=== PATIENT | female | born 1940 | race Caucasian/White ===

== ENCOUNTER → 2017-11-02 11:05 | Outpatient (CLI) | payer MEDICARE, OTHER, SELFPAY ==
[2014-05-31 16:10] VITALS: BP 128/66; BP 135/78; BP 173/44
[2014-07-06 18:09] VITALS: BMI 25.8
[2014-07-06 20:41] VITALS: BP 158/94
== END ==
PROVIDERS: Family Provider Internal Medicine; PCP Internal Medicine; Visit Provider Urology
DX: R35.0 Frequency of micturition (principal)
CPT/HCPCS: 36415; 87077; 87086; 87088; 87186

== ENCOUNTER → 2018-04-19 16:55 | Outpatient (CLI) | payer MEDICARE, OTHER, SELFPAY ==
--- NOTE | 2018-04-19 | CYSPIN_PTH ---
PATIENT: MATTIE FOX LOC: [facility] U#:[id number] AGE/SX: 85/F ROOM: RE04/19/[address]: RABIA Guzman : 1940 BED: DIS: SPEC #: [id number] RECD: 04/19/18 15:30 STATUS: STEPH DANIEL #: [id number] YOLIS: 04/19/18 00:[address]: Ammy Brennan NP DEPT: CYTOLOGY RECD BY: Bruce Light ENTERED: 04/20/18 07:58 SP TYPE: CYSPIN FL OTHR DR: Dr. Matheus Fajardo MD Tissues: Urine Procedures: Pap Stain (control) Special Stain Group II Cytospin Fluid HEADER OPERATION: Not noted PRE-OP DIAGNOSIS: Hematuria TISSUE SUBMITTED: Urine for cytology DIAGNOSIS CYTOLOGY Urine for cytology (cytospin): Negative for malignant cells. Bloody specimen. SJ:estrada 04/21/18 COMMENT Please make reference to previous cytology specimen ([id number]), urine for cytology with diagnosis of a few atypical urothelial cells noted and acute inflammation. CYTOLOGY STUDY Slides are reviewed. CYTOLOGY GROSS Received is 30 ml of clear yellow fluid labeled with the patient's name and and designated per the requisition as urine. Submitted for cytology preparation. / 04/20/18 TC: CPT: 32194
[2018-04-19 16:57] LABS: Cytology, Body Fluid / CSF SEE PATHOLOGY REPORT
== END ==
PROVIDERS: Family Provider Internal Medicine; PCP Internal Medicine; Visit Provider Nurse Practitioner Adult Health
DX: R31.9 Hematuria, unspecified (principal)
CPT/HCPCS: 88108; 88313

== ENCOUNTER → 2019-01-31 17:13 | Outpatient (CLI) | payer MEDICARE, OTHER, SELFPAY ==
[2014-07-06 18:09] VITALS: BMI 25.8
--- NOTE | 2019-01-31 | FLU_PTH ---
PATIENT: MATTIE FOX LOC: [facility] U#:[id number] AGE/SX: 85/F ROOM: RE01/31/[address]: RABIA Guzman : 1940 BED: DIS: SPEC #: [id number] RECD: 01/31/19 15:00 STATUS: STEPH DANIEL #: [id number] YOLIS: 01/31/19 00:[address]: Ammy Brennan NP DEPT: CYTOLOGY RECD BY: Leroy Wallis ENTERED: 02/01/19 09:02 SP TYPE: Fluid OTHR DR: Dr. Matheus Fajardo MD Tissues: Urine Procedures: Special Stain Group II Cytospin Fluid HEADER OPERATION: Not noted PRE-OP DIAGNOSIS: Microscopic hematuria TISSUE SUBMITTED: Urine for cytology DIAGNOSIS CYTOLOGY Urine for cytology (cytospin): Negative for malignant cells. See cytology study and comment. SJ:estrada 02/02/19 COMMENT Please make reference to previous specimens ([id number]) urine for cytology with diagnosis of a few atypical urothelial cells noted and acute inflammation and ([id number]) urine for cytology with diagnosis of negative for malignant cells, bloody specimen. CYTOLOGY STUDY Slides are reviewed. The specimen is cellular and predominantly consists of squamous epithelial cells. CYTOLOGY GROSS Received is 7 ml of yellow cloudy fluid labeled with the patient's name and and designated per the requisition as urine. Submitted for cytology preparation. /CC:cc 02/01/19 TC:4 CPT: 54251
[2019-01-31 18:11] LABS: Cytology, Body Fluid / CSF SEE PATHOLOGY REPORT; Mucous, Urine 0 SEEN /hpf (<or=2+); Red Blood Cells-Urine 0 SEEN /hpf (0-5)
[2019-01-31 19:03] LABS: Color, Urine Yellow (Yellow); Glucose, Dipstick Normal (Normal); Ketone-Dipstick Negative (Negative); Leukocyte Esterase-Dipstick 25 /ul (Negative); Nitrite-Dipstick Negative (Negative); Occult Blood-Urine 50 /ul (Negative); Protein-Dipstick Negative (Negative); Urine Bilirubin Dipstick Negative (Negative); Urine Clarity Clear (Clear); Urine Urobilinogen Normal (Normal)
[2019-01-31 19:13] LABS: Bacteria RARE /hpf (None Seen); Calcium Oxalate Crystals Ur 1+ /hpf (<or=2+); Squamous Epithelial Cells - UA 0-5 SEEN /hpf (5-10); White Blood Cells 0-5 SEEN /hpf (0-5)
== END ==
PROVIDERS: Family Provider Internal Medicine; PCP Internal Medicine; Referring Provider Nurse Practitioner Adult Health; Visit Provider Nurse Practitioner Adult Health
DX: R31.29 Other microscopic hematuria (principal)
CPT/HCPCS: 81001; 88108; 88305; 88313

== ENCOUNTER → 2019-09-20 08:43 | Outpatient (CLI) | payer MEDICARE, OTHER, SELFPAY ==
[2019-09-08 11:15] VITALS: BMI 27.7
--- NOTE | 2019-09-20 08:44 | ECHOCS_ITS ---
Reason For Study: Murmur Procedure This was a 2D Doppler, Color Flow transthoracic echocardiogram. The study was technically difficult. Contrast injection was performed. Exam performed in department. Left Ventricle Normal LV size. Left ventricular systolic function is normal. The estimated ejection fraction is 65 %. Diastolic function is indeterminate. No regional wall motion abnormalities noted. Right Ventricle Normal RV size. Normal systolic function. Atria Normal left atrium. Normal right atrium. No doppler evidence for ASD. Mitral Valve There is no mitral annular calcification. Mild focal mitral valve calcification of the anterior leaflet. Mild mitral valve stenosis. Mild (1+) mitral valve insufficiency. Tricuspid Valve Normal tricuspid valve. Trivial tricuspid valve insufficiency. Right ventricular systolic pressure estimated to be 25 mmHg. Aortic Valve Trisinus/trileaflet aortic valve. Mild focal aortic valve thickening. Mild focal aortic valve calcification. Mild aortic stenosis. Pulmonic Valve The pulmonic valve is not well visualized. Great Vessels Normal sized aortic root. Pericardium/Pleural No pericardial effusion. Medication Diluted definity 4ml given slow IV push to enhance endocardial definition. MMode/2D Measurements & Calculations LVIDd: 3.6 cm IVSd: 1.0 cm LVOT diam: 2.0 cm LVIDs: 2.5 cm LVPWd: 1.0 cm RVDd: 3.6 cm FS: 31.0 % LVOT area: 3.2 cm2 Ao root diam: 2.9 cm LAV(MOD-bp): 40.6 ml LA A4 area: 15.4 cm2 LAV(MOD-bp) Indexed: 21.5 ml/m2 LAV(MOD-sp2): 43.6 ml LAV(MOD-sp4): 36.6 ml RA A4 area: 12.0 cm2 Time Measurements MV dec time: 0.26 sec Doppler Measurements & Calculations MV E max efra: 100.8 cm/sec Lat Peak E' Efra: 6.6 cm/sec Med Peak E' Efra: 6.4 cm/sec MV A max efra: 124.0 cm/sec E/E' lat: 15.3 E/E' med: 15.8 MV E/A: 0.81 MV V2 max: 137.7 cm/sec MV P1/2t max efra: 124.2 cm/sec Ao V2 max: 201.6 cm/sec MV max P.6 mmHg MV P1/2t: 95.6 msec Ao max P.3 mmHg MV V2 mean: 71.5 cm/sec MV dec slope: 380.6 cm/sec2 Ao V2 mean: 144.8 cm/sec MV mean P.5 mmHg Ao mean P.2 mmHg MV V2 VTI: 46.4 cm MVA(P1/2t): 2.3 cm2 Ao V2 VTI: 48.3 cm MVA(VTI): 1.6 cm2 MAURISIO(I,D): 1.5 cm2 MAURISIO(V,D): 1.5 cm2 LV V1 max: 93.4 cm/sec SV(LVOT): 73.8 ml TR max efra: 232.8 cm/sec LV V1 max P.5 mmHg TR max P.7 mmHg LV V1 mean P.6 mmHg LV V1 mean: 56.6 cm/sec LV V1 VTI: 23.4 cm Interpretation Summary The study was technically difficult. Contrast injection was performed. Left ventricular systolic function is normal. The estimated ejection fraction is 65 %. Mild focal mitral valve calcification of the anterior leaflet. Mild mitral valve stenosis. Mild (1+) mitral valve insufficiency. Trivial tricuspid valve insufficiency. Mild aortic stenosis. Right ventricular systolic pressure estimated to be 25 mmHg. Diastolic function is indeterminate. Ordering Physician: Ruiz Rivera Referring Physician: Ruiz Rivera Performed By: Lino Marquez, [facility]
--- NOTE | 2019-09-20 08:44 | AAVD_ITS ---
Reason For Study: AAA Aorta Measurements Aorta Doppler Measurements Proximal aorta measures1.70 x 1.72cm. in cross- Peak systolic flow velocities within the proximal sectional axis. aorta measure 80.3 cm/sec. Proximal aorta measures1.72cm. in longitudinal Peak systolic flow velocities within the mid aorta axis. measure 100.1 cm/sec. Mid aorta measures1.69 x 1.63cm. in cross- Peak systolic flow velocities within the distal sectional axis. aorta measure 284.9 cm/sec. Mid aorta measures1.81cm. in longitudinal axis. Distal aorta measures1.03 x 1.03cm. in cross- sectional axis. Distal aorta measures1.0cm. in longitudinal axis. Left Iliac Artery Left iliac artery measures 0.49 x 0.51 cm. in the cross-sectional axis. Left iliac artery measures 0.56 cm. in the longitudinal axis. Peak systolic velocity in the left iliac artery measures 99.7 cm/sec. Right Iliac Artery Right iliac artery measures 0.56 x 0.55 cm. in the cross-sectional axis. Right iliac artery measures 0.56 cm. in the longitudinal axis. Peak systolic velocity in the right iliac artery measures 126 cm/sec. Procedure Aorta IVC Iliac vasculature or bypass grafts 33120. Exam performed in department. Interpretation Summary Maximal aortic dimensions 1.7 x 1.7 cm proximal abdominal aorta Increased flow velocities noted in the distal abdominal aorta at 284.9 cm/s flow. This is consistent with arterial occlusive disease. Left common iliac measures 0.49 x 0.51 cm with normal velocity. Right common iliac measures 0.56 x 0.55 cm with minimally increased velocities. Ordering Physician: Sary Anderson Referring Physician: Matheus Fajardo M.D. Performed By: Rita Dinero RVT
== END ==
PROVIDERS: Family Provider Internal Medicine; PCP Internal Medicine; Referring Provider Internal Medicine Cardiovascular Disease; Visit Provider Internal Medicine Cardiovascular Disease
DX: I71.4 Abdominal aortic aneurysm, without rupture (principal); I35.8 Other nonrheumatic aortic valve disorders; I10 Essential (primary) hypertension; R60.0 Localized edema
CPT/HCPCS: 93306; 93978; Q9957; A4216; C8929

== ENCOUNTER 2019-10-19 22:43 | Emergency (ER) | payer MEDICARE, SELFPAY ==
[2019-09-08 11:15] VITALS: BMI 27.7
[2019-10-19 22:44] VITALS: BP 149/67; PULSE 64; RESP 18; TEMP 36.8; O2SAT 95; BMI 28.2
--- NOTE | 2019-10-19 23:05 | ED.VIS.GEN ---
History of Present Illness Chief Complaint: Allergic Reaction Narrative: Patient is an 79-year-old female who presents with itching of her hands and feet. She states she has been having sinus issues and sinus drainage. She was prescribed Augmentin by her primary care physician. She has taken this medication previously. At about 830 she took the first dose and about 1 hour later developed itching of her hands and feet. No rash. No difficulty breathing. She states that she figured she should probably just take some Benadryl but she did not have any at home so presented here to the emergency department. Past Medical History - Allergies and Home Meds Allergies/Adverse Reactions: Allergies hydrocodone Allergy (Verified 10/19/19 22:46) Rash Sulfa (Sulfonamide Antibiotics) Allergy (Verified 10/19/19 22:46) Unknown acetaminophen [From Vicodin] Adverse Reaction (Verified 10/19/19 22:46) Other hydrocodone bitartrate [From Vicodin] Adverse Reaction (Verified 10/19/19 22:46) Other lovastatin [From Mevacor] Adverse Reaction (Verified 10/19/19 22:46) Other rosuvastatin calcium [From Crestor] Adverse Reaction (Verified 10/19/19 22:46) Other simvastatin [From Zocor] Adverse Reaction (Verified 10/19/19 22:46) Other Primary Care Physician: Matheus Fajardo MD [Primary Care Provider] - Past Medical History: - - Hypertension, hyperlipidemia Smoking Status: Current every day smoker Review of Systems All systems negative except as indicated General: Denies: Fever ENT: Reports: - - Sinus pressure and drainage Cardiovascular: Denies: Chest pain Respiratory: Denies: Dyspnea Gastrointestinal: Denies: Nausea, Vomiting Skin: Denies: Rash Neurological: Denies: Headache Allergy: Denies: Uticaria Physical Exam Vital Signs/Narrative: Vital Signs Temp Pulse Resp BP Pulse Ox 10/19/19 22:44 98.2 F 64 18 149/67 H 95 Inital Vital Signs reviewed: Yes General: Well nourished Head: Normocephalic Eyes: EOMI ENT: Moist mucous membranes, - - Airway patent Neck: Supple Cardiovascular: Regular rate, Regular rhythm Respiratory: No distress, CTA bilaterally. Negative for: Wheezing Abdomen: Soft Skin: Normal color, No rash Neurological: Alert Psychological: Normal affect Diagnostic/Tx/Re-eval - Medical Decision Making Patient has no rash, no urticaria, no difficulty breathing. She has no evidence of anaphylaxis. She was given a dose of Benadryl. She was advised to stop the Augmentin and follow-up with her primary care physician and was discharged home. ED Disposition - Plan for ED Patient: Disposition: Home or Assisted Living Diagnosis: Adverse drug reaction Instructions: ALLERGIC REACTION, Drug Referrals: Matheus Fajardo MD [Primary Care Provider] -
[2019-10-19] MEDS: DiphenhydrAMINE 25 MG Capsule PO (23:27)
== END 2019-10-19 23:32 | disposition home or self-care (01) ==
LOC: ED 23:22
PROVIDERS: Emergency Provider Emergency Medicine; PCP Internal Medicine
DX: L29.9 Pruritus, unspecified (principal); T36.0X5A Adverse effect of penicillins, initial encounter; T36.1X5A Adverse effect of cephalosporins and other beta-lactam antibiotics, initial encounter; E78.5 Hyperlipidemia, unspecified; I10 Essential (primary) hypertension; F17.200 Nicotine dependence, unspecified, uncomplicated; Z79.899 Other long term (current) drug therapy
CPT/HCPCS: 99283

== ENCOUNTER → 2020-12-25 08:51 | Outpatient (CLI) | payer MEDICARE, SELFPAY ==
[2020-11-29 09:01] VITALS: BMI 26.4
--- NOTE | 2020-12-25 08:53 | ECHOD_ITS ---
Reason For Study: MURMUR Procedure This was a 2D Doppler, Color Flow transthoracic echocardiogram. The study was technically difficult. Exam performed in department. Left Ventricle Normal LV size. Left ventricular systolic function is normal. The estimated ejection fraction is 65 %. Diastolic function is indeterminate. No regional wall motion abnormalities noted. Right Ventricle Normal RV size. Normal systolic function. Atria Normal left atrium. Normal right atrium. No doppler evidence for ASD. Mitral Valve There is no mitral annular calcification. Moderate focal mitral valve calcification of the anterior leaflet. Mild (1+) mitral valve insufficiency. Tricuspid Valve Normal tricuspid valve. Trivial tricuspid valve insufficiency. Right ventricular systolic pressure estimated to be 23 mmHg. Aortic Valve The aortic valve is not well visualized, however, based upon the 2D echocardiographic images obtained there appears to be diffuse thickening, calcification, and partial restriction of the aortic valve leaflets. Mild aortic stenosis. Trivial aortic valve insufficiency. Pulmonic Valve The pulmonic valve is not well visualized. Great Vessels Normal sized aortic root. Pericardium/Pleural No pericardial effusion. Epicardial fat. MMode/2D Measurements & Calculations LVIDd: 4.2 cm IVSd: 0.85 cm LVOT diam: 2.0 cm LVIDs: 3.0 cm LVPWd: 1.0 cm LVOT area: 3.1 cm2 RVDd: 2.4 cm FS: 28.5 % Ao root diam: 2.9 cm LAV(MOD-bp): 38.7 ml LA A4 area: 15.3 cm2 LAV(MOD-bp) Indexed: 21.1 ml/m2 LAV(MOD-sp2): 38.7 ml LAV(MOD-sp4): 38.7 ml LA dimension(2D): 3.2 cm RA A4 area: 11.6 cm2 Time Measurements MV dec time: 0.24 sec Doppler Measurements & Calculations MV E max efra: 91.5 cm/sec Lat Peak E' Efra: 5.4 cm/sec Med Peak E' Efra: 5.9 cm/sec MV A max efra: 114.6 cm/sec E/E' lat: 17.1 E/E' med: 15.6 MV E/A: 0.80 Ao V2 max: 220.7 cm/sec LV V1 max: 118.7 cm/sec SV(LVOT): 94.5 ml Ao max P.5 mmHg LV V1 max P.6 mmHg Ao V2 mean: 163.7 cm/sec LV V1 mean P.2 mmHg Ao mean P.6 mmHg LV V1 mean: 85.5 cm/sec Ao V2 VTI: 56.8 cm LV V1 VTI: 30.3 cm MAURISIO(I,D): 1.7 cm2 MAURISIO(V,D): 1.7 cm2 PA V2 max: 89.2 cm/sec TR max efra: 223.1 cm/sec TR max P.1 mmHg ECHO/Echo Complete Interpretation Summary The study was technically difficult. Left ventricular systolic function is normal. The estimated ejection fraction is 65 %. Moderate focal mitral valve calcification of the anterior leaflet. Mild (1+) mitral valve insufficiency. Trivial tricuspid valve insufficiency. Mild aortic stenosis. Trivial aortic valve insufficiency. Epicardial fat. Right ventricular systolic pressure estimated to be 23 mmHg. Diastolic function is indeterminate. Ordering Physician: Ruiz Rivera Referring Physician: Matheus Fajardo Performed By: Claribel Neville, NANI, RVT
== END ==
PROVIDERS: PCP Internal Medicine; Referring Provider Internal Medicine Cardiovascular Disease; Visit Provider Internal Medicine Cardiovascular Disease
DX: I71.4 Abdominal aortic aneurysm, without rupture (principal); I25.10 Atherosclerotic heart disease of native coronary artery without angina pectoris; I35.8 Other nonrheumatic aortic valve disorders; E78.2 Mixed hyperlipidemia; I10 Essential (primary) hypertension; Z95.5 Presence of coronary angioplasty implant and graft
CPT/HCPCS: 93306

== ENCOUNTER 2021-01-26 04:22 | Emergency (ER) | payer MEDICARE, SELFPAY ==
[2020-11-29 09:01] VITALS: BMI 26.4
[2021-01-26 04:22] VITALS: BP 162/77; PULSE 84; RESP 22; TEMP 37.9; O2SAT 94; BMI 28.3
--- NOTE | 2021-01-26 04:29 | ED.RN ---
CALLED FOR EKG PER RN REQUEST, PULLED OLD EKGS FOR
[2021-01-26 04:36] VITALS: BP 150/86; PULSE 81; RESP 23; O2SAT 93
--- NOTE | 2021-01-26 04:40 | EKG12_ITS ---
Test Reason : WEAKNESS Blood Pressure : / mmHG Vent. Rate : 082 BPM Atrial Rate : 082 BPM P-R Int : 172 ms QRS Dur : 062 ms QT Int : 368 ms P-R-T Axes : 056 000 051 degrees QTc Int : 429 ms Normal sinus rhythm Low voltage QRS Borderline ECG Confirmed by ZAID MONTOYA, AMY ([id number]), editor publications POLO YUSUF ([id number]) on 01/29/2021 11:02:57 AM Referred By: BRINA Confirmed By:AMY MAR MD
[2021-01-26 04:52] LABS: Absolute Lymphocyte Count 1.87 X10^3/uL (0.83-4.51); Absolute Neutrophil Count 10.6 X10^3/uL (2.0-7.7); Basophil# 0.04 X10^3/uL; Basophil% 0.3 % (0-1); Eosinophil# 0.03 X10^3/uL; Eosinophils% 0.2 % (0-5); Hematocrit 47.9 % (37-47); Hemoglobin 15.7 g/dL (12.0-15.0); Lymphocyte # 1.87 X10^3/ul (0.83-4.51); Lymphocyte % 14.3 % (19-41); Mean Corp Hgb Conc 32.8 g/dL (32-36); Mean Corpuscular Hgb 29.4 pg (27.0-32.0); Mean Corpuscular Volume 89.7 fL (81-99); Mean Platelet Vol. 11.1 fl (6.2-12.0); Monocyte# 0.46 X10^3/uL; Monocyte% 3.5 % (0-10); NRBC Flagged by Analyzer 0 % (0-5); Neutrophil # 10.63 X10^3/uL (2.7-7.7); Neutrophil % 81.2 % (47-70); Platelet Count 177 K/mm3 (150-450); RBC Distribution Width SD 42.5 fl (35.1-43.9); Red Blood Count 5.34 M/mm3 (4.2-5.4); White Blood Count 13.1 K/mm3 (4.4-11.0)
--- NOTE | 2021-01-26 05:18 | EX.ED.DYSGE1 ---
HPI History of Present Illness Chief Complaint: Weakness Informant: patient and spouse/S.O. Narrative Narrative: Patient is an 81-year-old female who presents to the emergency department with her after she was acting unusual. She was started on amoxicillin lately for a dental infection. She started to get itchiness of her palms of her hands and soles of her feet. They called the pharmacy and they were recommended to take some Benadryl. Patient became very tired and was falling asleep. Her woke her up and she started to have a headache on the opposite side of the previous dental infection. She decided take another Benadryl at that time. Patient then became very shaky and was having generalized weakness. She is having a hard time get up. Patient remembers this whole entire event. She is feeling much better at time of arrival to the ED. The weakness has resolved. Her shakiness has improved. She is still having a mild headache. She denies any visual changes. She denies any chest pain or shortness of breath. No abdominal pain. No urinary symptoms. 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 Bilateral carotid artery disease DDD (degenerative disc disease) Diabetic peripheral neuropathy associated with type 2 diabetes mellitus Essential hypertension GERD (gastroesophageal reflux disease) Mixed hyperlipidemia Old myocardial infarction JL on CPAP Presence of stent in coronary artery (~12/18/03) PVD (peripheral vascular disease) Stenosis of infrarenal abdominal aorta due to atherosclerosis (~03/11/04) Tobacco abuse Type 2 diabetes mellitus Home Medications aspirin 81 mg PO DAILY@0800 07/06/14 [History Last Taken Unknown] atenolol 25 mg PO DAILY 07/06/14 [History Last Taken Unknown] nitroglycerin 0.4 mg SUBLINGUAL Q5M PRN 07/06/14 [History Last Taken Unknown] paroxetine HCl 10 mg PO DAILY 07/06/14 [History Last Taken Unknown] atorvastatin 80 mg tablet 80 mg PO QHS 09/02/19 [History Last Taken Unknown] triamcinolone acetonide 55 mcg nasal spray aerosol 2 spray INTRANASAL DAILY 09/02/19 [History Last Taken Unknown] cholecalciferol (vitamin D3) 50 mcg (2,000 unit) tablet 4,000 unit PO DAILY tab 09/08/19 [History Last Taken Unknown] oxybutynin chloride 10 mg PO DAILY 01/26/21 [History Last Taken Unknown] Allergy/AdvReac Type Severity Reaction Status Date / Time hydrocodone Allergy Rash Verified 01/26/21 04:40 Sulfa (Sulfonamide Allergy Unknown Verified 01/26/21 04:40 Antibiotics) amoxicillin [From Augmentin] AdvReac Mild itching Verified 01/26/21 04:40 clavulanic acid AdvReac Mild itching Verified 01/26/21 04:40 [From Augmentin] acetaminophen [From Vicodin] AdvReac Other Verified 01/26/21 04:40 hydrocodone bitartrate AdvReac Other Verified 01/26/21 04:40 [From Vicodin] lovastatin [From Mevacor] AdvReac Other Verified 01/26/21 04:40 rosuvastatin calcium AdvReac Other Verified 01/26/21 04:40 [From Crestor] simvastatin [From Zocor] AdvReac Other Verified 01/26/21 04:40 Family History Father Myocardial infarction Heart disease CVA (cerebral vascular accident) Diabetes Brother CAD (coronary artery disease) Surgical History Cataract extraction status of left eye History of cystoscopy History of left breast biopsy History of surgery on wrist Presence of coronary angioplasty implant and graft (~12/18/03) Social History (Updated 11/29/20 @ 10:[address] Ruiz Rivera MD) Smoking Status: Current every day smoker alcohol intake: never substance use type: does not use caffeine: Yes Type: carbonated beverages Number of servings: 3 and tea Number of servings: 3 ROS ROS ED Constitutional Constitutional ED: Denies chills or fever(s) Eyes Eyes: Denies change in vision ENT ENT ED: Denies epistaxis or rhinorrhea Cardiovascular Cardiovascular: Denies chest pain or palpitations Respiratory/Chest Respiratory/Chest: Denies cough, dyspnea or dyspnea on exertion Gastrointestinal Gastrointestinal: Denies abdominal pain, diarrhea, nausea or vomiting Genitourinary Genitourinary ED: Denies dysuria, hematuria or urinary frequency Musculoskeletal Musculoskeletal: Denies back pain or neck pain Integumentary Denies rash Neurologic Neurologic: Reports headache(s) and weakness; Denies dizziness EXAM Physical Exam Const Vital Signs: 01/26/21 04:22 01/26/21 04:36 01/26/21 04:52 Temperature 100.3 F H Temperature Source Oral Pulse Rate 84 81 Respiratory Rate 22 H 23 H Respiratory Pattern Normal Blood Pressure 162/77 H 150/86 H Blood Pressure Mean 105 107 Pulse Ox 94 93 Oxygen Delivery Method Room Air Room Air 01/26/21 06:09 Temperature 100.8 F H Temperature Source Oral Pulse Rate 82 Respiratory Rate 18 Respiratory Pattern Blood Pressure 141/66 H Blood Pressure Mean 91 Pulse Ox 95 Oxygen Delivery Method Room Air Positive well nourished and well developed General Appearance ED: well developed and NAD HEENT Reports normocephalic, head/scalp atraumatic and moist mucous membranes Eyes PERRL and EOMs intact bilaterally Neck supple General: Negative for tenderness Chest Wall inspection of chest normal Resp normal respiratory effort and clear to auscultation bilaterally Auscultation: Negative for rales, rhonchi or wheezes Cardio regular rate, regular rhythm and no murmurs GI normal to inspection, nondistended, normoactive bowel sounds and non-tender Palpation: soft; Negative for guarding or rebound tenderness present Back/Spine no CVA tenderness Extremity normal to inspection General Extremety ED: Negative for edema or tenderness General Extremity: Negative for edema Neuro CN's II-XII intact bilaterally and no sensory deficits noted Sensorium / Orientation: alert Motor Exam: strength 5/5 throughout Psych mental status grossly normal Skin no rashes or lesions noted MDM MDM MDM Narrative Medical decision making narrative: Patient presents to the emergency department for alteration of her mental status as well as generalized weakness. This was after the is keeping her awake and she was attempting to fall asleep. Throughout course of ED stay patient ended up developing a fever. She is getting closer back to her baseline per the but still is a little bit altered. Given the fact she has a fever will do Covid swab as well as chest x-ray. Blood cultures and lactic being drawn. Urine did not show any signs of infection. Patient otherwise does not have any complaints. Patient being signed out due to end of shift. If patient does not return back to baseline patient will most likely require hospitalization. Lab Data Labs: Laboratory Results - last 24 hr 01/26/21 01/26/21 01/26/21 04:36 04:36 06:05 WBC 13.1 H RBC 5.34 Hgb 15.7 H Hct 47.9 H MCV 89.7 MCH 29.4 MCHC 32.8 RDW Std Deviation 42.5 RDW Coeff of Joslyn 13.0 Plt Count 177 MPV 11.1 Immature Gran % (Auto) 0.500 Neut % (Auto) 81.2 H Lymph % (Auto) 14.3 L [place] % (Auto) 3.5 Eos % (Auto) 0.2 Baso % (Auto) 0.3 Absolute Neuts (auto) 10.6 H Absolute Lymphs (auto) 1.87 Nucleated RBC % 0 Sodium 133 L Potassium 4.0 Chloride 101 Carbon Dioxide 26.0 Anion Gap 6 BUN 15 Creatinine 0.99 Estim Creat Clear Calc 41.01 Est GFR (MDRD) Af Amer 69 Est GFR (MDRD) Non-Af 57 L BUN/Creatinine Ratio 15.2 Glucose 152 H Calcium 8.8 Total Bilirubin 0.70 AST 20 ALT 25 Alkaline Phosphatase 84 Troponin I < 0.015 Total Protein 6.8 Albumin 3.5 Globulin 3.3 Albumin/Globulin Ratio 1.1 Urine Color Yellow Urine Clarity Clear Urine pH 7.0 Ur Specific [place] 1.010 Urine Protein Negative Urine Glucose (UA) Normal Urine Ketones Negative Urine Occult Blood 250 H Urine Nitrite Negative Urine Bilirubin Negative Urine Urobilinogen Normal Ur Leukocyte Esterase Negative Urine RBC 25-50 SEEN Urine WBC 0 SEEN Ur Squamous Epith Cells 0 SEEN Urine Bacteria RARE Urine Mucus 0 SEEN Discharge Plan Triage Chief Complaint: Weakness ED Provider: Lazaro Guzman Dx/Rx/DC Orders Prescriptions: No Action atorvastatin 80 mg tablet 80 mg PO QHS RF: 0 triamcinolone acetonide [Nasacort] 55 mcg aerosol,spray 2 spray INTRANASAL DAILY RF: 0 cholecalciferol (vitamin D3) 2,000 unit tablet 4,000 unit PO DAILY RF: 0 atenolol 25 MG tablet 25 mg PO DAILY RF: 0 paroxetine HCl 20 MG tablet 10 mg PO DAILY RF: 0 nitroglycerin 0.4 MG tablet 0.4 mg sublingual Q5M PRN (Reason: Chest Pain) RF: 0 aspirin 81 MG tablet,chewable 81 mg PO DAILY@0800 RF: 0 oxybutynin chloride 10 mg Tablet Extended Release 24hr 10 mg PO DAILY RF: 0 Primary Care Provider: Matheus Fajardo
[2021-01-26 05:31] LABS: ALB/GLOB Ratio 1.1 RATIO (0.9-2.4); AST(SGOT) 20 U/L (15-37); Alanine Aminotransfer ALT/SGPT 25 U/L (13-56); Albumin, Serum 3.5 g/dL (3.2-5.0); Alkaline Phosphatase 84 U/L (45-117); Anion Gap 6 (5-15); BUN 15 mg/dL (7-18); BUN/Creat Ratio 15.2 RATIO (10-20); Calcium,Total 8.8 mg/dL (8.5-10.1); Chloride 101 mmol/L (98-107); Creatinine, Serum 0.99 mg/dL (0.55-1.02); EST Glomerular Filtration Rate 57 mL/min (>60); Est Glom Filt Rate - Afr Amer 69 mL/min (>60); Estimated Creatinine Clearance 41.01 ml/min; Globulin 3.3 g/dL (2.2-4.2); Glucose 152 mg/dL (74-106); Protein, Total 6.8 g/dL (6.4-8.2); Sodium Level 133 mmol/L (136-145)
[2021-01-26 06:09] VITALS: BP 141/66; PULSE 82; RESP 18; TEMP 38.2; O2SAT 95
[2021-01-26 06:10] LABS: Mucous, Urine 0 SEEN /hpf (<or=2+); Squamous Epithelial Cells - UA 0 SEEN /hpf (5-10); White Blood Cells 0 SEEN /hpf (0-5)
[2021-01-26 06:23] LABS: Color, Urine Yellow (Yellow); Glucose, Dipstick Normal (Normal); Ketone-Dipstick Negative (Negative); Leukocyte Esterase-Dipstick Negative /ul (Negative); Nitrite-Dipstick Negative (Negative); Occult Blood-Urine 250 /ul (Negative); Protein-Dipstick Negative (Negative); Urine Bilirubin Dipstick Negative (Negative); Urine Clarity Clear (Clear); Urine Urobilinogen Normal (Normal)
[2021-01-26 06:34] LABS: Bacteria RARE /hpf (None Seen); Red Blood Cells-Urine 25-50 SEEN /hpf (0-5)
--- NOTE | 2021-01-26 06:55 | RAD_ITS ---
EXAM: XR CHEST, 1 VIEW CLINICAL INDICATION: fever, weakness TECHNIQUE: Frontal view of the chest. This report was created using [employer] report generation technology. COMPARISON: None. FINDINGS: LUNGS AND PLEURAL SPACES: Chronic prominent markings unchanged. No new infiltrate is seen. No pneumothorax. No effusion. HEART: Unremarkable. Cardiac silhouette not enlarged. MEDIASTINUM: Central airways and mediastinal contour are unremarkable. BONES/JOINTS: Unchanged osseous structures. SOFT TISSUES: Unremarkable. RAD/Chest 1 View (Portable) IMPRESSION: No significant change. No active pulmonary disease. Electronically Signed: Aj Ham MD at 8:12 EDT Tel , Service support ,
[2021-01-26 07:17] VITALS: BP 123/52; PULSE 81; RESP 22; TEMP 38.1; O2SAT 94
[2021-01-26] MEDS: Acetaminophen 325 MG Tablet 650 MG PO (07:29)
--- NOTE | 2021-01-26 07:35 | ED.RN ---
pt [place] but still confused. pulling off bp cuff and at wires. staring out blankly when attempted to reorient pt. temp 100.5 and tylenol given. rigors obs with fine motor.
[2021-01-26 08:54] VITALS: BP 116/90; RESP 16; TEMP 36.4; O2SAT 90
[2021-01-26] MEDS: Clindamycin HCl 150 MG Capsule 300 MG PO (08:57)
[2021-01-26 09:04] LABS: Lactic Acid 2.1 mmol/L (0.4-1.9)
--- NOTE | 2021-01-26 09:09 | CT_ITS ---
STUDY: CT BRAIN WITHOUT CONTRAST REASON FOR EXAM: Female, 81 years old. Headache RADIATION DOSAGE (If Supplied By Facility): CTDIvol = ( 38.43 ) mGy, DLP = ( 727.10 ) mGycm TECHNIQUE: Transaxial CT imaging of the brain was performed without administration of intravenous contrast material. Individualized dose optimization techniques were used for this CT. COMPARISON: No relevant priors. FINDINGS: Normal soft tissue structures. Normal calvarium. There is mild cerebral atrophy with widening of the extra-axial spaces and ventricular dilatation. There are areas of decreased attenuation within the white matter tracts of the supratentorial brain, consistent with microvascular disease changes. Normal basal ganglia and thalami. Normal brainstem. Normal cerebellum. There is no intracranial hemorrhage. There are no findings of an acute ischemic infarction. Atherosclerotic calcifications of the cavernous internal carotid arteries. Mild mucosal thickening of the right ethmoid sinus. CT/Brain/Head without Contrast IMPRESSION: Chronic involutional changes of the brain. No acute intracranial process. Electronically Signed: Aj Ham MD at 9:52 EDT Tel , Service support ,
[2021-01-26 10:25] VITALS: BP 125/62; PULSE 65; RESP 19; TEMP 36.4; O2SAT 93
[2021-01-26 12:31] LABS: Reflex Lactate? Y
== END 2021-01-26 10:48 | disposition home or self-care (01) ==
PROVIDERS: Emergency Medicine; Emergency Provider Emergency Medicine; PCP Internal Medicine
DX: R53.1 Weakness (principal); R41.0 Disorientation, unspecified; I25.10 Atherosclerotic heart disease of native coronary artery without angina pectoris; E11.51 Type 2 diabetes mellitus with diabetic peripheral angiopathy without gangrene; I10 Essential (primary) hypertension; K21.9 Gastro-esophageal reflux disease without esophagitis; E78.2 Mixed hyperlipidemia; F17.200 Nicotine dependence, unspecified, uncomplicated; Z79.899 Other long term (current) drug therapy
CPT/HCPCS: 36415; 70450; 71045; 80053; 81001; 83605; 84484; 85025; 87040; 87426; 93005; 99285; A4216

== ENCOUNTER 2021-07-08 10:57 | Emergency (ER) | payer MEDICARE, SELFPAY ==
[2021-07-08 10:57] VITALS: BP 137/81; PULSE 75; RESP 16; TEMP 36.7; O2SAT 98; BMI 23.9
--- NOTE | 2021-07-08 11:33 | ED.VIS.FALL ---
HPI HPI - Fall History of Present Illness Chief Complaint: Fall Narrative Narrative: Patient sustained a mechanical fall due to her chronic back pain and sciatica, she injured both knees. She had no other injury. She did have some relief from her sciatica for about a day or so last week after an injection however her symptoms returned and she still has back pain and which radiates to the left leg. She has no fevers or chills, no chest pain or shortness of breath. She has no abdominal pain. She did not hit her head or sustain any other injuries. [facility] Medical History (Updated 07/08/21 @ 13:[address] Ruiz Valdivia MD) AAA (abdominal aortic aneurysm) Aortic valve sclerosis Atherosclerotic heart disease of [place] coronary artery without angina pectoris Bilateral carotid artery disease DDD (degenerative disc disease) Diabetic peripheral neuropathy associated with type 2 diabetes mellitus Essential hypertension GERD (gastroesophageal reflux disease) Mixed hyperlipidemia Old myocardial infarction JL on CPAP Presence of stent in coronary artery (~12/18/03) PVD (peripheral vascular disease) Stenosis of infrarenal abdominal aorta due to atherosclerosis (~03/11/04) Tobacco abuse Type 2 diabetes mellitus Home Medications aspirin 81 mg PO DAILY@0800 07/06/14 [History Last Taken Unknown] atenolol 25 mg PO DAILY 07/06/14 [History Last Taken Unknown] nitroglycerin 0.4 mg SUBLINGUAL Q5M PRN 07/06/14 [History Last Taken Unknown] paroxetine HCl 10 mg PO DAILY 07/06/14 [History Last Taken Unknown] atorvastatin 80 mg tablet 80 mg PO QHS 09/02/19 [History Last Taken Unknown] triamcinolone acetonide 55 mcg nasal spray aerosol 2 spray INTRANASAL DAILY 09/02/19 [History Last Taken Unknown] cholecalciferol (vitamin D3) 50 mcg (2,000 unit) tablet 4,000 unit PO DAILY tab 09/08/19 [History Last Taken Unknown] clindamycin HCl [Cleocin HCl] 300 mg PO Q6H 7 Days #28 cap 01/26/21 [Rx Last Taken Unknown] oxybutynin chloride 10 mg PO DAILY 01/26/21 [History Last Taken Unknown] oxycodone-acetaminophen [Percocet] 1 tab PO Q8H PRN 3 Days #10 tab 07/08/21 [Rx Last Taken Unknown] Allergy/AdvReac Type Severity Reaction Status Date / Time hydrocodone Allergy Rash Verified 07/08/21 11:02 Penicillins [PCN] Allergy Other Verified 07/08/21 11:02 Sulfa (Sulfonamide Allergy Unknown Verified 07/08/21 11:02 Antibiotics) amoxicillin [From Augmentin] AdvReac Mild itching Verified 07/08/21 11:02 clavulanic acid AdvReac Mild itching Verified 07/08/21 11:02 [From Augmentin] acetaminophen [From Vicodin] AdvReac Other Verified 07/08/21 11:02 hydrocodone bitartrate AdvReac Other Verified 07/08/21 11:02 [From Vicodin] lovastatin [From Mevacor] AdvReac Other Verified 07/08/21 11:02 rosuvastatin calcium AdvReac Other Verified 07/08/21 11:02 [From Crestor] simvastatin [From Zocor] AdvReac Other Verified 07/08/21 11:02 Family History Father Myocardial infarction Heart disease CVA (cerebral vascular accident) Diabetes Brother CAD (coronary artery disease) Surgical History Cataract extraction status of left eye History of cystoscopy History of left breast biopsy History of surgery on wrist Presence of coronary angioplasty implant and graft (~12/18/03) Social History (Updated 11/29/20 @ 10:[address] Ruiz Rivera MD) Smoking Status: Current every day smoker tobacco type: cigarettes alcohol intake: never substance use type: does not use caffeine: Yes Type: carbonated beverages Number of servings: 3 and tea Number of servings: 3 ROS ROS ED ROS Narrative Social: Noncontributory Medications: Reviewed Past medical history: Reviewed Review of systems General: Patient has no head injury or loss of consciousness HEENT: No facial injury Neck: No neck pain Cardiovascular: Patient denies any chest pain or palpitations Chest wall: No chest wall contusions Respiratory: There is no shortness of breath GI: There is no nausea vomiting diarrhea or abdominal pain, no abdominal wall contusions Skin: No lacerations or abrasions Neurological: Patient has no memory loss, confusion, or any focal weakness Psychiatric: No recent behavioral changes Back: Chronic back pain no new pain. Musculoskeletal: Bilateral knee pain, she is able to ambulate. All other systems are reviewed and normal EXAM Physical Exam Narrative Exam Narrative: Physical exam Vitals reviewed General: Does not appear in significant distress, no obvious injuries HEENT: No facial injury Head: No head injury Eyes: Extraocular movements intact Neck: No C-spine tenderness with full range of motion Heart: Regular rate normal pulses Chest wall: No chest wall pain Lungs clear lungs bilaterally with normal inspiration and expiration without tachypnea GI: Abdomen is soft and nontender there is no mass no guarding no abdominal wall contusion : Stable pelvis Musculoskeletal: She has bilateral knee pain but full range of motion without laxity or effusion. Normal extensor mechanism bilaterally. Back: No erythema or calor or any signs of infection in the lumbar region. Skin: Slight abrasion over the left lateral millard region no bony tenderness Neurological: Patient is alert and oriented with no focal deficits Const Vital Signs: 07/08/21 10:57 Temperature 98.0 F Temperature Source Temporal Pulse Rate 75 Respiratory Rate 16 Blood Pressure 137/81 H Blood Pressure Mean 99 Pulse Ox 98 Oxygen Delivery Method Room Air MDM MDM MDM Narrative Medical decision making narrative: Patient has normal x-rays. I will discharge her with analgesia. At this time she has no signs of infection and she appears well. Radiography Diagnostic Testing: Clinical Impression(s) from Imaging Studies Knee X-Ray 07/08/21 11:36 IMPRESSION: Mild arthrosis of the medial femorotibial compartment. No demonstrated fracture. Electronically Signed: Ezekiel Traylor MD at 12:47 EDT Tel , Service support , Knee X-Ray 07/08/21 11:55 IMPRESSION: No demonstrated fracture. Electronically Signed: Ezekiel Traylor MD at 12:48 EDT Tel , Service support , Lumbar Spine X-Ray 07/08/21 12:02 IMPRESSION: Osteopenia with moderate to marked lumbar spondylosis at L4-5 and L5-S1, unchanged from prior study. No acute abnormality or evidence of erosive changes or fusion. Electronically Signed: Aguila Alejo MD at 12:31 EDT , Service support , Discharge Plan Triage Chief Complaint: Fall ED Provider: Ruiz Valdivia Dx/Rx/DC Orders Clinical Impression: Fall, Contusion of knee Instructions: Bruises (Contusions) Prescriptions: New oxycodone-acetaminophen [Percocet] 5-325 mg tablet 1 tab PO Q8H PRN (Reason: pain) 3 Days Qty: 10 RF: 0 No Action atorvastatin 80 mg tablet 80 mg PO QHS RF: 0 triamcinolone acetonide [Nasacort] 55 mcg aerosol,spray 2 spray INTRANASAL DAILY RF: 0 cholecalciferol (vitamin D3) 2,000 unit tablet 4,000 unit PO DAILY RF: 0 atenolol 25 MG tablet 25 mg PO DAILY RF: 0 paroxetine HCl 20 MG tablet 10 mg PO DAILY RF: 0 nitroglycerin 0.4 MG tablet 0.4 mg sublingual Q5M PRN (Reason: Chest Pain) RF: 0 aspirin 81 MG tablet,chewable 81 mg PO DAILY@0800 RF: 0 oxybutynin chloride 10 mg Tablet Extended Release 24hr 10 mg PO DAILY RF: 0 clindamycin HCl [Cleocin HCl] 300 MG capsule 300 mg PO Q6H 7 Days Qty: 28 RF: 0 Primary Care Provider: Matheus Fajardo Referrals: Matheus Fajardo MD [Primary Care Provider] - 3-5 Days Disposition Disposition: Home, Self Care
--- NOTE | 2021-07-08 11:36 | RAD_ITS ---
STUDY: X-RAY - LEFT KNEE REASON FOR EXAM: Left knee pain, left knee injury today. TECHNIQUE: 4 view(s) of the knee. COMPARISON: None. FINDINGS: There is osteopenia Normal visualized distal femur. Normal visualized proximal tibia and fibula. Normal proximal tibiofibular articulation. There is mild joint space narrowing of the medial femorotibial compartment. Normal lateral femorotibial compartment. Normal patellofemoral articulation. There is vascular calcification. RAD/Knee 4 or More Views IMPRESSION: Mild arthrosis of the medial femorotibial compartment. No demonstrated fracture. Electronically Signed: Ezekiel Traylor MD at 12:47 EDT Tel , Service support ,
--- NOTE | 2021-07-08 11:55 | RAD_ITS ---
STUDY: X-RAY - RIGHT KNEE REASON FOR EXAM: Right knee pain, right knee injury today. TECHNIQUE: 4 view(s) of the knee. COMPARISON: None. FINDINGS: There is osteopenia. Normal visualized distal femur. Normal visualized proximal tibia and fibula. Normal proximal tibiofibular articulation. Normal medial femorotibial compartment. Normal lateral femorotibial compartment. Normal patellofemoral articulation. The soft tissue structures are unremarkable. RAD/Knee 4 or More Views IMPRESSION: No demonstrated fracture. Electronically Signed: Ezekiel Traylor MD at 12:48 EDT Tel , Service support ,
--- NOTE | 2021-07-08 12:02 | RAD_ITS ---
STUDY: X-RAY - LUMBAR SPINE REASON FOR EXAM: Female, 81 years old. Pain. TECHNIQUE: 3 view(s) of the lumbar spine were obtained. COMPARISON: 05/21/2021. FINDINGS: Osteopenia. Normal lumbar lordosis. There is no substantial scoliosis. There is a normal alignment of the vertebrae. Diffuse facet sclerosis. Intervertebral disc space narrowing at L2-3, L3-4 and to the greatest degree L4-5 and L5-S1, unchanged from prior study. Marked vascular calcification. RAD/Lumbar Spine 2 or 3 Views IMPRESSION: Osteopenia with moderate to marked lumbar spondylosis at L4-5 and L5-S1, unchanged from prior study. No acute abnormality or evidence of erosive changes or fusion. Electronically Signed: Aguila Alejo MD at 12:31 EDT , Service support ,
== END 2021-07-08 13:56 | disposition home or self-care (01) ==
PROVIDERS: Emergency Provider Emergency Medicine; PCP Internal Medicine
DX: S80.02XA Contusion of left knee, initial encounter (principal); S80.01XA Contusion of right knee, initial encounter; I25.10 Atherosclerotic heart disease of native coronary artery without angina pectoris; E11.51 Type 2 diabetes mellitus with diabetic peripheral angiopathy without gangrene; I10 Essential (primary) hypertension; K21.9 Gastro-esophageal reflux disease without esophagitis; E78.2 Mixed hyperlipidemia; F17.210 Nicotine dependence, cigarettes, uncomplicated; Z79.899 Other long term (current) drug therapy; W18.30XA Fall on same level, unspecified, initial encounter; Y93.89 Activity, other specified; Y92.89 Other specified places as the place of occurrence of the external cause; Y99.8 Other external cause status
CPT/HCPCS: 72100; 73564; 99282

== ENCOUNTER 2021-07-26 15:53 | Emergency (ER) | payer MEDICARE, SELFPAY ==
[2021-07-26 15:55] VITALS: BP 108/62; PULSE 65; RESP 16; TEMP 35.9; O2SAT 96; BMI 21.3
--- NOTE | 2021-07-26 16:46 | CT_ITS ---
STUDY: CT BRAIN WITHOUT CONTRAST REASON FOR EXAM: Female, 81 years old. head injury RADIATION DOSAGE (If Supplied By Facility): CTDIvol = ( 44.99 ) mGy, DLP = ( 812.98 ) mGycm TECHNIQUE: Transaxial CT imaging of the brain was performed without administration of intravenous contrast material. Individualized dose optimization techniques were used for this CT. COMPARISON: 01/26/2021 FINDINGS: Normal soft tissue structures. Normal calvarium. There is mild cerebral atrophy with widening of the extra-axial spaces and ventricular dilatation. There are areas of decreased attenuation within the white matter tracts of the supratentorial brain, consistent with microvascular disease changes. Normal basal ganglia and thalami. Normal brainstem. Normal cerebellum. There is no intracranial hemorrhage. There are no findings of an acute ischemic infarction. Normal visualized paranasal sinuses. CT/Brain/Head without Contrast IMPRESSION: Chronic involutional changes of the brain. Electronically Signed: Aleoj Pelaez MD at 17:31 EDT Tel , Service support ,
--- NOTE | 2021-07-26 18:16 | EDS_ITS ---
HPI History of Present Illness Chief Complaint: Head Injury Narrative Narrative: Patient is an 81-year-old female who a few hours prior to arrival went to get into bed when she lost her balance and fell striking the head on the drywall and the ground. She denies any loss of consciousness and states that she was not on the ground for very long because her son whom she lives with was able to help her up. She does report history of blood thinner use. She states since the trauma she has had fatigue with light sensitivity and mild nausea. With concern for underlying brain bleed or skull fracture from the trauma patient was brought in for evaluation [facility] Medical History AAA (abdominal aortic aneurysm) Aortic valve sclerosis Atherosclerotic heart disease of [place] coronary artery without angina pectoris Bilateral carotid artery disease DDD (degenerative disc disease) Diabetic peripheral neuropathy associated with type 2 diabetes mellitus Essential hypertension GERD (gastroesophageal reflux disease) Mixed hyperlipidemia Old myocardial infarction JL on CPAP Presence of stent in coronary artery (~12/18/03) PVD (peripheral vascular disease) Stenosis of infrarenal abdominal aorta due to atherosclerosis (~03/11/04) Tobacco abuse Type 2 diabetes mellitus Home Medications aspirin 81 mg PO DAILY@0800 07/06/14 [History Last Taken Unknown] atenolol 25 mg PO DAILY 07/06/14 [History Last Taken Unknown] nitroglycerin 0.4 mg SUBLINGUAL Q5M PRN 07/06/14 [History Last Taken Unknown] paroxetine HCl 10 mg PO DAILY 07/06/14 [History Last Taken Unknown] atorvastatin 80 mg tablet 80 mg PO QHS 09/02/19 [History Last Taken Unknown] triamcinolone acetonide 55 mcg nasal spray aerosol 2 spray INTRANASAL DAILY 09/02/19 [History Last Taken Unknown] cholecalciferol (vitamin D3) 50 mcg (2,000 unit) tablet 4,000 unit PO DAILY tab 09/08/19 [History Last Taken Unknown] clindamycin HCl [Cleocin HCl] 300 mg PO Q6H 7 Days #28 cap 01/26/21 [Rx Last Taken Unknown] oxybutynin chloride 10 mg PO DAILY 01/26/21 [History Last Taken Unknown] oxycodone-acetaminophen [Percocet] 1 tab PO Q8H PRN 3 Days #10 tab 07/08/21 [Rx Last Taken Unknown] Allergy/AdvReac Type Severity Reaction Status Date / Time hydrocodone Allergy Rash Verified 07/26/21 15:59 Penicillins [PCN] Allergy Other Verified 07/26/21 15:59 Sulfa (Sulfonamide Allergy Unknown Verified 07/26/21 15:59 Antibiotics) amoxicillin [From Augmentin] AdvReac Mild itching Verified 07/26/21 15:59 clavulanic acid AdvReac Mild itching Verified 07/26/21 15:59 [From Augmentin] acetaminophen [From Vicodin] AdvReac Other Verified 07/26/21 15:59 hydrocodone bitartrate AdvReac Other Verified 07/26/21 15:59 [From Vicodin] lovastatin [From Mevacor] AdvReac Other Verified 07/26/21 15:59 rosuvastatin calcium AdvReac Other Verified 07/26/21 15:59 [From Crestor] simvastatin [From Zocor] AdvReac Other Verified 07/26/21 15:59 Family History Father Myocardial infarction Heart disease CVA (cerebral vascular accident) Diabetes Brother CAD (coronary artery disease) Surgical History Cataract extraction status of left eye History of cystoscopy History of left breast biopsy History of surgery on wrist Presence of coronary angioplasty implant and graft (~12/18/03) Social History (Updated 11/29/20 @ 10:[address] Ruiz Rivera MD) Smoking Status: Current every day smoker tobacco type: cigarettes alcohol intake: never substance use type: does not use caffeine: Yes Type: carbonated beverages Number of servings: 3 and tea Number of servings: 3 ROS ROS ED Constitutional Constitutional ED: Denies chills or fever(s) Cardiovascular Cardiovascular: Denies chest pain Respiratory/Chest Respiratory/Chest: Denies cough or dyspnea Gastrointestinal Gastrointestinal: Reports nausea; Denies abdominal pain, diarrhea or vomiting Genitourinary Genitourinary ED: Denies dysuria Musculoskeletal Musculoskeletal: Denies back pain, myalgias or neck pain Integumentary Denies rash Neurologic Neurologic: Reports headache(s) Hematologic/Lymphatic Hematologic/Lymphatic: Reports easy bleeding and easy bruising EXAM Physical Exam Const Vital Signs: 07/26/21 15:55 07/26/21 16:37 07/26/21 18:22 Temperature 96.6 F L Temperature Source Temporal Pulse Rate 65 Respiratory Rate 16 18 Respiratory Effort Normal Respiratory Depth Normal Respiratory Pattern Normal Blood Pressure 108/62 Blood Pressure Mean 77 Pulse Ox 96 Oxygen Delivery Method Room Air Room Air Positive well nourished and well developed General Appearance ED: well developed HEENT HEENT Narrative: Patient has mild soft tissue swelling along the right occipital portion of her scalp consistent with a hematoma but no signs of depressed or basilar skull fracture Eyes PERRL and EOMs intact bilaterally Neck supple Neck Narrative: No bony deformity or step-off of the cervical spine no midline pain on palpation Chest Wall palpation of chest normal Resp normal respiratory effort and clear to auscultation bilaterally Cardio regular rate and regular rhythm GI normal to inspection, nondistended, normoactive bowel sounds, non-tender, non- distended and no masses Auscultation: normoactive bowel sounds Palpation: soft Back/Spine Back/Spine Narrative: No bony deformity or step-off of the thoracic or lumbar spine no midline pain on palpation Extremity normal to inspection Neuro oriented x3 and CN's II-XII intact bilaterally Sensorium / Orientation: alert Motor Exam: strength 5/5 throughout Psych mental status grossly normal Skin Skin Narrative: Soft tissue swelling/hematoma to the scalp as documented above MDM MDM MDM Narrative Medical decision making narrative: Patient presented to the ER after mechanical fall and therefore there is no need for cardiac or syncope work-up. With her head injury and blood thinner use however a CT was obtained to rule out underlying skull fracture or brain bleed. Imaging test was negative. Her history is consistent with concussion with nausea headache and fatigue following trauma. However this does not need to be admitted and it can be treated with symptomatic care while at home and therefore patient will be discharged Radiography Diagnostic Testing: Clinical Impression(s) from Imaging Studies Brain CT 07/26/21 16:46 IMPRESSION: Chronic involutional changes of the brain. Electronically Signed: Alejo Pelaez MD at 17:31 EDT Tel , Service support , Discharge Plan Triage Chief Complaint: Head Injury ED Provider: Maury Melton Dx/Rx/DC Orders Clinical Impression: Closed head injury, Concussion, Accidental fall Instructions: Concussion Dc, ED Head Injury (Adult) Prescriptions: No Action atorvastatin 80 mg tablet 80 mg PO QHS RF: 0 triamcinolone acetonide [Nasacort] 55 mcg aerosol,spray 2 spray INTRANASAL DAILY RF: 0 cholecalciferol (vitamin D3) 2,000 unit tablet 4,000 unit PO DAILY RF: 0 atenolol 25 MG tablet 25 mg PO DAILY RF: 0 paroxetine HCl 20 MG tablet 10 mg PO DAILY RF: 0 nitroglycerin 0.4 MG tablet 0.4 mg sublingual Q5M PRN (Reason: Chest Pain) RF: 0 aspirin 81 MG tablet,chewable 81 mg PO DAILY@0800 RF: 0 oxybutynin chloride 10 mg Tablet Extended Release 24hr 10 mg PO DAILY RF: 0 clindamycin HCl [Cleocin HCl] 300 MG capsule 300 mg PO Q6H 7 Days Qty: 28 RF: 0 oxycodone-acetaminophen [Percocet] 5-325 mg tablet 1 tab PO Q8H PRN (Reason: pain) 3 Days Qty: 10 RF: 0 Primary Care Provider: Matheus Fajardo Referrals: Matheus Fajardo MD [Primary Care Provider] - Disposition Disposition: Home, Self Care Discharge Date/Time: 07/26/21 18:22
[2021-07-26 18:22] VITALS: RESP 18
== END 2021-07-26 18:22 | disposition home or self-care (01) ==
PROVIDERS: Emergency Provider Emergency Medicine; PCP Internal Medicine
DX: S06.0X0A Concussion without loss of consciousness, initial encounter (principal); I25.10 Atherosclerotic heart disease of native coronary artery without angina pectoris; E11.51 Type 2 diabetes mellitus with diabetic peripheral angiopathy without gangrene; I10 Essential (primary) hypertension; K21.9 Gastro-esophageal reflux disease without esophagitis; E78.2 Mixed hyperlipidemia; Z95.5 Presence of coronary angioplasty implant and graft; Z79.899 Other long term (current) drug therapy; F17.210 Nicotine dependence, cigarettes, uncomplicated; W18.30XA Fall on same level, unspecified, initial encounter; Y93.89 Activity, other specified; Y92.003 Bedroom of unspecified non-institutional (private) residence as the place of occurrence of the external cause; Y99.8 Other external cause status
CPT/HCPCS: 70450; 99282

== ENCOUNTER 2021-07-30 15:30 | Outpatient (RCR) | payer MEDICARE, SELFPAY ==
--- NOTE | 2021-07-22 14:03 | HP.PTEVAL_ITS ---
Patient's Visit Information MATTIE FOX is a 81 year old F referred to Physical Therapy by RABIA Bull with a diagnosis of LBP and debilitation. Date of Evaluation: 07/22/21 Physical Therapist: Stephen Craig, PT, ATC - Visit Plan Frequency: 2x /Week Duration: 1 Week Plan: Issue and instruct Pt on SKTC/DKTC stretches, core strengthening ex's, L LE strengthening, and balance and proprio - Subjective Pt reports she is here today for 2 major concerns. Pt reports she has had a couple major falls recently secondary to her L leg collapsing for no specific reason. Pt reports it feels like her L LE spasms for a second and then just gives out on her. Pt reports this has happened several times. Pt also notes she also has LBP now which is a direct result of her falls. Pt reports she is here today in order to get some exercises that will help with these concerns for her to complete at home. Pt denies tingling or numbness in her legs, but reports she has achiness in B quad regions. Pt reports sleep difficulty at this time without the use of a hot pack to help her relax. Pt reports she had recent xrays which revealed OA throughout the spine. Pt reports she is unable to perform activities that require her to stand for a long period of time, such as cooking and other chores. Pt notes her is around and able to help with these duties. Pt reports sitting, standing, and walking activities all increase her pain. 5-6/10 pain currently, increases to 8/10 at worst. - Pain LBP Pain Intensity (Out of 10): 6 Pain Intensity Range: 8 - Objective Neuro: B LE sensation is WNL to light touch. B patellar reflex= 2/3. MMT: B hip flexion, L knee knee ext and flex are all 4-/5. All other B LE MMT 5/5 throughout. L/S ROM: Flexion is WNL. Extension is severely limited. Repeated movements: SKTC and DKTC 15 sec x 3. Balance: Pt is unable to stand up I without the use of her walker secondary to her LOB. Pt is also unable to ambulate without the use of her walker - Balance/Special Test Scores Oswestry Low Back Score: 30 - Goals Goal 1:: I with HEP after 2 visits Goal Time Frame: 2 Weeks - Rehabilitation Potential Physical Therapy Diagnosis: Pt has LBP, usteady gait, and LE weakness secondary to debilitation Rehabilitation Potential: Good - Anticipated Interventions Patient/Client Instruction: Educate patient on: Condition, Plan of Care For the Purpose of:: To improve self management Therapeutic Exercise to Include: Strength training, Balance training, Flexibilty training, Dynamic Lumbar Stabilization For the Purpose of:: To decrease pain, To improve muscle performance and motor function Thank you for the opportunity to evaluate your patient. For Medicare and Medicare HMO plans, please review the plan of care and approve it. It will need to be FAXED BACK to us at [phone] for Medicare purposes. For Medicare only, by signing this I certify the plan of care. Please let me know if there are questions or concerns regarding this plan of care. Physician Signature: Date:
--- NOTE | 2021-10-14 10:00 | HP.PT.NRP ---
MATTIE FOX was seen in my office for initial evaluation on 07/22/21. The following Plan of Care was established for this patient: Initial Frequency: 2x /Week Initial Duration: 1 Week Patient/Client Instruction: Educate patient on: Condition, Plan of Care For the Purpose of:: To improve self management Therapeutic Exercise to Include: Strength training, Balance training, Flexibilty training, Dynamic Lumbar Stabilization For the Purpose of:: To decrease pain, To improve muscle performance and motor function This patient was last seen in our office . Pertinent comments regarding their Physical therapy will appear below: Pt was treated for 2 PT visits for LBP and debilitation through the date of 07/30/21. Pt has not returned today and is therefore discontinued at this time. At this point I will be discontinuing this patient from physical therapy. I would be happy to see this patient again in the future if found appropriate by the physician. Thank you! Stephen Craig, PT, ATC Balance/Gait/Functional tests - Balance/Special Test Scores Oswestry Low Back Score: 30
== END 2021-07-30 19:00 | disposition home or self-care (01) ==
LOC: PT 15:30
PROVIDERS: PCP Internal Medicine; Referring Provider Nurse Practitioner Family; Visit Provider Nurse Practitioner Family
DX: M53.3 Sacrococcygeal disorders, not elsewhere classified (principal); M46.96 Unspecified inflammatory spondylopathy, lumbar region; M51.37 Other intervertebral disc degeneration, lumbosacral region; M47.817 Spondylosis without myelopathy or radiculopathy, lumbosacral region; M54.17 Radiculopathy, lumbosacral region
CPT/HCPCS: 97110; 97161

== ENCOUNTER → 2021-09-18 06:13 | Outpatient (CLI) | payer MEDICARE, SELFPAY ==
--- NOTE | 2021-09-18 15:09 | NEURO ---
NCS and/or EMG Patient Report Ordering Doctor: Qian Leyva DATE OF SERVICE: 09/18/21 Yulissa presents for electrodiagnostic testing of the left lower limb she reports aching left leg pain with intermittent weakness. She feels more stable with the use of an assistive device Electrodiagnostic findings: Left peroneal motor nerve demonstrates normal distal latency with reduced amplitude and normal conduction velocity. Left tibial motor latency was within normal limits with reduced amplitude and borderline reduced conduction velocity. Normal tibial and peroneal F-wave. Normal left sural and superficial peroneal latencies. H reflex is prolonged bilaterally. On needle EMG, all muscles tested in the left lower limb showed no evidence of denervation with normal motor unit action potentials Electrodiagnostic impression: This is an abnormal study in the left lower limb 1. 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 This may account for left leg pain and weakness. 2. No electrodiagnostic evidence for lumbosacral radiculopathy.
== END ==
LOC: PSN 06:14
PROVIDERS: PCP Internal Medicine; Referring Provider Physician Assistant Surgical; Visit Provider Physician Assistant Surgical
DX: R20.2 Paresthesia of skin (principal); M54.16 Radiculopathy, lumbar region; S76.102D Unspecified injury of left quadriceps muscle, fascia and tendon, subsequent encounter
CPT/HCPCS: 95886; 95909

== ENCOUNTER → 2022-04-22 | Outpatient (CLI) | payer MEDICARE, SELFPAY ==
--- NOTE | 2022-04-22 09:19 | ECHOD_ITS ---
Reason For Study: ASHD, AV STENOSIS Procedure This was a 2D Doppler, Color Flow transthoracic echocardiogram. The study was technically difficult. Exam performed in department. Left Ventricle Normal LV size. Mid cavitary false tendon noted. Left ventricular systolic function is normal. The estimated ejection fraction is 65 %. Diastolic function is indeterminate. No regional wall motion abnormalities noted. Right Ventricle Normal RV size. Normal systolic function. Atria Normal left atrium. Normal right atrium. No doppler evidence for ASD. Mitral Valve There is no mitral annular calcification. Moderate focal mitral valve calcification of the anterior leaflet. Mild (1+) mitral valve insufficiency. Tricuspid Valve Normal tricuspid valve. Mild tricuspid valve insufficiency. Right ventricular systolic pressure estimated to be 24 mmHg. Aortic Valve The aortic valve is not well visualized in the short axis view, however, based upon the images obtained there appears to be thickening, calcification and partial restriction. Mild to moderate aortic stenosis. Pulmonic Valve The pulmonic valve is not well visualized. Great Vessels Normal sized aortic root. Pericardium/Pleural No pericardial effusion. MMode/2D Measurements & Calculations LVIDd: 4.2 cm IVSd: 0.89 cm LVOT diam: 2.0 cm LVIDs: 3.0 cm LVPWd: 0.96 cm LVOT area: 3.1 cm2 RVDd: 3.3 cm FS: 28.6 % Ao root diam: 2.7 cm LAV(MOD-bp): 38.4 ml LA A4 area: 13.9 cm2 LAV(MOD-bp) Indexed: 21.7 ml/m2 LAV(MOD-sp2): 38.2 ml LAV(MOD-sp4): 32.8 ml LA dimension(2D): 3.5 cm RA A4 area: 12.5 cm2 Time Measurements MV dec time: 0.28 sec Doppler Measurements & Calculations MV E max efra: 96.6 cm/sec Lat Peak E' Efra: 7.3 cm/sec Med Peak E' Efra: 6.9 cm/sec MV A max efra: 105.7 cm/sec E/E' lat: 13.2 E/E' med: 14.1 MV E/A: 0.91 MV dec slope: 348.2 cm/sec2 Ao V2 max: 224.9 cm/sec LV V1 max: 97.1 cm/sec Ao max P.2 mmHg LV V1 max P.8 mmHg Ao V2 mean: 158.6 cm/sec LV V1 mean P.0 mmHg Ao mean P.6 mmHg LV V1 mean: 65.9 cm/sec Ao V2 VTI: 57.7 cm LV V1 VTI: 25.6 cm MAURISIO(I,D): 1.4 cm2 MAURISIO(V,D): 1.3 cm2 SV(LVOT): 78.6 ml PA V2 max: 79.6 cm/sec TR max efra: 229.0 cm/sec TR max P.0 mmHg ECHO/Echo Complete Interpretation Summary The study was technically difficult. Left ventricular systolic function is normal. The estimated ejection fraction is 65 %. Moderate focal mitral valve calcification of the anterior leaflet. Mild (1+) mitral valve insufficiency. Mild tricuspid valve insufficiency. The aortic valve is not well visualized in the short axis view, however, based upon the images obtained there appears to be thickening, calcification and partial restriction. Mild to moderate aortic stenosis. Right ventricular systolic pressure estimated to be 24 mmHg. Diastolic function is indeterminate. Ordering Physician: Ruiz Rivera Referring Physician: Matheus Fajardo Performed By: Claribel Neville RDCS, RVT
== END | disposition home or self-care (01) ==
PROVIDERS: PCP Internal Medicine; Referring Provider Internal Medicine Cardiovascular Disease; Visit Provider Internal Medicine Cardiovascular Disease
DX: I25.10 Atherosclerotic heart disease of native coronary artery without angina pectoris (principal); I35.0 Nonrheumatic aortic (valve) stenosis
CPT/HCPCS: 93306

== ENCOUNTER 2024-11-10 13:05 | Observation (INO) | payer MEDICARE, SELFPAY ==
[2024-11-10] VITALS (11 sets, daily range): BP systolic 124–182; BP diastolic 64–85; PULSE 65–85; RESP 14–25; TEMP 36.8–38.2; O2SAT 89–98; BMI 25.0; BMI 23.5
--- NOTE | 2024-11-10 13:12 | RAD_ITS ---
PROCEDURE: CHEST 1 VIEW REASON FOR EXAM: Neurological deficit, acute. Stroke suspected. TECHNIQUE: Single frontal image including the chest and abdomen. COMPARISON: None provided. RAD/Chest 1 View IMPRESSION: Generalized osteopenia is present. No acute osseous changes seen. Lungs appear clear of acute disease. No pleural effusion or pneumothorax is noted. The cardiomediastinal silhouette is within the normal range for age. No evidence of acute cardiopulmonary disease. Reading Location: [id number]
--- NOTE | 2024-11-10 13:12 | CT_ITS ---
EXAM: CT scan of the head without intravenous contrast administration. CLINICAL HISTORY: Neuro deficit. Acute stroke suspected. COMPARISON: Comparison is made with prior study dated July 26, 2021. TECHNIQUE: Multiple axial tomographic images were obtained without intravenous contrast administration. Coronal and sagittal reconstruction was obtained as well. FINDINGS: Moderate degree of cerebral atrophy. There is evidence of decreased attenuation in the deep white matter in the periventricular distribution in keeping with chronic small-vessel disease. Mild calcification of the basal ganglia bilaterally suggestive of chronic changes. Calcification of the cavernous portions of the internal carotid arteries bilaterally. Mild degree of cerebellar atrophy. Partial opacification of the right ethmoid sinus. CT/STROKE Brain/Head without Cont IMPRESSION: Chronic changes. No acute abnormality is seen. The results were communicated with Dr. Fitzpatrick the referring physician. Reading Location: [place] [id number]
--- NOTE | 2024-11-10 13:12 | EKG12_ITS ---
Test Reason : Blood Pressure : */* mmHG Vent. Rate : 76 BPM Atrial Rate : 76 BPM P-R Int : 190 ms QRS Dur : 68 ms QT Int : 374 ms P-R-T Axes : 56 -9 57 degrees QTcB Int : 420 ms Normal sinus rhythm Low voltage QRS Inferior infarct , age undetermined Abnormal ECG Confirmed by LORENA MONTOYA, SANDRA ([id number]), editor greeting card POLO YUSUF ([id number]) on 11/14/2024 8:05:23 AM Referred By: BABITA Confirmed By: SANDRA CARRILLO MD
--- NOTE | 2024-11-10 13:13 | CT_ITS ---
PROCEDURE: STROKE CTA HEAD AND NECK W/CON REASON FOR EXAM: Possible acute stroke. TECHNIQUE: CTA imaging of the head and neck from the aortic arch to the skull vertex with intravenous contrast. 3D reconstructions. CONTRAST: 94 cc of Isovue 370. COMPARISON: Comparison is made with prior CT scan of the head done earlier in the day. FINDINGS: Heterogeneous appearance of the right lobe of the thyroid suggestive of possible goiter is change. Aortic Arch: Normal size and branching pattern. Mild atherosclerotic plaque. Brachiocephalic and Subclavians: Tight stenosis due to calcific plaque at the origin of the left subclavian artery. RIGHT Carotid: Right CCA: Unremarkable. Right ICA: Unremarkable. Maximum stenosis (NASCET): % Right ECA: Unremarkable. LEFT Carotid: Left CCA: Unremarkable. Left ICA: Near occlusion at the origin of the left internal carotid artery due to calcific plaque formation. Maximum stenosis (NASCET): % Left ECA: Unremarkable. Vertebrals: Codominant. Arise from the subclavians. Both vertebrals form the basilar. RIGHT Vertebral: Unremarkable. LEFT Vertebral: Tiny left vertebral artery. No intracranial aneurysms or large vascular malformations are identified. Anterior cerebral arteries: Unremarkable. Middle cerebral arteries: Unremarkable. Basilar artery: Unremarkable. Posterior cerebral arteries: Unremarkable. Other major branches of the posterior circulation: Unremarkable. Major venous structures: Unremarkable. Other findings: No lymphadenopathy. Lung apices are clear. Bones are unremarkable. CT/STROKE CTA Head AND Neck W/Con IMPRESSION: RIGHT CAROTID: Unremarkable. LEFT CAROTID: Tight stenosis at the origin of left internal carotid artery. VERTEBRALS: Tiny left vertebral artery. INTRACRANIAL: No large vessel obstruction is seen. One or more dose reduction techniques were used (e.g., Automated exposure contr ol, adjustment of the mA and/or kV according to patient size, use of iterative reconstruction technique). Reading Location: [place] [id number]
--- NOTE | 2024-11-10 13:16 | ED.VIS.STROK ---
HPI History of Present Illness Chief Complaint: Neuro S/Sx Detail of Chief Complaint: Concern for stroke Informant: patient and EMS Narrative Narrative: Patient presents to the emergency department via EMS with concern for possible stroke. Patient's called the squad for slurred speech and right-sided facial droop. Last known well was about midnight last night however she did wake up around 2 AM to use the restroom but the did not talk to her or see her at that time. This morning she did not wake up like normal and slept in when she did finally wake up she did not seem like herself. Patient denies recent illness of fever or cough. She denies headache. She denies chest pain or shortness of breath. [facility] Medical History (Updated 11/10/24 @ 14:[address] Arleen Lord DO) Alzheimer's dementia Abdominal aortic aneurysm without rupture Tobacco abuse Aortic valve sclerosis Old myocardial infarction JL on CPAP PVD (peripheral vascular disease) Presence of stent in coronary artery (~12/18/03) Stenosis of infrarenal abdominal aorta due to atherosclerosis (~03/11/04) Diabetic peripheral neuropathy associated with type 2 diabetes mellitus Type 2 diabetes mellitus DDD (degenerative disc disease) Bilateral carotid artery disease GERD (gastroesophageal reflux disease) Essential hypertension Mixed hyperlipidemia Atherosclerotic heart disease of [place] coronary artery without angina pectoris Home Medications ?Medication ?Instructions ?Recorded ?Last Taken ?Type aspirin 81 mg chewable tablet 81 mg PO DAILY@0800 07/06/14 Unknown History atenolol 25 mg tablet 25 mg PO DAILY 07/06/14 Unknown History atorvastatin 80 mg tablet 80 mg PO QHS 09/02/19 Unknown History gabapentin 300 mg capsule 300 mg PO TID 09/18/22 Unknown History paroxetine HCl 10 mg tablet 10 mg PO DAILY 09/18/22 Unknown History cholecalciferol (vitamin D3) 25 25 mcg PO BID 11/10/24 11/09/24 History mcg (1,000 unit) capsule donepezil 10 mg tablet 10 mg PO DAILY 11/10/24 Unknown History mirabegron 50 mg tablet,extended 50 mg PO DAILY 11/10/24 Unknown History release 24 hr triamcinolone acetonide 55 mcg 2 spray intranasal DAILY PRN 11/10/24 Unknown History nasal spray aerosol (24 Hour Nasal congestion Allergy) Allergy/AdvReac Type Severity Reaction Status Date / Time hydrocodone Allergy Rash Verified 11/10/24 13:08 Penicillins (PCN) Allergy Other Verified 11/10/24 13:08 Sulfa (Sulfonamide Allergy Unknown Verified 11/10/24 13:08 Antibiotics) amoxicillin (From Augmentin) AdvReac Mild itching Verified 11/10/24 13:08 clavulanic acid (From AdvReac Mild itching Verified 11/10/24 13:08 Augmentin) acetaminophen (From Vicodin) AdvReac Other Verified 11/10/24 13:08 hydrocodone bitartrate (From AdvReac Other Verified 11/10/24 13:08 Vicodin) lovastatin (From Mevacor) AdvReac Other Verified 11/10/24 13:08 rosuvastatin calcium (From AdvReac Other Verified 11/10/24 13:08 Crestor) simvastatin (From Zocor) AdvReac Other Verified 11/10/24 13:08 Family History (Reviewed 06/05/23 @ 15:16 by Autumn Medina CLINICAL TRAINING COORDINATOR, CLINICAL TRAINING COORDINATOR-C) Father Myocardial infarction Heart disease CVA (cerebral vascular accident) Diabetes Brother CAD (coronary artery disease) Surgical History History of left breast biopsy Cataract extraction status of left eye History of surgery on wrist History of cystoscopy Presence of coronary angioplasty implant and graft (~12/18/03) Social History (Reviewed 06/05/23 @ 15:16 by Autumn Medina CLINICAL TRAINING COORDINATOR, CLINICAL TRAINING COORDINATOR-C) Smoking Status: Current every day smoker tobacco type: cigarettes alcohol intake: never substance use type: does not use caffeine: Yes Type: carbonated beverages Number of servings: 3 and tea Number of servings: 3 ROS ROS ED Review of Systems ROS Unobtainable: other Constitutional Constitutional ED: Reports lethargy; Denies chills, fever(s), sweats or weight loss Eyes Eyes: Denies blurry vision, change in vision or diplopia ENT ENT ED: Denies rhinorrhea or sore throat Cardiovascular Cardiovascular: Denies chest pain, orthopnea or racing heartbeat Respiratory/Chest Respiratory/Chest: Denies cough, dyspnea, dyspnea on exertion, orthopnea or sputum Gastrointestinal Gastrointestinal: Denies abdominal pain, diarrhea, nausea or vomiting Genitourinary Genitourinary ED: Denies dysuria, hematuria or urinary frequency Musculoskeletal Musculoskeletal: Denies arthralgias, back pain, myalgias or neck pain Integumentary Denies abscess, Abrasions or rash Neurologic Neurologic: Reports other Details: Slurred speech and right facial droop ; Denies headache(s) or weakness Psychiatric Psychiatric: Denies anxiety, depression or suicidal thoughts Endocrine Endocrinology: Denies polydipsia, polyphagia or polyuria Hematologic/Lymphatic Hematologic/Lymphatic: Denies easy bleeding, easy bruising or lymphadenopathy Allergic/Immunologic Allergic/Immunologic ED: Denies mouth swelling, tongue swelling or urticaria EXAM Physical Exam Const Vital Signs: 11/10/24 13:08 11/10/24 13:16 11/10/24 13:30 Temperature 98.9 F Temperature Source Temporal Pulse Rate 80 80 Respiratory Rate 18 24 H Blood Pressure 182/85 H Blood Pressure Mean 117 Pulse Ox 98 98 89 Oxygen Delivery Method Room Air Room Air Room Air Oxygen Flow Rate (L/min) 11/10/24 13:46 Temperature Temperature Source Pulse Rate 85 Respiratory Rate 22 H Blood Pressure 153/67 H Blood Pressure Mean 95 Pulse Ox 96 Oxygen Delivery Method Nasal Cannula Oxygen Flow Rate (L/min) 2 Positive well nourished and well developed General Appearance ED: well developed and NAD HEENT Reports TM's clear and moist mucous membranes normocephalic and atraumatic; Negative for trauma or tenderness Tympanic Membrane ED: Yes TM's clear Eyes PERRL and EOMs intact bilaterally General Eye ED: Negative for pale conjunctiva or scleral icterus Neck no lymphadenopathy, supple and no JVD General: Negative for tenderness Chest Wall inspection of chest normal and palpation of chest normal Chest: Negative for tenderness Resp normal respiratory effort and clear to auscultation bilaterally Effort and Inspection: Negative for respiratory distress or pain with movement Auscultation: Negative for rhonchi, wheezes or diminished lung sounds Cardio regular rate, regular rhythm, S1 normal heart sound, S2 normal heart sound and no murmurs Peripheral Pulses: pulses 2+ throughout GI normal to inspection, nondistended, normoactive bowel sounds, soft to palpation, non-tender, non-distended and no masses Back/Spine no CVA tenderness and no thoracic nor lumbar tenderness Extremity normal to inspection General Extremety ED: Negative for edema General Extremity: Negative for edema Neuro CN's II-XII intact bilaterally, no sensory deficits noted and gait normal Neuro Narrative: Patient alert to person and place and year but not month. No facial droop noted. There is no focal weakness noted. No obvious ataxia. Sensations normal. Speech slightly thick and slurred but appropriate and unclear what her baseline is. Initial NIH stroke scale is a 1 due to some mild thick speech. Sensorium / Orientation: awake, alert, oriented to person, oriented to place and oriented to time Motor Exam: strength 5/5 throughout and strength abnormal Psych mental status grossly normal Skin no rashes or lesions noted and no wounds MDM MDM MDM Narrative Medical decision making narrative: Patient presents with concern for possible stroke. Last well-known time was around midnight last night. In the differential concern is for stroke. Metabolic abnormality also in the differential or infectious etiology. Patient not a thrombolytic candidate given timing of symptoms. Patient was seen by stroke neurologist who is in agreement. Initial CT scan of the brain without contrast obtained showed atrophy otherwise nothing acute. CTA of the head and neck obtained showed severe stenosis of the left internal carotid artery. CBC with differential count 6.5 with hemoglobin 15.2 and platelet count of 145. Chemistries unremarkable. Troponin less than 3. Urinalysis unremarkable. Chest x-ray 1 view interpreted by myself as no evidence of infiltrate or pneumothorax or acute disease process. EKG obtained arrival shows sinus rhythm with rate of 76 bpm with no acute ST segment changes. Lab Data Attestation: I reviewed the patient's lab results. Labs: Laboratory Results - last 24 hr 11/10/24 11/10/24 13:15 14:00 WBC 6.5 RBC 5.26 Hgb 15.2 H Hct 45.6 MCV 86.7 MCH 28.9 MCHC 33.3 RDW Std Deviation 46.1 H RDW Coeff of Joslyn 14.5 Plt Count 145 L MPV 11.1 Immature Gran % (Auto) 0.300 Neut % (Auto) 84.1 H Lymph % (Auto) 8.7 L Dukes % (Auto) 6.0 Eos % (Auto) 0.6 Baso % (Auto) 0.3 Absolute Neuts (auto) 5.4 Absolute Lymphs (auto) 0.56 L Nucleated RBC % 0 PT Cancelled INR Cancelled APTT Cancelled Sodium 139 Potassium 4.3 Chloride 106 Carbon Dioxide 26.0 Anion Gap 7 BUN 17 Creatinine 0.98 Estim Creat Clear Calc 39.29 Est GFR (MDRD) Af Amer 70 Est GFR (MDRD) Non-Af 58 L BUN/Creatinine Ratio 17.4 Glucose 109 H Calcium 9.2 Troponin I High Sens < 3 L Urine Color Yellow Urine Clarity Clear Urine pH 8.0 Ur Specific [place] 1.010 Urine Protein Negative Urine Glucose (UA) Normal Urine Ketones Negative Urine Occult Blood 50 H Urine Nitrite Negative Urine Bilirubin Negative Urine Urobilinogen Normal Ur Leukocyte Esterase Negative Radiography Diagnostic Testing: Clinical Impression(s) from Imaging Studies Brain CT 11/10/24 13:12 IMPRESSION: Chronic changes. No acute abnormality is seen. The results were communicated with Dr. Fitzpatrick the referring physician. Reading Location: [facility] Head/Neck CTA 11/10/24 13:13 IMPRESSION: RIGHT CAROTID: Unremarkable. LEFT CAROTID: Tight stenosis at the origin of left internal carotid artery. VERTEBRALS: Tiny left vertebral artery. INTRACRANIAL: No large vessel obstruction is seen. One or more dose reduction techniques were used (e.g., Automated exposure control, adjustment of the mA and/or kV according to patient size, use of iterative reconstruction technique). Reading Location: [facility] 1 view chest x-ray obtained interpreted by myself as no evidence of infiltrate or pneumothorax or acute disease process. Radiology in agreement. EKG Initial EKG: Attestation: I personally reviewed and interpreted this EKG as follows: Comments: Sinus rhythm with rate of 76 bpm with old inferior infarct Discharge Plan Dx/Rx/DC Orders Clinical Impression: Weakness, Brain TIA, Carotid artery stenosis Disposition Disposition: Acute Care Hospital [facility]
[2024-11-10 13:27] LABS: Absolute Lymphocyte Count 0.56 X10^3/uL (0.83-4.51); Absolute Neutrophil Count 5.4 X10^3/uL (2.0-7.7); Basophil# 0.02 X10^3/uL; Basophil% 0.3 % (0-1); Eosinophil# 0.04 X10^3/uL; Eosinophils% 0.6 % (0-5); Hematocrit 45.6 % (37-47); Hemoglobin 15.2 g/dL (12.0-15.0); Lymphocyte # 0.56 X10^3/ul (0.83-4.51); Lymphocyte % 8.7 % (19-41); Mean Corp Hgb Conc 33.3 g/dL (32-36); Mean Corpuscular Hgb 28.9 pg (27.0-32.0); Mean Corpuscular Volume 86.7 fL (81-99); Mean Platelet Vol. 11.1 fl (6.2-12.0); Monocyte# 0.39 X10^3/uL; NRBC Flagged by Analyzer 0 % (0-5); Neutrophil # 5.43 X10^3/uL (2.7-7.7); Neutrophil % 84.1 % (47-70); POSITIVE DIFFERENTIAL YES; Platelet Count 145 K/mm3 (150-450); RBC Distribution Width CV 14.5 % (11.6-14.6); RBC Distribution Width SD 46.1 fl (35.1-43.9); Red Blood Count 5.26 M/mm3 (4.2-5.4); White Blood Count 6.5 K/mm3 (4.4-11.0)
[2024-11-10 13:57] LABS: Anion Gap 7 (5-15); BUN 17 mg/dL (7-18); BUN/Creat Ratio 17.4 RATIO (10-20); Calcium,Total 9.2 mg/dL (8.5-10.1); Chloride 106 mmol/L (98-107); Creatinine, Serum 0.98 mg/dL (0.55-1.02); EST Glomerular Filtration Rate 58 mL/min (>60); Est Glom Filt Rate - Afr Amer 70 mL/min (>60); Estimated Creatinine Clearance 39.29 ml/min; Glucose 109 mg/dL (74-106); Potassium 4.3 mmol/L (3.5-5.1); Sodium Level 139 mmol/L (136-145); Troponin-I HS < 3 pg/mL (3.0-54.0)
--- NOTE | 2024-11-10 14:11 | ED.RN ---
PER DR. CHANG WITH [facility]- WE CAN ADMITED FOR TIA WORKUP OR DC HOME IF WORKUP IS NEGATIVE. FAMILY AGREES TO ADMISSION FOR FURTHER EVALUATION. DR. JC NOTIFIED. PER DR. JC WE CAN CHANGE NIHSS TO Q4H
[2024-11-10 14:14] LABS: Bacteria 0 SEEN /hpf (None Seen); Mucous, Urine 0 SEEN /hpf (<or=2+); White Blood Cells 0 SEEN /hpf (0-5)
[2024-11-10 14:18] LABS: Color, Urine Yellow (Yellow); Glucose, Dipstick Normal (Normal); Ketone-Dipstick Negative (Negative); Leukocyte Esterase-Dipstick Negative /ul (Negative); Nitrite-Dipstick Negative (Negative); Occult Blood-Urine 50 /ul (Negative); Protein-Dipstick Negative (Negative); Urine Bilirubin Dipstick Negative (Negative); Urine Clarity Clear (Clear); Urine Urobilinogen Normal (Normal)
--- NOTE | 2024-11-10 14:27 | PCM.HP.STD ---
HPI - General General Date of Admission: 11/10/24 Date of Service: 11/10/24 Chief Complaint: L sided weakness/L facial droop HPI Narrative MATTIE FOX, is a 84 F who presented to the emergency department at [facility] on 11/10/2024 with a chief complaint of left-sided facial droop and slurred speech with left-sided weakness. Last known normal was midnight last night. She got up this morning and was noted to have some dysarthria/slurred speech and some left facial droop. Her son came over and he noted some left-sided weakness. NIH at time of presentation was 1 and an age at the time my evaluation was 0. She has never had symptoms like this previously. She does have a history of hypertension hyperlipidemia and does take medication for memory loss. Family reports that she typically is oriented times self and place but time tends to be difficult for her. They do state that currently her memory is worse than her baseline. Her does report that they have both been ill with some upper respiratory type symptoms. His started a few days ago and her seem to start in the last 48 hours. She has had some cough and some nasal drainage but no fever or chills. Vital signs on presentation showed temperature of 98.9, heart rate 80, respiratory 18, initial blood pressure was 182/85 with a repeat of 153/67, oxygen saturation was 90% on room air. Oxygen saturation dropped to 89% on room air so she was placed on 2 L nasal cannula with improvement to 96% on 2 L. CBC was overtly unremarkable. She does have a erythrocytosis which appears to be chronic and stable. She has mild thrombocytopenia with a platelet count of 145,000. Differential does show a left shift. Coags were negative. Chemistry panel was unremarkable. Troponin was less than 3. Her UA is not consistent with infection. Chest x-ray was unremarkable. CT of the brain showed chronic changes with no acute abnormalities. CTA of the head and neck showed unremarkable right carotid artery and near occlusion at the origin of the left internal carotid artery due to calcific plaque formation. Vertebral arteries are tiny but antegrade with no LVO noted. COVID/flu/RSV was initially reported out as negative however since has popped positive for influenza A. Stroke team was called on arrival and the stroke neurologist evaluated the patient agreed with admission for stroke rule out. [facility] Medical History (Updated 11/10/24 @ 20:[address] Lennie Jameson, DO) Alzheimer's dementia Abdominal aortic aneurysm without rupture Tobacco abuse Aortic valve sclerosis Old myocardial infarction JL on CPAP PVD (peripheral vascular disease) Presence of stent in coronary artery (~12/18/03) Stenosis of infrarenal abdominal aorta due to atherosclerosis (~03/11/04) Diabetic peripheral neuropathy associated with type 2 diabetes mellitus Type 2 diabetes mellitus DDD (degenerative disc disease) Bilateral carotid artery disease GERD (gastroesophageal reflux disease) Essential hypertension Mixed hyperlipidemia Atherosclerotic heart disease of [place] coronary artery without angina pectoris Home Medications ?Medication ?Instructions ?Recorded ?Last Taken ?Type aspirin 81 mg chewable tablet 81 mg PO DAILY@0800 preventative 07/06/14 11/09/24 History atenolol 25 mg tablet 25 mg PO DAILY heart 07/06/14 11/09/24 History atorvastatin 80 mg tablet 80 mg PO QHS cholesterol 09/02/19 11/09/24 History gabapentin 300 mg capsule 300 mg PO TID neuropathy 09/18/22 11/09/24 History cholecalciferol (vitamin D3) 25 25 mcg PO BID vitamin 11/10/24 11/09/24 History mcg (1,000 unit) capsule donepezil 10 mg tablet 5 mg PO DAILY memory 11/10/24 11/09/24 History mirabegron 50 mg tablet,extended 50 mg PO DAILY 11/10/24 11/09/24 History release 24 hr paroxetine HCl 10 mg tablet 10 mg PO DAILY mood 11/10/24 Unknown History triamcinolone acetonide 55 mcg 2 spray intranasal DAILY PRN 11/10/24 Unknown History nasal spray aerosol (24 Hour Nasal congestion Allergy) Allergy/AdvReac Type Severity Reaction Status Date / Time hydrocodone Allergy Rash Verified 11/10/24 13:08 Penicillins (PCN) Allergy Other Verified 11/10/24 13:08 Sulfa (Sulfonamide Allergy Unknown Verified 11/10/24 13:08 Antibiotics) amoxicillin (From Augmentin) AdvReac Mild itching Verified 11/10/24 13:08 clavulanic acid (From AdvReac Mild itching Verified 11/10/24 13:08 Augmentin) acetaminophen (From Vicodin) AdvReac Other Verified 11/10/24 13:08 hydrocodone bitartrate (From AdvReac Other Verified 11/10/24 13:08 Vicodin) lovastatin (From Mevacor) AdvReac Other Verified 11/10/24 13:08 rosuvastatin calcium (From AdvReac Other Verified 11/10/24 13:08 Crestor) simvastatin (From Zocor) AdvReac Other Verified 11/10/24 13:08 Family History (Reviewed 06/05/23 @ 15:16 by Autumn Medina VICE PRESIDENT EDUCATION, VICE PRESIDENT EDUCATION-C) Father Myocardial infarction Heart disease CVA (cerebral vascular accident) Diabetes Brother CAD (coronary artery disease) Surgical History History of left breast biopsy Cataract extraction status of left eye History of surgery on wrist History of cystoscopy Presence of coronary angioplasty implant and graft (~12/18/03) Social History (Updated 11/10/24 @ 15:41 by Karissa Lopez) Smoking Status: Current every day smoker tobacco type: cigarettes alcohol intake: never substance use type: does not use caffeine: Yes Type: carbonated beverages Number of servings: 3 and tea Number of servings: 3 ROS Review of Systems ROS Unobtainable: other Details: Unable to obtain due to dementia Vital Signs Vital Signs Vital Signs: 11/10/24 13:08 11/10/24 13:16 11/10/24 13:30 Temperature 98.9 F Temperature Source Temporal Pulse Rate 80 80 Respiratory Rate 18 24 H Blood Pressure 182/85 H Blood Pressure Mean 117 Pulse Ox 98 98 89 Oxygen Delivery Method Room Air Room Air Room Air Oxygen Flow Rate (L/min) 11/10/24 13:46 Temperature Temperature Source Pulse Rate 85 Respiratory Rate 22 H Blood Pressure 153/67 H Blood Pressure Mean 95 Pulse Ox 96 Oxygen Delivery Method Nasal Cannula Oxygen Flow Rate (L/min) 2 Weight Weight: 70.4 kg Body Mass Index (BMI) 25.0 Physical Exam Const alert, no apparent distress, average body habitus and well nourished; Negative for healthy appearing Constitutional Narrative: Elderly, white female, sitting up in bed, appears comfortable, nontoxic HEENT normocephalic and head/scalp atraumatic HEENT Narrative: Mucous membranes are slightly dry, Mallampati 2, no thrush Eyes EOMs intact bilaterally and conjunctivae normal Eyes Narrative: No scleral icterus Neck supple Neck Narrative: Trachea midline, no thyroid enlargement Resp normal respiratory effort, no retractions, no use of accessory muscles and clear to auscultation bilaterally Auscultation: Negative for rales, rhonchi or wheezes Cardio regular rate, regular rhythm, S1 normal heart sound, S2 normal heart sound, no murmurs, no rub, no gallops and no clicks GI normal to inspection, nondistended, normoactive bowel sounds, soft to palpation and non-tender Extremity no clubbing, cyanosis or edema Extremity Narrative: Pedal and radial pulses are 2+ Neuro oriented x3, CN's II-XII intact bilaterally, moves all extremities and no focal motor deficits Neuro Narrative: Patient moves all 4 extremities symmetrically, does have somewhat difficulty following commands and maintaining but does initiate all commands Speech: speech normal Psych affect normal Psych Narrative: Pleasantly confused Results Lab / Micro Data 11/10/24 13:15 11/10/24 13:15 Labs: Laboratory Results - last 24 hr 11/10/24 13:15: WBC 6.5, RBC 5.26, Hgb 15.2 H, Hct 45.6, MCV 86.7, MCH 28.9, MCHC 33.3, RDW Std Deviation 46.1 H, RDW Coeff of Joslyn 14.5, Plt Count 145 L, MPV 11.1, Immature Gran % (Auto) 0.300, Neut % (Auto) 84.1 H, Lymph % (Auto) 8.7 L, [place] % (Auto) 6.0, Eos % (Auto) 0.6, Baso % (Auto) 0.3, Absolute Neuts (auto) 5.4, Absolute Lymphs (auto) 0.56 L, Nucleated RBC % 0, PT Cancelled, INR Cancelled, APTT Cancelled, Sodium 139, Potassium 4.3, Chloride 106, Carbon Dioxide 26.0, Anion Gap 7, BUN 17, Creatinine 0.98, Estim Creat Clear Calc 39.29, Est GFR (MDRD) Af Amer 70, Est GFR (MDRD) Non-Af 58 L, BUN/Creatinine Ratio 17.4, Glucose 109 H, Calcium 9.2, Troponin I High Sens < 3 L 11/10/24 14:00: Urine Color Yellow, Urine Clarity Clear, Urine pH 8.0, Ur Specific [place] 1.010, Urine Protein Negative, Urine Glucose (UA) Normal, Urine Ketones Negative, Urine Occult Blood 50 H, Urine Nitrite Negative, Urine Bilirubin Negative, Urine Urobilinogen Normal, Ur Leukocyte Esterase Negative Imaging Radiology Impression Brain CT 11/10/24 13:12 IMPRESSION: Chronic changes. No acute abnormality is seen. The results were communicated with Dr. Fitzpatrick the referring physician. Reading Location: [place] [address] Chest X-Ray 11/10/24 13:12 IMPRESSION: Generalized osteopenia is present. No acute osseous changes seen. Lungs appear clear of acute disease. No pleural effusion or pneumothorax is noted. The cardiomediastinal silhouette is within the normal range for age. No evidence of acute cardiopulmonary disease. Reading Location: [address] Head/Neck CTA 11/10/24 13:13 IMPRESSION: RIGHT CAROTID: Unremarkable. LEFT CAROTID: Tight stenosis at the origin of left internal carotid artery. VERTEBRALS: Tiny left vertebral artery. INTRACRANIAL: No large vessel obstruction is seen. One or more dose reduction techniques were used (e.g., Automated exposure control, adjustment of the mA and/or kV according to patient size, use of iterative reconstruction technique). Reading Location: [place] [address] Assessment & Plan Assessment/Plan (1) Carotid artery stenosis: (2) Hypoxia: (3) Facial droop: (4) Dysarthria: (5) Influenza A H1N1 infection: (6) Weakness: PLAN: Plan Left facial droop/left-sided weakness/slurred speech -Initial NIH was 1 and now NIH is of 0 since -Admit with stroke protocol -Check lipids n -check hemoglobin A1c -Continue home aspirin -Plavix loaded 300 mg and will continue 75 mg daily -Continue high-dose intensity statin which she is already on -Check echocardiogram -MRI of the brain -Neurology consultation Acute hypoxia secondary to influenza A -Symptoms present for about 48 hours -Start Tamiflu 75 mg p.o. twice daily -Aerosol scheduled and as needed -Incentive spirometry and Pep therapy -Encourage out of bed and mobility to avoid bacterial pneumonia Toxic/metabolic encephalopathy -Suspect secondary to the above -At baseline patient is alert and oriented to self and place but not time -CT of the brain with no acute findings -Currently oriented to self only Severe left-sided carotid artery stenosis -If stroke will need vascular surgery consulted while hospitalized -If not may be able to pursue as an outpatient next-continue high intensity of statin recs-continue aspirin -Plavix initiated as noted above Chronic erythrocytosis -Likely related to tobacco abuse No further workup at this time CAD/essential hypertension/hyperlipidemia -Cardiac stent placed in 2003 -Continue statin -Hold home antihypertensives for now and allow for permissive hypertension secondary to the above History of DM-2 -Patient is diet controlled at this time -Hemoglobin A1c is pending Neuropathy -Continue home gabapentin Peripheral vascular disease -continue aspirin and statin -add Plavix as noted above Tobacco abuse -patient is still smoking -nicotine patch 21 mcg -Recommend cessation DVT prophylaxis -Subcu Lovenox CODE STATUS -Full code is verified with family prior to admission Charges/Coding Visit Charges Inpatient E&M: 64914 Init Hosp L2
[2024-11-10 14:32] LABS: Red Blood Cells-Urine 0-5 SEEN /hpf (0-5)
[2024-11-10 14:33] LABS: Squamous Epithelial Cells - UA 0-5 SEEN /hpf (5-10)
--- NOTE | 2024-11-10 14:36 | ECHOCS_ITS ---
Reason For Study Reason For Study: TIA/CVA Procedure This was a 2D Doppler, Color Flow transthoracic echocardiogram. The study was technically difficult. Contrast injection was performed. Exam performed portable in patient room. Left Ventricle Normal LV size. Left ventricular systolic function is hyperdynamic. The estimated ejection fraction is >75 %. No evidence for diastolic dysfunction. No regional wall motion abnormalities noted. Right Ventricle Normal RV size. Normal systolic function. Atria The left and right atria are normal. No doppler evidence for ASD. Mitral Valve There is no mitral valve stenosis. No mitral valve insufficiency. Tricuspid Valve There is no tricuspid stenosis. No tricuspid valve insufficiency. Aortic Valve Trisinus/trileaflet aortic valve. Mild diffuse aortic valve thickening. Mild aortic stenosis. No aortic valve insufficiency. Pulmonic Valve There is no pulmonic valvular stenosis. No pulmonic valve insufficiency. Great Vessels Normal aortic root. Pericardium/Pleural No pericardial effusion. Medication Diluted definity 2.5ml given slow IV push to enhance endocardial definition. MMode/2D Measurements & Calculations LVIDd: 4.0 cm IVSd: 1.1 cm LVOT diam: 2.0 cm LVIDs: 1.8 cm LVPWd: 1.1 cm RVDd: 3.3 cm FS: 55.1 % LVOT area: 3.0 cm2 Ao root diam: 3.5 cm LAV(MOD-bp): 22.6 ml LVAd ap4: 26.0 cm2 LAV(MOD-bp) Indexed: 12.6 ml/m2 LVLd ap4: 8.0 cm LAV(MOD-sp2): 27.9 ml EDV(MOD-sp4): 67.8 ml LAV(MOD-sp4): 18.2 ml EDV(sp4-el): 71.9 ml LVAs ap4: 8.4 cm2 LVLs ap4: 5.3 cm ESV(MOD-sp4): 10.7 ml ESV(sp4-el): 11.3 ml EF(MOD-sp4): 84.2 % EF(sp4-el): 84.3 % SV(MOD-sp4): 57.1 ml SV(sp4-el): 60.6 ml LA A4 area: 10.3 cm2 SI(MOD-sp4): 31.8 ml/m2 LA dimension(2D): 3.9 cm RA A4 area: 9.7 cm2 Time Measurements MV dec time: 0.39 sec Doppler Measurements & Calculations MV E max efra: 80.8 cm/sec Lat Peak E' Efra: 8.3 cm/sec Med Peak E' Efra: 7.4 cm/sec MV A max efra: 121.8 cm/sec E/E' lat: 9.8 E/E' med: 10.9 MV E/A: 0.66 MV V2 max: 118.9 cm/sec MV P1/2t max efra: 93.2 cm/sec Ao V2 max: 303.4 cm/sec MV max P.7 mmHg MV P1/2t: 127.1 msec Ao max P.8 mmHg MV V2 mean: 61.2 cm/sec MV dec slope: 214.8 cm/sec2 Ao V2 mean: 197.4 cm/sec MV mean P.8 mmHg MVA(P1/2t): 1.7 cm2 Ao mean P.2 mmHg MV V2 VTI: 38.1 cm Ao V2 VTI: 56.1 cm MVA(VTI): 2.1 cm2 AV (velocity ratio): 0.48 MAURISIO(I,D): 1.4 cm2 MAURISIO(V,D): 1.2 cm2 LV V1 max: 119.0 cm/sec SV(LVOT): 80.0 ml LV V1 max P.7 mmHg LV V1 mean P.2 mmHg LV V1 mean: 83.2 cm/sec LV V1 VTI: 26.7 cm ECHO/Echo Complete W/ Contrast Interpretation Summary Left ventricular systolic function is hyperdynamic. The estimated ejection fraction is >75 %. No evidence for diastolic dysfunction. Mild aortic stenosis. Ordering Physician: Lennie Jameson Performed By: Lino Marquez RCS
--- NOTE | 2024-11-10 14:36 | MRI_ITS ---
PROCEDURE: MRI BRAIN WITHOUT CONTRAST REASON FOR EXAM: Dementia. Stroke evaluation. TECHNIQUE: Multiplanar, multisequence MRI of the brain without intravenous gadolinium-based contrast. COMPARISON: CT brain and CTA brain/neck from 11/10/2024. FINDINGS: There is prominence of the ventricles and sulci indicative of atrophy. There are numerous foci of hyperintense T2/FLAIR signal in the periventricular and deep white matter likely relating to chronic small vessel ischemic disease. Along the extra-axial space, there is a dural-based lesion involving the left frontal region laterally measuring approximately 15.6 x 8.4 x 16.0 mm in the AP, transverse, and CC dimensions respectively likely relating to a meningioma. No midline shift or mass effect is present. No diffusion restriction is identified on diffusion-weighted imaging to suggest acute/subacute ischemic changes. No acute intracranial hemorrhage or acute territorial infarction is seen. Corpus callosum, optic chiasm, suprasellar cistern, and cerebellar tonsils are within normal range. Major vascular flow voids are present. Bilateral orbits are intact. Nasal septum is deviated to the left. There is mild mucosal thickening of the right ethmoid sinus. MRI/Brain without Contrast IMPRESSION: 1. No acute intracranial process. 2. Extra-axial dural-based lesion involving the left frontal region laterally m easuring 16 mm likely relates to a meningioma. However, recommend further evaluation with MRI of the brain with IV contrast. 3. Chronic small vessel ischemic disease. 4. Atrophy. Reading Location: [facility]
[2024-11-10 14:57] LABS: Prothrombin Time (Protime)PT. 13.7 SECONDS (11.7-14.9)
--- NOTE | 2024-11-10 15:00 | NURSING ---
DR JC NOTIFIED OF PT FLU A+.
[2024-11-10 15:02] LABS: Partial Thromboplast Time 32.7 Seconds (24.1-36.2)
[2024-11-10 15:22] LABS: Hemoglobin A1c 6.2 % (3.8-5.6)
--- NOTE | 2024-11-10 16:31 | CHAPLAIN ---
Type of Pastoral Visit ___ Initial Visit ___ Follow-up Visit ___ On-call Visit ___ General Patient Visit ___ Spiritual Assessment ___ Family Conference ___ Bereavement _x__ Rapid Response ___ Code Blue ___ Other (describe below) Pastoral Care Referral From ___ Patient ___ Family ___ Nurse ___ Physician ___ Long Chain Beamer ___ Popcorn Attendant _x__ Other (describe below) Sacrament/Intervention ___ Active listening ___ Anointing ___ Yazdanism ___ Bereavement ___ Communion ___ Danni exploration ___ ___ Life review _x__ Prayer ___ Reconciliation ___ Sacrament of Sick _x__ Supportive presence ___ Wedding ___ Other (describe below) Pastoral Comments responded to stroke alert in ED; found spouse and son in the room as patient was in CT; offered support; immediately the son asked for prayer and spouse affirmed; spouse gives some background health information; offer of presence and beverages; SW also was present for support
[2024-11-10] MEDS: Clopidogrel Bisulfate 300 MG Tablet PO (16:50)
[2024-11-10] MEDS: guaiFENesin 10 ML UDC (200MG/10ML) 20 ML PO (16:54)
[2024-11-10] MEDS: Acetaminophen 325 MG Tablet 650 MG PO (16:54)
--- NOTE | 2024-11-10 16:57 | CM.ED ---
Social Work Reason for visit: Stroke alert SW responded to stroke alert, patient was out of the room at the time. and son were present. Son was visiting from out of state, stated he was glad he was close. Emotional support provided. No further needs identified at this time. Dacia Zamorano, AUTOMOBILE CARPETS MOLDER, TIMEKEEPER
[2024-11-10] MEDS: Gabapentin 300 MG Capsule PO ×2 (17:04→23:05)
[2024-11-10] MEDS: Oseltamivir Phosphate 75 MG Capsule PO (20:48)
[2024-11-10] MEDS: Atorvastatin Calcium 80 MG Tablet PO (23:04)
[2024-11-10] MEDS: Cholecalciferol (VIT D3) 25 MCG TABLET (1,000 UNITS) PO (23:04)
[2024-11-10] MEDS: 0.9% Saline Lock 10 ML Syringe IV (23:05)
[2024-11-11 03:20] VITALS: BP 143/75; PULSE 72; RESP 18; TEMP 38.1; O2SAT 96
[2024-11-11] MEDS: guaiFENesin 10 ML UDC (200MG/10ML) 20 ML PO (03:58)
[2024-11-11] MEDS: Acetaminophen 325 MG Tablet 650 MG PO (03:59)
[2024-11-11] MEDS: 0.9% Saline Lock 10 ML Syringe IV (03:59)
[2024-11-11] MEDS: Gabapentin 300 MG Capsule PO ×2 (05:54→13:32)
[2024-11-11 06:46] LABS: Absolute Lymphocyte Count 1.18 X10^3/uL (0.83-4.51); Absolute Neutrophil Count 4.7 X10^3/uL (2.0-7.7); Basophil# 0.02 X10^3/uL; Basophil% 0.3 % (0-1); Eosinophil# 0.04 X10^3/uL; Eosinophils% 0.6 % (0-5); Hematocrit 44.7 % (37-47); Hemoglobin 14.9 g/dL (12.0-15.0); Lymphocyte # 1.18 X10^3/ul (0.83-4.51); Mean Corp Hgb Conc 33.3 g/dL (32-36); Mean Corpuscular Hgb 28.7 pg (27.0-32.0); Mean Platelet Vol. 11.2 fl (6.2-12.0); Monocyte# 0.61 X10^3/uL; Monocyte% 9.3 % (0-10); NRBC Flagged by Analyzer 0 % (0-5); Neutrophil # 4.68 X10^3/uL (2.7-7.7); Neutrophil % 71.3 % (47-70); Platelet Count 122 K/mm3 (150-450); RBC Distribution Width CV 14.6 % (11.6-14.6); RBC Distribution Width SD 45.9 fl (35.1-43.9); White Blood Count 6.6 K/mm3 (4.4-11.0)
[2024-11-11 07:04] LABS: ALB/GLOB Ratio 0.9 RATIO (0.9-2.4); AST(SGOT) 21 U/L (15-37); Alanine Aminotransfer ALT/SGPT 22 U/L (13-56); Albumin, Serum 3.1 g/dL (3.2-5.0); Alkaline Phosphatase 70 U/L (45-117); Anion Gap 9 (5-15); BUN 16 mg/dL (7-18); BUN/Creat Ratio 18.2 RATIO (10-20); Chloride 102 mmol/L (98-107); Cholesterol 109 mg/dL (200); Creatinine, Serum 0.88 mg/dL (0.55-1.02); EST Glomerular Filtration Rate 65 mL/min (>60); Est Glom Filt Rate - Afr Amer 78 mL/min (>60); Estimated Creatinine Clearance 45.45 ml/min; Globulin 3.4 g/dL (2.2-4.2); Glucose 89 mg/dL (74-106); High Density Lipoprotein 45 mg/dL; Magnesium 2.2 mg/dL (1.6-2.6); Phosphorus 3.4 mg/dL (2.5-4.9); Potassium 3.6 mmol/L (3.5-5.1); Protein, Total 6.5 g/dL (6.4-8.2); Sodium Level 135 mmol/L (136-145); Triglycerides 105 mg/dL; Very Low Density Lipoprotein 21 mg/dL (5-40)
[2024-11-11 07:16] VITALS: PULSE 78; RESP 16; O2SAT 97
[2024-11-11] MEDS: Ipratropium/Albuterol Sulfate 3 ML AMPUL.NEB INHALATION ×2 (07:16→12:57)
[2024-11-11 07:51] VITALS: BP 125/60; PULSE 65; RESP 14; TEMP 36.8; O2SAT 95
[2024-11-11] MEDS: Aspirin 81 MG TAB.CHEW PO (09:34)
[2024-11-11] MEDS: Clopidogrel Bisulfate 75 MG Tablet PO (09:35)
[2024-11-11] MEDS: Vibegron 75 MG TABLET PO (09:35)
[2024-11-11] MEDS: PARoxetine 10 MG Tablet PO (09:35)
[2024-11-11] MEDS: Oseltamivir Phosphate 30 MG Capsule PO (09:35)
[2024-11-11] MEDS: Cholecalciferol (VIT D3) 25 MCG TABLET (1,000 UNITS) PO (09:35)
[2024-11-11] MEDS: Donepezil HCl 5 MG Tablet PO (10:27)
[2024-11-11] MEDS: Enoxaparin 40 MG/0.4 ML Syringe SC (10:27)
[2024-11-11 11:14] VITALS: BP 99/82; PULSE 71; RESP 14; TEMP 37.1; O2SAT 91
[2024-11-11 12:57] VITALS: PULSE 79; RESP 20
--- NOTE | 2024-11-11 12:59 | NEURO.CONS ---
Assessment and Plan: Neuro Assessment/Plan MATTIE FOX is a 84 F with a past medical history of smoking, being evaluated by Teleneurology for left sided weakness, facial droop and slurred speech lasted for roughly half an hour. No residual symptoms . MRI brain showed left frontal meningioma which is incidental and non contributory to the current symptoms. CT angio showed left ICA tight occlusion. Recommend US carotid for better quantification of level of narrowing and follow up with vascular surgery in 6 weeks. Appear to be asymptomatic as symptoms were noted to be over left side of body as per report. Continue aspirin ,Lipitor. LDL goal less than 70 , HbA1c goal less than 6.5 , BP goal less than 130/80. Smoking cessation encouraged.Echo reviewed. F/P with stroke clinic 6 weeks Diagnosis: TIA I personally attended this patient and spent a total time of 60 minutes evaluating this patient including clinical assessment, review of chart, medical history imaging, and determining appropriate treatment and workup. HPI Consult Data Date of Consult: 11/11/24 HPI Narrative HPI Narrative: As per HPI: MATTIE FOX, is a 84 F who presented to the emergency department at [facility] on 11/10/2024 with a chief complaint of left-sided facial droop and slurred speech with left-sided weakness. Last known normal was midnight last night. She got up this morning and was noted to have some dysarthria/slurred speech and some left facial droop. Her son came over and he noted some left-sided weakness. NIH at time of presentation was 1 and an age at the time my evaluation was 0. She has never had symptoms like this previously. She does have a history of hypertension hyperlipidemia and does take medication for memory loss. Family reports that she typically is oriented times self and place but time tends to be difficult for her. They do state that currently her memory is worse than her baseline. Her does report that they have both been ill with some upper respiratory type symptoms. His started a few days ago and her seem to start in the last 48 hours. She has had some cough and some nasal drainage but no fever or chills. Vital signs on presentation showed temperature of 98.9, heart rate 80, respiratory 18, initial blood pressure was 182/85 with a repeat of 153/67, oxygen saturation was 90% on room air. Oxygen saturation dropped to 89% on room air so she was placed on 2 L nasal cannula with improvement to 96% on 2 L. CBC was overtly unremarkable. She does have a erythrocytosis which appears to be chronic and stable. She has mild thrombocytopenia with a platelet count of 145,000. Differential does show a left shift. Coags were negative. Chemistry panel was unremarkable. Troponin was less than 3. Her UA is not consistent with infection. Chest x-ray was unremarkable. CT of the brain showed chronic changes with no acute abnormalities. CTA of the head and neck showed unremarkable right carotid artery and near occlusion at the origin of the left internal carotid artery due to calcific plaque formation. Vertebral arteries are tiny but antegrade with no LVO noted. COVID/flu/RSV was initially reported out as negative however since has popped positive for influenza A. Stroke team was called on arrival and the stroke neurologist evaluated the patient agreed with admission for stroke rule out. On my evaluation , patient was alert and oriented and provided most of the history. No residual symptoms. Found to be positive for influenza A. [facility] Medical History (Updated 11/10/24 @ 20:[address] Lennie Jameson, DO) Alzheimer's dementia Abdominal aortic aneurysm without rupture Tobacco abuse Aortic valve sclerosis Old myocardial infarction JL on CPAP PVD (peripheral vascular disease) Presence of stent in coronary artery (~12/18/03) Stenosis of infrarenal abdominal aorta due to atherosclerosis (~03/11/04) Diabetic peripheral neuropathy associated with type 2 diabetes mellitus Type 2 diabetes mellitus DDD (degenerative disc disease) Bilateral carotid artery disease GERD (gastroesophageal reflux disease) Essential hypertension Mixed hyperlipidemia Atherosclerotic heart disease of craig coronary artery without angina pectoris Home Medications ?Medication ?Instructions ?Recorded ?Last Taken ?Type aspirin 81 mg chewable tablet 81 mg PO DAILY@0800 preventative 07/06/14 11/09/24 History atenolol 25 mg tablet 25 mg PO DAILY heart 07/06/14 11/09/24 History atorvastatin 80 mg tablet 80 mg PO QHS cholesterol 09/02/19 11/09/24 History gabapentin 300 mg capsule 300 mg PO TID neuropathy 09/18/22 11/09/24 History cholecalciferol (vitamin D3) 25 25 mcg PO BID vitamin 11/10/24 11/09/24 History mcg (1,000 unit) capsule donepezil 10 mg tablet 5 mg PO DAILY memory 11/10/24 11/09/24 History mirabegron 50 mg tablet,extended 50 mg PO DAILY 11/10/24 11/09/24 History release 24 hr paroxetine HCl 10 mg tablet 10 mg PO DAILY mood 11/10/24 Unknown History triamcinolone acetonide 55 mcg 2 spray intranasal DAILY PRN 11/10/24 Unknown History nasal spray aerosol (24 Hour Nasal congestion Allergy) Allergy/AdvReac Type Severity Reaction Status Date / Time hydrocodone Allergy Rash Verified 11/10/24 13:08 Penicillins (PCN) Allergy Other Verified 11/10/24 13:08 Sulfa (Sulfonamide Allergy Unknown Verified 11/10/24 13:08 Antibiotics) amoxicillin (From Augmentin) AdvReac Mild itching Verified 11/10/24 13:08 clavulanic acid (From AdvReac Mild itching Verified 11/10/24 13:08 Augmentin) acetaminophen (From Vicodin) AdvReac Other Verified 11/10/24 13:08 hydrocodone bitartrate (From AdvReac Other Verified 11/10/24 13:08 Vicodin) lovastatin (From Mevacor) AdvReac Other Verified 11/10/24 13:08 rosuvastatin calcium (From AdvReac Other Verified 11/10/24 13:08 Crestor) simvastatin (From Zocor) AdvReac Other Verified 11/10/24 13:08 Family History Father Myocardial infarction Heart disease CVA (cerebral vascular accident) Diabetes Brother CAD (coronary artery disease) Surgical History History of left breast biopsy Cataract extraction status of left eye History of surgery on wrist History of cystoscopy Presence of coronary angioplasty implant and graft (~12/18/03) Social History (Updated 11/10/24 @ 15:41 by Karissa Lopez) Smoking Status: Current every day smoker tobacco type: cigarettes alcohol intake: never substance use type: does not use caffeine: Yes Type: carbonated beverages Number of servings: 3 and tea Number of servings: 3 Vital Signs Vital Signs Vital Signs: 11/10/24 13:08 11/10/24 13:16 11/10/24 13:30 Temperature 98.9 F Temperature Source Temporal Pulse Rate 80 80 Respiratory Rate 18 24 H Respiratory Effort Respiratory Depth Respiratory Pattern Blood Pressure 182/85 H Blood Pressure Mean 117 Blood Pressure Source Blood Pressure Position Blood Pressure Location Pulse Ox 98 98 89 Oxygen Delivery Method Room Air Room Air Room Air Oxygen Flow Rate (L/min) 11/10/24 13:46 11/10/24 14:35 11/10/24 15:37 Temperature 98.4 F 100.7 F H Temperature Source Oral Pulse Rate 85 75 71 Respiratory Rate 22 H 25 H 16 Respiratory Effort Respiratory Depth Respiratory Pattern Blood Pressure 153/67 H 149/73 H 151/69 H Blood Pressure Mean 95 98 96 Blood Pressure Source Monitor Blood Pressure Position Semi-Fowlers Blood Pressure Location Left Arm Pulse Ox 96 97 96 Oxygen Delivery Method Nasal Cannula Nasal Cannula Oxygen Flow Rate (L/min) 2 2 11/10/24 15:45 11/10/24 15:50 11/10/24 19:02 Temperature 98.4 F Temperature Source Temporal Pulse Rate 71 Respiratory Rate 14 Respiratory Effort Normal Non-Labored Respiratory Depth Normal Respiratory Pattern Normal Blood Pressure 144/68 H Blood Pressure Mean 93 Blood Pressure Source Monitor Blood Pressure Position Semi-Fowlers Blood Pressure Location Left Arm Pulse Ox 96 96 Oxygen Delivery Method Nasal Cannula Nasal Cannula Nasal Cannula Oxygen Flow Rate (L/min) 2 2 2 11/10/24 20:22 11/10/24 20:40 11/10/24 20:40 Temperature 99.0 F 99.0 F Temperature Source Oral Oral Pulse Rate 70 70 Respiratory Rate 16 16 Respiratory Effort Respiratory Depth Respiratory Pattern Blood Pressure 124/64 H 124/64 H Blood Pressure Mean 84 84 Blood Pressure Source Monitor Blood Pressure Position Semi-Fowlers Blood Pressure Location Right Arm Pulse Ox 95 94 94 Oxygen Delivery Method Nasal Cannula Nasal Cannula Nasal Cannula Oxygen Flow Rate (L/min) 2 2 2 11/10/24 21:11 11/10/24 23:15 11/10/24 23:15 Temperature 98.2 F 98.2 F Temperature Source Oral Oral Pulse Rate 65 65 Respiratory Rate 16 16 Respiratory Effort Normal Non-Labored Respiratory Depth Normal Respiratory Pattern Normal Blood Pressure 139/67 H 139/67 H Blood Pressure Mean 91 91 Blood Pressure Source Monitor Blood Pressure Position Semi-Fowlers Blood Pressure Location Right Arm Pulse Ox 95 95 Oxygen Delivery Method Nasal Cannula Nasal Cannula Nasal Cannula Oxygen Flow Rate (L/min) 2 2 2 11/11/24 03:20 11/11/24 03:20 11/11/24 04:23 Temperature 100.5 F H 100.5 F H Temperature Source Oral Oral Pulse Rate 72 72 Respiratory Rate 18 18 Respiratory Effort Normal Non-Labored Respiratory Depth Normal Respiratory Pattern Normal Blood Pressure 143/75 H 143/75 H Blood Pressure Mean 97 97 Blood Pressure Source Monitor Blood Pressure Position Semi-Fowlers Blood Pressure Location Left Arm Pulse Ox 96 96 Oxygen Delivery Method Nasal Cannula Nasal Cannula Nasal Cannula Oxygen Flow Rate (L/min) 2 2 2 11/11/24 07:16 11/11/24 07:16 11/11/24 07:51 Temperature 98.2 F Temperature Source Oral Pulse Rate 78 65 Respiratory Rate 16 14 Respiratory Effort Respiratory Depth Respiratory Pattern Normal Blood Pressure 125/60 H Blood Pressure Mean 81 Blood Pressure Source Blood Pressure Position Blood Pressure Location Pulse Ox 97 95 Oxygen Delivery Method Nasal Cannula Room Air Oxygen Flow Rate (L/min) 2 11/11/24 07:54 11/11/24 11:14 Temperature 98.8 F Temperature Source Oral Pulse Rate 71 Respiratory Rate 14 Respiratory Effort Normal Non-Labored Respiratory Depth Normal Respiratory Pattern Normal Blood Pressure 99/82 H Blood Pressure Mean 87 Blood Pressure Source Monitor Blood Pressure Position Semi-Fowlers Blood Pressure Location Right Arm Pulse Ox 91 Oxygen Delivery Method Room Air Room Air Oxygen Flow Rate (L/min) Weight Weight: 68.2 kg Body Mass Index (BMI) 23.5 EEG Results Procedure Details EEG Procedure Details: MATTIE FOX is a 84 year old F with a past medical history of , who presents for evaluation of Electroencephalogram on DATE at TIME NIHSS NIHSS Nursing Documentation NIHSS Nursing Documentation: NIHSS: Ischemic Stroke/TIA Start: 11/10/24 15:20 Text: For PCU Patients: NIH and Neuro Check every 4 Status: Active hours, PRN and with change in RN caregiver. Freq: [id number] Protocol: Activity Type Activity Date Activity User E-sign Co-sign Detail Recorded Client Recorded Date Recorded By Document 11/11/24 11:20 DS [id number] 11/11/24 11:20 DS 11/11/24 11:20 NIH Stroke Scale [NIHSS] A score of 0 is normal or asymptomatic . Total possible score is 42. Inpatient: RN or Physician to activate a stroke alert for onset of new stroke symptoms or with NIHSS increase >/= 3 points. Following change in neurological status, NIHSS will be performed per physician order or more frequently PRN. -1a. Level of Consciousness Alert; keenly responsive -1b. LOC Questions Answers BOTH questions correctly. -1c. LOC Commands Performs both tasks correctly . -2. Best Gaze Normal -3. Visual No visual loss -4. Facial Palsy Normal symmetrical movements -5a. Left Arm No drift; arm holds 90 (or 45 ) degrees for full 10 seconds -5b. Right Arm No drift; arm holds 90 (or 45 ) degrees for full 10 seconds -6a. Left Leg No drift; leg holds 30-degree position for full 5 seconds -6b. Right Leg No drift; leg holds 30-degree position for full 5 seconds -7. Limb Ataxia Absent -8. Sensory Normal; no sensory loss -9. Best Language No aphasia; normal -10. Dysarthria Mild-to- moderate dysarthria; -11. Extinction and Inattention No abnormality -Total 1 Query Text:A score of 0 is normal or asymptomatic. Total possible score is 42 . ED: Notify Physician for NIHSS increase by > / = 3 points. Inpatient: RN or Physician to activate a stroke alert for NIHSS increase of > / = 3 points. Coma Scale [Assess] -Eye Opening Spontaneous -Motor Obeys Commands -Verbal Oriented [Total] -Coma Scale Total 15 Physical Exam Neuro Neuro Narrative: -? General: Laying comfortably in bed; in no acute distress. -? HENT: Normal oropharynx and mucosa. Normal external appearance of ears and nose. Exophthalmos. -? Neck: Supple, no pain or tenderness -? CV:? No peripheral edema. -? Pulmonary:? Normal respiratory effort. -? Ext: No cyanosis, edema, or deformity -? Skin: No rash. Normal palpation of skin.? -? Musculoskeletal: full range of motion; no joint tenderness. Normal digits and nails by inspection. No clubbing. -? NEURO: -? Mental Status: The patient was alert and oriented to time, place, and person. Normal recent/remote memory, concentration, and general fund of knowledge. -? Language: speech is fluent Naming, repetition, fluency, and comprehension intact. -? Cranial Nerves: EOMI, visual petersen full, no facial asymmetry, facial sensation intact, hearing intact, tongue midline, no evidence of atrophy or fibrillations. As performed by the nurse. Sternocleidomastoid and trapezius were equally strong. Soft palate raises equally, no uvular deviations -? Motor: normal bulk, tone, and strength throughout. No pronator drift or satelliting. Upper and lower extremities equal bilaterally. : -? Tone: is normal and bulk is normal -? Sensation- Intact to light touch bilaterally -? Coordination: No dysmetria on [id number] -? Gait- deferred Lab / Micro Data 11/11/24 05:10 11/11/24 05:10 Labs: Laboratory Results - last 24 hr 11/10/24 13:13: Hemoglobin A1c 6.2 H 11/10/24 13:15: WBC 6.5, RBC 5.26, Hgb 15.2 H, Hct 45.6, MCV 86.7, MCH 28.9, MCHC 33.3, RDW Std Deviation 46.1 H, RDW Coeff of Joslyn 14.5, Plt Count 145 L, MPV 11.1, Immature Gran % (Auto) 0.300, Neut % (Auto) 84.1 H, Lymph % (Auto) 8.7 L, [place] % (Auto) 6.0, Eos % (Auto) 0.6, Baso % (Auto) 0.3, Absolute Neuts (auto) 5.4, Absolute Lymphs (auto) 0.56 L, Nucleated RBC % 0, PT Cancelled, INR Cancelled, APTT Cancelled, Sodium 139, Potassium 4.3, Chloride 106, Carbon Dioxide 26.0, Anion Gap 7, BUN 17, Creatinine 0.98, Estim Creat Clear Calc 39.29, Est GFR (MDRD) Af Amer 70, Est GFR (MDRD) Non-Af 58 L, BUN/Creatinine Ratio 17.4, Glucose 109 H, Calcium 9.2, Troponin I High Sens < 3 L 11/10/24 14:00: PT 13.7, INR 1.0, APTT 32.7, Urine Color Yellow, Urine Clarity Clear, Urine pH 8.0, Ur Specific [place] 1.010, Urine Protein Negative, Urine Glucose (UA) Normal, Urine Ketones Negative, Urine Occult Blood 50 H, Urine Nitrite Negative, Urine Bilirubin Negative, Urine Urobilinogen Normal, Ur Leukocyte Esterase Negative, Urine RBC 0-5 SEEN, Urine WBC 0 SEEN, Ur Squamous Epith Cells 0-5 SEEN, Urine Bacteria 0 SEEN, Urine Mucus 0 SEEN 11/11/24 05:10: WBC 6.6, RBC 5.20, Hgb 14.9, Hct 44.7, MCV 86.0, MCH 28.7, MCHC 33.3, RDW Std Deviation 45.9 H, RDW Coeff of Joslyn 14.6, Plt Count 122 L, MPV 11.2, Immature Gran % (Auto) 0.500, Neut % (Auto) 71.3 H, Lymph % (Auto) 18.0 L, [place] % (Auto) 9.3, Eos % (Auto) 0.6, Baso % (Auto) 0.3, Absolute Neuts (auto) 4.7, Absolute Lymphs (auto) 1.18, Nucleated RBC % 0, Sodium 135 L, Potassium 3.6, Chloride 102, Carbon Dioxide 24.0, Anion Gap 9, BUN 16, Creatinine 0.88, Estim Creat Clear Calc 45.45, Est GFR (MDRD) Af Amer 78, Est GFR (MDRD) Non-Af 65, BUN/Creatinine Ratio 18.2, Glucose 89, Calcium 9.0, Phosphorus 3.4, Magnesium 2.2, Total Bilirubin 0.80, AST 21, ALT 22, Alkaline Phosphatase 70, Total Protein 6.5, Albumin 3.1 L, Globulin 3.4, Albumin/Globulin Ratio 0.9, Triglycerides 105, Cholesterol 109, LDL Cholesterol 43, VLDL Cholesterol 21, HDL Cholesterol 45 Micro: Microbiology 11/10/24 15:50 Mucosa - Nasopharyngeal Respiratory Panel (PCR) - Final 11/10/24 14:00 Mucosa - Nose SARS-CoV-2, Influenza & RSV (PCR) - Final Influenzae A Imaging Radiology Impression Brain CT 11/10/24 13:12 IMPRESSION: Chronic changes. No acute abnormality is seen. The results were communicated with Dr. Fitzpatrick the referring physician. Reading Location: [facility] Chest X-Ray 11/10/24 13:12 IMPRESSION: Generalized osteopenia is present. No acute osseous changes seen. Lungs appear clear of acute disease. No pleural effusion or pneumothorax is noted. The cardiomediastinal silhouette is within the normal range for age. No evidence of acute cardiopulmonary disease. Reading Location: [id number] Head/Neck CTA 11/10/24 13:13 IMPRESSION: RIGHT CAROTID: Unremarkable. LEFT CAROTID: Tight stenosis at the origin of left internal carotid artery. VERTEBRALS: Tiny left vertebral artery. INTRACRANIAL: No large vessel obstruction is seen. One or more dose reduction techniques were used (e.g., Automated exposure control, adjustment of the mA and/or kV according to patient size, use of iterative reconstruction technique). Reading Location: [place] [id number] Brain MRI 11/10/24 14:36 IMPRESSION: 1. No acute intracranial process. 2. Extra-axial dural-based lesion involving the left frontal region laterally measuring 16 mm likely relates to a meningioma. However, recommend further evaluation with MRI of the brain with IV contrast. 3. Chronic small vessel ischemic disease. 4. Atrophy. [facility] Echocardiogram 11/10/24 14:36 Interpretation Summary Left ventricular systolic function is hyperdynamic. The estimated ejection fraction is >75 %. No evidence for diastolic dysfunction. Mild aortic stenosis. Ordering Physician: Lennie Jameson Performed By: Lino Marquez RCS Active Medications Active Medications Active Medications: Current Medications Generic Name Dose Route Start Last Admin Trade Name Freq PRN Reason Stop Dose Admin Acetaminophen 650 mg 11/10/24 15:20 11/11/24 03:59 Acetaminophen 325 Mg Tablet PO 650 mg Q4H PRN PRN Administration Pain 1-10 Or Fever>99.6 Albuterol Sulfate 2.5 mg 11/10/24 19:46 Albuterol 2.5 Mg/3 Ml Vial.Neb. INHALATION Q2H PRN PRN SOB &/OR WHEEZING Albuterol/Ipratropium 3 ml 11/10/24 20:00 11/11/24 12:57 Ipratropium/Albuterol Sulfate 3 Ml Ampul.Neb INHALATION 3 ml Q6HWA.RT VERN Administration Aspirin 81 mg 11/11/24 08:00 11/11/24 09:34 Aspirin 81 Mg Tab.Chew PO 81 mg DAILY@0800 VERN Administration Atorvastatin Calcium 80 mg 11/10/24 22:00 11/10/24 23:04 Atorvastatin Calcium 80 Mg Tablet PO 80 mg QHS VERN Administration Cholecalciferol 25 mcg 11/10/24 22:00 11/11/24 09:35 Cholecalciferol (Vit D3) 25 Mcg Tablet (1,000 Units) PO 25 mcg BID VERN Administration Clopidogrel Bisulfate 75 mg 11/11/24 10:00 11/11/24 09:35 Clopidogrel Bisulfate 75 Mg Tablet PO 75 mg DAILY VERN Administration Donepezil HCl 5 mg 11/11/24 10:00 11/11/24 10:27 Donepezil Hcl 5 Mg Tablet PO 5 mg DAILY VERN Administration Enoxaparin Sodium 40 mg 11/11/24 10:00 11/11/24 10:27 Enoxaparin 40 Mg/0.4 Ml Syringe SC 40 mg DAILY VERN Administration Fluticasone Propionate 2 spray 11/10/24 15:33 Fluticasone 0.05% 1 [place] Nasal.Sry NASAL DAILY PRN congestion Gabapentin 300 mg 11/10/24 17:00 11/11/24 05:54 Gabapentin 300 Mg Capsule PO 300 mg TID VERN Administration Guaifenesin 20 ml 11/10/24 15:20 11/11/24 03:58 Guaifenesin 10 Ml Udc (200mg/10ml) PO 20 ml Q4H PRN PRN Administration COUGH Hydralazine HCl 5 mg 11/10/24 15:20 Hydralazine 20 Mg/Ml Vial IV 11/11/24 15:20 Q30M PRN maintain BP parameters with HR <60 Sodium Chloride 100 mls @ 15 mls/hr 11/10/24 15:22 IV .Q6H40M PRN Saline Flush Sodium Chloride 100 mls @ 15 mls/hr 11/10/24 15:22 IV .Q6H40M PRN Additional IVPB Infusion Labetalol HCl 10 - 20 mg 11/10/24 15:20 Labetalol 20mg/4ml Syringe IV 11/11/24 15:20 Q10M PRN PRN maintain BP parameters with HR >/=60 Melatonin 3 mg 11/10/24 15:20 Melatonin 3 Mg Tablet PO QHS PRN PRN INSOMNIA Ondansetron HCl 4 mg 11/10/24 15:20 Ondansetron 4 Mg/2 Ml Vial IV Q8H PRN PRN NAUSEA/VOMITING Oseltamivir Phosphate 30 mg 11/11/24 10:00 11/11/24 09:35 Oseltamivir Phosphate 30 Mg Capsule PO 11/15/24 22:01 30 mg BID VERN Administration Paroxetine HCl 10 mg 11/11/24 10:00 11/11/24 09:35 Paroxetine 10 Mg Tablet PO 10 mg DAILY VERN Administration Senna/Docusate Sodium 2 tablet 11/10/24 15:20 Senna/Docusate Sodium 1 Tablet PO BID PRN PRN Constipation Sodium Chloride 10 - 40 ml 11/10/24 15:22 11/11/24 03:59 0.9% Saline Lock 10 Ml Syringe IV 10 ml UD PRN Administration SALINE FLUSH
--- NOTE | 2024-11-11 13:16 | MRI_ITS ---
PROCEDURE: BRAIN WITH CONTRAST REASON FOR EXAM: Evaluate for left temporal meningioma TECHNIQUE: Brain MRI with intravenous contrast. COMPARISON: 11/10/2024 FINDINGS: This is a limited exam including postcontrast imaging only. Brain: There is a homogeneously enhancing mass in the periphery of the anterior left temporal lobe measuring 9.7 x 13.2 x 14.5 mm. The ventricles, sulci and cisterns are mildly prominent. Major Intracranial Vessels: Unremarkable MRI/Brain WITH Contrast IMPRESSION: Left anterior temporal lobe meningioma. Reading [facility]
--- NOTE | 2024-11-11 13:58 | CDU_ITS ---
Reason For Study Reason For Study: HX TIA / Carotid Stenosis Rt. Velocities/BP Lt. Velocities/BP Prox CCA 65.2/7.4 cm/sec. Prox CCA 53.7/9.5 cm/sec. Mid CCA 74.8/12.2 cm/sec. Mid CCA 66.7/8.1 cm/sec. Dist CCA 63.7/12.2 cm/sec. Dist CCA 60.1/12.8 cm/sec. Prox ICA 79.7/14.6 cm/sec. Prox ICA 112.5/15.7 cm/sec. Mid ICA 73.6/15.8 cm/sec. Mid ICA 73.2/12.7 cm/sec. Dist ICA 67.1/12.5 cm/sec. Dist ICA 77.6/12.7 cm/sec. Rt. ICA/CCA = 1.1. Lt. ICA/CCA = 1.7. Prox ECA 146.2/14.5 cm/sec. Prox ECA 144.0/14.5 cm/sec. Rt. Vert. 33.9/7.5 cm/sec. Lt. Vert. 23.9/3.3 cm/sec. Right Extracranial There is heterogeneous, irregular atherosclerotic plaque noted in the right common carotid artery. There is heterogeneous, irregular atherosclerotic plaque noted in the right internal carotid artery. There is intimal thickening but no significant atherosclerotic plaque noted in the right external carotid artery. Antegrade flow is noted in the right vertebral artery. There is heterogeneous, irregular atherosclerotic plaque noted in the right bulb. Left Extracranial There is heterogeneous, irregular atherosclerotic plaque noted in the left common carotid artery. There is heterogeneous, irregular atherosclerotic plaque noted in the left internal carotid artery. There is heterogeneous, irregular atherosclerotic plaque noted in the left external carotid artery. Antegrade flow is noted in the left vertebral artery. Abnormal waveform morphology noted. There is heterogeneous, irregular atherosclerotic plaque noted in the left bulb. Procedure Carotid Duplex 22535. This is a Carotid Duplex examination using B-mode, color flow and specral Doppler. The exam was diagnostic. Exam performed portable in patient room. VL/Carotid Duplex Ultrasound Interpretation Summary Mild (<50%) stenosis right extracranial internal carotid. Mild (<50%) stenosis left extracranial internal carotid. Heterogeneous, irregular atherosclerotic plaque is noted in the carotid bulbs b ilaterally, which does not appear hemodynamically significant. Flow within the vertebral arteries is antegrade bi laterally. 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 Clinical correlation is advised. Ordering Physician: Trino Purcell Referring Physician: Matheus Fajardo M.D. Performed By: Chet Fabian RVT
--- NOTE | 2024-11-11 14:48 | CASEMGMT ---
SW did not complete a PHQ9 as patient did not have a Stroke. Alyssa NUÑEZ
--- NOTE | 2024-11-11 15:02 | CASEMGMT ---
Patient has order for discharge. RN CM in to discuss needs at discharge, husbadn and son at bedside. Patient and son deny needs or help at discharge. Patient and son had no further questions or concerns.
--- NOTE | 2024-11-11 15:12 | PCM.DC ---
Discharge Instructions Diet Discharge Diet: Low fat / Low cholesterol DC O2, CPAP, BIPAP needs Home O2 Discharge instructions: No Dressing / Incision Discharge Activity: Return to Normal Activity Dressing / Incision Call your doctor if you observe: Fever of 101 or Higher, Shortness of breath, Dizziness, Fainting spells, Swelling in the ankles, Chest pain and Increased palpitations (irregular heartbeat) Follow Up Care Test Results: Test results from this visit will be discussed in further detail at your follow-up appointment, if applicable. Discharge Plan Admission Admit Date/Time: 11/10/24 14:29 Attending Provider: Trino Purcell Primary Care Provider: Matheus Fajardo Consulting Providers: Alvin Bell; Tanika Morgan; Brandie Walsh; Laura Hernandez; Tiff Cueva; Konstantin Tong; Mandy Flores; Clement Grissom; Dave Russell; Roger Walden; Yulissa Thomas; Nikhil Mallory; Ivonne Huddleston; Kristen Friedman; Cayla Trujillo; Trae Anaya; Carlos Parham; Víctor Dao; Saranya Jameson; Lui Justice; Lennie Jameson Discharge Orders/Prescriptions Prescriptions: New oseltamivir 30 mg Capsule 30 mg PO BID 4 Days Qty: 8 0RF Continued atorvastatin 80 mg tablet 80 mg PO QHS gabapentin 300 mg capsule 300 mg PO TID atenolol 25 MG tablet 25 mg PO DAILY aspirin 81 MG tablet,chewable 81 mg PO DAILY@0800 donepezil 10 mg tablet 5 mg PO DAILY Patient Comments: STATES BEING SPLIT TO EQUAL 5MG BECAUSE OF SIDE EFFECTS mirabegron 50 mg tablet extended release 24 hr 50 mg PO DAILY cholecalciferol (vitamin D3) 25 mcg (1,000 unit) capsule 25 mcg PO BID triamcinolone acetonide [24 Hour Nasal Allergy] 55 mcg aerosol,spray 2 spray intranasal DAILY PRN (Reason: congestion) Rx Instructions: administer into each nostril paroxetine HCl 10 mg tablet 10 mg PO DAILY Referrals / Follow Up: Matheus Fajardo MD [Primary Care Provider] - Within 1 Week Brandon Holloway MD [Non-Staff -Ordering Privileges] - Within 3 Months Disposition Disposition (needs filled in before D/C Order can be placed): Home, Self Care
--- NOTE | 2024-11-11 16:12 | DS.PCM_ITS ---
Providers Date of Admission: 11/10/24 Primary Care Physician: Dr. Matheus Fajardo MD Consultations 11/10/24 15:20 Consult: Tele-Neurology Routine Consulting Provider: [facility] Reason for Consult: Acute Ischemic Stroke/TIA EMERGENT Consult: No MD Notified: Yes Date Notified: 11/10/24 Time Notified: 15:25 Method of Notification: Answering Service Nursing Unit Staff Notify [facility] of Tele-Neurology Consult: Yes Reason For Visit: L FACIAL DROOP/ SLURRED SPEECH Diagnosis Discharge Diagnosis (1) Carotid artery stenosis: Status: Acute Code(s): I65.29 - Occlusion and stenosis of unspecified carotid artery (2) Hypoxia: Status: Acute Code(s): R09.02 - Hypoxemia (3) Facial droop: Status: Acute Code(s): R29.810 - Facial weakness (4) Dysarthria: Status: Acute Code(s): R47.1 - Dysarthria and anarthria (5) Influenza A H1N1 infection: Status: Acute Code(s): J10.1 - Influenza due to other identified influenza virus with other respiratory manifestations (6) Weakness: Status: Acute Code(s): R53.1 - Weakness Medications at Discharge Home Medications aspirin 81 mg chewable tablet 81 mg PO DAILY@0800 preventative 07/06/14 atenolol 25 mg tablet 25 mg PO DAILY heart 07/06/14 atorvastatin 80 mg tablet 80 mg PO QHS cholesterol 09/02/19 gabapentin 300 mg capsule 300 mg PO TID neuropathy 09/18/22 cholecalciferol (vitamin D3) 25 mcg (1,000 unit) capsule 25 mcg PO BID vitamin 11/10/24 donepezil 10 mg tablet 5 mg PO DAILY memory 11/10/24 mirabegron 50 mg tablet,extended release 24 hr 50 mg PO DAILY bladder 11/10/24 paroxetine HCl 10 mg tablet 10 mg PO DAILY mood 11/10/24 triamcinolone acetonide 55 mcg nasal spray aerosol (24 Hour Nasal Allergy) 2 spray intranasal DAILY PRN congestion 11/10/24 oseltamivir 30 mg capsule 30 mg PO BID 4 days #8 caps 11/11/24 Hospital Course Operations None Procedures 2-D Echocardiogram Summary of Care Provided Minutes Spent on Discharge: 37 Hospital Course: Per HPI: MATTIE FOX, is a 84 F who presented to the emergency department at [facility] on 11/10/2024 with a chief complaint of left-sided facial droop and slurred speech with left-sided weakness. Last known normal was midnight last night. She got up this morning and was noted to have some dysarthria/slurred speech and some left facial droop. Her son came over and he noted some left-sided weakness. NIH at time of presentation was 1 and an age at the time my evaluation was 0. She has never had symptoms like this previously. She does have a history of hypertension hyperlipidemia and does take medication for memory loss. Family reports that she typically is oriented times self and place but time tends to be difficult for her. They do state that currently her memory is worse than her baseline. Her does report that they have both been ill with some upper respiratory type symptoms. His started a few days ago and her seem to start in the last 48 hours. She has had some cough and some nasal drainage but no fever or chills. Vital signs on presentation showed temperature of 98.9, heart rate 80, respiratory 18, initial blood pressure was 182/85 with a repeat of 153/67, oxygen saturation was 90% on room air. Oxygen saturation dropped to 89% on room air so she was placed on 2 L nasal cannula with improvement to 96% on 2 L. CBC was overtly unremarkable. She does have a erythrocytosis which appears to be chronic and stable. She has mild thrombocytopenia with a platelet count of 145,000. Differential does show a left shift. Coags were negative. Chemistry panel was unremarkable. Troponin was less than 3. Her UA is not consistent with infection. Chest x-ray was unremarkable. CT of the brain showed chronic changes with no acute abnormalities. CTA of the head and neck showed unremarkable right carotid artery and near occlusion at the origin of the left internal carotid artery due to calcific plaque formation. Vertebral arteries are tiny but antegrade with no LVO noted. COVID/flu/RSV was initially reported out as negative however since has popped positive for influenza A. Stroke team was called on arrival and the stroke neurologist evaluated the patient agreed with admission for stroke rule out. Hospital Course: 1. Possible TIA?84-year-old female presented to the hospital for left facial droop and left-sided weakness with slurred speech that resolved prior to admission. She is already on aspirin and takes Lipitor 80 mg nightly. MRI of the brain was negative for stroke and CTA of the head and neck demonstrated a stenosis in the left carotid which will be evaluated by carotid ultrasound. MRI did demonstrate a left temporal meningioma which was also redemonstrated an MRI with contrast. Symptoms have completely resolved and no acute intervention at this time for either of these issues. She can follow-up with vascular surgery as an outpatient for this carotid stenosis and for evaluation of the carotid duplex. I discussed with her and her the possibility for discharge today and expressed understanding of the risks and benefits of going home and would like to go home today instead of waiting for results. She wanted to follow-up with neurology as well as her PCP as an outpatient. Echocardiogram was unremarkable. 2. Acute hypoxia secondary to influenza metabolic encephalopathy?this has resolved, she is started on Tamiflu 30 mg p.o. twice daily which she will continue for another 4 days. Her had been battling an upper respiratory infection since Thursday and she developed similar symptoms within the last 48 hours. states that she is back at baseline. 3. Coronary artery disease, essential hypertension, hyperlipidemia, chronic erythrocytosis, type 2 diabetes, neuropathy, peripheral vascular disease, tobacco abuse are all chronic medical conditions which complicate her care. Her home medications were continued where appropriate. Cessation of tobacco products was discussed. Physical Exam Narrative General: Alert, Oriented x3, Cooperative, No apparent distress HEENT: Atraumatic, PERRLA, EOMI, Normocephalic, hard of hearing Oral: Moist Mucosa Neck: Supple, No JVD Lungs: Diminished, Normal air movement, No rhonchi, No wheeze, No rales Cardiovascular: Regular rate, Regular Rhythm, Normal S1, Normal S2, No murmurs Abdomen: Soft, Non Tender, Non-Distended, No Hepato-splenomegaly Extremities: No edema, Capillary Refill Less than 3 Seconds Skin: No rashes, No breakdown Musculoskeletal: No Tenderness to Palpation of Joints or Extremities Neurological: No focal neurological deficits, Motor Exam 5/5 strength throughout, Sensory exam intact to light touch and pain Psych/Mental Status: Normal Affect, Appropriate Weight / BMI Weight Weight: 150 lb 5.684 oz Body Mass Index (BMI) 23.5 ABG / Lab / Microbiology Data 11/11/24 05:10 11/11/24 05:10 Laboratory: Laboratory Results - last 24 hr 11/11/24 05:10: WBC 6.6, RBC 5.20, Hgb 14.9, Hct 44.7, MCV 86.0, MCH 28.7, MCHC 33.3, RDW Std Deviation 45.9 H, RDW Coeff of Joslyn 14.6, Plt Count 122 L, MPV 11.2, Immature Gran % (Auto) 0.500, Neut % (Auto) 71.3 H, Lymph % (Auto) 18.0 L, [place] % (Auto) 9.3, Eos % (Auto) 0.6, Baso % (Auto) 0.3, Absolute Neuts (auto) 4.7, Absolute Lymphs (auto) 1.18, Nucleated RBC % 0, Sodium 135 L, Potassium 3.6, Chloride 102, Carbon Dioxide 24.0, Anion Gap 9, BUN 16, Creatinine 0.88, Estim Creat Clear Calc 45.45, Est GFR (MDRD) Af Amer 78, Est GFR (MDRD) Non-Af 65, BUN/Creatinine Ratio 18.2, Glucose 89, Calcium 9.0, Phosphorus 3.4, Magnesium 2.2, Total Bilirubin 0.80, AST 21, ALT 22, Alkaline Phosphatase 70, Total Protein 6.5, Albumin 3.1 L, Globulin 3.4, Albumin/Globulin Ratio 0.9, Triglycerides 105, Cholesterol 109, LDL Cholesterol 43, VLDL Cholesterol 21, HDL Cholesterol 45 Microbiology: Microbiology 11/10/24 15:50 Mucosa - Nasopharyngeal Respiratory Panel (PCR) - Final 11/10/24 14:00 Mucosa - Nose SARS-CoV-2, Influenza & RSV (PCR) - Final Influenzae A Radiography Diagnostic Testing: Radiology Impression Brain MRI 11/10/24 14:36 IMPRESSION: 1. No acute intracranial process. 2. Extra-axial dural-based lesion involving the left frontal region laterally measuring 16 mm likely relates to a meningioma. However, recommend further evaluation with MRI of the brain with IV contrast. 3. Chronic small vessel ischemic disease. 4. Atrophy. Reading Location: [facility] Echocardiogram 11/10/24 14:36 Interpretation Summary Left ventricular systolic function is hyperdynamic. The estimated ejection fraction is >75 %. No evidence for diastolic dysfunction. Mild aortic stenosis. Ordering Physician: Lennie Jameson Performed By: Lino Marquez RCS D/C Instructions Discharge Diet: Low fat / Low cholesterol Call your doctor if you observe: Fever of 101 or Higher, Shortness of breath, Dizziness, Fainting spells, Swelling in the ankles, Chest pain and Increased palpitations (irregular heartbeat) DC O2, CPAP, BIPAP Needs Home O2 Discharge instructions: No Meaningful Use Info Meaningful Use Meaningful Use Diagnoses (Choose all that apply): None applicable Ischemic Stroke Statin Dosing Therapy Reference: STATIN DOSE THERAPY REFERENCE: * Patients > 75 years receive moderate or high dose statin therapy. * Patients 75 years or YOUNGER should receive HIGH intensity statin dose unless contraindicated. You will be required to document reason for non-treatment if statin daily dose does not meet guidelines. HIGH DOSE STATIN THERAPY DAILY Atorvastatin > than or = to 40 mg Rosuvastatin > than or = to 20 mg Amlodipine + Atorvastatin > than or = to 2.5/40 mg Ezetimibe + Simvastatin 10/80 mg Simvastatin 80mg Discharge Plan Admission Admit Date/Time: 11/10/24 14:29 Attending Provider: Trino Purcell Primary Care Provider: Matheus Fajardo Consulting Providers: Alvin Bell; Tanika Morgan; Brandie Walsh; Laura Hernandez; Tiff Cueva; Konstantin Tong; Mandy Flores; Clement Grissom; Dave Russell; Roger Walden; Mattie Thomas; Nikhil Mallory; Ivonne Huddleston; Kristen Friedman; Cayla Trujillo; Trae Anaya; Carlos Parham; Víctor Dao; Saranya Jameson; Lui Justice; Lennie Jameson Discharge Orders/Prescriptions Prescriptions: New oseltamivir 30 mg Capsule 30 mg PO BID 4 Days Qty: 8 0RF Continued atorvastatin 80 mg tablet 80 mg PO QHS gabapentin 300 mg capsule 300 mg PO TID atenolol 25 MG tablet 25 mg PO DAILY aspirin 81 MG tablet,chewable 81 mg PO DAILY@0800 donepezil 10 mg tablet 5 mg PO DAILY Patient Comments: STATES BEING SPLIT TO EQUAL 5MG BECAUSE OF SIDE EFFECTS mirabegron 50 mg tablet extended release 24 hr 50 mg PO DAILY cholecalciferol (vitamin D3) 25 mcg (1,000 unit) capsule 25 mcg PO BID triamcinolone acetonide [24 Hour Nasal Allergy] 55 mcg aerosol,spray 2 spray intranasal DAILY PRN (Reason: congestion) Rx Instructions: administer into each nostril paroxetine HCl 10 mg tablet 10 mg PO DAILY Referrals / Follow Up: Miguel Ángel Dumont MD [Med Staff - Active Staff] - Within 1 Month Brandon Holloway MD [Non-Staff -Ordering Privileges] - Within 3 Months Matheus Fajardo MD [Primary Care Provider] - Within 1 Week Disposition Disposition (needs filled in before D/C Order can be placed): Home, Self Care Charges/Coding Visit Charges Inpatient E&M: 93045 Disch Hosp >30min
[2024-11-11 16:25] VITALS: BP 107/70; PULSE 71; RESP 17; TEMP 37.2; O2SAT 91
[2024-11-11 16:38] VITALS: BMI 23.5
== END 2024-11-11 14:16 | disposition home or self-care (01) ==
LOC: ED 14:27 → PCU 14:40
PROVIDERS: Admitting Provider Internal Medicine; Emergency Provider Emergency Medicine; PCP Internal Medicine; Visit Provider Family Medicine
DX: J10.1 Influenza due to other identified influenza virus with other respiratory manifestations (principal); G30.9 Alzheimer's disease, unspecified; F02.80 Dementia in other diseases classified elsewhere, unspecified severity, without behavioral disturbance, psychotic disturbance, mood disturbance, and anxiety; D32.9 Benign neoplasm of meninges, unspecified; E11.51 Type 2 diabetes mellitus with diabetic peripheral angiopathy without gangrene; E11.42 Type 2 diabetes mellitus with diabetic polyneuropathy; E78.2 Mixed hyperlipidemia; I65.23 Occlusion and stenosis of bilateral carotid arteries; Z79.82 Long term (current) use of aspirin; I25.10 Atherosclerotic heart disease of native coronary artery without angina pectoris; R53.1 Weakness; I10 Essential (primary) hypertension; R09.02 Hypoxemia; R47.81 Slurred speech; D69.6 Thrombocytopenia, unspecified; R47.1 Dysarthria and anarthria; R29.810 Facial weakness; Z79.899 Other long term (current) drug therapy; F17.210 Nicotine dependence, cigarettes, uncomplicated; G92.8 Other toxic encephalopathy
CPT/HCPCS: 36415; 70450; 70496; 70498; 70551; 70552; 71045; 80048; 80053; 80061; 81001; 83036; 83735; 84100; 84484; 85025; 85610; 85730; 87631; 87633; 93005; 93306; 93880; 94640; 94762; 96372; 97162; 97166; 97802; 99221; 99252; 99285; A9575; Q9957; Q9967; A4216; C8929; G0378; G0463

== ENCOUNTER 2024-11-20 00:53 | Emergency (ER) | payer MEDICARE, SELFPAY ==
[2024-11-20 00:57] VITALS: BP 130/68; PULSE 70; RESP 18; TEMP 37.4; O2SAT 86; O2SAT 93; BMI 25.3
--- NOTE | 2024-11-20 02:08 | EKG12_ITS ---
Test Reason : DYSRHYTHMIA Blood Pressure : */* mmHG Vent. Rate : 62 BPM Atrial Rate : 62 BPM P-R Int : 178 ms QRS Dur : 68 ms QT Int : 410 ms P-R-T Axes : 18 -1 58 degrees QTcB Int : 416 ms Normal sinus rhythm Normal ECG Confirmed by Michael Mccoy ([id number]), medical editor TAZ MCNALLY ([id number]) on 11/21/2024 10:30:07 AM Referred By: Confirmed By: Michael Mccoy
--- NOTE | 2024-11-20 02:08 | CT_ITS ---
PROCEDURE: CTA HEAD AND NECK W/ CONTRAST REASON FOR EXAM: Weakness TECHNIQUE: CTA imaging of the head and neck from the aortic arch to the skull vertex with intravenous contrast. 3D reconstructions. COMPARISON: None. # of known CTs in the past 12 months: 0 # of known Cardiac Nuclear Medicine Studies in the past 12 months: 0 FINDINGS: Aortic Arch: Normal size and branching pattern. Mild atherosclerotic plaque. Brachiocephalic and Subclavians: Unremarkable RIGHT Carotid: Right CCA: Mild calcified and soft plaque. Right ICA: Mild calcified and soft plaque. Maximum stenosis (NASCET): 46 % Right ECA: Unremarkable. LEFT Carotid: Left CCA: Mild calcified and soft plaque. Left ICA: Mild calcified and soft plaque. Maximum stenosis (NASCET): 29 % Left ECA: Unremarkable. Vertebrals: Codominant. Arise from the subclavians. Both vertebrals form the basilar. RIGHT Vertebral: Unremarkable. LEFT Vertebral: Unremarkable. Ventricles, cisterns and sulci are mildly prominent. Nonspecific periventricular white matter changes are noted. No intracranial aneurysms or large vascular malformations are identified. Anterior cerebral arteries: Patent Middle cerebral arteries: Patent Basilar artery: Patent Posterior cerebral arteries: Patent Other major branches of the posterior circulation: Patent Major venous structures: Patent Other findings: No lymphadenopathy. Lung apices are clear. Bones are unremarkable. CT/CTA Head AND Neck W/ Contrast IMPRESSION: 1. Mild atherosclerotic disease with no hemodynamically significant stenosis i n the arteries of the head and neck. 46% stenosis of the proximal right internal carotid artery by NASCET criteria 29% stenosis of the proximal left internal carotid artery by NASCET criteria 2. Age-appropriate volume loss and remote small vessel ischemic changes One or more dose reduction techniques were used (e.g., Automated exposure contr ol, adjustment of the mA and/or kV according to patient size, use of iterative reconstruction technique). Reading Location: [facility]
[2024-11-20] MEDS: 0.9% Normal Saline (500mL Bag) 500 ML 999 ML IV (02:24)
[2024-11-20 02:27] LABS: Absolute Lymphocyte Count 1.67 X10^3/uL (0.83-4.51); Absolute Neutrophil Count 10.8 X10^3/uL (2.0-7.7); Basophil# 0.05 X10^3/uL; Basophil% 0.4 % (0-1); Eosinophil# 0.02 X10^3/uL; Eosinophils% 0.1 % (0-5); Hematocrit 43.1 % (37-47); Hemoglobin 14.2 g/dL (12.0-15.0); Lymphocyte # 1.67 X10^3/ul (0.83-4.51); Mean Corp Hgb Conc 32.9 g/dL (32-36); Mean Corpuscular Hgb 28.3 pg (27.0-32.0); Mean Corpuscular Volume 85.9 fL (81-99); Mean Platelet Vol. 9.8 fl (6.2-12.0); Monocyte# 1.25 X10^3/uL; NRBC Flagged by Analyzer 0 % (0-5); Neutrophil # 10.83 X10^3/uL (2.7-7.7); Neutrophil % 77.9 % (47-70); Platelet Count 216 K/mm3 (150-450); RBC Distribution Width CV 14.3 % (11.6-14.6); Red Blood Count 5.02 M/mm3 (4.2-5.4); White Blood Count 13.9 K/mm3 (4.4-11.0)
[2024-11-20 02:36] LABS: International Normalized Ratio 1.1; Partial Thromboplast Time 34.9 Seconds (24.1-36.2); Prothrombin Time (Protime)PT. 14.1 SECONDS (11.7-14.9)
[2024-11-20 02:41] LABS: Anion Gap 7 (5-15); BUN 11 mg/dL (7-18); BUN/Creat Ratio 12.8 RATIO (10-20); Calcium,Total 9.1 mg/dL (8.5-10.1); Chloride 102 mmol/L (98-107); Creatinine, Serum 0.86 mg/dL (0.55-1.02); EST Glomerular Filtration Rate 67 mL/min (>60); Est Glom Filt Rate - Afr Amer 81 mL/min (>60); Estimated Creatinine Clearance 46.51 ml/min; Glucose 126 mg/dL (74-106); Potassium 3.7 mmol/L (3.5-5.1); Sodium Level 136 mmol/L (136-145)
--- NOTE | 2024-11-20 02:50 | RAD_ITS ---
PROCEDURE: CHEST 1 VIEW (PORTABLE) REASON FOR EXAM: Weakness TECHNIQUE: Frontal view of the chest. COMPARISON: 11/10/2024. FINDINGS: The heart size is normal. There are atherosclerotic calcifications of the thoracic aorta. There are chronic-appearing changes of both lungs. Degenerative changes are identified within the thoracic spine. RAD/Chest 1 View (Portable) IMPRESSION: Chronic interstitial changes with left basilar opacity which may represent atel ectasis, airspace disease, and/or pleural effusion Reading Location: [facility]
[2024-11-20 03:00] VITALS: BP 124/60; PULSE 64; RESP 20; O2SAT 93
[2024-11-20 04:14] LABS: Mucous, Urine 0 SEEN /hpf (<or=2+); White Blood Cells 0 SEEN /hpf (0-5)
[2024-11-20 04:25] LABS: Color, Urine Straw (Yellow); Glucose, Dipstick Normal (Normal); Ketone-Dipstick Negative (Negative); Leukocyte Esterase-Dipstick Negative /ul (Negative); Nitrite-Dipstick Negative (Negative); Occult Blood-Urine 25 /ul (Negative); Protein-Dipstick Negative (Negative); Specific Gravity, Urine 1.005 (1.002-1.030); Urine Bilirubin Dipstick Negative (Negative); Urine Clarity Clear (Clear); Urine Urobilinogen Normal (Normal)
[2024-11-20 05:06] LABS: Bacteria RARE /hpf (None Seen); Red Blood Cells-Urine 0-5 SEEN /hpf (0-5); Squamous Epithelial Cells - UA 0-5 SEEN /hpf (5-10)
[2024-11-20 05:22] VITALS: BP 139/61; PULSE 63; RESP 12; O2SAT 92; O2SAT 95
--- NOTE | 2024-11-20 05:46 | EX.ED.DYSGE1 ---
HPI History of Present Illness Chief Complaint: Weakness Informant: patient, spouse/S.O. and family Narrative Narrative: Patient is a 84-year-old female with past medical history of tobacco abuse type 2 diabetes hypertension hyperlipidemia and previous TIA. The TIA occurred just recently and she was admitted and had a carotid duplex as well as MRI. Family states that the symptoms associate with the TA were weakness and the inability to stand. They state that this evening the patient could not get up and the symptoms lasted for a few hours and therefore as they are very similar nature to her recent TIA she was brought back in for evaluation [facility] Medical History (Updated 11/25/24 @ 07:[address] Maury Melton, DO) Alzheimer's dementia Abdominal aortic aneurysm without rupture Tobacco abuse Aortic valve sclerosis Old myocardial infarction JL on CPAP PVD (peripheral vascular disease) Presence of stent in coronary artery (~12/18/03) Stenosis of infrarenal abdominal aorta due to atherosclerosis (~03/11/04) Diabetic peripheral neuropathy associated with type 2 diabetes mellitus Type 2 diabetes mellitus DDD (degenerative disc disease) Bilateral carotid artery disease GERD (gastroesophageal reflux disease) Essential hypertension Mixed hyperlipidemia Atherosclerotic heart disease of [place] coronary artery without angina pectoris Home Medications ?Medication ?Instructions ?Recorded ?Last Taken ?Type aspirin 81 mg chewable tablet 81 mg PO DAILY@0800 preventative 07/06/14 11/09/24 History atenolol 25 mg tablet 25 mg PO DAILY heart 07/06/14 11/09/24 History atorvastatin 80 mg tablet 80 mg PO QHS cholesterol 09/02/19 11/09/24 History gabapentin 300 mg capsule 300 mg PO TID neuropathy 09/18/22 11/09/24 History cholecalciferol (vitamin D3) 25 25 mcg PO BID vitamin 11/10/24 11/09/24 History mcg (1,000 unit) capsule donepezil 10 mg tablet 5 mg PO DAILY memory 11/10/24 11/09/24 History mirabegron 50 mg tablet,extended 50 mg PO DAILY bladder 11/10/24 11/09/24 History release 24 hr paroxetine HCl 10 mg tablet 10 mg PO DAILY mood 11/10/24 Unknown History triamcinolone acetonide 55 mcg 2 spray intranasal DAILY PRN 11/10/24 Unknown History nasal spray aerosol (24 Hour Nasal congestion Allergy) oseltamivir 30 mg capsule 30 mg PO BID 4 days #8 caps 11/11/24 Unknown Rx doxycycline hyclate 100 mg capsule 100 mg PO BID 10 days #20 caps 11/20/24 Unknown Rx Allergy/AdvReac Type Severity Reaction Status Date / Time hydrocodone Allergy Rash Verified 11/20/24 00:57 Penicillins (PCN) Allergy Other Verified 11/20/24 00:57 Sulfa (Sulfonamide Allergy Unknown Verified 11/20/24 00:57 Antibiotics) amoxicillin (From Augmentin) AdvReac Mild itching Verified 11/20/24 00:57 clavulanic acid (From AdvReac Mild itching Verified 11/20/24 00:57 Augmentin) acetaminophen (From Vicodin) AdvReac Other Verified 11/20/24 00:57 hydrocodone bitartrate (From AdvReac Other Verified 11/20/24 00:57 Vicodin) lovastatin (From Mevacor) AdvReac Other Verified 11/20/24 00:57 rosuvastatin calcium (From AdvReac Other Verified 11/20/24 00:57 Crestor) simvastatin (From Zocor) AdvReac Other Verified 11/20/24 00:57 Family History Father Myocardial infarction Heart disease CVA (cerebral vascular accident) Diabetes Brother CAD (coronary artery disease) Surgical History History of left breast biopsy Cataract extraction status of left eye History of surgery on wrist History of cystoscopy Presence of coronary angioplasty implant and graft (~12/18/03) Social History (Updated 11/10/24 @ 15:41 by Karissa Lopez) Smoking Status: Current every day smoker tobacco type: cigarettes alcohol intake: never substance use type: does not use caffeine: Yes Type: carbonated beverages Number of servings: 3 and tea Number of servings: 3 ROS ROS ED ROS Narrative Please note review of systems may be unreliable secondary to patient's history of dementia Constitutional Constitutional ED: Denies chills or fever(s) Eyes Eyes: Denies blurry vision or change in vision ENT ENT ED: Denies rhinorrhea or sore throat Cardiovascular Cardiovascular: Denies chest pain, palpitations or racing heartbeat Respiratory/Chest Respiratory/Chest: Denies cough or dyspnea Gastrointestinal Gastrointestinal: Denies abdominal pain, diarrhea, nausea or vomiting Genitourinary Genitourinary ED: Denies dysuria Musculoskeletal Musculoskeletal: Denies myalgias Integumentary Denies rash Neurologic Neurologic: Reports weakness; Denies headache(s) Hematologic/Lymphatic Hematologic/Lymphatic: Denies easy bleeding or easy bruising EXAM Physical Exam Const Vital Signs: 11/20/24 00:57 11/20/24 00:57 11/20/24 01:40 Temperature 99.3 F H Temperature Source Oral Pulse Rate 70 Respiratory Rate 18 Respiratory Effort Short of Breath Respiratory Pattern Normal Blood Pressure 130/68 H Blood Pressure Mean 88 Pulse Ox 86 93 Oxygen Delivery Method Room Air Nasal Cannula Oxygen Flow Rate (L/min) 2 11/20/24 03:00 11/20/24 05:22 Temperature Temperature Source Pulse Rate 64 63 Respiratory Rate 20 H 12 Respiratory Effort Respiratory Pattern Blood Pressure 124/60 H 139/61 H Blood Pressure Mean 81 87 Pulse Ox 93 92 Oxygen Delivery Method Nasal Cannula Room Air Oxygen Flow Rate (L/min) 2 Positive well nourished and well developed General Appearance ED: well developed; Negative for pallor HEENT HEENT Narrative: No tongue or lip swelling no oral lesions no airway edema or compromise No secondary findings in the posterior pharynx to suggest infection No tongue or cheek biting noted to suggest seizure activity Eyes PERRL and EOMs intact bilaterally General Eye ED: Negative for scleral icterus Neck supple and no JVD Neck Narrative: No nuchal rigidity or meningeal signs noted Chest Wall palpation of chest normal Resp normal respiratory effort Resp Narrative: Breath sounds are diminished throughout with diffuse expiratory wheeze and rhonchi in the bilateral bases consistent with history of tobacco use/smoking but no signs of respiratory distress Cardio regular rate and regular rhythm Rate: other Other Details: Heart is regular rate and rhythm with a grade 4 out of 6 systolic murmur Radial and carotid pulses are equal and symmetric Bilateral carotid bruits are noted GI normal to inspection, nondistended, normoactive bowel sounds, non-tender, non-distended and no masses GI Narrative: No voluntary guarding or rigidity or pulsatile mass Auscultation: normoactive bowel sounds Palpation: soft Extremity normal to inspection Extremity Narrative: No obvious bony deformity or joint effusion Neuro CN's II-XII intact bilaterally and no sensory deficits noted Neuro Narrative: Patient is at her baseline mental status There is no obvious weakness noted at this time No pronator drift no dysmetria no truncal ataxia NIH stroke scale score of 1 secondary to baseline disorientation from dementia Psych mental status grossly normal Skin no rashes or lesions noted and no wounds General Skin Exam: Negative for jaundice or pallor MDM MDM MDM Narrative Medical decision making narrative: Patient presented to the ER with stable vitals and on exam had spontaneous improvement of the reported weakness. She had a TIA recently and has known carotid artery disease. History and exam is most consistent with a repeat TIA based on her reported symptoms per family and now spontaneous resolution. In order to ensure that tonight's episode was not related to a infectious process such as pneumonia or UTI or due to acute kidney injury or a clinically significant electrolyte abnormality such as hypokalemia basic blood work was obtained as well as chest x-ray and repeat CTA of the head and neck. Blood work showed mild elevation to the white count but otherwise no signs of acute blood loss anemia ROBER or clinically significant [place] abnormality. Urine sample revealed no sign of infection and chest x-ray revealed no obvious pneumonia. CTA revealed no new or focal finding. On reevaluation the patient was able to stand and walk with her walker as she does at her baseline per family. Therefore at this time as she has been recently been admitted for TIA and is already in the process of having this worked up as an outpatient and her symptoms have completely resolved at this time and she is back to her baseline strength and mental status without secondary findings such as acute infection or ROBER I do not feel the need for readmission and therefore she will be discharged home. Family and patient are comfortable with this plan of care now that patient is back to baseline mental status and strength. History & Record Review Discussion w/independent historian: Patient and Family Lab Data Attestation: I reviewed the patient's lab results. Labs: Laboratory Results - last 24 hr 11/20/24 11/20/24 02:20 03:45 WBC 13.9 H RBC 5.02 Hgb 14.2 Hct 43.1 MCV 85.9 MCH 28.3 MCHC 32.9 RDW Std Deviation 45.0 H RDW Coeff of Joslyn 14.3 Plt Count 216 MPV 9.8 Immature Gran % (Auto) 0.600 Neut % (Auto) 77.9 H Lymph % (Auto) 12.0 L [place] % (Auto) 9.0 Eos % (Auto) 0.1 Baso % (Auto) 0.4 Absolute Neuts (auto) 10.8 H Absolute Lymphs (auto) 1.67 Nucleated RBC % 0 PT 14.1 INR 1.1 APTT 34.9 Sodium 136 Potassium 3.7 Chloride 102 Carbon Dioxide 26.0 Anion Gap 7 BUN 11 Creatinine 0.86 Estim Creat Clear Calc 46.51 Est GFR (MDRD) Af Amer 81 Est GFR (MDRD) Non-Af 67 BUN/Creatinine Ratio 12.8 Glucose 126 H Calcium 9.1 Magnesium 2.0 Urine Color Straw Urine Clarity Clear Urine pH 7.0 Ur Specific [place] 1.005 Urine Protein Negative Urine Glucose (UA) Normal Urine Ketones Negative Urine Occult Blood 25 H Urine Nitrite Negative Urine Bilirubin Negative Urine Urobilinogen Normal Ur Leukocyte Esterase Negative Urine RBC 0-5 SEEN Urine WBC 0 SEEN Ur Squamous Epith Cells 0-5 SEEN Urine Bacteria RARE Urine Mucus 0 SEEN Radiography Diagnostic Testing: Clinical Impression(s) from Imaging Studies Head/Neck CTA 11/20/24 02:08 IMPRESSION: 1. Mild atherosclerotic disease with no hemodynamically significant stenosis in the arteries of the head and neck. 46% stenosis of the proximal right internal carotid artery by NASCET criteria 29% stenosis of the proximal left internal carotid artery by NASCET criteria 2. Age-appropriate volume loss and remote small vessel ischemic changes One or more dose reduction techniques were used (e.g., Automated exposure control, adjustment of the mA and/or kV according to patient size, use of iterative reconstruction technique). Reading Location: [facility] Chest X-Ray 11/20/24 02:50 IMPRESSION: Chronic interstitial changes with left basilar opacity which may represent atelectasis, airspace disease, and/or pleural effusion Reading Location: [facility] Discharge Plan Triage Chief Complaint: Weakness ED Provider: Maury Melton Dx/Rx/DC Orders Clinical Impression: Brain TIA, Tobacco abuse, Essential hypertension, Type 2 diabetes mellitus Instructions: ED TIA: Transient Ischemic Attack Prescriptions: New doxycycline hyclate 100 mg capsule 100 mg PO BID 10 Days Qty: 20 0RF No Action atorvastatin 80 mg tablet 80 mg PO QHS gabapentin 300 mg capsule 300 mg PO TID atenolol 25 MG tablet 25 mg PO DAILY aspirin 81 MG tablet,chewable 81 mg PO DAILY@0800 donepezil 10 mg tablet 5 mg PO DAILY Patient Comments: STATES BEING SPLIT TO EQUAL 5MG BECAUSE OF SIDE EFFECTS mirabegron 50 mg tablet extended release 24 hr 50 mg PO DAILY cholecalciferol (vitamin D3) 25 mcg (1,000 unit) capsule 25 mcg PO BID triamcinolone acetonide [24 Hour Nasal Allergy] 55 mcg aerosol,spray 2 spray intranasal DAILY PRN (Reason: congestion) Rx Instructions: administer into each nostril paroxetine HCl 10 mg tablet 10 mg PO DAILY oseltamivir 30 mg Capsule 30 mg PO BID 4 Days Qty: 8 0RF Primary Care Provider: Matheus Fajardo Referrals: Matheus Fajardo MD [Primary Care Provider] - Activity Restrictions/Additional Instructions: Take the doxycycline as directed based on your x-ray showing a questionable pneumonia. Follow-up with neurology as directed because of your TIA and continue to take the aspirin and Plavix. Return to the ER should you have any further concerns Print Language: Japanese Disposition Disposition: Home, Self Care Discharge Date/Time: 11/20/24 06:08
[2024-11-20 05:50] VITALS: BP 133/77; PULSE 64; RESP 18; TEMP 36.8; O2SAT 95
[2024-11-20] MEDS: Doxycycline 100 MG CAPSULE PO (05:55)
== END 2024-11-20 06:08 | disposition home or self-care (01) ==
PROVIDERS: Emergency Provider Emergency Medicine; PCP Internal Medicine; Visit Provider Emergency Medicine
DX: Z86.73 Personal history of transient ischemic attack (TIA), and cerebral infarction without residual deficits (principal); G30.9 Alzheimer's disease, unspecified; F02.80 Dementia in other diseases classified elsewhere, unspecified severity, without behavioral disturbance, psychotic disturbance, mood disturbance, and anxiety; E11.42 Type 2 diabetes mellitus with diabetic polyneuropathy; E78.2 Mixed hyperlipidemia; I10 Essential (primary) hypertension; I25.10 Atherosclerotic heart disease of native coronary artery without angina pectoris; I65.23 Occlusion and stenosis of bilateral carotid arteries; K21.9 Gastro-esophageal reflux disease without esophagitis; Z95.5 Presence of coronary angioplasty implant and graft; F17.210 Nicotine dependence, cigarettes, uncomplicated
CPT/HCPCS: 70496; 70498; 71045; 80048; 81001; 83735; 85025; 85610; 85730; 93005; 96360; 96361; 99285; Q9967; A4216

== ENCOUNTER 2025-09-03 14:07 | Inpatient (IN) | payer MEDICARE, SELFPAY ==
[2025-09-03] VITALS (9 sets, daily range): BP systolic 110–178; BP diastolic 70–88; PULSE 70–88; RESP 14–27; TEMP 36.4–36.8; O2SAT 93–98; BMI 25.0; BMI 23.8
--- NOTE | 2025-09-03 14:08 | EKG12_ITS ---
Test Reason : STROKE Blood Pressure : */* mmHG Vent. Rate : 85 BPM Atrial Rate : 85 BPM P-R Int : 184 ms QRS Dur : 64 ms QT Int : 352 ms P-R-T Axes : 57 -9 54 degrees QTcB Int : 418 ms Normal sinus rhythm Low voltage QRS Inferior infarct , age undetermined Abnormal ECG Confirmed by Alejandro Matos ([id number]), videotape editor TAZ MCNALLY ([id number]) on 09/05/2025 8:27:38 AM Referred By: Confirmed By: Alejandor Matos
--- NOTE | 2025-09-03 14:08 | CT_ITS ---
PROCEDURE: STROKE BRAIN/HEAD WITHOUT CONT 09/03/2025 REASON FOR EXAM: NEURO DEFICIT, ACUTE, STROKE SUSPECTED - RLE TECHNIQUE: Procedure Code: CTBR.ST Modality: CT Procedure: STROKE BRAIN/HEAD WITHOUT CONT Coronal and Sagittal reconstruction series were provided. One or more dose reduction techniques were used (e.g., Automated exposure control, adjustment of the mA and/or kV according to patient size, use of iterative reconstruction technique. RADIATION DOSE SUMMARY: CTDlvol: 44.99 mGy DLP: 796.11 mGycm COMPARISON: 11/20/2024 FINDINGS: BRAIN: No acute intraparenchymal hemorrhage. No mass lesion. No CT evidence for acute territorial infarct. No midline shift or extra-axial collection. Diffuse cerebral volume loss with corresponding ventricular prominence. Patchy periventricular white matter low attenuation, likely microvascular ischemic changes. Physiologic basal ganglia calcifications. VENTRICLES: No hydrocephalus. ORBITS: Intraocular lens implant on the left. The orbits are otherwise unremarkable. SINUSES AND MASTOIDS: Opacified right posterior ethmoid air cells, unchanged. The mastoid air cells are clear. SOFT TISSUES: No acute abnormality seen. BONES: No acute osseous abnormality seen. OTHER: Carotid siphon calcification bilaterally. CT/STROKE Brain/Head without Cont IMPRESSION: 1. No acute intracranial abnormality. 2. Age-related senescent changes. Reading Location: [id number]
--- NOTE | 2025-09-03 14:09 | CT_ITS ---
PROCEDURE: STROKE CTA HEAD AND NECK W/CON 09/03/2025 REASON FOR EXAM: NEURO DEFICIT, ACUTE, STROKE SUSPECTED - RLE TECHNIQUE: Procedure Code: CTCTA.ST.HN Modality: CT Procedure: STROKE CTA HEAD AND NECK W/CON Axial CTA images of the head and neck performed with intravenous contrast. MIP reconstructed images were created and reviewed. Note: Per PQRS, the description of internal carotid artery percent stenosis, including 0 percent or normal exam, is based on [place] Symptomatic Carotid Endarterectomy Trial (NASCET) criteria. CONTRAST: Isovue 370 VOLUME: 100 mL One or more dose reduction techniques were used (e.g., Automated exposure control, adjustment of the mA and/or kV according to patient size, use of iterative reconstruction technique). RADIATION DOSE SUMMARY: CTDlvol: 20.76, 17.60 mGy DLP: 665 mGycm COMPARISON: 11/20/2024 FINDINGS: CTA HEAD: INTERNAL CAROTID ARTERIES (ICA) No significant stenosis. No occlusion. No aneurysm. Minimal carotid siphon calcification bilaterally. ANTERIOR CEREBRAL ARTERIES (YOLIS) No significant stenosis. No occlusion. No aneurysm. MIDDLE CEREBRAL ARTERIES (MCA) No significant stenosis. No occlusion. No aneurysm. POSTERIOR CEREBRAL ARTERIES (MEAL PACKER) No significant stenosis. No occlusion. No aneurysm. BASILAR ARTERY No significant stenosis. No occlusion. No aneurysm. VERTEBRAL ARTERIES No significant stenosis. No dissection or occlusion. VENOUS STRUCTURES Patent. BONES No acute osseous abnormality. OTHER Stable, homogeneously enhancing 1.4 cm extra-axial dural-based mass in the left lateral frontal region. CTA NECK: COMMON CAROTID ARTERIES (CCA) No significant stenosis. No dissection or occlusion. Innominate bovine arch configuration is present. Mixed plaque in the right innominate artery. INTERNAL CAROTID ARTERIES No dissection or occlusion. Proximal internal carotid arteries demonstrate calcified plaque with moderate stenosis (approximately 50% right, 60% left). No significant interval change compared to the prior study. VERTEBRAL ARTERIES No dissection or occlusion. Right vertebral artery is dominant. Left vertebral artery is diffusely hypoplastic. Distal left vertebral artery shows new, significant stenosis (~ 55-60%) at its entry into the foramen magnum for a length of 1.0 cm, with mixed plaque. The vessel distal to this region is normal in caliber. SOFT TISSUES Multiple small (up to 0.6 cm) hypodense thyroid nodules, unchanged. No lymphadenopathy. BONES No acute osseous abnormality. CT/STROKE CTA Head AND Neck W/Con IMPRESSION: 1. No arterial occlusion, dissection or aneurysm in the head or neck. 2. Moderate stable bilateral proximal ICA stenosis due to calcified plaque (Ri ght 50%, Left 60%). 3. New significant distal left vertebral artery stenosis (55-60%) in a hypopla stic vessel with preserved flow distally. 4. 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 Reading Location: [id number]
--- OUTSIDE RECORDS SUMMARY | 2025-09-03 14:12 | XMS RPT_ITS | CCD ---
Author Organization [facility] Care Team Providers Care Editing Intern Name Role Phone ANDRZEJ PRATER Unavailable Unavailable MATHEUS FAJARDO Unavailable Unavailable ANDRZEJ PRATER Unavailable Unavailable Matheus Fajardo Unavailable Unavailable ANDRZEJ PRATER Unavailable Unavailable ANDRZEJ PRATER Unavailable Unavailable Matheus Fajardo MD Primary Care Provider Dr. Matheus Fajardo Primary Care Provider Dr. Matheus Fajardo Referring Provider Dr. Ruiz Rivera Attending Provider Matheus Fajardo MD Primary Care Provider Matheus Fajardo MD Primary Care Provider Matheus Fajardo MD Primary Care Provider Melodie CARRILLO.OUTSIDE SALES ACCOUNT REPRESENTATIVE, Cookie M Unavailable HYACINTH SON Attending Unavailable MATHEUS FAJARDO Referring Unavailable MATHEUS FAJARDO Primary Care Unavailable TRAM SANTANA Referring Unavailable MATHEUS FAJARDO Primary Care Unavailable Dr. Matheus Fajardo MD Primary Care Provider Dr. Matheus Fajardo MD Referring Provider Laura Nuñez Attending Provider Maria Luisa GROSS-CSusan Attending Provider THEA CORDOBA Referring Unavailable MATHEUS FAJARDO Primary Care Unavailable MARIBELL HILL Attending Unavailable MATHEUS FAJARDO Primary Care Unavailable ELVIRA GUNTER Referring Unavailab le FAJARDO, MATHEUS Carreno Primary Care Unavailable FAJARDO, MATHEUS Carreno Attending Unavailable FAJARDO, MATHEUS Carreno Primary Care Unavailable FAJARDO, CHENG Referring Unavailable FAJARDO, MATHEUS Carreno Primary Care Unavailable ESTHER, TRAM Attending Unavailable ESTHER, TRAM Referring Unavailable FAJARDO, MATHEUS Carreno Primary Care Unavailable FAJARDO, MATHEUS Carreno Attending Unavailable FAJARDO, MATHEUS Carreno Primary Care Unavailable FAJARDO, MATHEUS Carreno Primary Care Unavailable MOOMAW, LORAINE Attending Unavailable MOOMAW, LORAINE Referring Unavailable FAJARDO, MATHEUS Carreno Primary Care Unavailable ANDRIA BOSTON Attending Unavailable FAJARDO, MATHEUS Carreno Primary Care Unavailable FAJARDO, MATHEUS Carreno Attending Unavailable FAJARDO, MATHEUS Carreno Primary Care Unavailable FAJARDO, CHENG Referring Unavailable FAJARDO, MATHEUS Carreno Primary Care Unavailable ESTHER, TRAM Attending Unavailable FAJARDO, MATHEUS Carreno Primary Care Unavailable FAJARDO, CHENG Primary Care Unavailable THEA CORDOBA Attending Unavailable Susan Glass Attending Unavailable Susan Glass Referring Unavailable Fajardo, Matheus Primary Care Unavailable Lennie Jameson Admitting Unavailable Alvin Bell Consulting Unavailable Fajardo, Matheus Primary Care Unavailable Trino Purcell Attending Unavailable Tanika Morgan Consulting Unavailable Brandie Walsh Consulting Unavailable Laura Hernandez Consulting Unavailable Tiff Cueva Consulting Unavailable Konstantin Tong Consulting Unavailable Mandy Flores Consulting Unavailable Clement Grissom Consulting Unavailable Dave Russell Consulting Unavailable Roger Walden Consulting Unavailable Mattie Thomas Consulting Unavailable Nikhil Mallory Consulting Unavailable Ivonne Huddleston Consulting Unavailable Kristen Friedman Consulting Unavailable Cayla Trujillo Consulting UnavailTrae Causey Consulting Unavailable Carlos Parham Consulting Unavailable Víctor Dao Consulting Unavailable Saranya Jameson Consulting Unavailable Lui Justice Consulting Unavailable Lennie Jameson Consulting Unavailable Arcelia Mcmahan Attending Unavailabl e Fajardo, Matheus Primary Care Unavailable Donavon Martin Attending Unavailable Susan Glass Referring Unavailable Fajardo, Matheus Primary Care Unavailable Lennie Jameson Admitting Unavailable Alvin Bell Consulting Unavailable Fajardo, Matheus Primary Care Unavailable Trino Purcell Attending Unavailable AdeTanika nava Consulting Unavailable Hinduja, Brandie Consulting Unavailable David, Laura Consulting Unavailable Hammad, Tiff Consulting Unavailable Ran, Konstantin Consulting Unavailable SandraMandy guerra Consulting Unavailable BitClement mcmillan Consulting Unavailable Dave Russell Consulting Unavailable Roger Walden Consulting Unavailable Mattie Thomas Consulting Unavailable Nikhil Mallory Consulting Unavailable Ivonne Huddleston Consulting Unavailable Kristen Friedman Consulting Unavailable Cayla Trujillo Consulting UnavailTrae Causey Consulting Unavailable Parham, Ramveronica Consulting Unavailable FelibertoVíctor pelletier Consulting Unavailable Saranya Jameson Consulting Unavailable Lui Justice Consulting Unavailable Lennie Jameson Consulting Unavailable Trino Purcell Consulting Unavailable Lennie Jameson Attending Unavailable Susan Glass Attending Unavailable Matheus Fajardo Primary Care Unavailable Matheus Fajardo Referring Unavailable Matheus Fajardo Primary Care Unavailable Matheus Fajardo Referring Unavailable Laura Mancuso Attending Unavailable Matheus Fajardo Primary Care Unavailable Maury Melton Attending Unavailable Allergies Allergy Classification Reported Allergen(s) Allergy Type Date of Onset Reaction(s) Facility (20 sources) acetaminophen / HYDROcodone; Translations: [HYDROCODONE-ACET AMINOPHEN] Drug Allergy 5 Other: See Comments [facility] Repository (20 sources) acetaminophen / oxyCODONE; Translations: [OXYCODONE-ACETAM INOPHEN] Drug Allergy 5 Other: See Comments [facility] (20 sources) rosuvastatin; Translations: [ROSUVASTATIN] Drug Allergy 1 Other: See Comments [facility] (20 sources) simvastatin; Translations: [SIMVASTATIN] Drug Allergy 6 Other: See Comments [facility] (20 sources) Sulfonamides (Antibiotic); Translations: [SULFA (SULFONAMIDE ANTIBIOTICS)] Propensity to adverse reactions to drug (disorder) 4 Unknown [facility] (20 sources) BEE STING; Translations: [BEE STING] Propensity to adverse reactions (disorder) 2 Hives, Swelling, Shortness of Breath [facility] (20 sources) Amoxicillin; Translations: [AMOXICILLIN] Drug Allergy 1 Mental Status Change [facility] Comment on above: ER visit September 0; (2 sources) Acetaminophen Drug Allergy 2 Other [facility] (20 sources) Clavulanate; Translations: [CLAVULANIC ACID] Drug Allergy 1 Itching [facility] Comment on above: ER visit September 0; (2 sources) HYDROcodone Drug Allergy 2 Rash [facility] (3 sources) HYDROcodone; Translations: [hydrocodone bitartrate] Drug Allergy 2 Other [facility] (2 sources) Lovastatin Drug Allergy 2 Other [facility] (3 sources) Penicillins; Translations: [Penicillins] Allergy to substance 2 [facility] (3 sources) rosuvastatin; Translations: [rosuvastatin calcium] Drug Allergy 2 [facility] (1 source) Acetaminophen Drug Allergy 5 [facility] (1 source) Amoxicillin Drug Allergy 5 [facility] (1 source) Clavulanate Drug Allergy 5 [facility] (1 source) HYDROcodone Drug Allergy 5 [facility] (1 source) Lovastatin Drug Allergy 5 [facility] Repository Medications Current Medications Medication Drug Class(es) Dates Sig (Normalized) Sig (Original) aspirin 81 mg chewable tablet (20 sources) Platelet Aggregation Inhibitor, Nonsteroidal Anti-inflammatory Drug Start: 07-06-2014 take 1 tablet by mouth once daily Aspirin 81 MG tablet,chewable Active 81 mg PO DAILY@0800 July 06, 2014 12:00am Start: 06-04-2006 ASPIRIN 81 MG TAB once daily 0 06/04/2006 Active Comment on above: once daily atenolol 25 mg oral tablet (20 sources) beta-Adrenergic Christiano Start: 11-14-2024 End: 04-18-2025 take 1 tablet by mouth every other day atenolol (TENORMIN) 25 mg tablet Indications: Atherosclerosis [place] coronary artery of [place] heart without angina pectoris Take 1 tablet by mouth every other day. 45 tablet 3 04/18/2025 Active Start: 07-06-2014 End: 03-21-2025 take 1 tablet by mouth once daily atenolol (TENORMIN) 25 mg tablet Indications: Atherosclerosis [place] coronary artery of [place] heart without angina pectoris Take 1 tablet by mouth once daily. 90 tablet 3 12/30/2023 11/14/2024 Discontinued Comment on above: Take 1 tablet by jacquelin th once daily. atorvastatin 80 mg oral tablet (20 sources) HMG-CoA Reductase Inhibitor Start: End: take 1 tablet by mouth once daily at bedtime atorvastatin (LIPITOR) 80 mg tablet Indications: Mixed hyperlipidemia Take 1 tablet by mouth daily at bedtime. 90 tablet 3 07/20/2024 Active Start: 07-06-2014 End: 09-02-2019 take 1 tablet by mouth at bedtime Atorvastatin 40 MG tablet Discontinued 40 mg PO AT BEDTIME July 06, 2014 12:00am September 02, 2019 12:45pm Comment on above: Take 1 tablet by jacquelin th daily at bedtime. cholecalciferol 0.025 mg oral capsule (20 sources) Vitamin D Start: 03-21-20 take 1 capsule by mouth once daily Cholecalciferol (Vitamin D3) 25 mcg (1,000 unit) capsule Active 25 ug PO daily March 21, 2025 1:38pm Start: 11-10-2024 End: 03-21-2025 take 1 capsule by mouth twice daily Cholecalciferol (Vitamin D3) 25 mcg (1,000 unit) capsule Discontinued 25 ug PO TWICE A DAY November 10, 2024 1:00am March 21, 2025 1:39pm Start: 09-08-2019 End: 11-10-2024 take 2 tablets by mouth once daily Cholecalciferol (Vitamin D3) 2,000 unit tablet Discontinued 4000 U PO DAILY September 08, 2019 12:16pm November 10, 2024 3:26pm Start: 09-08-2019 take 4000 [IU] by mo uth once daily Cholecalciferol (Vitamin D3) Active 4000 UNIT PO DAILY September 08, 2019 12:16pm Start: 09-02-2019 End: 09-08-2019 take 1 tablet by mouth once daily Cholecalciferol (Vitamin D3) 2,000 unit tablet Discontinued 2000 U PO DAILY September 02, 2019 1:00am September 08, 2019 12:16pm Start: 11-02-2015 take 2 capsules by m outh once daily Cholecalciferol, Vitamin D3, 2,000 unit cap Indications: Vitamin D deficiency Take 2 capsules by mouth once daily. 0 11/02/2015 Active Comment on above: Take 2 capsules by m outh once daily. CPAP (20 sources) Start: 05-04-2017 CPAP CPAP mask and other supplies as needed. Mask per pt preference, tubing, filters, heated humidity, lifetime supplies. Dx: JL on CPAP. G47.33. 1 Device 05/04/2017 Active Start: 05-04-2017 CPAP CPAP mask and other supplies as needed. Mask per pt preference, tubing, filters, heated humidity, lifetime supplies. Dx: JL on CPAP. G47.33. 1 Device 0 05/04/2017 Active Comment on above: CPAP mask and other supplies as needed. Mask per pt preference, tubing, filters, heated humidity, lifetime supplies. Dx: JL on CPAP. G47.33. donepezil hydrochloride 5 mg oral tablet (20 sources) Start: End: take 1 tablet by mouth once daily donepezil (ARICEPT) 5 mg tablet Indications: 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 behavioral disturbance, psychotic disturbance, mood disturbance, or anxiety, unspecified dementia type (HCC) Take 1 tablet by mouth once daily. 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 0 06/26/2022 09/06/2022 Discontinued (Changing Therapy/Dosage Form) Start: 02-10-2022 End: 08-24-2022 take 2 capsules by mouth three times daily gabapentin (NEURONTIN) 100 mg capsule Indications: Left leg pain , Recurrent falls , Left leg weakness Take 2 capsules by mouth three times daily for 90 days. 180 capsule 2 05/26/2022 06/26/2022 Discontinued Start: 12-13-2021 End: 03-13-2022 take 1 capsule by mouth three times daily gabapentin (NEURONTIN) 100 mg capsule Indications: Left leg pain , Recurrent falls , Left leg weakness Take 1 capsule by mouth three times daily for 90 days. 90 capsule 2 12/13/2021 03/13/2022 Active Start: 07-06-2014 End: 09-02-2019 take 1 capsule by mouth three times daily at mealtime Gabapentin 100 MG capsule Discontinued 100 mg PO 3 TIMES DAILY WITH MEALS July 06, 2014 12:00am September 02, 2019 12:48pm Comment on above: Take 1 capsule by mo uth three times daily for 90 days. Take 2 capsules by m outh three times daily for 90 days. Take 3 capsules by m outh three times daily for 90 days. Take 1 capsule by mo uth three times a day for 90 days. 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 180 tablet 3 02/27/2025 02/27/2026 Active 24 hr mirabegron 50 mg extended release oral tablet (20 sources) beta3-Adrenergic Agonist Start: 5 take 1 tablet by mouth once daily mirabegron (MYRBETRIQ) 50 mg Tb24 Indications: Urgency incontinence Take 1 tablet by mouth once daily. 30 tablet 5 05/02/2025 Active Start: 05-05-2024 End: 10-31-2024 take 1 tablet by mouth once daily mirabegron (MYRBETRIQ) 50 mg Tb24 Indications: Urgency incontinence Take 1 tablet by mouth once daily. 30 tablet 5 10/31/2024 Active mupirocin 0.02 mg/mg topical ointment (2 sources) RNA Synthetase Inhibitor Antibacterial Start: 02-03-2023 End: 02-08-2023 mupirocin (BACTROBAN) 2 % ointment Apply to affected area three times daily for 5 days. 30 g 0 02/03/2023 02/08/2023 Active Comment on above: Apply to affected ar ea three times daily for 5 days. nitroglycerin 0.4 mg sublingual tablet (20 sources) Nitrate Vasodilator Start: 07-06-2014 End: 11-10-2024 nitroglycerin sublingual (NITROQUICK) 0.4 mg SL tablet Indications: Atherosclerosis of [place] coronary artery of [place] heart without angina pectoris Dissolve 1 tablet under the tongue as needed. FOR CHEST PAIN. IF NO RELIEF CALL 911 25 tablet 02/03/2023 Active Start: 07-06-2014 Nitroglycerin Active 0.4 MG SL Q5M July 06, 2014 12:00am Comment on above: Dissolve 1 tablet un mich the tongue as needed. FOR CHEST PAIN. IF NO RELIEF CALL 911 oseltamivir 6 mg/ml oral suspension (4 sources) Neuraminidase Inhibitor Start: 5 take 5 mL by mouth twice daily oseltamivir (TAMIFLU) 6 mg/mL susr oral liquid TAKE 5ML BY MOUTH TWICE DAILY FOR 4 DAYS. DISCARD THE REMAINDER 11/11/2024 Active Start: 11-11-2024 End: 12-02-2024 take 1 capsule by mouth twice daily Oseltamivir 30 mg Capsule Discontinued 30 mg PO TWICE A DAY 8 November 11, 2024 1:00am December 02, 2024 4:49pm PARoxetine hydrochloride 10 mg oral tablet (20 sources) Serotonin Reuptake Inhibitor Start: 09-18-2022 End: 06-05-2023 take 10 mg by mouth once daily Paroxetine Hcl 20 mg tablet Discontinued 10 mg PO DAILY September 18, 2022 12:07pm June 05, 2023 3:17pm Start: 04-02-2022 End: 11-10-2024 take 1 tablet by mouth once daily PARoxetine (PAXIL) 10 mg tablet Indications: Anxiety state Take 1 tablet by mouth once daily. 90 tablet 3 09/20/2024 Active Start: 12-16-2021 End: 01-09-2022 take 1 tablet by mouth once daily PARoxetine (PAXIL) 10 mg tablet Indications: Anxiety state Take 1 tablet by mouth once daily. 8 tablet 0 01/10/2022 Active Start: 07-06-2014 End: 09-18-2022 take 10 mg by mouth once daily Paroxetine Hcl 20 MG ta blet Discontinued 10 mg PO DAILY July 06, 2014 12:00am September 18, 2022 12:08pm Start: 07-06-2014 take 10 mg by mouth once daily Paroxetine Hcl Active 10 MG PO DAILY July 06, 2014 12:00am Comment on above: Take 1 tablet by jacquelin th once daily. triamcinolone acetonide 0.055 mg/actuat metered dose nasal spray (20 sources) Corticosteroid Start: 11-10-19 take 55 ug nasal route once daily as needed Triamcinolone Acetonide (24 Hour Nasal Allergy) 55 mcg aerosol,spray Active 2 NMA INTRANASAL DAILY as needed for congestion November 10, 2024 1:00am administer into each nostril Start: 06-05-2023 End: 11-10-2024 Triamcinolone Acetonide (Iftikhar acort) 55 mcg aerosol,spray Discontinued 2 NMA INTRANASAL DAILY as needed June 05, 2023 3:17pm November 10, 2024 2:21pm Start: 09-02-2019 End: 06-05-2023 Triamcinolone Acetonide (Iftikhar acort) 55 mcg aerosol,spray Discontinued 2 NMA INTRANASAL DAILY September 02, 2019 1:00am June 05, 2023 3:17pm Start: 09-02-2019 Triamcinolone Acetonide (Nasacort) 55 mcg aerosol,spray Active 2 SPRAY INTRANASAL DAILY September 02, 2019 1:00am take 2 spray(s) by i nhalation once daily triamcinolone acetonide (NASACORT AQ) 55 mcg nasal inhaler Indications: Chronic rhinitis Use 2 Sprays in the nose once daily. Active Comment on above: Use 2 Sprays in the nose once daily. Completed/Discontinued Medications Medication Drug Class(es) Dates Sig (Normalized) Sig (Original) acetaminophen 325 mg / oxyCODONE hydrochloride 5 mg oral tablet (4 sources) Opioid Agonist Start: 07-08-2021 End: 03-27-2022 Oxycodone-Acetamino phen (Percocet) 5-325 mg tablet Discontinued 1 {tbl} PO Q8H as needed for pain 10 July 08, 2021 March 27, 2022 10:31am Start: 07-06-2014 End: 09-02-2019 Oxycodone-Acetaminophen 1 TA BLET tablet Discontinued 1 {tbl} PO EVERY 6 HOURS NEEDED as needed for Pain July 06, 2014 12:00am September 02, 2019 12:48pm Start: 07-06-2014 End: 09-02-2019 take 1 tablet by mouth every six hours as needed Oxycodone-Acetaminophen Discontinued 1 TABLET PO EVERY 6 HOURS NEEDED July 06, 2014 12:00am September 02, 2019 12:48pm [id number] 200 actuat albuterol 0.09 mg/actuat metered dose inhaler (7 sources) beta2-Adrenergic Agonist Start: 01-21-2025 End: 04-04-2025 take 2 puff(s) by inhalation every four hours as needed for wheezing albuterol HFA (PROVENTIL HFA, VENTOLIN HFA) 90 mcg/actuation inhaler Inhale 2 puffs as instructed every 4 hours as needed for wheezing/shortness of breath. 1 each 1 01/21/2025 04/04/2025 Discontinued (Other) benzonatate 100 mg oral capsule (9 sources) Non-narcotic Antitussive Start: 01-18-2025 End: 04-04-2025 take 1 capsule by mouth three times daily as needed for cough benzonatate (TESSALON PERLE) 100 mg capsule Indications: Acute cough Take 1 capsule by mouth three times a day as needed for cough for up to 12 doses. 12 capsule 01/18/2025 04/04/2025 Discontinued (Other) clindamycin 300 mg oral capsule (2 sources) Lincosamide Antibacterial Start: 01-26-2021 End: 03-27-2022 take 1 capsule by mouth every six hours Clindamycin Hcl (Cleocin Hcl) 300 MG capsule Discontinued 300 mg PO EVERY 6 HOURS 24 04January 26, 2021 12:00am March 27, 2022 10:30am doxycycline hyclate 100 mg oral capsule (1 source) Tetracycline-class Drug Start: 11-20-2024 End: 12-02-2024 take 1 capsule by mouth twice daily Doxycycline Hyclate 100 mg capsule Discontinued 100 mg PO TWICE A DAY 17 07November 20, 2024 1:00am December 02, 2024 4:48pm estradiol 0.1 mg/ml vaginal cream (11 sources) Estrogen Start: 09-02-2019 End: 11-29-2020 Estradiol (Estrace) 0.01 % (0.1 mg/gram) cream Discontinued 1 g VAGINAL .3XW September 02, 2019 1:00am November 29, 2020 10:02am Start: 10-14-2017 End: 03-25-2022 estradiol (ESTRACE) 0.01 % ( 0.1 mg/gram) vaginal cream Use 1 Applicator vaginally 3 times a WEEK. Per Dr. Waters 0 10/14/2017 03/25/2022 Discontinued Comment on above: Use 1 Applicator vag inally 3 times a WEEK. Per Dr. Waters fexofenadine hydrochloride 180 mg oral tablet (2 sources) Histamine-1 Receptor Antagonist Start: End: Fexofenadine 180 MG tablet Discontinued 180 mg PO July 06, 2014 12:00am September 02, 2019 12:48pm 60 actuat fluticasone propionate 0.05 mg/actuat dry powder inhaler (2 sources) Corticosteroid Start: End: take 50 ug by inhalation twice daily Fluticasone Propionate 50 MCG blister with device Discontinued 50 ug INHALATION TWICE A DAY July 06, 2014 12:00am September 02, 2019 12:48pm ipratropium bromide 0.042 mg/actuat metered dose nasal spray (2 sources) Anticholinergic Start: 014 End: 019 Ipratropium [place] 1 SPRAY spray,non-aerosol Discontinued 1 NMA NASAL July 06, 2014 12:00am September 02, 2019 12:48pm Start: 07-06-2014 End: 09-02-2019 Ipratropium [place] Disconti nued 1 SPRAY NASAL July 06, 2014 12:00am September 02, 2019 12:48pm Multivitamin With Folic Acid (1 source) Start: 07-06-2014 End: 09-02-2019 take 1 tablet by mouth once daily Multivitamin With Folic Acid Discontinued 1 TABLET PO DAILY July 06, 2014 12:00am September 02, 2019 12:48pm Multivitamin With Folic Acid 1 TABLET tablet (1 source) Start: 07-06-2014 End: 09-02-2019 take 1 tablet by mouth once daily Multivitamin With Folic Acid 1 TABLET tablet Discontinued 1 {tbl} PO DAILY July 06, 2014 12:00am September 02, 2019 12:48pm nabumetone 750 mg oral tablet (2 sources) Nonsteroidal Anti-inflammatory Drug Start: 07-06-2014 End: 09-02-2019 take 1 tablet by mouth twice daily Nabumetone 750 MG tablet Discontinued 750 mg PO TWICE A DAY July 06, 2014 12:00am September 02, 2019 12:48pm omeprazole 40 mg delayed release oral capsule (17 sources) Proton Pump Inhibitor Start: 10-15-2023 End: 08-22-2024 take 1 capsule by mouth once daily omeprazole (PRILOSEC) 40 mg capsule Indications: Gastroesophageal reflux disease without esophagitis Take 1 capsule by mouth once daily. 90 capsule 3 10/15/2023 08/22/2024 Discontinued Start: 08-03-2023 take 1 capsule by mo [facility] once daily omeprazole (PRILOSEC) 40 mg capsule Take 1 capsule by mouth once daily. 90 capsule 0 08/03/2023 Active Start: 07-06-2014 End: 03-09-2020 take 1 capsule by mouth once daily Omeprazole 20 MG capsule Discontinued 20 mg PO DAILY July 06, 2014 12:00am March 09, 2020 9:29am Comment on above: Take 1 capsule by mo uth once daily. 24 hr oxybutynin chloride 10 mg extended release oral tablet (20 sources) Cholinergic Muscarinic Antagonist Start: 3 End: take 2 tablets by mouth once daily oxybutynin ER (DITROPAN XL) 10 mg 24 hr tablet Indications: Mixed incontinence Take 2 tablets by mouth once daily. 180 tablet 3 07/07/2023 05/05/2024 Discontinued (Clinical Decision) Start: 01-26-2021 End: 11-10-2024 take 1 tablet by mouth once daily oxybutynin ER (DITROPAN XL) 10 mg 24 hr tablet Indications: Urgency incontinence , Mixed incontinence Take 1 tablet by mouth once daily. 90 tablet 3 02/11/2023 Active Comment on above: Take 1 tablet by jacquelin once daily. Take 2 tablets by mo uth once daily. Problems Active Problems Problem Classification Problem Date Documented Date Episodic/Chronic Anxiety disorders (20 sources) Anxiety state; Translations: [Generalized anxiety disorder] Onset: 07-07-2005 11-02-2015 Chronic Aortic; peripheral; and visceral artery aneurysms (5 sources) Abdominal aortic aneurysm; Translations: [Abdominal aortic aneurysm, without rupture] 02-21-2022 Chronic Coronary atherosclerosis and other heart disease (20 sources) Atherosclerotic heart disease of [place] coronary artery without angina pectoris; Translations: [Coronary atherosclerosis] Onset: 07-07-2005 Resolved: 05-04-2017 11-03-2015 Chronic Delirium, dementia, and amnestic and other cognitive disorders (20 sources) Dementia; Translations: [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 behavioral disturbance, psychotic disturbance, mood disturbance, or anxiety, unspecified dementia type (HCC)] Onset: 10-15-2023 04-27-2024 Chronic Diabetes mellitus with complications (20 sources) 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; 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] Onset: 05-04-2017 Chronic Diabetes mellitus without complication (2 sources) Type 2 diabetes mellitus; Translations: [Type 2 diabetes mellitus without complications] 09-02-2019 Chronic Disorders of lipid metabolism (20 sources) Mixed hyperlipidemia; Translations: [Mixed hyperlipidemia] Onset: 07-07-2005 11-02-2015 Chronic Disorders of teeth and jaw (2 sources) Dental abscess; Translations: [Periapical abscess without sinus] 01-27-2021 Episodic E Codes: Adverse effects of medical drugs (2 sources) Adverse reaction to drug; Translations: [Adverse effect of unspecified drugs, medicaments and biological substances, initial encounter] 10-20-2019 Episodic E Codes: Fall (7 sources) Accidental fall ; Translations: [Unspecified fall, initial encounter] Onset: 03-14-2025 03-14-2025 Episodic Epilepsy; convulsions (1 source) Epilepsy, unspecified, not intractable, without status epilepticus; Translations: [Epilepsy, unspecified, not intractable, without status epilepticus] Onset: 06-01-2025 Chronic Epilepsy; convulsions (4 sources) Neurological finding; Translations: [Unspecified convulsions] Onset: 02-27-2025 02-27-2025 Episodic Esophageal disorders (20 sources) Gastroesophageal reflux disease; Translations: [Gastro-esophageal reflux disease without esophagitis] Onset: 07-07-2005 08-06-2010 Chronic Essential hypertension (20 sources) Essential (primary) hypertension; Translations: [Essential hypertension] Onset: 06-10-2016 06-10-2016 Chronic Fever of unknown origin (2 sources) Pyrexia of unknown origin; Translations: [Fever, unspecified] 01-27-2021 Episodic Genitourinary symptoms and ill-defined conditions (20 sources) Urge incontinence of urine; Translations: [Urge incontinence] Onset: 05-10-2018 05-10-2018 Chronic Heart valve disorders (20 sources) Aortic valve sclerosis; Translations: [Other nonrheumatic aortic valve disorders] Onset: 04-02-2012 04-02-2012 Chronic Immunizations and screening for infectious disease (2 sources) Needs influenza immunization; Translations: [Encounter for immunization] Episodic Intracranial injury (2 sources) Concussion injury of body structure; Translations: [Concussion with loss of consciousness of unspecified duration, initial encounter] 08-03-2021 Episodic Lymphadenitis (2 sources) Anterior cervical lymphadenopathy; Translations: [Localized enlarged lymph nodes] Episodic Malaise and fatigue (3 sources) Asthenia; Translations: [Weakness] Onset: 11-11-2024 11-10-2024 Episodic Neoplasms of unspecified nature or uncertain behavior (1 source) Neoplasm of meninges 11-14-2024 Episodic Nutritional deficiencies (20 sources) Vitamin D deficiency; Translations: [Vitamin D deficiency, unspecified] Onset: 05-02-2015 11-02-2015 Chronic Occlusion or stenosis of precerebral arteries (20 sources) Bilateral stenosis of carotid arteries; Translations: [Occlusion and stenosis of bilateral carotid arteries] Onset: 04-02-2012 06-24-2022 Chronic Open wounds of extremities (1 source) Open wound of right hand; Translations: [Laceration without foreign body of right hand, initial encounter] 03-14-2025 Episodic Osteoporosis (20 sources) Postmenopausal osteoporosis; Translations: [Age-related osteoporosis without current pathological fracture] Onset: 09-14-2012 09-14-2012 Chronic Other and unspecified benign neoplasm (14 sources) Neoplasm of meninges; Translations: [Benign neoplasm of meninges, unspecified] Onset: 11-14-2024 11-14-2024 Chronic Other and unspecified benign neoplasm (1 source) Benign neoplasm of cerebral meninges; Translations: [Benign neoplasm of cerebral meninges] Onset: 06-01-2025 Chronic Other circulatory disease (1 source) Disorder of arteries and arterioles, unspecified; Translations: [Unspecified disorders of arteries and arterioles] Chronic Other connective tissue disease (4 sources) Pain in left lower limb; Translations: [Pain in left leg] Episodic Other connective tissue disease (3 sources) Recurrent falls ; Translations: [Repeated falls] Episodic Other connective tissue disease (4 sources) Weakness of left leg; Translations: [Other symptoms and signs involving the musculoskeletal system] Episodic Other connective tissue disease (1 source) Weakness of face muscles; Translations: [Facial weakness] 11-19-2024 Episodic Other ear and sense organ disorders (1 source) Cellulitis of head; Translations: [Cellulitis of left external ear] Episodic Other injuries and conditions due to external causes (2 sources) Closed injury of head; Translations: [Unspecified injury of head, initial encounter] 08-03-2021 Episodic Other injuries and conditions due to external causes (1 source) At risk for falls ; Translations: [History of falling] Episodic Other lower respiratory disease (1 source) Cough; Translations: [Acute cough] 01-18-2025 Episodic Other lower respiratory disease (1 source) Hypoxia; Translations: [Hypoxemia] 11-10-2024 Episodic Other nervous system disorders (3 sources) Polyneuropathy; Translations: [Other specified polyneuropathies] 04-27-2024 Chronic Other nervous system disorders (1 source) Other specified polyneuropathies; Translations: [Other polyneuropathy] Onset: 02-27-2025 Chronic Other nervous system disorders (3 sources) Sensory ataxia ; Translations: [Other lack of coordination] 04-27-2024 Episodic Other nervous system disorders (1 source) Dysarthria; Translations: [Dysarthria and anarthria] 11-10-2024 Episodic Other nervous system disorders (1 source) Other lack of coordination; Translations: [Sensory ataxia] Onset: 02-27-2025 Episodic Other upper respiratory disease (20 sources) Chronic rhinitis; Translations: [Chronic rhinitis] Onset: 07-07-2005 08-06-2010 Chronic Parkinson`s disease (2 sources) Parkinson`s disease; Translations: [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 (HCC)] Onset: 08-22-2024 Peripheral and visceral atherosclerosis (20 sources) Stenosis of abdominal aorta; Translations: [Atherosclerosis of aorta] Onset: 02-27-2004 Chronic Comment on above: Stent of the infrare nal aorta using a [id number] smart stent (70% luminal narrowing reduced to less than 20% 03/11/04 Residual codes; unclassified (20 sources) Obstructive sleep apnea syndrome; Translations: [Obstructive sleep apnea (adult) (pediatric)] Onset: 10-16-2011 Resolved: 05-22-2015 09-23-2021 Chronic Residual codes; unclassified (1 source) Obstructive sleep apnea (adult) (pediatric); Translations: [JL on CPAP] Onset: 09-23-2021 Chronic Residual codes; unclassified (2 sources) Tobacco user; Translations: [Tobacco use] 09-02-2019 Episodic Residual codes; unclassified (1 source) Not for resuscitation; Translations: [Do not resuscitate] 05-18-2024 Episodic Residual codes; unclassified (1 source) Tobacco use; Translations: [Tobacco use] Onset: 06-01-2025 Episodic Spondylosis; intervertebral disc disorders; other back problems (20 sources) Degeneration of lumbar intervertebral disc; Translations: [Other intervertebral disc degeneration, lumbar region] Onset: 04-19-2014 11-03-2016 Chronic Substance-related disorders (20 sources) Tobacco user; Translations: [Nicotine dependence, unspecified, uncomplicated] Onset: 06-08-2006 08-06-2010 Chronic Superficial injury; contusion (11 sources) Contusion of knee; Translations: [Contusion of unspecified knee, initial encounter] Onset: 03-14-2025 03-14-2025 Episodic Transient cerebral ischemia (17 sources) Transient cerebral ischemia; Translations: [Transient cerebral ischemic attack, unspecified] Onset: 11-14-2024 11-14-2024 Chronic Unclassified (20 sources) Parkinson's disease; Translations: [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 (HCC)] Onset: 08-22-2024 04-27-2024 Chronic Unclassified (2 sources) Parkinsonism; Translations: [Parkinsonism, unspecified Parkinsonism type (HCC)] 08-24-2024 Chronic Unclassified (1 source) Unknown / UNK(Unknown) Onset: 06-10-2016 Unclassified (3 sources) 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 behavioral disturbance, psychotic disturbance, mood disturbance, or anxiety, unspecified dementia type (HCC); Translations: [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 behavioral disturbance, psychotic disturbance, mood disturbance, or anxiety, unspecified dementia type (HCC)] Onset: 08-22-2024 Unclassified (1 source) Abdominal aortic aneurysm (AAA) without rupture, unspecified part; Translations: [Abdominal aortic aneurysm (AAA) without rupture, unspecified part] Onset: 04-04-2025 Unclassified (1 source) Subacute cough; Translations: [Subacute cough] Onset: 01-21-2025 Unclassified (1 source) Acute cough; Translations: [Acute cough] Onset: 01-18-2025 Past or Other Problems Problem Classification Problem Date Documented Da te Episodic/Chronic Abdominal hernia (20 sources) Diaphragmatic hernia; Translations: [Diaphragmatic hernia without obstruction or gangrene] Onset: 09-30-2007 Resolved: 01-29-2009 01-29-2009 Episodic Acute bronchitis (1 source) Acute bronchitis, unspecified; Translations: [Acute bronchitis, unspecified organism] Onset: 01-21-2025 Episodic Calculus of urinary tract (20 sources) Ureteric stone; Translations: [Calculus of ureter] Onset: 11-12-2010 Resolved: 02-12-2011 09-23-2021 Episodic Cardiac and circulatory congenital anomalies (20 sources) Atresia and stenosis of aorta; Translations: [Other atresia of aorta] Onset: 07-07-2005 Resolved: 11-03-2015 11-03-2015 Chronic Coronary atherosclerosis and other heart disease (5 sources) Stented coronary artery; Translations: [Presence of coronary angioplasty implant and graft] Onset: 11-27-2003 Episodic Comment on above: PTCA 1988, PCI/RAFAEL t o prox-mid RCA 12/18/03 Diabetes mellitus without complication (20 sources) Prediabetes; Translations: [Prediabetes] Onset: 05-18-2024 Resolved: 05-18-2024 05-18-2024 Episodic E Codes: Fall (2 sources) Fall 03-14-2025 Esophageal disorders (20 sources) Esophagitis; Translations: [Esophagitis, unspecified] Onset: 09-30-2007 Resolved: 11-03-2015 11-03-2015 Episodic Gastritis and duodenitis (20 sources) Acute gastritis; Translations: [Acute gastritis without bleeding] Onset: 09-30-2007 Resolved: 01-29-2009 01-29-2009 Episodic Genitourinary symptoms and ill-defined conditions (20 sources) Blood in urine; Translations: [Hematuria] Onset: 02-17-2008 Resolved: 06-11-2020 02-12-2011 Episodic Influenza (3 sources) Influenza; Translations: [Influenza due to unidentified influenza virus with other respiratory manifestations] Onset: 11-11-2024 11-14-2024 Episodic Menopausal disorders (20 sources) Atrophic vaginitis; Translations: [Postmenopausal atrophic vaginitis] Onset: 04-20-2006 Resolved: 11-03-2015 11-03-2015 Chronic Nutritional deficiencies (20 sources) Vitamin B-complex deficiency ; Translations: [Deficiency of other specified B group vitamins] Onset: 03-29-2008 Resolved: 02-12-2011 02-12-2011 Episodic Other and unspecified benign neoplasm (20 sources) Benign neoplasm of colon; Translations: [Benign neoplasm of colon, unspecified] Onset: 08-05-2005 Resolved: 08-22-2024 08-06-2010 Episodic Other and unspecified benign neoplasm (20 sources) History of polyp of colon; Translations: [Personal history of colonic polyps] Onset: 06-07-2012 Resolved: 11-03-2016 11-03-2016 Episodic Other circulatory disease (20 sources) Disorder of carotid artery; Translations: [Disorder of arteries and arterioles, unspecified] Onset: 04-02-2012 Resolved: 11-14-2024 04-02-2012 Chronic Other connective tissue disease (20 sources) Cramp in lower limb; Translations: [Sleep related leg cramps] Onset: 05-19-2019 Resolved: 02-18-2024 05-19-2019 Chronic Other connective tissue disease (1 source) Facial weakness; Translations: [Facial weakness] Onset: 11-11-2024 Episodic Other diseases of veins and lymphatics (20 sources) Venous insufficiency of leg; Translations: [Venous insufficiency (chronic) (peripheral)] Onset: 11-03-2015 Resolved: 02-18-2024 11-03-2015 Episodic Other gastrointestinal disorders (1 source) Diarrhea, unspecified; Translations: [Diarrhea, unspecified type] Onset: 01-21-2025 Episodic Other hematologic conditions (20 sources) Erythrocytosis; Translations: [Secondary polycythemia] Onset: 10-30-2017 01-07-2021 Episodic Other hematologic conditions (1 source) Secondary polycythemia; Translations: [Polycythemia] Onset: 01-07-2021 Episodic Other hereditary and degenerative nervous system conditions (20 sources) Essential tremor; Translations: [Essential tremor] Onset: 06-11-2020 Resolved: 08-22-2024 06-11-2020 Chronic Other lower respiratory disease (1 source) Wheezing; Translations: [Wheezing] Onset: 01-21-2025 Episodic Other lower respiratory disease (1 source) Hypoxemia; Translations: [Hypoxemia] Onset: 11-11-2024 Episodic Other nervous system disorders (20 sources) Abnormal gait; Translations: [Unspecified abnormalities of gait and mobility] Onset: 06-11-2020 06-11-2020 Episodic Other nervous system disorders (14 sources) Impaired cognition; Translations: [Other symptoms and signs involving cognitive functions and awareness] Onset: 10-15-2023 10-15-2023 Episodic Other nervous system disorders (1 source) Unspecified abnormalities of gait and mobility; Translations: [Gait abnormality] Onset: 06-11-2020 Episodic Other nervous system disorders (1 source) Slurred speech; Translations: [Slurred speech] Onset: 11-24-2024 Episodic Other nervous system disorders (1 source) Dysarthria and anarthria; Translations: [Dysarthria and anarthria] Onset: 11-11-2024 Episodic Other non-traumatic joint disorders (20 sources) Pain in lower limb; Translations: [Pain in unspecified knee] Onset: 05-28-2009 Resolved: 11-03-2015 11-03-2015 Episodic Other skin disorders (20 sources) Primary focal hyperhidrosis; Translations: [Primary focal hyperhidrosis, unspecified] Onset: 05-19-2019 Resolved: 02-18-2024 05-19-2019 Episodic Other skin disorders (20 sources) Sebaceous cyst of skin; Translations: [Sebaceous cyst] Onset: 01-18-2007 Resolved: 01-29-2009 01-29-2009 Episodic Unclassified (2 sources) Contusion of right hand 03-14-2025 Urinary tract infections (20 sources) Urethritis; Translations: [Other urethritis] Onset: 03-22-2008 Resolved: 05-09-2013 02-12-2011 Episodic Results Test Name Value Interpretation Reference Range Facility [facility] 05-23-2025 [facility] Telephone ([facility]) MATTIE HERRON ([id number]) 1940 F Date Time Provider Department 05/23/25 MATHEUS FAJARDO INT[facility] During your visit today, we recorded the following information about you: Liza Delarosa 05/23/2025 3:58 PM Signed Patient's calling to request medication. gabapentin (NEURONTIN) 300 mg capsule () Patient last seen: 02-23-25 Future visit scheduled: yes PHARMACY: Vivian Lanier LPN 05/23/2025 4:11 PM Signed Patient has been identified by name and date of : Yes Patient phones for refill(s): Requested Prescriptions Pending Prescriptions Disp Refills gabapentin (NEURONTIN) 300 mg capsule 90 capsule 5 Sig: Take 1 capsule by mouth three times a day for 180 days. Date of last office visit in primary care: 02/23/2025 Date of next office visit in primary care: 08/22/2025 Please advise. Thank you. Vivian Samuels LPN. Matheus Fajardo MD 05/23/2025 7:04 PM Signed The following approved medication requests have been transmitted electronically. Requested Prescriptions Signed Prescriptions Disp Refills gabapentin (NEURONTIN) 300 mg capsule 90 capsule 5 Sig: Take 1 capsule by mouth three times a day for 180 days. Authorizing Provider: MATHEUS FAJARDO MD Allergies As of Date: 05/23/2025 Noted Allergy Reaction AMOXICILLIN 02/27/2021 1 - Mental Status Change BEE STING 06/21/2012 4 - Hives 7 - Swelling 12 - Shortness of Breath PERCOCET (OXYCODONE-ACETAMINOPHEN) 015 14 - Other: See Comments Comments: Patient passed out ROSUVASTATIN 09/15/2011 14 - Other: See Comments Comments: Leg cramps. 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 - mirabegron (MYRBETRIQ) 50 mg Tb24 Take 1 tablet by mouth once daily. - atenolol (TENORMIN) 25 mg tablet Take 1 tablet by mouth every other day. - levETIRAcetam (KEPPRA) 500 mg tablet Take 1 tablet by mouth two times a day. - donepezil (ARICEPT) 5 mg tablet Take 1 tablet by mouth once daily. - PARoxetine (PAXIL) 10 mg tablet Take 1 tablet by mouth once daily. - atorvastatin (LIPITOR) 80 mg tablet Take 1 tablet by mouth daily at bedtime. - nitroglycerin sublingual (NITROQUICK) 0.4 mg SL tablet Dissolve 1 tablet under the tongue as needed. FOR CHEST PAIN. IF NO RELIEF CALL 911 - triamcinolone acetonide (NASACORT AQ) 55 mcg nasal inhaler Use 2 Sprays in the nose once daily. - CPAP CPAP mask and other supplies as needed. Mask per pt preference, tubing, filters, heated humidity, lifetime supplies. Dx: JL on CPAP. G47.33. - Cholecalciferol, Vitamin D3, 2,000 unit cap Take 2 capsules by mouth once daily. - ASPIRIN 81 MG TAB once daily Problem List As Of Date 05/23/2025 Noted Resolved Coronary atherosclerosis [I25.10] 07/07/2005 Mixed hyperlipidemia [E78.2] 07/07/2005 AORTIC ATRESIA/STENOSIS [Q25.29, Q25.1] 07/07/2005 11/03/2015 ESOPHAGEAL REFLUX [K21.9] 07/07/2005 Anxiety state [F41.1] 07/07/2005 CHRONIC RHINITIS [J31.0] 07/07/2005 Benign neoplasm of colon [D12.6] 08/05/2005 08/22/2024 Postmenopausal atrophic vaginitis [N95.2] 04/20/2006 11/03/2015 TOBACCO USE DISORDER [F17.200] 06/08/2006 SEBACEOUS CYST [L72.3] 01/18/2007 01/29/2009 Esophagitis, unspecified [K20.90] 09/30/2007 11/03/2015 DIAPHRAGMATIC HERNIA [K44.9] 09/30/2007 01/29/2009 ACUTE GASTRITIS W/O HEMORRHAGE [K29.00] 09/30/2007 01/29/2009 Hematuria [599.7] 02/17/2008 02/12/2011 Urethritis, unspecified [N34.2] 03/22/2008 02/12/2011 Trigonitis [N30.30] 03/22/2008 05/09/2013 Other B-complex deficiencies [E53.8] 03/29/2008 02/12/2011 Pain in joint, lower leg [M25.569] 05/28/2009 11/03/2015 Ureterolithiasis [N20.1] 11/12/2010 02/12/2011 JL (obstructive sleep apnea) [G47.33] 10/16/2011 05/22/2015 Aortic valve sclerosis [I35.8] 04/02/2012 Bilateral carotid artery stenosis [I65.23] 04/02/2012 Personal history of colonic polyps [Z86.0100] 06/07/2012 11/03/2016 Osteoporosis, 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 Normal [facility] CNOVon 04-04-2025 CNOV Office Visit ([facility]ARD[facility] ) MATTIE HERRON ([id number]) 1940 F Date Time Provider Department 04/04/25 2:40 PM MARIBELL HILL During your visit today, we recorded the following information about you: Pulse Blood pressure Weight 61/minute 112/70 71.9 kg Maribell Hill MD 04/04/2025 5:42 PM Signed [facility] OUTPATIENT VISIT DATE 04/04/2025 OUTPATIENT VISIT TYPE ESTABLISHED PRIMARY CARE PHYSICIAN: Matheus Fajardo [address] [place] [address] Patient is being seen at the request of self for follow up HISTORY OF PRESENT ILLNESS: Ms. Herron is a 85 year old female, hx of CAD s/p remote balloon angioplasty 1988 followed by PCI to RCA 2003, mid to mod per 2021 TTE, Hypertension, HLD, JL on CPAP, AAA s/p stent 2004, WILILE with 20-39% BRAYAN and 60-79% LICA stenosis per carotid artery duplex 2018, hx of tobacco use, PVD presents for f/u. She is accompanied by her . Previously seen by Dr. Gunter 05/18/2024. She denies chest pain, SOB, palpitations, orthopnea, PND, leg swelling, lightheadedness, syncope. Her states that she smokes 1/2 PPD. Recently she was reported to have TIAs in 10/2024. She is wearing a 2 week monitor. Her states that she was told she had 60% blockage in her neck artery. TTE 03/2022: EF 65%, 1+MR, mild TR, mild to mod AAA US 08/2019: Max Ao dimensions 1.7 x 1.7 cm proximal abdominal aorta. Increased flow velocities noted in the distal abdominal aorta consistent with arterial occlusive disease. Mild increased velocities right common iliac artery. 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 [place], RCA stent November 2003. Coronary atherosclerosis of unspecified type of vessel, [place] or graft 07/07/2005 [place], PTCA 1988. [place], RCA stent November 2003. DDD (degenerative disc disease), lumbar 04/19/2014 Dr. 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 Galen Waters. 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 (HCC) 08/22/2024 Polycythemia 10/30/2017 Postmenopausal atrophic vaginitis Tremor, essential 06/11/2020 Type II or unspecified type diabetes mellitus without mention of complication, not stated as uncontrolled 10/01/2006 Ureterolithiasis 11/12/2010 Venous insufficiency of both lower extremities 11/03/2015 PAST SURGICAL HISTORY Procedure Laterality Date BX BREAST PERC VACUUM/ROTN 09/05/08 RIGHT BREAST COLONOSCOPY FLX DX W/COLLJ SPEC WHEN PFRMD 08/05/05 Colonoscopy COLONOSCOPY FLX DX W/COLLJ SPEC WHEN PFRMD 10/06/2006 Colonoscopy COLONOSCOPY FLX DX W/COLLJ SPEC WHEN PFRMD 06/07/2012 Colonoscopy COLONOSCOPY FLX DX W/COLLJ SPEC WHEN PFRMD 06/30/2013 Colonoscopy COLSC FLX W/RMVL OF TUMOR POLYP LESION SNARE TQ 05/22/2017 multiple [id number] follow-up CORONARY ENDARTERCOMY OPEN ANY METHOD 1989 Angioplasty CORRECT BUNION,SIMPLE 09/08/2008 hammertoe CYSTOSCOPY 10/26/2017 EGD TRANSORAL BIOPSY SINGLE/MULTIPLE 09/30/07 EXC BREAST LES PREOP PLMT RAD MARKER OPEN 1 LES 09/05/08 INSERT INTRACORONARY STENT 11/2003 RIGHT CORONARY STENT INSERT INTRACORONARY STENT 02/2004 STENT INFRARENAL ABDOMINAL AORTA PAST SURGICAL HISTORY OF 08/30/2012 Right thumb, wrist surgery PAST SURGICAL HISTORY OF Left 02/15/2018 Left cataract removed STEREOTACTIC CORE BIOPSY 09/05/08 Social History Tobacco Use Smoking status: Every Day Current packs/day: 0.66 Average packs/day: 0.7 packs/day for 58.9 years (38.8 ttl pk-yrs) Types: Cigarettes Start date: 06/30/1966 Smokeless tobacco: Never Vaping Use Vaping status: Never Used Substance Use Topics Alcohol use: No Drug use: No FAMILY HISTORY Problem Relation Age of Onset (more content not included)... Normal [facility]04[facility]20[facility] MATTIE HERRON ([id number]) 1940 F Date Time Provider Department 04/04/25 MARIBELL HILL During your visit today, we recorded the following information about you: Maribell Hill MD 04/04/2025 5:32 PM Signed Please inform Ms. Herron that there was no outside echocardiogram seen from this year.Order has been placed for her to have it scheduled in May 2025. Please inform her to contact scheduling to arrange this Aguila Schreiber RN 04/05/2025 9:34 AM Signed Called pt, spoke to spouse informed him ECHO order has been placed and can be scheduled for May JENAE 04/05/25 Dr. Hill 2. Mitral regurgitation and aortic stenosis - ICD9: 396.2, ICD10: I08.0 TTE 03/2022: EF 65%, 1+MR, mild TR, mild to mod - Discussed repeating echo if no outside echo is seen. Allergies As of Date: 04/04/2025 Noted Allergy Reaction AMOXICILLIN 02/27/2021 1 - Mental Status Change BEE STING 06/21/2012 4 - Hives 7 - Swelling 12 - Shortness of Breath PERCOCET (OXYCODONE-ACETAMINOPHEN) 015 14 - Other: See Comments Comments: Patient passed out ROSUVASTATIN 09/15/2011 14 - Other: See Comments Comments: Leg cramps. SULFA (SULFONAMIDE ANTIBIOTICS) 01/04/2004 VICODIN (HYDROCODONE-ACETAMINOPHE*2014 14 - Other: See Comments Comments: Patient passed out from medication ZOCOR (SIMVASTATIN) 04/09/2006 14 - Other: See Comments CLAVULANIC ACID 01/26/2021 9 - Itching Date Reviewed: 04/04/2025 Reviewed by: Yolie Howard MA - Fully Assessed Primary Visit Diagnosis:Aortic valve stenosis, etiology of cardiac valve disease unspecified [I35.0] Order(s):ECHO [219027] Order #: [id number]: 1 FUTURE Prescriptions as of 04/05/2025 - levETIRAcetam (KEPPRA) 500 mg tablet Take 1 tablet by mouth two times a day. - donepezil (ARICEPT) 5 mg tablet Take 1 tablet by mouth once daily. - atenolol (TENORMIN) 25 mg tablet Take 1 tablet by mouth every other day. - gabapentin (NEURONTIN) 300 mg capsule Take 1 capsule by mouth three times a day for 180 days. - mirabegron (MYRBETRIQ) 50 mg Tb24 Take 1 tablet by mouth once daily. - PARoxetine (PAXIL) 10 mg tablet Take 1 tablet by mouth once daily. - atorvastatin (LIPITOR) 80 mg tablet Take 1 tablet by mouth daily at bedtime. - nitroglycerin sublingual (NITROQUICK) 0.4 mg SL tablet Dissolve 1 tablet under the tongue as needed. FOR CHEST PAIN. IF NO RELIEF CALL 911 - triamcinolone acetonide (NASACORT AQ) 55 mcg nasal inhaler Use 2 Sprays in the nose once daily. - CPAP CPAP mask and other supplies as needed. Mask per pt preference, tubing, filters, heated humidity, lifetime supplies. Dx: JL on CPAP. G47.33. - Cholecalciferol, Vitamin D3, 2,000 unit cap Take 2 capsules by mouth once daily. - ASPIRIN 81 MG TAB once daily Problem List As Of Date 04/04/2025 Noted Resolved Coronary atherosclerosis [I25.10] 07/07/2005 Mixed hyperlipidemia [E78.2] 07/07/2005 AORTIC ATRESIA/STENOSIS [Q25.29, Q25.1] 07/07/2005 11/03/2015 ESOPHAGEAL REFLUX [K21.9] 07/07/2005 Anxiety state [F41.1] 07/07/2005 CHRONIC RHINITIS [J31.0] 07/07/2005 Benign neoplasm of colon [D12.6] 08/05/2005 08/22/2024 Postmenopausal atrophic vaginitis [N95.2] 04/20/2006 11/03/2015 TOBACCO USE DISORDER [F17.200] 06/08/2006 SEBACEOUS CYST [L72.3] 01/18/2007 01/29/2009 Esophagitis, unspecified [K20.90] 09/30/2007 11/03/2015 DIAPHRAGMATIC HERNIA [K44.9] 09/30/2007 01/29/2009 ACUTE GASTRITIS W/O HEMORRHAGE [K29.00] 09/30/2007 01/29/2009 Hematuria [599.7] 02/17/2008 02/12/2011 Urethritis, unspecified [N34.2] 03/22/2008 02/12/2011 Trigonitis [N30.30] 03/22/2008 05/09/2013 Other B-complex deficiencies [E53.8] 03/29/2008 02/12/2011 Pain in joint, lower leg [M25.569] 05/28/2009 11/03/2015 Ureterolithiasis [N20.1] 11/12/2010 02/12/2011 JL (obstructive sleep apnea) [G47.33] 10/16/2011 05/22/2015 Aortic valve sclerosis [I35.8] 04/02/2012 Bilateral carotid artery stenosis [I65.23] 04/02/2012 Personal history of colonic polyps [Z86.0100] 06/07/2012 11/03/2016 Osteoporosis, 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] 09/14/2012 DDD (degenerative disc disease), lumbar [M51.36*04/19/2014 Vitamin D deficiency [E55.9] 05/02/2015 JL on CPAP [G47.33] 05/22/2015 Venous insufficiency of both lower extremities *11/03/2015 02/18/2024 Arteriosclerotic heart disease (ASHD) [I25.10] 06/10/2016 05/04/2017 Primary hypertension [I10] 06/10/2016 Diabetic peripheral neuropathy associated with *05/04/2017 Polycythemia [D75.1] 10/30/2017 Other microscopic hematuria [R31.29] 11/04/2017 06/11/2020 Urgency incontinence [N39.41] 05/10/2018 Excessive sweating, local [L74.519] 05/19/2019 02/18/2024 Nocturnal leg cramps [G47.62] 05/19/2019 02/18/2024 Tremor, essential [G25.0] 06/11/2020 08/22/2024 Gait abnormality [R26.9] 06/11/2020 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 behavioral disturbanc*10/15/2023 (more content not included)... Normal [facility] Neurology Visit Reporton Neurology Visit Report [facility] [address] [place] [address], [address] [place] [address] OFFICE VISIT Date of Service: 03/21/25 MR#: [id number] Acct: [id number] Name: MATTIE HERRON Rep #: [id number] : 1940 Provider: RABIA ojeda Age/Sex: 85/F Location: [facility] [place] Status: Signed HPI HPI Chief Complaint: Establish care Details: History of present illness: Mrs. Herron is an 85-year-old female who presents to neurology today 03/21/2025 to establish care following hospitalization 11/10/2024 for suspected TIA. She is accompanied by her who provi rafael majority of her medical history. Pertinent past medical history includes smoking, JL on CPAP, diabetes mellitus type 2, and hyperlipidemia. She also has a history of hypertension, [place]VD, [place], and cardiac stent (2003). Neurological history includes dementia, likely Alzheimer's, on donepezil. She also has diabetic neuropathy on gabapentin. There is no prior history of migraines, seizures, strokes, or other neurological disorders. Hospital course: On 11/10/2024, patient presented to [facility] emergency department with transient left-sided weakness, left facial droop, and dysarthria. Symptoms resolved in approximately 30 minutes with no residual deficits. CTA head/neck (11/10/2024) demonstrated a near occlusion of her left ICA due to calcific plaque formation. Her right carotid artery was unremarkable. A carotid ultrasound (11/11/2024) was also completed reporting mild <50% stenosis of both the left and the right extracranial internal carotid arteries. MRI brain without contrast (11/10/2024) repeated with contrast (11/11/2024) showed an incidental finding of a left frontal meningioma measuring 9.7 mm x 13.2 mm x 14.5 mm, noncontributory to her presenting symptoms. Additional findings of chronic periventricular small vessel ischemic disease and global cerebral atrophy. EKG (11/10/2024) with normal sinus rhythm. Echocardiogram (11/11/2024) demonstrated a hyperdynamic left ventricle with an EF >75%. There was mild aortic stenosis. Infectious workup was positive for influenza A. Other labs included LDL 43 and hemoglobin A1c 6.2%. A TSH/T4 checked in July 2024 were normal. Patient was discharged on 11/11/2024 but again presented to the emergency department on 11/25/2024 with transient weakness and was suspected to have a repeat TIA. CTA head/neck was repeated and did not demonstrate any hemodynamically significant stenosis. Given her known carotid artery disease and spontaneous resolution of symptoms, patient was discharged home to continue outpatient workup. Interim history: The patient has been evaluated by vascular surgery. CTA head/neck reviewed by them reports 60-65% stenosis by NASCET bilaterally. Carotid duplex did not correlate well likely due to calcification. A repeat CTA head/neck is ordered for a 1 year follow-up. Medications include aspirin 81 mg daily and atorvastatin 80 mg daily (previously prescribed). It is unclear if she completed a course of DAPT; however, I believe aspirin monotherapy is appropriate at this time. reports that patient had a third transient episode of generalized weakness and confusion occurring in November 2024. Symptoms resolved within 30 minutes. This was less severe than the 1st and 2nd episode. describes a blank stare with minimal responsiveness occurring during these episodes. Additional TIA workup will need to include a cardiac event monitor to screen for paroxysmal atrial fibrillation. Minimizing fluctuations in blood pressure and maintaining hydration in the setting of her carotid artery disease is also of essence. Patient had a hyperdynamic LV on recent TTE which could have been secondary to a hypovolemic state at the time of exam. Blood pressure fluctuations leading to cerebral hypoperfusion may result in the transient symptoms she experienced. She is to follow-up with her home health travel pt. Concern is also raised for potential seizure activity given the 's description. Patient actually reports seeing a neurologist approximately 1 month ago before establishing locally at this office. She was initiated Keppra 500 mg twice daily and completed an EEG. Results of the EEG will need to be obtained for review. On exam today, patient has no appreciated focal neurological deficits. There is presence of bilateral lower extremity sensory impairment due to her known diabetic neuropathy. She has a reported progressive cognitive decline, consistent with Alzheimer's dementia, that is evident on today's exam as well. ---- ROS: General: No fatigue. No recent weight loss/gain. No recent illness. No fevers. No recent falls. Neuro: No headaches. Chronic numbness/tingling to lower extremities. Progressive memory difficulties, reported wors (more content not included)... [facility] Visit ([facility] ) MATTIE HERRON ([id number]) 1940 F Date Time Provider Department 03/14/25 2:30 PM THEA CORDOBA [facility] During your visit today, we recorded the following information about you: Pulse Respiration Blood pressure Weight 76/minute 18/minute 122/70 69.8 kg Thea Cordoba APRN.OUTSIDE SALES ACCOUNT REPRESENTATIVE 03/14/2025 3:58 PM Addendum [facility] Subjective Mattie Grisel Herron is a 85 year old female. Patient presents with: Hand Injury: right hand, bilateral knee pain after fall x 1 hour Hand Injury Pertinent negatives include no fatigue, fever, headaches, joint swelling, neck pain or numbness. Patient is a 85-year-old female who comes in with her who fell getting up from the toilet. She had abrasions to her right hand with a believed to be on a towel montaño in addition to hitting the top of her knees. She still able to walk with her walker denies any numbness or tingling in her hand. She does have 2 skin tears on the dorsal aspect of her hand. Denies any head pain head injury or cervical tenderness today. No changes in vision, no nausea vomiting or headache. Review of Systems Constitutional: Negative for fatigue and fever. Musculoskeletal: Negative for back pain, gait problem, joint swelling, neck pain and neck stiffness. Skin: Positive for wound. Neurological: Negative for seizures, light-headedness, numbness and headaches. Objective BP 122/70 Pulse 76 Resp 18 Wt 69.8 kg (153 lb 14.1 oz) SpO2 93% BMI 25.61 kg/m? 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 [place], RCA stent November 2003. Coronary atherosclerosis of unspecified type of vessel, [place] or graft 07/07/2005 [place], PTCA 1988. [place], RCA stent November 2003. DDD (degenerative disc disease), lumbar 04/19/2014 Dr. 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 Galen Waters. 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 (HCC) 08/22/2024 Polycythemia 10/30/2017 Postmenopausal atrophic vaginitis Tremor, essential 06/11/2020 Type II or unspecified type diabetes mellitus without mention of complication, not stated as uncontrolled 10/01/2006 Ureterolithiasis 11/12/2010 Venous insufficiency of both lower extremities 11/03/2015 PAST SURGICAL HISTORY Procedure Laterality Date BX BREAST PERC VACUUM/ROTN 09/05/08 RIGHT BREAST COLONOSCOPY FLX DX W/COLLJ SPEC WHEN PFRMD 08/05/05 Colonoscopy COLONOSCOPY FLX DX W/COLLJ SPEC WHEN PFRMD 10/06/2006 Colonoscopy COLONOSCOPY FLX DX W/COLLJ SPEC WHEN PFRMD 06/07/2012 Colonoscopy COLONOSCOPY FLX DX W/COLLJ SPEC WHEN PFRMD 06/30/2013 Colonoscopy COLSC FLX W/RMVL OF TUMOR POLYP LESION SNARE TQ 05/22/2017 multiple [id number] follow-up CORONARY ENDARTERCOMY OPEN ANY METHOD 1989 Angioplasty CORRECT BUNION,SIMPLE 09/08/2008 hammertoe CYSTOSCOPY 10/26/2017 EGD TRANSORAL BIOPSY SINGLE/MULTIPLE 09/30/07 EXC BREAST LES PREOP PLMT RAD MARKER OPEN 1 LES 09/05/08 INSERT INTRACORONARY STENT 11/2003 RIGHT CORONARY STENT INSERT INTRACORONARY STENT 02/2004 STENT INFRARENAL ABDOMINAL AORTA PAST SURGICAL HISTORY OF 08/30/2012 Right thumb, wrist surgery PAST SURGICAL HISTORY OF Left 02/15/2018 Left cataract removed STEREOTACTIC CORE BIOPSY 09/05/08 ALLERGIES Amoxicillin, Bee Sting, Percocet [Oxycodone-Acetaminophen], Rosuvastatin, Sulfa (Sulfonamide Antibiotics), Vicodin [Hydrocodone-Acetaminophen], Zocor [Simvastatin], and Clavulanic Acid MEDICATIONS levETIRAcetam (KEPPRA) 500 mg tablet Take 1 tablet by mouth two times a day. donepezil (ARICEPT) 5 mg tablet Take 1 tablet by mouth once daily. albuterol HFA (PROVENTIL HFA, VENTOLIN HFA) 90 mcg/actuation inhaler Inhale 2 puffs as instructed every 4 hours as needed for wheezing/shortness of breath. benzonatate (T (more content not included)... Normal [facility] No Panel Informationon 03-14 Radiology Study observation (narrative) [facility] XR HAND 3V PA/LAT/OBL RTon 0 03-14-2025 XR HAND 3V PA/LAT/OBL RT * * *Final Report* * * DATE OF EXAM: Mar 14 2025 3:19PM WOX [id number] - XR HAND 3V PA/LAT/OBL RT / PROCEDURE REASON: multiple diagnoses * * * * Physician Interpretation * * * * EXAMINATION: XR HAND 3V PA/LAT/OBL RT TECHNOLOGIST PROVIDED HISTORY: Contusion to back of right hand after fall today CLINICAL INFORMATION: 85 years old Female with Fall, initial encounter Contusion of right hand, initial encounter TECHNIQUE: XR HAND 3V PA/LAT/OBL RT Laterality: RIGHT Number of different views (projections): 3 COMPARISON: None RESULT: No acute fracture. Status post trapeziectomy/1st CMC dissection arthroplasty. Mild scattered degenerative changes at the interphalangeal joints. Joint spaces are otherwise maintained. IMPRESSION: No acute osseous abnormality. Web Administrator: FRANCESCA Transcribe Date/Time: Mar 14 2025 3:24P Dictated by : PAMELA HENSLEY DO This examination was interpreted and the report reviewed and electronically signed by: PAMELA HENSLEY DO on Mar 14 2025 3:26PM EST [id number] Normal [facility] XR Hand - right PA and Later al and Obliqueon 03-14-2025 IMPRESSION: No acute osseous abnormality. Web Administrator: [email or web address] Transcribe Date/Time: Mar 14 2025 3:24P Dictated by : PAMELA HENSLEY DO This examination was interpreted and the report reviewed and electronically signed by: PAMELA HENSLEY DO on Mar 14 2025 3:26PM EST DIVISION OF RADIOLOGY * * *Final Report* * * DATE OF EXAM: Mar 14 2025 3:19PM WOX [id number] - XR HAND 3V PA/LAT/OBL RT / PROCEDURE REASON: multiple diagnoses * * * * Physician Interpretation * * * * EXAMINATION: XR HAND 3V PA/LAT/OBL RT TECHNOLOGIST PROVIDED HISTORY: Contusion to back of right hand after fall today CLINICAL INFORMATION: 85 years old Female with Fall, initial encounter Contusion of right hand, initial encounter TECHNIQUE: XR HAND 3V PA/LAT/OBL RT Laterality: RIGHT Number of different views (projections): 3 COMPARISON: None RESULT: No acute fracture. Status post trapeziectomy/1st CMC dissection arthroplasty. Mild scattered degenerative changes at the interphalangeal joints. Joint spaces are otherwise maintained. DIVISION OF RADIOLOGY [facility] * * *Final Report* * * DATE OF EXAM: Mar 14 2025 3:19PM WOX [id number] - XR HAND 3V PA/LAT/OBL RT / PROCEDURE REASON: multiple diagnoses * * * * Physician Interpretation * * * * EXAMINATION: XR HAND 3V PA/LAT/OBL RT TECHNOLOGIST PROVIDED HISTORY: Contusion to back of right hand after fall today CLINICAL INFORMATION: 85 years old Female with Fall, initial encounter Contusion of right hand, initial encounter TECHNIQUE: XR HAND 3V PA/LAT/OBL RT Laterality: RIGHT Number of different views (projections): 3 COMPARISON: None RESULT: No acute fracture. Status post trapeziectomy/1st CMC dissection arthroplasty. Mild scattered degenerative changes at the interphalangeal joints. Joint spaces are otherwise maintained. IMPRESSION IMPRESSION: No acute osseous abnormality. Web Administrator: [facility] Transcribe Date/Time: Mar 14 2025 3:24P Dictated by : PAMELA HENSLEY DO This examination was interpreted and the report reviewed and electronically signed by: PAMELA HENSLEY DO on Mar 14 2025 3:26PM [facility] XR KNEE 4V AP/PA/LAT/MERCH B ILon 03-14-2025 XR KNEE 4V AP/PA/LAT/MERCH NAVNEET * * *Final Report* * * DATE OF EXAM: Mar 14 2025 3:19PM WOX [id number] - XR KNEE 4V AP/PA/LAT/MERCH NAVNEET / PROCEDURE REASON: Contusion of knee, unspecified laterality, initial encounter * * * * Physician Interpretation * * * * TITLE: XR KNEE 4V AP/PA/LAT/MERCH NAVNEET CLINICAL INDICATION: Continued TECHNIQUE: 4 view radiographic study of the bilateral knee COMPARISON: Radiograph dated 05/28/2009 FINDINGS: Left knee: No suprapatellar joint effusion. Osseous demineralization. No acute fracture or dislocation identified. Mild medial and moderate patellofemoral compartmental joint space narrowing. Atherosclerotic calcification of the vasculature. Right knee: No suprapatellar joint effusion. Osseous demineralization. Mild medial and moderate patellofemoral compartmental joint space narrowing. IMPRESSION: No radiographic evidence of acute osseous injury. Web Administrator: [facility] Transcribe Date/Time: Mar 14 2025 3:18P Dictated by : BRANDI HERNANDEZ MD This examination was interpreted and the report reviewed and electronically signed by: BRANDI HERNANDEZ MD on Mar 14 2025 3:24PM EST [id number] Normal [facility] XR Knee - bilateral 4 Viewso n 03-14-2025 IMPRESSION: No radiographic evidence of acute osseous injury. Web Administrator: [email or web address] Transcribe Date/Time: Mar 14 2025 3:18P Dictated by : BRANDI HERNANDEZ MD This examination was interpreted and the report reviewed and electronically signed by: BRANDI HERNANDEZ MD on Mar 14 2025 3:24PM [facility] DIVISION OF RADIOLOGY * * *Final Report* * * DATE OF EXAM: Mar 14 2025 3:19PM WOX [id number] - XR KNEE 4V AP/PA/LAT/MERCH NAVNEET / PROCEDURE REASON: Contusion of knee, unspecified laterality, initial encounter * * * * Physician Interpretation * * * * TITLE: XR KNEE 4V AP/PA/LAT/MERCH NAVNEET CLINICAL INDICATION: Continued TECHNIQUE: 4 view radiographic study of the bilateral knee COMPARISON: Radiograph dated 05/28/2009 FINDINGS: Left knee: No suprapatellar joint effusion. Osseous demineralization. No acute fracture or dislocation identified. Mild medial and moderate patellofemoral compartmental joint space narrowing. Atherosclerotic calcification of the vasculature. Right knee: No suprapatellar joint effusion. Osseous demineralization. Mild medial and moderate patellofemoral compartmental joint space narrowing. DIVISION OF RADIOLOGY Provider, [facility] - 03/14/2025 * * *Final Report* * * DATE OF EXAM: Mar 14 2025 3:19PM WOX [id number] - XR KNEE 4V AP/PA/LAT/MERCH NAVNEET / PROCEDURE REASON: Contusion of knee, unspecified laterality, initial encounter * * * * Physician Interpretation * * * * TITLE: XR KNEE 4V AP/PA/LAT/MERCH NAVNEET CLINICAL INDICATION: Continued TECHNIQUE: 4 view radiographic study of the bilateral knee COMPARISON: Radiograph dated 05/28/2009 FINDINGS: Left knee: No suprapatellar joint effusion. Osseous demineralization. No acute fracture or dislocation identified. Mild medial and moderate patellofemoral compartmental joint space narrowing. Atherosclerotic calcification of the vasculature. Right knee: No suprapatellar joint effusion. Osseous demineralization. Mild medial and moderate patellofemoral compartmental joint space narrowing. IMPRESSION IMPRESSION: No radiographic evidence of acute osseous injury. Web Administrator: [facility] Transcribe Date/Time: Mar 14 2025 3:18P Dictated by : BRANDI HERNANDEZ MD This examination was interpreted and the report reviewed and electronically signed by: BRANDI HERNANDEZ MD on Mar 14 2025 3:24PM EST [facility] XR Knee - bilateral 4 ViewsO rdered By: [facility] Provider on 03-14-2025 [facility] CNOVon 02-27-2025 CNOV Office Visit ([facility] ) GOPALMATTIE Grisel ([id number]) 1940 F Date Time Provider Department 02/27/25 10:30 AM TRAM SANTANA [facility] During your visit today, we recorded the following information about you: Pulse Blood pressure Weight 51/minute 123/56 70.7 kg Tram Santana MD 02/27/2025 2:51 PM Signed FOLLOW UP NOTE Subjective Mattie Recinos Gopal is a 85 year old female who presents for follow up. 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 Her examination demonstrates severe hearing loss, disorientation, impaired recall, R>L mild parkinsonism, LE numbness, and sensory ataxic gait. 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 Probably Alzheimer's based on pattern but also has severe hearing loss and she is on oxybutynin which could be contributing. Offered MRI Brain, deferred. Start donepezil 5 mg daily. Encouraged activity. Ask urology about alternative bladder medications. For Pism, would just recommend observation for now. Mild symptoms not impacting function. Gait is from sensory ataxia not Parkinson's, which levodopa doesn't help. 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 Continue use of walker. 07/2024 increase donepezil to 10, PT for balance. HPI Current Issues Has had a couple episodes diagnosed as TIAs since the last visit - Becomes unresponsive, loss of feeling / motion in the right arm - Eyes open, no shaking, left face seemed to sag a bit - Lasts minutes, by the time getting to the hospital she is improved Two episodes in October diagnosed as TIA at [facility] Donepezil increase led to diarrhea so back down to 5 mg Weight is stable Has had 2 falls [place] then one recently in the bedroom getting out of bed. Current Outpatient Medications Medication Sig Dispense Refill albuterol HFA (PROVENTIL HFA, VENTOLIN HFA) 90 mcg/actuation inhaler Inhale 2 puffs as instructed every 4 hours as needed for wheezing/shortness of breath. 1 each 1 benzonatate (TESSALON PERLE) 100 mg capsule Take 1 capsule by mouth three times a day as needed for cough for up to 12 doses. 12 capsule 0 atenolol (TENORMIN) 25 mg tablet Take 1 tablet by mouth every other day. gabapentin (NEURONTIN) 300 mg capsule Take 1 capsule by mouth three times a day for 180 days. 90 capsule 5 mirabegron (MYRBETRIQ) 50 mg Tb24 Take 1 tablet by mouth once daily. 30 tablet 5 PARoxetine (PAXIL) 10 mg tablet Take 1 tablet by mouth once daily. 90 tablet 3 donepezil (ARICEPT) 10 mg tablet Take 1 tablet by mouth once daily. 90 tablet 3 atorvastatin (LIPITOR) 80 mg tablet Take 1 tablet by mouth daily at bedtime. 90 tablet 3 nitroglycerin sublingual (NITROQUICK) 0.4 mg SL tablet Dissolve 1 tablet under the tongue as needed. FOR CHEST PAIN. IF NO RELIEF CALL 911 25 tablet 0 triamcinolone acetonide (NASACORT AQ) 55 mcg nasal inhaler Use 2 Sprays in the nose once daily. CPAP CPAP mask and other supplies as needed. Mask per pt preference, tubing, filters, heated humidity, lifetime supplies. Dx: JL on CPAP. G47.33. 1 Device 0 Cholecalciferol, Vitamin D3, 2,000 unit cap Take 2 capsules by mouth once daily. 0 ASPIRIN 81 MG TAB once daily 0 No current facility-administered medications for this visit. Objective OBJECTIVE 02/27/25 1019 BP: 123/56 BP Site: Left Arm BP Position: Sitting BP Cuff Size: Regular Adult Pulse: (!) 51 SpO2: 97% Weight: 70.7 kg (155 lb 13.8 oz) General: General Appearance: Well appearing, alert, in no acute distress, well-hydrated, well nourished. Head: Normocephalic Neck: Supple Neurologic Exam: She is alert. Reg 11/28 [facility], February ? 2024, Mon, age 85, attention intact, recall impaired. Affect is appropriate. Cranial Nerves: Extraocular movements show full and smooth pursuits. No nystagmus. Visual petersen are full to confrontation. Facial activation is symmetric. Hearing is only mildly impaired today. There is no hypomimia. There is no hypophonia. There is no dysarthria. Tongue is midline. Palate elevates symmetrically. Shoulder shrug is normal. Motor: Muscle bulk is normal. Muscle power is full. Mild R>L bradykinesia. Mild bilateral rest tremor, subtle postural re-emergent tremor. Subtle RUE rigidity. Sensory: Vibration absent ankles present knees Coordination: Finger to nose is smooth without ataxia. Gait/station: Wid (more content not included)... Normal [facility] CBC panel Auto (Bld)on 02-23 Erythrocyte distribution width (RBC) [Ratio] 16.2 % High 11.5 - 15.0 % [facility] Hematocrit (Bld) [Volume fraction] 47.1 % High 36.0 - 46.0 % [facility] Hemoglobin (Bld) [Mass/Vol] 14.8 g/dL 11.5 - 15.5 g/dL [facility] Interpretation and review of laboratory results Abnormal [facility] MCH (RBC) [Entitic mass] 28.2 pg 26.0 - 34.0 pg [facility] MCHC (RBC) [Mass/Vol] 31.4 g/dL 30.5 - 36.0 g/dL [facility] MCV (RBC) [Entitic vol] 89.7 fL 80.0 - 100.0 fL [facility] Nucleated RBC (Bld) [#/Vol] NINF [facility] Platelet mean volume (Bld) [Entitic vol] 11.7 fL 9.0 - 12.7 fL [facility] Platelets (Bld) [#/Vol] 147 10*3/uL Low [facility] RBC (Bld) [#/Vol] 5.25 10*6/uL High 3.90 - 5.20 m/uL [facility] WBC (Bld) [#/Vol] 7.85 10*3/uL [facility] Erythrocyte distribution width (RBC) [Ratio] 16.2 % High 11.5-15.0 [facility] Comment on above: Order Comment: Speci men Type: BLOOD SPECIMENOrdering Facility: [facility] Address: [address] [place] [address] Performed By: #### 5 8410-2 ####[facility] [id number] [place] [address] [place] Hematocrit (Bld) [Volume fraction] 47.1 % High 36.0-46.0 [facility] Comment on above: Order Comment: Speci men Type: BLOOD SPECIMENOrdering Facility: [facility] Address: [address] [place] [address] Performed By: #### 5 8410-2 ####[facility] [id number] [address] [place] Hemoglobin (Bld) [Mass/Vol] 14.8 g/dL Normal 11.5-15.5 [facility] Comment on above: Order Comment: Speci men Type: BLOOD SPECIMENOrdering Facility: [facility] Address: [address] [place] [address] Performed By: #### 5 8410-2 ####[facility] [id number] [place] [address] [place] MCH (RBC) [Entitic mass] 28.2 pg Normal 26.0-34.0 [facility] Comment on above: Order Comment: Speci men Type: BLOOD SPECIMENOrdering Facility: [facility] Address: [address] [place] [address] Performed By: #### 5 8410-2 ####[facility] [id number] [place] [address] [place] MCHC (RBC) [Mass/Vol] 31.4 g/dL Normal 30.5-36.0 [facility] Comment on above: Order Comment: Speci men Type: BLOOD SPECIMENOrdering Facility: [facility] Address: [address] [place] [address] Performed By: #### 5 8410-2 ####[facility] [id number] [place] [address] [place] MCV (RBC) [Entitic vol] 89.7 fL Normal 80.0-100.0 [facility] Comment on above: Order Comment: Speci men Type: BLOOD SPECIMENOrdering Facility: [facility] Address: [address] [place] [address] Performed By: #### 5 8410-2 ####[facility] [id number] [place] [address] [place] Nucleated RBC (Bld) [#/Vol] 10*3/uL Normal <0.01 [facility] Comment on above: Order Comment: Speci men Type: BLOOD SPECIMENOrdering Facility: [facility] Address: [address] [place] [address] Performed By: #### 5 8410-2 ####[facility] [id number] [place] [address] [place] Platelet mean volume (Bld) [Entitic vol] 11.7 fL Normal 9.0-12.7 [facility] Comment on above: Order Comment: Speci men Type: BLOOD SPECIMENOrdering Facility: [facility] Address: [address] [place] [address] Performed By: #### 5 8410-2 ####[facility] [id number] [place] [address] [place] Platelets (Bld) [#/Vol] 147 10*3/uL Low 150-400 [facility] Comment on above: Order Comment: Speci men Type: BLOOD SPECIMENOrdering Facility: [facility] Address: [address] [place] [address] Performed By: #### 5 8410-2 ####[facility] [id number] [place] [address] [place] RBC (Bld) [#/Vol] 5.25 10*6/uL High 3.90-5.20 [facility] Comment on above: Order Comment: Speci men Type: BLOOD SPECIMENOrdering Facility: [facility] Address: [address] [place] [address] Performed By: #### 5 8410-2 ####[facility] [id number] [place] [address] [place] WBC (Bld) [#/Vol] 7.85 10*3/uL Normal 3.70-11.00 [facility] Comment on above: Order Comment: Speci men Type: BLOOD SPECIMENOrdering Facility: [facility] Address: [address] [place] [address] Performed By: #### 5 8410-2 ####[facility] [id number] [address] [place] CNOVon 02-23-2025 CNOV Office Visit (INTMWS ) MATTIE HERRON ([id number]) 1940 F Date Time Provider Department 02/23/25 9:20 AM MATHEUS FAJARDO INTMWS During your visit today, we recorded the following information about you: Pulse Respiration Blood pressure Weight 60/minute 18/minute 100/58 69.6 kg Height 1.651 m Matheus Fajardo MD 02/23/2025 9:55 AM Signed Mattie Herron is a 85 year old female here for a Medicare wellness visit. Medicare Health Risk Assessment General Health Fair Exercise: Minutes/Day 0 min Exercise: Days/Week 0 days Alcohol: Daily Use Never Alcohol: Drinks/Day Patient does not drink Alcohol: 6 or more drinks Never Feel off balance Yes Concerns: Teeth/Dentures No Concerns: Sexual function No Troubled by feelings None of the above Frequency: Eating healthy diet Not at all ADLs requiring help Grocery shopping; Cooking; Housework; Driving; Taking medications; Handling finances; Managing urine leakage Safety precautions in home/vehicle Yes Smoke, vape, chews tobacco Yes, but I'm not ready to quit Difficulty hearing Yes, I wear a hearing aid Difficulty seeing No Current Providers Specialists: I have reviewed specialist-related care of the patient in the medical record. Current care team: Patient Care Team: Matheus Fajardo MD as PCP - General Cookie Sewell, CONTACT WORKER LITHOGRAPHY.OUTSIDE SALES ACCOUNT REPRESENTATIVE as Telegraphic Typewriter Operator (Internal Medicine) Tram Santana MD (Neurology) Maribell Hill MD (Cardiology) Outside specialists seen: Laura Mancuso PAC ([facility]) Ammy Linares OD ([facility]) Medical/Family history review Reviewed and updated problem list, medical/surgical/family/social history, medications, and allergies. Opioid use review Opioid Medications (last 90 days) No data to display Anxiety/Depression screening Recommendation: no further intervention at this time Cognitive screening Cognitive screening reviewed and Patient has known cognitive impairment. Functional Observation Was the patient's Timed Up AND Go test unsteady or >= 12 seconds? Yes Advance Care Planning Patient did not wish or was not able to name a surrogate decision maker or provide an advance care plan Measurements BP 100/58 Pulse 60 Resp 18 Ht 165.1 cm (5' 5) Wt 69.6 kg (153 lb 7 oz) BMI 25.53 kg/m? Vision Screening: Follows with optometry/ophthalmology Right: 20/50 Left: 20/ 30 Both: 20/50 Assessment/Plan Medicare annual wellness visit, subsequent (Z00.00) - Counseled on healthy diet and regular exercise - Fall avoidance information provided - Personalized prevention plan provided - Smoking cessation encouraged; discussed risks to health and quitting strategies. Patient is not ready to quit Matheus Fajardo MD 02/23/2025 9:37 AM Signed Screening schedule The following prevention plan is recommended: DTaP,Tdap,Td Vaccine(1 - Tdap) due on 06/09/2006 Advance Directive Discussion due on 09/28/2024 Dilated Retinal Exam due on 12/28/2024 HbA1C due on 02/19/2025 LDL Cholesterol due on 02/17/2025 WHAT YOU CAN DO TO PREVENT FALLS Many falls can be prevented. By making some changes, you can lower your chances of falling. Four things YOU can do to prevent falls for you* and your caregiver 1. Begin a regular exercise program Exercise is one of the most important ways to lower your chances of falling. It makes you stronger and helps you feel better. Exercises that improve balance and coordination (like Naeem Chi) are the most helpful. Lack of exercise leads to weakness and increases your chances of falling. Ask your doctor or health care provider about the best type of exercise program for you. 2. Have your health care provider review your medicines Have your doctor or pharmacist review all the medicines you take, even wnhb-lte-yqevkah medicines. As you get older, the way medicines work in your body can change. Some medicines, or combinations of medicines, can make you sleepy or dizzy and can cause you to fall. 3. Have your vision checked Have your eyes checked by an eye doctor at least once a year. You may be wearing the wrong glasses or have a condition like glaucoma or cataracts that limits your vision. Poor vision can increase your chances of falling. 4. Make your home safer About half of all falls happen at home. To make your home safer: Remove things you can trip over (like papers, books, clothes, and shoes) from stairs and places where you walk. Remove small throw rugs or use double-sided tape to keep the rugs from slipping. Keep items you use often in cabinets you can reach easily without using a step stool. Have grab bars put in next to your toilet and in the tub or shower. Use non-slip mats in the bathtub and on shower floors. Improve the lighting in your home. As you get older, you need brighter lights t (more content not included)... Normal [facility] Comprehensive metabolic 2000 panelon 02-23-2025 Albumin [Mass/Vol] 3.5 g/dL Low 3.9-4.9 [facility] Comment on above: Order Comment: Speci men Type: BLOOD SPECIMENOrdering Facility: [facility] Address: [facility] [place] [address] Performed By: #### 2 4323-8, LIPNF ####[facility] [id number] [place] [address] [place] ALP [Catalytic activity/Vol] 84 U/L Normal 34-123 [facility] Comment on above: Order Comment: Speci men Type: BLOOD SPECIMENOrdering Facility: [facility] Address: [address] [place] [address] Performed By: #### 2 4323-8, LIPNF ####[facility] [id number] [place] [id number] [place] ALT [Catalytic activity/Vol] 13 U/L Normal 7-38 [facility] Comment on above: Order Comment: Speci men Type: BLOOD SPECIMENOrdering Facility: [facility] Address: [address] [place] [address] Performed By: #### 2 4323-8, LIPNF ####[facility] [id number] [address] [address] [place] Anion gap [Moles/Vol] 12 mmol/L Normal 8-15 [facility] Comment on above: Order Comment: Speci men Type: BLOOD SPECIMENOrdering Facility: [facility] Address: [address] [place] [address] Performed By: #### 2 4323-8, LIPNF ####[facility] [id number] [address] [address] [place] AST [Catalytic activity/Vol] 17 U/L Normal 13-35 [facility] Comment on above: Order Comment: Speci men Type: BLOOD SPECIMENOrdering Facility: [facility] Address: [address] [place] [address] Performed By: #### 2 4323-8, LIPNF ####[facility] [id number] [place] [address] [place] Bilirubin [Mass/Vol] 0.5 mg/dL Normal 0.2-1.3 [facility] Comment on above: Order Comment: Speci men Type: BLOOD SPECIMENOrdering Facility: [facility] Address: [address] [place] [address] Performed By: #### 2 4323-8, LIPNF ####[facility] [id number] [place] [address] [place] Calcium [Mass/Vol] 9.7 mg/dL Normal 8.5-10.2 [facility] Comment on above: Order Comment: Speci men Type: BLOOD SPECIMENOrdering Facility: [facility] Address: [address] [place] [address] Performed By: #### 2 4323-8, LIPNF ####[facility] [id number] [place] [address] [place] Chloride [Moles/Vol] 106 mmol/L Normal 98-107 [facility] Comment on above: Order Comment: Speci men Type: BLOOD SPECIMENOrdering Facility: [facility] Address: [address] [place], [place] [id number] Performed By: #### 2 4323-8, LIPNF ####[facility] [id number] [place] [id number] [place] CO2 [Moles/Vol] 25 mmol/L Normal 22-30 [facility] Comment on above: Order Comment: Speci men Type: BLOOD SPECIMENOrdering Facility: [facility] Address: [address] [place] [address] Performed By: #### 2 4323-8, LIPNF ####[facility] [id number] [place] [id number] [place] Creatinine [Mass/Vol] 1.00 mg/dL High 0.58-0.96 [facility] Comment on above: Order Comment: Speci men Type: BLOOD SPECIMENOrdering Facility: [facility] Address: [address] [place] [address] Performed By: #### 2 4323-8, LIPNF ####[facility] [id number] [place] [address] [place] Creatinine and Glomerular filtration rate.predicted panel (S/P/Bld) 55 mL/min/1.73m??? Low >=60 [facility] Comment on above: Order Comment: Sidrai men Type: BLOOD SPECIMENOrdering Facility: [facility] Address: [address] [place] [address] Result Comment: Bryanna mated Glomerular Filtration Rate (eGFR) is calculated using the 2020 CKD-EPI creatinine equation. This equation utilizes serum creatinine, sex, and age as parameters. The creatinine assay has traceable calibration to isotope dilution-mass spectrometry. Refer to KDIGO guidelines for clinical interpretation. In patients with unstable renal function, e.g. those with acute kidney injury, the eGFR may not accurately reflect actual GFR. Performed By: #### 2 4323-8, LIPNF ####[facility] [id number] [place] [id number] [place] Glucose [Mass/Vol] 123 mg/dL High 74-99 [facility] Comment on above: Order Comment: Speci men Type: BLOOD SPECIMENOrdering Facility: [facility] Address: [address] [place] [address] Result Comment: The [place] Diabetes Association (ADA) provides guidance for cutoff values for fasting glucose and random glucose. The ADA defines fasting as no caloric intake for at least 8 hours. Fasting plasma glucose results between 100 to 125 mg/dL indicate increased risk for diabetes (prediabetes). Fasting plasma glucose results greater than or equal to 126 mg/dL meet the criteria for diagnosis of diabetes. In the absence of unequivocal hyperglycemia, results should be confirmed by repeat testing. In a patient with classic symptoms of hyperglycemia or hyperglycemic crisis, random plasma glucose results greater than or equal to 200 mg/dL meet the criteria for diagnosis of diabetes. Reference: Standards of Medical Care in Diabetes 2016, [place] Diabetes Association. Diabetes Care. 2016.39(Suppl 1). Performed By: #### 2 4323-8, LIPNF ####[facility] [id number] [address] [address] [place] Potassium [Moles/Vol] 4.1 mmol/L Normal 3.7-5.1 [facility] Comment on above: Order Comment: Speci men Type: BLOOD SPECIMENOrdering Facility: [facility] Address: [address] [place] [address] Performed By: #### 2 4323-8, LIPNF ####[facility] [id number] [address] [place] [address] [place] Protein [Mass/Vol] 6.3 g/dL Normal 6.3-8.0 [facility] Comment on above: Order Comment: Speci men Type: BLOOD SPECIMENOrdering Facility: [facility] Address: [address] [place] [address] Performed By: #### 2 4323-8, LIPNF ####[facility] [id number] [address] [address] [place] Sodium [Moles/Vol] 143 mmol/L Normal 136-144 [facility] Comment on above: Order Comment: Speci men Type: BLOOD SPECIMENOrdering Facility: [facility] Address: [address] [place] [address] Performed By: #### 2 4323-8, LIPNF ####[facility] [id number] [address] [place] [address] [place] Urea nitrogen [Mass/Vol] 16 mg/dL Normal 7-21 [facility] Comment on above: Order Comment: Stella johnson Type: BLOOD SPECIMENOrdering Facility: [facility] Address: [address] [place] [address] Performed By: #### 2 4323-8, LIPNF ####[facility] [id number] [address] [place] HbA1c (Bld)on 02-23-2025 Average glucose Estimated from glycated hemoglobin (Bld) [Mass/Vol] 126 mg/dL Normal [facility] Comment on above: Order Comment: Stella johnson Type: BLOOD SPECIMENOrdering Facility: [facility] Address: [address] [place] [address] Result Comment: eAG: (Estimated average glucose) is a calculated value from HgbA1c and is senior human resources representative of the average blood glucose level in the last 2-3 month period. Performed By: #### 5 5454-3 ####[facility] [id number] [address] STATES OF [facility] HbA1c (Bld) [Mass fraction] 6.0 % High 4.3-5.6 [facility] Comment on above: Order Comment: Stella johnson Type: BLOOD SPECIMENOrdering Facility: [facility] Address: [address] [place] [address] Result Comment: [place] Diabetes Association guidelines indicate that patients with HgbA1c in the range 5.7-6.4% are at increased risk for development of diabetes, and intervention by lifestyle modification may be beneficial. HgbA1c greater or equal to 6.5% is considered diagnostic of diabetes. Performed By: #### 5 5454-3 ####[facility] [id number] [place] [address] [facility] OF [place] LIPID PANEL, NONFASTINGon Cholesterol [Mass/Vol] 144 mg/dL Normal <200 [facility] Comment on above: Order Comment: Stella alex Type: BLOOD SPECIMENOrdering Facility: [facility] Address: [address] [place] [address] Result Comment: <200 mg/dL, Desirable 200-239 mg/dL, Borderline high >239 mg/dL, High Performed By: #### 2 4323-8, LIPNF ####[facility] [id number] [facility] [id number] [place] [address] [place] HDL CHOLESTEROL, NF 48 mg/dL Normal >39 [facility] Comment on above: Order Comment: Speci men Type: BLOOD SPECIMENOrdering Facility: [facility] Address: [address] [place] [address] Result Comment: 40-5 9 mg/dL, Acceptable >59 mg/dL, High: Negative risk factor for coronary heart disease <40 mg/dL, Low: Positive risk factor for coronary heart disease Performed By: #### 2 4323-8, LIPNF ####[facility] [id number] [address] [place] LDL CHOLESTEROL CALCULATED, NF 69 mg/dL Normal <100 [facility] Comment on above: Order Comment: Speci men Type: BLOOD SPECIMENOrdering Facility: [facility] Address: [address] [place] [address] Result Comment: <100 mg/dL, Optimal 100-129 mg/dL, Near optimal/above optimal 130-159 mg/dL, Borderline high 160-189 mg/dL, High >189 mg/dL, Very high Secondary prevention optimal LDL Cholesterol levels are recommended to be <70 mg/dL LDL cholesterol is calculated using the Bustillo-NIH equation. Performed By: #### 2 4323-8, LIPNF ####[facility] [id number] [address] [place] LDL/HDL RATIO, NF 1.44 mg/dL Normal <2.54 [facility] Comment on above: Order Comment: Speci men Type: BLOOD SPECIMENOrdering Facility: [facility] Address: [address] [place] [address] Result Comment: Refparamjit mohan: 1. National Cholesterol Education Program ATP III Guideline At-A-Glance Quick Desk Reference: National Heart, Lung, and Blood Turner. National Institutes of Health. 2001: NIH Publication No. 01-3305. 2. An International Atherosclerosis Society position paper: global recommendations for the management of dyslipidemia: executive summary, Atherosclerosis. 2014: 232(2):410-413. Performed By: #### 2 4323-8, LIPNF ####[facility] [id number] [address] [place] NON HDL CHOL, NF 96 mg/dL Normal <130 [facility] Comment on above: Order Comment: Speci men Type: BLOOD SPECIMENOrdering Facility: [facility] Address: [address] [place] [address] Result Comment: <130 mg/dL, Optimal 130-159 mg/dL, Near optimal/above optimal 160-189 mg/dL, Borderline high 190-219 mg/dL, High >219 mg/dL, Very high Secondary prevention optimal non HDL Cholesterol levels are recommended to be <100 mg/dL Performed By: #### 2 4323-8, LIPNF ####[facility] [id number] [address] OF [facility] T CHOL/HDL RATIO NF 3.00 mg/dL Normal <5.10 [facility] Comment on above: Order Comment: Speci men Type: BLOOD SPECIMENOrdering Facility: [facility] Address: [address] [place] [address] Performed By: #### 2 4323-8, LIPNF ####[facility] [id number] [place] [id number] [place] TRIGLYCERIDES, NF 156 mg/dL High <150 [facility] Comment on above: Order Comment: Speci men Type: BLOOD SPECIMENOrdering Facility: [facility] Address: [address] [place] [address] Result Comment: <150 mg/dL, Normal 150-199 mg/dL, Borderline high 200-499 mg/dL, High >499 mg/dL, Very high Performed By: #### 2 4323-8, LIPNF ####[facility] [id number] [place] [address] [place] VLDL CHOLESTEROL, NF 23 mg/dL Normal <30 [facility] Comment on above: Order Comment: Speci men Type: BLOOD SPECIMENOrdering Facility: [facility] Address: [address] [place] [address] Performed By: #### 2 4323-8, LIPNF ####[facility] [id number] [address] [place] CNOVon 01-21-2025 CNOV Office Visit (INTMWS ) MATTIE HERRON ([id number]) 1940 F Date Time Provider Department 01/21/25 11:00 AM ANDRIA BOSTON INTMWS During your visit today, we recorded the following information about you: Temperature Pulse Respiration Blood pressure 99.9 degrees 69/minute 20/minute 90/57 Weight 69.2 kg Andria Boston MD 01/21/2025 11:39 AM Signed This note was created using Starteedriter. Subjective Mattie Grisel Herron is a 85 year old female. Patient presents with: Cough: X1 month with lack of energy AND fatigue Kami is a 85-year-old female presenting with a persistent cough and intermittent diarrhea. She is accompanied by a family member who is providing history on her behalf. Kami has been experiencing a persistent cough for approximately 1 month, characterized by episodes of deep coughing lasting about 5 minutes, during which she expectorates green sputum. The cough has reportedly worsened over the past 2 weeks. She was evaluated at an urgent care clinic recently, where she was prescribed a cough suppressant, which has not provided relief. Prior to this, she completed a 10-day course of doxycycline in early November, which seemed to improve her symptoms temporarily. However, the cough never fully resolved and has been persistent since then. She reports mild sinus pressure and post-nasal drip, as well as occasional wheezing and chest tightness during coughing episodes. Deep breaths also trigger coughing. She denies fevers, chills, or other signs of acute infection. She has a history of allergies, including itchy eyes, rhinorrhea, and sneezing, and was exposed to high pollen levels during a recent trip to [place]. Additionally, Kami reports intermittent diarrhea occurring approximately every 3 days, with sudden onset and no clear triggers. She denies constipation. Her fluid intake primarily consists of caffeinated beverages, and she drinks minimal water. She has a history of prescribed inhalers, which have not been used. She is currently taking Aricept. 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 [place], RCA stent November 2003. Coronary atherosclerosis of unspecified type of vessel, [place] or graft 07/07/2005 [place], PTCA 1988. [place], RCA stent November 2003. DDD (degenerative disc disease), lumbar 04/19/2014 Dr. 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 Galen Waters. 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 (HCC) 08/22/2024 Polycythemia 10/30/2017 Postmenopausal atrophic vaginitis Tremor, essential 06/11/2020 Type II or unspecified type diabetes mellitus without mention of complication, not stated as uncontrolled 10/01/2006 Ureterolithiasis 11/12/2010 Venous insufficiency of both lower extremities 11/03/2015 Current Outpatient Medications Medication Sig benzonatate (TESSALON PERLE) 100 mg capsule Take 1 capsule by mouth three times a day as needed for cough for up to 12 doses. atenolol (TENORMIN) 25 mg tablet Take 1 tablet by mouth every other day. gabapentin (NEURONTIN) 300 mg capsule Take 1 capsule by mouth three times a day for 180 days. mirabegron (MYRBETRIQ) 50 mg Tb24 Take 1 tablet by mouth once daily. PARoxetine (PAXIL) 10 mg tablet Take 1 tablet by mouth once daily. donepezil (ARICEPT) 10 mg tablet Take 1 tablet by mouth once daily. atorvastatin (LIPITOR) 80 mg tablet Take 1 tablet by mouth daily at bedtime. nitroglycerin sublingual (NITROQUICK) 0.4 mg SL tablet Dissolve 1 tablet under the tongue as needed. FOR CHEST PAIN. IF NO RELIEF CALL 911 triamcinolone acetonide (NASACORT AQ) 55 mcg nasal inhaler Use 2 Sprays in the nose once daily. CPAP CPAP mask and other supplies as needed. Mask per pt preference, tubing, filters, heated humidity, lif (more content not included)... Normal [facility] CNCOon 01-19-2025 CNCO Letter Text Normal [facility] CNOVon 01-18-2025 CNOV Office Visit (UCWSTR ) MATTIE HERRON ([id number]) 1940 F Date Time Provider Department 01/18/25 10:30 AM LORAINE SWIFT WSTR During your visit today, we recorded the following information about you: Temperature Pulse Respiration Blood pressure 99.3 degrees 70/minute 18/minute 120/68 Weight 69.4 kg Loraine Swift APRN.CNP 01/18/2025 11:39 AM Signed This note was created using Lucky Pai. Subjective Mattie Herron is a 85 year old female. HPI About a month ago patient was seen in urgent care in [place] where she was diagnosed with bronchitis and given prescription for doxycycline and Mucinex. states that symptoms seem to improve however over the last week her cough has returned. He otherwise denies any fever. He does state that she is tugging at her throat a little bit but otherwise she has not mentioned throat pain. Patient does have a history of dementia and is not a great historian. Review of Systems As above Objective BP 120/68 Pulse 70 Temp 37.4 ?C (99.3 ?F) Resp 18 Wt 69.4 kg (153 lb) SpO2 97% BMI 23.96 kg/m? Physical Exam Vitals and nursing note reviewed. Constitutional: General: She is not in acute distress. Appearance: Normal appearance. She is not ill-appearing. HENT: Head: Normocephalic. Mouth/Throat: Mouth: Mucous membranes are moist. Eyes: Conjunctiva/sclera: Conjunctivae normal. Cardiovascular: Rate and Rhythm: Normal rate and regular rhythm. Pulmonary: Effort: Pulmonary effort is normal. Breath sounds: Normal breath sounds. Musculoskeletal: General: Normal range of motion. Cervical back: Normal range of motion. Skin: General: Skin is warm and dry. Neurological: General: No focal deficit present. Mental Status: She is alert. Psychiatric: Mood and Affect: Mood normal. Behavior: Behavior normal. Assessment and Plan ASSESSMENT/PLAN: 1. Acute cough - ICD9: 786.2, ICD10: R05.1 Chest x-ray today showed no acute abnormalities. I did review with patient and family that symptoms are most likely postviral in origin. I did recommend close follow-up with PCP and patient was given a prescription for Tessalon Perles for cough. -Flu and COVID testing was performed however as symptoms have been ongoing for at least a week there is no specific treatment indicated. - BENZONATATE 100 MG CAPSULE - XR CHEST 2V FRONTAL/LAT - COVID AND INFLUENZA A/B AND RSV PCR, ROUTINE Loraine Swift APRN.OUTSIDE SALES ACCOUNT REPRESENTATIVE Allergies As of Date: 01/18/2025 Noted Allergy Reaction AMOXICILLIN 02/27/2021 1 - Mental Status Change BEE STING 06/21/2012 4 - Hives 7 - Swelling 12 - Shortness of Breath PERCOCET (OXYCODONE-ACETAMINOPHEN) 015 14 - Other: See Comments Comments: Patient passed out ROSUVASTATIN 09/15/2011 14 - Other: See Comments Comments: Leg cramps. SULFA (SULFONAMIDE ANTIBIOTICS) 01/04/2004 VICODIN (HYDROCODONE-ACETAMINOPHE*2014 14 - Other: See Comments Comments: Patient passed out from medication ZOCOR (SIMVASTATIN) 04/09/2006 14 - Other: See Comments CLAVULANIC ACID 01/26/2021 9 - Itching Date Reviewed: 01/18/2025 Reviewed by: Loraine Swift APRN.OUTSIDE SALES ACCOUNT REPRESENTATIVE - Fully Assessed Reason for Visit: Chest Congestion [236] Cmt: cough x 1 month Primary Visit Diagnosis:Acute cough [R05.1] Order(s):benzonatate (TESSALON PERLE) 100 mg capsuleTake 1 capsule by mouth three times a day as needed for cough for up to 12 doses.Disp: 12 capsuleRfl: 0 XR CHEST 2V FRONTAL/LAT [[id number]] Order #: [id number] FUTURE COVID AND INFLUENZA A/B AND RSV PCR, ROUTINE [SQCVFLRS] Order #: [id number]. #:[id number] Prescriptions as of 01/18/2025 - benzonatate (TESSALON PERLE) 100 mg capsule Take 1 capsule by mouth three times a day as needed for cough for up to 12 doses. - oseltamivir (TAMIFLU) 6 mg/mL susr oral liquid TAKE 5ML BY MOUTH TWICE DAILY FOR 4 DAYS. DISCARD THE REMAINDER - atenolol (TENORMIN) 25 mg tablet Take 1 tablet by mouth every other day. - gabapentin (NEURONTIN) 300 mg capsule Take 1 capsule by mouth three times a day for 180 days. - mirabegron (MYRBETRIQ) 50 mg Tb24 Take 1 tablet by mouth once daily. - PARoxetine (PAXIL) 10 mg tablet Take 1 tablet by mouth once daily. - donepezil (ARICEPT) 10 mg tablet Take 1 tablet by mouth once daily. - atorvastatin (LIPITOR) 80 mg tablet Take 1 tablet by mouth daily at bedtime. - nitroglycerin sublingual (NITROQUICK) 0.4 mg SL tablet Dissolve 1 tablet under the tongue as needed. FOR CHEST PAIN. IF NO RELIEF CALL 911 - triamcinolone acetonide (NASACORT AQ) 55 mcg nasal inhaler Use 2 Sprays in the nose once daily. - CPAP CPAP mask and other supplies as needed. Mask per pt preference, tubing, filters, heated humidity, lifetime supplies. Dx: JL on CPAP. G47.33. - Cholecalciferol, Vitamin D3, 2,000 unit cap Take 2 capsules by mouth once daily. - ASPIRIN 81 MG TAB (more content not included)... [facility]ATT[facility] HERORN ([id number]) 1940 F Date Time Provider Department 01/18/25 LORAINE SWIFT [facility] During your visit today, we recorded the following information about you: Loraine Swift, CONTACT WORKER LITHOGRAPHY.[facility] 01/18/2025 1:58 PM Addendum I did attempt to contact patient to inform them that the chest x-ray was negative showing no signs of bacterial pneumonia. I do suspect that symptoms are more consistent with a postviral cough and I recommend that she use the cough medicine as prescribed and follow-up with her family doctor. [id number] was able to make contact with and explained results. Family comfortable with plan. Allergies As of Date: 01/18/2025 Noted Allergy Reaction AMOXICILLIN 02/27/2021 1 - Mental Status Change BEE STING 06/21/2012 4 - Hives 7 - Swelling 12 - Shortness of Breath PERCOCET (OXYCODONE-ACETAMINOPHEN) 015 14 - Other: See Comments Comments: Patient passed out ROSUVASTATIN 09/15/2011 14 - Other: See Comments Comments: Leg cramps. SULFA (SULFONAMIDE ANTIBIOTICS) 01/04/2004 VICODIN (HYDROCODONE-ACETAMINOPHE*2014 14 - Other: See Comments Comments: Patient passed out from medication ZOCOR (SIMVASTATIN) 04/09/2006 14 - Other: See Comments CLAVULANIC ACID 01/26/2021 9 - Itching Date Reviewed: 01/18/2025 Reviewed by: Loraine Swift, GERARDO.OUTSIDE SALES ACCOUNT REPRESENTATIVE - Fully Assessed Reason for Visit: Results [95] Prescriptions as of 01/18/2025 - benzonatate (TESSALON PERLE) 100 mg capsule Take 1 capsule by mouth three times a day as needed for cough for up to 12 doses. - oseltamivir (TAMIFLU) 6 mg/mL susr oral liquid TAKE 5ML BY MOUTH TWICE DAILY FOR 4 DAYS. DISCARD THE REMAINDER - atenolol (TENORMIN) 25 mg tablet Take 1 tablet by mouth every other day. - gabapentin (NEURONTIN) 300 mg capsule Take 1 capsule by mouth three times a day for 180 days. - mirabegron (MYRBETRIQ) 50 mg Tb24 Take 1 tablet by mouth once daily. - PARoxetine (PAXIL) 10 mg tablet Take 1 tablet by mouth once daily. - donepezil (ARICEPT) 10 mg tablet Take 1 tablet by mouth once daily. - atorvastatin (LIPITOR) 80 mg tablet Take 1 tablet by mouth daily at bedtime. - nitroglycerin sublingual (NITROQUICK) 0.4 mg SL tablet Dissolve 1 tablet under the tongue as needed. FOR CHEST PAIN. IF NO RELIEF CALL 911 - triamcinolone acetonide (NASACORT AQ) 55 mcg nasal inhaler Use 2 Sprays in the nose once daily. - CPAP CPAP mask and other supplies as needed. Mask per pt preference, tubing, filters, heated humidity, lifetime supplies. Dx: JL on CPAP. G47.33. - Cholecalciferol, Vitamin D3, 2,000 unit cap Take 2 capsules by mouth once daily. - ASPIRIN 81 MG TAB once daily Problem List As Of Date 01/18/2025 Noted Resolved Coronary atherosclerosis [I25.10] 07/07/2005 Mixed hyperlipidemia [E78.2] 07/07/2005 AORTIC ATRESIA/STENOSIS [Q25.29, Q25.1] 07/07/2005 11/03/2015 ESOPHAGEAL REFLUX [K21.9] 07/07/2005 Anxiety state [F41.1] 07/07/2005 CHRONIC RHINITIS [J31.0] 07/07/2005 Benign neoplasm of colon [D12.6] 08/05/2005 08/22/2024 Postmenopausal atrophic vaginitis [N95.2] 04/20/2006 11/03/2015 TOBACCO USE DISORDER [F17.200] 06/08/2006 SEBACEOUS CYST [L72.3] 01/18/2007 01/29/2009 Esophagitis, unspecified [K20.90] 09/30/2007 11/03/2015 DIAPHRAGMATIC HERNIA [K44.9] 09/30/2007 01/29/2009 ACUTE GASTRITIS W/O HEMORRHAGE [K29.00] 09/30/2007 01/29/2009 Hematuria [599.7] 02/17/2008 02/12/2011 Urethritis, unspecified [N34.2] 03/22/2008 02/12/2011 Trigonitis [N30.30] 03/22/2008 05/09/2013 Other B-complex deficiencies [E53.8] 03/29/2008 02/12/2011 Pain in joint, lower leg [M25.569] 05/28/2009 11/03/2015 Ureterolithiasis [N20.1] 11/12/2010 02/12/2011 JL (obstructive sleep apnea) [G47.33] 10/16/2011 05/22/2015 Aortic valve sclerosis [I35.8] 04/02/2012 Bilateral carotid artery stenosis [I65.23] 04/02/2012 Personal history of colonic polyps [Z86.0100] 06/07/2012 11/03/2016 Osteoporosis, 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] 09/14/2012 DDD (degenerative disc disease), lumbar [M51.36*04/19/2014 Vitamin D deficiency [E55.9] 05/02/2015 JL on CPAP [G47.33] 05/22/2015 Venous insufficiency of both lower extremities *11/03/2015 02/18/2024 Arteriosclerotic heart disease (ASHD) [I25.10] 06/10/2016 05/04/2017 Primary hypertension [I10] 06/10/2016 Diabetic peripheral neuropathy associated with *05/04/2017 Polycythemia [D75.1] 10/30/2017 Other microscopic hematuria [R31.29] 11/04/2017 06/11/2020 Urgency incontinence [N39.41] 05/10/2018 Excessive sweating, local [L74.519] 05/19/2019 02/18/2024 Nocturnal leg cramps [G47.62] 05/19/2019 02/18/2024 Tremor, essential [G25.0] 06/11/2020 08/22/2024 Gait abnormality [R26.9] 06/11/2020 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 behavioral disturbanc*10/15/2023 CAD S/P percutaneous coronary angioplasty [I25.*05/18/2024 PAD (peripheral artery disease) (HCC) [I73.9] 05/18/2024 Prediabetes [R73.03] (more content not included)... Normal [facility] COVID & INFLUENZA A/B & RSV PCR, ROUTINEon 01-18-2025 FLUAV RNA MARIN+probe Ql (Unsp spec) Not detected Not Detected [facility] FLUBV RNA MARIN+probe Ql (Unsp spec) Not detected Not Detected [facility] Interpretation and review of laboratory results Normal [facility] RSV A RNA MARIN+probe Ql (Unsp spec) Not detected Not Detected [facility] SARS-CoV-2 (COVID-19) RNA MARIN+probe Ql (Unsp spec) Not detected See comment [facility] Reference Range (the expected result in uninfected individuals): Not detected [facility] XR CHEST 2V FRONTAL/LATon XR CHEST 2V FRONTAL/LAT * * *Final Report* * * DATE OF EXAM: Jan 18 2025 11:08AM WOX [id number] - XR CHEST 2V FRONTAL/LAT / PROCEDURE REASON: Acute cough * * * * Physician Interpretation * * * * EXAMINATION: CHEST RADIOGRAPH (2 VIEW FRONTAL and LATERAL) CLINICAL HISTORY: Acute cough MQ: XC2_6 EXAM DATE/TIME: 01/18/2025 11:08 AM COMPARISON: Chest x-ray dated 08/29/2015 RESULT: Lines, tubes, and devices: None. Lungs and pleura: Mild biapical pleural thickening. No consolidation. No lung mass. No pleural effusion. No pneumothorax. Cardiomediastinal silhouette: Normal cardiomediastinal silhouette. Bones and soft tissues: Osseous demineralization. IMPRESSION: No acute radiographic abnormality. Web Administrator: [facility] Transcribe Date/Time: Jan 18 2025 11:16A Dictated by : BRANDI HERNANDEZ MD This examination was interpreted and the report reviewed and electronically signed by: BRANDI HERNANDEZ MD on Jan 18 2025 11:16AM EST [id number] Normal [facility] XR Chest PA and Lateralon IMPRESSION: No acute radiographic abnormality. Web Administrator: [facility] Transcribe Date/Time: Jan 18 2025 11:16A Dictated by : BRANDI HERNANDEZ MD This examination was interpreted and the report reviewed and electronically signed by: BRANDI HERNANDEZ MD on Jan 18 2025 11:16AM EST DIVISION OF RADIOLOGY * * *Final Report* * * DATE OF EXAM: Jan 18 2025 11:08AM WOX [id number] - XR CHEST 2V FRONTAL/LAT / PROCEDURE REASON: Acute cough * * * * Physician Interpretation * * * * EXAMINATION: CHEST RADIOGRAPH (2 VIEW FRONTAL & LATERAL) CLINICAL HISTORY: Acute cough MQ: XC2_6 EXAM DATE/TIME: 01/18/2025 11:08 AM COMPARISON: Chest x-ray dated 08/29/2015 RESULT: Lines, tubes, and devices: None. Lungs and pleura: Mild biapical pleural thickening. No consolidation. No lung mass. No pleural effusion. No pneumothorax. Cardiomediastinal silhouette: Normal cardiomediastinal silhouette. Bones and soft tissues: Osseous demineralization. DIVISION OF RADIOLOGY Provider, [facility] - 01/18/2025 * * *Final Report* * * DATE OF EXAM: Jan 18 2025 11:08AM WOX [id number] - XR CHEST 2V FRONTAL/LAT / PROCEDURE REASON: Acute cough * * * * Physician Interpretation * * * * EXAMINATION: CHEST RADIOGRAPH (2 VIEW FRONTAL & LATERAL) CLINICAL HISTORY: Acute cough MQ: XC2_6 EXAM DATE/TIME: 01/18/2025 11:08 AM COMPARISON: Chest x-ray dated 08/29/2015 RESULT: Lines, tubes, and devices: None. Lungs and pleura: Mild biapical pleural thickening. No consolidation. No lung mass. No pleural effusion. No pneumothorax. Cardiomediastinal silhouette: Normal cardiomediastinal silhouette. Bones and soft tissues: Osseous demineralization. IMPRESSION IMPRESSION: No acute radiographic abnormality. Web Administrator: [facility] Transcribe Date/Time: Jan 18 2025 11:16A Dictated by : BRANDI HERNANDEZ MD This examination was interpreted and the report reviewed and electronically signed by: BRANDI HERNANDEZ MD on Jan 18 2025 11:16AM EST [facility] Radiology Study observation (narrative) [facility] XR Chest PA and LateralOrder ed By: [facility] Provider on 01-18-2025 [facility] MR/BMS.[place] 12-02-2024 MR/BMS.BVS [facility] Vascular Surgery [address] [place] [address] OFFICE VISIT Date of Service: 12/02/24 MR#: [id number] Acct: [id number] Name: MATTIE HERRON Rep #: [id number] : 1940 Provider: BOB Lee Age/Sex: 84/F Location: [facility] [place] Status: Signed Intake Vital Signs 11/11/24 13:00 11/20/24 00:57 12/02/24 15:47 Height 5 ft 7 in 5 ft 7 in Weight: 153 lb BP 121/66 H Blood Pressure Location Lt brachial Position Sitting Respiration 16 Pulse 61 Pulse Source Monitor Temp 98 F Temp Source Temporal Pulse Oximetry (%) 95 Oxygen Delivery Method room air Intake Visit Reasons: B/L Carotid artery disease Is patient in pain?: No Allergies hydrocodone Allergy (Verified 12/02/24 15:48) Rash Penicillins (PCN) Allergy (Verified 12/02/24 15:48) Other Sulfa (Sulfonamide Antibiotics) Allergy (Verified 12/02/24 15:48) Unknown amoxicillin (From Augmentin) Adverse Reaction (Mild, Verified 12/02/24 15:48) itching clavulanic acid (From Augmentin) Adverse Reaction (Mild, Verified 12/02/24 15:48) itching acetaminophen (From Vicodin) Adverse Reaction (Verified 12/02/24 15:48) Other hydrocodone bitartrate (From Vicodin) Adverse Reaction (Verified 12/02/24 15:48) Other lovastatin (From Mevacor) Adverse Reaction (Verified 12/02/24 15:48) Other rosuvastatin calcium (From Crestor) Adverse Reaction (Verified 12/02/24 15:48) Other simvastatin (From Zocor) Adverse Reaction (Verified 12/02/24 15:48) Other Medications ???Medication ???Instructions ???Recorded ???Confirmed ???Type aspirin 81 mg chewable tablet 81 mg PO DAILY@0800 preventative 1 12/02/24 History atenolol 25 mg tablet 25 mg PO DAILY heart 07/06/1404/21 History atorvastatin 80 mg tablet 80 mg PO QHS cholesterol 09/02/19 12/02/24 History gabapentin 300 mg capsule 300 mg PO TID neuropathy 09/18/22 12/02/24 History cholecalciferol (vitamin D3) 25 25 mcg PO BID vitamin 11/10/2404/21 History mcg (1,000 unit) capsule donepezil 10 mg tablet 5 mg PO DAILY memory 11/10/2404/21 History mirabegron 50 mg tablet,extended 50 mg PO DAILY bladder 11/10/24 History release 24 hr paroxetine HCl 10 mg tablet 10 mg PO DAILY mood 11/10/2412/02 History triamcinolone acetonide 55 mcg 2 spray intranasal DAILY PRN 11/1012/02/24 History nasal spray aerosol (24 Hour Nasal congestion Allergy) Is last menstrual period known: No Post menopausal: Yes Patient : No Have you fallen in the past year?: No PFSH Medical History Alzheimer's dementia Abdominal aortic aneurysm without rupture Tobacco abuse Aortic valve sclerosis Old myocardial infarction JL on CPAP PVD (peripheral vascular disease) Presence of stent in coronary artery ( 12/18/03) Stenosis of infrarenal abdominal aorta due to atherosclerosis ( 03/11/04) Diabetic peripheral neuropathy associated with type 2 diabetes mellitus Type 2 diabetes mellitus DDD (degenerative disc disease) Bilateral carotid artery disease GERD (gastroesophageal reflux disease) Essential hypertension Mixed hyperlipidemia Atherosclerotic heart disease of [place] coronary artery without angina pectoris Surgical History History of left breast biopsy Cataract extraction status of left eye History of surgery on wrist History of cystoscopy Presence of coronary angioplasty implant and graft ( 12/18/03) Family History Father Myocardial infarction Heart disease CVA (cerebral vascular accident) Diabetes Brother CAD (coronary artery disease) Social History Smoking Status: Current every day smoker tobacco type: cigarettes alcohol intake: never substance use type: does not use caffeine: Yes Type: carbonated beverages Number of servings: 3 and tea Number of servings: 3 HPI HPI HPI: MATTIE HERRON, is a 84 F who presents to the office today for evaluation of carotid artery stenosis. She does have moderate dementia and is accompanied to her appointment today by her who also supplements history. She presented to the ER initially 11/10/24; in ER note, report of difficulty speaking and R facial droop prior to presentation (mild difficulty speaking on presentation but no facial droop or lateralized weakness in the ER); in hospitalist admission note report of L facial droop and difficulty speaking prior to presentation (all symptoms resolved on their exam). She also had some respiratory symptoms and her had the same at that time. In the office today, her recalls generalized w (more content not included)... Normal [facility] 12 Lead EKGon 11-20-2024 12 Lead EKG [facility] Cardiovascular Services [address] [place] [address] 12 Lead EKG 11/20/24 0212 MR#: [id number] Acct: [id number] Name: MATTIE HERRON Rep #: [id number] : 1940 84 From: Michael Mccoy MD Attending Dr: Status: DEP ER Ordering Dr: Maury Melton DO Date: 11/20/24 Location: ED Sex: F C Admitted: Test Reason : DYSRHYTHMIA Blood Pressure : */* mmHG Vent. Rate : 62 BPM Atrial Rate : 62 BPM P-R Int : 178 ms QRS Dur : 68 ms QT Int : 410 ms P-R-T Axes : 18 -1 58 degrees QTcB Int : 416 ms Normal sinus rhythm Normal ECG Confirmed by Michael Mccoy ([id number]), editorial manager TAZ MCNALLY ([id number]) on 11/21/2024 10:30:07 AM Referred By: Confirmed By: Michael Mccoy 11/21/24 1030 Date ___ Michael Mccoy MD CC: Dr. Matheus Fajardo MD; Maury Melton DO Signed Normal [facility] Basic Metabolic Profile (BMP )on 11-20-2024 BUN/CRE 12.8 RATIO Normal 10-20 [facility] Comment on above: Performed By: #### L 300.4310, L100.0100, L500.2500, L300.3900, L501.5200 #### [facility] [address] [place], [address] CA,Total 9.1 mg/dL Normal 8.5-10.1 [facility] Comment on above: Performed By: #### L 300.4310, L100.0100, L500.2500, L300.3900, L501.5200 #### [facility] [address] [place], [address] Chloride [Moles/Vol] 102 mmol/L Normal 98-107 [facility] Comment on above: Performed By: #### L 300.4310, L100.0100, L500.2500, L300.3900, L501.5200 #### [facility] [facility] [address] [place], [address] CO2 [Moles/Vol] 26.0 mmol/L Normal 21.0-32.0 [facility] Comment on above: Performed By: #### L 300.4310, L100.0100, L500.2500, L300.3900, L501.5200 #### [facility] [address] [place], [address] Creatinine [Mass/Vol] 0.86 mg/dL Normal 0.55-1.02 [facility] Comment on above: Result Comment: The validity of the calculated GFR GFRAA in patients over 70 years has not been determined. Clinical correlation is essential. Performed By: #### L 300.4310, L100.0100, L500.2500, L300.3900, L501.5200 #### [facility] [address] [place], [address] ECRCL 46.51 ml/min Normal [facility] Comment on above: Performed By: #### L 300.4310, L100.0100, L500.2500, L300.3900, L501.5200 #### [facility] [address] [place], [address] EST GFR - AA 81 mL/min Normal >60 [facility] Comment on above: Result Comment: Afri can Martiniquais GFR Calc Performed By: #### L 300.4310, L100.0100, L500.2500, L300.3900, L501.5200 #### [facility] [address] [place], [address] GAP 7 Normal 5-15 [facility] Comment on above: Performed By: #### L 300.4310, L100.0100, L500.2500, L300.3900, L501.5200 #### [facility] [address] [place], [address] GFR/1.73 sq M.predicted among non-blacks MDRD (S/P/Bld) [Vol rate/Area] 67 mL/min/{1.73_m2} Normal >60 [facility] Comment on above: Result Comment: Non- GFR Calc Performed By: #### L 300.4310, L100.0100, L500.2500, L300.3900, L501.5200 #### [facility] [address] [place], [address] Glucose [Mass/Vol] 126 mg/dL High 74-106 [facility] Comment on above: Result Comment: Fast ing Glucose result greater than or equal to 126 mg/dL suggests DIABETES MELLITUS per A.D.A. criteria. Performed By: #### L 300.4310, L100.0100, L500.2500, L300.3900, L501.5200 #### [facility] [address] [place], [address] Potassium [Moles/Vol] 3.7 mmol/L Normal 3.5-5.1 [facility] Comment on above: Performed By: #### L 300.4310, L100.0100, L500.2500, L300.3900, L501.5200 #### [facility] [address] [place], [address] Sodium [Moles/Vol] 136 mmol/L Normal 136-145 [facility] Comment on above: Performed By: #### L 300.4310, L100.0100, L500.2500, L300.3900, L501.5200 #### [facility] [address] [place], [address] Urea nitrogen [Mass/Vol] 11 mg/dL Normal 7-18 [facility] Comment on above: Performed By: #### L 300.4310, L100.0100, L500.2500, L300.3900, L501.5200 #### [facility] [address] [place], [address] CBC W/Diff, Automatedon 02-2 Absolute Lymph 1.67 X10 3/uL Normal 0.83-4.51 [facility] Comment on above: Performed By: #### L 300.4310, L100.0100, L500.2500, L300.3900, L501.5200 #### [facility] [address] [place], [address] Absolute Neut 10.8 X10 3/uL High 2.0-7.7 [facility] Comment on above: Performed By: #### L 300.4310, L100.0100, L500.2500, L300.3900, L501.5200 #### [facility] [address] [place], [address] Basophils/100 WBC (Bld) 0.4 % Normal 0-1 [facility] Comment on above: Performed By: #### L 300.4310, L100.0100, L500.2500, L300.3900, L501.5200 #### [facility] [address] [place], [address] Eosinophils/100 WBC (Bld) 0.1 % Normal 0-5 [facility] Comment on above: Performed By: #### L 300.4310, L100.0100, L500.2500, L300.3900, L501.5200 #### [facility] [address] [place], [address] Erythrocyte distribution width (RBC) [Ratio] 14.3 % Normal 11.6-14.6 [facility] Comment on above: Performed By: #### L 300.4310, L100.0100, L500.2500, L300.3900, L501.5200 #### [facility] [address] [place], [address] Hematocrit (Bld) [Volume fraction] 43.1 % Normal 37-47 [facility] Comment on above: Performed By: #### L 300.4310, L100.0100, L500.2500, L300.3900, L501.5200 #### [facility] [address] [place], [address] Hemoglobin (Bld) [Mass/Vol] 14.2 g/dL Normal 12.0-15.0 [facility] Comment on above: Performed By: #### L 300.4310, L100.0100, L500.2500, L300.3900, L501.5200 #### [facility] [address] [place], [address] IG% 0.600 Normal 0.0-0.9 [facility] Comment on above: Result Comment: IG% - Immature Granulocytes (promyelocytes, myelocytes and metamyelocytes) > 1% indicates that a LEFT SHIFT is Present. Performed By: #### L 300.4310, L100.0100, L500.2500, L300.3900, L501.5200 #### [facility] [address] [facility] [place], [address] Lymphocytes/100 WBC (Bld) 12.0 % Low 19-41 [facility] Comment on above: Performed By: #### L 300.4310, L100.0100, L500.2500, L300.3900, L501.5200 #### [facility] [address] [place], [address] MCH (RBC) [Entitic mass] 28.3 pg Normal 27.0-32.0 [facility] Comment on above: Performed By: #### L 300.4310, L100.0100, L500.2500, L300.3900, L501.5200 #### [facility] [address] [facility] [place], [address] MCHC (RBC) [Mass/Vol] 32.9 g/dL Normal 32-36 [facility] Comment on above: Performed By: #### L 300.4310, L100.0100, L500.2500, L300.3900, L501.5200 #### [facility] [address] [place], [address] MCV (RBC) [Entitic vol] 85.9 fL Normal 81-99 [facility] Comment on above: Performed By: #### L 300.4310, L100.0100, L500.2500, L300.3900, L501.5200 #### [facility] [address] [place], [address] Monocytes/100 WBC (Bld) 9.0 % Normal 0-10 [facility] Comment on above: Performed By: #### L 300.4310, L100.0100, L500.2500, L300.3900, L501.5200 #### [facility] [address] [place], [address] Neutrophils/100 WBC (Bld) 77.9 % High 47-70 [facility] Comment on above: Performed By: #### L 300.4310, L100.0100, L500.2500, L300.3900, L501.5200 #### [facility] [address] [place], [address] Nucleated RBC (Bld) [#/Vol] 0 10*3/uL Normal 0-5 [facility] Comment on above: Performed By: #### L 300.4310, L100.0100, L500.2500, L300.3900, L501.5200 #### [facility] [address] [place], [address] Platelet mean volume (Bld) [Entitic vol] 9.8 fL Normal 6.2-12.0 [facility] Comment on above: Performed By: #### L 300.4310, L100.0100, L500.2500, L300.3900, L501.5200 #### [facility] [address] [place], [address] Platelets (Bld) [#/Vol] 216 10*3/uL Normal 150-450 [facility] Comment on above: Performed By: #### L 300.4310, L100.0100, L500.2500, L300.3900, L501.5200 #### [facility] [address] [place], [address] RBC (Bld) [#/Vol] 5.02 10*6/uL Normal 4.2-5.4 [facility] Comment on above: Performed By: #### L 300.4310, L100.0100, L500.2500, L300.3900, L501.5200 #### [facility] [address] [place], [address] RDW SD 45.0 fl High 35.1-43.9 [facility] Comment on above: Performed By: #### L 300.4310, L100.0100, L500.2500, L300.3900, L501.5200 #### [facility] [address] [place], [address] WBC (Bld) [#/Vol] 13.9 10*3/uL High 4.4-11.0 [facility] Comment on above: Performed By: #### L 300.4310, L100.0100, L500.2500, L300.3900, L501.5200 #### [facility] [address] [place], [address] CTA Head AND Neck W/ Contras ton 11-20-2024 CTA Head AND Neck W/ Contrast [facility] [address] [place] [address] CTA Head AND Neck W/ Contrast MR#: [id number] Acct: [id number] Name: MATTIE HERRON Rep #: [id number] : 1940 F 84 From: Ruiz Montana MD PCP: Dr. Matheus Fajardo MD Status: [facility] Study: CTA Head AND Neck W/ Contrast Date of Exam: Exam# [id number] Ordering Dr: Maury Melton DO PROCEDURE: CTA HEAD AND NECK W/ CONTRAST REASON FOR EXAM: Weakness TECHNIQUE: CTA imaging of the head and neck from the aortic arch to the skull vertex with intravenous contrast. 3D reconstructions. COMPARISON: None. # of known CTs in the past 12 months: 0 # of known Cardiac Nuclear Medicine Studies in the past 12 months: 0 FINDINGS: Aortic Arch: Normal size and branching pattern. Mild atherosclerotic plaque. Brachiocephalic and Subclavians: Unremarkable RIGHT Carotid: Right CCA: Mild calcified and soft plaque. Right ICA: Mild calcified and soft plaque. Maximum stenosis (NASCET): 46 % Right ECA: Unremarkable. LEFT Carotid: Left CCA: Mild calcified and soft plaque. Left ICA: Mild calcified and soft plaque. Maximum stenosis (NASCET): 29 % Left ECA: Unremarkable. Vertebrals: Codominant. Arise from the subclavians. Both vertebrals form the basilar. RIGHT Vertebral: Unremarkable. LEFT Vertebral: Unremarkable. Ventricles, cisterns and sulci are mildly prominent. Nonspecific periventricular white matter changes are noted. No intracranial aneurysms or large vascular malformations are identified. Anterior cerebral arteries: Patent Middle cerebral arteries: Patent Basilar artery: Patent Posterior cerebral arteries: Patent Other major branches of the posterior circulation: Patent Major venous structures: Patent Other findings: No lymphadenopathy. Lung apices are clear. Bones are unremarkable. CT/CTA Head AND Neck W/ Contrast IMPRESSION: 1. Mild atherosclerotic disease with no hemodynamically significant stenosis in the arteries of the head and neck. 46% stenosis of the proximal right internal carotid artery by NASCET criteria 29% stenosis of the proximal left internal carotid artery by NASCET criteria 2. Age-appropriate volume loss and remote small vessel ischemic changes One or more dose reduction techniques were used (e.g., Automated exposure control, adjustment of the mA and/or kV according to patient size, use of iterative reconstruction technique). Reading Location: [facility] CC: Dr. Matheus Fajardo MD; Maury Melton DO Web Administrator: Signed Normal [facility] Chest 1 View (Portable)on Chest 1 View (Portable) [facility] Services [address] [place], [place] [address] Chest 1 View (Portable) MR#: [id number] Acct: [id number] Name: OKSANAROLANFATOUMATTIE Grisel Rep #: [id number] : 1940 F 84 From: Ruiz Montana MD PCP: Dr. Matheus Fajardo MD Status: [facility] ER Study: Chest 1 View (Portable) Date of Exam: 11/20/24 Exam# [id number] Ordering Dr: Maury Melton DO PROCEDURE: CHEST 1 VIEW (PORTABLE) REASON FOR EXAM: Weakness TECHNIQUE: Frontal view of the chest. COMPARISON: 11/10/2024. FINDINGS: The heart size is normal. There are atherosclerotic calcifications of the thoracic aorta. There are chronic-appearing changes of both lungs. Degenerative changes are identified within the thoracic spine. RAD/Chest 1 View (Portable) IMPRESSION: Chronic interstitial changes with left basilar opacity which may represent atelectasis, airspace disease, and/or pleural effusion [facility] CC: Dr. Matheus Fajardo MD; Maury Melton DO Web Administrator: Signed Normal [facility] Emergency Department Summary on 11-20-2024 Emergency Department Summary [facility] Medical Records Department [address] [place] [address] Emergency Department Summary 11/20/24 MR#: [id number] Acct: [id number] Name: MATTIE HERRON Rep #: [id number] : 1940 84 From: Maury Melton DO PCP: Dr. Matheus Fajardo MD Status:[facility] ER Location: ED HPI History of Present Illness Chief Complaint: Weakness Informant: patient, spouse/S.O. and family Narrative Narrative: Patient is a 84-year-old female with past medical history of tobacco abuse type 2 diabetes hypertension hyperlipidemia and previous TIA. The TIA occurred just recently and she was admitted and had a carotid duplex as well as MRI. Family states that the symptoms associate with the TA were weakness and the inability to stand. They state that this evening the patient could not get up and the symptoms lasted for a few hours and therefore as they are very similar nature to her recent TIA she was brought back in for evaluation [facility] Medical History (Updated 11/25/24 @ 07:[address] Maury Melton DO) Alzheimer's dementia Abdominal aortic aneurysm without rupture Tobacco abuse Aortic valve sclerosis Old myocardial infarction JL on CPAP PVD (peripheral vascular disease) Presence of stent in coronary artery ( 12/18/03) Stenosis of infrarenal abdominal aorta due to atherosclerosis ( 03/11/04) Diabetic peripheral neuropathy associated with type 2 diabetes mellitus Type 2 diabetes mellitus DDD (degenerative disc disease) Bilateral carotid artery disease GERD (gastroesophageal reflux disease) Essential hypertension Mixed hyperlipidemia Atherosclerotic heart disease of [place] coronary artery without angina pectoris Home Medications ???Medication ???Instructions ???Recorded ???Last Taken ???Type aspirin 81 mg chewable tablet 81 mg PO DAILY@0800 preventative 1 11/09/24 History atenolol 25 mg tablet 25 mg PO DAILY heart 07/06/1410/29 History atorvastatin 80 mg tablet 80 mg PO QHS cholesterol 09/02/19 11/09/24 History gabapentin 300 mg capsule 300 mg PO TID neuropathy 09/18/22 11/09/24 History cholecalciferol (vitamin D3) 25 25 mcg PO BID vitamin 11/10/2409/21 History mcg (1,000 unit) capsule donepezil 10 mg tablet 5 mg PO DAILY memory 11/10/2410/29 History mirabegron 50 mg tablet,extended 50 mg PO DAILY bladder 11/10/24 History release 24 hr paroxetine HCl 10 mg tablet 10 mg PO DAILY mood 11/10/24 Unkno wn History triamcinolone acetonide 55 mcg 2 spray intranasal DAILY PRN 11/10 Unknown History nasal spray aerosol (24 Hour Nasal congestion Allergy) oseltamivir 30 mg capsule 30 mg PO BID 4 days #8 caps Unknown Rx doxycycline hyclate 100 mg capsule 100 mg PO BID 10 days #20 caps 0 11/20/24 Unknown Rx Allergy/AdvReac Type Severity Reaction Status Date / Time hydrocodone Allergy Rash Verified 11/20/24 00:57 Penicillins (PCN) Allergy Other Verified 11/20/24 00:57 Sulfa (Sulfonamide Allergy Unknown Verified 11/20/24 00:57 Antibiotics) amoxicillin (From Augmentin) AdvReac Mild itching Verified 11/20/24 00:57 clavulanic acid (From AdvReac Mild itching Verified 11/20/24 00:57 Augmentin) acetaminophen (From Vicodin) AdvReac Other Verified 11/20/24 00:57 hydrocodone bitartrate (From AdvReac Other Verified 11/20/24 00:57 Vicodin) lovastatin (From Mevacor) AdvReac Other Verified 11/20/24 00:57 rosuvastatin calcium (From AdvReac Other Verified 11/20/24 00:57 Crestor) simvastatin (From Zocor) AdvReac Other Verified 11/20/24 00:57 Family History (Reviewed 06/05/23 @ 15:16 by Autumn Medina SOFTWARE DEVELOPMENT ADVISOR, SOFTWARE DEVELOPMENT ADVISOR-C) Father Myocardial infarction Heart disease CVA (cerebral vascular accident) Diabetes Brother CAD (coronary artery disease) Surgical History History of left breast biopsy Cataract extraction status of left eye History of surgery on wrist History of cystoscopy Presence of coronary angioplasty implant and graft ( 12/18/03) Social History (Updated 11/10/24 @ 15:41 by Karissa Lopez) Smoking Status: Current every day smoker tobacco type: cigarettes alcohol intake: never substance use type: does not use caffeine: Yes Type: carbonated beverages Number of servings: 3 and tea Number of servings: 3 ROS ROS ED ROS Narrative Please note review of systems may be unreliable secondary to patient's history of dementia Constitutional Constitutional ED: Denies chills or fever(s) Eyes Eyes: Denies blurry vision or change in vision ENT ENT ED: Denies rhinorrhea or sore throat Cardiovascular Cardiovascular: Denies chest pain, palpitations or racing heartbeat Respiratory/Chest Respiratory/Chest: Denies cough or dyspnea Gastrointestinal Gastrointestinal: Denies abdominal pain, diarrh (more content not included)... Normal [facility] Magnesiumon 11-20-2024 Magnesium [Mass/Vol] 2.0 mg/dL Normal 1.6-2.6 [facility] Comment on above: Performed By: #### L 300.4310, L100.0100, L500.2500, L300.3900, L501.5200 #### [facility] [address] [place], [address] Partial Thromboplast Timeon 11-20-2024 aPTT Coag (Bld) [Time] 34.9 s Normal 24.1-36.2 [facility] Comment on above: Performed By: #### L 300.4310, L100.0100, L500.2500, L300.3900, L501.5200 #### [facility] [address] [place], [address] Prothrombin Time w/INRon INR Coag (PPP) [Relative time] 1.1 {INR} Normal [facility] Comment on above: Performed By: #### L 300.4310, L100.0100, L500.2500, L300.3900, L501.5200 #### [facility] [address] [place], [address] PT Coag (PPP) [Time] 14.1 s Normal 11.7-14.9 [facility] Comment on above: Performed By: #### L 300.4310, L100.0100, L500.2500, L300.3900, L501.5200 #### [facility] [address] [place], [address] Urinalysis, Completeon 11-20 BACTERIA RARE Normal None Seen [facility] Comment on above: Order Comment: JOAN CTOR TO SPECIFY Performed By: #### L 400.0001 #### [facility] [address] [place], [address] EPI,SQUAMOUS 0-5 SEEN Normal 5-10 [facility] Comment on above: Order Comment: JOAN CTOR TO SPECIFY Performed By: #### L 400.0001 #### [facility] [address] [place], [address] RBC 0-5 SEEN Normal 0-5 [facility] Comment on above: Order Comment: JOAN CTOR TO SPECIFY Performed By: #### L 400.0001 #### [facility] [address] [place], [address] BILIRUBIN URINE Negative Normal Negative [facility] Comment on above: Order Comment: JOAN CTOR TO SPECIFY Performed By: #### L 400.0001 #### [facility] [address] [place], [address] Clarity (U) Clear Normal Clear [facility] Comment on above: Order Comment: JOAN CTOR TO SPECIFY Performed By: #### L 400.0001 #### [facility] [address] [place], [address] Color (U) Straw Normal Yellow [facility] Comment on above: Order Comment: JOAN CTOR TO SPECIFY Performed By: #### L 400.0001 #### [facility] [address] [place], [address] GLUCOSE, UR Normal Normal Normal [facility] Comment on above: Order Comment: JOAN CTOR TO SPECIFY Performed By: #### L 400.0001 #### [facility] [address] [place], [address] KETONE UR Negative Normal Negative [facility] Comment on above: Order Comment: JOAN CTOR TO SPECIFY Performed By: #### L 400.0001 #### [facility] [address] [place], [address] LEUK ESTERASE Negative Normal Negative [facility] Comment on above: Order Comment: JOAN CTOR TO SPECIFY Performed By: #### L 400.0001 #### [facility] [address] [place], [address] Nitrite Ql (U) Negative Normal Negative [facility] Comment on above: Order Comment: JOAN CTOR TO SPECIFY Performed By: #### L 400.0001 #### [facility] [address] [place], [address] OCCULT BLOOD-UR 25 /ul Abnormal Negative [facility] Comment on above: Order Comment: JOAN CTOR TO SPECIFY Performed By: #### L 400.0001 #### [facility] [address] [place], [address] pH UR 7.0 Normal 5.0 - 8.0 [facility] Comment on above: Order Comment: JOAN CTOR TO SPECIFY Performed By: #### L 400.0001 #### [facility] [address] [place], [address] PROT DIPSTX Negative Normal Negative [facility] Comment on above: Order Comment: JOAN CTOR TO SPECIFY Performed By: #### L 400.0001 #### [facility] [address] [place], [address] SP.GR. DIPSTX 1.005 Normal 1.002-1.03 0 [facility] Comment on above: Order Comment: JOAN CTOR TO SPECIFY Performed By: #### L 400.0001 #### [facility] [address] [place], [address] UROBILI Normal Normal Normal [facility] Comment on above: Order Comment: JOAN CTOR TO SPECIFY Performed By: #### L 400.0001 #### [facility] [address] [place], [address] Mucus Ql (Urine sed) 0 SEEN Normal [facility] Comment on above: Order Comment: JOAN CTOR TO SPECIFY Performed By: #### L 400.0001 #### [facility] [address] [place], [address] WBC 0 SEEN Normal 0-5 [facility] Comment on above: Order Comment: JOAN CTOR TO SPECIFY Performed By: #### L 400.0001 #### [facility] [address] [place], [address] CNOVon 11-14-2024 CNOV Office Visit (INTMWS ) MATTIE HERRON ([id number]) 1940 F Date Time Provider Department 11/14/24 2:20 PM MATHEUS FAJARDO INTMWS During your visit today, we recorded the following information about you: Temperature Pulse Respiration Blood pressure 97.9 degrees 64/minute 20/minute 86/46 Weight 69.2 kg Matheus Fajardo MD 11/14/2024 3:40 PM Signed This note was created using Starteed[employer]. Subjective Transitional Care Management Progress Note The patients TCM visit was performed within the 7 days of discharge. Patient's Date of discharge: 11/11/24 Date of initial coordinator contact after discharge: NA Discharge diagnosis: TIA, meningioma, carotid stenosis, metabolic encephalopathy, influenza. Medication review completed Yes Provider Documentation: In follow-up of hospitalization, Mattie Herron is a 84 year old female with the chief complaint of transition of care. I have reviewed the patient?s last hospital course including diagnostic testing performed during this hospitalization, their discharge medications, and my assessment and plan with the patient and spouse present at today?s visit. Mattie was admitted 11/10/24 with acute mental status change, decreased responsiveness. Other findings were dysarthria, left facial droop, influenza. Symptoms resolved and she was back to baseline. Stroke workup and tele-neurology consult was done. Carotid stenosis, meningioma, but no cerebral vascular accident was found. She was discharged to outpatient follow up, neurology follow up and vascular surgery consult. Spouse wants to transfer neurology care to local neurologist, including dementia care as well. It was increasingly difficult to take Mattie out of the house. Review of Systems Constitutional: Negative for appetite change, fatigue and fever. HENT: Negative for congestion and sore throat. Respiratory: Negative for cough and shortness of breath. Cardiovascular: Negative for chest pain, palpitations and leg swelling. Gastrointestinal: Negative for diarrhea, nausea and vomiting. Neurological: Negative for dizziness, facial asymmetry, weakness, numbness and headaches. ACTIVE PROBLEM LIST Coronary Atherosclerosis Mixed Hyperlipidemia Esophageal Reflux Anxiety State Chronic Rhinitis Tobacco Use Disorder Aortic Valve Sclerosis Bilateral Carotid Artery Stenosis Osteoporosis, Post-Menopausal Ddd (Degenerative Disc Disease), Lumbar Vitamin D Deficiency Jl On Cpap Primary Hypertension Diabetic Peripheral Neuropathy Associated With Type 2 Diabetes Mellitus (Hcc) Polycythemia Urgency Incontinence Gait Abnormality Moderate Dementia Without Behavioral Disturbance, Psychotic Disturbance, Mood Disturbance, Or Anxiety (Hcc) Cad S/P Percutaneous Coronary Angioplasty Pad (Peripheral Artery Disease) (Hcc) Nonrheumatic Aortic Valve Stenosis S/P Right Coronary Artery (Rca) Stent Placement Parkinson's Disease Without Dyskinesia Or Fluctuating Manifestations (Hcc) Meningioma (Hcc) Tia (Transient Ischemic Attack) Social History Tobacco Use Smoking status: Every Day Current packs/day: 0.66 Average packs/day: 0.7 packs/day for 57.5 years (38.6 ttl pk-yrs) Types: Cigarettes Start date: 06/30/1966 Smokeless tobacco: Never Vaping Use Vaping status: Never Used Substance Use Topics Alcohol use: No Drug use: No Current Outpatient Medications Medication Sig oseltamivir (TAMIFLU) 6 mg/mL susr oral liquid TAKE 5ML BY MOUTH TWICE DAILY FOR 4 DAYS. DISCARD THE REMAINDER gabapentin (NEURONTIN) 300 mg capsule Take 1 capsule by mouth three times a day for 180 days. mirabegron (MYRBETRIQ) 50 mg Tb24 Take 1 tablet by mouth once daily. PARoxetine (PAXIL) 10 mg tablet Take 1 tablet by mouth once daily. donepezil (ARICEPT) 10 mg tablet Take 1 tablet by mouth once daily. atorvastatin (LIPITOR) 80 mg tablet Take 1 tablet by mouth daily at bedtime. nitroglycerin sublingual (NITROQUICK) 0.4 mg SL tablet Dissolve 1 tablet under the tongue as needed. FOR CHEST PAIN. IF NO RELIEF CALL 911 triamcinolone acetonide (NASACORT AQ) 55 mcg nasal inhaler Use 2 Sprays in the nose once daily. CPAP CPAP mask and other supplies as needed. Mask per pt preference, tubing, filters, heated humidity, lifetime supplies. Dx: JL on CPAP. G47.33. Cholecalciferol, Vitamin D3, 2,000 unit cap Take 2 capsules by mouth once daily. ASPIRIN 81 MG TAB once daily atenolol (TENORMIN) 25 mg tablet Take 1 tablet by mouth every other day. No current facility-administered medications for this visit. Objective BP (!) 86/46 (BP Site: Left Arm, BP Position: Sitting, BP Cuff Size: Large Adult) Pulse 64 Temp 36.6 ?C (97.9 ?F) (Temporal) Resp 20 Wt 69.2 kg (152 lb 8.9 oz) BMI 23.89 kg/m? Physical Exam Constitutional: General: She is not in acute distress. Appearance: She is not ill (more content not included)... Normal [facility] Brain WITH Contraston 2024 Brain WITH Contrast [facility] Imaging Services [address] [place] [address] Brain WITH Contrast MR#: [id number] Acct: [id number] Name: MATTIE HERRON Rep #: [id number] : 1940 F 84 From: Ruiz Montana MD PCP: Dr. Matheus Fajardo MD Status: ADM STORMY Study: Brain WITH Contrast Date of Exam: 11/11/24 Exam# [id number] Ordering Dr: Trino Purcell MD PROCEDURE: BRAIN WITH CONTRAST REASON FOR EXAM: Evaluate for left temporal meningioma TECHNIQUE: Brain MRI with intravenous contrast. COMPARISON: 11/10/2024 FINDINGS: This is a limited exam including postcontrast imaging only. Brain: There is a homogeneously enhancing mass in the periphery of the anterior left temporal lobe measuring 9.7 x 13.2 x 14.5 mm. The ventricles, sulci and cisterns are mildly prominent. Major Intracranial Vessels: Unremarkable MRI/Brain WITH Contrast IMPRESSION: Left anterior temporal lobe meningioma. Reading Location: [facility] CC: Dr. Trino Purcell MD; Dr. Matheus Fajardo MD Web Administrator: Signed Normal [facility] CBC W/Diff, Automatedon 10-29 Absolute Lymph 1.18 X10 3/uL Normal 0.83-4.51 [facility] Comment on above: Performed By: #### L 501.5200, L501.2300, L500.4100, L100.0100, L500.4050 ####[facility] [address] [place], [address] Absolute Neut 4.7 X10 3/uL Normal 2.0-7.7 [facility] Comment on above: Performed By: #### L 501.5200, L501.2300, L500.4100, L100.0100, L500.4050 ####[facility] [address] [place], [address] Basophils/100 WBC (Bld) 0.3 % Normal 0-1 [facility] Comment on above: Performed By: #### L 501.5200, L501.2300, L500.4100, L100.0100, L500.4050 ####[facility] [address] [place], [address] Eosinophils/100 WBC (Bld) 0.6 % Normal 0-5 [facility] Comment on above: Performed By: #### L 501.5200, L501.2300, L500.4100, L100.0100, L500.4050 ####[facility] [address] [place], [address] Erythrocyte distribution width (RBC) [Ratio] 14.6 % Normal 11.6-14.6 [facility] Comment on above: Performed By: #### L 501.5200, L501.2300, L500.4100, L100.0100, L500.4050 ####[facility] [address] [place], [address] Hematocrit (Bld) [Volume fraction] 44.7 % Normal 37-47 [facility] Comment on above: Performed By: #### L 501.5200, L501.2300, L500.4100, L100.0100, L500.4050 ####[facility] [address] [place], [address] Hemoglobin (Bld) [Mass/Vol] 14.9 g/dL Normal 12.0-15.0 [facility] Comment on above: Performed By: #### L 501.5200, L501.2300, L500.4100, L100.0100, L500.4050 ####[facility] [address] [place], [address] IG% 0.500 Normal 0.0-0.9 [facility] Comment on above: Result Comment: IG% - Immature Granulocytes (promyelocytes, myelocytes and metamyelocytes) > 1% indicates that a LEFT SHIFT is Present. Performed By: #### L 501.5200, L501.2300, L500.4100, L100.0100, L500.4050 ####[facility] [address] [place], [address] Lymphocytes/100 WBC (Bld) 18.0 % Low 19-41 [facility] Comment on above: Performed By: #### L 501.5200, L501.2300, L500.4100, L100.0100, L500.4050 ####[facility] [address] [place], [address] MCH (RBC) [Entitic mass] 28.7 pg Normal 27.0-32.0 [facility] Comment on above: Performed By: #### L 501.5200, L501.2300, L500.4100, L100.0100, L500.4050 ####[facility] [address] [place], [address] MCHC (RBC) [Mass/Vol] 33.3 g/dL Normal 32-36 [facility] Comment on above: Performed By: #### L 501.5200, L501.2300, L500.4100, L100.0100, L500.4050 ####[facility] [address] [place], [address] MCV (RBC) [Entitic vol] 86.0 fL Normal 81-99 [facility] Comment on above: Performed By: #### L 501.5200, L501.2300, L500.4100, L100.0100, L500.4050 ####[facility] [address] [place], [address] Monocytes/100 WBC (Bld) 9.3 % Normal 0-10 [facility] Comment on above: Performed By: #### L 501.5200, L501.2300, L500.4100, L100.0100, L500.4050 ####[facility] [address] [place], [address] Neutrophils/100 WBC (Bld) 71.3 % High 47-70 [facility] Comment on above: Performed By: #### L 501.5200, L501.2300, L500.4100, L100.0100, L500.4050 ####[facility] [address] [place], [address] Nucleated RBC (Bld) [#/Vol] 0 10*3/uL Normal 0-5 [facility] Comment on above: Performed By: #### L 501.5200, L501.2300, L500.4100, L100.0100, L500.4050 ####[facility] [address] [place], [address] Platelet mean volume (Bld) [Entitic vol] 11.2 fL Normal 6.2-12.0 [facility] Comment on above: Performed By: #### L 501.5200, L501.2300, L500.4100, L100.0100, L500.4050 ####[facility] [address] [place], [address] Platelets (Bld) [#/Vol] 122 10*3/uL Low 150-450 [facility] Comment on above: Performed By: #### L 501.5200, L501.2300, L500.4100, L100.0100, L500.4050 ####[facility] [address] [place], [address] RBC (Bld) [#/Vol] 5.20 10*6/uL Normal 4.2-5.4 [facility] Comment on above: Performed By: #### L 501.5200, L501.2300, L500.4100, L100.0100, L500.4050 ####[facility] [address] [place], [address] RDW SD 45.9 fl High 35.1-43.9 [facility] Comment on above: Performed By: #### L 501.5200, L501.2300, L500.4100, L100.0100, L500.4050 ####[facility] [address] [place], [address] WBC (Bld) [#/Vol] 6.6 10*3/uL Normal 4.4-11.0 [facility] Comment on above: Performed By: #### L 501.5200, L501.2300, L500.4100, L100.0100, L500.4050 ####[facility] [address] [place], [address] Carotid Duplex Ultrasoundon 11-11-2024 Carotid Duplex Ultrasound [facility] Cardiovascular Services [address] [place] [address] Carotid Duplex Ultrasound 11/11/24 1434 MR#: [id number] Acct: [id number] Name: MATTIE HERRON Rep #: [id number] : 1940 84 From: Jose Martin Frank MD Attending Dr: Dr. Trino Purcell MD Status : DIS STORMY Ordering Dr: Trino Purcell MD Date: 11/11/24 Location: [facility] Sex: F C Admitted: 11/10/24 Reason For Study Reason For Study: HX TIA / Carotid Stenosis Rt. Velocities/BP Lt. Velocities/BP Prox CCA 65.2/7.4 cm/sec. Prox CCA 53.7/9.5 cm/sec. Mid CCA 74.8/12.2 cm/sec. Mid CCA 66.7/8.1 cm/sec. Dist CCA 63.7/12.2 cm/sec. Dist CCA 60.1/12.8 cm/sec. Prox ICA 79.7/14.6 cm/sec. Prox ICA 112.5/15.7 cm/sec. Mid ICA 73.6/15.8 cm/sec. Mid ICA 73.2/12.7 cm/sec. Dist ICA 67.1/12.5 cm/sec. Dist ICA 77.6/12.7 cm/sec. Rt. ICA/CCA = 1.1. Lt. ICA/CCA = 1.7. Prox ECA 146.2/14.5 cm/sec. Prox ECA 144.0/14.5 cm/sec. Rt. Vert. 33.9/7.5 cm/sec. Lt. Vert. 23.9/3.3 cm/sec. Right Extracranial There is heterogeneous, irregular atherosclerotic plaque noted in the right common carotid artery. There is heterogeneous, irregular atherosclerotic plaque noted in the right internal carotid artery. There is intimal thickening but no significant atherosclerotic plaque noted in the right external carotid artery. Antegrade flow is noted in the right vertebral artery. There is heterogeneous, irregular atherosclerotic plaque noted in the right bulb. Left Extracranial There is heterogeneous, irregular atherosclerotic plaque noted in the left common carotid artery. There is heterogeneous, irregular atherosclerotic plaque noted in the left internal carotid artery. There is heterogeneous, irregular atherosclerotic plaque noted in the left external carotid artery. Antegrade flow is noted in the left vertebral artery. Abnormal waveform morphology noted. There is heterogeneous, irregular atherosclerotic plaque noted in the left bulb. Procedure Carotid Duplex 93521. This is a Carotid Duplex examination using B-mode, color flow and specral Doppler. The exam was diagnostic. Exam performed portable in patient room. VL/Carotid Duplex Ultrasound Interpretation Summary Mild (<50%) stenosis right extracranial internal carotid. Mild (<50%) stenosis left extracranial internal carotid. Heterogeneous, irregular atherosclerotic plaque is noted in the carotid bulbs bilaterally, which does not appear hemodynamically significant. Flow within the vertebral arteries is antegrade bilaterally. 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 Clinical correlation is advised. Ordering Physician: Trino Purcell Referring Physician: Matheus Fajardo M.D. Performed By: Chet Fabian Terri 11/11/242351 Date ___ Jose Martin Frank MD CC: Dr. Trino Purcell MD; Dr. Matheus Fajardo MD Date Dictated: 11/11/241433 Date Transcribed: 11/11/242351 Web Administrator: Signed Normal [facility] Comprehensive Metabolic Prof ilon 11-11-2024 Albumin [Mass/Vol] 3.1 g/dL Low 3.2-5.0 [facility] Comment on above: Order Comment: Comme nts: NPO at NE prior to lipid panel Performed By: #### L 501.5200, L501.2300, L500.4100, L100.0100, L500.4050 ####[facility] [address] [place], [address] Albumin/Globulin [Mass ratio] 0.9 {ratio} Normal 0.9-2.4 [facility] Comment on above: Order Comment: Comme nts: NPO at NE prior to lipid panel Performed By: #### L 501.5200, L501.2300, L500.4100, L100.0100, L500.4050 ####[facility] [address] [place], [address] ALK P 70 U/L Normal 45-117 [facility] Comment on above: Order Comment: Comme nts: NPO at [place] prior to lipid panel Performed By: #### L 501.5200, L501.2300, L500.4100, L100.0100, L500.4050 ####[facility] [address] [place], [address] ALT [Catalytic activity/Vol] 22 U/L Normal 13-56 [facility] Comment on above: Order Comment: Comme nts: NPO at MN prior to lipid panel Performed By: #### L 501.5200, L501.2300, L500.4100, L100.0100, L500.4050 ####[facility] [address] [place], [address] AST [Catalytic activity/Vol] 21 U/L Normal 15-37 [facility] Comment on above: Order Comment: Comme nts: NPO at MN prior to lipid panel Performed By: #### L 501.5200, L501.2300, L500.4100, L100.0100, L500.4050 ####[facility] [address] [place], [address] Bilirubin [Mass/Vol] 0.80 mg/dL Normal 0.20-1.00 [facility] Comment on above: Order Comment: Comme nts: NPO at MN prior to lipid panel Result Comment: For patients on eltrombopag therapy, use of Dimension Hersey TBIL is not recommended. Performed By: #### L 501.5200, L501.2300, L500.4100, L100.0100, L500.4050 ####[facility] [address] [place], [address] BUN/CRE 18.2 RATIO Normal 10-20 [facility] Comment on above: Order Comment: Comme nts: NPO at MN prior to lipid panel Performed By: #### L 501.5200, L501.2300, L500.4100, L100.0100, L500.4050 ####[facility] [address] [place], [address] CA,Total 9.0 mg/dL Normal 8.5-10.1 [facility] Comment on above: Order Comment: Comme nts: NPO at MN prior to lipid panel Performed By: #### L 501.5200, L501.2300, L500.4100, L100.0100, L500.4050 ####[facility] [address] [place], [address] Chloride [Moles/Vol] 102 mmol/L Normal 98-107 [facility] Comment on above: Order Comment: Comme nts: NPO at MN prior to lipid panel Performed By: #### L 501.5200, L501.2300, L500.4100, L100.0100, L500.4050 ####[facility] [address] [place], [address] CO2 [Moles/Vol] 24.0 mmol/L Normal 21.0-32.0 [facility] Comment on above: Order Comment: Comme nts: NPO at MN prior to lipid panel Performed By: #### L 501.5200, L501.2300, L500.4100, L100.0100, L500.4050 ####[facility] [address] [place], [address] Creatinine [Mass/Vol] 0.88 mg/dL Normal 0.55-1.02 [facility] Comment on above: Order Comment: Comme nts: NPO at MN prior to lipid panel Result Comment: The validity of the calculated GFR GFRAA in patients over 70 years has not been determined. Clinical correlation is essential. Performed By: #### L 501.5200, L501.2300, L500.4100, L100.0100, L500.4050 ####[facility] [address] [place], [address] ECRCL 45.45 ml/min Normal [facility] Comment on above: Order Comment: Comme nts: NPO at MN prior to lipid panel Performed By: #### L 501.5200, L501.2300, L500.4100, L100.0100, L500.4050 ####[facility] [address] [place], [address] EST GFR - AA 78 mL/min Normal >60 [facility] Comment on above: Order Comment: Comme nts: NPO at MN prior to lipid panel Result Comment: Afri can Martiniquais GFR Calc Performed By: #### L 501.5200, L501.2300, L500.4100, L100.0100, L500.4050 ####[facility] [address] [place], [address] GAP 9 Normal 5-15 [facility] Comment on above: Order Comment: Comme nts: NPO at MN prior to lipid panel Performed By: #### L 501.5200, L501.2300, L500.4100, L100.0100, L500.4050 ####[facility] [address] [place], [address] GFR/1.73 sq M.predicted among non-blacks MDRD (S/P/Bld) [Vol rate/Area] 65 mL/min/{1.73_m2} Normal >60 [facility] Comment on above: Order Comment: Comme nts: NPO at MN prior to lipid panel Result Comment: Non- GFR Calc Performed By: #### L 501.5200, L501.2300, L500.4100, L100.0100, L500.4050 ####[facility] [address] [place], [address] Globulin (S) [Mass/Vol] 3.4 g/dL Normal 2.2-4.2 [facility] Comment on above: Order Comment: Comme nts: NPO at MN prior to lipid panel Performed By: #### L 501.5200, L501.2300, L500.4100, L100.0100, L500.4050 ####[facility] [address] [place], [address] Glucose [Mass/Vol] 89 mg/dL Normal 74-106 [facility] Comment on above: Order Comment: Comme nts: NPO at MN prior to lipid panel Performed By: #### L 501.5200, L501.2300, L500.4100, L100.0100, L500.4050 ####[facility] [address] [place], [address] Potassium [Moles/Vol] 3.6 mmol/L Normal 3.5-5.1 [facility] Comment on above: Order Comment: Comme nts: NPO at MN prior to lipid panel Performed By: #### L 501.5200, L501.2300, L500.4100, L100.0100, L500.4050 ####[facility] [address] [place], [address] Sodium [Moles/Vol] 135 mmol/L Low 136-145 [facility] Comment on above: Order Comment: Comme nts: NPO at MN prior to lipid panel Performed By: #### L 501.5200, L501.2300, L500.4100, L100.0100, L500.4050 ####[facility] [address] [place], [address] T PROT 6.5 g/dL Normal 6.4-8.2 [facility] Comment on above: Order Comment: Comme nts: NPO at MN prior to lipid panel Performed By: #### L 501.5200, L501.2300, L500.4100, L100.0100, L500.4050 ####[facility] [address] [place], [address] Urea nitrogen [Mass/Vol] 16 mg/dL Normal 7-18 [facility] Comment on above: Order Comment: Comme nts: NPO at MN prior to lipid panel Performed By: #### L 501.5200, L501.2300, L500.4100, L100.0100, L500.4050 ####[facility] [address] [place], [address] Discharge Instructionon 10-29 Discharge Instruction [facility] Medical Records Department [address] [place] [address] Instructions for Home/Discharge Instructions 11/11/24 1512 MR#: [id number] Acct: [id number] Name: MATTIE HERRON Rep #: [id number] : 1940 84 From: Trino Purcell MD PCP: Dr. Matheus Fajardo MD Status:ADM STORMY Discharge Instructions Diet Discharge Diet: Low fat / Low cholesterol DC O2, CPAP, BIPAP needs Home O2 Discharge instructions: No Dressing / Incision Discharge Activity: Return to Normal Activity Dressing / Incision Call your doctor if you observe: Fever of 101 or Higher, Shortness of breath, Dizziness, Fainting spells, Swelling in the ankles, Chest pain and Increased palpitations (irregular heartbeat) Follow Up Care Test Results: Test results from this visit will be discussed in further detail at your follow-up appointment, if applicable. Discharge Plan Admission Admit Date/Time: 11/10/24 14:29 Attending Provider: Trino Purcell Primary Care Provider: Matheus Fajardo Consulting Providers: Alvin Bell; Tanika Morgan; Brandie Walsh; Laura Hernandez; Tiff Cueva; Konstantin Tong; Mandy Flores; Clement Grissom; Dave Russell; Roger Walden; Mattie Thomas; Nikhil Mallory; Ivonne Huddleston; Kristen Friedman; Cayla Trujillo; Trae Anaya; Carlos Parham; Víctor Dao; Saranya Jameson; Lui Justice; Lennie Jameson Discharge Orders/Prescriptions Prescriptions: New oseltamivir 30 mg Capsule 30 mg PO BID 4 Days Qty: 8 0RF Continued atorvastatin 80 mg tablet 80 mg PO QHS gabapentin 300 mg capsule 300 mg PO TID atenolol 25 MG tablet 25 mg PO DAILY aspirin 81 MG tablet,chewable 81 mg PO DAILY@0800 donepezil 10 mg tablet 5 mg PO DAILY Patient Comments: STATES BEING SPLIT TO EQUAL 5MG BECAUSE OF SIDE EFFECTS mirabegron 50 mg tablet extended release 24 hr 50 mg PO DAILY cholecalciferol (vitamin D3) 25 mcg (1,000 unit) capsule 25 mcg PO BID triamcinolone acetonide [24 Hour Nasal Allergy] 55 mcg aerosol,spray 2 spray intranasal DAILY PRN (Reason: congestion) Rx Instructions: administer into each nostril paroxetine HCl 10 mg tablet 10 mg PO DAILY Referrals / Follow Up: Matheus Fajardo MD [Primary Care Provider] - Within 1 Week Brandon Holloway MD [Non-Staff -Ordering Privileges] - Within 3 Months Disposition Disposition (needs filled in before D/C Order can be placed): Home, Self Care 11/11/24 1512 Trino Purcell MD CC: Laura Hernandez; Ivonne Huddleston; Trae Anaya; Tiff Cueva MD; Brandie Walsh MD; Alvin Bell MD; Dr. Tanika Morgan MD; Dr. Konstantin Tong MD; Dr. Mandy Flores MD; Dr. Dave Russell MD; Dr. Clement Grissom MD; Dr. Roger Walden MD; Dr. Lennie Jameson DO; Dr. Nikhil Mallory DO; Dr. Cayla Trujillo MD; Dr. Kristen Friedman MD; Dr. Carlos Parham MD; Dr. Víctor Dao MD; Dr. Matheus Fajardo MD; Dr. Saranya Jameson MD; Mattie Thomas DO; Lui Justice MD Signed Normal [facility] Lipid Profileon 11-11-2024 Cholesterol [Mass/Vol] 109 mg/dL Normal 200 [facility] Comment on above: Order Comment: Comme nts: NPO at NE prior to lipid panel Result Comment: <200 mg/dL Desirable 200-240 mg/dL Borderline >240 mg/dL High Risk Performed By: #### L 501.5200, L501.2300, L500.4100, L100.0100, L500.4050 ####[facility] [address] [place], [address] Cholesterol in HDL [Mass/Vol] 45 mg/dL Normal [facility] Comment on above: Order Comment: Comme nts: NPO at MN prior to lipid panel Result Comment: The drugs N-Acetylcysteine and Metamizole may falsely depress this assay. Reference Range HDL <40 mg/dL Low HDL Cholesterol HDL >or= 60 mg/dL High HDL Cholesterol Performed By: #### L 501.5200, L501.2300, L500.4100, L100.0100, L500.4050 ####[facility] [address] [place], [address] Cholesterol in LDL [Mass/Vol] 43 mg/dL Normal 0-130 [facility] Comment on above: Order Comment: Comme nts: NPO at MN prior to lipid panel Performed By: #### L 501.5200, L501.2300, L500.4100, L100.0100, L500.4050 ####[facility] [address] [place], [address] Cholesterol in VLDL [Mass/Vol] 21 mg/dL Normal 5-40 [facility] Comment on above: Order Comment: Comme nts: NPO at MN prior to lipid panel Performed By: #### L 501.5200, L501.2300, L500.4100, L100.0100, L500.4050 ####[facility] [address] [place], [address] Triglyceride [Mass/Vol] 105 mg/dL Normal [facility] Comment on above: Order Comment: Comme nts: NPO at MN prior to lipid panel Result Comment: The drugs N-Acetylcysteine and Metamizole may falsely depress this assay. Serum Triglycerides Reference Interval Normal <150 mg/dL Borderline high 150 - 199 mg/dL High 200 - 499 mg/dL Very High > or = 500 mg/dL Performed By: #### L 501.5200, L501.2300, L500.4100, L100.0100, L500.4050 ####[facility] [address] [place], [address] MR/CON.PCM.NEon 11-11-2024 MR/CON.PCM.NE [facility] Medical Records Department [address] [place] [address] Consultation - Neurology 11/11/24 1259 MR#: [id number] Acct: [id number] Name: MATTIE HERRON Rep #: [id number] : 1940 84 From: Ivonne Huddleston MD PCP: Dr. Matheus Fajardo MD Status:ADM STORMY Location: [place] [address] Assessment and Plan: Neuro Assessment/Plan MATTIE HERRON is a 84 F with a past medical history of smoking, being evaluated by Teleneurology for left sided weakness, facial droop and slurred speech lasted for roughly half an hour. No residual symptoms . MRI brain showed left frontal meningioma which is incidental and non contributory to the current symptoms. CT angio showed left ICA tight occlusion. Recommend US carotid for better quantification of level of narrowing and follow up with vascular surgery in 6 weeks. Appear to be asymptomatic as symptoms were noted to be over left side of body as per report. Continue aspirin ,Lipitor. LDL goal less than 70 , HbA1c goal less than 6.5 , BP goal less than 130/80. Smoking cessation encouraged.Echo reviewed. F/P with stroke clinic 6 weeks Diagnosis: TIA I personally attended this patient and spent a total time of 60 minutes evaluating this patient including clinical assessment, review of chart, medical history imaging, and determining appropriate treatment and workup. HPI Consult Data Date of Consult: 11/11/24 HPI Narrative HPI Narrative: As per HPI: MATTIE HERRON, is a 84 F who presented to the emergency department at [facility] on 11/10/2024 with a chief complaint of left-sided facial droop and slurred speech with left-sided weakness. Last known normal was midnight last night. She got up this morning and was noted to have some dysarthria/slurred speech and some left facial droop. Her son came over and he noted some left-sided weakness. NIH at time of presentation was 1 and an age at the time my evaluation was 0. She has never had symptoms like this previously. She does have a history of hypertension hyperlipidemia and does take medication for memory loss. Family reports that she typically is oriented times self and place but time tends to be difficult for her. They do state that currently her memory is worse than her baseline. Her does report that they have both been ill with some upper respiratory type symptoms. His started a few days ago and her seem to start in the last 48 hours. She has had some cough and some nasal drainage but no fever or chills. Vital signs on presentation showed temperature of 98.9, heart rate 80, respiratory 18, initial blood pressure was 182/85 with a repeat of 153/67, oxygen saturation was 90% on room air. Oxygen saturation dropped to 89% on room air so she was placed on 2 L nasal cannula with improvement to 96% on 2 L. CBC was overtly unremarkable. She does have a erythrocytosis which appears to be chronic and stable. She has mild thrombocytopenia with a platelet count of 145,000. Differential does show a left shift. Coags were negative. Chemistry panel was unremarkable. Troponin was less than 3. Her UA is not consistent with infection. Chest x-ray was unremarkable. CT of the brain showed chronic changes with no acute abnormalities. CTA of the head and neck showed unremarkable right carotid artery and near occlusion at the origin of the left internal carotid artery due to calcific plaque formation. Vertebral arteries are tiny but antegrade with no LVO noted. COVID/flu/RSV was initially reported out as negative however since has popped positive for influenza A. Stroke team was called on arrival and the stroke neurologist evaluated the patient agreed with admission for stroke rule out. On my evaluation , patient was alert and oriented and provided most of the history. No residual symptoms. Found to be positive for influenza A. [facility] Medical History (Updated 11/10/24 @ 20:[address] Lennie Jameson DO) Alzheimer's dementia Abdominal aortic aneurysm without rupture Tobacco abuse Aortic valve sclerosis Old myocardial infarction JL on CPAP PVD (peripheral vascular disease) Presence of stent in coronary artery ( 12/18/03) Stenosis of infrarenal abdominal aorta due to atherosclerosis ( 03/11/04) Diabetic peripheral neuropathy associated with type 2 diabetes mellitus Type 2 diabetes mellitus DDD (degenerative disc disease) Bilateral carotid artery disease GERD (gastroesophageal reflux disease) Essential hypertension Mixed hyperlipidemia Atherosclerotic heart disease of [place] coronary artery without angina pectoris Home Medications ???Medication ???Instructions ???Recorded ???Last Taken ???Type aspirin 81 mg chewable tablet 81 mg PO DAILY@0800 preventative 1 11/09/24 History atenolol 25 mg tablet 25 mg PO DAILY heart 07/06/1410/29 History atorvastatin 80 (more content not included)... Normal [facility] Magnesiumon 11-11-2024 Magnesium [Mass/Vol] 2.2 mg/dL Normal 1.6-2.6 [facility] Comment on above: Order Comment: Comme nts: NPO at NE prior to lipid panel Performed By: #### L 501.5200, L501.2300, L500.4100, L100.0100, L500.4050 ####[facility] [address] [place], [address] Phosphoruson 11-11-2024 Phosphate [Mass/Vol] 3.4 mg/dL Normal 2.5-4.9 [facility] Comment on above: Order Comment: Comme nts: NPO at NE prior to lipid panel Performed By: #### L 501.5200, L501.2300, L500.4100, L100.0100, L500.4050 ####[facility] [address] [place], [address] 12 Lead EKGon 11-10-2024 12 Lead EKG [facility] Cardiovascular Services [address] [place] [address] 12 Lead EKG 11/10/24 1356 MR#: [id number] Acct: [id number] Name: MATTIE HERRON Rep #: [id number] : 1940 84 From: Arcelia Mcmahan MD Attending Dr: Dr. Trino Purcell MD Status : DIS STORMY Ordering Dr: Arleen Lord DO Date: 11/10/24 Location: [facility] Sex: F C Admitted: 11/10/24 Test Reason : Blood Pressure : */* mmHG Vent. Rate : 76 BPM Atrial Rate : 76 BPM P-R Int : 190 ms QRS Dur : 68 ms QT Int : 374 ms P-R-T Axes : 56 -9 57 degrees QTcB Int : 420 ms Normal sinus rhythm Low voltage QRS Inferior infarct , age undetermined Abnormal ECG Confirmed by LORENA MONTOYA, JASMINE ([id number]), editorial manager MALU YUSUF ([id number]) on 11/14/2024 8:05:23 AM Referred By: BABITA Confirmed By: JASMINE MCMAHAN MD 11/14/24 08 Date ___ Arcelia Mcmahan MD CC: Dr. Trino Purcell MD; Dr. Arleen Lord DO; Dr. Matheus Fajardo MD Signed Normal [facility] Basic Metabolic Profile (BMP )on 11-10-2024 BUN/CRE 17.4 RATIO Normal 10-20 [facility] Comment on above: Order Comment: 'TROP ' Serial specimen #1, #2 or #3: 1 Performed By: #### L 501.4020, L500.2500, L300.3900, L100.0100 ####[facility] [address] [place], [address] CA,Total 9.2 mg/dL Normal 8.5-10.1 [facility] Comment on above: Order Comment: 'TROP ' Serial specimen #1, #2 or #3: 1 Performed By: #### L 501.4020, L500.2500, L300.3900, L100.0100 ####[facility] [address] [place], [address] Chloride [Moles/Vol] 106 mmol/L Normal 98-107 [facility] Comment on above: Order Comment: 'TROP ' Serial specimen #1, #2 or #3: 1 Performed By: #### L 501.4020, L500.2500, L300.3900, L100.0100 ####[facility] [address] [place], [address] CO2 [Moles/Vol] 26.0 mmol/L Normal 21.0-32.0 [facility] Comment on above: Order Comment: 'TROP ' Serial specimen #1, #2 or #3: 1 Performed By: #### L 501.4020, L500.2500, L300.3900, L100.0100 ####[facility] [address] [place], [address] Creatinine [Mass/Vol] 0.98 mg/dL Normal 0.55-1.02 [facility] Comment on above: Order Comment: 'TROP ' Serial specimen #1, #2 or #3: 1 Result Comment: The validity of the calculated GFR GFRAA in patients over 70 years has not been determined. Clinical correlation is essential. Performed By: #### L 501.4020, L500.2500, L300.3900, L100.0100 ####[facility] [address] [place], [address] ECRCL 39.29 ml/min Normal [facility] Comment on above: Order Comment: 'TROP ' Serial specimen #1, #2 or #3: 1 Performed By: #### L 501.4020, L500.2500, L300.3900, L100.0100 ####[facility] [address] [place], [address] EST GFR - AA 70 mL/min Normal >60 [facility] Comment on above: Order Comment: 'TROP ' Serial specimen #1, #2 or #3: 1 Result Comment: Afri can Martiniquais GFR Calc Performed By: #### L 501.4020, L500.2500, L300.3900, L100.0100 ####[facility] [address] [place], [address] GAP 7 Normal 5-15 [facility] Comment on above: Order Comment: 'TROP ' Serial specimen #1, #2 or #3: 1 Performed By: #### L 501.4020, L500.2500, L300.3900, L100.0100 ####[facility] [address] [place], [address] GFR/1.73 sq M.predicted among non-blacks MDRD (S/P/Bld) [Vol rate/Area] 58 mL/min/{1.73_m2} Low >60 [facility] Comment on above: Order Comment: 'TROP ' Serial specimen #1, #2 or #3: 1 Result Comment: Non- GFR Calc Performed By: #### L 501.4020, L500.2500, L300.3900, L100.0100 ####[facility] [address] [place], [address] Glucose [Mass/Vol] 109 mg/dL High 74-106 [facility] Comment on above: Order Comment: 'TROP ' Serial specimen #1, #2 or #3: 1 Result Comment: Fast ing Glucose result from 100 to 125 mg/dL suggests IMPAIRED HOMEOSTASIS per A.D.A. criteria. Performed By: #### L 501.4020, L500.2500, L300.3900, L100.0100 ####[facility] [address] [place], [address] Potassium [Moles/Vol] 4.3 mmol/L Normal 3.5-5.1 [facility] Comment on above: Order Comment: 'TROP ' Serial specimen #1, #2 or #3: 1 Performed By: #### L 501.4020, L500.2500, L300.3900, L100.0100 ####[facility] [address] [place], [address] Sodium [Moles/Vol] 139 mmol/L Normal 136-145 [facility] Comment on above: Order Comment: 'TROP ' Serial specimen #1, #2 or #3: 1 Performed By: #### L 501.4020, L500.2500, L300.3900, L100.0100 ####[facility] [address] [place], [address] Urea nitrogen [Mass/Vol] 17 mg/dL Normal 7-18 [facility] Comment on above: Order Comment: 'TROP ' Serial specimen #1, #2 or #3: 1 Performed By: #### L 501.4020, L500.2500, L300.3900, L100.0100 ####[facility] [address] [place], [address] Brain without Contraston Brain without Contrast [facility] Imaging Services [address] [address] Brain without Contrast MR#: [id number] Acct: [id number] Name: MATTIE HERRON Rep #: [id number] : 1940 F 84 From: Wilmer Yu DO PCP: Dr. Matheus Fajardo MD Status: ADM STORMY Study: Brain without Contrast Date of Exam: 11/10/24 Exam# [id number] Ordering Dr: Lennie Jameson DO PROCEDURE: MRI BRAIN WITHOUT CONTRAST REASON FOR EXAM: Dementia. Stroke evaluation. TECHNIQUE: Multiplanar, multisequence MRI of the brain without intravenous gadolinium-based contrast. COMPARISON: CT brain and CTA brain/neck from 11/10/2024. FINDINGS: There is prominence of the ventricles and sulci indicative of atrophy. There are numerous foci of hyperintense T2/FLAIR signal in the periventricular and deep white matter likely relating to chronic small vessel ischemic disease. Along the extra-axial space, there is a dural-based lesion involving the left frontal region laterally measuring approximately 15.6 x 8.4 x 16.0 mm in the AP, transverse, and CC dimensions respectively likely relating to a meningioma. No midline shift or mass effect is present. No diffusion restriction is identified on diffusion-weighted imaging to suggest acute/subacute ischemic changes. No acute intracranial hemorrhage or acute territorial infarction is seen. Corpus callosum, optic chiasm, suprasellar cistern, and cerebellar tonsils are within normal range. Major vascular flow voids are present. Bilateral orbits are intact. Nasal septum is deviated to the left. There is mild mucosal thickening of the right ethmoid sinus. MRI/Brain without Contrast IMPRESSION: 1. No acute intracranial process. 2. Extra-axial dural-based lesion involving the left frontal region laterally measuring 16 mm likely relates to a meningioma. However, recommend further evaluation with MRI of the brain with IV contrast. 3. Chronic small vessel ischemic disease. 4. Atrophy. Reading Location: [facility] CC: Dr. Lennie Jameson DO; Dr. Matheus Fajardo MD Web Administrator: Signed Normal [facility] CBC W/Diff, Automatedon 10-29 Absolute Lymph 0.56 X10 3/uL Low 0.83-4.51 [facility] Comment on above: Performed By: #### L 501.4020, L500.2500, L300.3900, L100.0100 ####[facility] [address] [place], [address] Absolute Neut 5.4 X10 3/uL Normal 2.0-7.7 [facility] Comment on above: Performed By: #### L 501.4020, L500.2500, L300.3900, L100.0100 ####[facility] [address] [place], [address] Basophils/100 WBC (Bld) 0.3 % Normal 0-1 [facility] Comment on above: Performed By: #### L 501.4020, L500.2500, L300.3900, L100.0100 ####[facility] [address] [place], [address] Eosinophils/100 WBC (Bld) 0.6 % Normal 0-5 [facility] Comment on above: Performed By: #### L 501.4020, L500.2500, L300.3900, L100.0100 ####[facility] [address] [place], [address] Erythrocyte distribution width (RBC) [Ratio] 14.5 % Normal 11.6-14.6 [facility] Comment on above: Performed By: #### L 501.4020, L500.2500, L300.3900, L100.0100 ####[facility] [address] [place], [address] Hematocrit (Bld) [Volume fraction] 45.6 % Normal 37-47 [facility] Comment on above: Performed By: #### L 501.4020, L500.2500, L300.3900, L100.0100 ####[facility] [address] [place], [address] Hemoglobin (Bld) [Mass/Vol] 15.2 g/dL High 12.0-15.0 [facility] Comment on above: Performed By: #### L 501.4020, L500.2500, L300.3900, L100.0100 ####[facility] [address] [place], [address] IG% 0.300 Normal 0.0-0.9 [facility] Comment on above: Result Comment: IG% - Immature Granulocytes (promyelocytes, myelocytes and metamyelocytes) > 1% indicates that a LEFT SHIFT is Present. Performed By: #### L 501.4020, L500.2500, L300.3900, L100.0100 ####[facility] [address] [place], [address] Lymphocytes/100 WBC (Bld) 8.7 % Low 19-41 [facility] Comment on above: Performed By: #### L 501.4020, L500.2500, L300.3900, L100.0100 ####[facility] [address] [place], [address] MCH (RBC) [Entitic mass] 28.9 pg Normal 27.0-32.0 [facility] Comment on above: Performed By: #### L 501.4020, L500.2500, L300.3900, L100.0100 ####[facility] [address] [place], [address] MCHC (RBC) [Mass/Vol] 33.3 g/dL Normal 32-36 [facility] Comment on above: Performed By: #### L 501.4020, L500.2500, L300.3900, L100.0100 ####[facility] [address] [place], [address] MCV (RBC) [Entitic vol] 86.7 fL Normal 81-99 [facility] Comment on above: Performed By: #### L 501.4020, L500.2500, L300.3900, L100.0100 ####[facility] [address] [place], [address] Monocytes/100 WBC (Bld) 6.0 % Normal 0-10 [facility] Comment on above: Performed By: #### L 501.4020, L500.2500, L300.3900, L100.0100 ####[facility] [address] [place], [address] Neutrophils/100 WBC (Bld) 84.1 % High 47-70 [facility] Comment on above: Performed By: #### L 501.4020, L500.2500, L300.3900, L100.0100 ####[facility] [address] [place], [address] Nucleated RBC (Bld) [#/Vol] 0 10*3/uL Normal 0-5 [facility] Comment on above: Performed By: #### L 501.4020, L500.2500, L300.3900, L100.0100 ####[facility] [address] [place], [address] Platelet mean volume (Bld) [Entitic vol] 11.1 fL Normal 6.2-12.0 [facility] Comment on above: Performed By: #### L 501.4020, L500.2500, L300.3900, L100.0100 ####[facility] [address] [place], [address] Platelets (Bld) [#/Vol] 145 10*3/uL Low 150-450 [facility] Comment on above: Performed By: #### L 501.4020, L500.2500, L300.3900, L100.0100 ####[facility] [address] [place], [address] RBC (Bld) [#/Vol] 5.26 10*6/uL Normal 4.2-5.4 [facility] Comment on above: Performed By: #### L 501.4020, L500.2500, L300.3900, L100.0100 ####[facility] [address] [place], [address] RDW SD 46.1 fl High 35.1-43.9 [facility] Comment on above: Performed By: #### L 501.4020, L500.2500, L300.3900, L100.0100 ####[facility] [address] [place], [address] WBC (Bld) [#/Vol] 6.5 10*3/uL Normal 4.4-11.0 [facility] Comment on above: Performed By: #### L 501.4020, L500.2500, L300.3900, L100.0100 ####[facility] [address] [place], [address] Chest 1 Viewon 11-10-2024 Chest 1 View [facility] Imaging Services [address] [place] [address] Chest 1 View MR#: [id number] Acct: [id number] Name: MATTIE HERRON Rep #: [id number] : 1940 F 84 From: Alejandro Solano PCP: Dr. Matheus Fajardo MD Status: REG ER Study: Chest 1 View Date of Exam: 11/10/24 Exam# [id number] Ordering Dr: Arleen Lord DO PROCEDURE: CHEST 1 VIEW REASON FOR EXAM: Neurological deficit, acute. Stroke suspected. TECHNIQUE: Single frontal image including the chest and abdomen. COMPARISON: None provided. RAD/Chest 1 View IMPRESSION: Generalized osteopenia is present. No acute osseous changes seen. Lungs appear clear of acute disease. No pleural effusion or pneumothorax is noted. The cardiomediastinal silhouette is within the normal range for age. No evidence of acute cardiopulmonary disease. Reading Location: [address] CC: Dr. Arleen Lord DO; Dr. Matheus Fajardo MD Web Administrator: Signed Normal [facility] Echo Complete W/ Contraston 11-10-2024 Echo Complete W/ Contrast [facility] Cardiovascular Services [address] [place] [address] Echo Complete W/ Contrast 11/11/24 0843 MR#: [id number] Acct: [id number] Name: MATTIE HERRON Rep #: [id number] : 1940 84 From: Arcelia Mcmahan MD Attending Dr: Dr. Trino Purcell MD Status : ADM STORMY Ordering Dr: Lennie Jameson DO Date: 11/10/24 Location: U Sex: F C Admitted: 11/10/24 Reason For Study Reason For Study: TIA/CVA Procedure This was a 2D Doppler, Color Flow transthoracic echocardiogram. The study was technically difficult. Contrast injection was performed. Exam performed portable in patient room. Left Ventricle Normal LV size. Left ventricular systolic function is hyperdynamic. The estimated ejection fraction is >75 %. No evidence for diastolic dysfunction. No regional wall motion abnormalities noted. Right Ventricle Normal RV size. Normal systolic function. Atria The left and right atria are normal. No doppler evidence for ASD. Mitral Valve There is no mitral valve stenosis. No mitral valve insufficiency. Tricuspid Valve There is no tricuspid stenosis. No tricuspid valve insufficiency. Aortic Valve Trisinus/trileaflet aortic valve. Mild diffuse aortic valve thickening. Mild aortic stenosis. No aortic valve insufficiency. Pulmonic Valve There is no pulmonic valvular stenosis. No pulmonic valve insufficiency. Great Vessels Normal aortic root. Pericardium/Pleural No pericardial effusion. Medication Diluted definity 2.5ml given slow IV push to enhance endocardial definition. MMode/2D Measurements Calculations LVIDd: 4.0 cm IVSd: 1.1 cm LVOT diam: 2.0 cm LVIDs: 1.8 cm LVPWd: 1.1 cm RVDd: 3.3 cm FS: 55.1 % LVOT area: 3.0 cm2 _ Ao root diam: 3.5 cm LAV(MOD-bp): 22.6 ml LVAd ap4: 26.0 cm2 LAV(MOD-bp) Indexed: 12.6 ml/m2 LVLd ap4: 8.0 cm LAV(MOD-sp2): 27.9 ml EDV(MOD-sp4): 67.8 ml LAV(MOD-sp4): 18.2 ml EDV(sp4-el): 71.9 ml LVAs ap4: 8.4 cm2 LVLs ap4: 5.3 cm ESV(MOD-sp4): 10.7 ml ESV(sp4-el): 11.3 ml EF(MOD-sp4): 84.2 % EF(sp4-el): 84.3 % _ SV(MOD-sp4): 57.1 ml SV(sp4-el): 60.6 ml LA A4 area: 10.3 cm2 SI(MOD-sp4): 31.8 ml/m2 _ LA dimension(2D): 3.9 cm RA A4 area: 9.7 cm2 Time Measurements MV dec time: 0.39 sec Doppler Measurements Calculations MV E max yovanny: 80.8 cm/sec Lat Peak E' Yvoanny: 8.3 cm/sec Med Peak E' Yovanny: 7.4 cm/sec MV A max yovanny: 121.8 cm/sec E/E' lat: 9.8 E/E' med: 10.9 MV E/A: 0.66 _ MV V2 max: 118.9 cm/sec MV P1/2t max yovanny: 93.2 cm/sec Ao V2 max: 303.4 cm/sec MV max P.7 mmHg MV P1/2t: 127.1 msec Ao max P.8 mmHg MV V2 mean: 61.2 cm/sec MV dec slope: 214.8 cm/sec2 Ao V2 mean: 197.4 cm/sec MV mean P.8 mmHg MVA(P1/2t): 1.7 cm2 Ao mean P.2 mmHg MV V2 VTI: 38.1 cm Ao V2 VTI: 56.1 cm MVA(VTI): 2.1 cm2 AV (velocity ratio): 0.48 MAURISIO(I,D): 1.4 cm2 MAURISIO(V,D): 1.2 cm2 _ LV V1 max: 119.0 cm/sec SV(LVOT): 80.0 ml LV V1 max P.7 mmHg LV V1 mean P.2 mmHg LV V1 mean: 83.2 cm/sec LV V1 VTI: 26.7 cm ECHO/Echo Complete W/ Contrast Interpretation Summary Left ventricular systolic function is hyperdynamic. The estimated ejection fraction is >75 %. No evidence for diastolic dysfunction. Mild aortic stenosis. Ordering Physician: Lennie Jameson Performed By: Lino Marquez RCS 11/11/24 1125 Date ___ Arcelia Mcmahan MD CC: Dr. Lennie Jameson DO; Dr. Trino Purcell MD; Dr. Matheus Fajardo MD Date Dictated: 11/11/24 0843 Date Transcribed: 11/11/24 1125 Web Administrator: Signed Normal [facility] Emergency Department Summary on 11-10-2024 Emergency Department Summary [facility] Medical Records Department [address] [place] [address] Emergency Department Summary 11/10/24 MR#: [id number] Acct: [id number] Name: MATTIE HERRON Rep #: [id number] : 1940 84 From: Arleen Lord DO PCP: Dr. Matheus Fajardo MD Status:ADM STORMY Location: [place] [address] HPI History of Present Illness Chief Complaint: Neuro S/Sx Detail of Chief Complaint: Concern for stroke Informant: patient and EMS Narrative Narrative: Patient presents to the emergency department via EMS with concern for possible stroke. Patient's called the squad for slurred speech and right-sided facial droop. Last known well was about midnight last night however she did wake up around 2 AM to use the restroom but the did not talk to her or see her at that time. This morning she did not wake up like normal and slept in when she did finally wake up she did not seem like herself. Patient denies recent illness of fever or cough. She denies headache. She denies chest pain or shortness of breath. [facility] Medical History (Updated 11/10/24 @ 14:[address] Arleen Lord DO) Alzheimer's dementia Abdominal aortic aneurysm without rupture Tobacco abuse Aortic valve sclerosis Old myocardial infarction JL on CPAP PVD (peripheral vascular disease) Presence of stent in coronary artery ( 12/18/03) Stenosis of infrarenal abdominal aorta due to atherosclerosis ( 03/11/04) Diabetic peripheral neuropathy associated with type 2 diabetes mellitus Type 2 diabetes mellitus DDD (degenerative disc disease) Bilateral carotid artery disease GERD (gastroesophageal reflux disease) Essential hypertension Mixed hyperlipidemia Atherosclerotic heart disease of [place] coronary artery without angina pectoris Home Medications ???Medication ???Instructions ???Recorded ???Last Taken ???Type aspirin 81 mg chewable tablet 81 mg PO DAILY@0800 07/06/14 Unkno wn History atenolol 25 mg tablet 25 mg PO DAILY 07/06/14 Unknown Hi story atorvastatin 80 mg tablet 80 mg PO QHS 09/02/19 Unknown Hist ory gabapentin 300 mg capsule 300 mg PO TID 09/18/22 Unknown His tory paroxetine HCl 10 mg tablet 10 mg PO DAILY 09/18/22 Unknown Hi story cholecalciferol (vitamin D3) 25 25 mcg PO BID 11/10/24 11/09/24 Hi story mcg (1,000 unit) capsule donepezil 10 mg tablet 10 mg PO DAILY 11/10/24 Unknown Hi story mirabegron 50 mg tablet,extended 50 mg PO DAILY 11/10/24 Unknown Hi story release 24 hr triamcinolone acetonide 55 mcg 2 spray intranasal DAILY PRN 11/10 Unknown History nasal spray aerosol (24 Hour Nasal congestion Allergy) Allergy/AdvReac Type Severity Reaction Status Date / Time hydrocodone Allergy Rash Verified 11/10/24 13:08 Penicillins (PCN) Allergy Other Verified 11/10/24 13:08 Sulfa (Sulfonamide Allergy Unknown Verified 11/10/24 13:08 Antibiotics) amoxicillin (From Augmentin) AdvReac Mild itching Verified 11/10/24 13:08 clavulanic acid (From AdvReac Mild itching Verified 11/10/24 13:08 Augmentin) acetaminophen (From Vicodin) AdvReac Other Verified 11/10/24 13:08 hydrocodone bitartrate (From AdvReac Other Verified 11/10/24 13:08 Vicodin) lovastatin (From Mevacor) AdvReac Other Verified 11/10/24 13:08 rosuvastatin calcium (From AdvReac Other Verified 11/10/24 13:08 Crestor) simvastatin (From Zocor) AdvReac Other Verified 11/10/24 13:08 Family History (Reviewed 06/05/23 @ 15:16 by Autumn Medina SOFTWARE DEVELOPMENT ADVISOR, SOFTWARE DEVELOPMENT ADVISOR-C) Father Myocardial infarction Heart disease CVA (cerebral vascular accident) Diabetes Brother CAD (coronary artery disease) Surgical History History of left breast biopsy Cataract extraction status of left eye History of surgery on wrist History of cystoscopy Presence of coronary angioplasty implant and graft ( 12/18/03) Social History (Reviewed 06/05/23 @ 15:16 by Autumn Medina SOFTWARE DEVELOPMENT ADVISOR, SOFTWARE DEVELOPMENT ADVISOR-C) Smoking Status: Current every day smoker tobacco type: cigarettes alcohol intake: never substance use type: does not use caffeine: Yes Type: carbonated beverages Number of servings: 3 and tea Number of servings: 3 ROS ROS ED Review of Systems ROS Unobtainable: other Constitutional Constitutional ED: Reports lethargy; Denies chills, fever(s), sweats or weight loss Eyes Eyes: Denies blurry vision, change in vision or diplopia ENT ENT ED: Denies rhinorrhea or sore throat Cardiovascular Cardiovascular: Denies chest pain, orthopnea or racing heartbeat Respiratory/Chest Respiratory/Chest: Denies cough, dyspnea, dyspnea on exertion, orthopnea or sputum Gastrointestinal Gastrointestinal: Denies abdominal pain, diarrhea, nausea or vomiting Genitourinary Genitourinary ED: Denies dysuria, hematuria or urinary frequency Musculoskeletal (more content not included)... Normal [facility] H AND P Exam - Hospital[place] 11-10-2024 H&P Exam - Hospitalist [facility] Medical Records Department [address] [place] [address] H P Exam - Hospitalist 11/10/24 1427 MR#: [id number] Acct: [id number] Name: MATTIE HERRON Rep #: [id number] : 1940 84 From: Lennie Jameson DO PCP: Dr. Matheus Fajardo MD Status:ADM STORMY Location: [place] [address] HPI - General General Date of Admission: 11/10/24 Date of Service: 11/10/24 Chief Complaint: L sided weakness/L facial droop HPI Narrative MATTIE HERRON, is a 84 F who presented to the emergency department at [facility] on 11/10/2024 with a chief complaint of left-sided facial droop and slurred speech with left-sided weakness. Last known normal was midnight last night. She got up this morning and was noted to have some dysarthria/slurred speech and some left facial droop. Her son came over and he noted some left-sided weakness. NIH at time of presentation was 1 and an age at the time my evaluation was 0. She has never had symptoms like this previously. She does have a history of hypertension hyperlipidemia and does take medication for memory loss. Family reports that she typically is oriented times self and place but time tends to be difficult for her. They do state that currently her memory is worse than her baseline. Her does report that they have both been ill with some upper respiratory type symptoms. His started a few days ago and her seem to start in the last 48 hours. She has had some cough and some nasal drainage but no fever or chills. Vital signs on presentation showed temperature of 98.9, heart rate 80, respiratory 18, initial blood pressure was 182/85 with a repeat of 153/67, oxygen saturation was 90% on room air. Oxygen saturation dropped to 89% on room air so she was placed on 2 L nasal cannula with improvement to 96% on 2 L. CBC was overtly unremarkable. She does have a erythrocytosis which appears to be chronic and stable. She has mild thrombocytopenia with a platelet count of 145,000. Differential does show a left shift. Coags were negative. Chemistry panel was unremarkable. Troponin was less than 3. Her UA is not consistent with infection. Chest x-ray was unremarkable. CT of the brain showed chronic changes with no acute abnormalities. CTA of the head and neck showed unremarkable right carotid artery and near occlusion at the origin of the left internal carotid artery due to calcific plaque formation. Vertebral arteries are tiny but antegrade with no LVO noted. COVID/flu/RSV was initially reported out as negative however since has popped positive for influenza A. Stroke team was called on arrival and the stroke neurologist evaluated the patient agreed with admission for stroke rule out. [facility] Medical History (Updated 11/10/24 @ 20:[address] Lennie Jameson, DO) Alzheimer's dementia Abdominal aortic aneurysm without rupture Tobacco abuse Aortic valve sclerosis Old myocardial infarction JL on CPAP PVD (peripheral vascular disease) Presence of stent in coronary artery ( 12/18/03) Stenosis of infrarenal abdominal aorta due to atherosclerosis ( 03/11/04) Diabetic peripheral neuropathy associated with type 2 diabetes mellitus Type 2 diabetes mellitus DDD (degenerative disc disease) Bilateral carotid artery disease GERD (gastroesophageal reflux disease) Essential hypertension Mixed hyperlipidemia Atherosclerotic heart disease of [place] coronary artery without angina pectoris Home Medications ???Medication ???Instructions ???Recorded ???Last Taken ???Type aspirin 81 mg chewable tablet 81 mg PO DAILY@0800 preventative 1 11/09/24 History atenolol 25 mg tablet 25 mg PO DAILY heart 10/09/14 02/1 2/25 History atorvastatin 80 mg tablet 80 mg PO QHS cholesterol 09/02/19 11/09/24 History gabapentin 300 mg capsule 300 mg PO TID neuropathy 09/18/22 11/09/24 History cholecalciferol (vitamin D3) 25 25 mcg PO BID vitamin 11/10/2409/21 History mcg (1,000 unit) capsule donepezil 10 mg tablet 5 mg PO DAILY memory 11/10/2410/29 History mirabegron 50 mg tablet,extended 50 mg PO DAILY 11/10/24 11/09/24 H istory release 24 hr paroxetine HCl 10 mg tablet 10 mg PO DAILY mood 11/10/24 Unkno wn History triamcinolone acetonide 55 mcg 2 spray intranasal DAILY PRN 11/10 Unknown History nasal spray aerosol (24 Hour Nasal congestion Allergy) Allergy/AdvReac Type Severity Reaction Status Date / Time hydrocodone Allergy Rash Verified 11/10/24 13:08 Penicillins (PCN) Allergy Other Verified 11/10/24 13:08 Sulfa (Sulfonamide Allergy Unknown Verified 11/10/24 13:08 Antibiotics) amoxicillin (From Augmentin) AdvReac Mild itching Verified 11/10/24 13:08 clavulanic acid (From AdvReac Mild itching Verified 11/10/24 13:08 Augmentin) acetaminophen (From Vicodin) AdvReac Other Verified 11/10/24 13:08 (more content not included)... Normal [facility] Hemoglobin A1con 11-10-2024 HbA1c (Bld) [Mass fraction] 6.2 % High 3.8-5.6 [facility] Comment on above: Result Comment: Norm al < 5.7 % Prediabetic 5.7 - 6.4 % Diabetic >or= 6.5 % Please note range changes. Performed By: #### L 786.4549 ####[facility] [address] [place], [address] L501.4020on 11-10-2024 TROPONIN-I HS < 3 Low 3.0-54.0 [facility] Comment on above: Order Comment: 'TROP ' Serial specimen #1, #2 or #3: 1 Result Comment: Radha martinez Note: New Test Units and Gender Specific Reference Ranges. For more information see Policy Stat Procedure [place] High Sensitivity Troponin (TNIH) and attachments. Performed By: #### L 501.4020, L500.2500, L300.3900, L100.0100 ####[facility] [address] [place], [address] M100.678on 11-10-2024 SARS-CoV-2 (COVID-19) Ab IA Ql Normal Reference Range = Negative FLUABV+SARS-CoV-2+RSV Pnl Resp MARIN+probe GeneXpert Instrument, PCR method FLUABV+SARS-CoV-2+RSV Pnl Resp MARIN+probe RESULTS CALLED TO CHIARA FUNES 11/10/24 145Elsy Cruz. REPORT READ BACK BY . SARS-CoV-2 (COVID 19) Negative INFLUENZA A A Positive A INFLUENZA B Negative RSV PCR Negative INFLUENZAE A Normal [facility] Comment on above: Performed By: #### M 100.678 ####[facility] [address] [place], [address] Partial Thromboplast Timeon 11-10-2024 aPTT Coag (Bld) [Time] 32.7 s Normal 24.1-36.2 [facility] Comment on above: Order Comment: REDRA W. PREVIOUS SPECIMEN REJECTED DUE TOHEMOLYSIS. 11/10/24 1351 Jolynn Matute. Performed By: #### L 300.3900, L300.4310 ####[facility] [address] [place], [address] Prothrombin Time w/INRon INR Coag (PPP) [Relative time] 1.0 {INR} Normal [facility] Comment on above: Order Comment: REDRA W. PREVIOUS SPECIMEN REJECTED DUE TOHEMOLYSIS. 11/10/24 1351 Jolynn Matute. Performed By: #### L 300.3900, L300.4310 ####[facility] [address] [place], [address] PT Coag (PPP) [Time] 13.7 s Normal 11.7-14.9 [facility] Comment on above: Order Comment: LILY Canchola. PREVIOUS SPECIMEN REJECTED DUE TOHEMOLYSIS. 11/10/24 135 Jolynn Matute. Performed By: #### L 300.3900, L300.4310 ####[facility] [address] [place], [address] INR Normal [facility] Comment on above: Result Comment: This specimen has been REJECTED due to Laboratory criteria: Hemolyzed. YR has been notified of need of recollection. 11/10/24 135 Jolynn Matute Performed By: #### L 501.4020, L500.2500, L300.3900, L100.0100 ####[facility] [address] [place], [address] PROTIME Normal 11.7-14.9 [facility] Comment on above: Result Comment: This specimen has been REJECTED due to Laboratory criteria: Hemolyzed. RY has been notified of need of recollection. 11/10/24 1351 Jolynn Matute Performed By: #### L 501.4020, L500.2500, L300.3900, L100.0100 ####[facility] [address] [place], [address] RESPIRATORY PANEL MOLECULARo n 11-10-2024 RP PANEL ADENOVIRUS Not Detected INFLUENZA A Not Detected INFLUENZA A (SUBTYPE H1) Not Detected INFLUENZA A (SUBTYPE H3) Not Detected INFLUENZA B Not Detected HUMAN METAPHNEUMO Not Detected PARAINFLUENZA 1 Not Detected PARAINFLUENZA 2 Not Detected PARAINFLUENZA 3 Not Detected PARAINFLUENZA 4 Not Detected RHINOVIRUS Not Detected RSV A Not Detected RSV B Not Detected Normal [facility] Comment on above: Performed By: #### M 100.638 #### [facility] [address] [place], [address] STROKE Brain/Head without Co nton 11-10-2024 STROKE Brain/Head without Cont [facility] [address] [place], [place] [address] STROKE Brain/Head without Cont MR#: [id number] Acct: [id number] Name: MATTIE HERRON Rep #: [id number] : 1940 F 84 From: Roberto ocampo MD PCP: Dr. Matheus Fajardo MD Status: REG ER Study: STROKE Brain/Head without Cont Date of Exam: 0 11/10/24 Exam# [id number] Ordering Dr: Arleen Lord DO EXAM: CT scan of the head without intravenous contrast administration. CLINICAL HISTORY: Neuro deficit. Acute stroke suspected. COMPARISON: Comparison is made with prior study dated July 26, 2021. TECHNIQUE: Multiple axial tomographic images were obtained without intravenous contrast administration. Coronal and sagittal reconstruction was obtained as well. FINDINGS: Moderate degree of cerebral atrophy. There is evidence of decreased attenuation in the deep white matter in the periventricular distribution in keeping with chronic small-vessel disease. Mild calcification of the basal ganglia bilaterally suggestive of chronic changes. Calcification of the cavernous portions of the internal carotid arteries bilaterally. Mild degree of cerebellar atrophy. Partial opacification of the right ethmoid sinus. CT/STROKE Brain/Head without Cont IMPRESSION: Chronic changes. No acute abnormality is seen. The results were communicated with Dr. Fitzpatrick the referring physician. Reading Location: [place] [address] CC: Dr. Arleen Lord DO; Dr. Matheus Fajardo MD Web Administrator: Signed Normal [facility] STROKE CTA Head AND Neck W/C onon 11-10-2024 STROKE CTA Head AND Neck W/Con [facility] [address] [place] [address] STROKE CTA Head AND Neck W/Con MR#: [id number] Acct: [id number] Name: MATTIE HERRON Rep #: [id number] : 1940 F 84 From: Roberto ocampo MD PCP: Dr. Matheus Fajardo MD Status: REG ER Study: STROKE CTA Head AND Neck W/Con Date of Exam: 0 11/10/24 Exam# [id number] Ordering Dr: Arleen Lord DO PROCEDURE: STROKE CTA HEAD AND NECK W/CON REASON FOR EXAM: Possible acute stroke. TECHNIQUE: CTA imaging of the head and neck from the aortic arch to the skull vertex with intravenous contrast. 3D reconstructions. CONTRAST: 94 cc of Isovue 370. COMPARISON: Comparison is made with prior CT scan of the head done earlier in the day. FINDINGS: Heterogeneous appearance of the right lobe of the thyroid suggestive of possible goiter is change. Aortic Arch: Normal size and branching pattern. Mild atherosclerotic plaque. Brachiocephalic and Subclavians: Tight stenosis due to calcific plaque at the origin of the left subclavian artery. RIGHT Carotid: Right CCA: Unremarkable. Right ICA: Unremarkable. Maximum stenosis (NASCET): % Right ECA: Unremarkable. LEFT Carotid: Left CCA: Unremarkable. Left ICA: Near occlusion at the origin of the left internal carotid artery due to calcific plaque formation. Maximum stenosis (NASCET): % Left ECA: Unremarkable. Vertebrals: Codominant. Arise from the subclavians. Both vertebrals form the basilar. RIGHT Vertebral: Unremarkable. LEFT Vertebral: Tiny left vertebral artery. No intracranial aneurysms or large vascular malformations are identified. Anterior cerebral arteries: Unremarkable. Middle cerebral arteries: Unremarkable. Basilar artery: Unremarkable. Posterior cerebral arteries: Unremarkable. Other major branches of the posterior circulation: Unremarkable. Major venous structures: Unremarkable. Other findings: No lymphadenopathy. Lung apices are clear. Bones are unremarkable. CT/STROKE CTA Head AND Neck W/Con IMPRESSION: RIGHT CAROTID: Unremarkable. LEFT CAROTID: Tight stenosis at the origin of left internal carotid artery. VERTEBRALS: Tiny left vertebral artery. INTRACRANIAL: No large vessel obstruction is seen. One or more dose reduction techniques were used (e.g., Automated exposure control, adjustment of the mA and/or kV according to patient size, use of iterative reconstruction technique). Reading Location: [facility] CC: Dr. Arleen Lord DO; Dr. Matheus Fajardo MD Web Administrator: Signed Normal [facility] Urinalysis, Completeon 11-10 EPI,SQUAMOUS 0-5 SEEN Normal 5-10 [facility] Comment on above: Order Comment: COLLE CTOR TO SPECIFY Performed By: #### L 400.0001 ####[facility] [address] [place], [address] RBC 0-5 SEEN Normal 0-5 [facility] Comment on above: Order Comment: COLLE CTOR TO SPECIFY Performed By: #### L 400.0001 ####[facility] [address] [place], [address] BACTERIA 0 SEEN Normal None Seen [facility] Comment on above: Order Comment: JOAN CTOR TO SPECIFY Performed By: #### L 400.0001 ####[facility] [address] [place], [address] Mucus Ql (Urine sed) 0 SEEN Normal [facility] Comment on above: Order Comment: JOAN CTOR TO SPECIFY Performed By: #### L 400.0001 ####[facility] [address] [place], [address] WBC 0 SEEN Normal 0-5 [facility] Comment on above: Order Comment: JOAN CTOR TO SPECIFY Performed By: #### L 400.0001 ####[facility] [address] [place], [address] [id number] 09-15-2024 [id number] HNO ID: [id number] Author: HYACINTH SON PT, DPT Service: ? Author Type: Physical Therapist Type: [id number] Filed: 09/15/2024 11:12 Note Text: [facility] Physical Therapy Plan of Care Certification Patient Name: Mattie Herron : 1940 [facility] #: [id number] Date: 09/13/2024 To: Matheus Fajardo MD From Therapist: Hyacinth Son PT, DPT RE: Patient Certification/ Recertification Your review, approval and electronic signature are required in order to comply with Payor: [employer] MEDICARE / Plan: [place] HMO / Product Type: HMO / regulations. 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 The patient presents with impairments in balance, gait, and strength. PROMIS? (Patient-Reported Outcomes Measurement Information System) scores were reviewed and identified as a rehabilitation concern. Prognosis for therapy is Fair due to: chronic nature of impairments, memory deficits, Prognosis may be improved by good support system/ coping skills, current objective clinical presentation. Pt has not fallen since using Rolator. The patient will benefit from skilled therapy services to meet the goals established for this plan of care as noted below. Classification Diagnosis Grouping: (parkinsonism) Goals for Episode of Care: established 09/13/24 Patient reported outcome of pain Interference will decrease T -score by a minimum of 5 points. Dickinson in home exercise program. Patient will demonstrate increase in B hip abduction strength to 5/5 during manual muscle testing in order to improve function for balance. Patient will Improve Timed Up and Go to 15 seconds to demonstrate decreased risk of falling with rollator. (At eval was 27.13 with Rolator) Patient will improve 5 time sit to stand to demonstrate improvement in functional lower extremity strength. (At eval was 32.9 with hands) Patient Goals: to get balance better Time Frame for Goals and Treatment : 10/15/24 Planned Interventions, Frequency, and Duration: Current Frequency: 1x/week Duration: 4 weeks Total Number of Visits Planned: 4 Planned Treatment Interventions: Therapeutic exercise (83956), Neuromuscular re-education (22641), Gait Training (38848), Self-nursing home management (05314), Patient/Family/Caregiver Education PLAN FOR NEXT VISIT: review HEP, add more balance testing, hip strengthening Patient demonstrates good understanding of plan of care and treatment. The above goals and plan of care were discussed and agreed upon by patient/family. For further details regarding this patient refer to the Physical Therapy electronically documented visit dated 09/13/2024. Provider Attestation I have reviewed the treatment plan for Mattie Herron, [facility]# [id number] for the period of -- , established on 09/13/2024. Signature certifies the need for therapy services. [facility] CNTHERAPYon 09-13-2024 CNTHERAPY OT/PT/Speech Visit ( PTMDRG) GOPALMATTIE Grisel ([id number]) 1940 F Date Time Provider Department 09/13/24 3:00 PM HYACINTH SON PTMDRG Date Time Provider Department Center 09/13/2024 3:00 PM [id number] SON PTMDRG [facility] Reason for Visit: PT Eval [747] Patient Education [91] PT Discharge [752] Visit Diagnoses: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 behavioral disturbance, psychotic disturbance, mood disturbance, or anxiety, unspecified dementia type (HCC) [F03.B0] 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 (HCC) [G20.A1] Gait abnormality [R26.9] Allergies As of Date: 09/13/2024 Noted Allergy Reaction AMOXICILLIN 02/27/2021 1 - Mental Status Change BEE STING 06/21/2012 4 - Hives 7 - Swelling 12 - Shortness of Breath PERCOCET (OXYCODONE-ACETAMINOPHEN) 015 14 - Other: See Comments Comments: Patient passed out ROSUVASTATIN 09/15/2011 14 - Other: See Comments Comments: Leg cramps. SULFA (SULFONAMIDE ANTIBIOTICS) 01/04/2004 VICODIN (HYDROCODONE-ACETAMINOPHE*2014 14 - Other: See Comments Comments: Patient passed out from medication ZOCOR (SIMVASTATIN) 04/09/2006 14 - Other: See Comments CLAVULANIC ACID 01/26/2021 9 - Itching Date Reviewed: 08/24/2024 Reviewed by: Lizzy Byrd MA - Fully Assessed Prescriptions as of 11/28/2024 - oseltamivir (TAMIFLU) 6 mg/mL susr oral liquid TAKE 5ML BY MOUTH TWICE DAILY FOR 4 DAYS. DISCARD THE REMAINDER - atenolol (TENORMIN) 25 mg tablet Take 1 tablet by mouth every other day. - gabapentin (NEURONTIN) 300 mg capsule Take 1 capsule by mouth three times a day for 180 days. - mirabegron (MYRBETRIQ) 50 mg Tb24 Take 1 tablet by mouth once daily. - PARoxetine (PAXIL) 10 mg tablet Take 1 tablet by mouth once daily. - donepezil (ARICEPT) 10 mg tablet Take 1 tablet by mouth once daily. - atorvastatin (LIPITOR) 80 mg tablet Take 1 tablet by mouth daily at bedtime. - nitroglycerin sublingual (NITROQUICK) 0.4 mg SL tablet Dissolve 1 tablet under the tongue as needed. FOR CHEST PAIN. IF NO RELIEF CALL 911 - triamcinolone acetonide (NASACORT AQ) 55 mcg nasal inhaler Use 2 Sprays in the nose once daily. - CPAP CPAP mask and other supplies as needed. Mask per pt preference, tubing, filters, heated humidity, lifetime supplies. Dx: JL on CPAP. G47.33. - Cholecalciferol, Vitamin D3, 2,000 unit cap Take 2 capsules by mouth once daily. - ASPIRIN 81 MG TAB once daily Engineering Project Designer: Therapy (PT/OT/Speech/Resp) ID: [id number] 09/13/2024 3:49 PM Author: HYACINTH SON Signed by HYACINTH SON PT, DPT on 09/13/2024 at 3:49 PM Document text: Program_ID:[id number] Access Code: [email or web address] URL: [email or web address] Date: 09-13-2024 Prepared By: Hyacinth Son Program Notes Exercises - Sidelying Hip Abduction - 1 x daily - 7 x weekly - 1-2 sets - 10 reps - supine bridge with tummy tuck - 1 x daily - 7 x weekly - 1-2 sets - 10 reps - Sit to Stand with Armchair - 1 x daily - 7 x weekly - 1 sets - 10 reps - Tandem Walking with Counter Support - 1 x daily - 7 x weekly - 1 sets - 5 reps ---- Normal [facility] THERAPY NTon 09-13-2024 THERAPY NT HNO ID: [id number] Author: HYACINTH SON, PT, DPT Service: Physical Therapy Author Type: Physical Therapist Type: Therapy (PT/OT/Speech/Resp) Filed: 09/13/2024 15:49 Note Text: Program_ID:[id number] Access Code: [email or web address] URL: [email or web address] Date: 09-13-2024 Prepared By: Hyacinth Son Program Notes Exercises - Sidelying Hip Abduction - 1 x daily - 7 x weekly - 1-2 sets - 10 reps - supine bridge with tummy tuck - 1 x daily - 7 x weekly - 1-2 sets - 10 reps - Sit to Stand with Armchair - 1 x daily - 7 x weekly - 1 sets - 10 reps - Tandem Walking with Counter Support - 1 x daily - 7 x weekly - 1 sets - 5 reps [facility] ([facility] ) MATTIE HERRON ([id number]) 1940 F Date Time Provider Department 08/24/24 10:30 AM TRAM SANTANA [facility] During your visit today, we recorded the following information about you: Pulse Blood pressure Weight 64/minute 146/72 71.2 kg Tram Santana MD 08/24/2024 10:56 AM Signed FOLLOW UP NOTE Subjective Mattie Herron is a 84 year old female who presents for follow up. 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 Her examination demonstrates severe hearing loss, disorientation, impaired recall, R>L mild parkinsonism, LE numbness, and sensory ataxic gait. 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 Probably Alzheimer's based on pattern but also has severe hearing loss and she is on oxybutynin which could be contributing. Offered MRI Brain, deferred. Start donepezil 5 mg daily. Encouraged activity. Ask urology about alternative bladder medications. For Pism, would just recommend observation for now. Mild symptoms not impacting function. Gait is from sensory ataxia not Parkinson's, which levodopa doesn't help. 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 Continue use of walker. HPI Current Issues - Doing better since the last visit - She hasn't noticed much difference but thinks things are better. More alert, more interested in doing things, able to concentrate enough to read a book sometimes, paying attention when TV is on - Got B12 replaced - No side effects to donepezil - No improvement in balance, scheduled for physical therapy - Down 11 pounds, appetite isn't as good, doing things to try to increase her intake - Oxybutynin to myrbetriq Current Outpatient Medications Medication Sig Dispense Refill gabapentin (NEURONTIN) 300 mg capsule Take 1 capsule by mouth three times a day for 90 days. 90 capsule 2 mirabegron (MYRBETRIQ) 50 mg Tb24 Take 1 tablet by mouth once daily. 30 tablet 2 atorvastatin (LIPITOR) 80 mg tablet Take 1 tablet by mouth daily at bedtime. 90 tablet 3 donepezil (ARICEPT) 5 mg tablet Take 1 tablet by mouth once daily. 90 tablet 1 atenolol (TENORMIN) 25 mg tablet Take 1 tablet by mouth once daily. 90 tablet 3 PARoxetine (PAXIL) 10 mg tablet Take 1 tablet by mouth once daily. 90 tablet 3 nitroglycerin sublingual (NITROQUICK) 0.4 mg SL tablet Dissolve 1 tablet under the tongue as needed. FOR CHEST PAIN. IF NO RELIEF CALL 911 25 tablet 0 triamcinolone acetonide (NASACORT AQ) 55 mcg nasal inhaler Use 2 Sprays in the nose once daily. CPAP CPAP mask and other supplies as needed. Mask per pt preference, tubing, filters, heated humidity, lifetime supplies. Dx: JL on CPAP. G47.33. 1 Device 0 Cholecalciferol, Vitamin D3, 2,000 unit cap Take 2 capsules by mouth once daily. 0 ASPIRIN 81 MG TAB once daily 0 No current facility-administered medications for this visit. Objective OBJECTIVE 08/24/24 1025 BP: 146/72 Pulse: 64 SpO2: 96% Weight: 71.2 kg (156 lb 15.5 oz) General: General Appearance: Well appearing, alert, in no acute distress, well-hydrated, well nourished. Head: Normocephalic Neck: Supple Heart: RRR Neurologic Exam: She is alert. Reg 3/ [facility], , Tue x, age 84, WORLD -> DR KITTY 0/3 -> 03 -> 23. Affect is appropriate. Cranial Nerves: Extraocular movements show full and smooth pursuits. No nystagmus. Visual petersen are full to confrontation. Facial activation is symmetric. Hearing is only mildly impaired today. There is no hypomimia. There is no hypophonia. There is no dysarthria. Tongue is midline. Palate elevates symmetrically. Shoulder shrug is normal. Motor: Muscle bulk is normal. Muscle power is full. Mild R> bradykinesia. Mild bilateral rest tremor, subtle postural re-emergent tremor. No rigidity today Sensory: Vibration absent ankles present knees Reflex: Biceps and brachioradialis is 2+ bilaterally. Patellar reflex 1+ bilaterally. Achilles 0 bilaterally. Coordination: Finger to nose is smooth without ataxia. Gait/station: Wider base, uses walker for support, decreased stride length, minimally stooped, romberg positive even with eyes open. DATA REVIEW Actual films/image/tracing reviewed and summarized as follows: n/a Old records reviewed and summarized as follows: 07/2024 labs B12 800, MMA pending, A1c 6, TSH 3.5, FT4 1.2 04/2024 labs Folate 7.8, B12 (more content not included)... Normal [facility] ALBUMIN/CREATININE RATIO, UR INEon 08-22-2024 Albumin DL <= 20 mg/L (U) [Mass/Vol] mg/dL Normal [facility] Comment on above: Order Comment: Speci men Type: URINE SPECIMENOrdering Facility: [facility] Address: [address] [place] [address] Performed By: #### U ACR ####[facility] [id number] [place] [address] [place] Albumin/Creatinine (U) [Mass ratio] <11 Normal <30 [facility] Comment on above: Order Comment: Speci men Type: URINE SPECIMENOrdering Facility: [facility] Address: [address] [place] [address] Result Comment: Adul t Male and Female Nephrotic Criteria: <30 mg/g is considered normal to mildly increased 30-300 mg/g is considered moderately increased >300 mg/g is considered severely increased KDIGO. (2013). KDIGO 2012 Clinical Practice Guideline for the Evaluation and Management of Chronic Kidney Disease. Official Journal of the International Society of Nephrology, 3(1), 1-150. Performed By: #### U ACR ####[facility] [id number] [place] [address] [place] Creatinine (U) [Mass/Vol] 112.7 mg/dL Normal 20.0-300.0 [facility] Comment on above: Order Comment: Speci men Type: URINE SPECIMENOrdering Facility: [facility] Address: [address] [place] [address] Performed By: #### U ACR ####[facility] [id number] [place] [id number] [place] Basic metabolic 2000 panelon 11-25-2024 Anion gap [Moles/Vol] 10 mmol/L Normal 8-15 [facility] Comment on above: Order Comment: Speci men Type: BLOOD SPECIMENOrdering Facility: [facility] Address: [address] [place] [address] Performed By: #### 2 4321-2, 9, 6-3, 302-7 ####[facility] [id number] [facility] [place] [address] [place] Calcium [Mass/Vol] 9.8 mg/dL Normal 8.5-10.2 [facility] Comment on above: Order Comment: Speci men Type: BLOOD SPECIMENOrdering Facility: [facility] Address: [address] [place] [address] Performed By: #### 2 4321-2, 2132-05, 3015-3, 3023-7 ####[facility] [id number] [place] [address] [place] Chloride [Moles/Vol] 104 mmol/L Normal 98-107 [facility] Comment on above: Order Comment: Speci men Type: BLOOD SPECIMENOrdering Facility: [facility] Address: [address] [place] [address] Performed By: #### 2 4321-2, 9, 3015-3, 3023-7 ####[facility] [id number] [place] [id number] [place] CO2 [Moles/Vol] 29 mmol/L Normal 22-30 [facility] Comment on above: Order Comment: Speci men Type: BLOOD SPECIMENOrdering Facility: [facility] Address: [address] [place] [address] Performed By: #### 2 4321-2, 9, 3015-3, 302-7 ####[facility] [id number] [facility] [place] [id number] [place] Creatinine [Mass/Vol] 1.01 mg/dL High 0.58-0.96 [facility] Comment on above: Order Comment: Stella johnson Type: BLOOD SPECIMENOrdering Facility: [facility] Address: [address] [place] [id number] Performed By: #### 2 4321-2, 2131-9, 6-3, 3024-7 ####[facility] [id number] [place] [address] [place] Creatinine and Glomerular filtration rate.predicted panel (S/P/Bld) 55 mL/min/1.73m??? Low >=60 [facility] Comment on above: Order Comment: Stella johnson Type: BLOOD SPECIMENOrdering Facility: [facility] Address: [address] [place] [address] Result Comment: Bryanna mated Glomerular Filtration Rate (eGFR) is calculated using the 2020 CKD-EPI creatinine equation. This equation utilizes serum creatinine, sex, and age as parameters. The creatinine assay has traceable calibration to isotope dilution-mass spectrometry. Refer to KDIGO guidelines for clinical interpretation. In patients with unstable renal function, e.g. those with acute kidney injury, the eGFR may not accurately reflect actual GFR. Performed By: #### 2 4321-2, 9, 6-3, 7 ####[facility] [id number] [address] [address] [place] Glucose [Mass/Vol] 112 mg/dL High 74-99 [facility] Comment on above: Order Comment: Stella johnson Type: BLOOD SPECIMENOrdering Facility: [facility] Address: [address] [place] [address] Result Comment: The [place] Diabetes Association (ADA) provides guidance for cutoff values for fasting glucose and random glucose. The ADA defines fasting as no caloric intake for at least 8 hours. Fasting plasma glucose results between 100 to 125 mg/dL indicate increased risk for diabetes (prediabetes). Fasting plasma glucose results greater than or equal to 126 mg/dL meet the criteria for diagnosis of diabetes. In the absence of unequivocal hyperglycemia, results should be confirmed by repeat testing. In a patient with classic symptoms of hyperglycemia or hyperglycemic crisis, random plasma glucose results greater than or equal to 200 mg/dL meet the criteria for diagnosis of diabetes. Reference: Standards of Medical Care in Diabetes 2016, [place] Diabetes Association. Diabetes Care. 2016.39(Suppl 1). Performed By: #### 2 4321-2, 9, 6-3, 7 ####[facility] [id number] [address] [address] [place] Potassium [Moles/Vol] 4.3 mmol/L Normal 3.7-5.1 [facility] Comment on above: Order Comment: Speci men Type: BLOOD SPECIMENOrdering Facility: [facility] Address: [address] [place] [address] Performed By: #### 2 432-2, 2132-05, 3015-3, 7 ####[facility] [id number] [place] [id number] [place] Sodium [Moles/Vol] 143 mmol/L Normal 136-144 [facility] Comment on above: Order Comment: Speci men Type: BLOOD SPECIMENOrdering Facility: [facility] Address: [address] [place] [address] Performed By: #### 2 432-2, 2132-05, 3015-3, 7 ####[facility] [id number] [place] [id number] [place] Urea nitrogen [Mass/Vol] 14 mg/dL Normal 7-21 [facility] Comment on above: Order Comment: Speci men Type: BLOOD SPECIMENOrdering Facility: [facility] Address: [address] [place] [address] Performed By: #### 2 4320-2, 2132-05, 3015-3, 7 ####[facility] [id number] [address] [address] [place] CBC panel Auto (Bld)on 08-22 Erythrocyte distribution width (RBC) [Ratio] 14.6 % Normal 11.5-15.0 [facility] Comment on above: Order Comment: Speci men Type: BLOOD SPECIMENOrdering Facility: [facility] Address: [address] [place] [address] Performed By: #### 5 8410-2 ####[facility] [id number] [place] [address] [place] Hematocrit (Bld) [Volume fraction] 49.5 % High 36.0-46.0 [facility] Comment on above: Order Comment: Speci men Type: BLOOD SPECIMENOrdering Facility: [facility] Address: [address] [place] [address] Performed By: #### 5 8410-2 ####[facility] [id number] [place] [address] [place] Hemoglobin (Bld) [Mass/Vol] 15.8 g/dL High 11.5-15.5 [facility] Comment on above: Order Comment: Speci men Type: BLOOD SPECIMENOrdering Facility: [facility] Address: [address] [place] [address] Performed By: #### 5 8410-2 ####[facility] [id number] [place] [address] [place] MCH (RBC) [Entitic mass] 28.6 pg Normal 26.0-34.0 [facility] Comment on above: Order Comment: Speci men Type: BLOOD SPECIMENOrdering Facility: [facility] Address: [address] [place] [address] Performed By: #### 5 8410-2 ####[facility] [id number] [place] [address] [place] MCHC (RBC) [Mass/Vol] 31.9 g/dL Normal 30.5-36.0 [facility] Comment on above: Order Comment: Speci men Type: BLOOD SPECIMENOrdering Facility: [facility] Address: [address] [place] [address] Performed By: #### 5 8410-2 ####[facility] [id number] [place] [address] [place] MCV (RBC) [Entitic vol] 89.5 fL Normal 80.0-100.0 [facility] Comment on above: Order Comment: Speci men Type: BLOOD SPECIMENOrdering Facility: [facility] Address: [address] [place] [address] Performed By: #### 5 8410-2 ####[facility] [id number] [place] [address] [place] Nucleated RBC (Bld) [#/Vol] 10*3/uL Normal <0.01 [facility] Comment on above: Order Comment: Speci men Type: BLOOD SPECIMENOrdering Facility: [facility] Address: [address] [place] [address] Performed By: #### 5 8410-2 ####[facility] [id number] [place] [address] [place] Platelet mean volume (Bld) [Entitic vol] 12.6 fL Normal 9.0-12.7 [facility] Comment on above: Order Comment: Speci men Type: BLOOD SPECIMENOrdering Facility: [facility] Address: [address] [place] [address] Performed By: #### 5 8410-2 ####[facility] [id number] [place] [address] [place] Platelets (Bld) [#/Vol] 146 10*3/uL Low 150-400 [facility] Comment on above: Order Comment: Speci men Type: BLOOD SPECIMENOrdering Facility: [facility] Address: [address] [place] [address] Performed By: #### 5 8410-2 ####[facility] [id number] [place] [address] [place] RBC (Bld) [#/Vol] 5.53 10*6/uL High 3.90-5.20 [facility] Comment on above: Order Comment: Speci men Type: BLOOD SPECIMENOrdering Facility: [facility] Address: [address] [place] [address] Performed By: #### 5 8410-2 ####[facility] [id number] [place] [address] [place] WBC (Bld) [#/Vol] 7.47 10*3/uL Normal 3.70-11.00 [facility] Comment on above: Order Comment: Speci men Type: BLOOD SPECIMENOrdering Facility: [facility] Address: [address] [place] [address] Performed By: #### 5 8410-2 ####[facility] [id number] [place] [address] [facility] [place] CNOVon 08-22-2024 CNOV Office Visit (INTMWS ) MATTIE HERRON ([id number]) 1940 F Date Time Provider Department 08/22/24 3:00 PM MATHEUS FAJARDO INTMWS During your visit today, we recorded the following information about you: Temperature Pulse Blood pressure Weight 97.8 degrees 67/minute 123/71 71.2 kg Matheus Fajardo MD 08/22/2024 4:11 PM Signed This note was created using NoteWriter. Subjective Patient presents with: F/U 6 months Mattie Herron is a 84 year old female. She complained of difficulty with balance and increased dependence on her rollator walker. She denied falling but was concerned since her sister had similar issues and had a significant fall. She did see surgery for follow up colonoscopy, and she declined further routine screening. She also saw neurology (Dr. Santana) and was started on Aricept for dementia. Parkinson's was being monitored at this time. She had some minor lab abnormalities with her dementia work up. Review of Systems Constitutional: Negative for appetite change, fatigue, fever and unexpected weight change. Respiratory: Negative for cough, chest tightness, shortness of breath and wheezing. Cardiovascular: Negative for chest pain, palpitations and leg swelling. Gastrointestinal: Negative for abdominal pain, constipation and diarrhea. Musculoskeletal: Positive for gait problem. Neurological: Positive for tremors and weakness. Negative for dizziness and light-headedness. ACTIVE PROBLEM LIST Coronary Atherosclerosis Mixed Hyperlipidemia Esophageal Reflux Anxiety State Chronic Rhinitis Tobacco Use Disorder Aortic Valve Sclerosis Bilateral Carotid Artery Stenosis Osteoporosis, Post-Menopausal Ddd (Degenerative Disc Disease), Lumbar Vitamin D Deficiency Jl On Cpap Primary Hypertension Diabetic Peripheral Neuropathy Associated With Type 2 Diabetes Mellitus (Hcc) Polycythemia Urgency Incontinence Gait Abnormality Moderate Dementia Without Behavioral Disturbance, Psychotic Disturbance, Mood Disturbance, Or Anxiety ([facility]) Cad S/P Percutaneous Coronary Angioplasty Pad (Peripheral Artery Disease) (Formerly [facility]) Nonrheumatic Aortic Valve Stenosis S/P Right Coronary Artery (Rca) Stent Placement Parkinson's Disease Without Dyskinesia Or Fluctuating Manifestations (Formerly [facility]) Social History Tobacco Use Smoking status: Every Day Current packs/day: 0.66 Average packs/day: 0.7 packs/day for 58.2 years (38.4 ttl pk-yrs) Types: Cigarettes Start date: 06/30/1966 Smokeless tobacco: Never Vaping Use Vaping status: Never Used Substance Use Topics Alcohol use: No Drug use: No Current Outpatient Medications Medication Sig gabapentin (NEURONTIN) 300 mg capsule Take 1 capsule by mouth three times a day for 90 days. mirabegron (MYRBETRIQ) 50 mg Tb24 Take 1 tablet by mouth once daily. atorvastatin (LIPITOR) 80 mg tablet Take 1 tablet by mouth daily at bedtime. donepezil (ARICEPT) 5 mg tablet Take 1 tablet by mouth once daily. atenolol (TENORMIN) 25 mg tablet Take 1 tablet by mouth once daily. PARoxetine (PAXIL) 10 mg tablet Take 1 tablet by mouth once daily. nitroglycerin sublingual (NITROQUICK) 0.4 mg SL tablet Dissolve 1 tablet under the tongue as needed. FOR CHEST PAIN. IF NO RELIEF CALL 911 triamcinolone acetonide (NASACORT AQ) 55 mcg nasal inhaler Use 2 Sprays in the nose once daily. CPAP CPAP mask and other supplies as needed. Mask per pt preference, tubing, filters, heated humidity, lifetime supplies. Dx: JL on CPAP. G47.33. Cholecalciferol, Vitamin D3, 2,000 unit cap Take 2 capsules by mouth once daily. ASPIRIN 81 MG TAB once daily omeprazole (PRILOSEC) 40 mg capsule Take 1 capsule by mouth once daily. No current facility-administered medications for this visit. Objective BP 123/71 (BP Site: Right Arm, BP Position: Sitting, BP Cuff Size: Large Adult) Pulse 67 Temp 36.6 ?C (97.8 ?F) (Temporal) Wt 71.2 kg (156 lb 15.5 oz) BMI 24.58 kg/m? Physical Exam Constitutional: General: She is not in acute distress. Appearance: She is not ill-appearing. HENT: Head: Atraumatic. Eyes: Conjunctiva/sclera: Conjunctivae normal. Cardiovascular: Rate and Rhythm: Normal rate and regular rhythm. Pulses: Decreased pulses. Heart sounds: S1 normal and S2 normal. Murmur heard. Systolic murmur is present with a grade of 1/6. Pulmonary: Effort: No respiratory distress. Breath sounds: Rhonchi present. No wheezing or rales. Abdominal: Palpations: Abdomen is soft. Tenderness: There is no abdominal tenderness. Musculoskeletal: Right lower leg: No edema. Left lower leg: No edema. Neurological: General: No focal deficit present. Mental Status: She is alert. Mental status is at baseline. Motor: Tremor present. Gait: Gait abnormal. Comments: Rollator. 1 assist with transfer. Feet:Shoes and socks removed, No ulcers; hammer (more content not included)... Normal [facility] HbA1c (Bld)on 08-22-2024 Average glucose Estimated from glycated hemoglobin (Bld) [Mass/Vol] 126 mg/dL Normal [facility] Comment on above: Order Comment: Speci men Type: BLOOD SPECIMENOrdering Facility: [facility] Address: [address] [place] [address] Result Comment: eAG: (Estimated average glucose) is a calculated value from HgbA1c and is senior human resources representative of the average blood glucose level in the last 2-3 month period. Performed By: #### 5 5454-3 ####[facility] [id number] [place] [address] [place] HbA1c (Bld) [Mass fraction] 6.0 % High 4.3-5.6 [facility] Comment on above: Order Comment: Speci men Type: BLOOD SPECIMENOrdering Facility: [facility] Address: [address] [place] [address] Result Comment: [place] Diabetes Association guidelines indicate that patients with HgbA1c in the range 5.7-6.4% are at increased risk for development of diabetes, and intervention by lifestyle modification may be beneficial. HgbA1c greater or equal to 6.5% is considered diagnostic of diabetes. Performed By: #### 5 5454-3 ####[facility] [id number] [place] [address] [place] Methylmalonate SerPl-sCncon 08-22-2024 Methylmalonate [Moles/Vol] 0.21 umol/L Normal <=0.40 [facility] Comment on above: Order Comment: Sidrai alex Type: BLOOD SPECIMENOrdering Facility: [facility] Address: [address] [place] [address] Result Comment: This test was developed, and its performance characteristics determined by the [facility] Department of Pathology and Laboratory Medicine. It has not been cleared or approved by the FDA. The [facility] Department of Pathology and Laboratory Medicine is regulated under CLIA as qualified to perform high-complexity testing. This test is used for clinical purposes. It should not be regarded as investigational or for research. Performed By: #### 1 3964-2 ####[facility] [id number] [place] [address] [place] T4 Free SerPl-mCncon 024 Free T4 [Mass/Vol] 1.2 ng/dL Normal 0.9-1.7 [facility] Comment on above: Order Comment: Speci men Type: BLOOD SPECIMENOrdering Facility: [facility] Address: [address] [place] [address] Performed By: #### 2 4321-2, 2-9, 3016-3, 3024-7 ####[facility] [id number] [place] [address] [place] TSH SerPl-aCncon 08-22-2024 TSH Qn 3.500 m[IU]/L Normal 0.270-4.20 0 [facility] Comment on above: Order Comment: Speci men Type: BLOOD SPECIMENOrdering Facility: [facility] Address: [address] [place] [address] Performed By: #### 2 4321-2, 2131-9, 6-3, 3024-7 ####[facility] [id number] [place] [address] [place] Vit B12 SerPl-mCncon 024 Cobalamin (Vitamin B12) [Mass/Vol] 800 pg/mL Normal 232-1245 [facility] Comment on above: Order Comment: Speci men Type: BLOOD SPECIMENOrdering Facility: [facility] Address: [address] [place] [address] Performed By: #### 2 4321-2, 2131-9, 6-3, 302-7 ####[facility] [id number] [place] [id number] [place] ECHOon 06-02-2024 Echocardiography Echocardiography Rep ort: Transthoracic Echo [facility] Date of service: 06/02/2024 11:36:22 AM [employer] Ordering physician: ELVIRA GUNTER Indication: CAD Technologist: Yolie Sparks [facility] Interpreting physician: Elvira Gunter DO PATIENT: Name: MRS. MATTIE HERRON : 1940 Age: 84 years Gender: F History of hypertension, dyslipidemia and coronary artery disease. Previous cardiovascular interventions: PCI Primary rhythm: sinus. Height: 170.20 cm BSA: 1.86 m Weight: 73.50 kg BMI: 25.4 kg/m Heart rate 62 bpm Technically difficult exam due to body habitus. Color Doppler was utilized to interrogate the cardiac valves assessed and spectral Doppler was utilized to determine the flow velocities and pressure gradients reported in this exam. Myocardial strain analysis was performed in this exam to aid in the assessment of cardiac function. MEASUREMENTS: Value Indexed Normal Max aortic dimension 3.2 cm Ao < 3.8 Left atrial volume 36 ml (biplane A-L) 19 ml/m Duncan <= 34 LV ID (diastole) 3.7 cm (2D) 2.00 cm/m LV ID (systole) 2.3 cm (2D) 1.26 cm/m IVS, leaflet tips 0.9 cm (2D) Posterior wall thickness 1.1 cm (2D) Left ventricular mass 115 g (2D) 62 g/m Global peak long strain -18.8 % LV stroke volume 29 ml (2D biplane) LVOT stroke volume 69 ml 37 ml/m LV end diastolic volume 48 ml (2D biplane) 25.9 ml/m 29<=EDVi<62 LV end systolic volume 19 ml (2D biplane) 10.3 ml/m Ejection Fraction 60 % (2D biplane) EF > 54 FINDINGS: LEFT VENTRICLE The left ventricle is small. Left ventricular systolic function is normal. Global LV myocardial strain is normal. Grade I left ventricular diastolic dysfunction. Mitral annular lateral E/e': 9.5. Mitral annular septal E/e': 9.5. Wall Motion: All scored segments are normal. RIGHT VENTRICLE The right ventricle is normal in size. Right ventricular systolic function is normal. RV systolic tissue Doppler velocity is 12.0 cm/s. Estimated right atrial pressure is 3 mmHg (although IVC not seen). LEFT ATRIUM The left atrial cavity is normal in size. RIGHT ATRIUM The right atrial cavity is normal in size. Inferior Vena Cava: The inferior vena cava appears normal measuring 1.5 cm. MITRAL VALVE The mitral valve leaflets are structurally normal. There is no mitral valve regurgitation. The pressure half time is 94 msec. The peak mitral E/A ratio is 0.68. The average mitral E/e' ratio is 9.5. The mitral flow deceleration time is 326 msec. TRICUSPID VALVE The tricuspid valve leaflets are structurally normal. There is no tricuspid valve regurgitation. AORTIC VALVE There is moderate aortic valve stenosis caused by calcified valve. There is trace aortic valve regurgitation. There is moderate thickening. There is moderate calcification. The peak gradient is 39 mmHg (peak velocity = 311.7 cm/s). The mean gradient is 21 mmHg. The LVOT mean velocity is 85.4 cm/s. The LVOT diameter is 1.9 cm. The aortic VTI is 57.1 cm. The mean velocity in the aortic valve is 214.2 cm/s. The dimensionless valve index is 0.42. AV area is 1.20 cm (0.65 cm /m ) by continuity, VTI. The LVOT stroke volume index is 37 ml/m . PULMONIC VALVE The pulmonic valve cusps are structurally normal. There is no pulmonic valve regurgitation. AORTA The visualized aorta is normal in size. Measurements - Mid ascending aorta 3.2 cm. PERICARDIUM There is no pericardial effusion. There is an epicardial fat pad. CONCLUSIONS: - Technically difficult exam due to body habitus. - Exam indication: CAD - The left ventricle is small. Left ventricular systolic function is normal. EF = 60 5% (2D biplane) Grade I left ventricular diastolic dysfunction. - The right ventricle is normal in size. Right ventricular systolic function is normal. - There is moderate aortic valve stenosis caused by calcified valve. AV area is 1.20 cm (0.65 cm /m ) by continuity, VTI. The peak gradient is 39 mmHg, the mean gradient is 21 mmHg and the dimensionless valve index is 0.42. - Exam was compared with the prior CC echocardiographic exam performed on 04/24/2015, AV gradients have increased. * * * Final * * * [employer] : [id number] [id number] Normal [facility] metabolic 2000 panelon 02-18-2024 Albumin [Mass/Vol] 4.1 g/dL 3.9 - 4.9 g/dL [facility] ALP [Catalytic activity/Vol] 76 U/L 34 - 123 U/L [facility] ALT [Catalytic activity/Vol] 16 U/L 7 - 38 U/L [facility] Anion gap [Moles/Vol] 11 mmol/L 9 - 18 mmol/L [facility] AST [Catalytic activity/Vol] 20 U/L 13 - 35 U/L [facility] Bilirubin [Mass/Vol] 0.5 mg/dL 0.2 - 1.3 mg/dL [facility] Calcium [Mass/Vol] 9.6 mg/dL 8.5 - 10. 2 mg/dL [facility] Chloride [Moles/Vol] 106 mmol/L High 97 - 105 mmol/L [facility] CO2 [Moles/Vol] 26 mmol/L 22 - 30 mmol/L [facility] Creatinine [Mass/Vol] 1.03 mg/dL High 0.58 - 0.96 mg/dL [facility] GFR/1.73 sq M.predicted among non-blacks MDRD (S/P/Bld) [Vol rate/Area] 53 mL/min/{1.73_m2} Low - PINF [facility] Comment on above: Estimated Glomerular Filtration Rate (eGFR) is calculated using the 2020 CKD-EPI creatinine equation. This equation utilizes serum creatinine, sex, and age as parameters. The creatinine assay has traceable calibration to isotope dilution-mass spectrometry. Refer to KDIGO guidelines for clinical interpretation. In patients with unstable renal function, e.g. those with acute kidney injury, the eGFR may not accurately reflect actual GFR. Glucose [Mass/Vol] 121 mg/dL High 74 - 99 mg/dL [facility] Comment on above: The [place] Diabete s Association (ADA) provides guidance for cutoff values for fasting glucose and random glucose. The ADA defines fasting as no caloric intake for at least 8 hours. Fasting plasma glucose results between 100 to 125 mg/dL indicate increased risk for diabetes (prediabetes). Fasting plasma glucose results greater than or equal to 126 mg/dL meet the criteria for diagnosis of diabetes. In the absence of unequivocal hyperglycemia, results should be confirmed by repeat testing. In a patient with classic symptoms of hyperglycemia or hyperglycemic crisis, random plasma glucose results greater than or equal to 200 mg/dL meet the criteria for diagnosis of diabetes. Reference: Standards of Medical Care in Diabetes 2016, [place] Diabetes Association. Diabetes Care. 2016.39(Suppl 1). Potassium [Moles/Vol] 4.4 mmol/L 3.7 - 5.1 mmol/L [facility] Protein [Mass/Vol] 6.6 g/dL 6.3 - 8.0 g/dL [facility] Sodium [Moles/Vol] 143 mmol/L 136 - 144 mmol/L [facility] Urea nitrogen [Mass/Vol] 12 mg/dL 7 - 21 mg/dL [facility] HbA1c (Bld)Ordered By: Dalia Dumont on 02-18-2024 Average glucose Estimated from glycated hemoglobin (Bld) [Mass/Vol] 134 mg/dL [facility] Comment on above: eAG: (Estimated aver age glucose) is a calculated value from HgbA1c and is senior human resources representative of the average blood glucose level in the last 2-3 month period. HbA1c (Bld) [Mass fraction] 6.3 % High 4.3 - 5.6 % [facility] Comment on above: [place] Diabetes As sociation guidelines indicate that patients with HgbA1c in the range 5.7-6.4% are at increased risk for development of diabetes, and intervention by lifestyle modification may be beneficial. HgbA1c greater or equal to 6.5% is considered diagnostic of diabetes. Interpretation and review of laboratory results Abnormal [facility] Lipid 1996 panelon 4 Cholesterol [Mass/Vol] 157 mg/dL NINF - 200 mg/dL [facility] Comment on above: <200 mg/dL, Desirabl e 200-239 mg/dL, Borderline high >239 mg/dL, High Cholesterol in HDL [Mass/Vol] 43 mg/dL 39 - PINF mg/dL [facility] Comment on above: 40-59 mg/dL, Accepta ble >59 mg/dL, High: Negative risk factor for coronary heart disease <40 mg/dL, Low: Positive risk factor for coronary heart disease Cholesterol in LDL [Mass/Vol] 79 mg/dL NINF - 100 mg/dL [facility] Comment on above: <100 mg/dL, Optimal 100-129 mg/dL, Near optimal/above optimal 130-159 mg/dL, Borderline high 160-189 mg/dL, High >189 mg/dL, Very high Secondary prevention optimal LDL Cholesterol levels are recommended to be < 70 mg/dL Cholesterol in LDL/Cholesterol in HDL [Mass ratio] 1.84 {ratio} NINF - 2.54 [facility] Comment on above: Reference: 1. National Cholesterol Education Program ATP III Guideline At-A-Glance Quick Desk Reference: National Heart, Lung, and Blood Turner. National Institutes of Health. 2001: NIH Publication No. 01-3305. 2. An International Atherosclerosis Society position paper: global recommendations for the management of dyslipidemia: executive summary, Atherosclerosis. 2014: 232(2):410-413. Cholesterol in VLDL [Mass/Vol] 35 mg/dL High NINF - 30 mg/dL [facility] Cholesterol non HDL [Mass/Vol] 114 mg/dL NINF - 130 mg/dL [facility] Comment on above: <130 mg/dL, Optimal 130-159 mg/dL, Near optimal/above optimal 160-189 mg/dL, Borderline high 190-219 mg/dL, High >219 mg/dL, Very high Secondary prevention optimal non HDL Cholesterol levels are recommended to be <100 mg/dL Cholesterol.total/ Cholesterol in HDL [Mass ratio] 3.65 {ratio} NINF - 5.10 [facility] Fasting Time 14 hrs [facility] Triglyceride [Mass/Vol] 173 mg/dL High NINF - 150 mg/dL [facility] Comment on above: <150 mg/dL, Normal 150-199 mg/dL, Borderline high 200-499 mg/dL, High >499 mg/dL, Very high No Panel Informationon 02-17 Interpretation and review of laboratory results Abnormal [facility] EMG(NEURO/NI)on 12-27-2021 [employer] Results can be seen in attached scanned documents. If you are a patient reviewing this test result, call the doctor who ordered the test with any questions. [facility] CNOVon 09-15-2017 CNOV Office Visit (AGCARDWST) MATTIE SHAW ([id number]) [address] [facility] Time Provider Rhihckwowh66/19/17 9:30 AM ANDRZEJ PRATER AGCARDWST During your visit today, we recorded the following information about you: Pulse Blood pressure Weight Height 63/minute 140/84 78.3 kg 1.676 Jaswant Prater MD 09/15/2017 5:34 PM SignedPERTINENT CARDIAC HISTORYASHD - IMI, POBA 1988, PCI RCA 2004Carotid diseaseEdema - venous insufficiencyPVDAAA - stent 2004OSA - CPAPDMHTNHLTobaccoismADHERENCE TO GUIDELINESACE-I or ARB for HF with prior LVEFANDlt;40 (NQF 0081) - declinedASA or Plavix for ASHD (NQF 0067) - metBeta christiano for ASHD with prior [place] or prior LVEFANDlt;40 (NQF 0070) - metBeta christiano for HF with prior LVEFANDlt;40 (NQF 0083) - N/AACE-I or ARB for ASHD with DM or prior LVEFANDlt;40 (NQF 0066) - declinedStatin therapy for ASHD or FHL or DM - metBMI documented and plan if ANDgt;25 (NQF 0421) - lifestyle recommendation formTobacco use screening and referral (NQF 0028) - lifestyle recommendation formRecommendation for whole food, plant based diet - lifestyle recommendation formCLINICAL IMPRESSION/PLAN:Mattie Herron is doing well. Her coronary disease is clinically stable.She is currently not on an SHAHEEN inhibitor. She has declined this in the past.This should be considered in the future, although she has no proteinuria onmost recent check.I strongly advised her to discontinue cigarettes and follow-up with vascularsurgery.I will see her in 6 months or as needed.Written and verbal health teaching given to patient, patient verbalizesunderstanding and agrees with treatment plan.This note was generated using [employer] voice recognition system, and there may besome incorrect words, spellings, and punctuation that were not noted inchecking the note before saving.DIAGNOSIS FOR VISIT:ASHDHypertensionHISTORY OF PRESENT ILLNESSMattie Herrno returns for follow-up of her coronary disease,hypertension and hyperlipidemia.She reports stable exercise tolerance. She has not yet discontinued smoking.She's had no orthopnea. Edema is unchanged. She's had no syncope, palpitations,TIAs, amaurosis or claudication.ALLERGIES:ALLERGIES Allergen Reactions- Bee Sting Hives, Swelling, Shortness of Breath- Percocet [Oxycodone* Other: See Comments Patient passed out- Rosuvastatin Other: See Comments Leg cramps.- Sulfa (Sulfonamide *- Vicodin [Hydrocodon* Other: See Comments Patient passed out from medication- Zocor [Simvastatin] Other: See CommentsCURRENT OUTPATIENT MEDICATIONS:CPAP CPAP mask and other supplies as needed. Mask per pt preference, tubing,filters, heated humidity, lifetime supplies. Dx: JL on CPAP. G47.33.atenolol (TENORMIN) 25 mg tablet Take 1 tablet by mouth once daily.atorvastatin (LIPITOR) 80 mg tablet Take 1 tablet by mouth daily at bedtime.omeprazole (PRILOSEC) 20 mg capsule Take 1 capsule by mouth daily beforebreakfast. 1/2 hr before meal.ipratropium bromide (ATROVENT) 0.06 % nasal spray Use 2 Sprays in the nosethree times daily.PARoxetine (PAXIL) 10 mg tablet Take 1 tablet by mouth once daily.nitroglycerin sublingual (NITROQUICK) 0.4 mg SL tablet Dissolve 1 tablet underthe tongue as needed. FOR CHEST PAIN. IF NO RELIEF CALL 911Cholecalciferol, Vitamin D3, 2,000 unit cap Take 2 capsules by mouth oncedaily.blood sugar diagnostic (CONTOUR TEST STRIPS) test strip Test daily as directed.DX: 250.00Lancets (FREESTYLE LANCETS) lancets check blood sugars daily. DX:250.00blood sugar diagnostic(FREESTYLE TEST STRIPS) Test daily as directed 250.00,ASPIRIN 81 MG TAB once dailyPHYSICAL EXAMINATION:VITAL SIGNS: BP 140/84 Pulse 63 Ht 5' 6ANDquot; (1.68m) Wt 172 lb 9.6 oz(78.3kg) BMI 27.87 kg/(m2).Chest: Clear to percussion and auscultation. Trachea is midline. Air entry isequal. Cardiac: Regular rhythm. S1 and S2 are normal. PMI is nondisplaced.There is a soft systolic ejection murmur. Carotids are brisk soft bilateralbruits. JVP is less than 10 cm. Abdomen: Soft and nontender. There are nopulsatile masses or bruits. No liver enlargement. Bowel sounds are active.Extremities: Trace edema. Pulses are intact and symmetrical.EKG showed sinus rhythm. There is no significant change from 05/29/16.Recent labs were reviewed. Renal function is normal. LDL was 85.Electronically Signed:CHERISE Huntleyecembmarcella 2016 9:52 [facility]: Cameron Jaramillo MD 09/15/2017 9:52 AM SignedLIFESTYLE CHANGEA healthy lifestyle is the most important component of your overall treatmentplan. Please give serious thought to the following areas and commit to makinglong term changes.EAT A WHOLE FOOD, PLANT BASED DIETThe nutrition your body gets is more important than the medicine you take.What matters most is the overall way you eat. We encourage you to minimize theuse of animal products (which include dairy and all meats except fatty fish)and use whole, unprocessed plant foods to provide your protein, vitamins andother nutrients. We have a lot of information to share with you on this topic. We also hold Shared Medical Appointments, where you can come visit with in the company of other patients and spend over an hour talking aboutthe challenges of changing the way you eat. This is not a ANDquot;dietANDquot;.It is a way of life that you will keep with you.EXERCISE REGULARLYIt is not important to spend hours in the gym, lifting weights and perspiringheavily. A total of 2-3 hours per week of aerobic (causing you to bemoderately short of breath) exercise is sufficient to improve your health.Talk to us before you begin a new exercise program, if you have heart diseaseor experience shortness of breath or chest pain.REDUCE STRESSChronic emotional and physical stress leads to disease. Ways of reducingstress include meditation, visualization, prayer, yoga and other forms ofrelaxation therapy. Consistency is the johnson. Find a technique that works foryou and do it every day.CULTIVATE RELATIONSHIPSLoneliness and isolation have a major negative impact on health. Seek outothers who can love, care for and nurture you. Avoid hurtful relationships.MAINTAIN IDEAL BODY WEIGHTThe best way to do this is to do all the things above. Our bodies naturallyfind the right weight if we keep moving and feed ourselves the right food. Ifyour BMI is greater than 25, we strongly recommend a referral to a weightmanagement program. Please speak to us or your family physician aboutavailable programs.AVOID NICOTINE IN ALL FORMSThis includes all tobacco products, whether chewed, smoked, vaped, or rubbed onthe skin. Smoking cessation programs, which can make use of tobaccosubstitutes, medications to suppress cravings and behavior management, areavailable. Please contact your family physician about programs in your area.Referring Provider: MATHEUS FAJARDO [[id number]]Allergies As of Date: 09/15/2017 Noted Allergy ReactionBEE STING 06/21/2012 4 - Hives 7 - Swelling 12 - Shortness of BreathPERCOCET (OXYCODONE-ACETAMINOPHEN) 015 14 - Other: See Comments Comments: Patient passed outROSUVASTATIN 09/15/2011 14 - Other: See Comments Comments: Leg cramps.SULFA (SULFONAMIDE ANTIBIOTICS) 01/04/2004VICODIN (HYDROCODONE-ACETAMINOPHE*2014 14 - Other: See Comments Comments: Patient passed out from medicationZOCOR (SIMVASTATIN) 04/09/2006 14 - Other: See CommentsDate Reviewed: 09/15/2017Reviewed by: Andrea Livingston) MARIN Posada - Fully AssessedReason for Visit: Follow Up [171] Cmt: 6 monthPrimary Visit Diagnosis:ASHD (arteriosclerotic heart disease) [I25.10] Other Visit Diagnosis:Essential hypertension [I10]Order(s):ECG B/O W INTERP (MED OFFICE) [ECG06] Order #: [id number] as of 09/15/2017 Sig: CPAP CPAP mask and other supplies * ATENOLOL 25 MG TABLET Take 1 tablet by mouth once d* ATORVASTATIN 80 MG TABLET Take 1 tablet by mouth daily * OMEPRAZOLE 20 MG CAPSULE,SAMUEL* Take 1 capsule by mouth daily* IPRATROPIUM BROMIDE 42 MCG (0* Use 2 Sprays in the nose thre* PAROXETINE 10 MG TABLET Take 1 tablet by mouth once d* NITROGLYCERIN 0.4 MG SUBLINGU* Dissolve 1 tablet under the t* CHOLECALCIFEROL (VITAMIN D3) * Take 2 capsules by mouth once* BLOOD SUGAR DIAGNOSTIC STRIPS Test daily as directed. DX: 2* LANCETS check blood sugars daily. DX* * FREESTYLE TEST STRIPS Test daily as directed 250.00* * ASPIRIN 81 MG TABLET once dailyProblem List As Of Date 09/15/2017 Noted Resolved Coronary atherosclerosis [I25.10] INVALID FOR* More... Mixed hyperlipidemia [E78.2] INVALID FOR* AORTIC ATRESIA/STENOSIS [Q25.29, Q25.1] INVALID FOR*11/03/2015 More... ESOPHAGEAL REFLUX [K21.9] INVALID FOR* Anxiety state [F41.1] INVALID FOR* CHRONIC RHINITIS [J31.0] INVALID FOR* BENIGN NEOPLASM LG BOWEL [D12.6] INVALID FOR* Postmenopausal atrophic vaginitis [N95.2] INVALID FOR*11/03/2015 TOBACCO USE DISORDER [F17.200] INVALID FOR* Diabetes mellitus type 2, controlled, without c*INVALID FOR* SEBACEOUS CYST [L72.3] INVALID FOR*01/29/2009 Esophagitis, unspecified [K20.9] INVALID FOR*11/03/2015 DIAPHRAGMATIC HERNIA [K44.9] INVALID FOR*01/29/2009 ACUTE GASTRITIS W/O HEMORRHAGE [K29.00] INVALID FOR*01/29/2009 Hematuria [599.7] INVALID FOR*02/12/2011 Urethritis, unspecified [N34.2] INVALID FOR*02/12/2011 Trigonitis [N30.30] INVALID FOR*05/09/2013 Other B-complex deficiencies [E53.8] INVALID FOR*02/12/2011 Pain in joint, lower leg [M25.569] INVALID FOR*11/03/2015 Ureterolithiasis [N20.1] INVALID FOR*02/12/2011 More... JL (obstructive sleep apnea) [G47.33] INVALID FOR*05/22/2015 More... 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 Vitamin D deficiency [E55.9] INVALID FOR* JL on CPAP [G47.33, Z99.89] INVALID FOR* More... Venous insufficiency of both lower extremities *INVALID FOR* Arteriosclerotic heart disease (ASHD) [I25.10] INVALID FOR*05/04/2017 Essential hypertension [I10] INVALID FOR* Diabetic peripheral neuropathy associated with *INVALID FOR* Other instructions from your clinician: LIFESTYLE CHANGE A healthy lifestyle is the most important component of your overall treatment plan. Please give serious thought to the following areas and commit to making fpc changes. EAT A WHOLE FOOD, PLANT BASED DIET The nutrition your body gets is more important than the medicine you take. What matters most is the overall way you eat. We encourage you to minimize the use of animal products (which include dairy and all meats except fatty fish) and use whole, unprocessed plant foods to provide your protein, vitamins and other nutrients. We have a lot of information to share with you on this topic. We also hold Shared Medical Appointments, where you can come visit with Dr. Prater in the company of other patients and spend over an hour talking about the challenges of changing the way you eat. This is not a diet. It is a way of life that you will keep with you. EXERCISE REGULARLY It is not important to spend hours in the gym, lifting weights and perspiring heavily. A total of 2-3 hours per week of aerobic (causing you to be moderately short of breath) exercise is sufficient to improve your health. Talk to us before you begin a new exercise program, if you have heart disease or experience shortness of breath or chest pain. REDUCE STRESS Chronic emotional and physical stress leads to disease. Ways of reducing stress include meditation, visualization, prayer, yoga and other forms of relaxation therapy. Consistency is the johnson. Find a technique that works for you and do it every day. CULTIVATE RELATIONSHIPS Loneliness and isolation have a major negative impact on health. Seek out others who can love, care for and nurture you. Avoid hurtful relationships. MAINTAIN IDEAL BODY WEIGHT The best way to do this is to do all the things above. Our bodies naturally find the right weight if we keep moving and feed ourselves the right food. If your BMI is greater than 25, we strongly recommend a referral to a weight management program. Please speak to us or your family physician about available programs. AVOID NICOTINE IN ALL FORMS This includes all tobacco products, whether chewed, smoked, vaped, or rubbed on the skin. Smoking cessation programs, which can make use of tobacco substitutes, medications to suppress cravings and behavior management, are available. Please contact your family physician about programs in your area.Classic SmartForms filed during this visit:Extended VitalsEncounter Number: [id number] Status:Closed by ANDRZEJ PRATER MD on 09/15/17 [facility] PROGRESSon 09-15-2017 PROGRESS HNO ID: [id number] thor: Andrzej Chaudhary: (none)Author Type: PhysicianType: Progress NotesFiled: 09/15/2017 5:34 PMNote Text:PERTINENT CARDIAC HISTORYASHD - IMI, POBA 1988, PCI RCA 2003Carotid diseaseEdema - venous insufficiencyPVDAAA - stent 2004OSA - CPAPDMHTNHLTobaccoismADHERENCE TO GUIDELINESACE-I or ARB for HF with prior LVEF<40 (NQF 0081) - declinedASA or Plavix for ASHD (NQF 0067) - metBeta christiano for ASHD with prior [place] or prior LVEF<40 (NQF 0070) - metBeta christiano for HF with prior LVEF<40 (NQF 0083) - N/AACE-I or ARB for ASHD with DM or prior LVEF<40 (NQF 0066) - declinedStatin therapy for ASHD or FHL or DM - metBMI documented and plan if >25 (NQF 0421) - lifestyle recommendation formTobacco use screening and referral (NQF 0028) - lifestyle recommendationformRecommendation for whole food, plant based diet - lifestyle recommendationformCLINICAL IMPRESSION/PLAN:Mattie Herron is doing well. Her coronary disease is clinicallystable.She is currently not on an SHAHEEN inhibitor. She has declined this in thepast. This should be considered in the future, although she has noproteinuria on most recent check.I strongly advised her to discontinue cigarettes and follow-up withvascular surgery.I will see her in 6 months or as needed.Written and verbal health teaching given to patient, patient verbalizesunderstanding and agrees with treatment plan.This note was generated using Saranas voice recognition system, and theremay be some incorrect words, spellings, and punctuation that were notnoted in checking the note before saving.DIAGNOSIS FOR VISIT:ASHDHypertensionHISTORY OF PRESENT ILLNESSMattie Herron returns for follow-up of her coronary disease,hypertension and hyperlipidemia.She reports stable exercise tolerance. She has not yet discontinuedsmoking. She's had no orthopnea. Edema is unchanged. She's had no syncope,palpitations, TIAs, amaurosis or claudication.ALLERGIES:ALLERGIES Allergen Reactions- Bee Sting Hives, Swelling, Shortness of Breath- Percocet [Oxycodone* Other: See Comments Patient passed out- Rosuvastatin Other: See Comments Leg cramps.- Sulfa (Sulfonamide *- Vicodin [Hydrocodon* Other: See Comments Patient passed out from medication- Zocor [Simvastatin] Other: See CommentsCURRENT OUTPATIENT MEDICATIONS:CPAP CPAP mask and other supplies as needed. Mask per pt preference,tubing, filters, heated humidity, lifetime supplies. Dx: LJ on CPAP.G47.33.atenolol (TENORMIN) 25 mg tablet Take 1 tablet by mouth once daily.atorvastatin (LIPITOR) 80 mg tablet Take 1 tablet by mouth daily atbedtime.omeprazole (PRILOSEC) 20 mg capsule Take 1 capsule by mouth daily beforebreakfast. 1/2 hr before meal.ipratropium bromide (ATROVENT) 0.06 % nasal spray Use 2 Sprays in the nosethree times daily.PARoxetine (PAXIL) 10 mg tablet Take 1 tablet by mouth once daily.nitroglycerin sublingual (NITROQUICK) 0.4 mg SL tablet Dissolve 1 tabletunder the tongue as needed. FOR CHEST PAIN. IF NO RELIEF CALL 911Cholecalciferol, Vitamin D3, 2,000 unit cap Take 2 capsules by mouth oncedaily.blood sugar diagnostic (CONTOUR TEST STRIPS) test strip Test daily asdirected. DX: 250.00Lancets (FREESTYLE LANCETS) lancets check blood sugars daily. DX:250.00blood sugar diagnostic(FREESTYLE TEST STRIPS) Test daily as xgaxfjmj425.00,ASPIRIN 81 MG TAB once dailyPHYSICAL EXAMINATION:VITAL SIGNS: BP 140/84 Pulse 63 Ht 5' 6 (1.68m) Wt 172 lb 9.6 oz(78.3kg) BMI 27.87 kg/(m2).Chest: Clear to percussion and auscultation. Trachea is midline. Airentry is equal. Cardiac: Regular rhythm. S1 and S2 are normal. PMI isnondisplaced. There is a soft systolic ejection murmur. Carotids arebrisk soft bilateral bruits. JVP is less than 10 cm. Abdomen: Soft andnontender. There are no pulsatile masses or bruits. No liverenlargement. Bowel sounds are active. Extremities: Trace edema. Pulsesare intact and symmetrical.EKG showed sinus rhythm. There is no significant change from 05/29/16.Recent labs were reviewed. Renal function is normal. LDL was 85.Electronically Signed:Andrzej Prater MDDecember 2016 9:52 [facility]: Matheus Fajardo MD [facility] Vital Signs Date Time Vital Sign Value Performing Clinician Facility 04-04-2025 14:22-0400 Body mass index (BMI) [Ratio] 26.38 kg/m2 Maribell Hill MD Work Phone: [facility] 04-04-2025 14:22-0400 Body weight 71.9 kg Maribell Hill MD Work Phone: [facility] 04-04-2025 14:22-0400 Diastolic blood pressure 70 mm[Hg] Maribell Hill MD Work Phone: [facility] 04-04-2025 14:22-0400 Heart rate 61 /min Maribell Hill MD Work Phone: [facility] 04-04-2025 14:22-0400 SaO2% (BldA) [Mass fraction] 96 % Maribell Hill MD Work Phone: [facility] 04-04-2025 14:22-0400 Systolic blood pressure 112 mm[Hg] Maribell Hill MD Work Phone: [facility] 03-21-2025 13:31-0400 Body height 170.[address] Matheus Fajardo MD Work Phone: [facility] 03-21-2025 13:31-0400 Body mass index (BMI) [Ratio] 23.8 kg/m2 Dr. Matheus Fajardo MD Work Phone: [facility] 03-21-2025 13:31-0400 Body temperature 98 [degF] Dr. Matheus Fajardo MD Work Phone: 7(459)[phone] [place] [address] 03-21-2025 13:31-0400 Body weight 68.[address] Matheus Fajardo MD Work Phone: 1(540)580-895562 [place] [address] 03-21-2025 13:31-0400 Diastolic blood pressure 68 mm[Hg] Dr. Matheus Fajardo MD Work Phone: 8(565)993-781662 [place] [address] 03-21-2025 13:31-0400 Heart rate 77 /min Dr. Matheus Fajardo MD Work Phone: 1(830)046-021562 [place] [address] 03-21-2025 13:31-0400 Respiratory rate 16 /min Dr. Matheus Fajardo MD Work Phone: 5(170)004-054962 [place] [address] 03-21-2025 13:31-0400 SaO2% (BldA) [Mass fraction] 94 % Dr. Matheus Fajadro MD Work Phone: 1(699)035-827662 [place] [address] 03-21-2025 13:31-0400 Systolic blood pressure 114 mm[Hg] Dr. Matheus Fajardo MD Work Phone: 3(338)282-514662 [place] [address] 03-14-2025 14:23-0400 Body mass index (BMI) [Ratio] 25.61 kg/m2 Thea Swank CONTACT WORKER LITHOGRAPHY.OUTSIDE SALES ACCOUNT REPRESENTATIVE Work Phone: [facility] 03-14-2025 14:23-0400 Body weight 69.8 kg Thea Swank CONTACT WORKER LITHOGRAPHY.OUTSIDE SALES ACCOUNT REPRESENTATIVE Work Phone: [facility] 03-14-2025 14:23-0400 Diastolic blood pressure 70 mm[Hg] Thea Swank CONTACT WORKER LITHOGRAPHY.OUTSIDE SALES ACCOUNT REPRESENTATIVE Work Phone: [facility] 03-14-2025 14:23-0400 Heart rate 76 /min Thea Swank CONTACT WORKER LITHOGRAPHY.OUTSIDE SALES ACCOUNT REPRESENTATIVE Work Phone: [facility] 03-14-2025 14:23-0400 Respiratory rate 18 /min Thea Swank CONTACT WORKER LITHOGRAPHY.OUTSIDE SALES ACCOUNT REPRESENTATIVE Work Phone: [facility] 03-14-2025 14:23-0400 SaO2% (BldA) [Mass fraction] 93 % Thea Swank CONTACT WORKER LITHOGRAPHY.OUTSIDE SALES ACCOUNT REPRESENTATIVE Work Phone: [facility] 03-14-2025 14:23-0400 Systolic blood pressure 122 mm[Hg] Thea Swank CONTACT WORKER LITHOGRAPHY.OUTSIDE SALES ACCOUNT REPRESENTATIVE Work Phone: [facility] 02-27-2025 10:19-0400 Body mass index (BMI) [Ratio] 25.94 kg/m2 Tram Santana MD Work Phone: [facility] 02-27-2025 10:19-0400 Body weight 70.7 kg Tram Santana MD Work Phone: [facility] 02-27-2025 10:19-0400 Diastolic blood pressure 56 mm[Hg] Tram Santana MD Work Phone: [facility] 02-27-2025 10:19-0400 Heart rate 51 /min Tram Santana MD Work Phone: [facility] 02-27-2025 10:19-0400 SaO2% (BldA) [Mass fraction] 97 % Tram Santana MD Work Phone: [facility] 02-27-2025 10:19-0400 Systolic blood pressure 123 mm[Hg] Tram Santana MD Work Phone: [facility] 02-23-2025 09:00-0400 Body height 165.1 cm Matheus Fajardo MD Work Phone: [facility] 02-23-2025 09:00-0400 Body mass index (BMI) [Ratio] 25.53 kg/m2 Matheus Fajardo MD Work Phone: [facility] 02-23-2025 09:00-0400 Body weight 69.6 kg Matheus Fajardo MD Work Phone: [facility] 02-23-2025 09:00-0400 Diastolic blood pressure 58 mm[Hg] Matheus Fajardo MD Work Phone: [facility] 02-23-2025 09:00-0400 Heart rate 60 /min Matheus Fajardo MD Work Phone: [facility] 02-23-2025 09:00-0400 Respiratory rate 18 /min Matheus Fajardo MD Work Phone: [facility] 02-23-2025 09:00-0400 Systolic blood pressure 100 mm[Hg] Matheus Fajardo MD Work Phone: [facility] 01-18-2025 10:28-0400 Body mass index (BMI) [Ratio] 23.96 kg/m2 Loraine Moomaw CONTACT WORKER LITHOGRAPHY.OUTSIDE SALES ACCOUNT REPRESENTATIVE Work Phone: [facility] 01-18-2025 10:28-0400 Body temperature 99.3 [degF] Loraine Moomaw CONTACT WORKER LITHOGRAPHY.OUTSIDE SALES ACCOUNT REPRESENTATIVE Work Phone: [facility] 01-18-2025 10:28-0400 Body weight 69.4 kg Loraine Moomaw CONTACT WORKER LITHOGRAPHY.OUTSIDE SALES ACCOUNT REPRESENTATIVE Work Phone: [facility] 01-18-2025 10:28-0400 Diastolic blood pressure 68 mm[Hg] Loraine Moomaw CONTACT WORKER LITHOGRAPHY.OUTSIDE SALES ACCOUNT REPRESENTATIVE Work Phone: [facility] 01-18-2025 10:28-0400 Heart rate 70 /min Loraine Moomaw CONTACT WORKER LITHOGRAPHY.OUTSIDE SALES ACCOUNT REPRESENTATIVE Work Phone: [facility] 01-18-2025 10:28-0400 Respiratory rate 18 /min Loraine Moomaw CONTACT WORKER LITHOGRAPHY.OUTSIDE SALES ACCOUNT REPRESENTATIVE Work Phone: [facility] 01-18-2025 10:28-0400 SaO2% (BldA) [Mass fraction] 97 % Loraine Moomaw CONTACT WORKER LITHOGRAPHY.OUTSIDE SALES ACCOUNT REPRESENTATIVE Work Phone: [facility] 01-18-2025 10:28-0400 Systolic blood pressure 120 mm[Hg] Loraine Moomaw CONTACT WORKER LITHOGRAPHY.OUTSIDE SALES ACCOUNT REPRESENTATIVE Work Phone: [facility] 12-02-2024 15:47-0500 Body temperature 98 [degF] Dr. Matheus Fajardo MD Work Phone: [facility] 12-02-2024 15:47-0500 Body weight 69.[address] Matheus Fajardo MD Work Phone: [facility] 12-02-2024 15:47-0500 Diastolic blood pressure 66 mm[Hg] Dr. Matheus Fajardo MD Work Phone: [facility] 12-02-2024 15:47-0500 Heart rate 61 /min Dr. Matheus Fajardo MD Work Phone: [facility] 12-02-2024 15:47-0500 Respiratory rate 16 /min Dr. Matheus Fajardo MD Work Phone: [facility] 12-02-2024 15:47-0500 SaO2% (BldA) [Mass fraction] 95 % Dr. Matheus Fajardo MD Work Phone: [facility] 12-02-2024 15:47-0500 Systolic blood pressure 121 mm[Hg] Dr. Matheus Fajardo MD Work Phone: [facility] 11-14-2024 14:15-0500 Body mass index (BMI) [Ratio] 23.89 kg/m2 Matheus Fajardo MD Work Phone: [facility] 11-14-2024 14:15-0500 Body temperature 97.9 [degF] Matheus Fajardo MD Work Phone: [facility] 11-14-2024 14:15-0500 Body weight 69.2 kg Matheus Fajardo MD Work Phone: [facility] 11-14-2024 14:15-0500 Diastolic blood pressure 46 mm[Hg] Matheus Fajardo MD Work Phone: [facility] 11-14-2024 14:15-0500 Heart rate 64 /min Matheus Fajardo MD Work Phone: [facility] 11-14-2024 14:15-0500 Respiratory rate 20 /min Matheus Fajardo MD Work Phone: [facility] 11-14-2024 14:15-0500 Systolic blood pressure 86 mm[Hg] Matheus Fajardo MD Work Phone: [facility] 08-24-2024 10:25-0500 Body mass index (BMI) [Ratio] 24.58 kg/m2 Tram Santana MD Work Phone: [facility] 08-24-2024 10:25-0500 Body weight 71.2 kg Tram Santana MD Work Phone: [facility] 08-24-2024 10:25-0500 Diastolic blood pressure 72 mm[Hg] Tram Santana MD Work Phone: [facility] 08-24-2024 10:25-0500 Heart rate 64 /min Tram Santana MD Work Phone: [facility] 08-24-2024 10:25-0500 SaO2% (BldA) [Mass fraction] 96 % Tram Santana MD Work Phone: [facility] 08-24-2024 10:25-0500 Systolic blood pressure 146 mm[Hg] Tram Santana MD Work Phone: [facility] 08-22-2024 15:08-0500 Diastolic blood pressure 71 mm[Hg] Matheus Fajardo MD Work Phone: [facility] 08-22-2024 15:08-0500 Heart rate 67 /min Matheus Fajardo MD Work Phone: [facility] 08-22-2024 15:08-0500 Systolic blood pressure 123 mm[Hg] Matheus Fajardo MD Work Phone: [facility] 08-22-2024 14:58-0500 Body mass index (BMI) [Ratio] 24.58 kg/m2 Matheus Fajardo MD Work Phone: [facility] 08-22-2024 14:58-0500 Body temperature 97.81 [degF] Matheus Fajardo MD Work Phone: [facility] 08-22-2024 14:58-0500 Body weight 71.2 kg Matheus Fajardo MD Work Phone: [facility] 05-18-2024 14:52-0400 Body height 170.2 cm Elvira Gunter DO Work Phone: [facility] 05-18-2024 14:52-0400 Body mass index (BMI) [Ratio] 25.38 kg/m2 Elvira Gunter DO Work Phone: [facility] 05-18-2024 14:52-0400 Body weight 73.5 kg Elvira Gunter DO Work Phone: [facility] 05-18-2024 14:52-0400 Diastolic blood pressure 58 mm[Hg] Elvira Gunter DO Work Phone: [facility] 05-18-2024 14:52-0400 Heart rate 62 /min Elvira Gunter DO Work Phone: [facility] 05-18-2024 14:52-0400 SaO2% (BldA) [Mass fraction] 95 % Elvira Gunter DO Work Phone: [facility] 05-18-2024 14:52-0400 Systolic blood pressure 112 mm[Hg] Elvira Gunter DO Work Phone: [facility] 04-27-2024 13:55-0400 Body height 167.6 cm Tram Santana MD Work Phone: [facility] 04-27-2024 13:55-0400 Body mass index (BMI) [Ratio] 27.15 kg/m2 Tram Santana MD Work Phone: [facility] 04-27-2024 13:55-0400 Body weight 76.3 kg Tram Santana MD Work Phone: [facility] 04-27-2024 13:55-0400 Diastolic blood pressure 69 mm[Hg] Tram Santana MD Work Phone: [facility] 04-27-2024 13:55-0400 Heart rate 63 /min Tram Santana MD Work Phone: [facility] 04-27-2024 13:55-0400 SaO2% (BldA) [Mass fraction] 96 % Tram Santana MD Work Phone: [facility] 04-27-2024 13:55-0400 Systolic blood pressure 117 mm[Hg] Tram Santana MD Work Phone: [facility] 03-09-2024 13:05-0400 Body height 167.6 cm Marisa Pito CONTACT WORKER LITHOGRAPHY.OUTSIDE SALES ACCOUNT REPRESENTATIVE Work Phone: [facility] 03-09-2024 13:05-0400 Body mass index (BMI) [Ratio] 26.76 kg/m2 Marisa Pito CONTACT WORKER LITHOGRAPHY.OUTSIDE SALES ACCOUNT REPRESENTATIVE Work Phone: [facility] 03-09-2024 13:05-0400 Body temperature 97.59 [degF] Marisa Pito CONTACT WORKER LITHOGRAPHY.OUTSIDE SALES ACCOUNT REPRESENTATIVE Work Phone: [facility] 03-09-2024 13:05-0400 Body weight 75.21 kg Marisa Pito CONTACT WORKER LITHOGRAPHY.OUTSIDE SALES ACCOUNT REPRESENTATIVE Work Phone: [facility] 03-09-2024 13:05-0400 Diastolic blood pressure 76 mm[Hg] Marisa Pito CONTACT WORKER LITHOGRAPHY.OUTSIDE SALES ACCOUNT REPRESENTATIVE Work Phone: [facility] 03-09-2024 13:05-0400 Heart rate 72 /min Marisa Pito CONTACT WORKER LITHOGRAPHY.OUTSIDE SALES ACCOUNT REPRESENTATIVE Work Phone: [facility] 03-09-2024 13:05-0400 SaO2% (BldA) [Mass fraction] 95 % Marisa Pito CONTACT WORKER LITHOGRAPHY.OUTSIDE SALES ACCOUNT REPRESENTATIVE Work Phone: [facility] 03-09-2024 13:05-0400 Systolic blood pressure 122 mm[Hg] Marisa Pito CONTACT WORKER LITHOGRAPHY.OUTSIDE SALES ACCOUNT REPRESENTATIVE Work Phone: [facility] 02-18-2024 09:41-0400 Body height 167.6 cm Matheus Fajardo MD Work Phone: [facility] 02-18-2024 09:41-0400 Body mass index (BMI) [Ratio] 26.31 kg/m2 Matheus Fajardo MD Work Phone: [facility] 02-18-2024 09:41-0400 Body temperature 98.1 [degF] Matheus Fajardo MD Work Phone: [facility] 02-18-2024 09:41-0400 Body weight 73.94 kg Matheus Fajardo MD Work Phone: [facility] 02-18-2024 09:41-0400 Diastolic blood pressure 72 mm[Hg] Matheus Fajardo MD Work Phone: [facility] 02-18-2024 09:41-0400 Heart rate 60 /min Matheus Fajardo MD Work Phone: [facility] 02-18-2024 09:41-0400 Respiratory rate 20 /min Matheus Fajardo MD Work Phone: [facility] 02-18-2024 09:41-0400 Systolic blood pressure 120 mm[Hg] Matheus Fajardo MD Work Phone: [facility] 02-03-2023 10:02-0400 Body temperature 97.81 [degF] Oswaldo Woods APRN.OUTSIDE SALES ACCOUNT REPRESENTATIVE Work Phone: [facility] 02-03-2023 10:02-0400 Body weight 79.29 kg Oswaldo Woods CONTACT WORKER LITHOGRAPHY.OUTSIDE SALES ACCOUNT REPRESENTATIVE Work Phone: [facility] 02-03-2023 10:02-0400 Diastolic blood pressure 60 mm[Hg] Oswaldo Woods CONTACT WORKER LITHOGRAPHY.OUTSIDE SALES ACCOUNT REPRESENTATIVE Work Phone: [facility] 02-03-2023 10:02-0400 Heart rate 80 /min Oswaldo Woods CONTACT WORKER LITHOGRAPHY.OUTSIDE SALES ACCOUNT REPRESENTATIVE Work Phone: [facility] 02-03-2023 10:02-0400 Respiratory rate 18 /min Oswaldo Woods CONTACT WORKER LITHOGRAPHY.OUTSIDE SALES ACCOUNT REPRESENTATIVE Work Phone: [facility] 02-03-2023 10:02-0400 SaO2% (BldA) [Mass fraction] 95 % Oswaldo Woods CONTACT WORKER LITHOGRAPHY.OUTSIDE SALES ACCOUNT REPRESENTATIVE Work Phone: [facility] 02-03-2023 10:02-0400 Systolic blood pressure 122 mm[Hg] Oswaldo Woods APRN.OUTSIDE SALES ACCOUNT REPRESENTATIVE Work Phone: [facility] 09-05-2022 15:25-0500 Body height 165.1 cm Matheus Fajardo MD Work Phone: [facility] 09-05-2022 15:25-0500 Body temperature 96.91 [degF] Matheus Fajardo MD Work Phone: [facility] 09-05-2022 15:25-0500 Body weight 75.75 kg Matheus Fajardo MD Work Phone: [facility] 09-05-2022 15:25-0500 Diastolic blood pressure 56 mm[Hg] Matheus Fajardo MD Work Phone: [facility] 09-05-2022 15:25-0500 Heart rate 75 /min Mathesu Fajardo MD Work Phone: [facility] 09-05-2022 15:25-0500 Respiratory rate 14 /min Matheus Fajardo MD Work Phone: [facility] 09-05-2022 15:25-0500 SaO2% (BldA) [Mass fraction] 93 % Matheus Fajardo MD Work Phone: [facility] 09-05-2022 15:25-0500 Systolic blood pressure 116 mm[Hg] Matheus Fajardo MD Work Phone: [facility] 06-26-2022 15:31-0400 Body temperature 97.7 [degF] Matheus Fajardo MD Work Phone: [facility] 06-26-2022 15:31-0400 Body weight 75.66 kg Matheus Fajardo MD Work Phone: [facility] 06-26-2022 15:31-0400 Diastolic blood pressure 66 mm[Hg] Matheus Fajardo MD Work Phone: [facility] 06-26-2022 15:31-0400 Heart rate 60 /min Matheus Fajardo MD Work Phone: [facility] 06-26-2022 15:31-0400 Respiratory rate 16 /min Matheus Fajardo MD Work Phone: [facility] 06-26-2022 15:31-0400 Systolic blood pressure 112 mm[Hg] Matheus Fajardo MD Work Phone: [facility] 03-27-2022 10:29-0400 Body height 167.[address] Matheus Fajardo Work Phone: [facility] Work Phone: 03-27-2022 10:29-0400 Body mass index (BMI) [Ratio] 25.7 kg/m2 Dr. Matheus Fajardo Work Phone: [facility] Work Phone: 03-27-2022 10:29-0400 Body weight 72.[address] Matheus Fajardo Work Phone: [facility] Work Phone: 03-27-2022 10:29-0400 Diastolic blood pressure 74 mm[Hg] Dr. Matheus Fajardo Work Phone: [facility] Work Phone: 03-27-2022 10:29-0400 Heart rate 60 /min Dr. Matheus Fajardo Work Phone: [facility] Work Phone: 03-27-2022 10:29-0400 Respiratory rate 18 /min Dr. Matheus Fajardo Work Phone: [facility] Work Phone: 03-27-2022 10:29-0400 Systolic blood pressure 132 mm[Hg] Dr. Matheus Fajardo Work Phone: [facility] Work Phone: 03-24-2022 13:33-0400 Body temperature 97.5 [degF] Matheus Fajardo MD Work Phone: [facility] 03-24-2022 13:33-0400 Body weight 71.67 kg Matheus Fajardo MD Work Phone: [facility] 03-24-2022 13:33-0400 Diastolic blood pressure 62 mm[Hg] Matheus Fajardo MD Work Phone: [facility] 03-24-2022 13:33-0400 Heart rate 56 /min Matheus Fajardo MD Work Phone: [facility] 03-24-2022 13:33-0400 Respiratory rate 16 /min Matheus Fajardo MD Work Phone: [facility] 03-24-2022 13:33-0400 Systolic blood pressure 110 mm[Hg] Matheus Fajardo MD Work Phone: [facility] Encounters Encounter Date Encounter Type Care Provider Facility Start: 05-23-2025 End: 05-23-2025 Telephone encounter Matheus Fajardo MD Work Phone: [facility] Comment on above: requesting medicatio n that is Start: 04-18-2025 End: 04-18-2025 Refill Matheus Fajardo MD Work Phone: [facility] [place] Comment on above: Refill Request Start: 04-04-2025 End: 04-04-2025 Patient encounter procedure Maribell Hill MD Work Phone: Cardiology Comment on above: Coronary artery dise ase due to lipid rich plaque (Primary Dx); PVD (peripheral vascular disease); Mitral regurgitation and aortic stenosis; Bilateral carotid artery stenosis; Abdominal aortic aneurysm (AAA) without rupture, unspecified part; Smoker Start: 04-04-2025 End: 04-04-2025 ambulatory MARIBELL SERGIO Facility:[facility] Start: 04-04-2025 End: 04-05-2025 Telephone encounter Maribell Hill MD Work Phone: Cardiology Start: 03-26-2025 ambulatory [facility] Facility: [facility] Start: 03-21-2025 End: 03-21-2025 Patient encounter procedure Susan Glass SOFTWARE DEVELOPMENT ADVISOR-C -[facility] Work Phone: Start: 03-21-2025 End: 03-21-[address] Matheus Fajardo MD Work Phone: [facility] Work Phone: Start: 03-14-2025 End: 03-14-2025 Subsequent hospital visit by physician [facility] Work Phone: Radiology Comment on above: Contusion of knee, u nspecified laterality, initial encounter [S80.00XA] Start: 03-14-2025 End: 03-14-2025 Patient encounter procedure Theaimelda Cordoba APRN.OUTSIDE SALES ACCOUNT REPRESENTATIVE Work Phone: [facility] Comment on above: Fall, initial encoun ter (Primary Dx); Contusion of knee, unspecified laterality, initial encounter; Contusion of right hand, initial encounter; Contusion of dorsum of right hand; Skin tear of right hand without complication, initial encounter Start: 03-14-2025 End: 03-14-2025 ambulatory MATHEUS FAJARDO Facility:[facility] Start: 03-04-2025 End: 03-07-2025 ambulatory Tram Santana MD Work Phone: Neurology Comment on above: Seizure meds Start: 03-02-2025 End: 03-02-2025 Follow-up encounter Matheus Fajardo MD Work Phone: [facility] Start: 03-02-2025 End: 03-02-2025 ambulatory TRAM SANTANA Facility:[id number] Start: 02-27-2025 End: 02-27-2025 Patient encounter procedure Tram Santana MD Work Phone: Neurology Comment on above: Moderate dementia wi thout behavioral disturbance, psychotic disturbance, mood disturbance, or anxiety, unspecified dementia type (HCC) (Primary Dx); Sensory ataxia; Other polyneuropathy; Seizure-like activity (HCC); Parkinsonism, unspecified Parkinsonism type (HCC) Start: 02-27-2025 End: 02-27-2025 ambulatory TRAM SANTANA Facility:[facility] Start: 02-23-2025 End: 02-23-2025 ambulatory MATHEUS FAJARDO Facility:[facility] Start: 02-23-2025 End: 02-23-2025 Patient encounter procedure Matheus Fajardo MD Work Phone: [facility] Comment on above: Medicare annual well ness visit, subsequent (Primary Dx); Polycythemia; Mixed hyperlipidemia; Nonrheumatic aortic valve stenosis; 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 (HCC); JL on CPAP; Osteoporosis, post-menopausal; 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); Urgency incontinence Start: 01-21-2025 End: 01-21-2025 ambulatory ANDRIA BOSTON Facility:[facility] Start: 01-18-2025 End: 01-18-2025 Telephone encounter Loraine Swift APRN.CNP Work Phone: [facility] Comment on above: Results Start: 01-18-2025 End: 01-18-2025 Office outpatient visit 25 minutes Loraine Swift APRN.CNP Work Phone: [facility] Comment on above: Acute cough (Primary Dx) Start: 01-18-2025 End: 01-18-2025 ambulatory MATHEUS FAJARDO Facility:[facility] Start: 12-02-2024 End: 12-02-2024 Patient encounter procedure Laura ROJAS -[facility] Work Phone: Start: 12-02-2024 End: 12-02-2024 ambulatory Matheus Fajardo Facility:[facility] Start: 11-20-2024 End: 11-20-2024 Emergency department patient visit Matheus Fajardo Facility:[facility] Start: 11-14-2024 End: 11-14-2024 ambulatory MATHEUS FAJARDO Facility:[facility] Start: 11-14-2024 End: 11-14-2024 Patient encounter procedure Matheus Fajardo MD Work Phone: [facility] Comment on above: TIA (transient ische galo attack) (Primary Dx); Atherosclerosis of [place] coronary artery of [place] heart without angina pectoris; Meningioma (HCC); 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 behavioral disturbance, psychotic disturbance, mood disturbance, or anxiety, unspecified dementia type (HCC); Bilateral carotid artery stenosis; Influenza Start: 11-11-2024 ambulatory Arcelia Ambrocio cility:[facility] Start: 11-10-2024 End: 11-11-2024 ambulatory Lennie Jamesno Facility:[facility] Start: 10-31-2024 End: 10-31-2024 Refill Matheus Fajardo MD Work Phone: [facility] [place] Comment on above: Refill Request Start: 10-04-2024 End: 10-04-2024 E-mail encounter from caregiver Elvria Burnham Radha DO Work Phone: Cardiology Start: 10-04-2024 End: 10-04-2024 Patient encounter procedure Elvira Tej Gunter DO Work Phone: Cardiology Comment on above: Appointment Start: 09-19-2024 End: 09-20-2024 Refill Matheus Fajardo MD Work Phone: [facility] [place] Comment on above: Refill Request Start: 09-13-2024 End: 09-13-2024 Patient encounter procedure Hyacinth Son PT, [facility] Comment on above: Moderate dementia wi thout behavioral disturbance, psychotic disturbance, mood disturbance, or anxiety, unspecified dementia type (HCC); 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 (HCC); Gait abnormality Start: 09-13-2024 End: 09-13-2024 ambulatory Hyacinth Son PT [facility] Start: 08-24-2024 End: 08-24-2024 ambulatory TRAM SANTANA Facility:[facility] Start: 08-24-2024 End: 08-24-2024 Patient encounter procedure Tram Santana MD Work Phone: Neurology Comment on above: Moderate dementia wi thout behavioral disturbance, psychotic disturbance, mood disturbance, or anxiety, unspecified dementia type (HCC) (Primary Dx); Parkinsonism, unspecified Parkinsonism type (HCC); Sensory ataxia; Other polyneuropathy; B12 deficiency Start: 08-22-2024 End: 08-22-2024 ambulatory MATHEUS FAJARDO Facility:[facility] Start: 08-22-2024 End: 08-22-2024 Office outpatient visit 25 minutes Matheus Fajardo MD Work Phone: [facility] [place] Comment on above: 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) (Primary Dx); Nonrheumatic aortic valve stenosis; Atherosclerosis of [place] coronary artery of [place] heart without angina pectoris; 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 behavioral disturbance, psychotic disturbance, mood disturbance, or anxiety, unspecified dementia type (HCC); 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 (HCC); Gait abnormality; Polycythemia Start: 08-02-2024 End: 08-03-2024 Refill Matheus Fajardo MD Work Phone: [facility] Comment on above: Refill Request Start: 07-20-2024 End: 07-20-2024 Refill Matheus Fajardo MD Work Phone: [facility] [place] Comment on above: Refill Request Start: 06-02-2024 End: 06-02-2024 ambulatory ELVIRA TEJ GUNTER Facility:[facility] Start: 05-18-2024 End: 05-18-2024 Patient encounter procedure Elvira Gunter DO Work Phone: Cardiology Comment on above: CAD S/P percutaneous coronary angioplasty (Primary Dx); Primary hypertension; Mixed hyperlipidemia; JL on CPAP; PAD (peripheral artery disease) (HCC); Nonrheumatic aortic valve stenosis; S/P right coronary artery (RCA) stent placement; DNR (do not resuscitate) Start: 05-10-2024 Telephone encounter Matheus block MD Work Phone: Internal Medicine [place] Comment on above: Results Start: 05-05-2024 End: 05-05-2024 Subsequent hospital visit by physician [facility] Work Phone: Radiology Comment on above: Osteoporosis, 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] Start: 05-02-2024 Telephone encounter Tram duncan MD Work Phone: Neurology Start: 04-30-2024 ambulatory Cokoie morgan CONTACT WORKER LITHOGRAPHY.OUTSIDE SALES ACCOUNT REPRESENTATIVE Work Phone: Internal Medicine [place] Comment on above: Replace Oxybutynin 1 0 mg. Start: 04-27-2024 End: 04-27-2024 Patient encounter procedure Tram Santana MD Work Phone: Neurology Comment on above: Moderate dementia wi thout behavioral disturbance, psychotic disturbance, mood disturbance, or anxiety, unspecified dementia type (HCC) (Primary Dx); 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 (HCC); Sensory ataxia; Other polyneuropathy Start: 04-11-2024 Refill Matheus parry MD Work Phone: Internal [facility] [place] Comment on above: Refill Request Start: 03-09-2024 End: 03-09-2024 Patient encounter procedure Marisahitesh Sheldon CONTACT WORKER LITHOGRAPHY.OUTSIDE SALES ACCOUNT REPRESENTATIVE Work Phone: General Surgery Comment on above: Benign neoplasm of c olon, unspecified part of colon Start: 02-18-2024 Telephone encounter Matheus block MD Work Phone: Internal Medicine [place] Start: 02-18-2024 End: 02-18-2024 Patient encounter procedure Matheus Fajardo MD Work Phone: Internal Medicine [place] Comment on above: Medicare annual well ness visit, subsequent (Primary Dx); Mixed hyperlipidemia; Vitamin D deficiency; Polycythemia; 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); Osteoporosis, post-menopausal; Tremor, essential; Cognitive decline; Atherosclerosis of [place] coronary artery of [place] heart without angina pectoris; Benign neoplasm of colon, unspecified part of colon Start: 12-30-2023 Refill Matheus parry MD Work Phone: Internal Medicine [place] Comment on above: Refill Request Start: 08-05-2023 Get Medical Advice Cookie guerra APRN.OUTSIDE SALES ACCOUNT REPRESENTATIVE Work Phone: Internal Medicine [place] Comment on above: Prilosec refill Start: 06-22-2023 Refill Matheus parry MD Work Phone: Internal Medicine [place] Comment on above: Refill Request Start: 03-30-2023 Refill Matheus parry MD Work Phone: Internal Medicine [place] Comment on above: Refill Request Start: 03-24-2023 Refill Matheus parry MD Work Phone: Internal Medicine [place] Comment on above: Refill Request Start: 03-02-2023 Refill Matheus parry MD Work Phone: Internal Medicine [place] Comment on above: Refill Request Start: 02-03-2023 Refill Matheus parry MD Work Phone: [facility] Start: 02-03-2023 End: 02-03-2023 Office outpatient visit 15 minutes Oswaldo Woods APRN.CNP Work Phone: [facility] Comment on above: Cellulitis of left e ar (Primary Dx) Start: 01-05-2023 Refill Matheus parry MD Work Phone: Internal Medicine [place] Comment on above: Refill Request Start: 12-01-2022 Refill Matheus parry MD Work Phone: Internal Medicine [place] Comment on above: Refill Request Start: 09-30-2022 Refill Matheus parry MD Work Phone: [facility] Comment on above: Refill Request; Refi ll Request Start: 09-08-2022 Telephone encounter Matheus block MD Work Phone: Internal Medicine [place] Comment on above: Orders Start: 09-06-2022 Refill Matheus parry MD Work Phone: [facility] [place] Comment on above: Refill Request Start: 09-05-2022 End: 09-05-2022 Patient encounter procedure Matheus Fajardo MD Work Phone: Internal Medicine [place] Comment on above: Urgency incontinence (Primary Dx); Anterior cervical lymphadenopathy; Mixed incontinence; Polycythemia; 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) Start: 08-25-2022 Telephone encounter Mathesu block MD Work Phone: Internal Medicine [place] Comment on above: Patient Update Start: 06-26-2022 End: 06-26-2022 Patient encounter procedure Matheus Fajardo MD Work Phone: Internal Medicine [place] Comment on above: Anterior cervical ly mphadenopathy (Primary Dx); Mixed hyperlipidemia; Need for influenza vaccination; Gait abnormality; 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 Emily Fajardo Work Phone: [facility] Start: 04-22-2022 End: 04-22-[address] Matheus Fajardo Work Phone: [facility] Start: 03-27-2022 End: 03-27-[address] Matheus Fajardo Work Phone: [facility] Start: 03-24-2022 End: 03-24-2022 Patient encounter procedure Matheus Fajardo MD Work Phone: Internal [facility] Comment on above: Left leg pain (Prima ry Dx); Left leg weakness; Gait abnormality Start: 02-10-2022 Refill Matheus parry MD Work Phone: Internal Medicine [place] Comment on above: Refill Request Start: 01-25-2022 ambulatory Kimberly aaron CONTACT WORKER LITHOGRAPHY.OUTSIDE SALES ACCOUNT REPRESENTATIVE Work Phone: Neurology Comment on above: Gabapentin Dosing - Kami Herron Start: 01-09-2022 Refill Matheus parry MD Work Phone: Family [facility] Comment on above: Refill Request Start: 01-07-2022 End: 01-07-2022 ambulatory Kimberly Rothman CONTACT WORKER LITHOGRAPHY.OUTSIDE SALES ACCOUNT REPRESENTATIVE Work Phone: Neurology Comment on above: Left leg pain (Prima ry Dx); Recurrent falls; Left leg weakness; 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) Start: 01-07-2022 End: 01-07-2022 Telemedicine consultation with patient Kimberly Rothman CONTACT WORKER LITHOGRAPHY.OUTSIDE SALES ACCOUNT REPRESENTATIVE Work Phone: [place] Start: 01-02-2022 Telephone encounter Manohar Millard MD Work Phone: Neurology Comment on above: EMG results Start: 12-27-2021 Telephone encounter Manohar Millard MD Work Phone: Neurology Comment on above: Appointment Start: 12-27-2021 End: 12-27-2021 ambulatory Emg 850) Neurology Comment on above: EMG Start: 12-27-2021 End: 12-27-2021 Patient encounter procedure Emg 2 Neur Chidi (Max Weight: 850) CHIDI Start: 12-18-2021 Telephone encounter Manohar Millard MD Work Phone: Neurology Comment on above: Clarifying date Start: 03-16-2018 Ambulatory ANDRZEJ PRATER Facility :[facility] Start: 09-15-2017 End: 09-15-2017 Ambulatory ANDRZEJ Paramjit JOSI [facility] Procedures Date Procedure Procedure Detail Performing Clinician Start: 03-14-2025 Radex hand minimum 3 views Thea Cordoba CONTACT WORKER LITHOGRAPHY.OUTSIDE SALES ACCOUNT REPRESENTATIVE Work Phone: Start: 01-18-2025 COVID & INFLUENZA A/ B & RSV PCR, ROUTINE Loraine Moomaw CONTACT WORKER LITHOGRAPHY.OUTSIDE SALES ACCOUNT REPRESENTATIVE Work Phone: Start: 05-18-2024 Ecg routine ecg w/le ast 12 lds i&r only [facility] Provider Start: 05-18-2024 History of placement of stent for coronary artery disease S/P right coronary artery (RCA) stent placement Elvira Gunter DO Work Phone: Start: 02-18-2024 Adult depression screening assessment Tram Santana MD Work Phone: Start: 06-26-2022 [employer] COVI D-19 BIVALENT BOOSTER VACCINE, AGE 12+ YR Matheus Fajardo MD Work Phone: Start: 06-26-2022 INFLUENZA SEASONAL QUADRIVALENT HIGH DOSE AGE 65+ Matheus Fajardo MD Work Phone: Start: 12-27-2021 Nerve conduction jamal dies 5-6 studies Manohar Millard MD Work Phone: Plan of Treatment Date Care Activity Detail Author Start: 05-05-2026 Screening for osteoporosis Bone Density Screening [facility] Start: 02-23-2026 Covid-19 Vaccine ( season) Covid-19 Vaccine () [facility] Comment on above: Postponed from 01/25 (Declined at this time) Start: 02-23-2026 Hepatitis B surface antibody level LDL Cholesterol [facility] Start: 08-29-2025 End: 08-29-2025 Patient encounter procedure 08/29/2025 8:30 AM EST Office Visit Neurology [address] [place] [address] Dali Regalado PA-C [address] [place], [place] [id number] 6 month follow up Neurology Comment on above: 6 month follow up Start: 08-26-2025 Hemoglobin A1c measurement HbA1C [facility] Start: 08-22-2025 Diabetic foot examination Diabetic F oot Exam [facility] Start: 08-22-2025 Hepatitis B screening Urine Al bumin:Creatinine Ratio [facility] Start: 08-22-2025 End: 08-22-2025 Patient encounter procedure 08/22/2025 11:40 AM EST Office Visit Internal Medicine [place] [address] [place], [place] [id number] Matheus Fajardo MD [address] [place], [place] [id number] 6 month follow up Internal [facility] [place] Comment on above: 6 month follow up Start: 06-20-2025 End: 04-04-2026 Echocardiography ECHO Cardiology Routine Aortic valve stenosis, etiology of cardiac valve disease unspecified Expected: 06/20/2025, Expires: 04/04/2026 [facility] Work Phone: Comment on above: Expected: 06/20/2025 , Expires: 04/04/2026 Start: 05-29-2025 Influenza vaccination Influenza Vacc ine (#1) [facility] Start: 04-04-2025 End: 04-04-2025 Patient encounter procedure 04/04/2025 2:40 PM EDT Office Visit Cardiology [address] [address] Maribell Hill MD [address] [place] [id number] follow up Cardiology Comment on above: follow up Start: 03-02-2025 End: 03-02-2025 Patient encounter procedure 03/02/2025 11:00 AM EDT Office Visit Neurology [address] [address] 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 behavioral disturbance, psychotic disturbance, mood disturbance, or anxiety, unspecified dementia type (HCC) [F03.B0] Neurology Comment on above: Moderate dementia wi thout behavioral disturbance, psychotic disturbance, mood disturbance, or anxiety, unspecified dementia type (HCC) [F03.B0] Start: 02-27-2025 End: 02-27-2025 Patient encounter procedure Neurology Comment on above: 6m follow up Start: 02-23-2025 End: 05-25-2025 Comprehensive metabolic 2000 panel - Serum or Plasma [facility] Work Phone: Comment on above: Expected: 02/23/2025 , Expires: 05/25/2025 Start: 02-23-2025 End: 05-25-2025 Hemoglobin A1c in Blood [facility] Comment on above: Expected: 02/23/2025 , Expires: 05/25/2025 Start: 02-23-2025 End: 05-25-2025 LIPID PANEL, NONFASTING [facility] Comment on above: Expected: 02/23/2025 , Expires: 05/25/2025 Start: 02-23-2025 End: 02-23-2025 Patient encounter procedure 02/23/2025 9:20 AM EDT Office Visit Internal Medicine [place] [address] [place] [address] Matheus Fajardo MD [address] [place] [address] annual/ 6 month follow up Internal Medicine [place] Comment on above: annual/ 6 month foll ow up Start: 02-19-2025 Hemoglobin A1c measurement HbA1C [facility] Start: 02-17-2025 Depression Screening Depression Scre ening [facility] Start: 02-17-2025 Hepatitis B surface antibody level LDL Cholesterol [facility] Start: 01-25-2025 Covid-19 Vaccine () Covid-19 Vaccine () [facility] Start: 12-28-2024 Glaucoma screening Dilated Retinal E xam [facility] Start: 12-16-2024 End: 12-16-2024 Patient encounter procedure 12/16/2024 2:00 PM EDT Office Visit Cardiology [address] [address] Elvira Gunter DO [address] [place] [address] 7 month follow up Cardiology Comment on above: 7 month follow up Start: 09-28-2024 Advance Directive Discussion Advance Directive Discussion [facility] Start: 09-13-2024 End: 09-13-2024 Patient encounter procedure 09/13/2024 3:00 PM EST OT/PT/Speech Visit [facility] [address] [place] [address] Hyacinth Son, PT, DPT [address] [place] [address] 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 behavioral disturbance, psychotic disturbance, mood disturbance, or anxiety, unspecified dementia type (HCC) [F03.B0]; 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 (HCC) [G20.A1]; Gait abnormality [R26.9] [facility] Comment on above: Moderate dementia wi thout behavioral disturbance, psychotic disturbance, mood disturbance, or anxiety, unspecified dementia type (HCC) [F03.B0]; 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 (HCC) [G20.A1]; Gait abnormality [R26.9] Start: 08-24-2024 End: 08-24-2024 Patient encounter procedure 08/24/2024 10:30 AM EST Office Visit Neurology [address] [place] [phone] Tram Santana MD [address] [place] [address] Four month follow up Neurology Comment on above: Four month follow up Start: 08-22-2024 End: 08-22-2024 Patient encounter procedure Internal Medicine [place] Comment on above: 6 month follow up 6 month follow up/de clined colonoscopy recall Start: 08-22-2024 End: 11-21-2024 Basic metabolic 2000 panel - Serum or Plasma [facility] Comment on above: Expected: 08/22/2024 , Expires: 11/21/2024 Start: 08-22-2024 End: 11-21-2024 CBC panel - Blood by Automated count [facility] Work Phone: Comment on above: Expected: 08/22/2024 , Expires: 11/21/2024 Start: 08-22-2024 End: 11-21-2024 Cobalamin (Vitamin B12) [Mass/volume] in Serum or Plasma [facility] Comment on above: Expected: 08/22/2024 , Expires: 11/21/2024 Start: 08-22-2024 End: 11-21-2024 Hemoglobin A1c in Blood [facility] Comment on above: Expected: 08/22/2024 , Expires: 11/21/2024 Start: 08-22-2024 End: 11-21-2024 Methylmalonate [Moles/volume] in Serum or Plasma [facility] Comment on above: Expected: 08/22/2024 , Expires: 11/21/2024 Start: 08-22-2024 End: 11-21-2024 Microalbumin/Creatinine [Mass Ratio] in Urine [facility] Comment on above: Expected: 08/22/2024 , Expires: 11/21/2024 Start: 08-22-2024 End: 11-21-2024 Thyrotropin [Units/volume] in Serum or Plasma [facility] Comment on above: Expected: 08/22/2024 , Expires: 11/21/2024 Start: 08-22-2024 End: 11-21-2024 Thyroxine (T4) free [Mass/volume] in Serum or Plasma [facility] Comment on above: Expected: 08/22/2024 , Expires: 11/21/2024 Start: 08-20-2024 Hemoglobin A1c measurement HbA1C [facility] Start: 07-07-2024 Covid-19 Vaccine () Covid-19 Vaccine () [facility] Comment on above: Postponed from 05/29 (Declined at this time) Start: 07-07-2024 Hepatitis B Vaccine (1 of 3 - Risk 3-dose series) Hepatitis B Vaccine (1 of 3 - Risk 3-dose series) [facility] Comment on above: Postponed from 01/12 (Declined at this time) Start: 07-03-2024 Hepatitis B screening Urine Al bumin:Creatinine Ratio [facility] Start: 07-03-2024 Hepatitis B surface antibody level LDL Cholesterol [facility] Start: 06-23-2024 3 comp foot exam completed Diabetic Foot Exam [facility] Start: 06-23-2024 Diabetic foot examination Diabetic F oot Exam [facility] Start: 05-29-2024 Covid-19 Vaccine ( season) Covid-19 Vaccine () [facility] Start: 05-29-2024 Influenza vaccination Influenza Vacc ine (#1) [facility] Start: 05-18-2024 End: 05-18-2024 Patient encounter procedure Cardiology Comment on above: Atherosclerosis of n ative coronary artery of [place] heart without angina pectoris [I25.10] Start: 05-05-2024 End: 05-05-2024 Patient encounter procedure 05/05/2024 1:40 PM EDT Appointment Radiology [address] [place] [address] Dx: Osteoporosis, 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] Radiology Comment on above: Dx: Osteoporosis, po st-menopausal [M81.0] Start: 04-27-2024 End: 07-27-2024 Cobalamin (Vitamin B12) [Mass/volume] in Serum or Plasma VITAMIN B12 Lab Routine 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 behavioral disturbance, psychotic disturbance, mood disturbance, or anxiety, unspecified dementia type (HCC) Other polyneuropathy Expected: 04/27/2024, Expires: 07/27/2024 [facility] Comment on above: Expected: 04/27/2024 , Expires: 07/27/2024 Start: 04-27-2024 End: 07-27-2024 COPPER BLOOD COPPER BLOOD Lab Routine Other polyneuropathy Expected: 04/27/2024, Expires: 07/27/2024 [facility] Comment on above: Expected: 04/27/2024 , Expires: 07/27/2024 Start: 04-27-2024 End: 07-27-2024 Erythrocyte sedimentation rate SEDIMENTATION RATE, WESTERGREN Lab Routine Other polyneuropathy Expected: 04/27/2024, Expires: 07/27/2024 [facility] Comment on above: Expected: 04/27/2024 , Expires: 07/27/2024 Start: 04-27-2024 End: 07-27-2024 Folate [Mass/volume] in Serum or Plasma FOLATE, SERUM Lab Routine 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 behavioral disturbance, psychotic disturbance, mood disturbance, or anxiety, unspecified dementia type (HCC) Other polyneuropathy Expected: 04/27/2024, Expires: 07/27/2024 [facility] Work Phone: Comment on above: Expected: 04/27/2024 , Expires: 07/27/2024 Start: 04-27-2024 End: 04-27-2024 Patient encounter procedure 04/27/2024 2:00 PM EDT Office Visit Neurology [address] [place] [address] Tram Santana MD [address] [place], [place] [address] Tremor, essential [G25.0] Neurology Comment on above: Tremor, essential [G 25.0] Start: 04-27-2024 End: 07-27-2024 PROT ELECT SERUM WITH ROBERTO AND INTERP PROT ELECT SERUM WITH ROBERTO AND INTERP Lab Routine Other polyneuropathy Expected: 04/27/2024, Expires: 07/27/2024 [facility] Comment on above: Expected: 04/27/2024 , Expires: 07/27/2024 Start: 04-27-2024 End: 07-27-2024 Thyrotropin [Units/volume] in Serum or Plasma THYROID STIMULATING HORMONE Lab Routine 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 behavioral disturbance, psychotic disturbance, mood disturbance, or anxiety, unspecified dementia type (HCC) Other polyneuropathy Expected: 04/27/2024, Expires: 07/27/2024 [facility] Comment on above: Expected: 04/27/2024 , Expires: 07/27/2024 Start: 04-08-2024 Hemoglobin A1c measurement HbA1C [facility] Start: 03-17-2024 End: 03-17-2024 Patient encounter procedure 03/17/2024 3:25 PM EDT Appointment Radiology [address] [place] [phone] Dx: Osteoporosis, 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] Radiology Comment on above: Dx: Osteoporosis, po st-menopausal [M81.0] Start: 03-09-2024 End: 03-09-2024 Patient encounter procedure 03/09/2024 1:00 PM EDT Office Visit General Surgery [address] [facility] [place] [address] Marisa Sheldon APRN.OUTSIDE SALES ACCOUNT REPRESENTATIVE [address] [facility] [place] [address] colonoscopy consult General Surgery Comment on above: colonoscopy consult Start: 03-03-2024 End: 03-03-2024 Patient encounter procedure 03/03/2024 1:00 PM EDT Office Visit Cardiology [address] [address] Michael Rodriguez DO [address] [place] [address] Atherosclerosis of [place] coronary artery of [place] heart without angina pectoris [I25.10] Cardiology Comment on above: Atherosclerosis of n ative coronary artery of [place] heart without angina pectoris [I25.10] Start: 02-18-2024 End: 05-19-2024 25-hydroxyvitamin D3 [Mass/volume] in Serum or Plasma [facility] Comment on above: Expected: 02/18/2024 , Expires: 05/19/2024 Start: 02-18-2024 End: 05-19-2024 CBC W Auto Differential panel - Blood [facility] Work Phone: Comment on above: Expected: 02/18/2024 , Expires: 05/19/2024 Start: 02-12-2024 Urine microalbumin profile [facility] Comment on above: Postponed from 06/09 (Declined at this time) Start: 01-02-2024 Hemoglobin A1c/Hemoglobin.total in Blood HbA1C [facility] Start: 12-25-2023 Glaucoma screening Dilated Retinal E xam [facility] Start: 12-25-2023 Hepatitis C antibody , confirmatory test DILATED RETINAL EXAM [facility] Start: 09-28-2023 Advance Directive Discussion Advance Directive Discussion [facility] Start: 09-28-2023 Behavioral Health Screening Behavioral Health Screening [facility] Start: 08-14-2023 Hemoglobin A1c/Hemoglobin.total in Blood HBA1C [facility] Start: 07-23-2023 End: 09-22-2023 25-hydroxyvitamin D3 [Mass/volume] in Serum or Plasma VITAMIN D 25 HYDROXY Lab Routine Vitamin D deficiency Expected: 07/23/2023, Expires: 09/22/2023 [facility] Work Phone: Comment on above: Expected: 07/23/2023 , Expires: 09/22/2023 Start: 07-23-2023 End: 09-22-2023 ALBUMIN/CREAT RATIO RND UR ALBUMIN/CREAT RATIO RND UR Lab Routine 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) Expected: 07/23/2023, Expires: 09/22/2023 [facility] Work Phone: Comment on above: Expected: 07/23/2023 , Expires: 09/22/2023 Start: 07-23-2023 End: 09-22-2023 CBC panel - Blood by Automated count CBC Lab Routine 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) Expected: 07/23/2023, Expires: 09/22/2023 [facility] Work Phone: Comment on above: Expected: 07/23/2023 , Expires: 09/22/2023 Start: 07-23-2023 End: 09-22-2023 Comprehensive metabolic 2000 panel - Serum or Plasma COMP METABOLIC PANEL Lab Routine 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) Expected: 07/23/2023, Expires: 09/22/2023 [facility] Work Phone: Comment on above: Expected: 07/23/2023 , Expires: 09/22/2023 Start: 07-23-2023 End: 09-22-2023 Hemoglobin A1c in Blood HGB A1C Lab Routine 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) Expected: 07/23/2023, Expires: 09/22/2023 [facility] Work Phone: Comment on above: Expected: 07/23/2023 , Expires: 09/22/2023 Start: 07-23-2023 End: 09-22-2023 Lipid 1996 panel - Serum or Plasma LIPID PANEL BASIC Lab Routine Mixed hyperlipidemia Expected: 07/23/2023, Expires: 09/22/2023 [facility] Work Phone: Comment on above: Expected: 07/23/2023 , Expires: 09/22/2023 Start: 06-26-2023 3 comp foot exam completed DIABETIC FOOT EXAM [facility] Start: 06-26-2023 Hepatitis B screening URINE AL BUMIN:CREATININE RATIO [facility] Start: 06-23-2023 Hepatitis B surface antibody level LDL CHOLESTEROL [facility] Start: 05-29-2023 [facility] Start: 12-21-2022 Hemoglobin A1c/Hemoglobin.total in Blood HBA1C [facility] Start: 12-04-2022 End: 02-03-2023 Basic metabolic 2000 panel - Serum or Plasma BASIC METABOLIC PNL Lab Routine 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) Expected: 12/04/2022, Expires: 02/03/2023 [facility] Work Phone: Comment on above: Expected: 12/04/2022 , Expires: 02/03/2023 Start: 12-04-2022 End: 02-03-2023 CBC panel - Blood by Automated count CBC Lab Routine Polycythemia Expected: 12/04/2022, Expires: 02/03/2023 [facility] Work Phone: Comment on above: Expected: 12/04/2022 , Expires: 02/03/2023 Start: 12-04-2022 End: 02-03-2023 Hemoglobin A1c in Blood HGB A1C Lab Routine 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) Expected: 12/04/2022, Expires: 02/03/2023 [facility] Work Phone: Comment on above: Expected: 12/04/2022 , Expires: 02/03/2023 Start: 10-26-2022 Covid-19 Vaccine (5 - Pfizer series) Covid-19 Vaccine (5 - Pfizer series) [facility] Start: 09-28-2022 ADVANCE DIRECTIVE DISCUSSION ADVANCE DIRECTIVE DISCUSSION [facility] Start: 09-28-2022 DEPRESSION ASSESSMENT DEPRESSION ASS ESSMENT [facility] Start: 07-02-2022 Hepatitis B screening URINE AL BUMIN:CREATININE RATIO [facility] Start: 06-26-2022 End: 08-26-2022 ALBUMIN/CREAT RATIO RND UR [facility] Work Phone: Comment on above: Expected: 06/26/2022 , Expires: 08/26/2022 Start: 05-29-2022 Influenza vaccination INFLUENZA (#1) [facility] Start: 01-07-2022 3 comp foot exam completed DIABETIC FOOT EXAM [facility] Start: 12-31-2021 Hemoglobin A1c/Hemoglobin.total in Blood HBA1C [facility] Start: 12-31-2021 Hepatitis B surface antibody level LDL CHOLESTEROL [facility] Start: 11-28-2021 COVID-19 VACCINE (4 - Booster for Pfizer series) COVID-19 VACCINE (4 - Booster for Pfizer series) [facility] Start: 09-28-2021 ADVANCE DIRECTIVE DISCUSSION ADVANCE DIRECTIVE DISCUSSION [facility] Start: 09-28-2021 DEPRESSION ASSESSMENT DEPRESSION ASS ESSMENT [facility] Start: 08-02-2020 Hepatitis C antibody , confirmatory test DILATED RETINAL EXAM [facility] Start: 09-19-2016 Screening for osteoporosis Bone Density Screening [facility] Start: 06-09-2006 Urine microalbumin profile [facility] Start: 1999 Hepatitis B Vaccine (1 of 3 - Risk 3-dose series) Hepatitis B Vaccine (1 of 3 - Risk 3-dose series) [facility] Start: 1999 RSV Vaccine (1 - 1-d ose 60+ series) RSV Vaccine (1 - 1-dose 60+ series) [facility] CTA Head vessels and Neck vessels W contrast IV [facility] End: 03-19-2025 DXA Skeletal system.axial Views for bone density DXA-AXIAL SKELETON Radiology Routine Osteoporosis, post-menopausal 1 Occurrences starting 02/18/2024 until 03/19/2025 [facility] Comment on above: 1 Occurrences starti ng 02/18/2024 until 03/19/2025 DXA Skeletal system. axial Views for bone density DXA-AXIAL SKELETON Radiology Routine Osteoporosis, post-menopausal 05/05/2024 2:01 PM EDT [facility] Work Phone: ECG COMPLETE ECG COMPLETE ECG 05/18/2024 3:05 PM EDT [facility] End: 05-18-2025 Echocardiography ECHO Cardiology Routine CAD S/P percutaneous coronary angioplasty Primary hypertension Mixed hyperlipidemia JL on CPAP PAD (peripheral artery disease) (HCC) Nonrheumatic aortic valve stenosis S/P right coronary artery (RCA) stent placement 1 Occurrences starting 05/18/2024 until 05/18/2025 [facility] Work Phone: Comment on above: 1 Occurrences starti ng 05/18/2024 until 05/18/2025 End: 02-27-2026 EPIL EEG ROUTINE EPIL EEG ROUTINE NEUROLOGY Routine 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 behavioral disturbance, psychotic disturbance, mood disturbance, or anxiety, unspecified dementia type (HCC) Seizure-like activity (HCC) 1 Occurrences starting 02/27/2025 until 02/27/2026 [facility] Work Phone: Comment on above: 1 Occurrences starti ng 02/27/2025 until 02/27/2026 End: 03-24-2023 PVR LEG NAVNEET VAS LAB PVR LEG [facility] Vascular Lab Routine Left leg pain Left leg weakness Gait abnormality 1 Occurrences starting 03/24/2022 until 03/24/2023 [facility] Work Phone: Comment on above: 1 Occurrences starti ng 03/24/2022 until 03/24/2023 End: 07-26-2023 Us soft tissue head & neck real time imge docm US THYROID/PARATHYROID Radiology Routine Anterior cervical lymphadenopathy 1 Occurrences starting 06/26/2022 until 07/26/2023 [facility] Work Phone: Comment on above: 1 Occurrences starti ng 06/26/2022 until 07/26/2023 [facility] Immunizations Immunization Date Immunization Notes Care Provider Fa [facility] 07-28-2024 COVID-19 vaccine, ag e 12+ yr (MODERNA) Matheus Fajardo MD Work Phone: [facility] 07-28-2024 influenza, high dose seasonal, preservative-free Matheus Fajardo MD Work Phone: [facility] 07-28-2024 influenza virus vacc ine, unspecified formulation Maribell Hill MD Work Phone: [facility] 02-16-2024 respiratory syncytia l virus (RSV), unspecified formulation Matheus Fajardo MD Work Phone: [facility] 07-07-2023 influenza (HD-IIV4) vaccine, age 65+ yr, high dose, quadrivalent, PF (FLUZONE HIGH-DOSE) 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 Work Phone: [facility] Work Phone: 07-07-2023 influenza virus vacc ine, unspecified formulation Matheus Fajardo MD Work Phone: [facility] 06-26-2022 COVID-19 booster vaccine, age 12+ yr, bivalent ([employer]) Matheus Fajardo MD Work Phone: [facility] Work Phone: 06-26-2022 influenza, high-dose , quadrivalent vaccine (FLUZONE HIGH DOSE QUADRIVALENT) Matheus Fajrado MD Work Phone: [facility] Work Phone: 06-26-2022 influenza virus vacc ine, unspecified formulation Matheus Fajardo MD Work Phone: [facility] 06-27-2021 influenza, high dose seasonal, preservative-free Emg 850) [facility] 11-22-2020 COVID-19 vaccine, ag e 12+ yr (PFIZER-BIONTECH - PURPLE TOP) Emg 850) [facility] Work Phone: 11-01-2020 COVID-19 vaccine, ag e 12+ yr (PFIZER-BIONTECH - PURPLE TOP) Emg 850) [facility] Work Phone: 06-11-2020 influenza, high-dose , quadrivalent vaccine (FLUZONE HIGH DOSE QUADRIVALENT) Emg 850) [facility] Work Phone: 07-01-2019 influenza, high dose seasonal, preservative-free Emg 850) [facility] Work Phone: 06-27-2019 zoster vaccine recombinant Emg 850) [facility] Work Phone: 04-14-2019 zoster vaccine recombinant Emg 850) [facility] Work Phone: 07-02-2018 influenza, high dose seasonal, preservative-free Emg 850) [facility] Work Phone: 06-13-2016 influenza, high dose seasonal, preservative-free Emg 850) [facility] Work Phone: 07-02-2015 influenza, high dose seasonal, preservative-free Emg 850) [facility] 10-31-2014 pneumococcal conjuga te vaccine, 13 valent Emg 850) [facility] 09-06-2013 zoster vaccine, live Emg 850) [facility] 07-08-2013 influenza virus vacc ine, unspecified formulation Emg 850) [facility] 07-17-2012 influenza virus vacc ine, unspecified formulation Emg 850) [facility] 07-23-2011 influenza virus vacc ine, unspecified formulation Emg 850) [facility] Work Phone: 07-23-2010 influenza virus vacc ine, unspecified formulation Emg 850) [facility] 07-11-2009 influenza virus vacc ine, unspecified formulation Emg 850) [facility] Work Phone: 07-14-2008 influenza virus vacc ine, unspecified formulation Emg 850) [facility] Work Phone: 07-28-2007 influenza virus vacc ine, unspecified formulation Emg 850) [facility] Work Phone: 08-10-2006 influenza virus vacc ine, unspecified formulation Emg 850) [facility] Work Phone: 06-08-2006 tetanus and diphther ia toxoids, adsorbed, preservative free, for adult use (2 Lf of tetanus toxoid and 2 Lf of diphtheria toxoid) Emg 850) [facility] Work Phone: 08-06-2005 influenza virus vacc ine, unspecified formulation Emg 850) [facility] Work Phone: 04-25-2005 pneumococcal polysaccharide vaccine, 23 valent Emg 850) [facility] Work Phone: 07-20-2004 influenza virus vacc ine, unspecified formulation Emg 850) [facility] Payers Date Payer Category Payer Self-pay [id number] 2024 Medicare (Managed Care) O EDE DVANTAGE O [id number] 2024 Unknown [id number] 2022 Unknown [id number] 2021 Medicare HUMANA MEDICARE HUMANA MEDICARE PPO [id number] 2021-Present [phone] [address] [address] [place] [address] PPO [id number] 2019 Medicare [id number] 2003 Medicare SELF PAY INSURANCE [id number] Medicare [id number] Medicare SELF PAY INSURANCE [id number] Unknown [id number] Unknown [id number] Unknown [id number] Unknown [id number] Unknown [id number] Unknown [id number] Unknown [id number] Unknown [id number] Social History Date Type Detail Facility Start: [birth year]30-1967 End: 05-18-2024 Tobacco smoking status OHIS Smokes tobacco daily [facility] Work Phone: Start: [birth year]30-1967 History of tobacco use Cigarette Smoker [facility] Start: 12-13-2021 End: 02-27-2025 Alcohol intake Current non-drinker of alcohol (finding) [facility] Start: 06-11-2020 End: 09-04-2022 History SDOH Alcohol Frequency 1 [facility] Start: 06-11-2020 History SDOH Alcohol Std Drinks 99 [facility] Start: 10-17-2019 End: 09-04-2022 History SDOH Social Connections Phone 5 [facility] Start: 06-05-2020 History SDOH Social Connections Get Together 4 [facility] Start: 10-17-2019 End: 09-04-2022 History SDOH Social Connections Worship 3 [facility] Start: 10-17-2019 End: 09-04-2022 History SDOH Social Connections Membership 2 [facility] Start: 10-16-2019 Education 21 [facility] Start: 1940 Sex Assigned At Female [facility] Start: 12-10-2021 End: 06-26-2022 Exposure to SARS-CoV-2 (event) Not sure [facility] Start: 03-24-2022 End: 09-04-2022 History SDOH Physical Activity DPW 0 [facility] Start: 03-24-2022 History SDOH Transport Non-Med 98 [facility] Start: 03-27-2022 Tobacco smoking status NHIS Unknown if ever smoked [facility] Work Phone: Start: 01-26-2021 Cigarettes [facility] Start: 05-19-2019 End: 02-11-2023 Cigarettes smoked current (pack per day) - Reported 0.5 [facility] Start: 05-19-2019 End: 05-18-2024 Tobacco use and exposure Smokeless tobacco non-user [facility] Work Phone: Start: 09-03-2022 End: 02-11-2023 Social connection and isolation panel [facility] Do you belong to any clubs or organizations such as buddhist groups, unions, fraternal or athletic groups, or school groups? No [facility] Are you now , , , , never or living with a partner? [facility] How often to you hav e a drink containing alcohol? Never [facility] Start: 08-29-2012 How many standard drinks containing alcohol do you have on a typical day? Patient does not drink [facility] Do you feel stress - tense, restless, nervous, or anxious, or unable to sleep at night because your mind is troubled all the time - these days [OSQ] Not at all [facility] (I/We) worried wheth er (my/our) food would run out before (I/we) got money to buy more. Never true [facility] Start: 05-13-2019 Gender identity Identifies as female gender (finding) [facility] Start: 05-13-2019 Sexual orientation Heterosexual (finding) [facility] Medical Equipment Procedure Code Equipment Code Equipment Origin al Text Equipment Identifier Dates Start: 01-17-2008 End: 03-24-2022 Comment on above: Test daily as direct ed 250.00, check blood sugars d aily. DX:250.00 Functional Status Date Assessment Result Facility 05-19-2019 Are you deaf, or do you have serious difficulty hearing Yes 05/19/2019 9:34 AM Matheus Bruno MD Yes [facility] 05-19-2019 Are you blind, or do you have serious difficulty seeing, even when wearing glasses No 05/19/2019 9:34 AM Matheus Bruno MD No [facility] 05-19-2019 Do you have serious difficulty walking or climbing stairs No 05/19/2019 9:34 AM Matheus Bruno MD No [facility] 05-19-2019 Do you have difficul ty dressing or bathing No 05/19/2019 9:34 AM Matheus Bruno MD No [facility] 05-19-2019 Because of a physica l, mental, or emotional condition, do you have difficulty doing errands alone such as visiting a physician's office or shopping No 05/19/2019 9:34 AM Matheus Bruno MD No [facility] Mental Status Date Assessment Result Facility 05-19-2019 Because of a physica l, mental, or emotional condition, do you have serious difficulty concentrating, remembering, or making decisions No 05/19/2019 9:34 AM Matheus Bruno MD No [facility] Clinical Notes 11-04-2017 to 05-23-2025 Telephone Encounter - Matheus Fajardo MD - 05/23/2025 7:03 PM EDTTelephone Encounter - Matheus Fajardo MD - 05/23/2025 7:03 PM EDTTelephone Encounter - ChrissyLiza cruz - 05/23/2025 3:53 PM EDT Note Date & Type Note Facility 05-23-2025 Telephone encounter Note The following approved medication requests have been transmitted electronically. Requested Prescriptions Signed Prescriptions Disp Refills gabapentin (NEURONTIN) 300 mg capsule 90 capsule 5 Sig: Take 1 capsule by mouth three times a day for 180 days. Authorizing Provider: MATHEUS FAJARDO MD [facility] 05-23-2025 Miscellaneous Notes The following approved medication requests have been transmitted electronically. Requested Prescriptions Signed Prescriptions Disp Refills gabapentin (NEURONTIN) 300 mg capsule 90 capsule 5 Sig: Take 1 capsule by mouth three times a day for 180 days. Authorizing Provider: MATHEUS FAJARDO MD Patient has been identified by name and date of : Yes Patient phones for refill(s): Requested Prescriptions Pending Prescriptions Disp Refills gabapentin (NEURONTIN) 300 mg capsule 90 capsule 5 Sig: Take 1 capsule by mouth three times a day for 180 days. Date of last office visit in primary care: 02/23/2025 Date of next office visit in primary care: 08/22/2025 Please advise. Thank you. Vivian Samuels LPN. Patient's calling to request medication. gabapentin (NEURONTIN) 300 mg capsule () Patient last seen: 02-23-25 Future visit scheduled: yes PHARMACY: [facility]. documented in this encounter [facility] 05-23-2025 Telephone encounter Note Patient has been identified by name and date of : Yes Patient phones for refill(s): Requested Prescriptions Pending Prescriptions Disp Refills gabapentin (NEURONTIN) 300 mg capsule 90 capsule 5 Sig: Take 1 capsule by mouth three times a day for 180 days. Date of last office visit in primary care: 02/23/2025 Date of next office visit in primary care: 08/22/2025 Please advise. Thank you. Vivian Samuels LPN. [facility] 05-23-2025 Telephone encounter Note Patient's calling to request medication. gabapentin (NEURONTIN) 300 mg capsule () Patient last seen: 02-23-25 Future visit scheduled: yes PHARMACY: [facility]. [facility] 04-18-2025 Telephone encounter Note The patient has been identified by name and date of : Yes Caregiver verified no other encounters exist for this prescription request: Yes Caregiver confirmed with patient/requestor that no other refills are due, in the near future, with this provider at this time: Yes The last office visit in the department: 02/23/2025 Does the patient have a future office visit with this provider/department: Yes 08/22/2025 Requested Prescriptions Pending Prescriptions Disp Refills atenolol (TENORMIN) 25 mg tablet 45 tablet 3 Sig: Take 1 tablet by mouth every other day. Elizabeth Saeed RN April 18, 2025 2:44 PM [facility] 04-18-2025 Miscellaneous Notes The patient has been identified by name and date of : Yes Caregiver verified no other encounters exist for this prescription request: Yes Caregiver confirmed with patient/requestor that no other refills are due, in the near future, with this provider at this time: Yes The last office visit in the department: 02/23/2025 Does the patient have a future office visit with this provider/department: Yes 08/22/2025 Requested Prescriptions Pending Prescriptions Disp Refills atenolol (TENORMIN) 25 mg tablet 45 tablet 3 Sig: Take 1 tablet by mouth every other day. Elizabeth Saeed RN April 18, 2025 2:44 PM documented in this encounter [facility] 04-05-2025 Telephone encounter Note Called pt, spoke to spouse informed him ECHO order has been placed and can be scheduled for May [facility] 04/05/25 Dr. Hill 2. Mitral regurgitation and aortic stenosis - ICD9: 396.2, ICD10: I08.0 TTE 03/2022: EF 65%, 1+MR, mild TR, mild to mod - Discussed repeating echo if no outside echo is seen. [facility] 04-05-2025 Miscellaneous Notes Called pt, spoke to spouse informed him ECHO order has been placed and can be scheduled for May [facility] 04/05/25 Dr. Hill 2. Mitral regurgitation and aortic stenosis - ICD9: 396.2, ICD10: I08.0 TTE 03/2022: EF 65%, 1+MR, mild TR, mild to mod - Discussed repeating echo if no outside echo is seen. Please inform Ms. Herron that there was no outside echocardiogram seen from this year.Order has been placed for her to have it scheduled in May 2025. Please inform her to contact scheduling to arrange this documented in this encounter [facility] 04-04-2025 Telephone encounter Note Please inform Ms. Herron that there was no outside echocardiogram seen from this year.Order has been placed for her to have it scheduled in May 2025. Please inform her to contact scheduling to arrange this [facility] 04-04-2025 History of Presen t illness Narrative Images from the original note were not included. [facility] OUTPATIENT VISIT DATE 04/04/2025 OUTPATIENT VISIT TYPE ESTABLISHED PRIMARY CARE PHYSICIAN: Matheus Fajardo [address] [place] [address] Patient is being seen at the request of self for follow up HISTORY OF PRESENT ILLNESS: Ms. Herron is a 85 year old female, hx of CAD s/p remote balloon angioplasty 1988 followed by PCI to RCA 2003, mid to mod per 2021 TTE, Hypertension, HLD, JL on CPAP, AAA s/p stent 2003, WILLIE with 20-39% BRAYAN and 60-79% LICA stenosis per carotid artery duplex 2017, hx of tobacco use, PVD presents for f/u. She is accompanied by her . Previously seen by Dr. Gunter 05/18/2024. She denies chest pain, SOB, palpitations, orthopnea, PND, leg swelling, lightheadedness, syncope. Her states that she smokes 1/2 PPD. Recently she was reported to have TIAs in 10/2024. She is wearing a 2 week monitor. Her states that she was told she had 60% blockage in her neck artery. TTE 03/2022: EF 65%, 1+MR, mild TR, mild to mod AAA US 08/2019: Max Ao dimensions 1.7 x 1.7 cm proximal abdominal aorta. Increased flow velocities noted in the distal abdominal aorta consistent with arterial occlusive disease. Mild increased velocities right common iliac artery. 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 [place], RCA stent November 2003. Coronary atherosclerosis of unspecified type of vessel, [place] or graft 07/07/2005 [place], PTCA 1988. [place], RCA stent November 2003. DDD (degenerative disc disease), lumbar 04/19/2014 Dr. Galen Sanchez, pain management Diaphragmatic hernia without mention of obstruction or gangrene Diverticulosis of colon (without mention of hemorrhage) Esophageal reflux Esophagitis, unspecified Essential hypertension 06/10/2016 Excessive sweating, local 05/19/2019 Hemangioma of liver 03/12/2007 Mixed hyperlipidemia 07/07/2005 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 behavioral disturbance, psychotic disturbance, mood disturbance, or anxiety (HCC) 10/15/2023 Nocturnal leg cramps 05/19/2019 JL (obstructive sleep apnea) 10/16/2011 DME [facility] for CPAP Osteoporosis, post-menopausal 09/14/2012 Other microscopic hematuria 11/04/2017 Dr. Galen Waters. 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) 08/22/2024 Polycythemia 10/30/2017 Postmenopausal atrophic vaginitis Tremor, essential 06/11/2020 Type II or unspecified type diabetes mellitus without mention of complication, not stated as uncontrolled 10/01/2006 Ureterolithiasis 11/12/2010 Venous insufficiency of both lower extremities 11/03/2015 PAST SURGICAL HISTORY Procedure Laterality Date BX BREAST PERC VACUUM/ROTN 09/05/08 RIGHT BREAST COLONOSCOPY FLX DX W/COLLJ SPEC WHEN PFRMD 08/05/05 Colonoscopy COLONOSCOPY FLX DX W/COLLJ SPEC WHEN PFRMD 10/06/2006 Colonoscopy COLONOSCOPY FLX DX W/COLLJ SPEC WHEN PFRMD 06/07/2012 Colonoscopy COLONOSCOPY FLX DX W/COLLJ SPEC WHEN PFRMD 06/30/2013 Colonoscopy COLSC FLX W/RMVL OF TUMOR POLYP LESION SNARE TQ 05/22/2017 multiple [id number] follow-up CORONARY ENDARTERCOMY OPEN ANY METHOD 1988 Angioplasty CORRECT BUNION,SIMPLE 09/08/2008 hammertoe CYSTOSCOPY 10/26/2017 EGD TRANSORAL BIOPSY SINGLE/MULTIPLE 09/30/07 EXC BREAST LES PREOP PLMT RAD MARKER OPEN 1 LES 09/05/08 INSERT INTRACORONARY STENT 11/2003 RIGHT CORONARY STENT INSERT INTRACORONARY STENT 02/2004 STENT INFRARENAL ABDOMINAL AORTA PAST SURGICAL HISTORY OF 08/30/2012 Right thumb, wrist surgery PAST SURGICAL HISTORY OF Left 02/15/2018 Left cataract removed STEREOTACTIC CORE BIOPSY 09/05/08 Social History Tobacco Use Smoking status: Every Day Current packs/day: 0.66 Average packs/day: 0.7 packs/day for 58.9 years (38.8 ttl pk-yrs) Types: Cigarettes Start date: 06/30/1966 Smokeless tobacco: Never Vaping Use Vaping status: Never Used Substance Use Topics Alcohol use: No Drug use: No FAMILY HISTORY Problem Relation Age of Onset Colon Cancer Mother other (INTESTINAL TUMOR) Mother UPPER INTESTINAL TUMOR Heart Father [place] Diabetes Father Stroke Father MULTIPLE STROKES Cancer Father skin Heart Brother ANGIOPLASTY Colon Cancer Brother Alzheimer's Disease Brother Aneurysm Brother ALLERGIES Allergen Reactions Amoxicillin Mental Status Change Bee Sting Hives, Swelling, Shortness of Breath Percocet [Oxycodone* Other: See Comments Patient passed out Rosuvastatin Other: See Comments Leg cramps. Sulfa (Sulfonamide * Vicodin [Hydrocodon* Other: See Comments Patient passed out from medication Zocor [Simvastatin] Other: See Comments Clavulanic Acid Itching CURRENT MEDICATIONS: levETIRAcetam (KEPPRA) 500 mg tablet Take 1 tablet by mouth two times a day. donepezil (ARICEPT) 5 mg tablet Take 1 tablet by mouth once daily. atenolol (TENORMIN) 25 mg tablet Take 1 tablet by mouth every other day. gabapentin (NEURONTIN) 300 mg capsule Take 1 capsule by mouth three times a day for 180 days. mirabegron (MYRBETRIQ) 50 mg Tb24 Take 1 tablet by mouth once daily. PARoxetine (PAXIL) 10 mg tablet Take 1 tablet by mouth once daily. atorvastatin (LIPITOR) 80 mg tablet Take 1 tablet by mouth daily at bedtime. nitroglycerin sublingual (NITROQUICK) 0.4 mg SL tablet Dissolve 1 tablet under the tongue as needed. FOR CHEST PAIN. IF NO RELIEF CALL 911 triamcinolone acetonide (NASACORT AQ) 55 mcg nasal inhaler Use 2 Sprays in the nose once daily. CPAP CPAP mask and other supplies as needed. Mask per pt preference, tubing, filters, heated humidity, lifetime supplies. Dx: JL on CPAP. G47.33. Cholecalciferol, Vitamin D3, 2,000 unit cap Take 2 capsules by mouth once daily. ASPIRIN 81 MG TAB once daily PHYSICAL EXAMINATION: BP 112/70 Pulse 61 Wt 71.9 kg (158 lb 8.2 oz) SpO2 96% BMI 26.38 kg/m General: Appears comfortable in no apparent cardiopulmonary distress Neck: No JVD, no bruits CVS: S1, S2, No m/r/g Chest: CTAB Abd: Soft, nontender, no masses, BS present Ext: No pedal edema, pedal pulses 2+ bilaterally Neuro: No focal neurological deficits CARDIOVASCULAR MEDICINE TESTING: Last ECHO Result Conclusion ECHO Collected: 06/02/2024 11:36 AM (Final result) Impression: CONCLUSIONS: - Technically difficult exam due to body habitus. - Exam indication: CAD - The left ventricle is small. Left ventricular systolic function is normal. EF = 60 5% (2D biplane) Grade I left ventricular diastolic dysfunction. - The right ventricle is normal in size. Right ventricular systolic function is normal. - There is moderate aortic valve stenosis caused by calcified valve. AV area is 1.20 cm (0.65 cm /m ) by continuity, VTI. The peak gradient is 39 mmHg, the mean gradient is 21 mmHg and the dimensionless valve index is 0.42. - Exam was compared with the prior echocardiographic exam performed on 04/24/2015, AV gradients have increased. * * * Final * * * Last EKG Result Conclusion ECG COMPLETE Collected: 05/18/2024 3:05 PM (Final result) Impression: NORMAL SINUS RHYTHM LOW VOLTAGE QRS, CONSIDER PULMONARY DISEASE, PERICARDIAL EFFUSION, OR NORMAL VARIANT BORDERLINE ECG Confirmed by MD GUNTER GREGORY () on 05/25/2024 8:02:25 AM ASSESSMENT/PLAN: 1. Coronary artery disease due to lipid rich plaque - ICD9: 414.00, 414.3, ICD10: I25.10, I25.83 (primary diagnosis) Stable - Continue medical therapy - Counseled on importance of smoking cessation. - Low cholesterol diet- avoid red meats and processed foods, focus on lean portions of white meat- chicken and turkey breast, fish, healthy nuts, fruits, vegetables. - Discussed importance of physical activity. Her states that she does not engage in exercise. 2. Mitral regurgitation and aortic stenosis - ICD9: 396.2, ICD10: I08.0 TTE 03/2022: EF 65%, 1+MR, mild TR, mild to mod - Discussed repeating echo if no outside echo is seen. 3. Bilateral carotid artery stenosis - ICD9: 433.10, 433.30, ICD10: I65.23 Patient seen by vascular surgery at [facility] on 12/05/2024. Per their clinic note, CTA was reviewed and showed 60 to 65% stenosis bilaterally by NASCET. Discussed management options including intervention versus continued monitoring with patient and , they elected for continued monitoring and medical management, recommended repeat CTA head/neck in 1 year. -Continue to follow with vascular surgery 4. Abdominal aortic aneurysm (AAA) without rupture, unspecified part - ICD9: 441.4, ICD10: I71.40 Stable - Continue to follow with vascular surgery Maribell Hill MD, [facility] Limited records seen after her visit: Head/neck CTA 11/10/2024: Tight stenosis origin of LICA with tiny left vertebral artery. Mild atherosclerotic disease with no hemodynamically significant stenosis in arteries of head and neck. 46% stenosis proximal R ICA, 29% proximal LICA stenosis age-appropriate volume loss and remote small vessel ischemic changes documented in this encounter [facility] 04-04-2025 Note HNO ID: [id number] Author: MARIBELL HILL MD Service: ? Author Type: Physician Type: Progress Notes Filed: 04/04/2025 17:42 Note Text: [facility] SE[facility] OF REGIONAL CARDIOLOGY OUTPATIENT VISIT DATE 04/04/2025 OUTPATIENT VISIT TYPE ESTABLISHED PRIMARY CARE PHYSICIAN: Matheus Fajardo [address] [place] [address] Patient is being seen at the request of self for follow up HISTORY OF PRESENT ILLNESS: Ms. Herron is a 85 year old female, hx of CAD s/p remote balloon angioplasty 1988 followed by PCI to RCA 2003, mid to mod per 2021 TTE, Hypertension, HLD, JL on CPAP, AAA s/p stent 2003, WILLIE with 20-39% BRAYAN and 60-79% LICA stenosis per carotid artery duplex 2017, hx of tobacco use, PVD presents for f/u. She is accompanied by her . Previously seen by Dr. Gunter 05/18/2024. She denies chest pain, SOB, palpitations, orthopnea, PND, leg swelling, lightheadedness, syncope. Her states that she smokes 1/2 PPD. Recently she was reported to have TIAs in 10/2024. She is wearing a 2 week monitor. Her states that she was told she had 60% blockage in her neck artery. TTE 03/2022: EF 65%, 1+MR, mild TR, mild to mod AAA US 08/2019: Max Ao dimensions 1.7 x 1.7 cm proximal abdominal aorta. Increased flow velocities noted in the distal abdominal aorta consistent with arterial occlusive disease. Mild increased velocities right common iliac artery. 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 [place], RCA stent November 2003. Coronary atherosclerosis of unspecified type of vessel, [place] or graft 07/07/2005 [place]. [place], RCA stent November 2003. DDD (degenerative disc disease), lumbar 04/19/2014 Dr. Galen Sanchez, pain management Diaphragmatic hernia without mention of obstruction or gangrene Diverticulosis of colon (without mention of hemorrhage) Esophageal reflux Esophagitis, unspecified Essential hypertension 06/10/2016 Excessive sweating, local 05/19/2019 Hemangioma of liver 03/12/2007 Mixed hyperlipidemia 07/07/2005 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 behavioral disturbance, psychotic disturbance, mood disturbance, or anxiety (HCC) 10/15/2023 Nocturnal leg cramps 05/19/2019 JL (obstructive sleep apnea) 10/16/2011 DME Niall for CPAP Osteoporosis, post-menopausal 09/14/2012 Other microscopic hematuria 11/04/2017 Dr. Galen Waters. 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 (HCC) 08/22/2024 Polycythemia 10/30/2017 Postmenopausal atrophic vaginitis Tremor, essential 06/11/2020 Type II or unspecified type diabetes mellitus without mention of complication, not stated as uncontrolled 10/01/2006 Ureterolithiasis 11/12/2010 Venous insufficiency of both lower extremities 11/03/2015 PAST SURGICAL HISTORY Procedure Laterality Date BX BREAST PERC VACUUM/ROTN 09/05/08 RIGHT BREAST COLONOSCOPY FLX DX W/COLLJ SPEC WHEN PFRMD 08/05/05 Colonoscopy COLONOSCOPY FLX DX W/COLLJ SPEC WHEN PFRMD 10/06/2006 Colonoscopy COLONOSCOPY FLX DX W/COLLJ SPEC WHEN PFRMD 06/07/2012 Colonoscopy COLONOSCOPY FLX DX W/COLLJ SPEC WHEN PFRMD 06/30/2013 Colonoscopy COLSC FLX W/RMVL OF TUMOR POLYP LESION SNARE TQ 05/22/2017 multiple [id number] follow-up CORONARY ENDARTERCOMY OPEN ANY METHOD 1989 Angioplasty CORRECT BUNION,SIMPLE 09/08/2008 hammertoe CYSTOSCOPY 10/26/2017 EGD TRANSORAL BIOPSY SINGLE/MULTIPLE 09/30/07 EXC BREAST LES PREOP PLMT RAD MARKER OPEN 1 LES 09/05/08 INSERT INTRACORONARY STENT 11/2003 RIGHT CORONARY STENT INSERT INTRACORONARY STENT 02/2004 STENT INFRARENAL ABDOMINAL AORTA PAST SURGICAL HISTORY OF 08/30/2012 Right thumb, wrist surgery PAST SURGICAL HISTORY OF Left 02/15/2018 Left cataract removed STEREOTACTIC CORE BIOPSY 09/05/08 Social History Tobacco Use Smoking status: Every Day Current packs/day: 0.66 Average packs/day: 0.7 packs/day for 58.9 years (38.8 ttl pk-yrs) Types: Cigarettes Start date: 06/30/1966 Smokeless tobacco: Never Vaping Use Vaping status: Never Used Substance Use Topics Alcohol use: No Drug use: No FAMILY HISTORY Problem Relation Age of Onset Colon Cancer Mother other (INTESTINAL TUMOR) Mother UPPER INTESTINAL TUMOR Heart Father [place] Diabetes Father Stroke Father MULTIPLE STROKES Cancer Father skin Heart Brother ANGIOPLASTY Colon Cancer Brother Alzheimer's Disease Brot (more content not included)... [facility] 03-14-2025 Note HNO ID: [id number] Author: THEA CORDOBA APRN.OUTSIDE SALES ACCOUNT REPRESENTATIVE Service: ? Author Type: Nurse Practitioner Type: Progress Notes Filed: 03/14/2025 15:58 Note Text: [facility] Subjective Mattie Herron is a 85 year old female. Patient presents with: Hand Injury: right hand, bilateral knee pain after fall x 1 hour Hand Injury Pertinent negatives include no fatigue, fever, headaches, joint swelling, neck pain or numbness. Patient is a 85-year-old female who comes in with her who fell getting up from the toilet. She had abrasions to her right hand with a believed to be on a towel montaño in addition to hitting the top of her knees. She still able to walk with her walker denies any numbness or tingling in her hand. She does have 2 skin tears on the dorsal aspect of her hand. Denies any head pain head injury or cervical tenderness today. No changes in vision, no nausea vomiting or headache. Review of Systems Constitutional: Negative for fatigue and fever. Musculoskeletal: Negative for back pain, gait problem, joint swelling, neck pain and neck stiffness. Skin: Positive for wound. Neurological: Negative for seizures, light-headedness, numbness and headaches. Objective BP 122/70 Pulse 76 Resp 18 Wt 69.8 kg (153 lb 14.1 oz) SpO2 93% BMI 25.61 kg/m? 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CA stent November 2003. Coronary atherosclerosis of unspecified type of vessel, [place] or graft 07/07/2005 [place] 2003. DDD (degenerative disc disease), lumbar 04/19/2014 Dr. Galen Sanchez, pain management Diaphragmatic hernia without mention of obstruction or gangrene Diverticulosis of colon (without mention of hemorrhage) Esophageal reflux Esophagitis, unspecified Essential hypertension 06/10/2016 Excessive sweating, local 05/19/2019 Hemangioma of liver 03/12/2007 Mixed hyperlipidemia 07/07/2005 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 behavioral disturbance, psychotic disturbance, mood disturbance, or anxiety (HCC) 10/15/2023 Nocturnal leg cramps 05/19/2019 JL (obstructive sleep apnea) 10/16/2011 DME Niall for CPAP Osteoporosis, post-menopausal 09/14/2012 Other microscopic hematuria 11/04/2017 Dr. Galen Waters. 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 (HCC) 08/22/2024 Polycythemia 10/30/2017 Postmenopausal atrophic vaginitis Tremor, essential 06/11/2020 Type II or unspecified type diabetes mellitus without mention of complication, not stated as uncontrolled 10/01/2006 Ureterolithiasis 11/12/2010 Venous insufficiency of both lower extremities 11/03/2015 PAST SURGICAL HISTORY Procedure Laterality Date BX BREAST PERC VACUUM/ROTN 09/05/08 RIGHT BREAST COLONOSCOPY FLX DX W/COLLJ SPEC WHEN PFRMD 08/05/05 Colonoscopy COLONOSCOPY FLX DX W/COLLJ SPEC WHEN PFRMD 10/06/2006 Colonoscopy COLONOSCOPY FLX DX W/COLLJ SPEC WHEN PFRMD 06/07/2012 Colonoscopy COLONOSCOPY FLX DX W/COLLJ SPEC WHEN PFRMD 06/30/2013 Colonoscopy COLSC FLX W/RMVL OF TUMOR POLYP LESION SNARE TQ 05/22/2017 multiple [id number]-nobf follow-up CORONARY ENDARTERCOMY OPEN ANY METHOD 1989 Angioplasty CORRECT BUNION,SIMPLE 09/08/2008 hammertoe CYSTOSCOPY 10/26/2017 EGD TRANSORAL BIOPSY SINGLE/MULTIPLE 09/30/07 EXC BREAST LES PREOP PLMT RAD MARKER OPEN 1 LES 09/05/08 INSERT INTRACORONARY STENT 11/2003 RIGHT CORONARY STENT INSERT INTRACORONARY STENT 02/2004 STENT INFRARENAL ABDOMINAL AORTA PAST SURGICAL HISTORY OF 08/30/2012 Right thumb, wrist surgery PAST SURGICAL HISTORY OF Left 02/15/2018 Left cataract removed STEREOTACTIC CORE BIOPSY 09/05/08 ALLERGIES Amoxicillin, Bee Sting, Percocet [Oxycodone-Acetaminophen], Rosuvastatin, Sulfa (Sulfonamide Antibiotics), Vicodin [Hydrocodone-Acetaminophen], Zocor [Simvastatin], and Clavulanic Acid MEDICATIONS levETIRAcetam (KEPPRA) 500 mg tablet Take 1 tablet by mouth two times a day. donepezil (ARICEPT) 5 mg tablet Take 1 tablet by mouth once daily. albuterol HFA (PROVENTIL HFA, VENTOLIN HFA) 90 mcg/actuation inhaler Inhale 2 puffs as instructed every 4 hours as needed for wheezing/shortness of breath. benzonatate (TESSALON PERLE) 100 mg capsule Take 1 capsule by mouth three times a day as needed for cough for up to 12 doses. atenolol (TENORMIN) 25 mg tablet Take 1 tablet by mouth every other day. gabapentin (NEURONTIN) 300 mg capsule Take 1 capsule by mouth three times a (more content not included)... [facility] 03-14-2025 History of Presen t illness Narrative Images from the original note were not included. [facility] Subjective Mattie Herron is a 85 year old female. Patient presents with: Hand Injury: right hand, bilateral knee pain after fall x 1 hour Hand Injury Pertinent negatives include no fatigue, fever, headaches, joint swelling, neck pain or numbness. Patient is a 85-year-old female who comes in with her who fell getting up from the toilet. She had abrasions to her right hand with a believed to be on a towel montaño in addition to hitting the top of her knees. She still able to walk with her walker denies any numbness or tingling in her hand. She does have 2 skin tears on the dorsal aspect of her hand. Denies any head pain head injury or cervical tenderness today. No changes in vision, no nausea vomiting or headache. Review of Systems Constitutional: Negative for fatigue and fever. Musculoskeletal: Negative for back pain, gait problem, joint swelling, neck pain and neck stiffness. Skin: Positive for wound. Neurological: Negative for seizures, light-headedness, numbness and headaches. 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CA [place] November 2003. Coronary atherosclerosis of unspecified type of vessel, [place] or graft 07/07/2005 [place]. [place]CA stent November 2003. DDD (degenerative disc disease), lumbar 04/19/2014 Dr. Galen Sanchez, pain management Diaphragmatic hernia without mention of obstruction or gangrene Diverticulosis of colon (without mention of hemorrhage) Esophageal reflux Esophagitis, unspecified Essential hypertension 06/10/2016 Excessive sweating, local 05/19/2019 Hemangioma of liver 03/12/2007 Mixed hyperlipidemia 07/07/2005 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 behavioral disturbance, psychotic disturbance, mood disturbance, or anxiety ([facility]) 10/15/2023 Nocturnal leg cramps 05/19/2019 JL (obstructive sleep apnea) 10/16/2011 DME Niall for CPAP Osteoporosis, post-menopausal 09/14/2012 Other microscopic hematuria 11/04/2017 Dr. Galen Waters. 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) 08/22/2024 Polycythemia 10/30/2017 Postmenopausal atrophic vaginitis Tremor, essential 06/11/2020 Type II or unspecified type diabetes mellitus without mention of complication, not stated as uncontrolled 10/01/2006 Ureterolithiasis 11/12/2010 Venous insufficiency of both lower extremities 11/03/2015 PAST SURGICAL HISTORY Procedure Laterality Date BX BREAST PERC VACUUM/ROTN 09/05/08 RIGHT BREAST COLONOSCOPY FLX DX W/COLLJ SPEC WHEN PFRMD 08/05/05 Colonoscopy COLONOSCOPY FLX DX W/COLLJ SPEC WHEN PFRMD 10/06/2006 Colonoscopy COLONOSCOPY FLX DX W/COLLJ SPEC WHEN PFRMD 06/07/2012 Colonoscopy COLONOSCOPY FLX DX W/COLLJ SPEC WHEN PFRMD 06/30/2013 Colonoscopy COLSC FLX W/RMVL OF TUMOR POLYP LESION SNARE TQ 05/22/2017 multiple [id number]-tzrfg-hlxw follow-up CORONARY ENDARTERCOMY OPEN ANY METHOD 1988 Angioplasty CORRECT BUNION,SIMPLE 09/08/2008 hammertoe CYSTOSCOPY 10/26/2017 EGD TRANSORAL BIOPSY SINGLE/MULTIPLE 09/30/07 EXC BREAST LES PREOP PLMT RAD MARKER OPEN 1 LES 09/05/08 INSERT INTRACORONARY STENT 11/2003 RIGHT CORONARY STENT INSERT INTRACORONARY STENT 02/2004 STENT INFRARENAL ABDOMINAL AORTA PAST SURGICAL HISTORY OF 08/30/2012 Right thumb, wrist surgery PAST SURGICAL HISTORY OF Left 02/15/2018 Left cataract removed STEREOTACTIC CORE BIOPSY 09/05/08 ALLERGIES Amoxicillin, Bee Sting, Percocet [Oxycodone-Acetaminophen], Rosuvastatin, Sulfa (Sulfonamide Antibiotics), Vicodin [Hydrocodone-Acetaminophen], Zocor [Simvastatin], and Clavulanic Acid MEDICATIONS levETIRAcetam (KEPPRA) 500 mg tablet Take 1 tablet by mouth two times a day. donepezil (ARICEPT) 5 mg tablet Take 1 tablet by mouth once daily. albuterol HFA (PROVENTIL HFA, VENTOLIN HFA) 90 mcg/actuation inhaler Inhale 2 puffs as instructed every 4 hours as needed for wheezing/shortness of breath. benzonatate (TESSALON PERLE) 100 mg capsule Take 1 capsule by mouth three times a day as needed for cough for up to 12 doses. atenolol (TENORMIN) 25 mg tablet Take 1 tablet by mouth every other day. gabapentin (NEURONTIN) 300 mg capsule Take 1 capsule by mouth three times a day for 180 days. mirabegron (MYRBETRIQ) 50 mg Tb24 Take 1 tablet by mouth once daily. PARoxetine (PAXIL) 10 mg tablet Take 1 tablet by mouth once daily. atorvastatin (LIPITOR) 80 mg tablet Take 1 tablet by mouth daily at bedtime. nitroglycerin sublingual (NITROQUICK) 0.4 mg SL tablet Dissolve 1 tablet under the tongue as needed. FOR CHEST PAIN. IF NO RELIEF CALL 911 triamcinolone acetonide (NASACORT AQ) 55 mcg nasal inhaler Use 2 Sprays in the nose once daily. CPAP CPAP mask and other supplies as needed. Mask per pt preference, tubing, filters, heated humidity, lifetime supplies. Dx: JL on CPAP. G47.33. Cholecalciferol, Vitamin D3, 2,000 unit cap Take 2 capsules by mouth once daily. ASPIRIN 81 MG TAB once daily FAMILY HISTORY Problem Relation Age of Onset Colon Cancer Mother other (INTESTINAL TUMOR) Mother UPPER INTESTINAL TUMOR Heart Father [place] Diabetes Father Stroke Father MULTIPLE STROKES Cancer Father skin Heart Brother ANGIOPLASTY Colon Cancer Brother Alzheimer's Disease Brother Aneurysm Brother Social History Tobacco Use Smoking status: Every Day Current packs/day: 0.66 Average packs/day: 0.7 packs/day for 58.8 years (38.8 ttl pk-yrs) Types: Cigarettes Start date: 06/30/1966 Smokeless tobacco: Never Vaping Use Vaping status: Never Used Substance Use Topics Alcohol use: No Drug use: No Physical Exam Constitutional: Appearance: Normal appearance. HENT: Head: Normocephalic and atraumatic. Right Ear: Tympanic membrane normal. Left Ear: Tympanic membrane normal. Nose: Nose normal. Cardiovascular: Rate and Rhythm: Normal rate and regular rhythm. Pulses: Normal pulses. Heart sounds: Normal heart sounds. Pulmonary: Effort: Pulmonary effort is normal. Breath sounds: Normal breath sounds. Musculoskeletal: Hands: Right knee: No swelling, effusion or lacerations. Normal range of motion. Tenderness present over the medial joint line. No lateral joint line, MCL, LCL, ACL or PCL tenderness. No LCL laxity, MCL laxity, ACL laxity or PCL laxity. Normal pulse. Instability Tests: Anterior drawer test negative. Posterior drawer test negative. Lateral Pillo test negative. Left knee: No swelling, effusion or lacerations. Normal range of motion. Tenderness present over the medial joint line. No lateral joint line, MCL, LCL, ACL or PCL tenderness. No LCL laxity, MCL laxity, ACL laxity or PCL laxity.Normal pulse. Instability Tests: Anterior drawer test negative. Posterior drawer test negative. Lateral Pillo test negative. Right lower leg: Normal. Left lower leg: Normal. Right ankle: Normal. Right Achilles Tendon: Normal. Left ankle: Normal. Left Achilles Tendon: Normal. Right foot: Normal. Left foot: Normal. Comments: Two skin tears, 3x3 cm om dorsal aspect of right hand Neurological: Mental Status: She is alert. {ASSESSMENT/PLAN: 1. Fall, initial encounter - ICD9: E888.9, ICD10: W19.XXXA (primary diagnosis) - XR HAND GENERAL 3V PA/LAT/OBL RIGHT 2. Contusion of knee, unspecified laterality, initial encounter - ICD9: 924.11, ICD10: S80.00XA - XR KNEE GENERAL 4V AP BOTH/PA BOTH/LAT/MERC BILATERAL 3. Contusion of right hand, initial encounter - ICD9: 923.20, ICD10: S60.221A - XR HAND GENERAL 3V PA/LAT/OBL RIGHT 4. Contusion of dorsum of right hand - ICD9: 923.20, ICD10: S60.221A 5. Skin tear of right hand without complication, initial encounter - ICD9: 882.0, ICD10: S61.411A No signs of acute fracture, head injury or cervical tenderness. Patient to follow-up with primary care this week. Take Tylenol as needed for pain keep Shaheen bandage on as long as possible in addition to Steri-Strips due to skin flap. ER if any worsening of symptoms. Spouse with her and agreement with this plan. Thea Cordoba APRN.OUTSIDE SALES ACCOUNT REPRESENTATIVE History and Record Review Clinical information obtained from an independent historian. History obtained from or confirmed by: spouse. External record(s) reviewed: prior outpatient record. Findings from review of outpatient records: Previous medical history Differential Diagnoses - Bilateral knee contusion is more likely for the following reason(s): suggested by H&P - Skin tear, hand contusion is more likely for the following reason(s): suggested by H&P - Head Injury is less likely for the following reason(s): no cervical tenderess, no nuervascular defcits, H&P not suggestive - acute fracture is less likely for the following reason(s): H&P not suggestive Disposition The patient was discharged. OTC Medications were advised: Tylenol Procedures skin tear dorsal surface of right hand irrigated with saline chlorhexidine and Steri-Strips [facility] , wrapped in an Shaheen bandage from the [facility] care documented in this encounter [facility] 03-14-2025 History of Presen t illness Narrative Radiology Service Progress Note PATIENT NAME: Mattie Herron DATE OF SERVICE: March 14, 2025 TIME: 2:42 PM PATIENT IDENTITY VERIFICATION COMPLETED USING TWO (2) IDENTIFIERS: Name and Date of confirmed by patient verbally. FALL SCREENING: Has the patient had 2 falls in the last year or 1 fall with injury or currently using an Ambulatory Assistive Device (Walker, Cane, Wheelchair, Crutches, etc.)? Yes, Patient High Risk for Falls What interventions were put in place to prevent falls during this visit? Offered Assistance with Transfers/Clothing, Instructed Patient to Remain Seated (Not on Exam Table) Until Exam, and Increased Observations by Caregivers PATIENT GENDER DATA: Assigned female at . status: : No status: NO. PATIENT RELEVANT IMPLANT DATA REVIEWED: Yes PATIENT PRESENTS WITH AN IMPLANTABLE OR ATTACHED SLURRY TANK OPERATOR: No RADIOLOGY DEPARTMENT: General X-ray: Exam(s) Completed: Lower Extremity X-Ray(s): Knee, AP / Lat / Tunne / Merchant Bilateral Upper Extremity X-Ray(s): Hand, right PERIPHERAL IV DATA: Not applicable SIGNED BY: RT Mandeep(R) March 14, 2025 2:42 PM documented in this encounter [facility] 03-14-2025 Note HNO ID: [id number] Author: DOUGLAS HOWE RT(Kenny) Service: ? Author Type: Career Technical Supervisor Type: Progress Notes Filed: 03/14/2025 15:17 Note Text: Radiology Service Progress Note PATIENT NAME: Mattie Herron DATE OF SERVICE: March 14, 2025 TIME: 2:42 PM PATIENT IDENTITY VERIFICATION COMPLETED USING TWO (2) IDENTIFIERS: Name and Date of confirmed by patient verbally. FALL SCREENING: Has the patient had 2 falls in the last year or 1 fall with injury or currently using an Ambulatory Assistive Device (Walker, Cane, Wheelchair, Crutches, etc.)? Yes, Patient High Risk for Falls What interventions were put in place to prevent falls during this visit? Offered Assistance with Transfers/Clothing, Instructed Patient to Remain Seated (Not on Exam Table) Until Exam, and Increased Observations by Caregivers PATIENT GENDER DATA: Assigned female at . status: : No status: NO. PATIENT RELEVANT IMPLANT DATA REVIEWED: Yes PATIENT PRESENTS WITH AN IMPLANTABLE OR ATTACHED SLURRY TANK OPERATOR: No RADIOLOGY DEPARTMENT: General X-ray: Exam(s) Completed: Lower Extremity X-Ray(s): Knee, AP / Lat / Tunne / Merchant Bilateral Upper Extremity X-Ray(s): Hand, right PERIPHERAL IV DATA: Not applicable SIGNED BY: RT Mandeep(R) March 14, 2025 2:42 PM [facility] 02-27-2025 Instructions Tram Santana MD - 02/27/2025 10:55 AM EDT 1. Start Keppra (AKA levetiracetam) for suspected seizures - take 1/2 pill twice a day for a week then increase to a full pill twice a day thereafter. Watch out for irritability as the main possible side effect. 2. Get a seizure test called an EEG documented in this encounter [facility] 02-27-2025 Note HNO ID: [id number] Author: TRAM SANTANA MD Service: ? Author Type: Physician Type: Progress Notes Filed: 02/27/2025 14:51 Note Text: FOLLOW UP NOTE Subjective Mattie Herron is a 85 year old female who presents for follow up. 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 Her examination demonstrates severe hearing loss, disorientation, impaired recall, R>L mild parkinsonism, LE numbness, and sensory ataxic gait. 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 Probably Alzheimer's based on pattern but also has severe hearing loss and she is on oxybutynin which could be contributing. Offered MRI Brain, deferred. Start donepezil 5 mg daily. Encouraged activity. Ask urology about alternative bladder medications. For Pism, would just recommend observation for now. Mild symptoms not impacting function. Gait is from sensory ataxia not Parkinson's, which levodopa doesn't help. 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 Continue use of walker. 07/2024 increase donepezil to 10, PT for balance. HPI Current Issues Has had a couple episodes diagnosed as TIAs since the last visit - Becomes unresponsive, loss of feeling / motion in the right arm - Eyes open, no shaking, left face seemed to sag a bit - Lasts minutes, by the time getting to the hospital she is improved Two episodes in October diagnosed as TIA at [facility] Donepezil increase led to diarrhea so back down to 5 mg Weight is stable Has had 2 falls [place] and then one recently in the bedroom getting out of bed. Current Outpatient Medications Medication Sig Dispense Refill albuterol HFA (PROVENTIL HFA, VENTOLIN HFA) 90 mcg/actuation inhaler Inhale 2 puffs as instructed every 4 hours as needed for wheezing/shortness of breath. 1 each 1 benzonatate (TESSALON PERLE) 100 mg capsule Take 1 capsule by mouth three times a day as needed for cough for up to 12 doses. 12 capsule 0 atenolol (TENORMIN) 25 mg tablet Take 1 tablet by mouth every other day. gabapentin (NEURONTIN) 300 mg capsule Take 1 capsule by mouth three times a day for 180 days. 90 capsule 5 mirabegron (MYRBETRIQ) 50 mg Tb24 Take 1 tablet by mouth once daily. 30 tablet 5 PARoxetine (PAXIL) 10 mg tablet Take 1 tablet by mouth once daily. 90 tablet 3 donepezil (ARICEPT) 10 mg tablet Take 1 tablet by mouth once daily. 90 tablet 3 atorvastatin (LIPITOR) 80 mg tablet Take 1 tablet by mouth daily at bedtime. 90 tablet 3 nitroglycerin sublingual (NITROQUICK) 0.4 mg SL tablet Dissolve 1 tablet under the tongue as needed. FOR CHEST PAIN. IF NO RELIEF CALL 911 25 tablet 0 triamcinolone acetonide (NASACORT AQ) 55 mcg nasal inhaler Use 2 Sprays in the nose once daily. CPAP CPAP mask and other supplies as needed. Mask per pt preference, tubing, filters, heated humidity, lifetime supplies. Dx: JL on CPAP. G47.33. 1 Device 0 Cholecalciferol, Vitamin D3, 2,000 unit cap Take 2 capsules by mouth once daily. 0 ASPIRIN 81 MG TAB once daily 0 No current facility-administered medications for this visit. Objective OBJECTIVE 02/27/25 1019 BP: 123/56 BP Site: Left Arm BP Position: Sitting BP Cuff Size: Regular Adult Pulse: (!) 51 SpO2: 97% Weight: 70.7 kg (155 lb 13.8 oz) General: General Appearance: Well appearing, alert, in no acute distress, well-hydrated, well nourished. Head: Normocephalic Neck: Supple Neurologic Exam: She is alert. Reg 11/28 [facility], February ? 2024, Mon, age 85, attention intact, recall impaired. Affect is appropriate. Cranial Nerves: Extraocular movements show full and smooth pursuits. No nystagmus. Visual petersen are full to confrontation. Facial activation is symmetric. Hearing is only mildly impaired today. There is no hypomimia. There is no hypophonia. There is no dysarthria. Tongue is midline. Palate elevates symmetrically. Shoulder shrug is normal. Motor: Muscle bulk is normal. Muscle power is full. Mild R>L bradykinesia. Mild bilateral rest tremor, subtle postural re-emergent tremor. Subtle RUE rigidity. Sensory: Vibration absent ankles present knees Coordination: Finger to nose is smooth without ataxia. Gait/station: Wider base, uses walker for support, decreased stride length, minimally stooped, romberg positive even with eyes open. DATA REVIEW Actual films/image/tracing reviewed and summarized as follows: n/a Old records reviewed and summarized as follows: Re (more content not included)... [facility] 02-27-2025 History of Presen t illness Narrative FOLLOW UP NOTE Subjective Mattie Herron is a 85 year old female who presents for follow up. 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 Her examination demonstrates severe hearing loss, disorientation, impaired recall, R>L mild parkinsonism, LE numbness, and sensory ataxic gait. 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 Probably Alzheimer's based on pattern but also has severe hearing loss and she is on oxybutynin which could be contributing. Offered MRI Brain, deferred. Start donepezil 5 mg daily. Encouraged activity. Ask urology about alternative bladder medications. For Pism, would just recommend observation for now. Mild symptoms not impacting function. Gait is from sensory ataxia not Parkinson's, which levodopa doesn't help. 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 Continue use of walker. 07/2024 increase donepezil to 10, PT for balance. HPI Current Issues Has had a couple episodes diagnosed as TIAs since the last visit - Becomes unresponsive, loss of feeling / motion in the right arm - Eyes open, no shaking, left face seemed to sag a bit - Lasts minutes, by the time getting to the hospital she is improved Two episodes in October diagnosed as TIA at [facility] Donepezil increase led to diarrhea so back down to 5 mg Weight is stable Has had 2 falls - [place] and then one recently in the bedroom getting out of bed. Current Outpatient Medications Medication Sig Dispense Refill albuterol HFA (PROVENTIL HFA, VENTOLIN HFA) 90 mcg/actuation inhaler Inhale 2 puffs as instructed every 4 hours as needed for wheezing/shortness of breath. 1 each 1 benzonatate (TESSALON PERLE) 100 mg capsule Take 1 capsule by mouth three times a day as needed for cough for up to 12 doses. 12 capsule 0 atenolol (TENORMIN) 25 mg tablet Take 1 tablet by mouth every other day. gabapentin (NEURONTIN) 300 mg capsule Take 1 capsule by mouth three times a day for 180 days. 90 capsule 5 mirabegron (MYRBETRIQ) 50 mg Tb24 Take 1 tablet by mouth once daily. 30 tablet 5 PARoxetine (PAXIL) 10 mg tablet Take 1 tablet by mouth once daily. 90 tablet 3 donepezil (ARICEPT) 10 mg tablet Take 1 tablet by mouth once daily. 90 tablet 3 atorvastatin (LIPITOR) 80 mg tablet Take 1 tablet by mouth daily at bedtime. 90 tablet 3 nitroglycerin sublingual (NITROQUICK) 0.4 mg SL tablet Dissolve 1 tablet under the tongue as needed. FOR CHEST PAIN. IF NO RELIEF CALL 911 25 tablet 0 triamcinolone acetonide (NASACORT AQ) 55 mcg nasal inhaler Use 2 Sprays in the nose once daily. CPAP CPAP mask and other supplies as needed. Mask per pt preference, tubing, filters, heated humidity, lifetime supplies. Dx: JL on CPAP. G47.33. 1 Device 0 Cholecalciferol, Vitamin D3, 2,000 unit cap Take 2 capsules by mouth once daily. 0 ASPIRIN 81 MG TAB once daily 0 No current facility-administered medications for this visit. Objective OBJECTIVE 02/27/25 1019 BP: 123/56 BP Site: Left Arm BP Position: Sitting BP Cuff Size: Regular Adult Pulse: (!) 51 SpO2: 97% Weight: 70.7 kg (155 lb 13.8 oz) General: General Appearance: Well appearing, alert, in no acute distress, well-hydrated, well nourished. Head: Normocephalic Neck: Supple Neurologic Exam: She is alert. Reg 11/28 [facility], February ? 2024, Mon, age 85, attention intact, recall impaired. Affect is appropriate. Cranial Nerves: Extraocular movements show full and smooth pursuits. No nystagmus. Visual petersen are full to confrontation. Facial activation is symmetric. Hearing is only mildly impaired today. There is no hypomimia. There is no hypophonia. There is no dysarthria. Tongue is midline. Palate elevates symmetrically. Shoulder shrug is normal. Motor: Muscle bulk is normal. Muscle power is full. Mild R>L bradykinesia. Mild bilateral rest tremor, subtle postural re-emergent tremor. Subtle RUE rigidity. Sensory: Vibration absent ankles present knees Coordination: Finger to nose is smooth without ataxia. Gait/station: Wider base, uses walker for support, decreased stride length, minimally stooped, romberg positive even with eyes open. DATA REVIEW Actual films/image/tracing reviewed and summarized as follows: n/a Old records reviewed and summarized as follows: Reviewed partial records from two 10/2024 admissions to [facility] MRI Brain 11/10/24 1. No acute intracranial process. 2. Extra-axial dural-based lesion involving the left frontal region laterally measuring 16 mm likely relates to a meningioma. However, recommend further evaluation with MRI of the brain with IV contrast. 3. Chronic small vessel ischemic disease. 4. Atrophy. CTA H/N normal TTE normal 07/2024 labs B12 800, MMA pending, A1c 6, TSH 3.5, FT4 1.2 04/2024 labs Folate 7.8, B12 152, SPEP neg, ESR 2, Cu 80, TSH 5.1 CTH 08/03/09 normal Reviewed prior neuro records EMG 12/27/21 1. 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 2. Chronic motor axon loss changes in muscles within the bilateral L2-L5 myotomes consistent with with chronic radiculopathies affecting these levels, mild in degree at L2 and more moderate to severe at L3-L5. This is accompanied by findings of active axon loss at L5 bilaterally and L3/4 on the left. 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 Her examination demonstrates hearing loss, mild disorientation, impaired recall, R>L mild rest tremor, LE numbness, and sensory ataxic gait. 1. Episodes of short-lasting neurologic symptoms - Two episodes diagnosed as TIA though included symptoms that would be more concerning for seizure, such as unresponsiveness. - Will get EEG - Start Keppra titrate to 500 mg BID, explained possible side effects. Would use lamotrigine next if issues 2. Dementia suspected AD, B12 def - Side effects to donepezil 10 back to 5 mg daily, sent in refills of this 3. Sensory ataxia from LE numbness - Supportive device 4. Mild R>L parkinsonism - Still without current need for medication, observe Follow-up: 6 months, they are having trouble coming up for appointments and looking to transfer to [facility], explained providers there Risks & Side Effects of Newly Prescribed Medication, Discussed with Patient: YES Tram Santana MD [facility] Neurology documented in this encounter [facility] 02-23-2025 Note HNO ID: [id number] Author: MATHEUS FAJARDO MD Service: ? Author Type: Physician Type: Progress Notes Filed: 02/23/2025 09:55 Note Text: This note was created using [employer]. Subjective Mattie Herron is a 85 year old female here with [facility]. She had no new concerns. She was seeing [facility] for carotid disease with history of TIA. They had not yet established care with Dr. Holloway as discussed at her TIA follow up in October. Medications were unchanged. She had no new concerns. Review of Systems Constitutional: Negative for activity change, appetite change and unexpected weight change. Respiratory: Negative for cough, shortness of breath and wheezing. Cardiovascular: Negative for chest pain, palpitations and leg swelling. Gastrointestinal: Negative for abdominal pain, constipation and diarrhea. Genitourinary: Positive for urgency. Musculoskeletal: Positive for gait problem (chronic). Neurological: Negative for dizziness, facial asymmetry and headaches. ACTIVE PROBLEM LIST Coronary Atherosclerosis Mixed Hyperlipidemia Esophageal Reflux Anxiety State Chronic Rhinitis Tobacco Use Disorder Aortic Valve Sclerosis Bilateral Carotid Artery Stenosis Osteoporosis, Post-Menopausal Ddd (Degenerative Disc Disease), Lumbar Vitamin D Deficiency Jl On Cpap Primary Hypertension Diabetic Peripheral Neuropathy Associated With Type 2 Diabetes Mellitus (Hcc) Polycythemia Urgency Incontinence Gait Abnormality Moderate Dementia Without Behavioral Disturbance, Psychotic Disturbance, Mood Disturbance, Or Anxiety (Hcc) Cad S/P Percutaneous Coronary Angioplasty Pad (Peripheral Artery Disease) Nonrheumatic Aortic Valve Stenosis S/P Right Coronary Artery (Rca) Stent Placement Parkinson's Disease Without Dyskinesia Or Fluctuating Manifestations (Hcc) Meningioma (Hcc) Tia (Transient Ischemic Attack) Social History Tobacco Use Smoking status: Every Day Current packs/day: 0.66 Average packs/day: 0.7 packs/day for 58.8 years (38.8 ttl pk-yrs) Types: Cigarettes Start date: 06/30/1966 Smokeless tobacco: Never Vaping Use Vaping status: Never Used Substance Use Topics Alcohol use: No Drug use: No Current Outpatient Medications Medication Sig albuterol HFA (PROVENTIL HFA, VENTOLIN HFA) 90 mcg/actuation inhaler Inhale 2 puffs as instructed every 4 hours as needed for wheezing/shortness of breath. benzonatate (TESSALON PERLE) 100 mg capsule Take 1 capsule by mouth three times a day as needed for cough for up to 12 doses. atenolol (TENORMIN) 25 mg tablet Take 1 tablet by mouth every other day. gabapentin (NEURONTIN) 300 mg capsule Take 1 capsule by mouth three times a day for 180 days. mirabegron (MYRBETRIQ) 50 mg Tb24 Take 1 tablet by mouth once daily. PARoxetine (PAXIL) 10 mg tablet Take 1 tablet by mouth once daily. donepezil (ARICEPT) 10 mg tablet Take 1 tablet by mouth once daily. atorvastatin (LIPITOR) 80 mg tablet Take 1 tablet by mouth daily at bedtime. nitroglycerin sublingual (NITROQUICK) 0.4 mg SL tablet Dissolve 1 tablet under the tongue as needed. FOR CHEST PAIN. IF NO RELIEF CALL 911 triamcinolone acetonide (NASACORT AQ) 55 mcg nasal inhaler Use 2 Sprays in the nose once daily. CPAP CPAP mask and other supplies as needed. Mask per pt preference, tubing, filters, heated humidity, lifetime supplies. Dx: JL on CPAP. G47.33. Cholecalciferol, Vitamin D3, 2,000 unit cap Take 2 capsules by mouth once daily. ASPIRIN 81 MG TAB once daily No current facility-administered medications for this visit. Objective BP 100/58 Pulse 60 Resp 18 Ht 165.1 cm (5' 5) Wt 69.6 kg (153 lb 7 oz) BMI 25.53 kg/m? Physical Exam Constitutional: General: She is not in acute distress. HENT: Nose: No rhinorrhea. Eyes: Extraocular Movements: Extraocular movements intact. Conjunctiva/sclera: Conjunctivae normal. Cardiovascular: Rate and Rhythm: Normal rate and regular rhythm. Heart sounds: S1 normal and S2 normal. Murmur heard. Systolic murmur is present with a grade of 2/6. Comments: MAGDA at the base. Pulmonary: Effort: No respiratory distress. Breath sounds: No wheezing or rales. Abdominal: Palpations: Abdomen is soft. Tenderness: There is no abdominal tenderness. Musculoskeletal: Right lower le+ Pitting Edema present. Left lower le+ Pitting Edema present. Neurological: General: No focal deficit present. Mental Status: She is alert. Mental status is at baseline. Gait: Gait abnormal. Comments: Using rollator walker Assessment and Plan 1. Medicare annual wellness visit, subsequent - ICD9: V70.0, ICD10: Z00.00 (primary diagnosis) - See wellness visit. 2. Polycythemia - ICD9: 238.4, ICD10: D75.1 Monitored. - COMPLETE BLOOD COUNT 3. Mixed hyperlipidemia - ICD9: 272.2, ICD10: E78.2 - Control undetermined, due for labs - Continue current medications - COMPREHENSIVE METABOLIC [place] (more content not included)... [facility] 02-23-2025 History of Presen t illness Narrative This note was created using [employer]. Subjective Mattie Herron is a 85 year old female here with [facility]. She had no new concerns. She was seeing [facility] for carotid disease with history of TIA. They had not yet established care with Dr. Holloway as discussed at her TIA follow up in October. Medications were unchanged. She had no new concerns. Review of Systems Constitutional: Negative for activity change, appetite change and unexpected weight change. Respiratory: Negative for cough, shortness of breath and wheezing. Cardiovascular: Negative for chest pain, palpitations and leg swelling. Gastrointestinal: Negative for abdominal pain, constipation and diarrhea. Genitourinary: Positive for urgency. Musculoskeletal: Positive for gait problem (chronic). Neurological: Negative for dizziness, facial asymmetry and headaches. ACTIVE PROBLEM LIST Coronary Atherosclerosis Mixed Hyperlipidemia Esophageal Reflux Anxiety State Chronic Rhinitis Tobacco Use Disorder Aortic Valve Sclerosis Bilateral Carotid Artery Stenosis Osteoporosis, Post-Menopausal Ddd (Degenerative Disc Disease), Lumbar Vitamin D Deficiency Jl On Cpap Primary Hypertension Diabetic Peripheral Neuropathy Associated With Type 2 Diabetes Mellitus (Hcc) Polycythemia Urgency Incontinence Gait Abnormality Moderate Dementia Without Behavioral Disturbance, Psychotic Disturbance, Mood Disturbance, Or Anxiety (Hcc) Cad S/P Percutaneous Coronary Angioplasty Pad (Peripheral Artery Disease) Nonrheumatic Aortic Valve Stenosis S/P Right Coronary Artery (Rca) Stent Placement Parkinson's Disease Without Dyskinesia Or Fluctuating Manifestations (Hcc) Meningioma (Hcc) Tia (Transient Ischemic Attack) Social History Tobacco Use Smoking status: Every Day Current packs/day: 0.66 Average packs/day: 0.7 packs/day for 58.8 years (38.8 ttl pk-yrs) Types: Cigarettes Start date: 06/30/1966 Smokeless tobacco: Never Vaping Use Vaping status: Never Used Substance Use Topics Alcohol use: No Drug use: No Current Outpatient Medications Medication Sig albuterol HFA (PROVENTIL HFA, VENTOLIN HFA) 90 mcg/actuation inhaler Inhale 2 puffs as instructed every 4 hours as needed for wheezing/shortness of breath. benzonatate (TESSALON PERLE) 100 mg capsule Take 1 capsule by mouth three times a day as needed for cough for up to 12 doses. atenolol (TENORMIN) 25 mg tablet Take 1 tablet by mouth every other day. gabapentin (NEURONTIN) 300 mg capsule Take 1 capsule by mouth three times a day for 180 days. mirabegron (MYRBETRIQ) 50 mg Tb24 Take 1 tablet by mouth once daily. PARoxetine (PAXIL) 10 mg tablet Take 1 tablet by mouth once daily. donepezil (ARICEPT) 10 mg tablet Take 1 tablet by mouth once daily. atorvastatin (LIPITOR) 80 mg tablet Take 1 tablet by mouth daily at bedtime. nitroglycerin sublingual (NITROQUICK) 0.4 mg SL tablet Dissolve 1 tablet under the tongue as needed. FOR CHEST PAIN. IF NO RELIEF CALL 911 triamcinolone acetonide (NASACORT AQ) 55 mcg nasal inhaler Use 2 Sprays in the nose once daily. CPAP CPAP mask and other supplies as needed. Mask per pt preference, tubing, filters, heated humidity, lifetime supplies. Dx: JL on CPAP. G47.33. Cholecalciferol, Vitamin D3, 2,000 unit cap Take 2 capsules by mouth once daily. ASPIRIN 81 MG TAB once daily No current facility-administered medications for this visit. Objective BP 100/58 Pulse 60 Resp 18 Ht 165.1 cm (5' 5) Wt 69.6 kg (153 lb 7 oz) BMI 25.53 kg/m Physical Exam Constitutional: General: She is not in acute distress. HENT: Nose: No rhinorrhea. Eyes: Extraocular Movements: Extraocular movements intact. Conjunctiva/sclera: Conjunctivae normal. Cardiovascular: Rate and Rhythm: Normal rate and regular rhythm. Heart sounds: S1 normal and S2 normal. Murmur heard. Systolic murmur is present with a grade of 2/6. Comments: MAGDA at the base. Pulmonary: Effort: No respiratory distress. Breath sounds: No wheezing or rales. Abdominal: Palpations: Abdomen is soft. Tenderness: There is no abdominal tenderness. Musculoskeletal: Right lower le+ Pitting Edema present. Left lower le+ Pitting Edema present. Neurological: General: No focal deficit present. Mental Status: She is alert. Mental status is at baseline. Gait: Gait abnormal. Comments: Using rollator walker Assessment and Plan 1. Medicare annual wellness visit, subsequent - ICD9: V70.0, ICD10: Z00.00 (primary diagnosis) - See wellness visit. 2. Polycythemia - ICD9: 238.4, ICD10: D75.1 Monitored. - COMPLETE BLOOD COUNT 3. Mixed hyperlipidemia - ICD9: 272.2, ICD10: E78.2 - Control undetermined, due for labs - Continue current medications - COMPREHENSIVE METABOLIC PANEL - LIPID PANEL, NONFASTING 4. Nonrheumatic aortic valve stenosis - ICD9: 424.1, ICD10: I35.0 - stable. To see cardiology. 5. 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 (HCC) - ICD9: 332.0, ICD10: G20.A1 - Stable. Monitored by neurology. Keep neurology appointment for now, pending transfer to local neurologist. 6. JL on CPAP - ICD9: 327.23, ICD10: G47.33 Is patient is reporting good quality sleep with regular CPAP/APAP use? Yes. Continue current treatment settings. Refill supplies when needed. DME supplier: on file. 7. Osteoporosis, post-menopausal - ICD9: 733.01, ICD10: M81.0 - Reviewed the need for Calcium and Vitamin D supplements and weight bearing exercise as tolerated - They declined treatment for this. 8. 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) - ICD9: 250.60, 357.2, ICD10: E11.42 - Diet Controlled - HEMOGLOBIN A1C 9. Urgency incontinence - ICD9: 788.31, ICD10: N39.41 - Using incontinence supplies. Matheus Fajardo MD Images from the original note were not included. Mattie Herron is a 85 year old female here for a Medicare wellness visit. Medicare Health Risk Assessment General Health Fair Exercise: Minutes/Day 0 min Exercise: Days/Week 0 days Alcohol: Daily Use Never Alcohol: Drinks/Day Patient does not drink Alcohol: 6 or more drinks Never Feel off balance Yes Concerns: Teeth/Dentures No Concerns: Sexual function No Troubled by feelings None of the above Frequency: Eating healthy diet Not at all ADLs requiring help Grocery shopping; Cooking; Housework; Driving; Taking medications; Handling finances; Managing urine leakage Safety precautions in home/vehicle Yes Smoke, vape, chews tobacco Yes, but I'm not ready to quit Difficulty hearing Yes, I wear a hearing aid Difficulty seeing No Current Providers Specialists: I have reviewed specialist-related care of the patient in the medical record. Current care team: Patient Care Team: Matheus Fajardo MD as PCP - General Cookie Sewell, CONTACT WORKER LITHOGRAPHY.OUTSIDE SALES ACCOUNT REPRESENTATIVE as Telegraphic Typewriter Operator (Internal Medicine) Tram Santana MD (Neurology) Maribell Hill MD (Cardiology) Outside specialists seen: Laura Mancuso PAC ([facility]) Ammy Linares OD ([facility]) Medical/Family history review Reviewed and updated problem list, medical/surgical/family/social history, medications, and allergies. Opioid use review Opioid Medications (last 90 days) No data to display Anxiety/Depression screening Recommendation: no further intervention at this time Cognitive screening Cognitive screening reviewed and Patient has known cognitive impairment. Functional Observation Was the patient's Timed Up & Go test unsteady or >= 12 seconds? Yes Advance Care Planning Patient did not wish or was not able to name a surrogate decision maker or provide an advance care plan Measurements BP 100/58 Pulse 60 Resp 18 Ht 165.1 cm (5' 5) Wt 69.6 kg (153 lb 7 oz) BMI 25.53 kg/m Vision Screening: Follows with optometry/ophthalmology Right: 20/50 Left: 20/ 30 Both: 20/50 Assessment/Plan Medicare annual wellness visit, subsequent (Z00.00) - Counseled on healthy diet and regular exercise - Fall avoidance information provided - Personalized prevention plan provided - Smoking cessation encouraged; discussed risks to health and quitting strategies. Patient is not ready to quit documented in this encounter [facility] 02-23-2025 Instructions Matheus Fajardo MD - 02/23/2025 9:37 AM EDT Screening schedule The following prevention plan is recommended: DTaP,Tdap,Td Vaccine(1 - Tdap) due on 06/09/2006 Advance Directive Discussion due on 09/28/2024 Dilated Retinal Exam due on 12/28/2024 HbA1C due on 02/19/2025 LDL Cholesterol due on 02/17/2025 WHAT YOU CAN DO TO PREVENT FALLS Many falls can be prevented. By making some changes, you can lower your chances of falling. Four things YOU can do to prevent falls for you* and your caregiver 1. Begin a regular exercise program Exercise is one of the most important ways to lower your chances of falling. It makes you stronger and helps you feel better. Exercises that improve balance and coordination (like Naeem Chi) are the most helpful. Lack of exercise leads to weakness and increases your chances of falling. Ask your doctor or health care provider about the best type of exercise program for you. 2. Have your health care provider review your medicines Have your doctor or pharmacist review all the medicines you take, even [id number] medicines. As you get older, the way medicines work in your body can change. Some medicines, or combinations of medicines, can make you sleepy or dizzy and can cause you to fall. 3. Have your vision checked Have your eyes checked by an eye doctor at least once a year. You may be wearing the wrong glasses or have a condition like glaucoma or cataracts that limits your vision. Poor vision can increase your chances of falling. 4. Make your home safer About half of all falls happen at home. To make your home safer: Remove things you can trip over (like papers, books, clothes, and shoes) from stairs and places where you walk. Remove small throw rugs or use double-sided tape to keep the rugs from slipping. Keep items you use often in cabinets you can reach easily without using a step stool. Have grab bars put in next to your toilet and in the tub or shower. Use non-slip mats in the bathtub and on shower floors. Improve the lighting in your home. As you get older, you need brighter lights to see well. Hang light-weight curtains or shades to reduce glare. Have handrails and lights put in on all staircases. Wear shoes both inside and outside the house. Avoid going barefoot or wearing slippers. For more information, contact: Centers for Disease Control and Prevention www.cdc.gov/injury * This information may not apply if you have certain medical conditions. documented in this encounter [facility] 02-23-2025 Note HNO ID: [id number] Author: MATHEUS FAJARDO MD Service: ? Author Type: Physician Type: Progress Notes Filed: 02/23/2025 09:55 Note Text: Mattie Herron is a 85 year old female here for a Medicare wellness visit. Medicare Health Risk Assessment General Health Fair Exercise: Minutes/Day 0 min Exercise: Days/Week 0 days Alcohol: Daily Use Never Alcohol: Drinks/Day Patient does not drink Alcohol: 6 or more drinks Never Feel off balance Yes Concerns: Teeth/Dentures No Concerns: Sexual function No Troubled by feelings None of the above Frequency: Eating healthy diet Not at all ADLs requiring help Grocery shopping; Cooking; Housework; Driving; Taking medications; Handling finances; Managing urine leakage Safety precautions in home/vehicle Yes Smoke, vape, chews tobacco Yes, but I'm not ready to quit Difficulty hearing Yes, I wear a hearing aid Difficulty seeing No Current Providers Specialists: I have reviewed specialist-related care of the patient in the medical record. Current care team: Patient Care Team: Matheus Fajardo MD as PCP - General Cookie Sewell, CONTACT WORKER LITHOGRAPHY.OUTSIDE SALES ACCOUNT REPRESENTATIVE as Telegraphic Typewriter Operator (Internal Medicine) Tram Santana MD (Neurology) Maribell Hill MD (Cardiology) Outside specialists seen: Laura Mancuso PAC ([facility]) Ammy Linares OD ([facility]) Medical/Family history review Reviewed and updated problem list, medical/surgical/family/social history, medications, and allergies. Opioid use review Opioid Medications (last 90 days) No data to display Anxiety/Depression screening Recommendation: no further intervention at this time Cognitive screening Cognitive screening reviewed and Patient has known cognitive impairment. Functional Observation Was the patient's Timed Up AND Go test unsteady or >= 12 seconds? Yes Advance Care Planning Patient did not wish or was not able to name a surrogate decision maker or provide an advance care plan Measurements BP 100/58 Pulse 60 Resp 18 Ht 165.1 cm (5' 5) Wt 69.6 kg (153 lb 7 oz) BMI 25.53 kg/m? Vision Screening: Follows with optometry/ophthalmology Right: 2050 Left: 20/ 30 Both: Assessment/Plan Medicare annual wellness visit, subsequent (Z00.00) - Counseled on healthy diet and regular exercise - Fall avoidance information provided - Personalized prevention plan provided - Smoking cessation encouraged; discussed risks to health and quitting strategies. Patient is not ready to quit [facility] 01-21-2025 Note HNO ID: [id number] Author: ANDRIA BOSTON MD Service: ? Author Type: Physician Type: Progress Notes Filed: 01/21/2025 11:39 Note Text: This note was created using Starteedriter. Subjective Mattie Herron is a 85 year old female. Patient presents with: Cough: X1 month with lack of energy AND fatigue Kami is a 85-year-old female presenting with a persistent cough and intermittent diarrhea. She is accompanied by a family member who is providing history on her behalf. Kami has been experiencing a persistent cough for approximately 1 month, characterized by episodes of deep coughing lasting about 5 minutes, during which she expectorates green sputum. The cough has reportedly worsened over the past 2 weeks. She was evaluated at an urgent care clinic recently, where she was prescribed a cough suppressant, which has not provided relief. Prior to this, she completed a 10-day course of doxycycline in early November, which seemed to improve her symptoms temporarily. However, the cough never fully resolved and has been persistent since then. She reports mild sinus pressure and post-nasal drip, as well as occasional wheezing and chest tightness during coughing episodes. Deep breaths also trigger coughing. She denies fevers, chills, or other signs of acute infection. She has a history of allergies, including itchy eyes, rhinorrhea, and sneezing, and was exposed to high pollen levels during a recent trip to [place]. Additionally, Kami reports intermittent diarrhea occurring approximately every 3 days, with sudden onset and no clear triggers. She denies constipation. Her fluid intake primarily consists of caffeinated beverages, and she drinks minimal water. She has a history of prescribed inhalers, which have not been used. She is currently taking Aricept. 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 [place], RCA stent November 2003. Coronary atherosclerosis of unspecified type of vessel, [place] or graft 07/07/2005 [place], PT[place] 1988. [place], RCA stent November 2003. DDD (degenerative disc disease), lumbar 04/19/2014 Dr. Galen Sanchez, pain management Diaphragmatic hernia without mention of obstruction or gangrene Diverticulosis of colon (without mention of hemorrhage) Esophageal reflux Esophagitis, unspecified Essential hypertension 06/10/2016 Excessive sweating, local 05/19/2019 Hemangioma of liver 03/12/2007 Mixed hyperlipidemia 07/07/2005 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 behavioral disturbance, psychotic disturbance, mood disturbance, or anxiety ([facility]) 10/15/2023 Nocturnal leg cramps 05/19/2019 JL (obstructive sleep apnea) 10/16/2011 NAZANIN Tierney for CPAP Osteoporosis, post-menopausal 09/14/2012 Other microscopic hematuria 11/04/2017 Dr. Galen Waters. 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) 08/22/2024 Polycythemia 10/30/2017 Postmenopausal atrophic vaginitis Tremor, essential 06/11/2020 Type II or unspecified type diabetes mellitus without mention of complication, not stated as uncontrolled 10/01/2006 Ureterolithiasis 11/12/2010 Venous insufficiency of both lower extremities 11/03/2015 Current Outpatient Medications Medication Sig benzonatate (TESSALON PERLE) 100 mg capsule Take 1 capsule by mouth three times a day as needed for cough for up to 12 doses. atenolol (TENORMIN) 25 mg tablet Take 1 tablet by mouth every other day. gabapentin (NEURONTIN) 300 mg capsule Take 1 capsule by mouth three times a day for 180 days. mirabegron (MYRBETRIQ) 50 mg Tb24 Take 1 tablet by mouth once daily. PARoxetine (PAXIL) 10 mg tablet Take 1 tablet by mouth once daily. donepezil (ARICEPT) 10 mg tablet Take 1 tablet by mouth once daily. atorvastatin (LIPITOR) 80 mg tablet Take 1 tablet by mouth daily at bedtime. nitroglycerin sublingual (NITROQUICK) 0.4 mg SL tablet Dissolve 1 tablet under the tongue as needed. FOR CHEST PAIN. IF NO RELIEF CALL 911 triamcinolone acetonide (NASACORT AQ) 55 mcg nasal inhaler Use 2 Sprays in the nose once daily. CPAP CPAP mask and other supplies as needed. Mask per pt preference, tubing, filters, heated humidity, lifetime supplies. Dx: JL on CPAP. G47.33. Cholecalciferol, Vitamin D3, 2,000 unit cap Take 2 capsules by mouth once daily. ASPIRIN 81 MG TAB once daily albuterol HFA (PROVENTIL HFA, VENTOLIN HFA) 90 mcg/actuation inhaler Inhale 2 puffs as instructed every 4 hours as needed for wheezing/shortness of b (more content not included)... [facility] 01-18-2025 Miscellaneous Notes I did attempt to contact patient to inform them that the chest x-ray was negative showing no signs of bacterial pneumonia. I do suspect that symptoms are more consistent with a postviral cough and I recommend that she use the cough medicine as prescribed and follow-up with her family doctor. 1330-I was able to make contact with and explained results. Family comfortable with plan. documented in this encounter [facility] 01-18-2025 Telephone encounter Note I did attempt to contact patient to inform them that the chest x-ray was negative showing no signs of bacterial pneumonia. I do suspect that symptoms are more consistent with a postviral cough and I recommend that she use the cough medicine as prescribed and follow-up with her family doctor. 1330-I was able to make contact with and explained results. Family comfortable with plan. [facility] 01-18-2025 Note SARS-COV-2 (AGENT OF COVID-19) RNA: Not detected INFLUENZA A RNA: Not detected INFLUENZA B RNA: Not detected RESPIRATORY SYNCYTIAL VIRUS (RSV) RNA: Not detected [facility] Comment on above: Performed By: #### [id number] #### [facility] CLIA [id number] [address] [place] [address] 01-18-2025 Note HNO ID: [id number] Author: DOUGLAS HOWE RT(R) Service: ? Author Type: Career Technical Supervisor Type: Progress Notes Filed: 01/18/2025 11:07 Note Text: Radiology Service Progress Note PATIENT NAME: Mattie Herron DATE OF SERVICE: January 18, 2025 TIME: 10:51 AM PATIENT IDENTITY VERIFICATION COMPLETED USING TWO (2) IDENTIFIERS: Name and Date of confirmed by patient verbally. FALL SCREENING: Has the patient had 2 falls in the last year or 1 fall with injury or currently using an Ambulatory Assistive Device (Walker, Cane, Wheelchair, Crutches, etc.)? No PATIENT GENDER DATA: Assigned female at . status: : No status: NO. PATIENT RELEVANT IMPLANT DATA REVIEWED: Yes PATIENT PRESENTS WITH AN IMPLANTABLE OR ATTACHED SLURRY TANK OPERATOR: No RADIOLOGY DEPARTMENT: General X-ray: Exam(s) Completed: Chest X-Ray PERIPHERAL IV DATA: Not applicable SIGNED BY: RT Mandeep(R) January 18, 2025 10:51 AM [facility] 01-18-2025 Note HNO ID: [id number] Author: LORAINE SWIFT APRN.OUTSIDE SALES ACCOUNT REPRESENTATIVE Service: ? Author Type: Nurse Practitioner Type: Progress Notes Filed: 01/18/2025 11:39 Note Text: This note was created using Starteedriter. Subjective Mattie Herron is a 85 year old female. HPI About a month ago patient was seen in urgent care in [place] where she was diagnosed with bronchitis and given prescription for doxycycline and Mucinex. states that symptoms seem to improve however over the last week her cough has returned. He otherwise denies any fever. He does state that she is tugging at her throat a little bit but otherwise she has not mentioned throat pain. Patient does have a history of dementia and is not a great historian. Review of Systems As above Objective BP 120/68 Pulse 70 Temp 37.4 ?C (99.3 ?F) Resp 18 Wt 69.4 kg (153 lb) SpO2 97% BMI 23.96 kg/m? Physical Exam Vitals and nursing note reviewed. Constitutional: General: She is not in acute distress. Appearance: Normal appearance. She is not ill-appearing. HENT: Head: Normocephalic. Mouth/Throat: Mouth: Mucous membranes are moist. Eyes: Conjunctiva/sclera: Conjunctivae normal. Cardiovascular: Rate and Rhythm: Normal rate and regular rhythm. Pulmonary: Effort: Pulmonary effort is normal. Breath sounds: Normal breath sounds. Musculoskeletal: General: Normal range of motion. Cervical back: Normal range of motion. Skin: General: Skin is warm and dry. Neurological: General: No focal deficit present. Mental Status: She is alert. Psychiatric: Mood and Affect: Mood normal. Behavior: Behavior normal. Assessment and Plan ASSESSMENT/PLAN: 1. Acute cough - ICD9: 786.2, ICD10: R05.1 Chest x-ray today showed no acute abnormalities. I did review with patient and family that symptoms are most likely postviral in origin. I did recommend close follow-up with PCP and patient was given a prescription for Tessalon Perles for cough. -Flu and COVID testing was performed however as symptoms have been ongoing for at least a week there is no specific treatment indicated. - BENZONATATE 100 MG CAPSULE - XR CHEST 2V FRONTAL/LAT - COVID AND INFLUENZA A/B AND RSV PCR, ROUTINE Loraine Swift APRN.CNP [facility] 01-18-2025 History of Presen t illness Narrative This note was created using Woven [employer]er. Subjective Mattie Herron is a 85 year old female. HPI About a month ago patient was seen in urgent care in [place] where she was diagnosed with bronchitis and given prescription for doxycycline and Mucinex. states that symptoms seem to improve however over the last week her cough has returned. He otherwise denies any fever. He does state that she is tugging at her throat a little bit but otherwise she has not mentioned throat pain. Patient does have a history of dementia and is not a great historian. Review of Systems As above Objective BP 120/68 Pulse 70 Temp 37.4 C (99.3 F) Resp 18 Wt 69.4 kg (153 lb) SpO2 97% BMI 23.96 kg/m Physical Exam Vitals and nursing note reviewed. Constitutional: General: She is not in acute distress. Appearance: Normal appearance. She is not ill-appearing. HENT: Head: Normocephalic. Mouth/Throat: Mouth: Mucous membranes are moist. Eyes: Conjunctiva/sclera: Conjunctivae normal. Cardiovascular: Rate and Rhythm: Normal rate and regular rhythm. Pulmonary: Effort: Pulmonary effort is normal. Breath sounds: Normal breath sounds. Musculoskeletal: General: Normal range of motion. Cervical back: Normal range of motion. Skin: General: Skin is warm and dry. Neurological: General: No focal deficit present. Mental Status: She is alert. Psychiatric: Mood and Affect: Mood normal. Behavior: Behavior normal. Assessment and Plan ASSESSMENT/PLAN: 1. Acute cough - ICD9: 786.2, ICD10: R05.1 Chest x-ray today showed no acute abnormalities. I did review with patient and family that symptoms are most likely postviral in origin. I did recommend close follow-up with PCP and patient was given a prescription for Tessalon Perles for cough. -Flu and COVID testing was performed however as symptoms have been ongoing for at least a week there is no specific treatment indicated. - BENZONATATE 100 MG CAPSULE - XR CHEST 2V FRONTAL/LAT - COVID & INFLUENZA A/B & RSV PCR, ROUTINE Loraine Swift APRN.CNP documented in this encounter [facility] 12-02-2024 Evaluation note Diagnosis Onset Date Resolution Carotid artery stenosis acute December 02, 2024 3:27pm [facility] Work Phone: [phone]) 521-166503-03-2025 NoteHNO ID: [id number] Author: MARCO FRANK PT Service: ? Author Type: Physical Therapist Type: Progress Notes Filed: 11/28/2024 15:33 Note Text: 11/28/2024 [facility] PHYSICAL THERAPY DISCONTINUANCE OF CARE Plan of Care Period: Start of Care Date: 09/13/24 Last Visit Date: 09/13/2024 Therapy Program: Patient did not return for follow up care as planned. Please refer to last visit note for interventions provided for this episode of care. Assessment: Unable to formally assess goal achievement. Reason for Discontinuation of Care: Patient has not returned to therapy or scheduled additional follow-up appointments. [facility] NoteHNO ID: [id number] Author: MATHEUS FAJARDO MD Service: ? Author Type: Physician Type: Progress Notes Filed: 11/14/2024 15:40 Note Text: This note was created using Starteedriter. Subjective Transitional Care Management Progress Note The patients TCM visit was performed within the 7 days of discharge. Patient's Date of discharge: 11/11/24 Date of initial coordinator contact after discharge: NA Discharge diagnosis: TIA, meningioma, carotid stenosis, metabolic encephalopathy, influenza. Medication review completed Yes Provider Documentation: In follow-up of hospitalization, Mattie Herron is a 84 year old female with the chief complaint of transition of care. I have reviewed the patient?s last hospital course including diagnostic testing performed during this hospitalization, their discharge medications, and my assessment and plan with the patient and spouse present at today?s visit. Mattie was admitted 11/10/24 with acute mental status change, decreased responsiveness. Other findings were dysarthria, left facial droop, influenza. Symptoms resolved and she was back to baseline. Stroke workup and tele-neurology consult was done. Carotid stenosis, meningioma, but no cerebral vascular accident was found. She was discharged to outpatient follow up, neurology follow up and vascular surgery consult. Spouse wants to transfer neurology care to local neurologist, including dementia care as well. It was increasingly difficult to take Mattie out of the house. Review of Systems Constitutional: Negative for appetite change, fatigue and fever. HENT: Negative for congestion and sore throat. Respiratory: Negative for cough and shortness of breath. Cardiovascular: Negative for chest pain, palpitations and leg swelling. Gastrointestinal: Negative for diarrhea, nausea and vomiting. Neurological: Negative for dizziness, facial asymmetry, weakness, numbness and headaches. ACTIVE PROBLEM LIST Coronary Atherosclerosis Mixed Hyperlipidemia Esophageal Reflux Anxiety State Chronic Rhinitis Tobacco Use Disorder Aortic Valve Sclerosis Bilateral Carotid Artery Stenosis Osteoporosis, Post-Menopausal Ddd (Degenerative Disc Disease), Lumbar Vitamin D Deficiency Jl On Cpap Primary Hypertension Diabetic Peripheral Neuropathy Associated With Type 2 Diabetes Mellitus ([facility]) Polycythemia Urgency Incontinence Gait Abnormality Moderate Dementia Without Behavioral Disturbance, Psychotic Disturbance, Mood Disturbance, Or Anxiety ([facility]) Cad S/P Percutaneous Coronary Angioplasty Pad (Peripheral Artery Disease) ([facility]) Nonrheumatic Aortic Valve Stenosis S/P Right Coronary Artery (Rca) Stent Placement Parkinson's Disease Without Dyskinesia Or Fluctuating Manifestations ([facility]) Meningioma ([facility]) Tia (Transient Ischemic Attack) Social History Tobacco Use Smoking status: Every Day Current packs/day: 0.66 Average packs/day: 0.7 packs/day for 58.5 years (38.6 ttl pk-yrs) Types: Cigarettes Start date: 06/30/1966 Smokeless tobacco: Never Vaping Use Vaping status: Never Used Substance Use Topics Alcohol use: No Drug use: No Current Outpatient Medications Medication Sig oseltamivir (TAMIFLU) 6 mg/mL susr oral liquid TAKE 5ML BY MOUTH TWICE DAILY FOR 4 DAYS. DISCARD THE REMAINDER gabapentin (NEURONTIN) 300 mg capsule Take 1 capsule by mouth three times a day for 180 days. mirabegron (MYRBETRIQ) 50 mg Tb24 Take 1 tablet by mouth once daily. PARoxetine (PAXIL) 10 mg tablet Take 1 tablet by mouth once daily. donepezil (ARICEPT) 10 mg tablet Take 1 tablet by mouth once daily. atorvastatin (LIPITOR) 80 mg tablet Take 1 tablet by mouth daily at bedtime. nitroglycerin sublingual (NITROQUICK) 0.4 mg SL tablet Dissolve 1 tablet under the tongue as needed. FOR CHEST PAIN. IF NO RELIEF CALL 911 triamcinolone acetonide (NASACORT AQ) 55 mcg nasal inhaler Use 2 Sprays in the nose once daily. CPAP CPAP mask and other supplies as needed. Mask per pt preference, tubing, filters, heated humidity, lifetime supplies. Dx: JL on CPAP. G47.33. Cholecalciferol, Vitamin D3, 2,000 unit cap Take 2 capsules by mouth once daily. ASPIRIN 81 MG TAB once daily atenolol (TENORMIN) 25 mg tablet Take 1 tablet by mouth every other day. No current facility-administered medications for this visit. Objective BP (!) 86/46 (BP Site: Left Arm, BP Position: Sitting, BP Cuff Size: Large Adult) Pulse 64 Temp 36.6 ?C (97.9 ?F) (Temporal) Resp 20 Wt 69.2 kg (152 lb 8.9 oz) BMI 23.89 kg/m? Physical Exam Constitutional: General: She is not in acute distress. Appearance: She is not ill-appearing or diaphoretic. HENT: Head: Normocephalic. Eyes: Extraocular Movements: Extraocular movements intact. Conjunctiva/sclera: Conjunctivae normal. Cardiovascular: Rate and Rhythm: Normal rate and regular rhythm. Heart sounds: S1 normal and S2 normal. No murmur heard. No gallop. Pulmona (more content not included)...[facility]02-17-2025 History of Present illness Narrative* Matheus Fajardo MD - 11/14/2024 2:36 PM EST This note was created using NoteWriter. Subjective Transitional Care Management Progress Note The patients TCM visit was performed within the 7 days of discharge. Patient's Date of discharge: 11/11/24 Date of initial coordinator contact after discharge: NA Discharge diagnosis: TIA, meningioma, carotid stenosis, metabolic encephalopathy, influenza. Medication review completed Yes Provider Documentation: In follow-up of hospitalization, Mattie Herron is a 84 year old female with the chief complaint of transition of care. I have reviewed the patient s last hospital course including diagnostic testing performed during this hospitalization, their discharge medications, and my assessment and plan with the patient and spouse present at today s visit. Mattie was admitted 11/10/24 with acute mental status change, decreased responsiveness. Other findings were dysarthria, left facial droop, influenza. Symptoms resolved and she was back to baseline. Stroke workup and tele-neurology consult was done. Carotid stenosis, meningioma, but no cerebral vascular accident was found. She was discharged to outpatient follow up, neurology follow up and vascular surgery consult. Spouse wants to transfer neurology care to local neurologist, including dementia care as well. It was increasingly difficult to take Mattie out of the house. Review of Systems Constitutional: Negative for appetite change, fatigue and fever. HENT: Negative for congestion and sore throat. Respiratory: Negative for cough and shortness of breath. Cardiovascular: Negative for chest pain, palpitations and leg swelling. Gastrointestinal: Negative for diarrhea, nausea and vomiting. Neurological: Negative for dizziness, facial asymmetry, weakness, numbness and headaches. ACTIVE PROBLEM LIST Coronary Atherosclerosis Mixed Hyperlipidemia Esophageal Reflux Anxiety State Chronic Rhinitis Tobacco Use Disorder Aortic Valve Sclerosis Bilateral Carotid Artery Stenosis Osteoporosis, Post-Menopausal Ddd (Degenerative Disc Disease), Lumbar Vitamin D Deficiency Jl On Cpap Primary Hypertension Diabetic Peripheral Neuropathy Associated With Type 2 Diabetes Mellitus (Hcc) Polycythemia Urgency Incontinence Gait Abnormality Moderate Dementia Without Behavioral Disturbance, Psychotic Disturbance, Mood Disturbance, Or Anxiety (Hcc) Cad S/P Percutaneous Coronary Angioplasty Pad (Peripheral Artery Disease) (Hcc) Nonrheumatic Aortic Valve Stenosis S/P Right Coronary Artery (Rca) Stent Placement Parkinson's Disease Without Dyskinesia Or Fluctuating Manifestations (Hcc) Meningioma (Hcc) Tia (Transient Ischemic Attack) Social History Tobacco Use Smoking status: Every Day Current packs/day: 0.66 Average packs/day: 0.7 packs/day for 58.5 years (38.6 ttl pk-yrs) Types: Cigarettes Start date: 06/30/1966 Smokeless tobacco: Never Vaping Use Vaping status: Never Used Substance Use Topics Alcohol use: No Drug use: No Current Outpatient Medications Medication Sig oseltamivir (TAMIFLU) 6 mg/mL susr oral liquid TAKE 5ML BY MOUTH TWICE DAILY FOR 4 DAYS. DISCARD THE REMAINDER gabapentin (NEURONTIN) 300 mg capsule Take 1 capsule by mouth three times a day for 180 days. mirabegron (MYRBETRIQ) 50 mg Tb24 Take 1 tablet by mouth once daily. PARoxetine (PAXIL) 10 mg tablet Take 1 tablet by mouth once daily. donepezil (ARICEPT) 10 mg tablet Take 1 tablet by mouth once daily. atorvastatin (LIPITOR) 80 mg tablet Take 1 tablet by mouth daily at bedtime. nitroglycerin sublingual (NITROQUICK) 0.4 mg SL tablet Dissolve 1 tablet under the tongue as needed. FOR CHEST PAIN. IF NO RELIEF CALL 911 triamcinolone acetonide (NASACORT AQ) 55 mcg nasal inhaler Use 2 Sprays in the nose once daily. CPAP CPAP mask and other supplies as needed. Mask per pt preference, tubing, filters, heated humidity, lifetime supplies. Dx: JL on CPAP. G47.33. Cholecalciferol, Vitamin D3, 2,000 unit cap Take 2 capsules by mouth once daily. ASPIRIN 81 MG TAB once daily atenolol (TENORMIN) 25 mg tablet Take 1 tablet by mouth every other day. No current facility-administered medications for this visit. Objective BP (!) 86/46 (BP Site: Left Arm, BP Position: Sitting, BP Cuff Size: Large Adult) Pulse 64 Temp36.6 C (97.9 F) (Temporal) Resp 20 Wt 69.2 kg (152 lb 8.9 oz) BMI 23.89 kg/m Physical Exam Constitutional: General: She is not in acute distress. Appearance: She is not ill-appearing or diaphoretic. HENT: Head: Normocephalic. Eyes: Extraocular Movements: Extraocular movements intact. Conjunctiva/sclera: Conjunctivae normal. Cardiovascular: Rate and Rhythm: Normal rate and regular rhythm. Heart sounds: S1 normal and S2 normal. No murmur heard. No gallop. Pulmonary: Breath sounds: Wheezing and rhonchi present. Abdominal: Tenderness: There is no abdominal tenderness. Musculoskeletal: Right lower leg: No edema. Left lower leg: No edema. Neurological: General: No focal deficit present. Mental Status: She is alert. Mental status is at baseline. Cranial Nerves: No cranial nerve deficit. Sensory: No sensory deficit. Comments: Gait not tested. On wheelchair. Psychiatric: Attention and Perception: Attention normal. Mood and Affect: Mood normal. Speech: Speech normal. Assessment and Plan 1. TIA (transient ischemic attack) - ICD9: 435.9, ICD10: G45.9 (primary diagnosis) Refer to [facility], Dr. Yosvany Holloway. - CONSULT TO NEUROLOGY 2. Atherosclerosis of [place] coronary artery of [place] heart without angina pectoris - ICD9: 414.01, ICD10: I25.10 - BP low. Decrease atenolol to Take one(1) tablet every other day. Spouse indicated understanding will adjust medication as discussed. - ATENOLOL 25 MG TABLET 3. Meningioma (HCC) - ICD9: 225.2, ICD10: D32.9 Follow up per neurology. - CONSULT TO NEUROLOGY 4. 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 behavioral disturbance, psychotic disturbance, mood disturbance, or anxiety, unspecified dementia type (HCC) - ICD9: 294.20, ICD10: F03.B0 Establish with [facility]. - CONSULT TO NEUROLOGY 5. Bilateral carotid artery stenosis - ICD9: 433.10, 433.30, ICD10: I65.23 Refer to [facility]. - CONSULT TO VASCULAR SURGERY 6. Influenza - ICD9: 487.1, ICD10: J11.1 - Finish oseltamivir. Matheus Fajardo MD [facility] Medical Records Department [address] [place] [id number] Discharge Summary 11/11/24 1612 MR#: [id number] Acct: [id number] Name: MATTIE HERRON Rep #: [id number] : 1940 84 From: Trino Purcell MD PCP: Dr. Matheus Fajardo MD Status:ADM STORMY Location: [place] [address] Providers Date of Admission: 11/10/24 Primary Care Physician: Dr. Matheus Fajardo MD Consultations 11/10/24 15:20 Consult: Tele-Neurology Routine Consulting Provider: [facility] Reason for Consult: Acute Ischemic Stroke/TIA EMERGENT Consult: No MD Notified: Yes Date Notified: 11/10/24 Time Notified: 15:25 Method of Notification: Answering Service Nursing Unit Staff Notify [facility] of Tele-Neurology Consult: Yes Reason For Visit: L FACIAL DROOP/ SLURRED SPEECH Diagnosis Discharge Diagnosis (1) Carotid artery stenosis: Status: Acute Code(s): I65.29 - Occlusion and stenosis of unspecified carotid artery (2) Hypoxia: Status: Acute Code(s): R09.02 - Hypoxemia (3) Facial droop: Status: Acute Code(s): R29.810 - Facial weakness (4) Dysarthria: Status: Acute Code(s): R47.1 - Dysarthria and anarthria (5) Influenza A H1N1 infection: Status: Acute Code(s): J10.1 - Influenza due to other identified influenza virus with other respiratory manifestations (6) Weakness: Status: Acute Code(s): R53.1 - Weakness Medications at Discharge Home Medications aspirin 81 mg chewable tablet 81 mg PO DAILY@0800 preventative 07/06/14 atenolol 25 mg tablet 25 mg PO DAILY heart 07/06/14 atorvastatin 80 mg tablet 80 mg PO QHS cholesterol 09/02/19 gabapentin 300 mg capsule 300 mg PO TID neuropathy 09/18/22 cholecalciferol (vitamin D3) 25 mcg (1,000 unit) capsule 25 mcg PO BID vitamin 11/10/24 donepezil 10 mg tablet 5 mg PO DAILY memory 11/10/24 mirabegron 50 mg tablet,extended release 24 hr 50 mg PO DAILY bladder 11/10/24 paroxetine HCl 10 mg tablet 10 mg PO DAILY mood 11/10/24 triamcinolone acetonide 55 mcg nasal spray aerosol (24 Hour Nasal Allergy) 2 spray intranasal DAILY PRN congestion 11/10/24 oseltamivir 30 mg capsule 30 mg PO BID 4 days #8 caps 11/11/24 Hospital Course Operations None Procedures 2-D Echocardiogram Summary of Care Provided Minutes Spent on Discharge: 37 Hospital Course: Per HPI: MATTIE HERRON, is a 84 F who presented to the emergency department at [facility] on 11/10/2024 with a chief complaint of left-sided facial droop and slurred speech with left-sided weakness. Last known normal was midnight last night. She got up this morning and was noted to have some dysarthria/slurred speech and some left facial droop. Her son came over and he noted some left-sided weakness. NIH at time of presentation was 1 and an age at the time my evaluation was 0. She has never had symptoms like this previously. She does have a history of hypertension hyperlipidemia and does take medication for memory loss. Family reports that she typically is oriented times self and place but time tends to be difficult for her. They do state that currently her memory is worse than her baseline. Her does report that they have both been ill with some upper respiratory type symptoms. His started a few days ago and her seem to start in the last 48 hours. She has had some cough and some nasal drainage but no fever or chills. Vital signs on presentation showed temperature of 98.9, heart rate 80, respiratory 18, initial blood pressure was 182/85 with a repeat of 153/67, oxygen saturation was 90% on room air. Oxygen saturation dropped to 89% on room air so she was placed on 2 L nasal cannula with improvement to 96% on 2 L. CBC was overtly unremarkable. She does have a erythrocytosis which appears to be chronic and stable. She has mild thrombocytopenia with a platelet count of 145,000. Differential does show a left shift. Coags were negative. Chemistry panel was unremarkable. Troponin was less than 3. Her UA is not consistent with infection. Chest x-ray was unremarkable. CT of the brain showed chronic changes with no acute abnormalities. CTA of the head and neck showed unremarkable right carotid artery and near occlusion at the origin of the left internal carotid artery due to calcific plaque formation. Vertebral arteries are tiny but antegrade with no LVO noted. COVID/flu/RSV was initially reported out as negative however since has popped positive for influenza A. Stroke team was called on arrival and the stroke neurologist evaluated the patient agreed with admission for stroke rule out. Hospital Course: 1. Possible TIA???84-year-old female presented to the hospital for left facial droop and left-sided weakness with slurred speech that resolved prior to admission. She is already on aspirin and takes Lipitor 80 mg nightly. MRI of the brain was negative for stroke a (more content not included)...[facility]02-03-2025 Telephone encounter Note* Telephone Encounter - Azul Rooney RN - 10/31/2024 10:04 AM EST The patient has been identified by name and date of : Yes Caregiver verified no other encounters exist for this prescription request: Yes Caregiver confirmed with patient/requestor that no other refills are due, in the near future, with this provider at this time: Yes The last office visit in the department: 08/22/2024 Does the patient have a future office visit with this provider/department: 02/23/2025 Requested Prescriptions Pending Prescriptions Disp Refills gabapentin (NEURONTIN) 300 mg capsule 90 capsule 2 Sig: Take 1 capsule by mouth three times a day for 90 days. mirabegron (MYRBETRIQ) 50 mg Tb24 30 tablet 2 Sig: Take 1 tablet by mouth once daily. Azul Rooney RN October 31, 2024 10:05 AM [facility]02-03-[facility]25 Miscellaneous Notes* Telephone Encounter - Azul Rooney RN - 10/31/2024 10:04 AM EST The patient has been identified by name and date of : Yes Caregiver verified no other encounters exist for this prescription request: Yes Caregiver confirmed with patient/requestor that no other refills are due, in the near future, with this provider at this time: Yes The last office visit in the department: 08/22/2024 Does the patient have a future office visit with this provider/department: 02/23/2025 Requested Prescriptions Pending Prescriptions Disp Refills gabapentin (NEURONTIN) 300 mg capsule 90 capsule 2 Sig: Take 1 capsule by mouth three times a day for 90 days. mirabegron (MYRBETRIQ) 50 mg Tb24 30 tablet 2 Sig: Take 1 tablet by mouth once daily. Azul Rooney RN October 31, 2024 10:05 AM documented in [facility] encounterGe[facility]12-[facility] Telephone encounter Note * Telephone Encounter - Malu Mora RN - 09/19/2024 6:35 PM EST The patient has been identified by name and date of : Yes Caregiver verified no other encounters exist for this prescription request: Yes Caregiver confirmed with patient/requestor that no other refills are due, in the near future, with this provider at this time: Yes The last office visit in the department: 08/22/2024 Does the patient have a future office visit with this provider/department: Yes 02/23/2025 Requested Prescriptions Pending Prescriptions Disp Refills PARoxetine (PAXIL) 10 mg tablet 90 tablet 3 Sig: Take 1 tablet by mouth once daily. Malu Mora RN September 19, 2024 6:35 PM [facility]12-23-[facility] Miscellaneous Notes* Telephone Encounter - Malu Mora RN - 09/19/2024 6:35 PM EST The patient has been identified by name and date of : Yes Caregiver verified no other encounters exist for this prescription request: Yes Caregiver confirmed with patient/requestor that no other refills are due, in the near future, with this provider at this time: Yes The last office visit in the department: 08/22/2024 Does the patient have a future office visit with this provider/department: Yes 02/23/2025 Requested Prescriptions Pending Prescriptions Disp Refills PARoxetine (PAXIL) 10 mg tablet 90 tablet 3 Sig: Take 1 tablet by mouth once daily. Malu Mora RN September 19, 2024 6:35 PM * Telephone Encounter - Neida Dougherty - 09/19/2024 9:18 AM EST Patient has been identified by name and date of : Yes, Patient's spouse phones for refill(s): Requested Prescriptions Pending Prescriptions Disp Refills PARoxetine (PAXIL) 10 mg tablet 90 tablet 3 Sig: Take 1 tablet by mouth once daily. Date of last office visit in primary care: 08/22/2024 Date of next office visit in primary care: 02/23/2025 Please advise. Thank you. Neida Dougherty. documented in [facility] encounterGe[facility]12-[facility]24 Telephone encounter Note * Telephone Encounter - Neida Dougherty - 09/19/2024 9:18 AM EST Patient has been identified by name and date of : Yes, Patient's spouse phones for refill(s): Requested Prescriptions Pending Prescriptions Disp Refills PARoxetine (PAXIL) 10 mg tablet 90 tablet 3 Sig: Take 1 tablet by mouth once daily. Date of last office visit in primary care: 08/22/2024 Date of next office visit in primary care: 02/23/2025 Please advise. Thank you. Neida Dougherty. [facility]12-19-[facility] NoteHNO ID: [id number] Author: HYACINTH SON, PT, DPT Service: ? Author Type: Physical Therapist Type: Progress Notes Filed: 09/15/2024 11:12 Note Text: Episode Visit Count: 1 Therapist That Will Accept/Oversee The Plan Of Care: Huy Start of Care Date: 09/13/24 Onset Date: 08/28/22 Patient Identified by Name and Date of : Yes REHABILITATION AND SPORTS THERAPY PHYSICAL THERAPY EVALUATION PLAN OF CARE: Assessment: Mattie Herron presents with chief complaint of dementia, parkinsonism, and balance that interferes with rising from a chair, walking in the house (getting up from a chair without hands,) . The patient presents with impairments in balance, gait, and strength. PROMIS? (Patient-Reported Outcomes Measurement Information System) scores were reviewed and identified as a rehabilitation concern. Prognosis for therapy is Fair due to: chronic nature of impairments, memory deficits, Prognosis may be improved by good support system/ coping skills, current objective clinical presentation. Pt has not fallen since using Rolator. The patient will benefit from skilled therapy services to meet the goals established for this plan of care as noted below. Classification Diagnosis Grouping: (parkinsonism) Goals for Episode of Care: established 09/13/24 Patient reported outcome of pain Interference will decrease T -score by a minimum of 5 points. Dickinson in home exercise program. Patient will demonstrate increase in B hip abduction strength to 5/5 during manual muscle testing in order to improve function for balance. Patient will Improve Timed Up and Go to 15 seconds to demonstrate decreased risk of falling with rollator. (At eval was 27.13 with Rolator) Patient will improve 5 time sit to stand to demonstrate improvement in functional lower extremity strength. (At eval was 32.9 with hands) Patient Goals: to get balance better Time Frame for Goals and Treatment : 10/15/24 Planned Interventions, Frequency, and Duration: Current Frequency: 1x/week Duration: 4 weeks Total Number of Visits Planned: 4 Planned Treatment Interventions: Therapeutic exercise (16381), Neuromuscular re-education (78071), Gait Training (39262), Self-nursing home management (36657), Patient/Family/Caregiver Education PLAN FOR NEXT VISIT: review HEP, add more balance testing, hip strengthening Patient demonstrates good understanding of plan of care and treatment. The above goals and plan of care were discussed and agreed upon by patient/family. SUBJECTIVE: Pt has been using a rollator for the last 2 years and has not had a fall in the past year. Uses all of the time. Patient Goals: to get balance better Functional Limitations: rising from a chair, walking in the house (getting up from a chair without hands,) Prior Level of Function: Required assistance Required assistance with: Ambulation / Mobility, Instrumental ADL's Prior Functional Level Comments: uses rollator, assists IADL's Relevant History Past Relevant Medical Conditions: Diabetes, Falls Right or Left Handed: Right Hobbies / Interests: read Home Environment Patient Lives With: Spouse Assistance Available: 24-Hour Home Type: [place] Entry To Home: Stairs, With Rail Number Of Stairs Into Home: 2 Tub/Shower Type: WIS, chair, gb, HHS Laundry: main floor Equipment Owned: Rollator, Cane, Grab Bars- Shower, Shower Chair Intake Information: Prescription present Previous Treatment: None Falls Interview: Uses an assistive device, No positive findings with falls interview Pain: Pain Pain Level: 3 Pain Location: (knees R > L) Description: Aching Frequency: Continuous Post Treatment Pain Post Treatment Pain Level: No Change PROMIS Scales 09/12/2024 Higher is Better Phys Func - Score 30 (moderate dysfunction) Phys Func - Percentile 2 Self-Eff Symptom - Score 41 (Average) Self-Eff Symptom - Percentile 18 T-scores: mean of general population = 50. 5 points is clinically meaningfully difference Percentiles provide an indication of how the patient's score ranks in relation to the general population. Higher percentile rankings indicate better function/quality of life. 50th percentile is the average of the general population and indicates half of respondents had a worse score. OBJECTIVE MEASURES WITH LEVEL OF FUNCTION: Vision Vision Deficits: Wears corrective lenses Sensory Sensory Deficits: Hearing Hearing deficits: [place] with hearing aids LE Strength R Hip ABduction: 3+/5 R Ankle Dorsiflexion (L4): 3+/5 L Hip ABduction: 3+/5 L Ankle Dorsiflexion (L4): 3+/5 Movement Description Movement Impairment(s): Ataxia Ataxia Comments: wiht finger to nose to finger (left > right) Mobility Rolling: Independent Supine To Sit: Independent Sit to Supine: Independent Sit To Stand: (needs to use hands) Stand To Sit: Independent Gait Gait: Modified Independent Gait Distance (feet): 50 (more content not included)...[id number] of Present illness Narrative* Hyacinth Son, PT, DPT - 09/15/2024 11:10 AM EST Images from the original note were not included. Episode Visit Count: 1 Therapist That Will Accept/Oversee The Plan Of Care: Huy Start of Care Date: 09/13/24 Onset Date: 08/28/22 Patient Identified by Name and Date of : Yes REHABILITATION AND SPORTS THERAPY PHYSICAL THERAPY EVALUATION PLAN OF CARE: Assessment: Mattie Herron presents with chief complaint of dementia, parkinsonism, and balance that interferes with rising from a chair, walking in the house (getting up from a chair without hands,) . The patient presents with impairments in balance, gait, and strength. PROMIS (Patient-Reported Outcomes Measurement Information System) scores were reviewed and identified as a rehabilitationconcern. Prognosis for therapy is Fair due to: chronic nature of impairments, memory deficits, Prognosis may be improved by good support system/ coping skills, current objective clinical presentation. Pt has not fallen since using Rolator. The patient will benefit from skilled therapy services to meet the goals established for this plan of care as noted below. Classification Diagnosis Grouping: (parkinsonism) Goals for Episode of Care: established 09/13/24 Patient reported outcome of pain Interference will decrease T -score by a minimum of 5 points. Dickinson in home exercise program. Patient will demonstrate increase in B hip abduction strength to 5/5 during manual muscle testing in order to improve function for balance. Patient will Improve Timed Up and Go to 15 seconds to demonstrate decreased risk of falling with rollator. (At eval was 27.13 with Rolator) Patient will improve 5 time sit to stand to demonstrate improvement in functional lower extremity strength. (At eval was 32.9 with hands) Patient Goals: to get balance better Time Frame for Goals and Treatment : 10/15/24 Planned Interventions, Frequency, and Duration: Current Frequency: 1x/week Duration: 4 weeks Total Number of Visits Planned: 4 Planned Treatment Interventions: Therapeutic exercise (68383), Neuromuscular re- education (86433), Gait Training (36563), Self-nursing home management (14680), Patient/Family/Caregiver Education PLAN FOR NEXT VISIT: review HEP, add more balance testing, hip strengthening Patient demonstrates good understanding of plan of care and treatment. The above goals and plan of care were discussed and agreed upon by patient/family. SUBJECTIVE: Pt has been using a rollator for the last 2 years and has not had a fall in the past year. Uses allof the time. Patient Goals: to get balance better Functional Limitations: rising from a chair, walking in the house (getting up from a chair without hands,) Prior Level of Function: Required assistance Required assistance with: Ambulation / Mobility, Instrumental ADL's Prior Functional Level Comments: uses rollator, assists IADL's Relevant History Past Relevant Medical Conditions: Diabetes, Falls Right or Left Handed: Right Hobbies / Interests: read Home Environment Patient Lives With: Spouse Assistance Available: 24-Hour Home Type: [place] Entry To Home: Stairs, With Rail Number Of Stairs Into Home: 2 Tub/Shower Type: WIS, chair, gb, HHS Laundry: main floor Equipment Owned: Rollator, Cane, Grab Bars- Shower, Shower Chair Intake Information: Prescription present Previous Treatment: None Falls Interview: Uses an assistive device, No positive findings with falls interview Pain: Pain Pain Level: 3 Pain Location: (knees R > L) Description: Aching Frequency: Continuous Post Treatment Pain Post Treatment Pain Level: No Change PROMIS Scales 09/12/2024 Higher is Better Phys Func - Score 30 (moderate dysfunction) Phys Func - Percentile 2 Self-Eff Symptom - Score 41 (Average) Self-Eff Symptom - Percentile 18 T-scores: mean of general population = 50. 5 points is clinically meaningfully difference Percentiles provide an indication of how the patient's score ranks in relation to the general population. Higher percentile rankings indicate better function/quality of life. 50th percentile is the average of the general population and indicates half of respondents had a worse score. OBJECTIVE MEASURES WITH LEVEL OF FUNCTION: Vision Vision Deficits: Wears corrective lenses Sensory Sensory Deficits: Hearing Hearing deficits: [place] with hearing aids LE Strength R Hip ABduction: 3+/5 R Ankle Dorsiflexion (L4): 3+/5 L Hip ABduction: 3+/5 L Ankle Dorsiflexion (L4): 3+/5 Movement Description Movement Impairment(s): Ataxia Ataxia Comments: wiht finger to nose to finger (left > right) Mobility Rolling: Independent Supine To Sit: Independent Sit to Supine: Independent Sit To Stand: (needs to use hands) Stand To Sit: Independent Gait Gait: Modified Independent Gait Distance (feet): 50 Gait Device: Rollator Gait Deviations: General Deviations General Deviations/Observations: Shuffling Gait, Narrow Base of Support Functional Performance Test Results 5 Times Sit to Stand Test : 32.9 sec (with hands) Timed Up and Go (sec): 27.13 sec Education: Education Learning Preferences: Demonstration, Printed Materials, Explanation, Performance Barriers: Cognitive Limitations Learning/educational needs: Plan of Care, Changes in Plan of Care, Home exercise program Education Provided: Yes, see treatment interventions for education provided Education Provided To: Patient, Caregiver Education Mode/Type: Demonstration, Explanation/Discussion, Literature/Printed Materials, Performance Response to Education/Teach Back: States/Identifies, Return Demonstration, Requires Review/Additional Education TREATMENT: PT Treatment Interventions: Therapeutic Exercise Evaluation Therapeutic Exercise: 1: supine bride 2: SL hip abduction 3: tandem walking along counter 4: sit <> stand (without hands as able) Skilled Intervention: Patient was educated in proper exercise technique and purpose for exercises. Skilled judgment was used in selection of appropriate interventions. Provided written instruction for home exercise program to facilitate proper performance and compliance. Correct performance of therapeutic exercises was facilitated with verbal and visual cuing. Billing * Evaluation Low Complexity: 1 Unit Therapeutic Exercise Treatment Minutes: 23 Total Session Time (minutes): 45 Session Start Time : 1508 Session Stop Time : 1553 Hyacinth Son PT, DPT * Hyacinth Son PT, DPT - 09/13/2024 3:49 PM EST Program_ID:[id number] Access Code: [email or web address] URL: [email or web address] Date: 09-13-2024 Prepared By: Hyacinth Son Program Notes Exercises - Sidelying Hip Abduction - 1 x daily - 7 x weekly - 1-2 sets - 10 reps - supine bridge with tummy tuck - 1 x daily - 7 x weekly - 1-2 sets - 10 reps - Sit to Stand with Armchair - 1 x daily - 7 x weekly - 1 sets - 10 reps - Tandem Walking with Counter Support - 1 x daily - 7 x weekly - 1 sets - 5 reps [facility] Instructions* Patient Instructions* Tram Santana MD - 08/24/2024 10:49 AM EST Lets try increasing the memory medication donepezil to 10 mg once a day. Watch out for diarrhea, decreased appetite, nightmares, or heart rate changes. If you feel sleepy with it you can take it at bedtime, but bedtime dosing may increase risk for nightmares from it. I think physical therapy is a great idea. [facility]24 NoteHNO ID: [id number] Author: TRAM SANTANA MD Service: ? Author Type: Physician Type: Progress Notes Filed: 08/24/2024 10:56 Note Text: FOLLOW UP NOTE Subjective Mattie Herron is a 84 year old female who presents for follow up. 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 Her examination demonstrates severe hearing loss, disorientation, impaired recall, R>L mild parkinsonism, LE numbness, and sensory ataxic gait. 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 Probably Alzheimer's based on pattern but also has severe hearing loss and she is on oxybutynin which could be contributing. Offered MRI Brain, deferred. Start donepezil 5 mg daily. Encouraged activity. Ask urology about alternative bladder medications. For Pism, would just recommend observation for now. Mild symptoms not impacting function. Gait is from sensory ataxia not Parkinson's, which levodopa doesn't help. 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 Continue use of walker. HPI Current Issues - Doing better since the last visit - She hasn't noticed much difference but thinks things are better. More alert, more interested in doing things, able to concentrate enough to read a book sometimes, paying attention when TV is on - Got B12 replaced - No side effects to donepezil - No improvement in balance, scheduled for physical therapy - Down 11 pounds, appetite isn't as good, doing things to try to increase her intake - Oxybutynin to myrbetriq Current Outpatient Medications Medication Sig Dispense Refill gabapentin (NEURONTIN) 300 mg capsule Take 1 capsule by mouth three times a day for 90 days. 90 capsule 2 mirabegron (MYRBETRIQ) 50 mg Tb24 Take 1 tablet by mouth once daily. 30 tablet 2 atorvastatin (LIPITOR) 80 mg tablet Take 1 tablet by mouth daily at bedtime. 90 tablet 3 donepezil (ARICEPT) 5 mg tablet Take 1 tablet by mouth once daily. 90 tablet 1 atenolol (TENORMIN) 25 mg tablet Take 1 tablet by mouth once daily. 90 tablet 3 PARoxetine (PAXIL) 10 mg tablet Take 1 tablet by mouth once daily. 90 tablet 3 nitroglycerin sublingual (NITROQUICK) 0.4 mg SL tablet Dissolve 1 tablet under the tongue as needed. FOR CHEST PAIN. IF NO RELIEF CALL 911 25 tablet 0 triamcinolone acetonide (NASACORT AQ) 55 mcg nasal inhaler Use 2 Sprays in the nose once daily. CPAP CPAP mask and other supplies as needed. Mask per pt preference, tubing, filters, heated humidity, lifetime supplies. Dx: JL on CPAP. G47.33. 1 Device 0 Cholecalciferol, Vitamin D3, 2,000 unit cap Take 2 capsules by mouth once daily. 0 ASPIRIN 81 MG TAB once daily 0 No current facility-administered medications for this visit. Objective OBJECTIVE 08/24/24 1025 BP: 146/72 Pulse: 64 SpO2: 96% Weight: 71.2 kg (156 lb 15.5 oz) General: General Appearance: Well appearing, alert, in no acute distress, well-hydrated, well nourished. Head: Normocephalic Neck: Supple Heart: RRR Neurologic Exam: She is alert. Reg 11/28 [facility], 08/19x, Tue x, age 84, WORLD -> DLORW, DR 0 -> 0 -> 10/31. Affect is appropriate. Cranial Nerves: Extraocular movements show full and smooth pursuits. No nystagmus. Visual petersen are full to confrontation. Facial activation is symmetric. Hearing is only mildly impaired today. There is no hypomimia. There is no hypophonia. There is no dysarthria. Tongue is midline. Palate elevates symmetrically. Shoulder shrug is normal. Motor: Muscle bulk is normal. Muscle power is full. Mild R> bradykinesia. Mild bilateral rest tremor, subtle postural re-emergent tremor. No rigidity today Sensory: Vibration absent ankles present knees Reflex: Biceps and brachioradialis is 2+ bilaterally. Patellar reflex 1+ bilaterally. Achilles 0 bilaterally. Coordination: Finger to nose is smooth without ataxia. Gait/station: Wider base, uses walker for support, decreased stride length, minimally stooped, romberg positive even with eyes open. DATA REVIEW Actual films/image/tracing reviewed and summarized as follows: n/a Old records reviewed and summarized as follows: 07/2024 labs B12 800, MMA pending, A1c 6, TSH 3.5, FT4 1.2 04/2024 labs Folate 7.8, B12 152, SPEP neg, ESR 2, Cu 80, TSH 5.1 CTH 08/03/09 normal Reviewed prior neuro records [facility] 12/27/21 1. 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 Her examinationdemonstrates severe hearing loss, disorientation, impaired recall, R>L mild parkinsonism, LE numbness, and sensory ataxic gait. 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 Probably Alzheimer's based on pattern but also has severe hearing loss and she is on oxybutynin which could be contributing. Offered MRI Brain, deferred. Start donepezil 5 mg daily. Encouraged activity. Ask urology about alternative bladder medications. For Pism, would just recommend observation for now. Mild symptoms not impacting function. Gait is from sensory ataxia not Parkinson's, which levodopadoesn't help. 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 Continue use of walker. HPI Current Issues - Doing better since the last visit - She hasn't noticed much difference but thinks things are better. More alert, more interested in doing things, able to concentrate enough to read a book sometimes, paying attention when TV is on - Got B12 replaced - No side effects to donepezil - No improvement in balance, scheduled for physical therapy - Down 11 pounds, appetite isn't as good, doing things to try to increase her intake - Oxybutynin to myrbetriq Current Outpatient Medications Medication Sig Dispense Refill gabapentin (NEURONTIN) 300 mg capsule Take 1 capsule by mouth three times a day for 90 days. 90 capsule 2 mirabegron (MYRBETRIQ) 50 mg Tb24 Take 1 tablet by mouth once daily. 30 tablet 2 atorvastatin (LIPITOR) 80 mg tablet Take 1 tablet by mouth daily at bedtime. 90 tablet 3 donepezil (ARICEPT) 5 mg tablet Take 1 tablet by mouth once daily. 90 tablet 1 atenolol (TENORMIN) 25 mg tablet Take 1 tablet by mouth once daily. 90 tablet 3 PARoxetine (PAXIL) 10 mg tablet Take 1 tablet by mouth once daily. 90 tablet 3 nitroglycerin sublingual (NITROQUICK) 0.4 mg SL tablet Dissolve 1 tablet under the tongue as needed. FOR CHEST PAIN. IF NO RELIEF CALL 911 25 tablet 0 triamcinolone acetonide (NASACORT AQ) 55 mcg nasal inhaler Use 2 Sprays in the nose once daily. CPAP CPAP mask and other supplies as needed. Mask per pt preference, tubing, filters, heated humidity, lifetime supplies. Dx: JL on CPAP. G47.33. 1 Device 0 Cholecalciferol, Vitamin D3, 2,000 unit cap Take 2 capsules by mouth once daily. 0 ASPIRIN 81 MG TAB once daily 0 No current facility-administered medications for this visit. Objective OBJECTIVE 08/24/24 1025 BP: 146/72 Pulse: 64 SpO2: 96% Weight: 71.2 kg (156 lb 15.5 oz) General: General Appearance: Well appearing, alert, in no acute distress, well-hydrated, well nourished. Head: Normocephalic Neck: Supple Heart: RRR Neurologic Exam: She is alert. Reg 3/ [facility], , [place]uparamjit x, age 84, [place] -> DLDR JENNA 0/3 -> 0/3 -> 2/3.Affect is appropriate. Cranial Nerves: Extraocular movements show full and smooth pursuits. No nystagmus. Visual petersen are full to confrontation. Facial activation is symmetric. Hearing is only mildly impaired today. There is no hypomimia. There is no hypophonia. There is no dysarthria. Tongue is midline. Palate elevates symmetrically. Shoulder shrug is normal. Motor: Muscle bulk is normal. Muscle power is full. Mild R> bradykinesia. Mild bilateral rest tremor, subtle postural re-emergent tremor. No rigidity today Sensory: Vibration absent ankles present knees Reflex: Biceps and brachioradialis is 2+ bilaterally. Patellar reflex 1+ bilaterally. Achilles 0 bilaterally. Coordination: Finger to nose is smooth without ataxia. Gait/station: Wider base, uses walker for support, decreased stride length, minimally stooped, romberg positive even with eyes open. DATA REVIEW Actual films/image/tracing reviewed and summarized as follows: n/a Old records reviewed and summarized as follows: 07/2024 labs B12 800, MMA pending, A1c 6, TSH 3.5, FT4 1.2 04/2024 labs Folate 7.8, B12 152, SPEP neg, ESR 2, Cu 80, TSH 5.1 CTH 08/03/09 normal Reviewed prior neuro records EMG 12/27/21 1. 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 2. Chronic motor axon loss changes in muscles within the bilateral L2-L5 myotomes consistent with with chronic radiculopathies affecting these levels, mild in degree at L2 and more moderate to severe at L3-L5. This is accompanied by findings of active axon loss at L5 bilaterally and L3/4 on the left. 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 Her examination demonstrates hearing loss, mild disorientation, impaired recall, R>L mild rest tremor, LE numbness, and sensory ataxic gait. 1. Dementia suspected AD, B12 def - Doing better with donepezil 5 mg, B12 replacement, and oxybutynin change to Myrbetriq - Offered observation or increase donepezil, will increase donepezil to 10 mg. Discussed side effects. Has had some weight loss will keep an eye on, if declining too much may need to stop 2. Sensory ataxia from LE numbness - B12 replaced though without significant improvement as of yet - Physical therapy - Supportive device 3. Mild rest tremor - No current need for medication, observe Follow-up: 6 months Risks & Side Effects of Newly Prescribed Medication, Discussed with Patient: YES Tram Santana MD [facility] Neurology [facility] Instructions* Patient Instructions* Matheus Fajardo MD - 08/22/2024 3:39 PM EST LABS TODAY. [facility]24 NoteHNO ID: [id number] Author: MATHEUS FAJARDO MD Service: ? Author Type: Physician Type: Progress Notes Filed: 08/22/2024 16:11 Note Text: This note was created using [employer]. Subjective Patient presents with: F/U 6 months Mattie Herron is a 84 year old female. She complained of difficulty with balance and increased dependence on her rollator walker. She denied falling but was concerned since her sister had similar issues and had a significant fall. She did see surgery for follow up colonoscopy, and she declined further routine screening. She also saw neurology (Dr. Santana) and was started on Aricept for dementia. Parkinson's was being monitored at this time. She had some minor lab abnormalities with her dementia work up. Review of Systems Constitutional: Negative for appetite change, fatigue, fever and unexpected weight change. Respiratory: Negative for cough, chest tightness, shortness of breath and wheezing. Cardiovascular: Negative for chest pain, palpitations and leg swelling. Gastrointestinal: Negative for abdominal pain, constipation and diarrhea. Musculoskeletal: Positive for gait problem. Neurological: Positive for tremors and weakness. Negative for dizziness and light-headedness. ACTIVE PROBLEM LIST Coronary Atherosclerosis Mixed Hyperlipidemia Esophageal Reflux Anxiety State Chronic Rhinitis Tobacco Use Disorder Aortic Valve Sclerosis Bilateral Carotid Artery Stenosis Osteoporosis, Post-Menopausal Ddd (Degenerative Disc Disease), Lumbar Vitamin D Deficiency Jl On Cpap Primary Hypertension Diabetic Peripheral Neuropathy Associated With Type 2 Diabetes Mellitus (Hcc) Polycythemia Urgency Incontinence Gait Abnormality Moderate Dementia Without Behavioral Disturbance, Psychotic Disturbance, Mood Disturbance, Or Anxiety ([facility]) Cad S/P Percutaneous Coronary Angioplasty Pad (Peripheral Artery Disease) ([facility]) Nonrheumatic Aortic Valve Stenosis S/P Right Coronary Artery (Rca) Stent Placement Parkinson's Disease Without Dyskinesia Or Fluctuating Manifestations (Former[facility]) Social History Tobacco Use Smoking status: Every Day Current packs/day: 0.66 Average packs/day: 0.7 packs/day for 58.2 years (38.4 ttl pk-yrs) Types: Cigarettes Start date: 06/30/1966 Smokeless tobacco: Never Vaping Use Vaping status: Never Used Substance Use Topics Alcohol use: No Drug use: No Current Outpatient Medications Medication Sig gabapentin (NEURONTIN) 300 mg capsule Take 1 capsule by mouth three times a day for 90 days. mirabegron (MYRBETRIQ) 50 mg Tb24 Take 1 tablet by mouth once daily. atorvastatin (LIPITOR) 80 mg tablet Take 1 tablet by mouth daily at bedtime. donepezil (ARICEPT) 5 mg tablet Take 1 tablet by mouth once daily. atenolol (TENORMIN) 25 mg tablet Take 1 tablet by mouth once daily. PARoxetine (PAXIL) 10 mg tablet Take 1 tablet by mouth once daily. nitroglycerin sublingual (NITROQUICK) 0.4 mg SL tablet Dissolve 1 tablet under the tongue as needed. FOR CHEST PAIN. IF NO RELIEF CALL 911 triamcinolone acetonide (NASACORT AQ) 55 mcg nasal inhaler Use 2 Sprays in the nose once daily. CPAP CPAP mask and other supplies as needed. Mask per pt preference, tubing, filters, heated humidity, lifetime supplies. Dx: JL on CPAP. G47.33. Cholecalciferol, Vitamin D3, 2,000 unit cap Take 2 capsules by mouth once daily. ASPIRIN 81 MG TAB once daily omeprazole (PRILOSEC) 40 mg capsule Take 1 capsule by mouth once daily. No current facility-administered medications for this visit. Objective BP 123/71 (BP Site: Right Arm, BP Position: Sitting, BP Cuff Size: Large Adult) Pulse 67 Temp 36.6 ?C (97.8 ?F) (Temporal) Wt 71.2 kg (156 lb 15.5 oz) BMI 24.58 kg/m? Physical Exam Constitutional: General: She is not in acute distress. Appearance: She is not ill-appearing. HENT: Head: Atraumatic. Eyes: Conjunctiva/sclera: Conjunctivae normal. Cardiovascular: Rate and Rhythm: Normal rate and regular rhythm. Pulses: Decreased pulses. Heart sounds: S1 normal and S2 normal. Murmur heard. Systolic murmur is present with a grade of 1/6. Pulmonary: Effort: No respiratory distress. Breath sounds: Rhonchi present. No wheezing or rales. Abdominal: Palpations: Abdomen is soft. Tenderness: There is no abdominal tenderness. Musculoskeletal: Right lower leg: No edema. Left lower leg: No edema. Neurological: General: No focal deficit present. Mental Status: She is alert. Mental status is at baseline. Motor: Tremor present. Gait: Gait abnormal. Comments: Rollator. 1 assist with transfer. Feet:Shoes and socks removed, No ulcers; hammertoes, abnormal pulses Decreased bilaterally, not sensitive to monofilament in some toes, calluses noted right, and nails notable for Deformed, Hypertrophic, or Yellowish Assessment and Plan 1. 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) - ICD9: 2 (more content not included)...[facility]11-25-[facility] History of Present illness Narrative* Matheus Fajardo MD - 08/22/2024 3:19 PM EST This note was created using [employer]. Subjective Patient presents with: F/U 6 months Mattie Herron is a 84 year old female. She complained of difficulty with balance and increased dependence on her rollator walker. She denied falling but was concerned since her sister had similar issues and had a significant fall. She did see surgery for follow up colonoscopy, and she declined further routine screening. She alsosaw neurology (Dr. Santana) and was started on Aricept for dementia. Parkinson's was being monitored at this time. She had some minor lab abnormalities with her dementia work up. Review of Systems Constitutional: Negative for appetite change, fatigue, fever and unexpected weight change. Respiratory: Negative for cough, chest tightness, shortness of breath and wheezing. Cardiovascular: Negative for chest pain, palpitations and leg swelling. Gastrointestinal: Negative for abdominal pain, constipation and diarrhea. Musculoskeletal: Positive for gait problem. Neurological: Positive for tremors and weakness. Negative for dizziness and light-headedness. ACTIVE PROBLEM LIST Coronary Atherosclerosis Mixed Hyperlipidemia Esophageal Reflux Anxiety State Chronic Rhinitis Tobacco Use Disorder Aortic Valve Sclerosis Bilateral Carotid Artery Stenosis Osteoporosis, Post-Menopausal Ddd (Degenerative Disc Disease), Lumbar Vitamin D Deficiency Jl On Cpap Primary Hypertension Diabetic Peripheral Neuropathy Associated With Type 2 Diabetes Mellitus (Hcc) Polycythemia Urgency Incontinence Gait Abnormality Moderate Dementia Without Behavioral Disturbance, Psychotic Disturbance, Mood Disturbance, Or Anxiety (Hcc) Cad S/P Percutaneous Coronary Angioplasty Pad (Peripheral Artery Disease) ([facility]) Nonrheumatic Aortic Valve Stenosis S/P Right Coronary Artery (Rca) Stent Placement Parkinson's Disease Without Dyskinesia Or Fluctuating Manifestations ([facility]) Social History Tobacco Use Smoking status: Every Day Current packs/day: 0.66 Average packs/day: 0.7 packs/day for 58.2 years (38.4 ttl pk-yrs) Types: Cigarettes Start date: 06/30/1966 Smokeless tobacco: Never Vaping Use Vaping status: Never Used Substance Use Topics Alcohol use: No Drug use: No Current Outpatient Medications Medication Sig gabapentin (NEURONTIN) 300 mg capsule Take 1 capsule by mouth three times a day for 90 days. mirabegron (MYRBETRIQ) 50 mg Tb24 Take 1 tablet by mouth once daily. atorvastatin (LIPITOR) 80 mg tablet Take 1 tablet by mouth daily at bedtime. donepezil (ARICEPT) 5 mg tablet Take 1 tablet by mouth once daily. atenolol (TENORMIN) 25 mg tablet Take 1 tablet by mouth once daily. PARoxetine (PAXIL) 10 mg tablet Take 1 tablet by mouth once daily. nitroglycerin sublingual (NITROQUICK) 0.4 mg SL tablet Dissolve 1 tablet under the tongue as needed. FOR CHEST PAIN. IF NO RELIEF CALL 911 triamcinolone acetonide (NASACORT AQ) 55 mcg nasal inhaler Use 2 Sprays in the nose once daily. CPAP CPAP mask and other supplies as needed. Mask per pt preference, tubing, filters, heated humidity, lifetime supplies. Dx: JL on CPAP. G47.33. Cholecalciferol, Vitamin D3, 2,000 unit cap Take 2 capsules by mouth once daily. ASPIRIN 81 MG TAB once daily omeprazole (PRILOSEC) 40 mg capsule Take 1 capsule by mouth once daily. No current facility-administered medications for this visit. Objective BP 123/71 (BP Site: Right Arm, BP Position: Sitting, BP Cuff Size: Large Adult) Pulse 67 Temp 36.6 C (97.8 F) (Temporal) Wt 71.2 kg (156 lb 15.5 oz) BMI 24.58 kg/m Physical Exam Constitutional: General: She is not in acute distress. Appearance: She is not ill-appearing. HENT: Head: Atraumatic. Eyes: Conjunctiva/sclera: Conjunctivae normal. Cardiovascular: Rate and Rhythm: Normal rate and regular rhythm. Pulses: Decreased pulses. Heart sounds: S1 normal and S2 normal. Murmur heard. Systolic murmur is present with a grade of 1/6. Pulmonary: Effort: No respiratory distress. Breath sounds: Rhonchi present. No wheezing or rales. Abdominal: Palpations: Abdomen is soft. Tenderness: There is no abdominal tenderness. Musculoskeletal: Right lower leg: No edema. Left lower leg: No edema. Neurological: General: No focal deficit present. Mental Status: She is alert. Mental status is at baseline. Motor: Tremor present. Gait: Gait abnormal. Comments: Rollator. 1 assist with transfer. Feet:Shoes and socks removed, No ulcers; hammertoes, abnormal pulses Decreased bilaterally, not sensitive to monofilament in some toes, calluses noted right, and nails notable for Deformed, Hypertrophic, or Yellowish Assessment and Plan 1. 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) - ICD9: 250.60, 357.2, ICD10: E11.42 (primary diagnosis) - Control undetermined, due for labs - Diabetes is diet controlled. - THYROID STIMULATING HORMONE - T4 FREE/FREE THYROXINE - VITAMIN B12 - METHYLMALONIC ACID - BASIC METABOLIC PANEL - HEMOGLOBIN A1C - ALBUMIN/CREATININE RATIO, URINE 2. Nonrheumatic aortic valve stenosis - ICD9: 424.1, ICD10: I35.0 Stable. 3. Atherosclerosis of [place] coronary artery of [place] heart without angina pectoris - ICD9: 414.01, ICD10: I25.10 Stable. 4. 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 behavioral disturbance, psychotic disturbance, mood disturbance, or anxiety, unspecified dementia type (HCC) - ICD9: 294.20, ICD10: F03.B0 See neurology this week as scheduled. - CONSULT TO PHYSICAL THERAPY 5. 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 (HCC) - ICD9: 332.0, ICD10:G20.A1 See neurology as scheduled. - CONSULT TO PHYSICAL THERAPY 6. Gait abnormality - ICD9: 781.2, ICD10: R26.9 - CONSULT TO PHYSICAL THERAPY 7. Polycythemia - ICD9: 238.4, ICD10: D75.1 Recheck. - COMPLETE BLOOD COUNT Matheus Fajardo MD [facility] Telephone encounter Note * Telephone Encounter - Hyacinth Raymundo - 08/02/2024 3:20 PM EST Prescription Refill Information The patient has been identified by name and date of : Yes Caregiver verified no other encounters exist for this prescription request: Yes Caregiver confirmed with patient/requestor that no other refills are due, in the near future, with this provider at this time: Yes The last office visit in the department: 02-18-24 Does the patient have a future office visit with this provider/department: Yes Requested Prescriptions Pending Prescriptions Disp Refills gabapentin (NEURONTIN) 300 mg capsule 90 capsule 2 Sig: Take 1 capsule by mouth three times a day for 90 days. mirabegron (MYRBETRIQ) 50 mg Tb24 30 tablet 2 Sig: Take 1 tablet by mouth once daily. Hyacinth Montemayor August 02, 2024 3:21 PM [facility]11-05-2024 Miscellaneous Notes* Telephone Encounter - Hyacinth Raymundo - 08/02/2024 3:20 PM EST Prescription Refill Information The patient has been identified by name and date of : Yes Caregiver verified no other encounters exist for this prescription request: Yes Caregiver confirmed with patient/requestor that no other refills are due, in the near future, with this provider at this time: Yes The last office visit in the department: 02-18-24 Does the patient have a future office visit with this provider/department: Yes Requested Prescriptions Pending Prescriptions Disp Refills gabapentin (NEURONTIN) 300 mg capsule 90 capsule 2 Sig: Take 1 capsule by mouth three times a day for 90 days. mirabegron (MYRBETRIQ) 50 mg Tb24 30 tablet 2 Sig: Take 1 tablet by mouth once daily. Hyacinth Montemayor August 02, 2024 3:21 PM documented in [facility]Ge[facility]10-[facility]24 Telephone encounter Note * Telephone Encounter - Hyacinth Raymundo - 07/20/2024 2:32 PM EDT Prescription Refill Information The patient has been identified by name and date of : Yes Caregiver verified no other encounters exist for this prescription request: Yes Caregiver confirmed with patient/requestor that no other refills are due, in the near future, with this provider at this time: Yes The last office visit in the department: 02-18-24 Does the patient have a future office visit with this provider/department: Yes Requested Prescriptions Pending Prescriptions Disp Refills atorvastatin (LIPITOR) 80 mg tablet 90 tablet 3 Sig: Take 1 tablet by mouth daily at bedtime. Hyacinth Montemayor July 20, 2024 2:33 PM [facility]10-23-[facility] Miscellaneous Notes* Telephone Encounter - Hyacinth Raymundo - 07/20/2024 2:32 PM EDT Prescription Refill Information The patient has been identified by name and date of : Yes Caregiver verified no other encounters exist for this prescription request: Yes Caregiver confirmed with patient/requestor that no other refills are due, in the near future, with this provider at this time: Yes The last office visit in the department: 02-18-24 Does the patient have a future office visit with this provider/department: Yes Requested Prescriptions Pending Prescriptions Disp Refills atorvastatin (LIPITOR) 80 mg tablet 90 tablet 3 Sig: Take 1 tablet by mouth daily at bedtime. Hyacinth Montemayor July 20, 2024 2:33 PM documented in this encounterGe[facility]08-21-2024 History of Present illness Narrative* Elvira Gunter DO - 05/18/2024 3:13 PM EDT Images from the original note were not included. [facility] SE[facility] OF [facility] OUTPATIENT VISIT DATE May 18, 2024 PRIMARY CARE PHYSICIAN: Matheus Fajardo [address] [place] [address] HISTORY OF PRESENT ILLNESS: Ms. Herron is a 84 year old female. The patient presents to reestablish care due to history of coronary disease status post remote balloon angioplasty followed by stenting to her RCA. Currently she presents with her who helps her quite a bit due to development of dementia. This is stablemainly with short-term memory loss. She also has weakness and fatigue for which she needs to utilize a walker. This is stable as well. She denies chest discomfort, dyspnea on proportion usual, orthopnea, paroxysmal nocturnal dyspnea, palpitations, near-syncope or syncope. The patient is lives at home with her of over 60 years. 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 She is retired. She is a non-smoker, nondrinker. She is having difficulty remembering to eat and apparently is only eating 25% of her meals per her . She has had no difficulty with sleep and remains compliant with her CPAP. Cardiac risk factors: Age, postmenopausal female, hypertension, hyperlipidemia, known CAD Impression: 1. Coronary disease status post angioplasty and eventual stenting of her right coronary artery 2. History of hypertension 3. History hyperlipidemia 4. History obstructive sleep apnea compliant with CPAP mask 5. History of peripheral disease status post stenting 6. History of mild aortic stenosis 7. DNR status per she and her EKG performed today demonstrates normal sinus rhythm with low voltage at 62 bpm otherwise normal. PLAN AND RECOMMENDATIONS: The patient overall appears stable without apparent symptoms of suggest angina or cardiac compensation. Heart rate, blood pressure and recent cholesterol profile are favorable and the same. Memory apparently is favorable and the same as well but she is having difficulty eating. We discussed this indetail. We discussed aggressiveness of care once again and she/her would be open to consideration of invasive heart procedures depending upon the situation or scenario. Overall however she would not want to be resuscitated should she be pulseless such as a situation where that would be in her home. Given this, we will update an echocardiogram to reevaluate her degree of aortic stenosis. We have otherwise made no additions or changes. Dietary and lifestyle modification was reemphasized. We will look forward to reevaluating her formally in the spring. Vitals: BP 112/58 Pulse 62 Ht 170.2 cm (5' 7) Wt 73.5 kg (162 lb 0.6 oz) SpO2 95% BMI 25.38 kg/m Physical Exam Vitals reviewed. Constitutional: General: She is not in acute distress. Appearance: Normal appearance. She is well-developed. HENT: Head: Normocephalic and atraumatic. Nose: Nose normal. Eyes: General: No scleral icterus. Right eye: No discharge. Left eye: No discharge. Pupils: Pupils are equal, round, and reactive to light. Neck: Thyroid: No thyromegaly. Vascular: No carotid bruit or JVD. Cardiovascular: Rate and Rhythm: Normal rate and regular rhythm. Heart sounds: Normal heart sounds. No murmur heard. No friction rub. No gallop. Pulmonary: Effort: Pulmonary effort is normal. No respiratory distress. Breath sounds: Normal breath sounds. No wheezing or rales. Abdominal: General: Bowel sounds are normal. Palpations: Abdomen is soft. Musculoskeletal: General: Normal range of motion. Cervical back: Normal range of motion and neck supple. Skin: General: Skin is warm and dry. Capillary Refill: Capillary refill takes less than 2 seconds. Coloration: Skin is not pale. Neurological: Mental Status: She is alert and oriented to person, place, and time. Cranial Nerves: No cranial nerve deficit. Psychiatric: Behavior: Behavior normal. Thought Content: Thought content normal. Judgment: Judgment normal. Review of Systems Constitutional: Positive for fatigue. Negative for activity change. HENT: Negative for ear pain and facial swelling. Eyes: Negative for pain and discharge. Respiratory: Negative for chest tightness and shortness of breath. Cardiovascular: Negative for chest pain, palpitations and leg swelling. Gastrointestinal: Negative for abdominal pain, blood in stool, nausea and vomiting. Endocrine: Negative for cold intolerance and heat intolerance. Genitourinary: Negative for frequency and hematuria. Musculoskeletal: Negative for arthralgias and gait problem. Skin: Negative for color change, pallor and rash. Allergic/Immunologic: Negative for immunocompromised state. Neurological: Negative for dizziness, syncope, light-headedness and headaches. Hematological: Negative for adenopathy. Does not bruise/bleed easily. Psychiatric/Behavioral: Negative for confusion. The patient is not nervous/anxious. PAST MEDICAL HISTORY No date: Abnormal mammogram, unspecified Comment: RIGHT 08/12/2006: ABSCESS VULVA No date: Acute gastritis without mention of hemorrhage No date: Allergic rhinitis due to other allergen No date: Anxiety state, unspecified 04/02/2012: Aortic valve sclerosis 03/29/2008: B-COMPLEX DEFIC NEC No date: Benign neoplasm of colon 04/02/2012: Carotid artery disease without cerebral infarction (HCC) 07/07/2005: Chronic rhinitis 07/07/2005: Congenital atresia and stenosis of aorta Comment: Infrarenal stent 200307/07/2005: Coronary atherosclerosis Comment: [place], PTCA 1988. [place], RCA stent November 2003. 07/07/2005: Coronary atherosclerosis of unspecified type of vessel, [place] or graft Comment: [place], PTCA 1988. [place], RCA stent November 2003. 04/19/2014: DDD (degenerative disc disease), lumbar Comment: Dr. Galen Sanchez, pain management No date: Diaphragmatic hernia without mention of obstruction or gangrene No date: Diverticulosis of colon (without mention of hemorrhage) No date: Esophageal reflux No date: Esophagitis, unspecified 06/10/2016: Essential hypertension 05/19/2019: Excessive sweating, local 03/12/2007: Hemangioma of liver 07/07/2005: Mixed hyperlipidemia 05/19/2019: Nocturnal leg cramps 10/16/2011: JL (obstructive sleep apnea) Comment: NAZANIN Tierney for CPAP 09/14/2012: Osteoporosis, post-menopausal 11/04/2017: Other microscopic hematuria Comment: Dr. Galen Waters. 10/30/2017: Polycythemia No date: Postmenopausal atrophic vaginitis 10/01/2006: Type II or unspecified type diabetes mellitus without mention of complication, not stated as uncontrolled 11/12/2010: Ureterolithiasis 11/03/2015: Venous insufficiency of both lower extremities PAST SURGICAL HISTORY 09/05/08: BX BREAST PERC VACUUM/ROTN Comment: RIGHT BREAST 08/05/05: COLONOSCOPY FLX DX W/COLLJ SPEC WHEN PFRMD Comment: Colonoscopy 10/06/2006: COLONOSCOPY FLX DX W/COLLJ SPEC WHEN PFRMD Comment: Colonoscopy 06/07/2012: COLONOSCOPY FLX DX W/COLLJ SPEC WHEN PFRMD Comment: Colonoscopy 06/30/2013: COLONOSCOPY FLX DX W/COLLJ SPEC WHEN PFRMD Comment: Colonoscopy 05/22/2017: COLSC FLX W/RMVL OF TUMOR POLYP LESION SNARE TQ Comment: multiple [id number] follow-up 1988: CORONARY ENDARTERCOMY OPEN ANY METHOD Comment: Angioplasty 09/08/2008: CORRECT BUNION,SIMPLE Comment: charles 10/26/2017: CYSTOSCOPY 09/30/07: EGD TRANSORAL BIOPSY SINGLE/MULTIPLE 09/05/08: EXC BREAST LES PREOP PLMT RAD MARKER OPEN 1 LES 11/2003: INSERT INTRACORONARY STENT Comment: RIGHT CORONARY STENT 02/2004: INSERT INTRACORONARY STENT Comment: STENT INFRARENAL ABDOMINAL AORTA 08/30/2012: PAST SURGICAL HISTORY OF Comment: Right thumb, wrist surgery 02/15/2018: PAST SURGICAL HISTORY OF; Left Comment: Left cataract removed 09/05/08: STEREOTACTIC CORE BIOPSY Social History Tobacco Use Smoking status: Every Day Current packs/day: 0.66 Average packs/day: 0.7 packs/day for 58.0 years (38.3 ttl pk-yrs) Types: Cigarettes Start date: 06/30/1966 Smokeless tobacco: Never Vaping Use Vaping status: Never Used Substance Use Topics Alcohol use: No Drug use: No FAMILY HISTORY Problem Relation Age of Onset Colon Cancer Mother other (INTESTINAL TUMOR) Mother UPPER INTESTINAL TUMOR Heart Father [place] Diabetes Father Stroke Father MULTIPLE STROKES Cancer Father skin Heart Brother ANGIOPLASTY Colon Cancer Brother Alzheimer's Disease Brother Aneurysm Brother ALLERGIES Allergen Reactions Amoxicillin Mental Status Change Bee Sting Hives, Swelling, Shortness of Breath Percocet [Oxycodone* Other: See Comments Patient passed out Rosuvastatin Other: See Comments Leg cramps. Sulfa (Sulfonamide * Vicodin [Hydrocodon* Other: See Comments Patient passed out from medication Zocor [Simvastatin] Other: See Comments Clavulanic Acid Itching CURRENT MEDICATIONS: mirabegron (MYRBETRIQ) 50 mg Tb24 Take 1 tablet by mouth once daily. donepezil (ARICEPT) 5 mg tablet Take 1 tablet by mouth once daily. gabapentin (NEURONTIN) 300 mg capsule Take 1 capsule by mouth three times a day for 90 days. atenolol (TENORMIN) 25 mg tablet Take 1 tablet by mouth once daily. omeprazole (PRILOSEC) 40 mg capsule Take 1 capsule by mouth once daily. PARoxetine (PAXIL) 10 mg tablet Take 1 tablet by mouth once daily. atorvastatin (LIPITOR) 80 mg tablet Take 1 tablet by mouth daily at bedtime. nitroglycerin sublingual (NITROQUICK) 0.4 mg SL tablet Dissolve 1 tablet under the tongue as needed. FOR CHEST PAIN. IF NO RELIEF CALL 911 triamcinolone acetonide (NASACORT AQ) 55 mcg nasal inhaler Use 2 Sprays in the nose once daily. CPAP CPAP mask and other supplies as needed. Mask per pt preference, tubing, filters, heated humidity, lifetime supplies. Dx: JL on CPAP. G47.33. Cholecalciferol, Vitamin D3, 2,000 unit cap Take 2 capsules by mouth once daily. ASPIRIN 81 MG TAB once daily Elvira Gunter DO, FACC, FAC [employer]s [employer] Parking Lots Sweeper Operator, [facility] Ambulatory Cardiology [employer] Sweeper Operator, [facility] Cardiac Rehabilitation [employer] Sweeper Operator, [facility] Card[facility] Rehabilitation [employer] Sweeper Operator, [facility] [employer] Sweeper Operator, [facility] Ambulatory Cardiology Clinical Data Visualization Developer Profressor of Medicine, [facility] Staff Flight Physician, [facility]om[facility] Department of Cardiovascular Medicine/Heart and Vascular [place], [facility] Please note: This note has been produced using speech recognition software and may contain errors related to that system including michelle, punctuation, spelling, words, gender and phrases that may be inappropriate. documented in this encounterGe[facility]08-13-2024 Telephone encounter Note * Telephone Encounter - Yolie Johnson RN - 05/10/2024 8:54 AM EDT Patient notified of results and provider's instructions. Patient verbalizes understanding. Yolie Johnson RN [facility]08-13-2024 Miscellaneous Notes* Telephone Encounter - Yolie Johnson RN - 05/10/2024 8:54 AM EDT Patient notified of results and provider's instructions. Patient verbalizes understanding. Yolie Johnson RN * Telephone Encounter - Vivian Samuels LPN - 05/10/2024 8:30 AM EDT Left message to call & speak to nurse re: results. Vivian Samuels LPN * Telephone Encounter - Vivian Samuels LPN - 05/10/2024 8:29 AM EDT ----- Message from Matheus Fajardo MD sent at 05/10/2024 12:28 AM EDT ----- Osteoporosis worse in all levels compared with 10 years ago. As discussed, consider Prolia SC injection every 6 months, or Reclast IV infusion every 12 months. documented in this encounterGe[facility]08-13-2024 Telephone encounter Note * Telephone Encounter - Vivian Samuels LPN - 05/10/2024 8:30 AM EDT Left message to call & speak to nurse re: results. Vivian Samuels LPN [facility]08-13-[facility] Telephone encounter Note* Telephone Encounter - Vivian Samuels LPN - 05/10/2024 8:29 AM EDT ----- Message from Matheus Fajardo MD sent at 05/10/2024 12:28 AM EDT ----- Osteoporosis worse in all levels compared with 10 years ago. As discussed, consider Prolia SC injection every 6 months, or Reclast IV infusion every 12 months. [facility] History of Present illness Narrative* Paul Eli, RT(R) - 05/05/2024 1:40 PM EDT Radiology Service Progress Note PATIENT NAME: Mattie Herron DATE OF SERVICE: May 05, 2024 TIME: 1:38 PM PATIENT IDENTITY VERIFICATION COMPLETED USING TWO (2) IDENTIFIERS: Name and Date of confirmedby patient verbally. FALL SCREENING: Has the patient had 2 falls in the last year or 1 fall with injury or currently using an Ambulatory Assistive Device (Walker, Cane, Wheelchair, Crutches, etc.)? No PATIENT GENDER DATA: Female. status: : No status: NO. PATIENT RELEVANT IMPLANT DATA REVIEWED: Not Applicable PATIENT PRESENTS WITH AN IMPLANTABLE OR ATTACHED SLURRY TANK OPERATOR: No RADIOLOGY DEPARTMENT: Bone Density PERIPHERAL IV DATA: Not applicable SIGNED BY: RT Williams(R) May 05, 2024 1:38 PM documented in this encounterGe[facility]08-05-2024 Telephone encounter Note * Telephone Encounter - Lizzy Byrd MA - 05/02/2024 3:43 PM EDT Patient notified of results. Verbalized understanding with no further questions or concerns. Will contact PCP. Lizzy Byrd MA [facility]08-05-2024 Miscellaneous Notes* Telephone Encounter - Lizzy Byrd MA - 05/02/2024 3:43 PM EDT Patient notified of results. Verbalized understanding with no further questions or concerns. Will contact PCP. Lizzy Byrd MA * Telephone Encounter - Lizzy Byrd MA - 05/02/2024 3:24 PM EDT Left message with to have patient return call. Lizzy Byrd MA * Telephone Encounter - Tram Santana MD - 05/02/2024 2:57 PM EDT Can you let her know her B12 is very low - she should start over the counter B12 supplement 1,000 mcg a day and should touch base with her PCP if they can do B12 injections for her. documented in this encounterGe[facility]08-05-2024 Telephone encounter Note * Telephone Encounter - Lizzy Byrd MA - 05/02/2024 3:24 PM EDT Left message with to have patient return call. Lizzy Byrd MA [facility]08-05-[facility] Telephone encounter Note* Telephone Encounter - Tram Santana MD - 05/02/2024 2:57 PM EDT Can you let her know her B12 is very low - she should start over the counter B12 supplement 1,000 mcg a day and should touch base with her PCP if they can do B12 injections for her. [facility]07-31-[facility] Instructions* Patient Instructions* Tram Santana MD - 04/27/2024 2:38 PM EDT I think you have dementia (probably Alzheimer's but not proven), Parkinson's Disease which is causing the tremor, and peripheral neuropathy which is causing the balance difficulty. For Parkinson's I would just suggest watching it. No medication slows progression, and the tremor is bothersome enough right now to want to add a Parkinson's medication. For neuropathy, will check labs for potential cause and have you continue to use a walker for support. For dementia, start donepezil 5 mg once a day. Watch out for diarrhea, decreased appetite, nightmares, or heart rate changes. If you feel sleepy with it you can take it at bedtime, but bedtime dosingmay increase risk for nightmares from it. Ask your urologist about changing oxybutynin due to potential it can cause memory impairment. Hearing loss can also cause memory loss, keep trying to work on making the hearing aids more functional. Try to stay physically, mentally, and socially active, which is helpful for memory documented in this encounterGeorgetown [facility] Hospital07-31-2024 History of Present illness Narrative* Tram Santana MD - 04/27/2024 1:57 PM EDT NEW PATIENT EVALUATION Subjective HPI Mattie Herron is a 84 year old right-handed female who presents for evaluation of tremor, gait, and cognitive difficulty. Dr. Matheus Fajardo MD is the PCP and referring physician. She is here with her . She reports that she has trouble with ADLs because of physical limitations from right leg. Denies difficulty with manual dexterity. Reports problems standing from the right leg. Uses a walker for ambulation. Used to fall quite a bit until starting to use the walker. Not sure about tremor. Feels like sense of smell is fine. No constipation. Sleep is good. He took over bills she doesn't know when. Denies depression, anxiety, or hallucinations. Couple years college. 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 Denies etoh. 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 No constipation. No dream enactment behavior - No hallucinations - Did a lot to try to resolve her back issues, shots, etc... but sort of gave up on it. Gabapentin is very helpful for left leg pain that she was having. Having right lateral leg pain, spore when shetouches it. - Has borderline DM - Hearing is very poor despite having hearing aids. Has had hearing aids for [address] Millard 11/2021 for LLE weakness / falls, requiring use of a walker. She had had anEMG 08/2021 that showed left peroneal and tibial neuropathies. Imaging showed mild stenosis at L4-5and L5-S1 protrusion encroaching on left L5 nerve root (09/13/21). Significant left leg pain followi ng with pain management. 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 Dr. Millard discussed with EMG provider with concern this was amyotrophy, A1c was 6.1 at the time. Started on low dose gabapentin with improvement in pain, lost to follow up. Medications: Current Outpatient Medications Medication Sig Dispense Refill gabapentin (NEURONTIN) 300 mg capsule Take 1 capsule by mouth three times a day for 90 days. 90 capsule 2 atenolol (TENORMIN) 25 mg tablet Take 1 tablet by mouth once daily. 90 tablet 3 omeprazole (PRILOSEC) 40 mg capsule Take 1 capsule by mouth once daily. 90 capsule 3 PARoxetine (PAXIL) 10 mg tablet Take 1 tablet by mouth once daily. 90 tablet 3 atorvastatin (LIPITOR) 80 mg tablet Take 1 tablet by mouth daily at bedtime. 90 tablet 3 oxybutynin ER (DITROPAN XL) 10 mg 24 hr tablet Take 2 tablets by mouth once daily. 180 tablet 3 nitroglycerin sublingual (NITROQUICK) 0.4 mg SL tablet Dissolve 1 tablet under the tongue as needed. FOR CHEST PAIN. IF NO RELIEF CALL 911 25 tablet 0 triamcinolone acetonide (NASACORT AQ) 55 mcg nasal inhaler Use 2 Sprays in the nose once daily. CPAP CPAP mask and other supplies as needed. Mask per pt preference, tubing, filters, heated humidity, lifetime supplies. Dx: JL on CPAP. G47.33. 1 Device 0 Cholecalciferol, Vitamin D3, 2,000 unit cap Take 2 capsules by mouth once daily. 0 ASPIRIN 81 MG TAB once daily 0 No current facility-administered medications for this visit. ROS ROS: Her ROS was positive for that mentioned in the HPI. Otherwise a 10-point ROS was completed andwas negative. ALLERGIES Allergen Reactions Amoxicillin Mental Status Change Bee Sting Hives, Swelling, Shortness of Breath Percocet [Oxycodone* Other: See Comments Patient passed out Rosuvastatin Other: See Comments Leg cramps. Sulfa (Sulfonamide * Vicodin [Hydrocodon* Other: See Comments Patient passed out from medication Zocor [Simvastatin] Other: See Comments Past Medical History: PAST MEDICAL HISTORY No date: Abnormal mammogram, unspecified Comment: RIGHT 08/12/2006: ABSCESS VULVA No date: Acute gastritis without mention of hemorrhage No date: Allergic rhinitis due to other allergen No date: Anxiety state, unspecified 04/02/2012: Aortic valve sclerosis 03/29/2008: B-COMPLEX DEFIC NEC No date: Benign neoplasm of colon 04/02/2012: Carotid artery disease without cerebral infarction (HCC) 07/07/2005: Chronic rhinitis 07/07/2005: Congenital atresia and stenosis of aorta Comment: Infrarenal stent 200307/07/2005: Coronary atherosclerosis Comment: [place], PT[place] 1988. [place] elev [place], RCA stent November 2003. 07/07/2005: Coronary atherosclerosis of unspecified type of vessel, [place] or graft Comment: [place], PT[place] 1988. [place], RCA stent November 2003. 04/19/2014: DDD (degenerative disc disease), lumbar Comment: Dr. Galen Sanchez, pain management No date: Diaphragmatic hernia without mention of obstruction or gangrene No date: Diverticulosis of colon (without mention of hemorrhage) No date: Esophageal reflux No date: Esophagitis, unspecified 06/10/2016: Essential hypertension 05/19/2019: Excessive sweating, local 03/12/2007: Hemangioma of liver 07/07/2005: Mixed hyperlipidemia 05/19/2019: Nocturnal leg cramps 10/16/2011: JL (obstructive sleep apnea) Comment: [facility] for CPAP 09/14/2012: Osteoporosis, post-menopausal 11/04/2017: Other microscopic hematuria Comment: Dr. Galen Waters. 10/30/2017: Polycythemia No date: Postmenopausal atrophic vaginitis 10/01/2006: Type II or unspecified type diabetes mellitus without mention of complication, not stated as uncontrolled 11/12/2010: Ureterolithiasis 11/03/2015: Venous insufficiency of both lower extremities Family History: FAMILY HISTORY Problem Relation Age of Onset Colon Cancer Mother other (INTESTINAL TUMOR) Mother UPPER INTESTINAL TUMOR Heart Father [place] Diabetes Father Stroke Father MULTIPLE STROKES Cancer Father skin Heart Brother ANGIOPLASTY Colon Cancer Brother Alzheimer's Disease Brother Aneurysm Brother Brother had AD Social History: Social History Tobacco Use Smoking status: Every Day Packs/day: 0.50 Years: 58.00 Additional pack years: 0.00 Total pack years: 29.00 Types: Cigarettes Start date: 06/30/1966 Smokeless tobacco: Never Vaping Use Vaping Use: Never used Substance Use Topics Alcohol use: No Drug use: No No etoh 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 Head: Normocephalic Neck: Supple Heart: RRR Neurologic Examination Mental Status: She is alert. Reg 3/3 TVG (needs help due to hearing loss), Mar 31- x, 2023, Thu x, age 84, WORLD -> DR DELILAH 0/3 -> 0/3 -> 1/3. Affect is appropriate. Cranial Nerves: Pupils are equal and reactive to light. Extraocular movements show full and smooth pursuits. No nystagmus. Visual petersen are full to confrontation. Facial sensation is intact. Facial activation is symmetric. Hearing is quite impaired to conversation despite hearing aids, had to yellfor her to hear. There is mild hypomimia. There is minimal hypophonia. There is no dysarthria. Tongue is midline. Palate elevates symmetrically. Shoulder shrug is normal. Motor: Muscle bulk is normal. Muscle power is full. Mild R> bradykinesia. Mild- mod right mild left rest tremor, subtle postural re-emergent tremor. Mild R>LUE rigidity with activation. Sensory: Vibration absent ankles present knees Reflex: Biceps and brachioradialis is 2+ bilaterally. Patellar reflex 2+ bilaterally. Achilles 0 bilaterally. Coordination: Finger to nose is smooth without ataxia. Gait/station: Wider base, uses walker for support, decreased stride length, minimally stooped, romberg positive even with eyes open. DATA REVIEWED Actual films/image/tracing reviewed and summarized as follows: [facility] 08/03/09 normal Old records reviewed and summarized as follows: Reviewed prior neuro records summarized in HPI EMG 12/27/21 1. 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 2. Chronic motor axon loss changes in muscles within the bilateral L2-L5 myotomes consistent with with chronic radiculopathies affecting these levels, mild in degree at L2 and more moderate to severe at L3-L5. This is accompanied by findings of active axon loss at L5 bilaterally and L3/4 on the left. 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 Her examination demonstrates severe hearing loss, disorientation, impaired recall, R>L mild parkinsonism, LE numbness, and sensory ataxic gait. We discussed her presentation, which is complicated. 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 Regarding dementia, probably Alzheimer's based on pattern but also has severe hearing loss and she is on oxybutynin which could be contributing. 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 Start donepezil 5 mg daily, discussed potential side effects. Encouraged activity. Ask urology about alternative bladder medications. For Parkinson's Disease, would just recommend observation for now. Tremor is mild in severity and not impacting his function. Gait is from sensory ataxia not Parkinson's, which levodopa doesn't help anyways. 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 Continue use of walker. She should return to see me in 4 months. Tram Santana MD [facility] Neurology documented in this encounterGe[facility] Telephone encounter Note * Telephone Encounter - Agnieszka Candelario - 04/11/2024 10:55 AM EDT Prescription Refill Information The patient has been identified by name and date of : Yes Caregiver verified no other encounters exist for this prescription request: Yes Caregiver confirmed with patient/requestor that no other refills are due, in the near future, with this provider at this time: Yes The last office visit in the department: 08-22-24 Does the patient have a future office visit with this provider/department: Yes Requested Prescriptions Pending Prescriptions Disp Refills gabapentin (NEURONTIN) 300 mg capsule 90 capsule 2 Sig: Take 1 capsule by mouth three times a day for 90 days. Agnieszka Montemayor April 11, 2024 10:56 AM [facility]07-15-2024 Miscellaneous Notes* Telephone Encounter - Agnieszka Candelario - 04/11/2024 10:55 AM EDT Prescription Refill Information The patient has been identified by name and date of : Yes Caregiver verified no other encounters exist for this prescription request: Yes Caregiver confirmed with patient/requestor that no other refills are due, in the near future, with this provider at this time: Yes The last office visit in the department: 08-22-24 Does the patient have a future office visit with this provider/department: Yes Requested Prescriptions Pending Prescriptions Disp Refills gabapentin (NEURONTIN) 300 mg capsule 90 capsule 2 Sig: Take 1 capsule by mouth three times a day for 90 days. Agnieszka Montemayor April 11, 2024 10:56 AM documented in this encounterGe[facility]06-12-[facility] Nurse Note* Karlee Ingram LPN - 03/09/2024 1:08 PM EDT REVIEW OF SYSTEMS: General: The patient denies fatigue, denies weight loss, denies weight gain, denies feeling hot, and denies feelings of cold. Eyes: The patient denies glaucoma, denies eye injury/surgery, wears glasses or contacts. Ear/Nose/Throat: The patient NOTES allergies, denies hayfever, denies ear infections, and denies bloody noses. Cardiovascular: The patient denies chest pain, NOTES heart disease, denies high blood pressure,denies cardiac stent, NOTES prior heart attack, NOTES irregular heart beat, NOTES high cholesterol, denies poor circulation, denies heart failure, other cardiac issues, denies claudication, denies cold feet, denies peripheral arterial stent. Respiratory: The patient denies tuberculosis, denies pneumonia, denies frequent cough, denies pulmonary embolism, denies shortness of breath, and denies coughing up blood. Gastrointestinal: The patient denies difficulty swallowing, NOTES acid reflux, denies ulcers, denies vomiting, denies jaundice/hepatitis, denies gallbladder problems, denies black or tarry stools, denies hemorrhoids, denies bleeding from rectum, denies diverticulitis, denies constipation, denies diarrhea, denies loss of stool control, and denies hernias. Kidney/Bladder: The patient denies kidney stones, denies urine infections, and denies bloody urine. Skin: The patient denies a history of skin cancer, denies bleeding/changing moles, and denies a history of skin rash. Neurologic: The patient denies a history of epilepsy/convulsions, denies headaches, denies head/spinal injuries, and denies stroke/TIA. Psychiatric: The patient denies psychiatric medications, denies depression, and denies voices, denies substance abuse. Endocrine: The patient denies thyroid disorders, NOTES diabetes, and denies hormonal problems. Hematologic: The patient denies a history of bruising, denies bleeding, and denies anemia, denies blood clots. Infections: The patient denies a history of measles and mumps, denies rheumatic fever, and denies sexually transmitted diseases. Musculoskeletal: The patient denies back pain/injury, denies back problems, denies sciatica, deniesknee/foot trouble, denies arthritis, or denies gout. When was patient's last Mammogram screening? 2019 Last Colonoscopy: 2017 Karlee Ingram LPN [facility]06-12-2024 Nurse Note* Karlee IngramIZZY - 03/09/2024 1:08 PM EDT REVIEW OF SYSTEMS: General: The patient denies fatigue, denies weight loss, denies weight gain, denies feeling hot, and denies feelings of cold. Eyes: The patient denies glaucoma, denies eye injury/surgery, wears glasses or contacts. Ear/Nose/Throat: The patient NOTES allergies, denies hayfever, denies ear infections, and denies bloody noses. Cardiovascular: The patient denies chest pain, NOTES heart disease, denies high blood pressure,denies cardiac stent, NOTES prior heart attack, NOTES irregular heart beat, NOTES high cholesterol, denies poor circulation, denies heart failure, other cardiac issues, denies claudication, denies cold feet, denies peripheral arterial stent. Respiratory: The patient denies tuberculosis, denies pneumonia, denies frequent cough, denies pulmonary embolism, denies shortness of breath, and denies coughing up blood. Gastrointestinal: The patient denies difficulty swallowing, NOTES acid reflux, denies ulcers, denies vomiting, denies jaundice/hepatitis, denies gallbladder problems, denies black or tarry stools, denies hemorrhoids, denies bleeding from rectum, denies diverticulitis, denies constipation, denies diarrhea, denies loss of stool control, and denies hernias. Kidney/Bladder: The patient denies kidney stones, denies urine infections, and denies bloody urine. Skin: The patient denies a history of skin cancer, denies bleeding/changing moles, and denies a history of skin rash. Neurologic: The patient denies a history of epilepsy/convulsions, denies headaches, denies head/spinal injuries, and denies stroke/TIA. Psychiatric: The patient denies psychiatric medications, denies depression, and denies voices, denies substance abuse. Endocrine: The patient denies thyroid disorders, NOTES diabetes, and denies hormonal problems. Hematologic: The patient denies a history of bruising, denies bleeding, and denies anemia, denies blood clots. Infections: The patient denies a history of measles and mumps, denies rheumatic fever, and denies sexually transmitted diseases. Musculoskeletal: The patient denies back pain/injury, denies back problems, denies sciatica, deniesknee/foot trouble, denies arthritis, or denies gout. When was patient's last Mammogram screening? 2019 Last Colonoscopy: 2016 Karlee Ingram LPN documented in this [facility]Ge[facility]06-[facility]24 History of Present illness Narrative* Marisa Sheldon APRN.OUTSIDE SALES ACCOUNT REPRESENTATIVE - 03/09/2024 1:07 PM EDT HISTORY AND PHYSICAL Mattie Herron 1940 REFERRING PHYSICIAN: Matheus Fajardo MD CHIEF COMPLAINT: Consult (Screening for colon cancer) HPI: The patient is a 84 year old female with a complaint of history of colonic poylps. Kami notesthat Dr. Fajardo's office scheduled this appointment for her and that she is not having any symptoms of concern and is not in favor of having a colonoscopy. She denies abd pain, blood in stool, changes in bowel habits, weight loss, dysphagia, reflux, vomiting, constipation, or diarrhea. Kami does note occasional reflux aggravated by certain foods but the 40mg omeprazole daily keeps symptoms controlled. Kami has a history of colonic polyps. Her last scope was in [address] Wagner and she had multiple polyps removed which returned at tubular adenomas. She was told to return in 3 years for screening colonoscopy-this was never completed. PAST MEDICAL HISTORY Diagnosis Date Abnormal mammogram, unspecified RIGHT ABSCESS VULVA 08/12/2006 Acute gastritis without mention of hemorrhage Allergic rhinitis due to other allergen Anxiety state, unspecified Aortic valve sclerosis 04/02/2012 B-COMPLEX DEFIC NEC 03/29/2008 Benign neoplasm of colon Carotid artery disease without cerebral infarction (HCC) 04/02/2012 Chronic rhinitis 07/07/2005 Congenital atresia and stenosis of aorta 07/07/2005 Infrarenal stent 2003 Coronary atherosclerosis 07/07/2005 [place], [place], [place]CA stent November 2003. Coronary atherosclerosis of unspecified type of vessel, dry [place] or graft 07/07/2005 [place], [place]. [place]CA stent November 2003. DDD (degenerative disc disease), lumbar 04/19/2014 Dr. Galen Sanchez, pain management Diaphragmatic hernia without mention of obstruction or gangrene Diverticulosis of colon (without mention of hemorrhage) Esophageal reflux Esophagitis, unspecified Essential hypertension 06/10/2016 Excessive sweating, local 05/19/2019 Hemangioma of liver 03/12/2007 Mixed hyperlipidemia 07/07/2005 Nocturnal leg cramps 05/19/2019 JL (obstructive sleep apnea) 10/16/2011 DME [facility] for CPAP Osteoporosis, post-menopausal 09/14/2012 Other microscopic hematuria 11/04/2017 Dr. Galen Waters. Polycythemia 10/30/2017 Postmenopausal atrophic vaginitis Type II or unspecified type diabetes mellitus without mention of complication, not stated as uncontrolled 10/01/2006 Ureterolithiasis 11/12/2010 Venous insufficiency of both lower extremities 11/03/2015 PAST SURGICAL HISTORY Procedure Laterality Date BX BREAST PERC VACUUM/ROTN 09/05/08 RIGHT BREAST COLONOSCOPY FLX DX W/COLLJ SPEC WHEN PFRMD 08/05/05 Colonoscopy COLONOSCOPY FLX DX W/COLLJ SPEC WHEN PFRMD 10/06/2006 Colonoscopy COLONOSCOPY FLX DX W/COLLJ SPEC WHEN PFRMD 06/07/2012 Colonoscopy COLONOSCOPY FLX DX W/COLLJ SPEC WHEN PFRMD 06/30/2013 Colonoscopy COLSC FLX W/RMVL OF TUMOR POLYP LESION SNARE TQ 05/22/2017 multiple [id number] follow-up CORONARY ENDARTERCOMY OPEN ANY METHOD 1989 Angioplasty CORRECT BUNION,SIMPLE 09/08/2008 hammertoe CYSTOSCOPY 10/26/2017 EGD TRANSORAL BIOPSY SINGLE/MULTIPLE 09/30/07 EXC BREAST LES PREOP PLMT RAD MARKER OPEN 1 LES 09/05/08 INSERT INTRACORONARY STENT 11/2003 RIGHT CORONARY STENT INSERT INTRACORONARY STENT 02/2004 STENT INFRARENAL ABDOMINAL AORTA PAST SURGICAL HISTORY OF 08/30/2012 Right thumb, wrist surgery PAST SURGICAL HISTORY OF Left 02/15/2018 Left cataract removed STEREOTACTIC CORE BIOPSY 09/05/08 Current Outpatient Medications Medication Sig atenolol (TENORMIN) 25 mg tablet Take 1 tablet by mouth once daily. gabapentin (NEURONTIN) 300 mg capsule Take 1 capsule by mouth three times a day for 90 days. omeprazole (PRILOSEC) 40 mg capsule Take 1 capsule by mouth once daily. PARoxetine (PAXIL) 10 mg tablet Take 1 tablet by mouth once daily. atorvastatin (LIPITOR) 80 mg tablet Take 1 tablet by mouth daily at bedtime. oxybutynin ER (DITROPAN XL) 10 mg 24 hr tablet Take 2 tablets by mouth once daily. nitroglycerin sublingual (NITROQUICK) 0.4 mg SL tablet Dissolve 1 tablet under the tongue as needed. FOR CHEST PAIN. IF NO RELIEF CALL 911 triamcinolone acetonide (NASACORT AQ) 55 mcg nasal inhaler Use 2 Sprays in the nose once daily. CPAP CPAP mask and other supplies as needed. Mask per pt preference, tubing, filters, heated humidity, lifetime supplies. Dx: JL on CPAP. G47.33. Cholecalciferol, Vitamin D3, 2,000 unit cap Take 2 capsules by mouth once daily. ASPIRIN 81 MG TAB once daily No current facility-administered medications for this visit. ALLERGIES: Amoxicillin, Bee Sting, Percocet [Oxycodone-Acetaminophen], Rosuvastatin, Sulfa (Sulfonamide Antibiotics), Vicodin [Hydrocodone- Acetaminophen], and Zocor [Simvastatin] PERSONAL HISTORY: Social History Tobacco Use Smoking status: Every Day Packs/day: 0.50 Years: 58.00 Additional pack years: 0.00 Total pack years: 29.00 Types: Cigarettes Start date: 06/30/1966 Smokeless tobacco: Never Vaping Use Vaping Use: Never used Substance Use Topics Alcohol use: No Drug use: No FAMILY HISTORY: FAMILY HISTORY Problem Relation Age of Onset Colon Cancer Mother other (INTESTINAL TUMOR) Mother UPPER INTESTINAL TUMOR Heart Father [place] Diabetes Father Stroke Father MULTIPLE STROKES Cancer Father skin Heart Brother ANGIOPLASTY Colon Cancer Brother Alzheimer's Disease Brother Aneurysm Brother REVIEW OF SYMPTOMS: The review of systems data was entered by the nurse and reviewed by ia Nursing Notes: Karlee Ingram LPN 03/09/2024 1:10 PM Signed REVIEW OF SYSTEMS: General: The patient denies fatigue, denies weight loss, denies weight gain, denies feeling hot, and denies feelings of cold. Eyes: The patient denies glaucoma, denies eye injury/surgery, wears glasses or contacts. Ear/Nose/Throat: The patient NOTES allergies, denies hayfever, denies ear infections, and denies bloody noses. Cardiovascular: The patient denies chest pain, NOTES heart disease, denies high blood pressure,denies cardiac stent, NOTES prior heart attack, NOTES irregular heart beat, NOTES high cholesterol, denies poor circulation, denies heart failure, other cardiac issues, denies claudication, denies cold feet, denies peripheral arterial stent. Respiratory: The patient denies tuberculosis, denies pneumonia, denies frequent cough, denies pulmonary embolism, denies shortness of breath, and denies coughing up blood. Gastrointestinal: The patient denies difficulty swallowing, NOTES acid reflux, denies ulcers, denies vomiting, denies jaundice/hepatitis, denies gallbladder problems, denies black or tarry stools, denies hemorrhoids, denies bleeding from rectum, denies diverticulitis, denies constipation, denies diarrhea, denies loss of stool control, and denies hernias. Kidney/Bladder: The patient denies kidney stones, denies urine infections, and denies bloody urine. Skin: The patient denies a history of skin cancer, denies bleeding/changing moles, and denies a history of skin rash. Neurologic: The patient denies a history of epilepsy/convulsions, denies headaches, denies head/spinal injuries, and denies stroke/TIA. Psychiatric: The patient denies psychiatric medications, denies depression, and denies voices, denies substance abuse. Endocrine: The patient denies thyroid disorders, NOTES diabetes, and denies hormonal problems. Hematologic: The patient denies a history of bruising, denies bleeding, and denies anemia, denies blood clots. Infections: The patient denies a history of measles and mumps, denies rheumatic fever, and denies sexually transmitted diseases. Musculoskeletal: The patient denies back pain/injury, denies back problems, denies sciatica, deniesknee/foot trouble, denies arthritis, or denies gout. When was patient's last Mammogram screening? 2019 Last Colonoscopy: 2017 Karlee Ingram LPN PHYSICAL EXAMINATION: General: The patient is 84 year old female, well nourished, well hydrated in no acute distress. Thepatient is oriented to time, place, and person. VITALS: Blood pressure 122/76, pulse 72, temperature 36.4 C (97.6 F), height 167.6 cm (5' 6), weight 75.2 kg (165 lb 12.8 oz), SpO2 95%. Body mass index is 26.76 kg/m . HEENT: Normal cephalic, ataumatic, pupils are equally round, sclera are anicteric, mucous membranesare moist, oropharynx is clear. Neck has no masses, asymmetry or lymphadenopathy. Respiratory: Clear to auscultation and percussion. Normal respiratory excursion and pattern. Cardiac: Examination is regular rate and rhythm. Normal S1/S2 Abdominal exam: Soft, nontender, with no palpable masses. No hepatosplenomegaly. No palpable hernias. Extremities: no clubbing, cyanosis or edema. No adenopathy. LABORATORY VALUES: As Noted RADIOLOGIC STUDIES: As Noted ASSESSMENT/PLAN: Kami expressed not wanting to do the colonoscopy since she isn't experiencing any symptoms and hasconcerns with completing the bowel prep. We discussed her risk factors including history of prior colonic polyps and family history (mother with colon cancer) and the benefits of screening colonoscopy. We also discussed how symptoms of colon cancer do not usually appear until advanced stages of thedisease however, Kami notes if I wasn't regular or had changes I would be more concerned. We discussed reasons to return to the clinic for endoscopy and red flag symptoms. 1. Benign neoplasm of colon, unspecified part of colon - ICD9: 211.3, ICD10: D12.6 - discussed reasons to RTC for endoscopy My findings have been communicated to Dr. Matheus Fajardo MD via shared medical record. This note will be forwarded to Dr. Matheus Fajardo MD. Return to Clinic: The patient is instructed to follow-up with me as needed. Patient verbalized understanding of all above and agreed with the plan Marisa Sheldon APRN.CHELA [facility] Telephone encounter Note * Telephone Encounter - Mattie Gerber - 02/23/2024 1:48 PM EDT 2nd call attempt, left vm [facility]05-28-2024 Miscellaneous Notes* Telephone Encounter - Mattie Gerber - 02/23/2024 1:48 PM EDT 2nd call attempt, left vm * Telephone Encounter - Niki Paul MA - 02/18/2024 7:16 PM EDT Please assist patient with scheduling GEN SURG consult for colonoscopy. Niki Paul MA documented in this encounterGe[facility]05-23-[facility]24 Telephone encounter Note * Telephone Encounter - Niki Paul MA - 02/18/2024 7:16 PM EDT Please assist patient with scheduling GEN SURG consult for colonoscopy. Niki Paul MA [facility]05-23-[facility]24 History of Present illness Narrative* Matheus Fajardo MD - 02/18/2024 12:14 PM EDT This note was created using [employer]. Subjective Mattie Herron is a 84 year old female here with Anand. She was doing reasonably well. Cognitive issues continue to be of concern. Neurology consult was cancelled due to Anand's injury, but can now be rescheduled. Her home health travel pt fell out of their network and they were advised to transfer c ardiology care. After the visit, I realized she had no follow up of colon polyps since 2017. I called patient and spouse and they agreed to see surgery for consideration of colonoscopy. Review of Systems Constitutional: Negative. Respiratory: Negative. Cardiovascular: Negative. Gastrointestinal: Negative. Musculoskeletal: Positive for gait problem. Neurological: Positive for tremors. Psychiatric/Behavioral: Positive for decreased concentration. ACTIVE PROBLEM LIST Coronary Atherosclerosis Mixed Hyperlipidemia Esophageal Reflux Anxiety State Chronic Rhinitis Benign Neoplasm of Colon Tobacco Use Disorder Aortic Valve Sclerosis Bilateral Carotid Artery Stenosis Osteoporosis, Post-Menopausal Ddd (Degenerative Disc Disease), Lumbar Vitamin D Deficiency Jl On Cpap Essential Hypertension Diabetic Peripheral Neuropathy Associated With Type 2 Diabetes Mellitus (Hcc) Polycythemia Urgency Incontinence Tremor, Essential Gait Abnormality Cognitive Decline Social History Tobacco Use Smoking status: Every Day Packs/day: 0.50 Years: 58.00 Additional pack years: 0.00 Total pack years: 29.00 Types: Cigarettes Start date: 06/30/1966 Smokeless tobacco: Never Substance Use Topics Alcohol use: No Drug use: No Current Outpatient Medications Medication Sig atenolol (TENORMIN) 25 mg tablet Take 1 tablet by mouth once daily. gabapentin (NEURONTIN) 300 mg capsule Take 1 capsule by mouth three times a day for 90 days. omeprazole (PRILOSEC) 40 mg capsule Take 1 capsule by mouth once daily. PARoxetine (PAXIL) 10 mg tablet Take 1 tablet by mouth once daily. atorvastatin (LIPITOR) 80 mg tablet Take 1 tablet by mouth daily at bedtime. oxybutynin ER (DITROPAN XL) 10 mg 24 hr tablet Take 2 tablets by mouth once daily. nitroglycerin sublingual (NITROQUICK) 0.4 mg SL tablet Dissolve 1 tablet under the tongue as needed. FOR CHEST PAIN. IF NO RELIEF CALL 911 triamcinolone acetonide (NASACORT AQ) 55 mcg nasal inhaler Use 2 Sprays in the nose once daily. CPAP CPAP mask and other supplies as needed. Mask per pt preference, tubing, filters, heated humidity, lifetime supplies. Dx: JL on CPAP. G47.33. Cholecalciferol, Vitamin D3, 2,000 unit cap Take 2 capsules by mouth once daily. ASPIRIN 81 MG TAB once daily No current facility-administered medications for this visit. Objective BP 120/72 (BP Site: Left Arm, BP Position: Sitting, BP Cuff Size: Large Adult) Pulse 60 Temp 36.7 C (98.1 F) (Temporal) Resp 20 Ht 167.6 cm (5' 6) Wt 73.9 kg (163 lb) BMI 26.31 kg/m Physical Exam Constitutional: Appearance: She is not ill-appearing. Cardiovascular: Rate and Rhythm: Normal rate and regular rhythm. Heart sounds: S1 normal and S2 normal. Murmur heard. Systolic murmur is present with a grade of 1/6. Comments: At base. Pulmonary: Effort: No respiratory distress. Breath sounds: No wheezing or rales. Abdominal: Palpations: Abdomen is soft. Tenderness: There is no abdominal tenderness. Musculoskeletal: Right lower leg: No edema. Left lower leg: No edema. Neurological: General: No focal deficit present. Mental Status: She is alert. Mental status is at baseline. Motor: Tremor present. Gait: Gait abnormal. Comments: Using rollator. Assessment and Plan ASSESSMENT/PLAN: 1. Medicare annual wellness visit, subsequent - ICD9: V70.0, ICD10: Z00.00 (primary diagnosis) See wellness note. 2. Mixed hyperlipidemia - ICD9: 272.2, ICD10: E78.2 - Control undetermined, due for labs - Continue current medications 3. Vitamin D deficiency - ICD9: 268.9, ICD10: E55.9 Recheck - VITAMIN D 25 HYDROXY 4. Polycythemia - ICD9: 238.4, ICD10: D75.1 Recheck. - COMPLETE BLOOD COUNT AND DIFFERENTIAL 5. 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) - ICD9: 250.60, 357.2, ICD10: E11.42 - Diet controlled - COMPREHENSIVE METABOLIC PANEL - LIPID PANEL BASIC - HEMOGLOBIN A1C 6. Osteoporosis, post-menopausal - ICD9: 733.01, ICD10: M81.0 - Reviewed the need for Calcium and Vitamin D supplements and weight bearing exercise as tolerated - DXA-AXIAL SKELETON - Patient did not tolerate oral medications alendronate and ibandronate in the past. - Medications suggested: Prolia SC every 6 months, or Reclast IV yearly. - They will wait for updated BMD result. 7. Tremor, essential - ICD9: 333.1, ICD10: G25.0 - To reschedule with neurology. 8. Cognitive decline - ICD9: 294.9, ICD10: R41.89 - See #7. 9. Atherosclerosis of [place] coronary artery of [place] heart without angina pectoris - ICD9: 414.01, ICD10: I25.10 - [facility] - CONSULT TO CARDIOLOGY 10. Benign neoplasm of colon, unspecified part of colon - ICD9: 211.3, ICD10: D12.6 I spoke to patient and spouse. - CONSULT TO GENERAL SURGERY Matheus Fajardo MD * Matheus Fajardo MD - 02/18/2024 9:48 AM EDT Images from the original note were not included. Mattie Herron is a 84 year old female here for a Medicare wellness visit. Medicare Health Risk Assessment General Health Good Exercise: Minutes/Day 0 min Exercise: Days/Week 0 days Alcohol: Daily Use Never Alcohol: Drinks/Day Patient does not drink Alcohol: 6 or more drinks Never Feel off balance Yes Concerns: Teeth/Dentures No Concerns: Sexual function No Troubled by feelings None of the above Frequency: Eating healthy diet Several days ADLs requiring help Walking; Managing urine leakage Safety precautions in home/vehicle Yes Smoke, vape, chews tobacco Yes, but I'm not ready to quit Difficulty hearing Yes, I wear a hearing aid Difficulty seeing No Current Providers Specialists: I have reviewed specialist-related care of the patient in the medical record. Current care team: Patient Care Team: Matheus Fajardo MD as PCP - General Outside specialists seen: [facility]. No longer in network. [facility]. Needs rescheduled. LEONOR Linares, [facility]. Medical/Family history review Reviewed and updated problem list, medical/surgical/family/social history, medications, and allergies. Opioid use review Opioid Medications (last 90 days) No data to display Depression screening Depression Screening PHQ-2 Score 10/15/2023 0 Depression screening tool completed and reviewed. Based on score and interview, patient is not at risk for depression. Screening tool discussed with patient, and I recommended no further intervention at this time. Cognitive screening Cognitive screening reviewed and Recommended referral for further evaluation (score 0-2). Functional Observation Was the patient's Timed Up & Go test unsteady or ? 12 seconds? No Advance Care Planning Patient did not wish or was not able to name a surrogate decision maker or provide an advance care plan Measurements BP 120/72 Pulse 60 Temp (Src) 98.1 (Temporal) Resp 20 Ht 5' 6 (1.68m) Wt 163 lb (73.9kg) BMI 26.32 kg/(m^2). Vision Screening: Follows with optometry/ophthalmology Right: 20/30 Left: 20/ 25 Both: 20/30 Assessment/Plan Medicare annual wellness visit, subsequent (Z00.00) - Counseled on healthy diet and regular exercise - Fall avoidance information provided - Personalized prevention plan provided - Vaccine recommended: Tdap at pharmacy. documented in this encounterGe[facility]04-03-2024 Miscellaneous Notes* Telephone Encounter - Bo Borden MA - 12/30/2023 10:33 AM EDT Requested Prescriptions Pending Prescriptions Disp Refills atenolol (TENORMIN) 25 mg tablet 90 tablet 3 Sig: Take 1 tablet by mouth once daily. gabapentin (NEURONTIN) 300 mg capsule 90 capsule 2 Sig: Take 1 capsule by mouth three times a day for 90 days. Date of last office visit in primary care: 10/15/2023 Date of next office visit in primary care: 02/18/2024 Please advise. Thank you. Bo Borden MA. * Telephone Encounter - Katherin Bruce - 12/30/2023 10:28 AM EDT Patient has been identified by name and date of : Yes Requested Prescriptions Pending Prescriptions Disp Refills atenolol (TENORMIN) 25 mg tablet 90 tablet 3 Sig: Take 1 tablet by mouth once daily. gabapentin (NEURONTIN) 300 mg capsule 90 capsule 2 Sig: Take 1 capsule by mouth three times a day for 90 days. RX INSTRUCTIONS: Patient aware RX will be sent to pharmacy. No need to notify patient. Katherin Montemayor documented in this encounterGeorgetown [facility] Hospital09-28-2023 Miscellaneous Notes* Telephone Encounter - Asher Lowe - 06/25/2023 4:10 PM EDT No active requests/ referrals for urine, only active requests for blood work labs * Telephone Encounter - Matheus Fajardo MD - 06/23/2023 3:54 AM EDT Appointment needed next month with fasting labs and urine test. Please schedule. * Telephone Encounter - Bo Borden Ma - 06/22/2023 4:49 PM EDT JENAE: 02/09/2023 Last refill: 03/02/2023 QTY: 90 Refills: 2 * Telephone Encounter - Hyacinth Raymundo - 06/22/2023 4:13 PM EDT Pharmacy verified in Epic Patient has been identified by name and date of : Yes Patient aware RX will be sent to pharmacy. No need to notify patient. Spouse phones for refill(s): Requested Prescriptions Pending Prescriptions Disp Refills gabapentin (NEURONTIN) 300 mg capsule 90 capsule 2 Sig: Take 1 capsule by mouth three times daily for 90 days. Date of last office visit : 02/11/2023 Date of next office visit : Visit date not found Last 2 Encounter Wt Readings: Date: Wt: 02/11/2023 78 kg (172 lb) 02/03/2023 79.3 kg (174 lb 12.8 oz) Not applicable Please advise. Hyacinth Montemayor documented in this encounterGeorgetown [facility]al Hospital07-03-2023 Miscellaneous Notes* Telephone Encounter - Bo Borden Ma - 03/30/2023 4:09 PM EDT JENAE: 02/11/2023 Last refill: 01/05/2023 QTY: 90 Refills: 0 Patient's request for medication is as follows: Requested Prescriptions Pending Prescriptions Disp Refills atorvastatin (LIPITOR) 80 mg tablet 90 tablet 0 Sig: Take 1 tablet by mouth daily at bedtime. Please approve the above prescription(s) to electronically send to pharmacy. Bo Borden Ma * Telephone Encounter - Neida Dougherty - 03/30/2023 3:48 PM EDT Patient has been identified by name and date of : Yes Requested Prescriptions Pending Prescriptions Disp Refills atorvastatin (LIPITOR) 80 mg tablet 90 tablet 0 Sig: Take 1 tablet by mouth daily at bedtime. RX INSTRUCTIONS: Patient aware RX will be sent to pharmacy. No need to notify patient. Neida Dougherty documented in this encounterGeorgetown [facility]al Hospital06-27-2023 Miscellaneous Notes* Telephone Encounter - Vivian Samuels LPN - 03/24/2023 4:21 PM EDT Patient has been identified by name and date of : Yes Patient phones for refill(s): Requested Prescriptions Pending Prescriptions Disp Refills PARoxetine (PAXIL) 10 mg tablet 90 tablet 1 Sig: Take 1 tablet by mouth once daily. Date of last office visit in primary care: 02/11/2023 Advised to follow-up in 6 months, no appt scheduled. Last 2 Encounter Wt Readings: Date: Wt: 02/11/2023 78 kg (172 lb) 02/03/2023 79.3 kg (174 lb 12.8 oz) Previous labs/tests for medication: Not applicable Please advise. Thank you. Vivian Samuels LPN * Telephone Encounter - Minnie Warren - 03/24/2023 9:42 AM EDT Patient has been identified by name and date of : Yes Last office visit in this department: 02/11/2023 RX INSTRUCTIONS: Patient aware RX will be sent to pharmacy. No need to notify patient. Patient phones requesting refills as follows: Requested Prescriptions Pending Prescriptions Disp Refills PARoxetine (PAXIL) 10 mg tablet 90 tablet 1 Sig: Take 1 tablet by mouth once daily. Please review and advise. Minnie Warren documented in this encounterCleveland [id number] Miscellaneous Notes* Telephone Encounter - Bo Borden Ma - 03/02/2023 3:13 PM EDT JENAE: 02/11/2023 Last refill: 12/01/2022 QTY: 90 Refills: 2 * Telephone Encounter - Elizabeth Francis - 03/02/2023 3:12 PM EDT Patient has been identified by name and date of : Yes Requested Prescriptions Pending Prescriptions Disp Refills gabapentin (NEURONTIN) 300 mg capsule 90 capsule 2 Sig: Take 1 capsule by mouth three times daily for 90 days. RX INSTRUCTIONS: Patient aware RX will be sent to pharmacy. No need to notify patient. Elizabeth Francis documented in this encounterGeorgetown [facility]al Hospital05-10-2023 Miscellaneous Notes* Telephone Encounter - Rosita Mack LPN - 02/04/2023 3:06 PM EDT Patient returned call and went over notes below and scheduled medicare wellness for 02/11/2023 with SOFTWARE DEVELOPMENT ADVISOR. * Telephone Encounter - Cristina Montemayor - 02/04/2023 9:06 AM EDT 1st attempt left message to return call to r/s missed November appt. * Telephone Encounter - Cookie Dumas APRN.CNP - 02/03/2023 1:50 PM EDT Patient no showed appointment in November, needs rescheduled Cookie Dumas APRN.CNP * Telephone Encounter - Reina Walters LPN - 02/03/2023 1:33 PM EDT Patient has been identified by name and date of : Yes Requested Prescriptions Pending Prescriptions Disp Refills nitroglycerin sublingual (NITROQUICK) 0.4 mg SL tablet 25 tablet 1 Sig: Dissolve 1 tablet under the tongue as needed. FOR CHEST PAIN. IF NO RELIEF CALL 911 RX INSTRUCTIONS: Patient presented to [facility], reported Nitroglycerin, [facility]. Reina Walters LPN documented in this encounterGeorgetown Behavioral Hospital05-09-2023 History of Present illness Narrative* Oswaldo Woods APRN.OUTSIDE SALES ACCOUNT REPRESENTATIVE - 02/03/2023 10:07 AM EDT Images from the original note were not included. Subjective HPI [place] female presents urgent care chief complaint sore on left ear. Duration of symptom 1 week. Associated symptoms pain drainage redness. Patient states pain does seem to be improving. Presents today for evaluation. Has been using Neosporin seems to help. Does not recall any trauma to the ear. Does wear hearing aids. No at internal pain. Pain is only on helix of ear. Denies any fever body acheschills productive cough chest pain shortness of breath pleuritic pain hemoptysis nausea vomiting abdominal pain change in bowel or bladder habits. Past medical history prescription medication use andallergies reviewed. .Patient presents with: Pain: Pt reported (LT) ear pain external reported redness x1 wk. PAST MEDICAL HISTORY Diagnosis Date Abnormal mammogram, unspecified RIGHT ABSCESS VULVA 08/12/2006 Acute gastritis without mention of hemorrhage Allergic rhinitis due to other allergen Anxiety state, unspecified Aortic valve sclerosis 04/02/2012 B-COMPLEX DEFIC NEC 03/29/2008 Benign neoplasm of colon Carotid artery disease without cerebral infarction (HCC) 04/02/2012 Chronic rhinitis 07/07/2005 Congenital atresia and stenosis of aorta 07/07/2005 Infrarenal stent 2003 Coronary atherosclerosis 07/07/2005 [place], PTCA 1988. [place], RCA stent November 2003. Coronary atherosclerosis of unspecified type of vessel, [place] or graft 07/07/2005 [place], PTCA 1988. [place], RCA stent November 2003. DDD (degenerative disc disease), lumbar 04/19/2014 Dr. Galen Sanchez, pain management Diaphragmatic hernia without mention of obstruction or gangrene Diverticulosis of colon (without mention of hemorrhage) Esophageal reflux Esophagitis, unspecified Essential hypertension 06/10/2016 Hemangioma of liver 03/12/2007 Mixed hyperlipidemia 07/07/2005 JL (obstructive sleep apnea) 10/16/2011 DME [facility] for CPAP Osteoporosis, post-menopausal 09/14/2012 Other microscopic hematuria 11/04/2017 Dr. Galen Waters. Polycythemia 10/30/2017 Postmenopausal atrophic vaginitis Type II or unspecified type diabetes mellitus without mention of complication, not stated as uncontrolled 10/01/2006 Ureterolithiasis 11/12/2010 Venous insufficiency of both lower extremities 11/03/2015 PAST SURGICAL HISTORY Procedure Laterality Date BX BREAST PERC VACUUM/ROTN 09/05/08 RIGHT BREAST COLONOSCOPY FLX DX W/COLLJ SPEC WHEN PFRMD 08/05/05 Colonoscopy COLONOSCOPY FLX DX W/COLLJ SPEC WHEN PFRMD 10/06/2006 Colonoscopy COLONOSCOPY FLX DX W/COLLJ SPEC WHEN PFRMD 06/07/2012 Colonoscopy COLONOSCOPY FLX DX W/COLLJ SPEC WHEN PFRMD 06/30/2013 Colonoscopy COLSC FLX W/RMVL OF TUMOR POLYP LESION SNARE TQ 05/22/2017 multiple [id number] follow-up CORONARY ENDARTERCOMY OPEN ANY METHOD 1989 Angioplasty CORRECT BUNION,SIMPLE 09/08/2008 hammertoe CYSTOSCOPY 10/26/2017 EGD TRANSORAL BIOPSY SINGLE/MULTIPLE 09/30/07 EXC BREAST LES PREOP PLMT RAD MARKER OPEN 1 LES 09/05/08 INSERT INTRACORONARY STENT 11/2003 RIGHT CORONARY STENT INSERT INTRACORONARY STENT 02/2004 STENT INFRARENAL ABDOMINAL AORTA PAST SURGICAL HISTORY OF 08/30/2012 Right thumb, wrist surgery PAST SURGICAL HISTORY OF Left 02/15/2018 Left cataract removed STEREOTACTIC CORE BIOPSY 09/05/08 ALLERGIES Amoxicillin, Bee Sting, Percocet [Oxycodone-Acetaminophen], Rosuvastatin, Sulfa (Sulfonamide Antibiotics), Vicodin [Hydrocodone- Acetaminophen], and Zocor [Simvastatin] MEDICATIONS atorvastatin (LIPITOR) 80 mg tablet Take 1 tablet by mouth daily at bedtime. gabapentin (NEURONTIN) 300 mg capsule Take 1 capsule by mouth three times daily for 90 days. PARoxetine (PAXIL) 10 mg tablet Take 1 tablet by mouth once daily. oxybutynin ER (DITROPAN XL) 10 mg 24 hr tablet Take 2 tablets by mouth once daily. atenolol (TENORMIN) 25 mg tablet Take 1 tablet by mouth once daily. nitroglycerin sublingual (NITROQUICK) 0.4 mg SL tablet Dissolve 1 tablet under the tongue as needed. FOR CHEST PAIN. IF NO RELIEF CALL 911 triamcinolone acetonide (NASACORT AQ) 55 mcg nasal inhaler Use 2 Sprays in the nose once daily. CPAP CPAP mask and other supplies as needed. Mask per pt preference, tubing, filters, heated humidity, lifetime supplies. Dx: JL on CPAP. G47.33. Cholecalciferol, Vitamin D3, 2,000 unit cap Take 2 capsules by mouth once daily. ASPIRIN 81 MG TAB once daily FAMILY HISTORY Problem Relation Age of Onset Colon Cancer Mother other (INTESTINAL TUMOR) Mother UPPER INTESTINAL TUMOR Heart Father [place] Diabetes Father Stroke Father MULTIPLE STROKES Cancer Father skin Heart Brother ANGIOPLASTY Colon Cancer Brother Alzheimer's Disease Brother Aneurysm Brother Social History Tobacco Use Smoking status: Every Day Packs/day: 0.50 Years: 57.00 Pack years: 28.50 Types: Cigarettes Start date: 06/30/1966 Smokeless tobacco: Never Substance Use Topics Alcohol use: No Drug use: No BP 122/60 Pulse 80 Temp 36.6 C (97.8 F) (Tympanic) Resp 18 Wt 79.3 kg (174 lb 12.8 oz) SpO2 95% BMI 29.09 kg/m Review of Systems Constitutional: Negative for chills, fever and malaise/fatigue. HENT: Positive for ear pain. Negative for congestion, ear discharge, hearing loss, sinus pain, sorethroat and tinnitus. Eyes: Negative for blurred vision, pain, discharge and redness. Respiratory: Negative for cough, hemoptysis, sputum production, shortness of breath, wheezing and stridor. Cardiovascular: Negative for chest pain. Gastrointestinal: Negative for abdominal pain, diarrhea, nausea and vomiting. Musculoskeletal: Negative for myalgias. Skin: Negative for itching and rash. Neurological: Negative for dizziness and headaches. Objective Physical Exam Constitutional: General: She is not in acute distress. Appearance: She is not diaphoretic. HENT: Head: Normocephalic. Jaw: No trismus, tenderness, swelling or pain on movement. Ears: Comments: Lesion noted to highlighted area. Some crusting. Slight redness noted to highlighted area. No remote redness. No mastoid tenderness. Eyes: Conjunctiva/sclera: Conjunctivae normal. Pupils: Pupils are equal, round, and reactive to light. Cardiovascular: Rate and Rhythm: Normal rate and regular rhythm. Heart sounds: Normal heart sounds. Pulmonary: Effort: Pulmonary effort is normal. No tachypnea, accessory muscle usage or respiratory distress. Breath sounds: Normal breath sounds. No stridor. No wheezing, rhonchi or rales. Abdominal: Palpations: Abdomen is soft. Musculoskeletal: Cervical back: Normal range of motion and neck supple. No rigidity or tenderness. Lymphadenopathy: Cervical: No cervical adenopathy. Skin: General: Skin is warm and dry. Neurological: Mental Status: She is alert and oriented to person, place, and time. ASSESSMENT/PLAN: 1. Cellulitis of left ear - ICD9: 380.10, ICD10: H60.12 Diagnosed with superficial cellulitis of left ear. No evidence of perichondritis. Treat with topical antibiotic cream. Follow-up with PCP 2 to 3 days reevaluation. Red flags prompt reevaluation discussed. Patient was educated on supportive therapies. Patient was instructed to immediately proceed to emergency room for any new, worsening, or symptoms lasting longer than anticipated. The patient's clinical presentation is otherwise unremarkable at this time. Based on exam and clinical finding, thepatient is stable for discharge. Plan of care was discussed with patient. Patient verbalizes underst anding and agrees to plan of care. This note was generated using Sar[employer] software. It may contain errors in wording, punctuation, or spelling. Oswaldo Woods APRN.CHELA documented in this encounterGeorgetown Behavioral Hospital04-10-2023 Miscellaneous Notes* Telephone Encounter - Hyacinth Elizabeth Jaramillo Pss - 01/05/2023 3:07 PM EDT Pharmacy verified in [facility] Patient has been identified by name and date of : Yes Patient aware RX will be sent to pharmacy. No need to notify patient. Spouse phones for refill(s): Requested Prescriptions Pending Prescriptions Disp Refills atorvastatin (LIPITOR) 80 mg tablet 90 tablet 1 Sig: Take 1 tablet by mouth daily at bedtime. Date of last office visit : 09/05/2022 Date of next office visit : Visit date not found Last 2 Encounter Wt Readings: Date: Wt: 09/05/2022 75.8 kg (167 lb) 06/26/2022 75.7 kg (166 lb 12.8 oz) Please advise. Hyacinth Jaramillo Pss documented in this encounterGeorgetown Behavioral Hospital03-06-2023 Miscellaneous Notes* Telephone Encounter - Bo Borden Ma - 12/01/2022 2:23 PM EST JENAE: 09/05/2022 Last refill: 09/06/2022 QTY: 90 Refills: 2 * Telephone Encounter - Katherin Kendall Pss - 12/01/2022 10:46 AM EST Patient has been identified by name and date of : Yes Requested Prescriptions Pending Prescriptions Disp Refills gabapentin (NEURONTIN) 300 mg capsule 90 capsule 2 Sig: Take 1 capsule by mouth three times daily for 90 days. RX INSTRUCTIONS: Patient aware RX will be sent to pharmacy. No need to notify patient. Katherin Kendall Pss documented in this encounterGeorgetown Behavioral Hospital01-06-2023 Miscellaneous Notes* Telephone Encounter - Malu Mora RN - 10/03/2022 4:40 PM EST Pts called and is notified of providers message. He voices understanding. Malu Mora RN * Telephone Encounter - Vivian Samuels LPN - 09/30/2022 4:04 PM EST Patient has been identified by name and date of : Yes Patient phones for refill(s): Requested Prescriptions Pending Prescriptions Disp Refills PARoxetine (PAXIL) 10 mg tablet 90 tablet 1 Sig: Take 1 tablet by mouth once daily. Date of last office visit in primary care: 09/05/2022 3 month follow-up: 12/15/2022 Last 2 Encounter Wt Readings: Date: Wt: 09/05/2022 75.8 kg (167 lb) 06/26/2022 75.7 kg (166 lb 12.8 oz) Previous labs/tests for medication: Not applicable Please advise. Thank you. Vivian Samuels LPN * Telephone Encounter - Megan [facility] - 09/30/2022 2:32 PM EST Patient has been identified by name and date of : Yes Requested Prescriptions Pending Prescriptions Disp Refills PARoxetine (PAXIL) 10 mg tablet 90 tablet 1 Sig: Take 1 tablet by mouth once daily. RX INSTRUCTIONS: Patient aware RX will be sent to pharmacy. No need to notify patient. [facility] [place] documented in this encounterGe[facility]12-12-2022 Miscellaneous Notes* Telephone Encounter - Bo Borden Ma - 09/08/2022 3:44 PM EST Faxed to [facility] as requested. Bo Borden Ma * Telephone Encounter - Hyacinth Jaramillo Pss - 09/08/2022 12:14 PM EST Gomez is calling on behalf of Kami. They are requesting a new walker that is taller than her current one. He spoke to [facility] and they said to request a front wheeled walker. Please send script to the [email or web address] in [place]. documented in this encounterGeorgetown Behavioral Hospital12-12-2022 Miscellaneous Notes* Telephone Encounter - Yolie Johnson RN - 09/08/2022 9:47 AM EST Patient's calls and notified that capsules were changed to 300 mg and that patient is to take 1 capsule three times a day. voiced understanding. Yolie Johnson RN * Telephone Encounter - Giuliana Walters LPN - 09/08/2022 9:33 AM EST Left a message for pt to call the office and ask to speak to a nurse. Giuliana Walters LPN * Telephone Encounter - Matheus Fajardo MD - 09/06/2022 11:39 AM EST Patient's request for medication is as follows Requested Prescriptions Signed Prescriptions Disp Refills gabapentin (NEURONTIN) 300 mg capsule 90 capsule 2 Sig: Take 1 capsule by mouth three times daily for 90 days. Authorizing Provider: MATHEUS FAJARDO Please inform the patient. Capsule changed from 100 mg to 300 mg so 1 capsule TID. Matheus Fajardo MD * Telephone Encounter - Eliz Santos - 09/06/2022 11:24 AM EST Patient has been identified by name and date of : Yes Last office visit in this department: 06/02/2006 RX INSTRUCTIONS: Patient aware RX will be sent to pharmacy. No need to notify patient. Patient phones requesting refills as follows: Requested Prescriptions Pending Prescriptions Disp Refills gabapentin (NEURONTIN) 100 mg capsule 270 capsule 2 Sig: Take 3 capsules by mouth three times daily for 90 days. Please review and advise. Eliz Santos documented in this encounterGeorgetown [facility]12-09-2022 Instructions* Patient Instructions* Matheus Fajardo MD - 09/05/2022 4:12 PM EST I am referring you to Dr. 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 Fasting blood work in 3 months. Diabetic eye exam is due. documented in this encounterGeorgetown [facility] Hospital12-09-2022 History of Present illness Narrative* Matheus Fajardo MD - 09/05/2022 3:53 PM EST This note was created using Lucky Pai. Subjective Mattie Herron is a 82 year old female. Her cervical adenopathy resolved and no longer noticeable. We reviewed her thyroid US with no findings of concern. Her neuropathic left leg pains were controlled on gabapentin. We clarified that gabapentin is not expected to worsen incontinence. She was concerned about worsening mixed incontinence. She was no longer limited to urge incontinence. This was impacting on her QOL as she still enjoyed traveling to visit family. She was taking oxybutynin and using more absorbent wear. Review of Systems Constitutional: Negative. HENT: Negative. Respiratory: Negative. Genitourinary: Negative for difficulty urinating and dysuria. ACTIVE PROBLEM LIST Coronary Atherosclerosis Mixed Hyperlipidemia Esophageal Reflux Anxiety State Chronic Rhinitis Benign Neoplasm of Colon Tobacco Use Disorder Aortic Valve Sclerosis Bilateral Carotid Artery Stenosis Osteoporosis, Post-Menopausal Ddd (Degenerative Disc Disease), Lumbar Vitamin D Deficiency Jl On Cpap Venous Insufficiency of Both Lower Extremities Essential Hypertension Diabetic Peripheral Neuropathy Associated With Type 2 Diabetes Mellitus (Hcc) Polycythemia Urgency Incontinence Excessive Sweating, Local Nocturnal Leg Cramps Tremor, Essential Gait Abnormality Current Outpatient Medications Medication Sig atorvastatin (LIPITOR) 80 mg tablet Take 1 tablet by mouth daily at bedtime. gabapentin (NEURONTIN) 100 mg capsule Take 3 capsules by mouth three times daily for 90 days. PARoxetine (PAXIL) 10 mg tablet Take 1 tablet by mouth once daily. atenolol (TENORMIN) 25 mg tablet Take 1 tablet by mouth once daily. oxybutynin ER (DITROPAN XL) 10 mg 24 hr tablet Take 1 tablet by mouth once daily. nitroglycerin sublingual (NITROQUICK) 0.4 mg SL tablet Dissolve 1 tablet under the tongue as needed. FOR CHEST PAIN. IF NO RELIEF CALL 911 triamcinolone acetonide (NASACORT AQ) 55 mcg nasal inhaler Use 2 Sprays in the nose once daily. CPAP CPAP mask and other supplies as needed. Mask per pt preference, tubing, filters, heated humidity, lifetime supplies. Dx: JL on CPAP. G47.33. Cholecalciferol, Vitamin D3, 2,000 unit cap Take 2 capsules by mouth once daily. ASPIRIN 81 MG TAB once daily No current facility-administered medications for this visit. Objective BP 116/56 (BP Site: Left Arm, BP Position: Sitting, BP Cuff Size: Large Adult) Pulse 75 Temp 36.1 C (96.9 F) Resp 14 Ht 165.1 cm (5' 5) Wt 75.8 kg (167 lb) SpO2 93% BMI 27.79 kg/m Physical Exam Constitutional: General: She is not in acute distress. Musculoskeletal: Cervical back: No tenderness. Lymphadenopathy: Cervical: No cervical adenopathy. Neurological: General: No focal deficit present. Mental Status: She is alert. Gait: Gait abnormal. Assessment and Plan 1. Urgency incontinence - ICD9: 788.31, ICD10: N39.41 (primary diagnosis) - OXYBUTYNIN CHLORIDE ER 10 MG TABLET,EXTENDED RELEASE 24 HR. Increase to two tablets daily. Discussed medication dosage, usage, goals of therapy, and side effects. - CONSULT TO UROLOGY. Refer locally to Dr. Aide Funez. 2. Anterior cervical lymphadenopathy - ICD9: 785.6, ICD10: R59.0 Resolved. 3. Mixed incontinence - ICD9: 788.33, ICD10: N39.46 See above. - OXYBUTYNIN CHLORIDE ER 10 MG TABLET,EXTENDED RELEASE 24 HR - CONSULT TO UROLOGY 4. Polycythemia - ICD9: 238.4, ICD10: D75.1 Monitor. - CBC 5. 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) - ICD9: 250.60, 357.2, ICD10: E11.42 Diet controlled. - BASIC METABOLIC PNL - HGB A1C Matheus Fajardo MD documented in this encounterGe[facility]11-28-2022 Miscellaneous Notes* Telephone Encounter - Bo Borden Ma - 08/25/2022 4:25 PM EST Mychart sent as requested. * Telephone Encounter - Cookie Dumas APRN.CNP - 08/25/2022 3:45 PM EST Sometimes worsening urinary issues can indicate infection. Recommend evaluation in urgent care where they are at first Cookie Dumas APRN.CNP * Telephone Encounter - Malu Mora RN - 08/25/2022 9:56 AM EST Pt called in and reports Pt is having issues with not being able to hold her urine. He states over the past 2 weeks she has had about 6 episodes. He states she will be getting out of bed and the urine will come right out, or walking to the car, or standing up from a chair. He states sometimes she just can't get to the bathroom in time, and other times she doesn't even know it's coming. Hestates she has an appointment with provider on 09/05/22. He is asking if Pt would be able to double her Oxybutynin dose until they come see him. He reports they are in [place] right now. Pleasesend message through [employer] per husbands request. documented in this encounterGeorgetown [facility]al Hospital09-29-2022 History of Present illness Narrative* Matheus Fajardo MD - 06/26/2022 4:21 PM EDT This note was created using Start[employer]. Subjective Mattie Herron is a 82 year old female. Left leg sharp pain was better, but left leg ache remained. Gabapentin was effective with no side effects noted. Stopping her statin did not impact on the left leg pain. Diabetes was controlled. She noted increased allergy symptoms recently and noted a tender lump of the right anterior neck. Review of Systems Constitutional: Negative for chills and fever. HENT: Positive for congestion and postnasal drip. Negative for sore throat. Respiratory: Negative for cough, shortness of breath and wheezing. Cardiovascular: Positive for leg swelling. Negative for chest pain and palpitations. Gastrointestinal: Negative. Musculoskeletal: Positive for gait problem. ACTIVE PROBLEM LIST Coronary Atherosclerosis Mixed Hyperlipidemia Esophageal Reflux Anxiety State Chronic Rhinitis Benign Neoplasm of Colon Tobacco Use Disorder Aortic Valve Sclerosis Bilateral Carotid Artery Stenosis Osteoporosis, Post-Menopausal Ddd (Degenerative Disc Disease), Lumbar Vitamin D Deficiency Jl On Cpap Venous Insufficiency of Both Lower Extremities Essential Hypertension Diabetic Peripheral Neuropathy Associated With Type 2 Diabetes Mellitus (Hcc) Polycythemia Urgency Incontinence Excessive Sweating, Local Nocturnal Leg Cramps Tremor, Essential Gait Abnormality Current Outpatient Medications Medication Sig PARoxetine (PAXIL) 10 mg tablet Take 1 tablet by mouth once daily. atenolol (TENORMIN) 25 mg tablet Take 1 tablet by mouth once daily. oxybutynin ER (DITROPAN XL) 10 mg 24 hr tablet Take 1 tablet by mouth once daily. nitroglycerin sublingual (NITROQUICK) 0.4 mg SL tablet Dissolve 1 tablet under the tongue as needed. FOR CHEST PAIN. IF NO RELIEF CALL 911 triamcinolone acetonide (NASACORT AQ) 55 mcg nasal inhaler Use 2 Sprays in the nose once daily. CPAP CPAP mask and other supplies as needed. Mask per pt preference, tubing, filters, heated humidity, lifetime supplies. Dx: JL on CPAP. G47.33. Cholecalciferol, Vitamin D3, 2,000 unit cap Take 2 capsules by mouth once daily. ASPIRIN 81 MG TAB once daily atorvastatin (LIPITOR) 80 mg tablet Take 1 tablet by mouth daily at bedtime. gabapentin (NEURONTIN) 100 mg capsule Take 3 capsules by mouth three times daily for 90 days. No current facility-administered medications for this visit. Objective BP 112/66 (BP Site: Left Arm, BP Position: Sitting, BP Cuff Size: Large Adult) Pulse 60 Temp 36.5 C (97.7 F) (Temporal) Resp 16 Wt 75.7 kg (166 lb 12.8 oz) BMI 27.76 kg/m Physical Exam Constitutional: General: She is not in acute distress. HENT: Nose: Congestion present. No nasal tenderness. Mouth/Throat: Pharynx: Oropharynx is clear. Neck: Thyroid: Thyroid mass present. Trachea: Trachea normal. Comments: Grape shaped/sized mildly tender right paratracheal mass, mobile, smooth. Cardiovascular: Rate and Rhythm: Normal rate and regular rhythm. Heart sounds: S1 normal and S2 normal. Murmur heard. Systolic murmur is present with a grade of 1/6. Pulmonary: Breath sounds: Normal breath sounds. No wheezing or rales. Musculoskeletal: Comments: Trace edema. Neurological: General: No focal deficit present. Mental Status: She is alert. Gait: Gait abnormal. Comments: Walker. Feet:Shoes and socks removed, No ulcers, calluses, abnormal pulses Decreased bilaterally, sensitiveto 10 gm monofilament, and hammertoes. Component Latest Ref Rng & Units 06/23/2022 Protein, Total 6.3 - 8.0 g/dL 6.7 Albumin 3.9 - 4.9 g/dL 4.0 Calcium 8.5 - 10.2 mg/dL 9.5 Bilirubin, Total 0.2 - 1.3 mg/dL 0.3 Alkaline Phosphatase 34 - 123 U/L 73 AST 13 - 35 U/L 17 ALT 7 - 38 U/L 15 Glucose 74 - 99 mg/dL 121 (H) BUN 7 - 21 mg/dL 20 Creatinine 0.58 - 0.96 mg/dL 1.12 (H) Sodium 136 - 144 mmol/L 143 Potassium 3.7 - 5.1 mmol/L 4.5 Chloride 97 - 105 mmol/L 107 (H) CO2 22 - 30 mmol/L 23 Anion Gap 9 - 18 mmol/L 13 eGFR >=60 mL/min/1.73m 49 (L) WBC 3.70 - 11.00 k/uL 7.96 RBC 3.90 - 5.20 m/uL 5.49 (H) Hemoglobin 11.5 - 15.5 g/dL 16.0 (H) Hematocrit 36.0 - 46.0 % 49.8 (H) MCV 80.0 - 100.0 fL 90.7 MCH 26.0 - 34.0 pg 29.1 MCHC 30.5 - 36.0 g/dL 32.1 RDW-CV 11.5 - 15.0 % 14.0 Platelet Count 150 - 400 k/uL 174 MPV 9.0 - 12.7 fL 11.9 Absolute nRBC <0.01 k/uL <0.01 Cholesterol, Total <200 mg/dL 168 Triglyceride <150 mg/dL 149 HDL Cholesterol >39 mg/dL 48 Non HDL Cholesterol <130 mg/dL 120 Fasting Time hrs 12 VLDL Cholesterol <30 mg/dL 30 (H) TC:HDL Ratio <5.10 3.50 LDL Cholesterol <100 mg/dL 90 LDL:HDL Ratio <2.54 1.88 Hemoglobin A1C 4.3 - 5.6 % 6.1 (H) Estimated Average Glucose mg/dL 128 Assessment and Plan 1. Anterior cervical lymphadenopathy - ICD9: 785.6, ICD10: R59.0 (primary diagnosis) Right paratracheal mass. Observe. Recheck in 6 weeks. - US THYROID/PARATHYROID 2. Mixed hyperlipidemia - ICD9: 272.2, ICD10: E78.2 - good control - Continue current medication. - ATORVASTATIN 80 MG TABLET 3. Need for influenza vaccination - ICD9: V04.81, ICD10: Z23 - INFLUENZA SEASONAL QUADRIVALENT HIGH DOSE AGE 65+ 4. Gait abnormality - ICD9: 781.2, ICD10: R26.9 Fall precautions. 5. 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) - ICD9: 250.60, 357.2, ICD10: E11.42 improved control, left leg pain. - GABAPENTIN 100 MG CAPSULE. Increase to 300 mg TID. If effective/tolerated message in 2-3 weeks for change to 300 MG CAPSULE. - ALBUMIN/CREAT RATIO RND UR 6. Need for COVID-19 vaccine - ICD9: V04.89, ICD10: Z23 - PFIZER-BIONTECH COVID-19 BIVALENT BOOSTER VACCINE, AGE 12+ YR Matheus Fajardo MD documented in this encounterGeorgetown [facility] Hospital08-29-2022 Miscellaneous Notes* Telephone Encounter - Bo Borden Ma - 05/26/2022 12:51 PM EDT JENAE: 03/24/2022 Last refill: 02/10/2022 QTY: 180 Refills: 2 * Telephone Encounter - Hyacinth Montemayor - 05/26/2022 9:18 AM EDT Pharmacy verified in [employer] Patient has been identified by name and date of : Yes Patient aware RX will be sent to pharmacy. No need to notify patient. Spouse phones for refill(s): Requested Prescriptions Pending Prescriptions Disp Refills gabapentin (NEURONTIN) 100 mg capsule 180 capsule 2 Sig: Take 2 capsules by mouth three times daily for 90 days. Date of last office visit : 03/24/2022 Date of next office visit : 06/26/2022 Last 2 Encounter Wt Readings: Date: Wt: 03/24/2022 71.7 kg (158 lb) 12/13/2021 66.2 kg (146 lb) Not applicable Please advise. Hyacinth Jaramillo Pss documented in this encounterGeorgetown Behavioral Hospital06-27-2022 Instructions* Patient Instructions* Matheus Fajardo MD - 03/24/2022 2:17 PM EDT STOP ATORVASTATIN (LIPITOR) FOR 7 DAYS AND SEE IF PAIN AND WEAKNESS IMPROVES. AFTER 7 DAYS, RESUME ATORVASTATIN AND OBSERVE SYMPTOMS documented in this encounterGeorgetown Behavioral Hospital06-27-2022 History of Present illness Narrative* Matheus Fajardo MD - 03/24/2022 1:57 PM EDT This note was created using Lucky Pai. Subjective Mattie Herron was here with Anand for follow up. She started having intermittent left anterior thigh pain last March. Then in April she developed progressively severe low back pain interfering with ambulation and sitting down, and requested referral to Dr. Sanchez for pain management. She had back injections which helped. However, she noted her left leg giving out and increasingly the need for a walker for stability. [facility] and was evaluated by Dr. Claire with an MRI of the LS spine showing non specific degenerative disc disease and degenerative joint disease. EMG showed peroneal and tibial neuropathy, with no finding of lumbar radiculopathy. Neurology evaluation was done, and she was diagnosed with diabetic neuropathy of the left leg. Gabapentin has been prescribed, which helped with paroxysmal stabbing pains, but the constant dull ache of the left thigh was not much better. PT was done. She also gave a history of falling on concrete steps 09/18/21 and this was more the more recenty recalled as the inciting event of her left thigh pain. Review of Systems Constitutional: Negative for appetite change and unexpected weight change. Respiratory: Negative. Cardiovascular: Negative for chest pain, palpitations and leg swelling. Musculoskeletal: Positive for gait problem and myalgias. Psychiatric/Behavioral: Positive for dysphoric mood. ACTIVE PROBLEM LIST Coronary Atherosclerosis Mixed Hyperlipidemia Esophageal Reflux Anxiety State Chronic Rhinitis Benign Neoplasm of Colon Tobacco Use Disorder Aortic Valve Sclerosis Carotid Artery Disease Without Cerebral Infarction (Hcc) Osteoporosis, Post-Menopausal Ddd (Degenerative Disc Disease), Lumbar Vitamin D Deficiency Jl On Cpap Venous Insufficiency of Both Lower Extremities Essential Hypertension Diabetic Peripheral Neuropathy Associated With Type 2 Diabetes Mellitus (Hcc) Polycythemia Urgency Incontinence Excessive Sweating, Local Nocturnal Leg Cramps Tremor, Essential Gait Abnormality Current Outpatient Medications Medication Sig atenolol (TENORMIN) 25 mg tablet Take 1 tablet by mouth once daily. oxybutynin ER (DITROPAN XL) 10 mg 24 hr tablet Take 1 tablet by mouth once daily. gabapentin (NEURONTIN) 100 mg capsule Take 2 capsules by mouth three times daily for 90 days. PARoxetine (PAXIL) 10 mg tablet Take 1 tablet by mouth once daily. atorvastatin (LIPITOR) 80 mg tablet Take 1 tablet by mouth daily at bedtime. nitroglycerin sublingual (NITROQUICK) 0.4 mg SL tablet Dissolve 1 tablet under the tongue as needed. FOR CHEST PAIN. IF NO RELIEF CALL 911 triamcinolone acetonide (NASACORT AQ) 55 mcg nasal inhaler Use 2 Sprays in the nose once daily. CPAP CPAP mask and other supplies as needed. Mask per pt preference, tubing, filters, heated humidity, lifetime supplies. Dx: JL on CPAP. G47.33. Cholecalciferol, Vitamin D3, 2,000 unit cap Take 2 capsules by mouth once daily. ASPIRIN 81 MG TAB once daily estradiol (ESTRACE) 0.01 % (0.1 mg/gram) vaginal cream Use 1 Applicator vaginally 3 times a WEEK. Per Dr. Waters Lancmelissa (FREESTYLE LANCETS) lancets check blood sugars daily. DX:250.00 (Patient not taking: Reported on 12/13/2021 ) blood sugar diagnostic(FREESTYLE TEST STRIPS) Test daily as directed 250.00, (Patient not taking: Reported on 12/13/2021) No current facility-administered medications for this visit. Objective BP 110/62 (BP Site: Left Arm, BP Position: Sitting, BP Cuff Size: Large Adult) Pulse (!) 56 Temp 36.4 C (97.5 F) (Temporal Artery) Resp 16 Wt 71.7 kg (158 lb) BMI 26.29 kg/m Physical Exam Constitutional: General: She is not in acute distress. Cardiovascular: Pulses: Decreased pulses. Femoral pulses are 1+ on the right side and 1+ on the left side with bruit. Dorsalis pedis pulses are 1+ on the right side and 1+ on the left side. Posterior tibial pulses are 0 on the right side and 0 on the left side. Pulmonary: Effort: Pulmonary effort is normal. Musculoskeletal: Left hip: No tenderness. Normal range of motion. Decreased strength. Left upper leg: No deformity or tenderness. Left knee: No swelling or deformity. Normal range of motion. No tenderness. Right lower leg: No edema. Left lower leg: No swelling. No edema. Neurological: Mental Status: She is alert. Motor: Weakness present. No atrophy or abnormal muscle tone. Gait: Gait abnormal. Deep Tendon Reflexes: Reflexes normal. Comments: Weakness of left hip and knee 4/5. Ambulatory with walker. Unsteady gait. MRI of LS spine, and MRI of left knee in scanned files. Assessment and Plan ASSESSMENT/PLAN: 1. Left leg pain - ICD9: 729.5, ICD10: M79.605 (primary diagnosis) - PVR LEG [facility] 2. Left leg weakness - ICD9: 729.89, ICD10: R29.898 - [facility] 3. Gait abnormality - ICD9: 781.2, ICD10: R26.9 - [facility] Considerations are statin myopathy versus PAD. Plan is vascular work up. Meanwhile, hold statin for7 days and monitor symptoms. See printed instructions. Matheus Fajardo MD documented in this encounterGeorgetown Behavioral Hospital05-16-2022 Miscellaneous Notes* Telephone Encounter - Vivian Samuels LPN - 02/10/2022 3:26 PM EDT Patient has been identified by name and date of : Yes Patient phones for refill(s): Pending Prescriptions Disp Refills OXYBUTYNIN CHLORIDE ER 10 MG TABLET,EXTENDED RELEASE 24 HR 90 tablet 3 Sig: Take 1 tablet by mouth once daily. ALICIA: No Date of last office visit in primary care: 10/05/2021 No future appt scheduled. Last 2 Encounter Wt Readings: Date: Wt: 12/13/2021 66.2 kg (146 lb) 10/05/2021 65.8 kg (145 lb) Previous labs/tests for medication: Not applicable Please advise. Thank you. Vivian Samuels LPN * Telephone Encounter - Hyacinth Jaramillo Pss - 02/10/2022 12:17 PM EDT Pharmacy verified in [facility] Patient has been identified by name and date of : Yes Patient aware RX will be sent to pharmacy. No need to notify patient. Spouse phones for refill(s): Pending Prescriptions Disp Refills OXYBUTYNIN CHLORIDE ER 10 MG TABLET,EXTENDED RELEASE 24 HR 90 tablet 3 Sig: Take 1 tablet by mouth once daily. ALICIA: No Date of last office visit : 10/05/2021 Date of next office visit : Visit date not found Last 2 Encounter Wt Readings: Date: Wt: 12/13/2021 66.2 kg (146 lb) 10/05/2021 65.8 kg (145 lb) Not applicable Please advise. Hyacinth Jaramillo Pss documented in this encounterGeorgetown Behavioral Hospital04-14-2022 Miscellaneous Notes* Telephone Encounter - Slime Peterson LPN - 01/09/2022 4:16 PM EDT Called pt and pharmacy verified. * Telephone Encounter - Slime Peterson LPN - 01/09/2022 3:35 PM EDT there are multiple [facility] in [facility]. Need address or phone number. * Telephone Encounter - Jenna Ewing Pss - 01/09/2022 1:29 PM EDT Patient's called back and said [facility] in [place] told him they can't fill this script becauseit is not due for a refill yet. In addition to that, they have decided not to wait [place] for the [place] to be [place]. Wants to know if the 8 day supply can now be sent to [facility] in [place], [place] instead. That is their vacation destination and will be arriving there in about 4 hours. Please advise at [phone] * Telephone Encounter - Matheus Fajardo MD - 01/09/2022 12:03 PM EDT Patient's request for medication is as follows Signed Prescriptions Disp Refills PARoxetine (PAXIL) 10 mg tablet 8 tablet 0 Sig: Take 1 tablet by mouth once daily. ALICIA: No Authorizing Provider: MATHEUS FAJARDO Order entered - please phone pharmacy and notify patient. Matheus Fajardo MD * Telephone Encounter - Beatrice Rm LPN - 01/09/2022 9:17 AM EDT Pt is on vacation in [place] & forgot medication at home, asking for a refill for 8 days to [facility] in [place]. JENAE: 02/27/21 NOV: None scheduled Last Refill: 12/16/21 #90 0 refills Beatrice Rm LPN documented in this encounterGeorgetown Behavioral Hospital04-12-2022 History of Present illness Narrative* Kimberly Rothman APRN.OUTSIDE SALES ACCOUNT REPRESENTATIVE - 01/07/2022 5:15 PM EDT Images from the original note were not included. [facility] Follow-up Virtual Visit Follow-up note This visit was conducted via [employer] with patient permission as patient is unable to log into [employer] platform. January 07, 2022 HPI: Ms. Herron presents today for a follow-up visit. Per her previous visit with Dr. Millard on 12/13/21: ASSESSMENT/PLAN: 1. Left leg pain - ICD9: 729.5, ICD10: M79.605 (primary diagnosis) 2. Recurrent falls - ICD9: V15.88, ICD10: R29.6 3. Left leg weakness - ICD9: 729.89, ICD10: R29.898 Patient with LLE pain and weakness as above. of uncertain etiology. MRI L spine per reports showingL4/L5 and L5/S1 disease that does not correlate with the areas of weakness and pain endorsed by pain during history or demonstrated on exam. EMG/NCV reportedly showed possible Tib and Peroneal N neuropathy, but as with MRI findings, there is no weakness or sensory disturbances by history or exam that would correlate with these nerves. Possible that pain now perceived is due to new injury during fall on 09/25/21. To further evaluate for spine or peripheral n etiology, would like patient to have repeat EMG/NCV - approximately 3 months since fall. Pt and her agree. Encouraged continued PT. For discomfort will place on trial of gabapentin 100mg TID (SE and ADRs d/w pt). Pt will follow up after EMG/NCV complete. Since her previous appointment she feels like the weakness and pain in her left leg had remained the same and without improvement. She does report decrease in sharp pains to her leg with use of gabapentin 100mg TID. Denies SE with medication. States she will still have some pains or bad aches when trying to walk. Will also note some aching when resting. A1C ordered in September but not yet completed. Had gone to [facility] in the past and has been occasionally doing stretches and exercises at home. Denies recent falls. Reviewed EMG results with pt and her . PAST MEDICAL HISTORY Diagnosis Date Abnormal mammogram, unspecified RIGHT ABSCESS VULVA 08/12/2006 Acute gastritis without mention of hemorrhage Allergic rhinitis due to other allergen Anxiety state, unspecified Aortic valve sclerosis 04/02/2012 B-COMPLEX DEFIC NEC 03/29/2008 Benign neoplasm of colon Carotid artery disease without cerebral infarction (HCC) 04/02/2012 Chronic rhinitis 07/07/2005 Congenital atresia and stenosis of aorta 07/07/2005 Infrarenal stent 2003 Coronary atherosclerosis 07/07/2005 [place], PTCA 1988. [place], RCA stent November 2003. Coronary atherosclerosis of unspecified type of vessel, [place] or graft 07/07/2005 [place], PTCA 1988. [place], RCA stent November 2003. DDD (degenerative disc disease), lumbar 04/19/2014 Dr. Galen Sanchez, pain management Diaphragmatic hernia without mention of obstruction or gangrene Diverticulosis of colon (without mention of hemorrhage) Esophageal reflux Esophagitis, unspecified Essential hypertension 06/10/2016 Hemangioma of liver 03/12/2007 Mixed hyperlipidemia 07/07/2005 JL (obstructive sleep apnea) 10/16/2011 DME [facility] for CPAP Osteoporosis, post-menopausal 09/14/2012 Other microscopic hematuria 11/04/2017 Dr. Galen Waters. Polycythemia 10/30/2017 Postmenopausal atrophic vaginitis Type II or unspecified type diabetes mellitus without mention of complication, not stated as uncontrolled 10/01/2006 Ureterolithiasis 11/12/2010 Venous insufficiency of both lower extremities 11/03/2015 PAST SURGICAL HISTORY Procedure Laterality Date BX BREAST PERC VACUUM/ROTN 09/05/08 RIGHT BREAST COLONOSCOPY FLX DX W/COLLJ SPEC WHEN PFRMD 08/05/05 Colonoscopy COLONOSCOPY FLX DX W/COLLJ SPEC WHEN PFRMD 10/06/2006 Colonoscopy COLONOSCOPY FLX DX W/COLLJ SPEC WHEN PFRMD 06/07/2012 Colonoscopy COLONOSCOPY FLX DX W/COLLJ SPEC WHEN PFRMD 06/30/2013 Colonoscopy COLSC FLX W/RMVL OF TUMOR POLYP LESION SNARE TQ 05/22/2017 multiple [id number] follow-up CORONARY ENDARTERCOMY OPEN ANY METHOD 1988 Angioplasty CORRECT BUNION,SIMPLE 09/08/2008 hammertoe CYSTOSCOPY 10/26/2017 EGD TRANSORAL BIOPSY SINGLE/MULTIPLE 09/30/07 EXC BREAST LES PREOP PLMT RAD MARKER OPEN 1 LES 09/05/08 INSERT INTRACORONARY STENT 11/2003 RIGHT CORONARY STENT INSERT INTRACORONARY STENT 02/2004 STENT INFRARENAL ABDOMINAL AORTA PAST SURGICAL HISTORY OF 08/30/2012 Right thumb, wrist surgery PAST SURGICAL HISTORY OF Left 02/15/2018 Left cataract removed STEREOTACTIC CORE BIOPSY 09/05/08 Current Outpatient Medications on File Prior to Visit Medication Sig PARoxetine (PAXIL) 10 mg tablet Take 1 tablet by mouth once daily. atenolol (TENORMIN) 25 mg tablet Take 1 tablet by mouth once daily. gabapentin (NEURONTIN) 100 mg capsule Take 1 capsule by mouth three times daily for 90 days. atorvastatin (LIPITOR) 80 mg tablet Take 1 tablet by mouth daily at bedtime. oxybutynin ER (DITROPAN XL) 10 mg 24 hr tablet Take 1 tablet by mouth once daily. nitroglycerin sublingual (NITROQUICK) 0.4 mg SL tablet Dissolve 1 tablet under the tongue as needed. FOR CHEST PAIN. IF NO RELIEF CALL 911 triamcinolone acetonide (NASACORT AQ) 55 mcg nasal inhaler Use 2 Sprays in the nose once daily. estradiol (ESTRACE) 0.01 % (0.1 mg/gram) vaginal cream Use 1 Applicator vaginally 3 times a WEEK. Per Dr. Waters CPAP CPAP mask and other supplies as needed. Mask per pt preference, tubing, filters, heated humidity, lifetime supplies. Dx: JL on CPAP. G47.33. Cholecalciferol, Vitamin D3, 2,000 unit cap Take 2 capsules by mouth once daily. Lancets (FREESTYLE LANCETS) lancets check blood sugars daily. DX:250.00 (Patient not taking: Reported on 12/13/2021 ) blood sugar diagnostic(FREESTYLE TEST STRIPS) Test daily as directed 250.00, (Patient not taking: Reported on 12/13/2021) ASPIRIN 81 MG TAB once daily No current facility-administered medications on file prior to visit. Social History Tobacco Use Smoking status: Current Every Day Smoker Packs/day: 0.50 Years: 57.00 Pack years: 28.50 Types: Cigarettes Start date: 06/30/1966 Smokeless tobacco: Never Used Substance Use Topics Alcohol use: No Drug use: No ALLERGIES Allergen Reactions Amoxicillin Mental Status Change Bee Sting Hives, Swelling, Shortness of Breath Percocet [Oxycodone* Other: See Comments Patient passed out Rosuvastatin Other: See Comments Leg cramps. Sulfa (Sulfonamide * Vicodin [Hydrocodon* Other: See Comments Patient passed out from medication Zocor [Simvastatin] Other: See Comments Review of Systems: Cardiopulmonary: denies chest pain, palpitations Respiratory: denies shortness of breath Musculoskeletal: denies + weakness Back/spine: denies + low back Neuro: denies tremors, loss of feeling, dizziness, seizure, blackout, paresthesia, facial paresthesia, facial weakness, difficulty in speech, slurring of words, dysarthria, dysphagia, memory loss, headache, vision changes, + loss of hearing Physical Exam: Patient is alert and in no distress. Dress is appropriate. Mood is appropriate Breathing appears regular and unstressed Neurologic examination: Limited exam due to virtual platform. Cognitively intact. No deficits. No formal MMSE performed. CN: extraocular movements intact with no nystagmus, face is symmetric with no facial droop, hearingintact bilaterally, shoulder shrug is symmetric. Motor exam shows 5/5 strength symmetric through the upper and lower extremities in all groups observed. DARLING sensory exam due to virtual platform. Coordination: No dysmetria on finger to nose. Tremor noted bilaterally with arms outstretched. No drift seen. Gait unstable; using cane. Labs/studies: EMG LE 12/27/21: 1. 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 Chronic motor axon loss changes in muscles within the bilateral L2-L5 myotomes consistent with with chronic radiculopathies affecting these levels, mild in degree at L2 and more moderate to severeat L3-L5. This is accompanied by findings of active axon loss at L5 bilaterally and L3/4 on the left. 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 EMG/NCV ordered to further evaluate for peripheral or spine etiology. Results concerning for diabetic amyotrophy. Reviewed results with the patient and her . Discussed importance of BG control. A1C ordered in September and not yet drawn. Encouraged patient to have blood work completed. For pain patient previously started on gabapentin 100mg TID. She does report improvement in sharp pains though still notes aching throughout LE and lumbar spine. Denies SE from medication. Discussed increasing gabapentin dose and will do so slowly to avoid SE. Will increase to 100mg in AM and afternoon and QHS. If no SE will continue to increase both AM and afternoon dose as well. For Olivia will have patient begin physical therapy. Encouraged continued exercise at home within [facility] on 01/07/22 CONSULT TO PHYSICAL THERAPY Kimberly Rothman APRN.CHELA I spent a total of 20 minutes on the date of the service which included preparing to see the patient, [id number] patient care, completing clinical documentation, obtaining and/or reviewing separately obtained history, performing a medically appropriate examination, counseling and educating the pat ient/family/caregiver and communicating results to the patient/family/caregiver. [facility] Miscellaneous Notes* Telephone Encounter - Ricardo Navarro - 01/03/2022 2:39 PM EDT This staff spoke to patient and delived dr. Millard's message. Pt is going to make a follow up appointment with Jessica Rothman * Telephone Encounter - Manohar Millard Jr., MD - 01/03/2022 2:20 PM EDT Discussed with those performing EMG/NCV and they feel based on exam and EMG/NCV findings, likely: diabetic amyotrophy. Treatment would be physical therapy, glucose control and medications for discomfort if necessary. Pt should be scheduled for follow up with Jessica Rothman CNP when [facility] in [facility] if needed. Manohar Millard MD * Telephone Encounter - Yaima Lopez LPN - 01/02/2022 11:38 AM EDT Patient's calling to inquire about EMG results and follow up instructions. Patient will be out of town 01/07/22 - 01/15/22 if needing OV scheduled. Yaima Lopez LPN documented in this [facility]Ge[facility]04-01-2022 Miscellaneous Notes* Telephone Encounter - Yaima Lopez LPN - 12/27/2021 4:28 PM EDT Patient had EMG completed today, needing to schedule follow up with Kevin CARRILLO CNP or CHRIS to review results. Yaima Lopez LPN documented in this [facility]Ge[facility]04-01-2022 History of Present illness Narrative* Ambrose Ruano MD - 12/27/2021 1:07 PM EDT UNIVERSAL PROTOCOL / SAFETY CHECKLIST Procedure to be Performed: EMG Sign In: A Moment of CARE was completed. Personnel directly involved with the procedure wore the appropriate PPE (Personal Protective Equipment). Patient/Surrogate Stated/Verified: PATIENT VERIFIED(optional for EMERGENT procedures): Patient name, Date of , Relevant allergies and The intended procedure Time Out Communication: Intended patient and procedure match the source documents. Correct side/site marked and visible. Sign Out: SIGN OUT (optional for EMERGENT procedures): Post-procedure follow-up management communicated and Plan of Care Visit completed when applicable. [place] EMG Ambrose Ruano MD documented in this encounterGe[facility]03-27-2022 Miscellaneous Notes* Telephone Encounter - Marisela Montemayor - 12/22/2021 3:11 PM EDT patient scheduled * Telephone Encounter - Yolie Enrique - 12/19/2021 2:46 PM EDT 1st attempt to schedule - LM. Yolie Enrique * Telephone Encounter - Yaima Lopez LPN - 12/18/2021 1:44 PM EDT Spoke to patient's and willing to have the EMG scheduled at [facility]. Will have PSS call patient's to assist in scheduling. Yaima Lopez LPN * Telephone Encounter - Yaima Lopez LPN - 12/18/2021 12:52 PM EDT FYI. Is a new EMG order needed for patient to be scheduled within the CC? Copy of EMG received from [facility], ready for Provider to review. Yaima Lopez LPN * Telephone Encounter - Azul Rooney RN - 12/18/2021 11:06 AM EDT returns call and reports that fall at home occurred on September 25, 2021. Azul Rooney RN * Telephone Encounter - Yaima Lopez LPN - 12/18/2021 10:40 AM EDT Message left for patients to call office. Needing to Clarify the date of patient's big fall at home. Needing the month and day. Dr Millard would like patient to be scheduled in [place] for the EMG, wanting to keep within the CC. Yaima Lopez LPN documented in this encounterGe[facility]02-07-[facility] History of Past illness Narrative* Problem Noted Date Resolved Date Other microscopic hematuria 11/04/201705/29 Overview: Dr. Galen Waters. Arteriosclerotic heart disease (ASHD) 06/10/2016 05/04/2017 Personal history of colonic polyps 06/07/2012 11/03/2016 JL (obstructive sleep apnea) 10/16/2011 Overview: acclimate 5 cm DME: [facility] Ureterolithiasis 11/12/2010 02/12/2011 Overview: Left Pain in joint, lower leg 05/28/2009 016 Other B-complex deficiencies 03/29/2008 Urethritis, unspecified 03/22/2008 02/13/20 11 Trigonitis 03/22/2008 05/09/2013 Hematuria 02/17/2008 02/12/2011 Esophagitis, unspecified 09/30/2007 016 Diaphragmatic hernia without mention of obstruction or gangrene 09/30/2007 01/29/2009 Acute gastritis without mention of hemorrhage 01/29/2009 Sebaceous cyst 01/18/2007 01/29/2009 Postmenopausal atrophic vaginitis 04/20/2006 11/03/2015 AORTIC ATRESIA/STENOSIS 07/07/2005 11/03/19 16 Overview: Infrarenal stent 2004 documented as of this encounter (statuses as of 12/27/2021) [facility] History of Past illness Narrative* Problem Noted Date Resolved Date Other microscopic hematuria 11/04/201705/29 Overview: Dr. Galen Waters. Arteriosclerotic heart disease (ASHD) 06/10/2016 05/04/2017 Personal history of colonic polyps 06/07/2012 11/03/2016 JL (obstructive sleep apnea) 10/16/2011 Overview: acclimate 5 cm DME: [facility] Ureterolithiasis 11/12/2010 02/12/2011 Overview: Left Pain in joint, lower leg 05/28/2009 016 Other B-complex deficiencies 03/29/2008 Urethritis, unspecified 03/22/2008 02/13/20 11 Trigonitis 03/22/2008 05/09/2013 Hematuria 02/17/2008 02/12/2011 Esophagitis, unspecified 09/30/2007 016 Diaphragmatic hernia without mention of obstruction or gangrene 09/30/2007 01/29/2009 Acute gastritis without mention of hemorrhage 01/29/2009 Sebaceous cyst 01/18/2007 01/29/2009 Postmenopausal atrophic vaginitis 04/20/2006 11/03/2015 AORTIC ATRESIA/STENOSIS 07/07/2005 11/03/19 16 Overview: Infrarenal stent 2004 documented as of this encounter (statuses as of 12/27/2021) [facility] of Past illness Narrative* Problem Noted Date Resolved Date Other microscopic hematuria 11/04/201705/29 Overview: Dr. Galen Waters. Arteriosclerotic heart disease (ASHD) 06/10/2016 05/04/2017 Personal history of colonic polyps 06/07/2012 11/03/2016 JL (obstructive sleep apnea) 10/16/2011 Overview: acclimate 5 cm DME: [facility] Ureterolithiasis 11/12/2010 02/12/2011 Overview: Left Pain in joint, lower leg 05/28/2009 016 Other B-complex deficiencies 03/29/2008 Urethritis, unspecified 03/22/2008 02/13/20 11 Trigonitis 03/22/2008 05/09/2013 Hematuria 02/17/2008 02/12/2011 Esophagitis, unspecified 09/30/2007 016 Diaphragmatic hernia without mention of obstruction or gangrene 09/30/2007 01/29/2009 Acute gastritis without mention of hemorrhage 01/29/2009 Sebaceous cyst 01/18/2007 01/29/2009 Postmenopausal atrophic vaginitis 04/20/2006 11/03/2015 AORTIC ATRESIA/STENOSIS 07/07/2005 11/03/19 16 Overview: Infrarenal stent 2004 documented as of this encounter (statuses as of 01/07/2022) [facility] of Past illness Narrative* Problem Noted Date Resolved Date Other microscopic hematuria 11/04/201705/29 Overview: Dr. Galen Waters. Arteriosclerotic heart disease (ASHD) 06/10/2016 05/04/2017 Personal history of colonic polyps 06/07/2012 11/03/2016 JL (obstructive sleep apnea) 10/16/2011 Overview: acclimate 5 cm DME: [facility] Ureterolithiasis 11/12/2010 02/12/2011 Overview: Left Pain in joint, lower leg 05/28/2009 016 Other B-complex deficiencies 03/29/2008 Urethritis, unspecified 03/22/2008 02/13/20 11 Trigonitis 03/22/2008 05/09/2013 Hematuria 02/17/2008 02/12/2011 Esophagitis, unspecified 09/30/2007 016 Diaphragmatic hernia without mention of obstruction or gangrene 09/30/2007 01/29/2009 Acute gastritis without mention of hemorrhage 01/29/2009 Sebaceous cyst 01/18/2007 01/29/2009 Postmenopausal atrophic vaginitis 04/20/2006 11/03/2015 AORTIC ATRESIA/STENOSIS 07/07/2005 11/03/19 16 Overview: Infrarenal stent 2004 documented as of this encounter (statuses as of 01/08/2022) [facility] illness Narrative* Problem Noted Date Resolved Date Other microscopic hematuria 11/04/201705/29 Overview: Dr. Galen Waters. Arteriosclerotic heart disease (ASHD) 06/10/2016 05/04/2017 Personal history of colonic polyps 06/07/2012 11/03/2016 JL (obstructive sleep apnea) 10/16/2011 Overview: acclimate 5 cm DME: [facility] Ureterolithiasis 11/12/2010 02/12/2011 Overview: Left Pain in joint, lower leg 05/28/2009 016 Other B-complex deficiencies 03/29/2008 Urethritis, unspecified 03/22/2008 02/13/20 11 Trigonitis 03/22/2008 05/09/2013 Hematuria 02/17/2008 02/12/2011 Esophagitis, unspecified 09/30/2007 016 Diaphragmatic hernia without mention of obstruction or gangrene 09/30/2007 01/29/2009 Acute gastritis without mention of hemorrhage 01/29/2009 Sebaceous cyst 01/18/2007 01/29/2009 Postmenopausal atrophic vaginitis 04/20/2006 11/03/2015 AORTIC ATRESIA/STENOSIS 07/07/2005 11/03/19 16 Overview: Infrarenal stent 2004 documented as of this encounter (statuses as of 01/10/2022) [facility] illness Narrative* Problem Noted Date Resolved Date Other microscopic hematuria 11/04/201705/29 Overview: Dr. Galen Waters. Arteriosclerotic heart disease (ASHD) 06/10/2016 05/04/2017 Personal history of colonic polyps 06/07/2012 11/03/2016 JL (obstructive sleep apnea) 10/16/2011 Overview: acclimate 5 cm DME: [facility] Ureterolithiasis 11/12/2010 02/12/2011 Overview: Left Pain in joint, lower leg 05/28/2009 016 Other B-complex deficiencies 03/29/2008 Urethritis, unspecified 03/22/2008 02/13/20 11 Trigonitis 03/22/2008 05/09/2013 Hematuria 02/17/2008 02/12/2011 Esophagitis, unspecified 09/30/2007 016 Diaphragmatic hernia without mention of obstruction or gangrene 09/30/2007 01/29/2009 Acute gastritis without mention of hemorrhage 01/29/2009 Sebaceous cyst 01/18/2007 01/29/2009 Postmenopausal atrophic vaginitis 04/20/2006 11/03/2015 AORTIC ATRESIA/STENOSIS 07/07/2005 11/03/19 16 Overview: Infrarenal stent 2004 documented as of this encounter (statuses as of 01/28/2022) [facility] illness Narrative* Problem Noted Date Resolved Date Other microscopic hematuria 11/04/201705/29 Overview: Dr. Galen Waters. Arteriosclerotic heart disease (ASHD) 06/10/2016 05/04/2017 Personal history of colonic polyps 06/07/2012 11/03/2016 JL (obstructive sleep apnea) 10/16/2011 Overview: acclimate 5 cm DME: [facility] Ureterolithiasis 11/12/2010 02/12/2011 Overview: Left Pain in joint, lower leg 05/28/2009 016 Other B-complex deficiencies 03/29/2008 Urethritis, unspecified 03/22/2008 02/13/20 11 Trigonitis 03/22/2008 05/09/2013 Hematuria 02/17/2008 02/12/2011 Esophagitis, unspecified 09/30/2007 016 Diaphragmatic hernia without mention of obstruction or gangrene 09/30/2007 01/29/2009 Acute gastritis without mention of hemorrhage 01/29/2009 Sebaceous cyst 01/18/2007 01/29/2009 Postmenopausal atrophic vaginitis 04/20/2006 11/03/2015 AORTIC ATRESIA/STENOSIS 07/07/2005 11/03/19 16 Overview: Infrarenal stent 2004 documented as of this encounter (statuses as of 02/11/2022) [facility] Narrative* Problem Noted Date Resolved Date Other microscopic hematuria 11/04/201705/29 Overview: Dr. Galen Waters. Arteriosclerotic heart disease (ASHD) 06/10/2016 05/04/2017 Personal history of colonic polyps 06/07/2012 11/03/2016 JL (obstructive sleep apnea) 10/16/2011 Overview: acclimate 5 cm DME: [facility] Ureterolithiasis 11/12/2010 02/12/2011 Overview: Left Pain in joint, lower leg 05/28/2009 016 Other B-complex deficiencies 03/29/2008 Urethritis, unspecified 03/22/2008 02/13/20 11 Trigonitis 03/22/2008 05/09/2013 Hematuria 02/17/2008 02/12/2011 Esophagitis, unspecified 09/30/2007 016 Diaphragmatic hernia without mention of obstruction or gangrene 09/30/2007 01/29/2009 Acute gastritis without mention of hemorrhage 01/29/2009 Sebaceous cyst 01/18/2007 01/29/2009 Postmenopausal atrophic vaginitis 04/20/2006 11/03/2015 AORTIC ATRESIA/STENOSIS 07/07/2005 11/03/19 16 Overview: Infrarenal stent 2004 documented as of this encounter (statuses as of 03/25/2022) [facility] illness Narrative* Problem Noted Date Resolved Date Other microscopic hematuria 11/04/201705/29 Overview: Dr. Galen Waters. Arteriosclerotic heart disease (ASHD) 06/10/2016 05/04/2017 Personal history of colonic polyps 06/07/2012 11/03/2016 JL (obstructive sleep apnea) 10/16/2011 Overview: acclimate 5 cm DME: [facility] Ureterolithiasis 11/12/2010 02/12/2011 Overview: Left Pain in joint, lower leg 05/28/2009 016 Other B-complex deficiencies 03/29/2008 Urethritis, unspecified 03/22/2008 02/13/20 11 Trigonitis 03/22/2008 05/09/2013 Hematuria 02/17/2008 02/12/2011 Esophagitis, unspecified 09/30/2007 016 Diaphragmatic hernia without mention of obstruction or gangrene 09/30/2007 01/29/2009 Acute gastritis without mention of hemorrhage 01/29/2009 Sebaceous cyst 01/18/2007 01/29/2009 Postmenopausal atrophic vaginitis 04/20/2006 11/03/2015 AORTIC ATRESIA/STENOSIS 07/07/2005 11/03/19 16 Overview: Infrarenal stent 2004 documented as of this encounter (statuses as of 05/26/2022) [facility] illness Narrative* Problem Noted Date Resolved Date Other microscopic hematuria 11/04/201705/29 Overview: Dr. Galen Waters. Arteriosclerotic heart disease (ASHD) 06/10/2016 05/04/2017 Personal history of colonic polyps 06/07/2012 11/03/2016 JL (obstructive sleep apnea) 10/16/2011 Overview: acclimate 5 cm DME: [facility] Ureterolithiasis 11/12/2010 02/12/2011 Overview: Left Pain in joint, lower leg 05/28/2009 016 Other B-complex deficiencies 03/29/2008 Urethritis, unspecified 03/22/2008 02/13/20 11 Trigonitis 03/22/2008 05/09/2013 Hematuria 02/17/2008 02/12/2011 Esophagitis, unspecified 09/30/2007 016 Diaphragmatic hernia without mention of obstruction or gangrene 09/30/2007 01/29/2009 Acute gastritis without mention of hemorrhage 01/29/2009 Sebaceous cyst 01/18/2007 01/29/2009 Postmenopausal atrophic vaginitis 04/20/2006 11/03/2015 AORTIC ATRESIA/STENOSIS 07/07/2005 11/03/19 16 Overview: Infrarenal stent 2004 documented as of this encounter (statuses as of 06/26/2022) [facility] Narrative* Problem Noted Date Resolved Date Other microscopic hematuria 11/04/201705/29 Overview: Dr. Galen Waters. Arteriosclerotic heart disease (ASHD) 06/10/2016 05/04/2017 Personal history of colonic polyps 06/07/2012 11/03/2016 JL (obstructive sleep apnea) 10/16/2011 Overview: acclimate 5 cm DME: [facility] Ureterolithiasis 11/12/2010 02/12/2011 Overview: Left Pain in joint, lower leg 05/28/2009 016 Other B-complex deficiencies 03/29/2008 Urethritis, unspecified 03/22/2008 02/13/20 11 Trigonitis 03/22/2008 05/09/2013 Hematuria 02/17/2008 02/12/2011 Esophagitis, unspecified 09/30/2007 016 Diaphragmatic hernia without mention of obstruction or gangrene 09/30/2007 01/29/2009 Acute gastritis without mention of hemorrhage 01/29/2009 Sebaceous cyst 01/18/2007 01/29/2009 Postmenopausal atrophic vaginitis 04/20/2006 11/03/2015 AORTIC ATRESIA/STENOSIS 07/07/2005 11/03/19 16 Overview: Infrarenal stent 2004 documented as of this encounter (statuses as of 08/25/2022) [facility] Narrative* Problem Noted Date Resolved Date Other microscopic hematuria 11/04/201705/29 Overview: Dr. Galen Waters. Arteriosclerotic heart disease (ASHD) 06/10/2016 05/04/2017 Personal history of colonic polyps 06/07/2012 11/03/2016 JL (obstructive sleep apnea) 10/16/2011 Overview: acclimate 5 cm DME: [facility] Ureterolithiasis 11/12/2010 02/12/2011 Overview: Left Pain in joint, lower leg 05/28/2009 016 Other B-complex deficiencies 03/29/2008 Urethritis, unspecified 03/22/2008 02/13/20 11 Trigonitis 03/22/2008 05/09/2013 Hematuria 02/17/2008 02/12/2011 Esophagitis, unspecified 09/30/2007 016 Diaphragmatic hernia without mention of obstruction or gangrene 09/30/2007 01/29/2009 Acute gastritis without mention of hemorrhage 01/29/2009 Sebaceous cyst 01/18/2007 01/29/2009 Postmenopausal atrophic vaginitis 04/20/2006 11/03/2015 AORTIC ATRESIA/STENOSIS 07/07/2005 11/03/19 16 Overview: Infrarenal stent 2004 documented as of this encounter (statuses as of 09/07/2022) [facility] Narrative* Problem Noted Date Resolved Date Other microscopic hematuria 11/04/201705/29 Overview: Dr. Galen Waters. Arteriosclerotic heart disease (ASHD) 06/10/2016 05/04/2017 Personal history of colonic polyps 06/07/2012 11/03/2016 JL (obstructive sleep apnea) 10/16/2011 Overview: acclimate 5 cm DME: [facility] Ureterolithiasis 11/12/2010 02/12/2011 Overview: Left Pain in joint, lower leg 05/28/2009 016 Other B-complex deficiencies 03/29/2008 Urethritis, unspecified 03/22/2008 02/13/20 11 Trigonitis 03/22/2008 05/09/2013 Hematuria 02/17/2008 02/12/2011 Esophagitis, unspecified 09/30/2007 016 Diaphragmatic hernia without mention of obstruction or gangrene 09/30/2007 01/29/2009 Acute gastritis without mention of hemorrhage 01/29/2009 Sebaceous cyst 01/18/2007 01/29/2009 Postmenopausal atrophic vaginitis 04/20/2006 11/03/2015 AORTIC ATRESIA/STENOSIS 07/07/2005 11/03/19 16 Overview: Infrarenal stent 2004 documented as of this encounter (statuses as of 09/08/2022) [facility] History of Past illness Narrative* Problem Noted Date Resolved Date Other microscopic hematuria 11/04/201705/29 Overview: Dr. Galen Waters. Arteriosclerotic heart disease (ASHD) 06/10/2016 05/04/2017 Personal history of colonic polyps 06/07/2012 11/03/2016 JL (obstructive sleep apnea) 10/16/2011 Overview: acclimate 5 cm DME: [facility] Ureterolithiasis 11/12/2010 02/12/2011 Overview: Left Pain in joint, lower leg 05/28/2009 016 Other B-complex deficiencies 03/29/2008 Urethritis, unspecified 03/22/2008 02/13/20 11 Trigonitis 03/22/2008 05/09/2013 Hematuria 02/17/2008 02/12/2011 Esophagitis, unspecified 09/30/2007 016 Diaphragmatic hernia without mention of obstruction or gangrene 09/30/2007 01/29/2009 Acute gastritis without mention of hemorrhage 01/29/2009 Sebaceous cyst 01/18/2007 01/29/2009 Postmenopausal atrophic vaginitis 04/20/2006 11/03/2015 AORTIC ATRESIA/STENOSIS 07/07/2005 11/03/19 16 Overview: Infrarenal stent 2004 documented as of this encounter (statuses as of 10/04/2022) [facility] History of Past illness Narrative* Problem Noted Date Resolved Date Other microscopic hematuria 11/04/201705/29 Overview: Dr. Galen Waters. Arteriosclerotic heart disease (ASHD) 06/10/2016 05/04/2017 Personal history of colonic polyps 06/07/2012 11/03/2016 JL (obstructive sleep apnea) 10/16/2011 Overview: acclimate 5 cm DME: [facility] Ureterolithiasis 11/12/2010 02/12/2011 Overview: Left Pain in joint, lower leg 05/28/2009 016 Other B-complex deficiencies 03/29/2008 Urethritis, unspecified 03/22/2008 02/13/20 11 Trigonitis 03/22/2008 05/09/2013 Hematuria 02/17/2008 02/12/2011 Esophagitis, unspecified 09/30/2007 016 Diaphragmatic hernia without mention of obstruction or gangrene 09/30/2007 01/29/2009 Acute gastritis without mention of hemorrhage 01/29/2009 Sebaceous cyst 01/18/2007 01/29/2009 Postmenopausal atrophic vaginitis 04/20/2006 11/03/2015 AORTIC ATRESIA/STENOSIS 07/07/2005 11/03/19 16 Overview: Infrarenal stent 2004 documented as of this encounter (statuses as of 12/02/2022) [facility] History of Past illness Narrative* Problem Noted Date Resolved Date Other microscopic hematuria 11/04/201705/29 Overview: Dr. Galen Waters. Arteriosclerotic heart disease (ASHD) 06/10/2016 05/04/2017 Personal history of colonic polyps 06/07/2012 11/03/2016 JL (obstructive sleep apnea) 10/16/2011 Overview: acclimate 5 cm DME: [facility] Ureterolithiasis 11/12/2010 02/12/2011 Overview: Left Pain in joint, lower leg 05/28/2009 016 Other B-complex deficiencies 03/29/2008 Urethritis, unspecified 03/22/2008 02/13/20 11 Trigonitis 03/22/2008 05/09/2013 Hematuria 02/17/2008 02/12/2011 Esophagitis, unspecified 09/30/2007 016 Diaphragmatic hernia without mention of obstruction or gangrene 09/30/2007 01/29/2009 Acute gastritis without mention of hemorrhage 01/29/2009 Sebaceous cyst 01/18/2007 01/29/2009 Postmenopausal atrophic vaginitis 04/20/2006 11/03/2015 AORTIC ATRESIA/STENOSIS 07/07/2005 11/03/19 16 Overview: Infrarenal stent 2004 documented as of this encounter (statuses as of 01/06/2023) [facility] History of Past illness Narrative* Problem Noted Date Resolved Date Other microscopic hematuria 11/04/201705/29 Overview: Dr. Galen Waters. Arteriosclerotic heart disease (ASHD) 06/10/2016 05/04/2017 Personal history of colonic polyps 06/07/2012 11/03/2016 JL (obstructive sleep apnea) 10/16/2011 Overview: acclimate 5 cm DME: [facility] Ureterolithiasis 11/12/2010 02/12/2011 Overview: Left Pain in joint, lower leg 05/28/2009 016 Other B-complex deficiencies 03/29/2008 Urethritis, unspecified 03/22/2008 02/13/20 11 Trigonitis 03/22/2008 05/09/2013 Hematuria 02/17/2008 02/12/2011 Esophagitis, unspecified 09/30/2007 016 Diaphragmatic hernia without mention of obstruction or gangrene 09/30/2007 01/29/2009 Acute gastritis without mention of hemorrhage 01/29/2009 Sebaceous cyst 01/18/2007 01/29/2009 Postmenopausal atrophic vaginitis 04/20/2006 11/03/2015 AORTIC ATRESIA/STENOSIS 07/07/2005 11/03/19 16 Overview: Infrarenal stent 2004 documented as of this encounter (statuses as of 02/03/2023) [facility] History of Past illness Narrative* Problem Noted Date Resolved Date Other microscopic hematuria 11/04/201705/29 Overview: Dr. Galen Waters. Arteriosclerotic heart disease (ASHD) 06/10/2016 05/04/2017 Personal history of colonic polyps 06/07/2012 11/03/2016 JL (obstructive sleep apnea) 10/16/2011 Overview: acclimate 5 cm DME: [facility] Ureterolithiasis 11/12/2010 02/12/2011 Overview: Left Pain in joint, lower leg 05/28/2009 016 Other B-complex deficiencies 03/29/2008 Urethritis, unspecified 03/22/2008 02/13/20 11 Trigonitis 03/22/2008 05/09/2013 Hematuria 02/17/2008 02/12/2011 Esophagitis, unspecified 09/30/2007 016 Diaphragmatic hernia without mention of obstruction or gangrene 09/30/2007 01/29/2009 Acute gastritis without mention of hemorrhage 01/29/2009 Sebaceous cyst 01/18/2007 01/29/2009 Postmenopausal atrophic vaginitis 04/20/2006 11/03/2015 AORTIC ATRESIA/STENOSIS 07/07/2005 11/03/19 16 Overview: Infrarenal stent 2004 documented as of this encounter (statuses as of 02/05/2023) [facility] History of Past illness Narrative* Problem Noted Date Resolved Date Other microscopic hematuria 11/04/201705/29 Overview: Dr. Galen Waters. Arteriosclerotic heart disease (ASHD) 06/10/2016 05/04/2017 Personal history of colonic polyps 06/07/2012 11/03/2016 JL (obstructive sleep apnea) 10/16/2011 Overview: acclimate 5 cm DME: [facility] Ureterolithiasis 11/12/2010 02/12/2011 Overview: Left Pain in joint, lower leg 05/28/2009 016 Other B-complex deficiencies 03/29/2008 Urethritis, unspecified 03/22/2008 02/13/20 11 Trigonitis 03/22/2008 05/09/2013 Hematuria 02/17/2008 02/12/2011 Esophagitis, unspecified 09/30/2007 016 Diaphragmatic hernia without mention of obstruction or gangrene 09/30/2007 01/29/2009 Acute gastritis without mention of hemorrhage 01/29/2009 Sebaceous cyst 01/18/2007 01/29/2009 Postmenopausal atrophic vaginitis 04/20/2006 11/03/2015 AORTIC ATRESIA/STENOSIS 07/07/2005 11/03/19 16 Overview: Infrarenal stent 2004 documented as of this encounter (statuses as of 03/03/2023) [facility] History of Past illness Narrative* Problem Noted Date Resolved Date Other microscopic hematuria 11/04/201705/29 Overview: Dr. Galen Waters. Arteriosclerotic heart disease (ASHD) 06/10/2016 05/04/2017 Personal history of colonic polyps 06/07/2012 11/03/2016 JL (obstructive sleep apnea) 10/16/2011 Overview: acclimate 5 cm DME: [facility] Ureterolithiasis 11/12/2010 02/12/2011 Overview: Left Pain in joint, lower leg 05/28/2009 016 Other B-complex deficiencies 03/29/2008 Urethritis, unspecified 03/22/2008 02/13/20 11 Trigonitis 03/22/2008 05/09/2013 Hematuria 02/17/2008 02/12/2011 Esophagitis, unspecified 09/30/2007 016 Diaphragmatic hernia without mention of obstruction or gangrene 09/30/2007 01/29/2009 Acute gastritis without mention of hemorrhage 01/29/2009 Sebaceous cyst 01/18/2007 01/29/2009 Postmenopausal atrophic vaginitis 04/20/2006 11/03/2015 AORTIC ATRESIA/STENOSIS 07/07/2005 11/03/19 16 Overview: Infrarenal stent 2004 documented as of this encounter (statuses as of 03/25/2023) [facility] History of Past illness Narrative* Problem Noted Date Resolved Date Other microscopic hematuria 11/04/201705/29 Overview: Dr. Galen Waters. Arteriosclerotic heart disease (ASHD) 06/10/2016 05/04/2017 Personal history of colonic polyps 06/07/2012 11/03/2016 JL (obstructive sleep apnea) 10/16/2011 Overview: acclimate 5 cm DME: [facility] Ureterolithiasis 11/12/2010 02/12/2011 Overview: Left Pain in joint, lower leg 05/28/2009 016 Other B-complex deficiencies 03/29/2008 Urethritis, unspecified 03/22/2008 02/13/20 11 Trigonitis 03/22/2008 05/09/2013 Hematuria 02/17/2008 02/12/2011 Esophagitis, unspecified 09/30/2007 016 Diaphragmatic hernia without mention of obstruction or gangrene 09/30/2007 01/29/2009 Acute gastritis without mention of hemorrhage 01/29/2009 Sebaceous cyst 01/18/2007 01/29/2009 Postmenopausal atrophic vaginitis 04/20/2006 11/03/2015 AORTIC ATRESIA/STENOSIS 07/07/2005 11/03/19 16 Overview: Infrarenal stent 2004 documented as of this encounter (statuses as of 03/31/2023) [facility] History of Past illness Narrative* Problem Noted Date Diagnosed Date Resolved Date Other microscopic hematuria 11/04/2017 06/11/2020 Overview: Dr. Galen Waters. Arteriosclerotic heart disease (ASHD) 06/10/2016 05/04/2017 Personal history of colonic polyps 06/07/2012 11/03/2016 JL (obstructive sleep apnea) 10/16/2011 05/22/2015 Overview: acclimate 5 cm DME: [facility] Ureterolithiasis 11/12/2010 02/12/2011 Overview: Left Pain in joint, lower leg 05/28/200902/2016 Other B-complex deficiencies 03/29/2008 02/12/2011 Urethritis, unspecified 03/22/200801/26 Trigonitis 03/22/2008 05/09/2013 Hematuria 02/17/2008 02/12/2011 Esophagitis, unspecified 09/30/200702/2016 Diaphragmatic hernia without mention of obstruction or gangrene 09/30/2007 01/29/2009 Acute gastritis without mention of hemorrhage 09/30/19 08 01/29/2009 Sebaceous cyst 01/18/2007 01/29/2009 Postmenopausal atrophic vaginitis 04/20/2006 11/03/2015 AORTIC ATRESIA/STENOSIS 07/07/200502/2016 Overview: Infrarenal stent 2004 documented as of this encounter (statuses as of 06/26/2023) [facility] History of Past illness Narrative* Problem Noted Date Diagnosed Date Resolved Date Other microscopic hematuria 11/04/2017 06/11/2020 Overview: Dr. Galen Waters. Arteriosclerotic heart disease (ASHD) 06/10/2016 05/04/2017 Personal history of colonic polyps 06/07/2012 11/03/2016 JL (obstructive sleep apnea) 10/16/2011 05/22/2015 Overview: acclimate 5 cm DME: [facility] Ureterolithiasis 11/12/2010 02/12/2011 Overview: Left Pain in joint, lower leg 05/28/200902/2016 Other B-complex deficiencies 03/29/2008 02/12/2011 Urethritis, unspecified 03/22/200801/26 Trigonitis 03/22/2008 05/09/2013 Hematuria 02/17/2008 02/12/2011 Esophagitis, unspecified 09/30/200702/2016 Diaphragmatic hernia without mention of obstruction or gangrene 09/30/2007 01/29/2009 Acute gastritis without mention of hemorrhage 09/30/19 08 01/29/2009 Sebaceous cyst 01/18/2007 01/29/2009 Postmenopausal atrophic vaginitis 04/20/2006 11/03/2015 AORTIC ATRESIA/STENOSIS 07/07/200502/2016 Overview: Infrarenal stent 2004 documented as of this encounter (statuses as of 08/06/2023) [facility] History of Past illness Narrative* Problem Noted Date Diagnosed Date Resolved Date Other microscopic hematuria 11/04/2017 06/11/2020 Overview: Dr. Galen Waters. Arteriosclerotic heart disease (ASHD) 06/10/2016 05/04/2017 Personal history of colonic polyps 06/07/2012 11/03/2016 JL (obstructive sleep apnea) 10/16/2011 05/22/2015 Overview: acclimate 5 cm DME: [facility] Ureterolithiasis 11/12/2010 02/12/2011 Overview: Left Pain in joint, lower leg 05/28/200902/2016 Other B-complex deficiencies 03/29/2008 02/12/2011 Urethritis, unspecified 03/22/200801/26 Trigonitis 03/22/2008 05/09/2013 Hematuria 02/17/2008 02/12/2011 Esophagitis, unspecified 09/30/200702/2016 Diaphragmatic hernia without mention of obstruction or gangrene 09/30/2007 01/29/2009 Acute gastritis without mention of hemorrhage 09/30/19 08 01/29/2009 Sebaceous cyst 01/18/2007 01/29/2009 Postmenopausal atrophic vaginitis 04/20/2006 11/03/2015 AORTIC ATRESIA/STENOSIS 07/07/200502/2016 Overview: Infrarenal stent 2004 documented as of this encounter (statuses as of 12/30/2023) [facility] 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 Left leg pain Pain in limb Recurrent falls Personal history of fall Left leg weakness Other musculoskeletal symptoms referable to limbs [facility] Diagnosis Left leg pain- Primary Pain in limb Recurrent falls Personal history of fall Left leg weakness Other musculoskeletal symptoms referable to limbs 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) [facility] Diagnosis Anxiety state Anxiety state, unspecified [facility] Diagnosis Urgency incontinence Urge incontinence [facility] Diagnosis Left leg pain- Primary Pain in limb Left leg weakness Other musculoskeletal symptoms referable to limbs Gait abnormality Abnormality of gait [facility] Diagnosis Onset Date Resolution Status Aortic valve stenosis, acquired acute Atherosclerotic heart diseas [place] coronary artery without angina pectoris chronic Bilateral carotid artery disease chronic Essential hypertension chron ic Mixed hyperlipidemia chronic Presence of stent in coronary artery November, chronic 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 February, [facility] Work Phone: Evaluation note* Diagnosis Left leg pain Pain in limb Recurrent falls Personal history of fall Left leg weakness Other musculoskeletal symptoms referable to limbs [facility] [place] [facility] Diagnosis Anterior cervical lymphadenopathy- Primary Enlargement of lymph nodes Mixed hyperlipidemia Need for influenza vaccination Need for prophylactic vaccination and inoculation against influenza Gait abnormality Abnormality of gait 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) Type II or unspecified type diabetes mellitus with neurological manifestations, not stated as uncontrolled Need for COVID-19 vaccine [facility] Diagnosis Urgency incontinence- Primary Urge incontinence Anterior cervical lymphadenopathy Enlargement of lymph nodes Mixed incontinence Mixed incontinence urge and stress (male)(female) Polycythemia Polycythemia vera 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) Type II or unspecified type diabetes mellitus with neurological manifestations, not stated as uncontrolled [facility] 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) Type II or unspecified type diabetes mellitus with neurological manifestations, not stated as uncontrolled [facility] 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)- Primary Type II or unspecified type diabetes mellitus with neurological manifestations, not stated as uncontrolled Gait abnormality Abnormality of gait At risk for falling Personal history of fall [facility] [place] [facility] Diagnosis Anxiety state Anxiety state, unspecified [facility] Diagnosis 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) Type II or unspecified type diabetes mellitus with neurological manifestations, not stated as uncontrolled [facility] Mixed hyperlipidemia [facility] Diagnosis Cellulitis of left ear- Primary [facility] Diagnosis Atherosclerosis [place] coronary artery of [place] heart without angina pectoris [facility] Diagnosis 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) Type II or unspecified type diabetes mellitus with neurological manifestations, not stated as uncontrolled [facility] Diagnosis Anxiety state Anxiety state, unspecified [facility] Diagnosis Mixed hyperlipidemia [facility] Diagnosis Mixed hyperlipidemia- Primary 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) Type II or unspecified type diabetes mellitus with neurological manifestations, not stated as uncontrolled Vitamin D deficiency Unspecified vitamin D deficiency [facility] Diagnosis Atherosclerosis [place] coronary artery of [place] heart without angina pectoris 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) Type II or unspecified type diabetes mellitus with neurological manifestations, not stated as uncontrolled [facility] Diagnosis Medicare annual wellness visit, subsequent- Primary Routine general medical examination at a health care facility Mixed hyperlipidemia Vitamin D deficiency Unspecified vitamin D deficiency Polycythemia Polycythemia vera 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) Type II or unspecified type diabetes mellitus with neurological manifestations, not stated as uncontrolled Osteoporosis, post-menopausal Senile osteoporosis Tremor, essential Essential and other specified forms of tremor Cognitive decline Unspecified persistent mental disorders due to conditions classified elsewhere Atherosclerosis [place] coronary artery of [place] heart without angina pectoris Benign neoplasm of colon, unspecified part of colon [facility] [place] [facility] Diagnosis Benign neoplasm of colon, unspecified part of colon [facility] [place] [facility]* Diagnosis 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) Sensory ataxia Lack of coordination Other polyneuropathy [facility] [place] [facility]* Diagnosis Urgency incontinence- Primary Urge incontinence [facility] [place] [facility]* Diagnosis Osteoporosis, post-menopausal Senile osteoporosis [facility] [place] [facility]* Diagnosis CAD S/P percutaneous coronary angioplasty- Primary Coronary atherosclerosis of [place] coronary artery Primary hypertension Unspecified essential hypertension Mixed hyperlipidemia JL on CPAP Obstructive sleep apnea (adult) (pediatric) PAD (peripheral artery disease) (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) Type II or unspecified type diabetes mellitus with neurological manifestations, not stated as uncontrolled Urgency incontinence Urge incontinence [facility] [place] [facility]* Diagnosis 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)- Primary Type II or unspecified type diabetes mellitus with neurological manifestations, not stated as uncontrolled Nonrheumatic aortic valve stenosis Aortic valve disorders Atherosclerosis of [place] coronary artery of [place] heart without angina pectoris 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 behavioral disturbance, psychotic disturbance, mood disturbance, or anxiety, unspecified dementia type (HCC) 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 (HCC) Gait abnormality Abnormality of gait Polycythemia Polycythemia vera [facility] [place] [facility]* Diagnosis 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 behavioral disturbance, psychotic disturbance, mood disturbance, or anxiety, unspecified dementia type (HCC)- Primary Parkinsonism, unspecified Parkinsonism type (HCC) Sensory ataxia Lack of coordination Other polyneuropathy B12 deficiency Other B-complex deficiencies [facility] Diagnosis 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 behavioral disturbance, psychotic disturbance, mood disturbance, or anxiety, unspecified dementia type (HCC) 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 (HCC) Gait abnormality Abnormality of gait [facility] Diagnosis Anxiety state Anxiety state, unspecified [facility] Diagnosis 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) Type II or unspecified type diabetes mellitus with neurological manifestations, not stated as uncontrolled Urgency incontinence Urge incontinence [facility] Diagnosis TIA (transient ischemic attack)- Primary Unspecified transient cerebral ischemia Atherosclerosis of [place] coronary artery of [place] heart without angina pectoris Meningioma (HCC) Benign neoplasm of cerebral meninges 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 behavioral disturbance, psychotic disturbance, mood disturbance, or anxiety, unspecified dementia type (HCC) Bilateral carotid artery stenosis Occlusion and stenosis of carotid artery without mention of cerebral infarction Influenza Influenza with other respiratory manifestations [facility] Diagnosis Acute cough- Primary Acute cough [facility] Diagnosis Medicare annual wellness visit, subsequent- Primary Routine general medical examination at a health care facility Polycythemia Polycythemia vera Mixed hyperlipidemia Nonrheumatic aortic valve stenosis Aortic valve disorders 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 (HCC) JL on CPAP Obstructive sleep apnea (adult) (pediatric) Osteoporosis, 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) Type II or unspecified type diabetes mellitus with neurological manifestations, not stated as uncontrolled Urgency incontinence Urge incontinence [facility] Diagnosis 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 behavioral disturbance, psychotic disturbance, mood disturbance, or anxiety, unspecified dementia type (HCC)- Primary Sensory ataxia Lack of coordination Other polyneuropathy Seizure-like activity (HCC) Other convulsions Parkinsonism, unspecified Parkinsonism type (HCC) [facility], initial encounter- Primary Contusion of knee, unspecified laterality, initial encounter Contusion of right hand, initial encounter Contusion of dorsum of right hand Skin tear of right hand without complication, initial encounter Contusion of knee, unspecified laterality, initial encounter Fall, initial encounter Contusion of right hand, initial encounter [facility] Contusion of knee, unspecified laterality, initial encounter Fall, initial encounter Contusion of right hand, initial encounter [facility] Diagnosis Coronary artery disease due to lipid rich plaque- Primary PVD (peripheral vascular disease) Peripheral vascular disease, unspecified Mitral regurgitation and aortic stenosis Mitral valve insufficiency and aortic valve stenosis Bilateral carotid artery stenosis Occlusion and stenosis of carotid artery without mention of cerebral infarction Abdominal aortic aneurysm (AAA) without rupture, unspecified part Smoker Tobacco use disorder [facility] [place] [facility] Diagnosis Aortic valve stenosis, etiology of cardiac valve disease unspecified- Primary [facility] [place] [facility]* Diagnosis Atherosclerosis of [place] coronary artery of [place] heart without angina pectoris [facility] [place] [facility]* Diagnosis 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) Type II or unspecified type diabetes mellitus with neurological manifestations, not stated as uncontrolled documented in this encounter [facility] for referral (narrative)* Outpatient Procedure (Routine) - Authorized Specialty Diagnoses / Procedures Referred By Candice ness Referred To [facility] Diagnoses Left leg pain Left leg weakness Gait abnormality Procedures PVR LEG [facility] NON-INVASIVE PHYSIOLOGIC STUDY EXTREMITY 3 Matheus Toledo MD [address] [place] [address] [facility] [address] [place] [address] Referral ID Status Reason Start Date Expiration Date Visits Requested Visits Authorized [id number] Authorized Auto-Generat ed Referral 03/24/2022 03/24/2023 1 1 [facility] for referral (narrative)* Diagnostic Procedure Only (Routine) - Authorized Specialty Diagnoses / Procedures Referred By Candice ness Referred To Contact US IMAGING Diagnoses Anterior cervical lymphadenopathy Procedures US THYROID/PARATHYROID US SOFT TISSUE HEAD & NECK REAL TIME IMGE Matheus Gee MD [address] [place] [address] Us Imaging Referral ID Status Reason Start Date Expiration Date Visits Requested Visits Authorized [id number] Authorized Auto-Generat ed Referral 06/26/2022 07/26/2023 1 1 [facility] for referral (narrative)* Outpatient Procedure (Routine) - New Request Specialty Diagnoses / Procedures Referred By Contac t Referred To [facility] Diagnoses CAD S/P percutaneous coronary angioplasty Primary hypertension Mixed hyperlipidemia JL on CPAP PAD (peripheral artery disease) (HCC) Nonrheumatic aortic valve stenosis S/P right coronary artery (RCA) stent placement Procedures ECHO ECHO TTHRC R-T 2D W/WOM-MODE COMPL SPEC&COLR D Elvira Gunter DO [address] [place] [address] Heart [facility] [address] [address] Referral ID Status Reason Start Date Expiration Date Visits Requested Visits Authorized [id number] New Request Auto-Generat ed Referral 05/18/2024 05/18/2025 1 1 [facility] for referral (narrative)No reason for referral information availableCommunity Hospital Services Work Phone: [facility] Narrative* Diagnostic Procedure Only (Routine) - Closed Specialty Diagnoses / Procedures Referred By Contac t Referred To Contact XR IMAGING Diagnoses Osteoporosis, post-menopausal Procedures DXA-AXIAL SKELETON DXA BONE DENSITY STUDY 1/> SITES AXIAL SKMatheus Blackman MD [address] [place] [address] [place] [address] Referral ID Status Reason Start Date Expiration Date V isits Requested Visits Authorized [id number] Closed Auto-Generate d Referral 02/18/2024 09/27/2024 1 1 [facility] for visit Narrative* Diagnostic Procedure Only (Urgent) - Closed Specialty Diagnoses / Procedures Referred By Contac t Referred To Contact XR IMAGING Diagnoses Fall, initial encounter Contusion of right hand, initial encounter Procedures XR HAND GENERAL 3V PA/LAT/OBL RIGHT RADEX HAND MINIMUM 3 VIEWS Thea Cordoba, CONTACT WORKER LITHOGRAPHY.OUTSIDE SALES ACCOUNT REPRESENTATIVE [address] [place] [address] Phone: tel: fax: [facility] [address] Referral ID Status Reason Start Date Expiration Date V isits Requested Visits Authorized [id number] Closed Auto-Generate d Referral 03/14/2025 04/13/2026 1 1 [facility] Summary Purpose Family History No Family History Records Found Relationship Condition Age at Onset Recorded Date/T kapil father Myocardial infarction Unknown Cardiac disease Unknown Cerebrovascular accident (CVA) Unknown Diabetes mellitus Unknown brother Coronary artery disease Unknown Advance Directives No Advanced Directives Records FoundDocuments on File Type Date Recorded 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 Advance Directive(s) 05/22/2017 9:25 AM Documents on File Type Date Recorded 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 Advance Directive(s) 05/22/2017 9:25 AM Advance Directive Response Recorded Date/ Time Living Will Yes July 26 4:37pm Power of Helper Coordinator Yes July 26, 2021 4:37pm Reason for Referral Specialty Diagnoses / Procedures Referred By Candice t Referred To Contact [facility] Diagnoses Left leg pain Recurrent falls Left leg weakness 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) Procedures CONSULT TO PHYSICAL THERAPY PHYSICAL THERAPY EVALUATION HIGH COMPLEX 45 MINS Kimberly Rothman, CONTACT WORKER LITHOGRAPHY.OUTSIDE SALES ACCOUNT REPRESENTATIVE [address] [place] [address] [facility] [address] [place] [address] Referral ID Status Reason Start Date Expiration Date Visits Requested Visits Authorized [id number] Pending Review Auto-Generat ed Referral 01/07/2022 01/07/2023 1 1 Specialty Diagnoses / Procedures Referred By Candice t Referred To Contact Urology Diagnoses Urgency incontinence Mixed incontinence Procedures CONSULT TO UROLOGY Matheus Fajardo MD [address] [place] [address] Referral ID Status Reason Start Date Expiration Date Visits Requested Visits Authorized [id number] Ref Not Required PCP Requested Referral 09/05/2022 09/05/2023 1 1 Specialty Diagnoses / Procedures Referred By Candice t Referred To Contact General Surgery Diagnoses Benign neoplasm of colon, unspecified part of colon Procedures CONSULT TO GENERAL SURGERY OFFICE/OUTPATIENT [facility] 60 MINUTES Matheus Fajardo MD [address] [place] [address] Referral ID Status Reason Start Date Expiration Date Visits Requested Visits Authorized [id number] Authorized PCP Requested Referral 02/18/2024 02/17/2025 1 1 Specialty Diagnoses / Procedures Referred By Contac t Referred To Contact Cardiology Diagnoses Atherosclerosis of [place] coronary artery of [place] heart without angina pectoris Procedures CONSULT TO CARDIOLOGY OFFICE/OUTPATIENT [facility] 60 MINUTES Matheus Fajardo MD [address] [place] [address] Referral ID Status Reason Start Date Expiration Date Visits Requested Visits Authorized [id number] Authorized PCP Requested Referral 02/18/2024 02/17/2025 1 1 Specialty Diagnoses / Procedures Referred By Contac t Referred To Contact XR IMAGING Diagnoses Osteoporosis, post-menopausal Procedures DXA-AXIAL SKELETON DXA BONE DENSITY STUDY / SITES AXIAL SKEL Matheus Fajardo MD [address] [place] [address] Xr Imaging [facility] Referral ID Status Reason Start Date Expiration Date Visits Requested Visits Authorized [id number] Authorized Auto-Generat ed Referral 02/18/2024 09/27/2024 1 1 Specialty Diagnoses / Procedures Referred By Contac t Referred To Contact [facility] Diagnoses 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 behavioral disturbance, psychotic disturbance, mood disturbance, or anxiety, unspecified dementia type (HCC) 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 (HCC) Gait abnormality Procedures CONSULT TO PHYSICAL THERAPY PHYSICAL THERAPY EVALUATION HIGH COMPLEX 45 MINS Matheus Fajardo MD [address] [place] [address] [facility] [address] [place] [address] Referral ID Status Reason Start Date Expiration Date Visits Requested Visits Authorized [id number] Authorized Auto-Generat ed Referral 09/28/2023 09/27/2024 99 99 Chief Complaint and Reason for Visit Chief Complaint 9 M FU ASHD, AV STENOSIS Reason for Visit Aortic valve stenosi s, acquired Atherosclerotic heart disease of [place] coronary artery without angina pectoris Bilateral carotid artery disease Essential hypertension Mixed hyperlipidemia Presence of stent in coronary artery Stenosis of infrarenal abdominal aorta due to atherosclerosis Chief Complaint Admit Date B/L Carotid artery disease December 02 3:27pm STROKE March 21, 2025 1:24 pm Reason for Visit Admit Date Carotid artery stenosis December 02, 2024 3:27pm Additional Source Comments INFORMATION SOURCE (unrecogn ized section and content) DATE CREATED AUTHOR 03/23/2018 [facility] DATE CREATED AUTHOR AUTHOR'S ORGANIZ ATION 03/23/2018 [facility] DATE CREATED AUTHOR AUTHOR'S ORGANIZ ATION 11/29/2024 [facility] DATE CREATED AUTHOR AUTHOR'S ORGANIZ ATION 03/06/2025 [facility] DATE CREATED AUTHOR AUTHOR'S ORGANIZ ATION 05/25/2025 [facility] DATE CREATED AUTHOR AUTHOR'S ORGANIZ ATION 06/03/2025 [facility] Source Comments (unrecognize d section and content) In the event this informatio n is protected by the Federal Confidentiality of Alcohol and Drug Abuse Patient Records regulations: The Federal rules restrict any use of the information to criminally investigate or prosecute any alcohol or drug abuse patient.[facility] the event this information is protected by the Federal Confidentiality of Alcohol and Drug Abuse Patient Records regulations: The Federal rules restrict any use of the information to criminally investigate or prosecute any alcohol or drug abuse patient.[facility] the event this information is protected by the Federal Confidentiality of Alcohol and Drug Abuse Patient Records regulations: The Federal rules restrict any use of the information to criminally investigate or prosecute any alcohol or drug abuse patient.[facility] HospitalIn the event this information is protected by the Federal Confidentiality of Alcohol and Drug Abuse Patient Records regulations: The Federal rules restrict any use of the information to criminally investigate or prosecute any alcohol or drug abuse patient.[facility] HospitalIn the event this information is protected by the Federal Confidentiality of Alcohol and Drug Abuse Patient Records regulations: The Federal rules restrict any use of the information to criminally investigate or prosecute any alcohol or drug abuse patient.[facility] HospitalIn the event this information is protected by the Federal Confidentiality of Alcohol and Drug Abuse Patient Records regulations: The Federal rules restrict any use of the information to criminally investigate or prosecute any alcohol or drug abuse patient.[facility] HospitalIn the event this information is protected by the Federal Confidentiality of Alcohol and Drug Abuse Patient Records regulations: The Federal rules restrict any use of the information to criminally investigate or prosecute any alcohol or drug abuse patient.[facility] HospitalIn the event this information is protected by the Federal Confidentiality of Alcohol and Drug Abuse Patient Records regulations: The Federal rules restrict any use of the information to criminally investigate or prosecute any alcohol or drug abuse patient.[facility] HospitalIn the event this information is protected by the Federal Confidentiality of Alcohol and Drug Abuse Patient Records regulations: The Federal rules restrict any use of the information to criminally investigate or prosecute any alcohol or drug abuse patient.[facility] HospitalIn the event this information is protected by the Federal Confidentiality of Alcohol and Drug Abuse Patient Records regulations: The Federal rules restrict any use of the information to criminally investigate or prosecute any alcohol or drug abuse patient.[facility] HospitalIn the event this information is protected by the Federal Confidentiality of Alcohol and Drug Abuse Patient Records regulations: The Federal rules restrict any use of the information to criminally investigate or prosecute any alcohol or drug abuse patient.[facility] HospitalIn the event this information is protected by the Federal Confidentiality of Alcohol and Drug Abuse Patient Records regulations: The Federal rules restrict any use of the information to criminally investigate or prosecute any alcohol or drug abuse patient.[facility] HospitalIn the event this information is protected by the Federal Confidentiality of Alcohol and Drug Abuse Patient Records regulations: The Federal rules restrict any use of the information to criminally investigate or prosecute any alcohol or drug abuse patient.[facility] HospitalIn the event this information is protected by the Federal Confidentiality of Alcohol and Drug Abuse Patient Records regulations: The Federal rules restrict any use of the information to criminally investigate or prosecute any alcohol or drug abuse patient.[facility] HospitalIn the event this information is protected by the Federal Confidentiality of Alcohol and Drug Abuse Patient Records regulations: The Federal rules restrict any use of the information to criminally investigate or prosecute any alcohol or drug abuse patient.[facility] HospitalIn the event this information is protected by the Federal Confidentiality of Alcohol and Drug Abuse Patient Records regulations: The Federal rules restrict any use of the information to criminally investigate or prosecute any alcohol or drug abuse patient.[facility] HospitalIn the event this information is protected by the Federal Confidentiality of Alcohol and Drug Abuse Patient Records regulations: The Federal rules restrict any use of the information to criminally investigate or prosecute any alcohol or drug abuse patient.[facility] HospitalIn the event this information is protected by the Federal Confidentiality of Alcohol and Drug Abuse Patient Records regulations: The Federal rules restrict any use of the information to criminally investigate or prosecute any alcohol or drug abuse patient.[facility] HospitalIn the event this information is protected by the Federal Confidentiality of Alcohol and Drug Abuse Patient Records regulations: The Federal rules restrict any use of the information to criminally investigate or prosecute any alcohol or drug abuse patient.[facility] HospitalIn the event this information is protected by the Federal Confidentiality of Alcohol and Drug Abuse Patient Records regulations: The Federal rules restrict any use of the information to criminally investigate or prosecute any alcohol or drug abuse patient.[facility] HospitalIn the event this information is protected by the Federal Confidentiality of Alcohol and Drug Abuse Patient Records regulations: The Federal rules restrict any use of the information to criminally investigate or prosecute any alcohol or drug abuse patient.[facility] HospitalIn the event this information is protected by the Federal Confidentiality of Alcohol and Drug Abuse Patient Records regulations: The Federal rules restrict any use of the information to criminally investigate or prosecute any alcohol or drug abuse patient.[facility] HospitalIn the event this information is protected by the Federal Confidentiality of Alcohol and Drug Abuse Patient Records regulations: The Federal rules restrict any use of the information to criminally investigate or prosecute any alcohol or drug abuse patient.[facility] HospitalIn the event this information is protected by the Federal Confidentiality of Alcohol and Drug Abuse Patient Records regulations: The Federal rules restrict any use of the information to criminally investigate or prosecute any alcohol or drug abuse patient.[facility] HospitalIn the event this information is protected by the Federal Confidentiality of Alcohol and Drug Abuse Patient Records regulations: The Federal rules restrict any use of the information to criminally investigate or prosecute any alcohol or drug abuse patient.[facility] HospitalIn the event this information is protected by the Federal Confidentiality of Alcohol and Drug Abuse Patient Records regulations: The Federal rules restrict any use of the information to criminally investigate or prosecute any alcohol or drug abuse patient.[facility] HospitalIn the event this information is protected by the Federal Confidentiality of Alcohol and Drug Abuse Patient Records regulations: The Federal rules restrict any use of the information to criminally investigate or prosecute any alcohol or drug abuse patient.[facility] HospitalIn the event this information is protected by the Federal Confidentiality of Alcohol and Drug Abuse Patient Records regulations: The Federal rules restrict any use of the information to criminally investigate or prosecute any alcohol or drug abuse patient.[facility] HospitalIn the event this information is protected by the Federal Confidentiality of Alcohol and Drug Abuse Patient Records regulations: The Federal rules restrict any use of the information to criminally investigate or prosecute any alcohol or drug abuse patient.[facility] HospitalIn the event this information is protected by the Federal Confidentiality of Alcohol and Drug Abuse Patient Records regulations: The Federal rules restrict any use of the information to criminally investigate or prosecute any alcohol or drug abuse patient.[facility] HospitalIn the event this information is protected by the Federal Confidentiality of Alcohol and Drug Abuse Patient Records regulations: The Federal rules restrict any use of the information to criminally investigate or prosecute any alcohol or drug abuse patient.[facility] HospitalIn the event this information is protected by the Federal Confidentiality of Alcohol and Drug Abuse Patient Records regulations: The Federal rules restrict any use of the information to criminally investigate or prosecute any alcohol or drug abuse patient.[facility] HospitalIn the event this information is protected by the Federal Confidentiality of Alcohol and Drug Abuse Patient Records regulations: The Federal rules restrict any use of the information to criminally investigate or prosecute any alcohol or drug abuse patient.[facility] HospitalIn the event this information is protected by the Federal Confidentiality of Alcohol and Drug Abuse Patient Records regulations: The Federal rules restrict any use of the information to criminally investigate or prosecute any alcohol or drug abuse patient.[facility] HospitalIn the event this information is protected by the Federal Confidentiality of Alcohol and Drug Abuse Patient Records regulations: The Federal rules restrict any use of the information to criminally investigate or prosecute any alcohol or drug abuse patient.[facility] HospitalIn the event this information is protected by the Federal Confidentiality of Alcohol and Drug Abuse Patient Records regulations: The Federal rules restrict any use of the information to criminally investigate or prosecute any alcohol or drug abuse patient.[facility] HospitalIn the event this information is protected by the Federal Confidentiality of Alcohol and Drug Abuse Patient Records regulations: The Federal rules restrict any use of the information to criminally investigate or prosecute any alcohol or drug abuse patient.[facility] HospitalIn the event this information is protected by the Federal Confidentiality of Alcohol and Drug Abuse Patient Records regulations: The Federal rules restrict any use of the information to criminally investigate or prosecute any alcohol or drug abuse patient.[facility] HospitalIn the event this information is protected by the Federal Confidentiality of Alcohol and Drug Abuse Patient Records regulations: The Federal rules restrict any use of the information to criminally investigate or prosecute any alcohol or drug abuse patient.[facility] HospitalIn the event this information is protected by the Federal Confidentiality of Alcohol and Drug Abuse Patient Records regulations: The Federal rules restrict any use of the information to criminally investigate or prosecute any alcohol or drug abuse patient.[facility] HospitalIn the event this information is protected by the Federal Confidentiality of Alcohol and Drug Abuse Patient Records regulations: The Federal rules restrict any use of the information to criminally investigate or prosecute any alcohol or drug abuse patient.[facility] HospitalIn the event this information is protected by the Federal Confidentiality of Alcohol and Drug Abuse Patient Records regulations: The Federal rules restrict any use of the information to criminally investigate or prosecute any alcohol or drug abuse patient.[facility] HospitalIn the event this information is protected by the Federal Confidentiality of Alcohol and Drug Abuse Patient Records regulations: The Federal rules restrict any use of the information to criminally investigate or prosecute any alcohol or drug abuse patient.[facility] HospitalIn the event this information is protected by the Federal Confidentiality of Alcohol and Drug Abuse Patient Records regulations: The Federal rules restrict any use of the information to criminally investigate or prosecute any alcohol or drug abuse patient.[facility] HospitalIn the event this information is protected by the Federal Confidentiality of Alcohol and Drug Abuse Patient Records regulations: The Federal rules restrict any use of the information to criminally investigate or prosecute any alcohol or drug abuse patient.[facility] HospitalIn the event this information is protected by the Federal Confidentiality of Alcohol and Drug Abuse Patient Records regulations: The Federal rules restrict any use of the information to criminally investigate or prosecute any alcohol or drug abuse patient.[facility] HospitalIn the event this information is protected by the Federal Confidentiality of Alcohol and Drug Abuse Patient Records regulations: The Federal rules restrict any use of the information to criminally investigate or prosecute any alcohol or drug abuse patient.[facility] HospitalIn the event this information is protected by the Federal Confidentiality of Alcohol and Drug Abuse Patient Records regulations: The Federal rules restrict any use of the information to criminally investigate or prosecute any alcohol or drug abuse patient.[facility] HospitalIn the event this information is protected by the Federal Confidentiality of Alcohol and Drug Abuse Patient Records regulations: The Federal rules restrict any use of the information to criminally investigate or prosecute any alcohol or drug abuse patient.[facility] Hospital[facility] the event this information is protected by the Federal Confidentiality of Alcohol and Drug Abuse Patient Records regulations: The Federal rules restrict any use of the information to criminally investigate or prosecute any alcohol or drug abuse patient.[facility] HospitalIn the event this information is protected by the Federal Confidentiality of Alcohol and Drug Abuse Patient Records regulations: The Federal rules restrict any use of the information to criminally investigate or prosecute any alcohol or drug abuse patient.[facility] HospitalIn the event this information is protected by the Federal Confidentiality of Alcohol and Drug Abuse Patient Records regulations: The Federal rules restrict any use of the information to criminally investigate or prosecute any alcohol or drug abuse patient.[facility] HospitalIn the event this information is protected by the Federal Confidentiality of Alcohol and Drug Abuse Patient Records regulations: The Federal rules restrict any use of the information to criminally investigate or prosecute any alcohol or drug abuse patient.[facility] HospitalIn the event this information is protected by the Federal Confidentiality of Alcohol and Drug Abuse Patient Records regulations: The Federal rules restrict any use of the information to criminally investigate or prosecute any alcohol or drug abuse patient.[facility] HospitalIn the event this information is protected by the Federal Confidentiality of Alcohol and Drug Abuse Patient Records regulations: The Federal rules restrict any use of the information to criminally investigate or prosecute any alcohol or drug abuse patient.[facility] HospitalIn the event this information is protected by the Federal Confidentiality of Alcohol and Drug Abuse Patient Records regulations: The Federal rules restrict any use of the information to criminally investigate or prosecute any alcohol or drug abuse patient.[facility] HospitalIn the event this information is protected by the Federal Confidentiality of Alcohol and Drug Abuse Patient Records regulations: The Federal rules restrict any use of the information to criminally investigate or prosecute any alcohol or drug abuse patient.[facility] Reason for Visit (unrecogniz ed section and content) Reason Onset Date Comments EMG 12/27/2021 Specialty Diagnoses / Procedures Referred By Candice ness Referred To Contact [facility] Diagnoses Left leg pain Recurrent falls Left leg weakness Procedures EMG(NEURO/NI) NERVE CONDUCTION STUDIES 9-10 STUDIES Manohar Millard Jr., [place] [address] [id number] [facility] [address] [place] [address] Referral ID Status Reason Start Date Expiration Date V isits Requested Visits Authorized [id number] Closed Auto-Generate d Referral 12/13/2021 12/13/2022 1 1 Reason Comments Clarifying date Reason Comments Leg Weakness Reason Comments Appointment Reason Comments EMG results Reason Onset Date Comments Refill Request 01/09/2022 Reason Onset Date Comments Refill Request 02/10/2022 Reason Comments Left leg pain Reason Onset Date Comments Refill Request 05/26/2022 Reason Onset Date Comments F/U 3 Month Immunizations 06/26/2022 Flu vaccination Reason Comments Patient Update Reason Comments Follow Up 6 week follow up, in continence issues, gabapentin issues and thyroid Reason Onset Date Comments Refill Request 09/06/2022 Reason Comments Orders Reason Onset Date Comments Refill Request Refill Request 10/03/2022 Reason Onset Date Comments Refill Request 12/01/2022 Reason Onset Date Comments Refill Request 01/05/2023 Reason Comments Pain Pt reported (LT) ear pain external reported redness x1 wk. Reason Onset Date Comments Refill Request 03/02/2023 Reason Onset Date Comments Refill Request 03/24/2023 Reason Onset Date Comments Refill Request 03/30/2023 Reason Onset Date Comments Refill Request 06/22/2023 Reason Onset Date Comments Refill Request 12/30/2023 Reason Comments Medicare Wellness Exam 4 month follow-up Reason Comments Consult Screening for colon cancer Specialty Diagnoses / Procedures Referred By Contac t Referred To Contact General Surgery Diagnoses Benign neoplasm of colon, unspecified part of colon Procedures CONSULT TO GENERAL SURGERY OFFICE/OUTPATIENT [facility] 60 MINUTES Matheus Fajardo MD [address] [place] [address] Referral ID Status Reason Start Date Expiration Date V isits Requested Visits Authorized [id number] Closed PCP Requested Referral 02/18/2024 02/17/2025 1 1 Reason Onset Date Comments Refill Request 04/11/2024 Reason Comments Eval for Possible Dementia Neuropathy Specialty Diagnoses / Procedures Referred By Contac t Referred To Contact Neurology Diagnoses Tremor, essential Gait abnormality Cognitive decline Procedures CONSULT TO NEUROLOGY OFFICE/OUTPATIENT [facility] 60 MINUTES Matheus Fajardo MD [address] [place] [address] Referral ID Status Reason Start Date Expiration Date V isits Requested Visits Authorized [id number] Closed PCP Requested Referral 10/15/2023 10/14/2024 1 1 Reason Comments Results Reason Comments [facility] ReferralAtherosclerosis of [place] coronary artery of [place] heart without angina pectoris Specialty Diagnoses / Procedures Referred By Contac t Referred To Contact Cardiology Diagnoses Atherosclerosis of [place] coronary artery of [place] heart without angina pectoris Procedures CONSULT TO CARDIOLOGY OFFICE/OUTPATIENT [facility] 60 MINUTES Matheus Fajardo MD [address] [place] [address] Referral ID Status Reason Start Date Expiration Date V isits Requested Visits Authorized [id number] Closed PCP Requested Referral 02/18/2024 02/17/2025 1 1 Reason Onset Date Comments Refill Request 07/20/2024 Reason Onset Date Comments Refill Request 08/02/2024 Reason Comments F/U 6 months Reason Comments Follow Up Reason Comments PT Eval Patient Education Specialty Diagnoses / Procedures Referred By Candice t Referred To Contact [facility] Diagnoses 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 behavioral disturbance, psychotic disturbance, mood disturbance, or anxiety, unspecified dementia type (HCC) 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 (HCC) Gait abnormality Procedures CONSULT TO PHYSICAL THERAPY PHYSICAL THERAPY EVALUATION HIGH COMPLEX 45 MINS Matheus Fajardo MD [address] [place] [address] [facility] [address] [place] [address] Referral ID Status Reason Start Date Expiration Date Visits Requested Visits Authorized [id number] Authorized Auto-Generat ed Referral 09/28/2023 09/27/2024 99 99 Reason Onset Date Comments Refill Request 09/19/2024 Reason Onset Date Comments Refill Request 10/31/2024 Reason Comments Transition Of Care Reason Comments Chest Congestion cough x 1 month Reason Comments Medicare Wellness Exam F/U 6 months Reason Comments Follow Up Reason Comments Hand Injury right hand, bilatera l knee pain after fall x 1 hour Reason Onset Date Comments Refill Request 04/18/2025 Reason Onset Date Comments requesting medication that is 05/23/2025 Care Teams (unrecognized sec tion and content) Editing Intern Relationship Specialty Start Date End Date Matheus Fajardo MD [address] [place], [place] [id number] PCP - General 04/24/05 Editing Intern Relationship Specialty Start Date End Date Matheus Fajardo MD [address] [place], [place] [address] PCP - General 04/24/05 Editing Intern Relationship Specialty Start Date End Date Matheus Fajardo MD [address] [place], [place] [id number] PCP - General 04/24/05 Editing Intern Relationship Specialty Start Date End Date Matheus Fajardo MD [address] [place], [place] [id number] PCP - General 04/24/05 Editing Intern Relationship Specialty Start Date End Date Matheus Fajardo MD [address] [place] [address] PCP - General 04/24/05 Editing Intern Relationship Specialty Start Date End Date Matheus Fajardo MD [address] [facility] [address] PCP - General 04/24/05 Editing Intern Relationship Specialty Start Date End Date Matheus Fajardo MD [address] [facility] [address] PCP - General 04/24/05 Editing Intern Relationship Specialty Start Date End Date Matheus Fajardo MD [address] [facility] [address] PCP - General 04/24/05 Editing Intern Relationship Specialty Start Date End Date Matheus Fajardo MD [address] [place] [address] PCP - General 04/24/05 Editing Intern Relationship Specialty Start Date End Date Matheus Fajardo MD [address] [place] [address] PCP - General 04/24/05 Editing Intern Relationship Specialty Start Date End Date Matheus Fajardo MD [address] [place] [address] PCP - General 04/24/05 Editing Intern Relationship Specialty Start Date End Date Matheus Fajardo MD [address] [place] [address] PCP - General 04/24/05 Editing Intern Relationship Specialty Start Date End Date Matheus Fajardo MD [address] [facility] [address] PCP - General 04/24/05 Editing Intern Relationship Specialty Start Date End Date Matheus Fajardo MD [address] [place] [address] PCP - General 04/24/05 Editing Intern Relationship Specialty Start Date End Date Matheus Fajardo MD [address] [place] [address] PCP - General 04/24/05 Editing Intern Relationship Specialty Start Date End Date aMtheus Fajardo MD [address] [place] [address] PCP - General 04/24/05 Editing Intern Relationship Specialty Start Date End Date Matheus Fajardo MD [address] [place] [address] PCP - General 04/24/05 Editing Intern Relationship Specialty Start Date End Date Matheus Fajardo MD [address] [place] [address] PCP - General 04/24/05 Editing Intern Relationship Specialty Start Date End Date Matheus Fajardo MD [address] [place] [address] PCP - General 04/24/05 Editing Intern Relationship Specialty Start Date End Date Matheus Fajardo MD [address] [place] [address] PCP - General 04/24/05 Editing Intern Relationship Specialty Start Date End Date Matheus Fajardo MD [address] [place] [address] PCP - General 04/24/05 Editing Intern Relationship Specialty Start Date End Date Matheus Fajardo MD [address] [place] [address] PCP - General 04/24/05 Editing Intern Relationship Specialty Start Date End Date Matheus Fajardo MD [address] [place] [address] PCP - General 04/24/05 Editing Intern Relationship Specialty Start Date End Date Matheus Fajardo MD [address] [place] [address] PCP - General 04/24/05 Editing Intern Relationship Specialty Start Date End Date Matheus Fajardo MD [address] [place] [address] PCP - General 04/24/05 Editing Intern Relationship Specialty Start Date End Date Matheus Fajardo MD [address] [place] [address] PCP - General 04/24/05 Editing Intern Relationship Specialty Start Date End Date Matheus Fajardo MD [address] [place] [address] PCP - General 04/24/05 Editing Intern Relationship Specialty Start Date End Date Matheus Fajardo MD [address] [place] [address] PCP - General 04/24/05 Editing Intern Relationship Specialty Start Date End Date Matheus Fajardo MD [address] [place] [address] PCP - General 04/24/05 Editing Intern Relationship Specialty Start Date End Date Matheus Fajardo MD [address] [facility] [address] PCP - General 04/24/05 Cookie Sewell, CONTACT WORKER LITHOGRAPHY.OUTSIDE SALES ACCOUNT REPRESENTATIVE [address] [place] [address] Telegraphic Typewriter Operator Internal Medicine 09/05/24 Editing Intern Relationship Specialty Start Date End Date Matheus Fajardo MD [address] [place] [address] PCP - General 04/24/05 Cookie Sewell, CONTACT WORKER LITHOGRAPHY.OUTSIDE SALES ACCOUNT REPRESENTATIVE [address] [place] [address] [facility] Internal Medicine 09/05/24 Editing Intern Relationship Specialty Start Date End Date Matheus Fajardo MD [address] [place] [address] PCP - General 04/24/05 Cookie Sewell, CONTACT WORKER LITHOGRAPHY.OUTSIDE SALES ACCOUNT REPRESENTATIVE [address] [place] [address] [facility] Internal [facility] 09/05/24 Editing Intern Relationship Specialty Start Date End Date Matheus Fajardo MD [address] [place] [address] PCP - General 04/24/05 Cookie Sewell, CONTACT WORKER LITHOGRAPHY.OUTSIDE SALES ACCOUNT REPRESENTATIVE [address] [place] [address] [facility] Internal Medicine 09/05/24 Editing Intern Relationship Specialty Start Date End Date Matheus Fajardo MD [address] [place] [address] PCP - General 04/24/05 Cookie Sewell, CONTACT WORKER LITHOGRAPHY.OUTSIDE SALES ACCOUNT REPRESENTATIVE [address] [place] [address] [facility] Internal Medicine 09/05/24 Editing Intern Relationship Specialty Start Date End Date Matheus Fajardo MD [address] [place] [address] PCP - General 04/24/05 Cookie Sewell, CONTACT WORKER LITHOGRAPHY.OUTSIDE SALES ACCOUNT REPRESENTATIVE [address] [place] [address] [facility] Internal Medicine 09/05/24 Editing Intern Relationship Specialty Start Date End Date Matheus Fajardo MD [address] [place] [address] PCP - General 04/24/05 Cookie Sewell, CONTACT WORKER LITHOGRAPHY.OUTSIDE SALES ACCOUNT REPRESENTATIVE [address] [place] [address] [facility] Internal Medicine 09/05/24 Editing Intern Relationship Specialty Start Date End Date Matheus Fajardo MD [address] [place] [address] PCP - General 04/24/05 Cookie Sewell, CONTACT WORKER LITHOGRAPHY.OUTSIDE SALES ACCOUNT REPRESENTATIVE [address] [place] [address] [facility] Internal Medicine 09/05/24 Editing Intern Relationship Specialty Start Date End Date Matheus Fajardo MD [address] [place], [place] [address] PCP - General 04/24/05 Cookie Sewell, CONTACT WORKER LITHOGRAPHY.OUTSIDE SALES ACCOUNT REPRESENTATIVE [address] [place], [place] [address] [facility] Internal Medicine 09/05/24 Editing Intern Relationship Specialty Start Date End Date Matheus Fajardo MD [address] [place], [place] [id number] PCP - General 04/24/05 Cookie Sewell, CONTACT WORKER LITHOGRAPHY.OUTSIDE SALES ACCOUNT REPRESENTATIVE [address] [place], [place] [id number] [facility] Internal [facility] 09/05/24 Team Status: Active Member Role Status Dates Dr. Matheus aFjardo MD Primary Care Provider Active Team Status: Inactive Member Role Status Dates Dr. Matheus Fajardo MD Primary Care Provider Active Start: December 02, 2024 End: December 02, 2024 Dr. Matheus Fajardo MD Referring Provider Active Start: December 02, 2024 End: December 02, 2024 BOB Lee Attending Provider Active Star t: December 02, 2024 End: December 02, 2024 Team Status: Inactive Member Role Status Dates Dr. Matheus Fajardo MD Primary Care Provider Active Start: March 21, 2025 End: March 21, 2025 Dr. Matheus Fajardo MD Referring Provider Active Start: March 21, 2025 End: March 21, 2025 RABIA Thrasher Attending Provider Active S tart: March 21, 2025 End: March 21, 2025 Editing Intern Relationship Specialty Start Date End Date Matheus Fajardo MD [address] [place], [place] [id number] PCP - General 04/24/05 Cookie Sewell, CONTACT WORKER LITHOGRAPHY.OUTSIDE SALES ACCOUNT REPRESENTATIVE [address] [place], [place] [address] Telegraphic Typewriter Operator Internal Medicine 09/05/24 Editing Intern Relationship Specialty Start Date End Date Matheus Fajardo MD [address] [place] [address] PCP - General 04/24/05 Cookie Sewell, CONTACT WORKER LITHOGRAPHY.OUTSIDE SALES ACCOUNT REPRESENTATIVE [address] [place] [address] Telegraphic Typewriter Operator Internal Medicine 09/05/24 Editing Intern Relationship Specialty Start Date End Date Matheus Fajardo MD [address] [place] [address] PCP - General 04/24/05 Cookie Sewell, CONTACT WORKER LITHOGRAPHY.OUTSIDE SALES ACCOUNT REPRESENTATIVE [address] [place] [address] Telegraphic Typewriter Operator Internal Medicine 09/05/24 Editing Intern Relationship Specialty Start Date End Date Matheus Fajardo MD [address] [place] [address] PCP - General 04/24/05 Cookie Sewell, CONTACT WORKER LITHOGRAPHY.OUTSIDE SALES ACCOUNT REPRESENTATIVE [address] [place], [place] [address] [phone] [facility] Internal Medicine 09/05/24 Goals (unrecognized section and content) Goals may be documented in a n alternate sectionGoals may be documented in an alternate section FOR RECORDS PERTAINING TO PATIENTS WHO ARE OR HAVE BEEN ENROLLED IN A CHEMICAL DEPENDENCY/SUBSTANCEABUSE PROGRAM, SOME INFORMATION MAY BE OMITTED. This clinical summary was aggregated from multiple sources. Caution should be exercised in using it in the provision of clinical care. This summary normalizes information from multiple sources, and as a consequence, information in this document may materially change the coding, format and clinical context of patient data. In addition, data may be omitted in some cases. CLINICAL DECISIONS SHOULD BE BASED ON THE PRIMARY CLINICAL RECORDS. [facility]. provides no warranty or guarantee of the accuracy or completeness of information in this document.
--- NOTE | 2025-09-03 14:22 | ED.RN ---
FIRST CALL TO [facility] AT [phone]
--- NOTE | 2025-09-03 14:24 | ED.RN ---
SECOND CALL MADE TO [facility] THAT PT. IS IN ROOM W/ ROBOT.
[2025-09-03 14:30] LABS: Hematocrit 47.2 % (37-47); Hemoglobin 15.2 g/dL (12.0-15.0); Immature Granulocytes Count 0.080 X10^3/uL (0.0-0.0); Mean Corp Hgb Conc 32.2 g/dL (32-36); Mean Corpuscular Volume 88.2 fL (81-99); Mean Platelet Vol. 10.7 fl (6.2-12.0); NRBC Flagged by Analyzer 0 % (0-5); Platelet Count 200 K/mm3 (150-450); RBC Distribution Width CV 13.6 % (11.6-14.6); RBC Distribution Width SD 43.9 fl (35.1-43.9); Red Blood Count 5.35 M/mm3 (4.2-5.4); White Blood Count 12.9 K/mm3 (4.4-11.0)
[2025-09-03 14:39] LABS: Prothrombin Time (Protime)PT. 13.4 SECONDS (11.7-14.9)
[2025-09-03 14:40] LABS: Partial Thromboplast Time 33.8 Seconds (24.1-36.2)
--- NOTE | 2025-09-03 14:45 | ED.VIS.STROK ---
HPI History of Present Illness Chief Complaint: Stroke Alert Informant: patient, spouse/S.O. and EMS Narrative Narrative: Patient is an 85-year-old female with a history of Alzheimer's dementia presenting to the ED with right leg weakness. - Last known well at 0100 when she went to bed. - Awakened this morning by her , who noticed she was dragging her right leg and unable to lift it. - Denies any pain in the leg. Denies headache, chest pain, or dyspnea. - EMS reports that while sitting on the toilet earlier, she was observed by her to be staring off into space, but no other major events were noted. - Takes baby aspirin daily; no anticoagulants, confirmed by EMS. More history obtained when the arrived. He states she does have Alzheimer's, however she is usually fairly sharp and can carry on a reasonable conversation on a normal day. She is far from her baseline today, more confused. No falls. No recent symptoms of an illness. Usually incontinent of urine. Confirm medication list except for she has been taken off of her donepezil. [facility] Medical History Alzheimer's dementia Abdominal aortic aneurysm without rupture Tobacco abuse Aortic valve sclerosis Old myocardial infarction JL on CPAP PVD (peripheral vascular disease) Presence of stent in coronary artery (~12/18/03) Stenosis of infrarenal abdominal aorta due to atherosclerosis (~03/11/04) Diabetic peripheral neuropathy associated with type 2 diabetes mellitus Type 2 diabetes mellitus DDD (degenerative disc disease) Bilateral carotid artery disease GERD (gastroesophageal reflux disease) Essential hypertension Mixed hyperlipidemia Atherosclerotic heart disease of [place] coronary artery without angina pectoris Home Medications ?Medication ?Instructions ?Recorded ?Last Taken ?Type aspirin 81 mg chewable tablet 81 mg PO DAILY@0800 preventative 07/06/14 09/02/25 History atorvastatin 80 mg tablet 80 mg PO QHS cholesterol 09/02/19 09/02/25 History gabapentin 300 mg capsule 300 mg PO TID neuropathy 09/18/22 09/02/25 History mirabegron 50 mg tablet,extended 50 mg PO DAILY bladder 11/10/24 09/02/25 History release 24 hr paroxetine HCl 10 mg tablet 10 mg PO DAILY mood 11/10/24 09/02/25 History triamcinolone acetonide 55 mcg 2 spray intranasal DAILY PRN 11/10/24 09/02/25 History nasal spray aerosol (24 Hour Nasal congestion Allergy) atenolol 25 mg tablet 25 mg PO QODAY heart 03/21/25 09/02/25 History cholecalciferol (vitamin D3) 25 50 mcg PO QDAY vitamin 03/21/25 09/02/25 History mcg (1,000 unit) capsule donepezil 5 mg tablet 5 mg PO QDAY 03/21/25 08/31/25 History levetiracetam 500 mg tablet 500 mg PO BID 03/21/25 09/02/25 History mecobalamin (vitamin B12) 1,000 1,000 mcg PO DAILY 08/31/25 09/02/25 History mcg chewable tablet nitroglycerin 0.4 mg sublingual 0.4 mg sublingual Q5-15M PRN chest 08/31/25 Unknown History tablet pain trospium 20 mg tablet 20 mg PO Q24H 09/03/25 09/02/25 History Allergy/AdvReac Type Severity Reaction Status Date / Time hydrocodone Allergy Rash Verified 09/03/25 14:21 Penicillins (PCN) Allergy Other Verified 09/03/25 14:21 Sulfa (Sulfonamide Allergy Unknown Verified 09/03/25 14:21 Antibiotics) amoxicillin (From Augmentin) AdvReac Mild itching Verified 09/03/25 14:21 clavulanic acid (From AdvReac Mild itching Verified 09/03/25 14:21 Augmentin) acetaminophen (From Vicodin) AdvReac Other Verified 09/03/25 14:21 hydrocodone bitartrate (From AdvReac Other Verified 09/03/25 14:21 Vicodin) lovastatin (From Mevacor) AdvReac Other Verified 09/03/25 14:21 rosuvastatin calcium (From AdvReac Other Verified 09/03/25 14:21 Crestor) simvastatin (From Zocor) AdvReac Other Verified 09/03/25 14:21 Family History Father Myocardial infarction Heart disease CVA (cerebral vascular accident) Diabetes Brother CAD (coronary artery disease) Mother , 70's - colostomy burst with infection No problems noted. Surgical History History of left breast biopsy Cataract extraction status of left eye History of surgery on wrist History of cystoscopy Presence of coronary angioplasty implant and graft (~12/18/03) Social History current occupational status: retired pets and animals: No Smoking Status: Light Smoker (<10/day) alcohol intake: never substance use type: does not use caffeine: Yes Type: carbonated beverages Number of servings: 3 and tea Number of servings: 3 do you feel safe at home: Yes ROS ROS ED Review of Systems ROS Unobtainable: due to mental status Eyes Eyes: Denies change in vision ENT ENT ED: Denies ear pain or sore throat Cardiovascular Cardiovascular: Denies chest pain Respiratory/Chest Respiratory/Chest: Denies cough or dyspnea Gastrointestinal Gastrointestinal: Denies abdominal pain or nausea Musculoskeletal Musculoskeletal: Denies back pain or neck pain Neurologic Neurologic: Reports confusion; Denies headache(s), paresthesias or seizures EXAM Physical Exam Const Vital Signs: 09/03/25 14:08 09/03/25 14:08 09/03/25 14:08 Temperature 97.5 F L 97.5 F L Temperature Source Temporal Temporal Pulse Rate 70 70 Respiratory Rate 14 14 Blood Pressure 144/82 H 144/82 H Blood Pressure Mean 102 102 Pulse Ox 95 95 Oxygen Delivery Method Room Air Room Air Room Air 09/03/25 14:08 09/03/25 14:38 09/03/25 15:08 Temperature 98.0 F Temperature Source Oral Pulse Rate 88 88 83 Respiratory Rate 22 H 27 H 19 H Blood Pressure 147/73 H 139/70 H 110/83 H Blood Pressure Mean 97 93 92 Pulse Ox 95 95 95 Oxygen Delivery Method Room Air Room Air Room Air Positive well nourished and well developed General Appearance ED: well developed and NAD HEENT Reports moist mucous membranes normocephalic and atraumatic Eyes PERRL and EOMs intact bilaterally Neck full ROM and supple Resp normal respiratory effort and clear to auscultation bilaterally Cardio regular rate and regular rhythm Heart Sounds: murmur systolic III/ crescendo-decrescendo left sternal border Peripheral Pulses: pulses 2+ throughout GI non-tender and non-distended Auscultation: normoactive bowel sounds Palpation: soft Back/Spine no CVA tenderness General Back: other FROM Extremity normal to inspection General Extremety ED: Negative for edema, pulses abnormal or tenderness General Extremity: Negative for edema or pulses abnormal Neuro oriented x3, CN's II-XII intact bilaterally and no sensory deficits noted Neuro Narrative: Drift with both legs but resist gravity well and symmetrically. No other focal sensory or motor deficits. Some confusion but no dysarthria or aphasia. Oriented to age and not to month. [place] Coma Scale: document GCS findings Spontaneous Obeys Commands Confused 14 Sensorium / Orientation: awake, alert, oriented to person, oriented to place, orientation impaired and confused Psych Psych Narrative: Flat affect Skin no rashes or lesions noted and no wounds MDM MDM MDM Narrative Medical decision making narrative: Assessment: The patient is an 85-year-old female with PMH of Alzheimer?s dementia presenting for acute right-leg weakness noted on awakening and new encephalopathy. Last known well 01:00. Initial NIHSS 2 for leg drift only; focal motor deficit resolved by the time of detailed exam. Non-contrast head CT shows no acute hemorrhage, and CTA shows no large-vessel occlusion. EKG is normal sinus rhythm; troponin and urinalysis are unremarkable. Given symptom resolution and negative imaging, a transient ischemic attack is most likely; not a candidate for IV thrombolysis due to elapsed time and no target for endovascular therapy. Plan: - Admit to PCU under hospitalist service for stroke work-up and monitoring - Discussed non-eligibility for thrombolytics/endovascular therapy based on presentation time and imaging Diagnostics: - Non-contrast head CT: no acute hemorrhage - CTA head/neck: no large-vessel occlusion - EKG: normal sinus rhythm; independently interpreted by Rafael dumont - Labs: troponin normal - Urinalysis normal Consultations: - Hospitalist ? accepted admission to PCU for further evaluation Reevaluations: - After imaging: right-leg strength symmetric; NIHSS 3 for drift only in BLE and some disorientation; patient remains encephalopathic per spouse Portions of this note were generated using voice recognition software ([employer]). I have reviewed the contents and every effort has been made to ensure accuracy; however, inadvertent errors in grammar, spelling, punctuation, or word choice may occur, that were not noted before signing the document and should not alter the intended clinical meaning. History & Record Review Discussion w/independent historian: EMS personnel, Patient and Family Additional record(s) reviewed:: Prior labs (and echo) Lab Data Attestation: I reviewed the patient's lab results. Labs: Laboratory Results - last 24 hr 09/03/25 09/03/25 14:21 15:20 WBC 12.9 H RBC 5.35 Hgb 15.2 H Hct 47.2 H MCV 88.2 MCH 28.4 MCHC 32.2 RDW Std Deviation 43.9 RDW Coeff of Joslyn 13.6 Plt Count 200 MPV 10.7 Immature Gran % (Auto) 0.600 Neut % (Auto) 84.5 H Lymph % (Auto) 9.1 L [place] % (Auto) 5.1 Eos % (Auto) 0.5 Baso % (Auto) 0.2 Absolute Neuts (auto) 10.9 H Absolute Lymphs (auto) 1.17 Nucleated RBC % 0 PT 13.4 INR 1.0 APTT 33.8 Sodium 139 Potassium 4.1 Chloride 103 Carbon Dioxide 24.5 Anion Gap 11 BUN 15 Creatinine 1.03 Estim Creat Clear Calc 38.13 L Est GFR (MDRD) Non-Af 53 L BUN/Creatinine Ratio 14.2 Glucose 154 H Calcium 9.0 Troponin T High Sens 13 Urine Color Yellow Urine Clarity Clear Urine pH 6.0 Ur Specific [place] 1.015 Urine Protein 15 H Urine Glucose (UA) Normal Urine Ketones Negative Urine Occult Blood 10 H Urine Nitrite Negative Urine Bilirubin Negative Urine Urobilinogen Normal Ur Leukocyte Esterase Negative Urine RBC 0 SEEN Urine WBC 0 SEEN Ur Squamous Epith Cells 5-10 SEEN Urine Bacteria 0 SEEN Urine Mucus 0 SEEN Radiography Diagnostic Testing: Clinical Impression(s) from Imaging Studies Brain CT 09/03/25 14:08 IMPRESSION: 1. No acute intracranial abnormality. 2. Age-related senescent changes. Reading Location: [id number] Head/Neck CTA 09/03/25 14:09 IMPRESSION: 1. No arterial occlusion, dissection or aneurysm in the head or neck. 2. Moderate stable bilateral proximal ICA stenosis due to calcified plaque (Right 50%, Left 60%). 3. New significant distal left vertebral artery stenosis (55-60%) in a hypoplastic vessel with preserved flow distally. 4. Stable 1.4 cm left lateral frontal region dural-based mass, likely a meningioma. Reading Location: [facility] Rhythm Strip Rhythm Strip: Sinus Rhythm Rate: 85 Ectopy: None EKG Initial EKG: Attestation: I personally reviewed and interpreted this EKG as follows: Interpretation: Sinus Rhythm and No Acute Injury Pattern Comments: Nml axis & intervals; nml EKG Management Discussion w/another healthcare provider: Hospitalist, Philosophy Instructor (stroke neuro dr. crump) and Radiologist Discharge Plan Dx/Rx/DC Orders Clinical Impression: Brain TIA, Acute encephalopathy, Alzheimer dementia Disposition Disposition: Acute Care Hospital [facility] NIHSS NIHSS 1a. Level of Consciousness: 0 - Alert; keenly responsive 1b. LOC Questions: 1 - Answers ONE question correctly 1c. LOC Commands: 0 - Performs BOTH tasks correctly 2. Best Gaze: 0 - Normal 3. Visual: 0 - No visual loss 4. Facial Palsy: 0 - Normal symmetrical movements 5a. Left Arm: 0 - No drift; arm holds 90 (or 45) degrees for full 10 seconds 5b. Right Arm: 0 - No drift; arm holds 90 (or 45) degrees for full 10 seconds 6a. Left Le - Drift; leg falls by the end of 5-seconds, but does not hit bed 6b. Right Le - Drift; leg falls by the end of 5-seconds, but does not hit bed 7. Limb Ataxia: 0 - Absent 8. Sensory: 0 - Normal; no sensory loss 9. Best Language: 0 - No aphasia; normal 10. Dysarthria: 0 - Normal 11. Extinction and Inattention: 0 - No abnormality Total: 3 Stroke Questions Stroke Team Activated: Yes (Prehospital) IV Thrombolytic Administered: No (Due to timing)
[2025-09-03 14:49] LABS: Anion Gap 11 (5-15); BUN 15 mg/dL (4-19); BUN/Creat Ratio 14.2 RATIO (10-20); Calcium,Total 9.0 mg/dL (7.6-11.0); Carbon Dioxide 24.5 mmol/L (21.0-32.0); Chloride 103 mmol/L (98-108); Estimated Creatinine Clearance 38.13 ml/min (50-250); Glucose 154 mg/dL (70-99); Potassium 4.1 mmol/L (3.3-5.1); Troponin T High Sensitivity 13 ng/L (<=14)
[2025-09-03 15:26] LABS: Mucous, Urine 0 SEEN /hpf (<or=2+); Red Blood Cells-Urine 0 SEEN /hpf (0-5)
[2025-09-03 15:28] LABS: Color, Urine Yellow (Yellow); Glucose, Dipstick Normal (Normal); Ketone-Dipstick Negative (Negative); Leukocyte Esterase-Dipstick Negative /ul (Negative); Nitrite-Dipstick Negative (Negative); Occult Blood-Urine 10 /ul (Negative); Protein-Dipstick 15 mg/dl (Negative); Specific Gravity, Urine 1.015 (1.002-1.030); Urine Bilirubin Dipstick Negative (Negative)
[2025-09-03 15:38] LABS: Squamous Epithelial Cells - UA 5-10 SEEN /hpf (5-10)
--- NOTE | 2025-09-03 16:16 | RAD_ITS ---
PROCEDURE: CHEST 1 VIEW (PORTABLE) 09/03/2025 REASON FOR EXAM: COUGH, ALTERED MENTAL STATUS TECHNIQUE: Frontal view of the chest. COMPARISON: 11/20/2024 chest x-ray FINDINGS: Hardware: Overlying EKG wires and leads. Heart: The heart size is normal. Lungs: The lungs are clear. Focal airspace opacity noted in the right lung base. Bones: The bones are unremarkable. RAD/Chest 1 View (Portable) IMPRESSION: Focal airspace opacity noted in the right lung base. Recommend correlation wit h pneumonia. Reading Location: [facility]
--- NOTE | 2025-09-03 16:31 | PCM.HP.STD ---
HPI - General General Date of Admission: 09/03/25 Date of Service: 09/03/25 Chief Complaint: Right leg weakness, increased confusion HPI Narrative MATTIE FOX, is a 85 F who presents to the emergency room at [facility] after being brought in by her with complaints of increased right leg weakness and increased confusion over baseline. Patient's last well time was 1 AM this morning, noticed the symptoms at approximately 10 AM this morning when patient woke. Patient has a past history of TIA, she also has a history of Alzheimer's dementia. Stroke team was activated in the emergency room, patient underwent a CTA of the head and neck as well as a CT of the brain, these did not show any acute process or acute occlusive disease. There was noted to be a stable 1.4 cm extradural based mass in the left lateral frontal region, it was noted that the patient had a history of meningioma in the past. Patient's NIH stroke score was 1, it was not recommended that the patient received TNK. Further workup included a CBC which showed a white blood cell count of 12.9 and a hemoglobin of 15.2 but was otherwise unremarkable, patient's chemistry profile was remarkable for a glucose of 154, patient's UA was unremarkable. According to the emergency room physician, chest x-ray showed a right lower lobe infiltrate worrisome for pneumonia. Patient was given IV Zithromax and Rocephin for coverage. Patient will be placed in observation status on PCU, IV antibiotics will be continued, she will be seen by PT OT and speech therapy, she will also be seen by teleneurology. [facility] Medical History Alzheimer's dementia Abdominal aortic aneurysm without rupture Tobacco abuse Aortic valve sclerosis Old myocardial infarction JL on CPAP PVD (peripheral vascular disease) Presence of stent in coronary artery (~12/18/03) Stenosis of infrarenal abdominal aorta due to atherosclerosis (~03/11/04) Diabetic peripheral neuropathy associated with type 2 diabetes mellitus Type 2 diabetes mellitus DDD (degenerative disc disease) Bilateral carotid artery disease GERD (gastroesophageal reflux disease) Essential hypertension Mixed hyperlipidemia Atherosclerotic heart disease of [place] coronary artery without angina pectoris Home Medications ?Medication ?Instructions ?Recorded ?Last Taken ?Type aspirin 81 mg chewable tablet 81 mg PO DAILY@0800 preventative 07/06/14 09/02/25 History atorvastatin 80 mg tablet 80 mg PO QHS cholesterol 09/02/19 09/02/25 History gabapentin 300 mg capsule 300 mg PO TID neuropathy 09/18/22 09/02/25 History mirabegron 50 mg tablet,extended 50 mg PO DAILY bladder 11/10/24 09/02/25 History release 24 hr paroxetine HCl 10 mg tablet 10 mg PO DAILY mood 11/10/24 09/02/25 History triamcinolone acetonide 55 mcg 2 spray intranasal DAILY PRN 11/10/24 09/02/25 History nasal spray aerosol (24 Hour Nasal congestion Allergy) atenolol 25 mg tablet 25 mg PO QODAY heart 03/21/25 09/02/25 History cholecalciferol (vitamin D3) 25 50 mcg PO QDAY vitamin 03/21/25 09/02/25 History mcg (1,000 unit) capsule donepezil 5 mg tablet 5 mg PO QDAY 03/21/25 08/31/25 History levetiracetam 500 mg tablet 500 mg PO BID 03/21/25 09/02/25 History mecobalamin (vitamin B12) 1,000 1,000 mcg PO DAILY 08/31/25 09/02/25 History mcg chewable tablet nitroglycerin 0.4 mg sublingual 0.4 mg sublingual Q5-15M PRN chest 08/31/25 Unknown History tablet pain trospium 20 mg tablet 20 mg PO Q24H 09/03/25 09/02/25 History Allergy/AdvReac Type Severity Reaction Status Date / Time hydrocodone Allergy Rash Verified 09/03/25 14:21 Penicillins (PCN) Allergy Other Verified 09/03/25 14:21 Sulfa (Sulfonamide Allergy Unknown Verified 09/03/25 14:21 Antibiotics) amoxicillin (From Augmentin) AdvReac Mild itching Verified 09/03/25 14:21 clavulanic acid (From AdvReac Mild itching Verified 09/03/25 14:21 Augmentin) acetaminophen (From Vicodin) AdvReac Other Verified 09/03/25 14:21 hydrocodone bitartrate (From AdvReac Other Verified 09/03/25 14:21 Vicodin) lovastatin (From Mevacor) AdvReac Other Verified 09/03/25 14:21 rosuvastatin calcium (From AdvReac Other Verified 09/03/25 14:21 Crestor) simvastatin (From Zocor) AdvReac Other Verified 09/03/25 14:21 Family History Father Myocardial infarction Heart disease CVA (cerebral vascular accident) Diabetes Brother CAD (coronary artery disease) Mother , 70's - colostomy burst with infection No problems noted. Surgical History History of left breast biopsy Cataract extraction status of left eye History of surgery on wrist History of cystoscopy Presence of coronary angioplasty implant and graft (~12/18/03) Social History current occupational status: retired pets and animals: No Smoking Status: Light Smoker (<10/day) alcohol intake: never substance use type: does not use caffeine: Yes Type: carbonated beverages Number of servings: 3 and tea Number of servings: 3 do you feel safe at home: Yes ROS ROS Narrative Review of systems was unobtainable secondary to the patient's history of dementia, she is alert and answers simple questions appropriately but she is not oriented as to time and is an overall poor informant Vital Signs Vital Signs Vital Signs: 09/03/25 14:08 09/03/25 14:08 09/03/25 14:08 Temperature 97.5 F L 97.5 F L Temperature Source Temporal Temporal Pulse Rate 70 70 Respiratory Rate 14 14 Blood Pressure 144/82 H 144/82 H Blood Pressure Mean 102 102 Pulse Ox 95 95 Oxygen Delivery Method Room Air Room Air Room Air 09/03/25 14:08 09/03/25 14:38 09/03/25 15:08 Temperature 98.0 F Temperature Source Oral Pulse Rate 88 88 83 Respiratory Rate 22 H 27 H 19 H Blood Pressure 147/73 H 139/70 H 110/83 H Blood Pressure Mean 97 93 92 Pulse Ox 95 95 95 Oxygen Delivery Method Room Air Room Air Room Air 09/03/25 15:30 Temperature Temperature Source Pulse Rate 83 Respiratory Rate 19 H Blood Pressure 153/82 H Blood Pressure Mean 105 Pulse Ox 97 Oxygen Delivery Method Room Air Weight Weight: 72.5 kg Body Mass Index (BMI) 25.0 Physical Exam Const alert and no apparent distress Constitutional Narrative: Patient appears her stated age General Appearance: cooperative, well kempt and well developed Orientation / Consciousness: awake, oriented to person, oriented to place and confused HEENT normocephalic, head/scalp atraumatic and moist oral mucous membranes Eyes PERRL, EOMs intact bilaterally and conjunctivae normal Neck supple, no JVD, thyroid normal and no carotid bruits General: trachea midline Resp normal respiratory effort, no retractions, no use of accessory muscles and clear to auscultation bilaterally Auscultation: Negative for rales, rhonchi or wheezes Cardio regular rate, regular rhythm, S1 normal heart sound, S2 normal heart sound, no rub and no gallops Cardio Narrative: 2/6 systolic murmur is noted to the right sternal border left sternal border and apex. GI normal to inspection, nondistended, normoactive bowel sounds, soft to palpation, non-tender and non-distended Extremity no clubbing, cyanosis or edema Skin no rashes or lesions noted General Skin Exam: no breakdown Neuro CN's II-XII intact bilaterally, moves all extremities, no focal motor deficits and no sensory deficits noted Sensorium / Orientation: awake, alert, oriented to person and oriented to place Speech: speech normal Psych Psych Narrative: Patient is confused, she is not agitated or depressed Results Lab / Micro Data 09/03/25 14:21 09/03/25 14:21 Labs: Laboratory Results - last 24 hr 09/03/25 14:21: WBC 12.9 H, RBC 5.35, Hgb 15.2 H, Hct 47.2 H, MCV 88.2, MCH 28.4, MCHC 32.2, RDW Std Deviation 43.9, RDW Coeff of [place] 13.6, Plt Count 200, MPV 10.7, Immature Gran % (Auto) 0.600, Neut % (Auto) 84.5 H, Lymph % (Auto) 9.1 L, [place] % (Auto) 5.1, Eos % (Auto) 0.5, Baso % (Auto) 0.2, Absolute Neuts (auto) 10.9 H, Absolute Lymphs (auto) 1.17, Nucleated RBC % 0, PT 13.4, INR 1.0, APTT 33.8, Sodium 139, Potassium 4.1, Chloride 103, Carbon Dioxide 24.5, Anion Gap 11, BUN 15, Creatinine 1.03, Estim Creat Clear Calc 38.13 L, Est GFR (MDRD) Non-Af 53 L, BUN/Creatinine Ratio 14.2, Glucose 154 H, Calcium 9.0, Troponin T High Sens 13 09/03/25 15:20: Urine Color Yellow, Urine Clarity Clear, Urine pH 6.0, Ur Specific [place] 1.015, Urine Protein 15 H, Urine Glucose (UA) Normal, Urine Ketones Negative, Urine Occult Blood 10 H, Urine Nitrite Negative, Urine Bilirubin Negative, Urine Urobilinogen Normal, Ur Leukocyte Esterase Negative, Urine RBC 0 SEEN, Urine WBC 0 SEEN, Ur Squamous Epith Cells 5-10 SEEN, Urine Bacteria 0 SEEN, Urine Mucus 0 SEEN Rhythm Strip Rhythm Strip: Sinus Rhythm Rate: 85 Ectopy: None Imaging Radiology Impression Brain CT 09/03/25 14:08 IMPRESSION: 1. No acute intracranial abnormality. 2. Age-related senescent changes. Reading Location: [facility] Head/Neck CTA 09/03/25 14:09 IMPRESSION: 1. No arterial occlusion, dissection or aneurysm in the head or neck. 2. Moderate stable bilateral proximal ICA stenosis due to calcified plaque (Right 50%, Left 60%). 3. New significant distal left vertebral artery stenosis (55-60%) in a hypoplastic vessel with preserved flow distally. 4. Stable 1.4 cm left lateral frontal region dural-based mass, likely a meningioma. Reading Location: [facility] Assessment & Plan Assessment/Plan (1) Brain TIA: PLAN: Plan 1. TIA-patient will be placed in observation status on PCU, she will be seen by teleneurology, she will remain on aspirin and a statin, she will be seen by PT OT and speech therapy, MRI of the brain will be obtained, echocardiogram will be obtained #2 right lower lobe pneumonia-patient will continue on Zithromax and Rocephin, I will obtain urine for strep pneumo and Legionella antigens, patient has a slight nonproductive cough but this was not evident during the time my examination, according to nursing she does have a nonproductive cough. #3 Alzheimer's dementia-complicates care, management, recovery, and prognosis #4 atherosclerotic heart disease-patient is on a statin and aspirin #5 history of type 2 diabetes-patient is not on any medication for diabetes at this time, blood sugar in the emergency room was slightly elevated, I do not feel the patient needs her blood sugars monitored during her hospitalization. According to the hospital, patient is a full code Total clinical time spent by myself addressing patient's medical issues, reviewing all of her data, and collaborating with patient's care team: 75 minutes Charges/Coding Visit Charges Inpatient E&M: 28580 Init Hosp L3
--- OUTSIDE RECORDS SUMMARY | 2025-09-03 16:39 | XMS RPT_ITS | CCD ---
Author Organization [facility] Care Team Providers Care Travel Registered Nurse Nicu Name Role Phone ANDRZEJ PRATER Unavailable Unavailable MATHEUS FAJARDO Unavailable Unavailable ANDRZEJ PRATER Unavailable Unavailable Matheus Fajardo Unavailable Unavailable ANDRZEJ PRATER Unavailable Unavailable ANDRZEJ PRATER Unavailable Unavailable Mathues Fajardo MD Primary Care Provider Dr. Matheus Fajardo Primary Care Provider Dr. Matheus Fajardo Referring Provider Dr. Ruiz Rivera Attending Provider Matheus Fajardo MD Primary Care Provider Matheus Fajardo MD Primary Care Provider Matheus Fajardo MD Primary Care Provider Melodie CARRILLO.[employer], Cookie M Unavailable HYACINTH SON Attending Unavailable [...] AMINOPHEN] Drug Allergy 5 Other: See Comments [facility] Repository (20 sources) acetaminophen / oxyCODONE; Translations: [OXYCODONE-ACETAM INOPHEN] Drug Allergy 5 Other: See Comments [facility] Repository (20 sources) rosuvastatin; Translations: [ROSUVASTATIN] Drug Allergy 1 Other: See Comments [facility] Repository (20 sources) simvastatin; Translations: [SIMVASTATIN] Drug Allergy 6 Other: See Comments [facility] Repository (20 sources) Sulfonamides (Antibiotic); Translations: [SULFA (SULFONAMIDE ANTIBIOTICS)] Propensity to adverse reactions to drug (disorder) 4 Unknown [facility] Repository (20 sources) BEE STING; Translations: [BEE STING] Propensity to adverse reactions (disorder) 2 Hives, Swelling, Shortness of Breath [facility] Repository (20 sources) Amoxicillin; Translations: [AMOXICILLIN] Drug Allergy 1 Mental Status Change [facility] Comment on above: ER visit September 0; (2 sources) Acetaminophen Drug Allergy 2 Other [facility] (20 sources) Clavulanate; Translations: [CLAVULANIC ACID] Drug Allergy 1 Itching [facility] Comment on above: ER visit September 0; (2 sources) HYDROcodone Drug Allergy 2 Rash [facility] (3 sources) HYDROcodone; Translations: [hydrocodone bitartrate] Drug Allergy 2 Other [facility] (2 sources) Lovastatin Drug Allergy 2 Other [facility] (3 sources) Penicillins; Translations: [Penicillins] Allergy to substance 2 [facility] (3 sources) rosuvastatin; Translations: [rosuvastatin calcium] Drug Allergy 2 [facility] (1 source) Acetaminophen Drug Allergy 5 [facility] Repository (1 source) Amoxicillin Drug Allergy 5 [facility] Repository (1 source) Clavulanate Drug Allergy 5 [facility] Repository (1 source) HYDROcodone Drug Allergy 5 [facility] Repository (1 source) Lovastatin Drug Allergy 5 [facility] Repository Medications Current Medications Medication Drug Class(es) [...] (TENORMIN) 25 mg tablet Indications: 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 Take 1 tablet by mouth every other day. 45 tablet 3 04/18/2025 Active Start: 07-06-2014 End: 03-21-2025 take 1 tablet by mouth once daily atenolol (TENORMIN) 25 mg tablet Indications: 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 Take 1 tablet [...] 0.4 mg SL tablet Indications: 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 Dissolve 1 tablet [...] 06, 2014 12:00am September 02, 2019 12:48pm [id number] 200 actuat albuterol 0.09 mg/actuat metered dose [...] sources) Anticholinergic Start: 014 End: 019 Ipratropium [place] 1 SPRAY spray,non-aerosol Discontinued 1 NMA NASAL July 06, 2014 12:00am September 02, 2019 12:48pm Start: 07-06-2014 End: 09-02-2019 Ipratropium [place] Disconti nued 1 SPRAY NASAL July 06, [...] Start: 08-03-2023 take 1 capsule by mo [facility] once daily omeprazole (PRILOSEC) 40 mg capsule [...] disease (20 sources) Atherosclerotic heart disease of morongo coronary artery without angina pectoris; Translations: [Coronary [...] of the infrare nal aorta using a [id number] smart stent (70% luminal narrowing reduced to [...] Test Name Value Interpretation Reference Range Facility [facility] 05-23-[address] [facility] Telephone (INTMWS) MATTIE HERRON ([id number]) 1940 F Date Time Provider Department 05/23/25 [...] insufficiency o (more content not included)... Normal [facility] CNOVon 04-04-2025 CNOV Office Visit (CARDMM ) MATTIE HERRON ([id number]) 1940 F Date Time Provider Department 04/04/25 2:40 PM MARIBELL HILL During your visit today, we recorded the following information about you: Pulse Blood pressure Weight 61/minute 112/70 71.9 kg Maribell Hill MD 04/04/2025 5:42 PM Signed [facility] SE[facility] OF REGIONAL CARDIOLOGY OUTPATIENT VISIT DATE 04/04/2025 OUTPATIENT VISIT TYPE ESTABLISHED PRIMARY CARE PHYSICIAN: Matheus Fajardo [address] [place] [address] Patient is being seen at the request of self for follow up HISTORY OF PRESENT ILLNESS: Ms. Herron is a 85 year old female, hx of CAD s/p remote balloon angioplasty 1988 followed by PCI to RCA 2003, mid to mod per 2021 TTE, Hypertension, HLD, JL on CPAP, AAA s/p stent 2004, WILLIE with 20-39% BRAYAN and 60-79% LICA [...] 07/07/2005 Infrarenal stent 2003 Coronary atherosclerosis 07/07/2005 DE, PTCA 1988. ST elev [place], RCA stent November 2003. Coronary atherosclerosis of unspecified type of vessel, morongo or graft 07/07/2005 DE, PTCA 1988. ST elev [place], RCA stent November 2003. DDD (degenerative disc [...] TUMOR POLYP LESION SNARE TQ 05/22/2017 multiple ubdgzd-xovch-uirq follow-up CORONARY ENDARTERCOMY OPEN ANY METHOD 1989 [...] of Onset (more content not included)... Normal [facility] MATTIE HERRON ([id number]) 1940 F Date Time Provider Department 04/04/25 [...] of cardiac valve disease unspecified [I35.0] Order(s):ECHO [052408] Order #: [id number]: 1 FUTURE Prescriptions as of 04/05/2025 - [...] behavioral disturbanc*10/15/2023 (more content not included)... Normal [facility] Neurology Visit Reporton Neurology Visit Report [facility] [address] [place] [address], [address] [place] [address] OFFICE VISIT Date of Service: 03/21/25 MR#: [id number] Acct: [id number] Name: MATTIE HERRON Rep #: [id number] : 1940 Provider: RABIA ojeda Age/Sex: 85/F Location: [facility]. Status: Signed HPI HPI Chief Complaint: Establish [...] also has a history of hypertension, PVD, DE, and cardiac stent (2003). Neurological history includes dementia, likely Alzheimer's, on donepezil. She also has diabetic neuropathy on gabapentin. There is no prior history of migraines, seizures, strokes, or other neurological disorders. Hospital course: On 11/10/2024, patient presented to [facility] emergency department with transient left-sided weakness, left [...] experienced. 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 Concern is also raised for potential seizure [...] reported wors (more content not included)... [facility] Office Visit (UCWSTR ) MATTIE HERRON ([id number]) 1940 F Date Time Provider Department 03/14/25 2:30 PM THEA CORDOBA [facility] During your visit today, we recorded the following information about you: Pulse Respiration Blood pressure Weight 76/minute 18/minute 122/70 69.8 kg Thea Cordoba APRN.[employer] 03/14/2025 3:58 PM Addendum [facility] Subjective Mattie Grisel Herron is a [...] 07/07/2005 Infrarenal stent 2003 Coronary atherosclerosis 07/07/2005 DE, PTCA 1988. ST elev [place], RCA stent November 2003. Coronary atherosclerosis of unspecified type of vessel, morongo or graft 07/07/2005 DE, PTCA 1988. ST elev [place], RCA stent November 2003. DDD (degenerative disc [...] TUMOR POLYP LESION SNARE TQ 05/22/2017 multiple ahfnnd-ylufm-hldk follow-up CORONARY ENDARTERCOMY OPEN ANY METHOD 1989 [...] benzonatate (T (more content not included)... Normal [facility] No Panel Informationon 03-14 Radiology Study observation (narrative) [facility] XR HAND 3V PA/LAT/OBL RTon 0 [...] otherwise maintained. IMPRESSION: No acute osseous abnormality. Community Organization Aide: FRANCESCA Transcribe Date/Time: Mar 14 2025 3:24P Dictated by : PAMELA HENSLEY DO This examination was interpreted and the report reviewed and electronically signed by: PAMELA HENSLEY DO on Mar 14 2025 3:26PM EST [id number] Normal [facility] XR Hand - right PA and Later al and Obliqueon 03-14-2025 IMPRESSION: No acute osseous abnormality. Community Organization Aide: FRANCESCA Transcribe Date/Time: Mar 14 2025 3:24P [...] are otherwise maintained. DIVISION OF RADIOLOGY [facility] * * *Final Report* * [...] maintained. IMPRESSION IMPRESSION: No acute osseous abnormality. Community Organization Aide: [facility] Transcribe Date/Time: Mar 14 2025 3:24P Dictated by : PAMELA HENSLEY DO This examination was interpreted and the report reviewed and electronically signed by: PAMELA HENSLEY DO on Mar 14 2025 3:26PM [facility] XR KNEE 4V AP/PA/LAT/MERCH B ILon 03-14-2025 [...] No radiographic evidence of acute osseous injury. Community Organization Aide: [facility] Transcribe Date/Time: Mar 14 2025 3:18P Dictated by : BRANDI HERNANDEZ MD This examination was interpreted and the report reviewed and electronically signed by: BRANDI HERNANDEZ MD on Mar 14 2025 3:24PM EST [id number] Normal [facility] XR Knee - bilateral 4 Viewso n 03-14-2025 IMPRESSION: No radiographic evidence of acute osseous injury. Community Organization Aide: FARNCESCA Transcribe Date/Time: Mar 14 2025 3:18P Dictated by : BRANDI HERNANDEZ MD This examination was interpreted and the report reviewed and electronically signed by: BRANDI HERNANDEZ MD on Mar 14 2025 3:24PM [facility] DIVISION OF RADIOLOGY * * *Final Report* [...] joint space narrowing. DIVISION OF RADIOLOGY Provider, [facility] - 03/14/2025 * * *Final Report* * [...] No radiographic evidence of acute osseous injury. Community Organization Aide: [facility] Transcribe Date/Time: Mar 14 2025 3:18P Dictated by : BRANDI HERNANDEZ MD This examination was interpreted and the report reviewed and electronically signed by: BRANDI HERNANDEZ MD on Mar 14 2025 3:24PM EST [facility] XR Knee - bilateral 4 ViewsO rdered By: Ccf Provider on 03-14-2025 [facility] CNOVon 02-27-2025 CNOV Office Visit ([facility] ) GOPALMATTIE Grisel ([id number]) 1940 F Date Time Provider Department 02/27/25 10:30 AM TRAM SANTANA [facility] During your visit today, we recorded the following information about you: Pulse Blood pressure Weight 51/minute 123/56 70.7 kg Tarm Santana MD 02/27/2025 2:51 PM Signed FOLLOW [...] October diagnosed as TIA at [facility] Donepezil increase led to diarrhea so back [...] Neurologic Exam: She is alert. Reg 11/28 [facility], February ? 2024, Mon, age 85, attention [...] Gait/station: Wid (more content not included)... Normal [facility] CBC panel Auto (Bld)on 02-23 Erythrocyte distribution width (RBC) [Ratio] 16.2 % High 11.5 - 15.0 % [facility] Hematocrit (Bld) [Volume fraction] 47.1 % High 36.0 - 46.0 % [facility] Hemoglobin (Bld) [Mass/Vol] 14.8 g/dL 11.5 - 15.5 g/dL [facility] Interpretation and review of laboratory results Abnormal [facility] MCH (RBC) [Entitic mass] 28.2 pg 26.0 - 34.0 pg [facility] MCHC (RBC) [Mass/Vol] 31.4 g/dL 30.5 - 36.0 g/dL [facility] MCV (RBC) [Entitic vol] 89.7 fL 80.0 - 100.0 fL [facility] Nucleated RBC (Bld) [#/Vol] NINF [facility] Platelet mean volume (Bld) [Entitic vol] 11.7 fL 9.0 - 12.7 fL [facility] Platelets (Bld) [#/Vol] 147 10*3/uL Low [facility] RBC (Bld) [#/Vol] 5.25 10*6/uL High 3.90 - 5.20 m/uL [facility] WBC (Bld) [#/Vol] 7.85 10*3/uL [facility] Erythrocyte distribution width (RBC) [Ratio] 16.2 % High 11.5-15.0 [facility] Comment on above: Order Comment: Speci men Type: BLOOD SPECIMENOrdering Facility: [facility] Address: [address] [place] [address] Performed By: #### 5 8410-2 ####[facility] [id number] [place] [address] [place] Hematocrit (Bld) [Volume fraction] 47.1 % High 36.0-46.0 [facility] Comment on above: Order Comment: Speci men Type: BLOOD SPECIMENOrdering Facility: [facility] Address: [address] [place] [address] Performed By: #### 5 8410-2 ####[facility] [id number] [address] [place] Hemoglobin (Bld) [Mass/Vol] 14.8 g/dL Normal 11.5-15.5 [facility] Comment on above: Order Comment: Speci men Type: BLOOD SPECIMENOrdering Facility: [facility] Address: [address] [place] [address] Performed By: #### 5 8410-2 ####[facility] [id number] [place] [address] [place] MCH (RBC) [Entitic mass] 28.2 pg Normal 26.0-34.0 [facility] Comment on above: Order Comment: Speci men Type: BLOOD SPECIMENOrdering Facility: [facility] Address: [address] [place] [address] Performed By: #### 5 8410-2 ####[facility] [id number] [place] [address] [place] MCHC (RBC) [Mass/Vol] 31.4 g/dL Normal 30.5-36.0 [facility] Comment on above: Order Comment: Speci men Type: BLOOD SPECIMENOrdering Facility: [facility] Address: [address] [place] [address] Performed By: #### 5 8410-2 ####[facility] [id number] [place] [address] [place] MCV (RBC) [Entitic vol] 89.7 fL Normal 80.0-100.0 [facility] Comment on above: Order Comment: Speci men Type: BLOOD SPECIMENOrdering Facility: [facility] Address: [address] [place] [address] Performed By: #### 5 8410-2 ####[facility] [id number] [place] [address] [place] Nucleated RBC (Bld) [#/Vol] 10*3/uL Normal <0.01 [facility] Comment on above: Order Comment: Speci men Type: BLOOD SPECIMENOrdering Facility: [facility] Address: [address] [place] [address] Performed By: #### 5 8410-2 ####[facility] [id number] [place] [address] [place] Platelet mean volume (Bld) [Entitic vol] 11.7 fL Normal 9.0-12.7 [facility] Comment on above: Order Comment: Speci men Type: BLOOD SPECIMENOrdering Facility: [facility] Address: [address] [place] [address] Performed By: #### 5 8410-2 ####[facility] [id number] [place] [address] [place] Platelets (Bld) [#/Vol] 147 10*3/uL Low 150-400 [facility] Comment on above: Order Comment: Speci men Type: BLOOD SPECIMENOrdering Facility: [facility] Address: [address] [place] [address] Performed By: #### 5 8410-2 ####[facility] [id number] [place] [address] [place] RBC (Bld) [#/Vol] 5.25 10*6/uL High 3.90-5.20 [facility] Comment on above: Order Comment: Speci men Type: BLOOD SPECIMENOrdering Facility: [facility] Address: [address] [place] [address] Performed By: #### 5 8410-2 ####[facility] [id number] [place] [address] [place] WBC (Bld) [#/Vol] 7.85 10*3/uL Normal 3.70-11.00 [facility] Comment on above: Order Comment: Speci men Type: BLOOD SPECIMENOrdering Facility: [facility] Address: [address] [place] [address] Performed By: #### 5 8410-2 ####[facility] [id number] [address] [place] CNOVon 02-23-2025 CNOV Office Visit (INTMWS ) MATTIE HERRON ([id number]) 1940 F Date Time Provider Department 02/23/25 [...] MD as PCP - General Cookie Sewell, BAG CHECKER.[employer] as Enterprise Systems Administrator (Internal Medicine) Tram Santana MD (Neurology) Maribell Hill MD (Cardiology) Outside specialists seen: Laura Mancuso PAC ([facility]) Ammy Linares OD ([facility]) Medical/Family history review Reviewed and updated problem [...] review all the medicines you take, even aikr-rek-ndxcgyo medicines. As you get older, the way [...] lights t (more content not included)... Normal [facility] Comprehensive metabolic 2000 panelon 02-23-2025 Albumin [Mass/Vol] 3.5 g/dL Low 3.9-4.9 [facility] Comment on above: Order Comment: Speci men Type: BLOOD SPECIMENOrdering Facility: [facility] Address: [facility] [place] [address] Performed By: #### 2 4323-8, LIPNF ####[facility] [id number] [place] [address] [place] ALP [Catalytic activity/Vol] 84 U/L Normal 34-123 [facility] Comment on above: Order Comment: Speci men Type: BLOOD SPECIMENOrdering Facility: [facility] Address: [address] [place] [address] Performed By: #### 2 4323-8, LIPNF ####[facility] [id number] [place] [id number] [place] ALT [Catalytic activity/Vol] 13 U/L Normal 7-38 [facility] Comment on above: Order Comment: Speci men Type: BLOOD SPECIMENOrdering Facility: [facility] Address: [address] [place] [address] Performed By: #### 2 4323-8, LIPNF ####[facility] [id number] [address] [address] [place] Anion gap [Moles/Vol] 12 mmol/L Normal 8-15 [facility] Comment on above: Order Comment: Speci men Type: BLOOD SPECIMENOrdering Facility: [facility] Address: [address] [place] [address] Performed By: #### 2 4323-8, LIPNF ####[facility] [id number] [address] [address] [place] AST [Catalytic activity/Vol] 17 U/L Normal 13-35 [facility] Comment on above: Order Comment: Speci men Type: BLOOD SPECIMENOrdering Facility: [facility] Address: [address] [place] [address] Performed By: #### 2 4323-8, LIPNF ####[facility] [id number] [place] [address] [place] Bilirubin [Mass/Vol] 0.5 mg/dL Normal 0.2-1.3 [facility] Comment on above: Order Comment: Speci men Type: BLOOD SPECIMENOrdering Facility: [facility] Address: [address] [place] [address] Performed By: #### 2 4323-8, LIPNF ####[facility] [id number] [place] [address] [place] Calcium [Mass/Vol] 9.7 mg/dL Normal 8.5-10.2 [facility] Comment on above: Order Comment: Speci men Type: BLOOD SPECIMENOrdering Facility: [facility] Address: [address] [place] [address] Performed By: #### 2 4323-8, LIPNF ####[facility] [id number] [place] [address] [place] Chloride [Moles/Vol] 106 mmol/L Normal 98-107 [facility] Comment on above: Order Comment: Speci men Type: BLOOD SPECIMENOrdering Facility: [facility] Address: [address] [place], [place] [id number] Performed By: #### 2 4323-8, LIPNF ####[facility] [id number] [place] [id number] [place] CO2 [Moles/Vol] 25 mmol/L Normal 22-30 [facility] Comment on above: Order Comment: Speci men Type: BLOOD SPECIMENOrdering Facility: [facility] Address: [address] [place] [address] Performed By: #### 2 4323-8, LIPNF ####[facility] [id number] [place] [id number] [place] Creatinine [Mass/Vol] 1.00 mg/dL High 0.58-0.96 [facility] Comment on above: Order Comment: Speci men Type: BLOOD SPECIMENOrdering Facility: [facility] Address: [address] [place] [address] Performed By: #### 2 4323-8, LIPNF ####[facility] [id number] [place] [address] [place] Creatinine and Glomerular filtration rate.predicted panel (S/P/Bld) 55 mL/min/1.73m??? Low >=60 [facility] Comment on above: Order Comment: Sidrai men Type: BLOOD SPECIMENOrdering Facility: [facility] Address: [address] [place] [address] Result Comment: Bryanna mated Glomerular Filtration Rate [...] GFR. Performed By: #### 2 4323-8, LIPNF ####[facility] [id number] [place] [id number] [place] Glucose [Mass/Vol] 123 mg/dL High 74-99 [facility] Comment on above: Order Comment: Speci men Type: BLOOD SPECIMENOrdering Facility: [facility] Address: [address] [place] [address] Result Comment: The [place] Diabetes Association (ADA) provides guidance for cutoff [...] Standards of Medical Care in Diabetes 2016, [place] Diabetes Association. Diabetes Care. 2016.39(Suppl 1). Performed By: #### 2 4323-8, LIPNF ####[facility] [id number] [address] [address] [place] Potassium [Moles/Vol] 4.1 mmol/L Normal 3.7-5.1 [facility] Comment on above: Order Comment: Speci men Type: BLOOD SPECIMENOrdering Facility: [facility] Address: [address] [place] [address] Performed By: #### 2 4323-8, LIPNF ####[facility] [id number] [address] [place] [address] [place] Protein [Mass/Vol] 6.3 g/dL Normal 6.3-8.0 [facility] Comment on above: Order Comment: Speci men Type: BLOOD SPECIMENOrdering Facility: [facility] Address: [address] [place] [address] Performed By: #### 2 4323-8, LIPNF ####[facility] [id number] [address] [address] [place] Sodium [Moles/Vol] 143 mmol/L Normal 136-144 [facility] Comment on above: Order Comment: Speci men Type: BLOOD SPECIMENOrdering Facility: [facility] Address: [address] [place] [address] Performed By: #### 2 4323-8, LIPNF ####[facility] [id number] [address] [place] [address] [place] Urea nitrogen [Mass/Vol] 16 mg/dL Normal 7-21 [facility] Comment on above: Order Comment: Stella johnson Type: BLOOD SPECIMENOrdering Facility: [facility] Address: [address] [place] [address] Performed By: #### 2 4323-8, LIPNF ####[facility] [id number] [address] [place] HbA1c (Bld)on 02-23-2025 Average glucose Estimated from glycated hemoglobin (Bld) [Mass/Vol] 126 mg/dL Normal [facility] Comment on above: Order Comment: Stella johnson Type: BLOOD SPECIMENOrdering Facility: [facility] Address: [address] [place] [address] Result Comment: eAG: (Estimated average glucose) is a calculated value from HgbA1c and is loan representative of the average blood glucose level in the last 2-3 month period. Performed By: #### 5 5454-3 ####[facility] [id number] [address] STATES OF [facility] HbA1c (Bld) [Mass fraction] 6.0 % High 4.3-5.6 [facility] Comment on above: Order Comment: Stella johnson Type: BLOOD SPECIMENOrdering Facility: [facility] Address: [address] [place] [address] Result Comment: Amer ican Diabetes Association guidelines indicate that patients with HgbA1c in the range 5.7-6.4% are at increased risk for development of diabetes, and intervention by lifestyle modification may be beneficial. HgbA1c greater or equal to 6.5% is considered diagnostic of diabetes. Performed By: #### 5 5454-3 ####[facility] LABIA [id number] [place] [id number] [facility] [place] LIPID PANEL, NONFASTINGon Cholesterol [Mass/Vol] 144 mg/dL Normal <200 [facility] Comment on above: Order Comment: Stella alex Type: BLOOD SPECIMENOrdering Facility: [facility] Address: [address] [place] [address] Result Comment: <200 mg/dL, Desirable 200-239 mg/dL, Borderline high >239 mg/dL, High Performed By: #### 2 4323-8, LIPNF ####[facility] LABCLIA [id number] [facility] [id number] [place] [address] [place] HDL CHOLESTEROL, NF 48 mg/dL Normal >39 [facility] Comment on above: Order Comment: Speci men Type: BLOOD SPECIMENOrdering Facility: [facility] Address: [address] [place] [address] Result Comment: 40-5 9 mg/dL, Acceptable >59 mg/dL, High: Negative risk factor for coronary heart disease <40 mg/dL, Low: Positive risk factor for coronary heart disease Performed By: #### 2 4323-8, LIPNF ####[facility] LABCLIA [id number] [address] [place] LDL CHOLESTEROL CALCULATED, NF 69 mg/dL Normal <100 [facility] Comment on above: Order Comment: Speci men Type: BLOOD SPECIMENOrdering Facility: [facility] Address: [address] [place] [address] Result Comment: <100 mg/dL, Optimal 100-129 mg/dL, Near optimal/above optimal 130-159 mg/dL, Borderline high 160-189 mg/dL, High >189 mg/dL, Very high Secondary prevention optimal LDL Cholesterol levels are recommended to be <70 mg/dL LDL cholesterol is calculated using the Bustillo-NIH equation. Performed By: #### 2 4323-8, LIPNF ####[facility] LABCLIA [id number] [address] OF [place] LDL/HDL RATIO, NF 1.44 mg/dL Normal <2.54 [facility] Comment on above: Order Comment: Speci men Type: BLOOD SPECIMENOrdering Facility: [facility] Address: [address] [place] [address] Result Comment: Refparamjit mohan: 1. National Cholesterol Education Program ATP III Guideline At-A-Glance Quick Desk Reference: National Heart, Lung, and Blood Garland. National Institutes of Health. 2001: NIH Publication No. 01-3305. 2. An International Atherosclerosis Society position paper: global recommendations for the management of dyslipidemia: executive summary, Atherosclerosis. 2014: 232(2):410-413. Performed By: #### 2 4323-8, LIPNF ####[facility] LABCLIA [id number] [address] [place] NON HDL CHOL, NF 96 mg/dL Normal <130 [facility] Comment on above: Order Comment: Speci men Type: BLOOD SPECIMENOrdering Facility: [facility] Address: [address] [place] [address] Result Comment: <130 mg/dL, Optimal 130-159 mg/dL, Near optimal/above optimal 160-189 mg/dL, Borderline high 190-219 mg/dL, High >219 mg/dL, Very high Secondary prevention optimal non HDL Cholesterol levels are recommended to be <100 mg/dL Performed By: #### 2 4323-8, LIPNF ####[facility] LABCLIA [id number] [address] OF [facility] T CHOL/HDL RATIO NF 3.00 mg/dL Normal <5.10 [facility] Comment on above: Order Comment: Speci men Type: BLOOD SPECIMENOrdering Facility: [facility] Address: [address] [place] [address] Performed By: #### 2 4323-8, LIPNF ####[facility] LABCLIA [id number] [place] [id number] [place] TRIGLYCERIDES, NF 156 mg/dL High <150 [facility] Comment on above: Order Comment: Speci men Type: BLOOD SPECIMENOrdering Facility: [facility] Address: [address] [place] [address] Result Comment: <150 mg/dL, Normal 150-199 mg/dL, Borderline high 200-499 mg/dL, High >499 mg/dL, Very high Performed By: #### 2 4323-8, LIPNF ####[facility] LABCLIA [id number] [place] [address] [place] VLDL CHOLESTEROL, NF 23 mg/dL Normal <30 [facility] Comment on above: Order Comment: Speci men Type: BLOOD SPECIMENOrdering Facility: [facility] Address: [address] [place] [address] Performed By: #### 2 4323-8, LIPNF ####[facility] LABCLIA [id number] [address] [place] CNOVon 01-21-2025 CNOV Office Visit (INTMWS ) MATTIE HERRON ([id number]) 1940 F Date Time Provider Department 01/21/25 11:00 AM ANDRIA BOSTON INTMWS During your visit today, we recorded the following information about you: Temperature Pulse Respiration Blood pressure 99.9 degrees 69/minute 20/minute 90/57 Weight 69.2 kg Andria Boston MD 01/21/2025 11:39 AM Signed This note was created using Sentrigoriter. Subjective Mattie Grisel Herron is a 85 [...] pollen levels during a recent trip to [place]. Additionally, Kami reports intermittent diarrhea occurring approximately [...] 07/07/2005 Infrarenal stent 2003 Coronary atherosclerosis 07/07/2005 [place], PTCA 1988. ST elev [place], RCA stent November 2003. Coronary atherosclerosis of unspecified type of vessel, morongo or graft 07/07/2005 [place], PTCA 1988. ST elev [place], RCA stent November 2003. DDD (degenerative disc [...] humidity, lif (more content not included)... Normal [facility] CNCOon 01-19-2025 CNCO Letter Text Normal [facility] CNOVon 01-18-2025 CNOV Office Visit (UCWSTR ) MATTIE HERRON ([id number]) 1940 F Date Time Provider Department 01/18/25 10:30 AM LORAINE SWIFT WSTR During your visit today, we recorded the following information about you: Temperature Pulse Respiration Blood pressure 99.3 degrees 70/minute 18/minute 120/68 Weight 69.4 kg Loraine Swift APRN.CNP 01/18/2025 11:39 AM Signed This note was created using GetGifted. Subjective Mattie Herron is a 85 year old female. HPI About a month ago patient was seen in urgent care in [place] where she was diagnosed with bronchitis and [...] A/B AND RSV PCR, ROUTINE Loraine Swift APRN.[employer] Allergies As of Date: 01/18/2025 Noted Allergy [...] Date Reviewed: 01/18/2025 Reviewed by: Loraine Swift APRN.[employer] - Fully Assessed Reason for Visit: Chest Congestion [236] Cmt: cough x 1 month Primary Visit Diagnosis:Acute cough [R05.1] Order(s):benzonatate (TESSALON PERLE) 100 mg capsuleTake 1 capsule by mouth three times a day as needed for cough for up to 12 doses.Disp: 12 capsuleRfl: 0 XR CHEST 2V FRONTAL/LAT [[id number]] Order #: [id number] FUTURE COVID AND INFLUENZA A/B AND RSV PCR, ROUTINE [SQCVFLRS] Order #: [id number]. #:[id number] Prescriptions as of 01/18/2025 - benzonatate (TESSALON [...] MG TAB (more content not included)... Normal [facility] ([id number]) 1940 F Date Time Provider Department 01/18/25 LORAINE SWIFT [facility] During your visit today, we recorded the following information about you: Loraine Swift, BAG CHECKER.[facility] 01/18/2025 1:58 PM Addendum I did attempt to contact patient to inform them that the chest x-ray was negative showing no signs of bacterial pneumonia. I do suspect that symptoms are more consistent with a postviral cough and I recommend that she use the cough medicine as prescribed and follow-up with her family doctor. 7850-I was able to make contact with and [...] Date Reviewed: 01/18/2025 Reviewed by: Loraine Swift, GERARDO.[employer] - Fully Assessed Reason for Visit: Results [...] Prediabetes [R73.03] (more content not included)... Normal [facility] COVID & INFLUENZA A/B & RSV PCR, ROUTINEon 01-18-2025 FLUAV RNA MARIN+probe Ql (Unsp spec) Not detected Not Detected [facility] FLUBV RNA MARIN+probe Ql (Unsp spec) Not detected Not Detected [facility] Interpretation and review of laboratory results Normal [facility] RSV A RNA MARIN+probe Ql (Unsp spec) Not detected Not Detected [facility] SARS-CoV-2 (COVID-19) RNA AMRIN+probe Ql (Unsp spec) Not detected See comment [facility] Reference Range (the expected result in uninfected individuals): Not detected [facility] XR CHEST 2V FRONTAL/LATon XR CHEST [...] Osseous demineralization. IMPRESSION: No acute radiographic abnormality. Community Organization [facility] Transcribe Date/Time: Jan 18 2025 11:16A Dictated by : BRANDI HERNANDEZ MD This examination was interpreted and the report reviewed and electronically signed by: BRANDI HERNANDEZ MD on Jan 18 2025 11:16AM EST [id number] Normal [facility] XR Chest PA and Lateralon IMPRESSION: No acute radiographic abnormality. Community Organization Aide: [facility] Transcribe Date/Time: Jan 18 2025 11:16A [...] tissues: Osseous demineralization. DIVISION OF RADIOLOGY Provider, [facility] - 01/18/2025 * * *Final Report* * [...] demineralization. IMPRESSION IMPRESSION: No acute radiographic abnormality. Community Organization Aide: [facility] Transcribe Date/Time: Jan 18 2025 11:16A Dictated by : BRANDI HERNANDEZ MD This examination was interpreted and the report reviewed and electronically signed by: BRANDI HERNANDEZ MD on Jan 18 2025 11:16AM EST [facility] Radiology Study observation (narrative) [facility] XR Chest PA and LateralOrder ed By: [facility] Provider on 01-18-2025 [facility] MR/BMS.[place] 12-02-2024 MR/BMS.BVS [facility] Vascular Surgery [address] [place] [address] OFFICE VISIT Date of Service: 12/02/24 MR#: [id number] Acct: [id number] Name: MATTIE HERRON Rep #: [id number] : 1940 Provider: BOB Lee Age/Sex: 84/F Location: [facility].BVS Status: Signed Intake Vital Signs 11/11/24 13:00 [...] hypertension Mixed hyperlipidemia Atherosclerotic heart disease of morongo coronary artery without angina pectoris Surgical History [...] generalized w (more content not included)... Normal [facility] 12 Lead EKGon 11-20-2024 12 Lead EKG [facility] Cardiovascular Services [address] [place] [address] 12 Lead EKG 11/20/24 0212 MR#: [id number] Acct: [id number] Name: MATTIE HERRON Rep #: [id number] : 1940 84 From: Michael Mccoy MD [...] Normal ECG Confirmed by Michael Mccoy ([id number]), associate editor TAZ MCNALLY ([id number]) on 11/21/2024 10:30:07 AM Referred By: Confirmed By: Michael Mccoy 11/21/24 1030 Date ___ Michael Mccoy MD CC: Dr. Matheus Fajardo MD; Maury Melton DO Signed Normal [facility] Basic Metabolic Profile (BMP )on 11-20-2024 BUN/CRE 12.8 RATIO Normal 10-20 [facility] Comment on above: Performed By: #### L 300.4310, L100.0100, L500.2500, L300.3900, L501.5200 #### [facility] Laboratory [address] [place], [address] CA,Total 9.1 mg/dL Normal 8.5-10.1 [facility] Comment on above: Performed By: #### L 300.4310, L100.0100, L500.2500, L300.3900, L501.5200 #### [facility] Laboratory [address] [place], [address] Chloride [Moles/Vol] 102 mmol/L Normal 98-107 [facility] Comment on above: Performed By: #### L 300.4310, L100.0100, L500.2500, L300.3900, L501.5200 #### [facility] Laboratory [address] [place], [address] CO2 [Moles/Vol] 26.0 mmol/L Normal 21.0-32.0 [facility] Comment on above: Performed By: #### L 300.4310, L100.0100, L500.2500, L300.3900, L501.5200 #### [facility] Laboratory [address] [place], [address] Creatinine [Mass/Vol] 0.86 mg/dL Normal 0.55-1.02 [facility] Comment on above: Result Comment: The validity of the calculated GFR GFRAA in patients over 70 years has not been determined. Clinical correlation is essential. Performed By: #### L 300.4310, L100.0100, L500.2500, L300.3900, L501.5200 #### [facility] Laboratory [address] [place], [address] ECRCL 46.51 ml/min Normal [facility] Comment on above: Performed By: #### L 300.4310, L100.0100, L500.2500, L300.3900, L501.5200 #### [facility] [address] [place], [address] EST GFR - AA 81 mL/min Normal >60 [facility] Comment on above: Result Comment: Afri can Indonesian GFR Calc Performed By: #### L 300.4310, L100.0100, L500.2500, L300.3900, L501.5200 #### [facility] Laboratory [address] [place], [address] GAP 7 Normal 5-15 [facility] Comment on above: Performed By: #### L 300.4310, L100.0100, L500.2500, L300.3900, L501.5200 #### [facility] Laboratory [address] [place], [address] GFR/1.73 sq M.predicted among non-blacks MDRD (S/P/Bld) [Vol rate/Area] 67 mL/min/{1.73_m2} Normal >60 [facility] Comment on above: Result Comment: Non- GFR Calc Performed By: #### L 300.4310, L100.0100, L500.2500, L300.3900, L501.5200 #### [facility] Laboratory [address] [place], [address] Glucose [Mass/Vol] 126 mg/dL High 74-106 [facility] Comment on above: Result Comment: Fast ing Glucose result greater than or equal to 126 mg/dL suggests DIABETES MELLITUS per A.D.A. criteria. Performed By: #### L 300.4310, L100.0100, L500.2500, L300.3900, L501.5200 #### [facility] [address] [place], [address] Potassium [Moles/Vol] 3.7 mmol/L Normal 3.5-5.1 [facility] Comment on above: Performed By: #### L 300.4310, L100.0100, L500.2500, L300.3900, L501.5200 #### [facility] [address] [place], [address] Sodium [Moles/Vol] 136 mmol/L Normal 136-145 [facility] Comment on above: Performed By: #### L 300.4310, L100.0100, L500.2500, L300.3900, L501.5200 #### [facility] [address] [place], [address] Urea nitrogen [Mass/Vol] 11 mg/dL Normal 7-18 [facility] Comment on above: Performed By: #### L 300.4310, L100.0100, L500.2500, L300.3900, L501.5200 #### [facility] [address] [place], [address] CBC W/Diff, Automatedon 02-2 Absolute Lymph 1.67 X10 3/uL Normal 0.83-4.51 [facility] Comment on above: Performed By: #### L 300.4310, L100.0100, L500.2500, L300.3900, L501.5200 #### [facility] [address] [place], [address] Absolute Neut 10.8 X10 3/uL High 2.0-7.7 [facility] Comment on above: Performed By: #### L 300.4310, L100.0100, L500.2500, L300.3900, L501.5200 #### [facility] [address] [place], [address] Basophils/100 WBC (Bld) 0.4 % Normal 0-1 [facility] Comment on above: Performed By: #### L 300.4310, L100.0100, L500.2500, L300.3900, L501.5200 #### [facility] [address] [place], [address] Eosinophils/100 WBC (Bld) 0.1 % Normal 0-5 [facility] Comment on above: Performed By: #### L 300.4310, L100.0100, L500.2500, L300.3900, L501.5200 #### [facility] [address] [place], [address] Erythrocyte distribution width (RBC) [Ratio] 14.3 % Normal 11.6-14.6 [facility] Comment on above: Performed By: #### L 300.4310, L100.0100, L500.2500, L300.3900, L501.5200 #### [facility] [address] [place], [address] Hematocrit (Bld) [Volume fraction] 43.1 % Normal 37-47 [facility] Comment on above: Performed By: #### L 300.4310, L100.0100, L500.2500, L300.3900, L501.5200 #### [facility] [address] [place], [address] Hemoglobin (Bld) [Mass/Vol] 14.2 g/dL Normal 12.0-15.0 [facility] Comment on above: Performed By: #### L 300.4310, L100.0100, L500.2500, L300.3900, L501.5200 #### [facility] Laboratory [address] [place], [address] IG% 0.600 Normal 0.0-0.9 [facility] Comment on above: Result Comment: IG% - Immature Granulocytes (promyelocytes, myelocytes and metamyelocytes) > 1% indicates that a LEFT SHIFT is Present. Performed By: #### L 300.4310, L100.0100, L500.2500, L300.3900, L501.5200 #### [facility] Laboratory [address] [facility] [place], [address] Lymphocytes/100 WBC (Bld) 12.0 % Low 19-41 [facility] Comment on above: Performed By: #### L 300.4310, L100.0100, L500.2500, L300.3900, L501.5200 #### [facility] [address], [address] MCH (RBC) [Entitic mass] 28.3 pg Normal 27.0-32.0 [facility] Comment on above: Performed By: #### L 300.4310, L100.0100, L500.2500, L300.3900, L501.5200 #### [facility] [address] [facility] [place], [address] MCHC (RBC) [Mass/Vol] 32.9 g/dL Normal 32-36 [facility] Comment on above: Performed By: #### L 300.4310, L100.0100, L500.2500, L300.3900, L501.5200 #### [facility] [address] [place], [address] MCV (RBC) [Entitic vol] 85.9 fL Normal 81-99 [facility] Comment on above: Performed By: #### L 300.4310, L100.0100, L500.2500, L300.3900, L501.5200 #### [facility] [address] [place], [address] Monocytes/100 WBC (Bld) 9.0 % Normal 0-10 [facility] Comment on above: Performed By: #### L 300.4310, L100.0100, L500.2500, L300.3900, L501.5200 #### [facility] Laboratory [address] [place], [address] Neutrophils/100 WBC (Bld) 77.9 % High 47-70 [facility] Comment on above: Performed By: #### L 300.4310, L100.0100, L500.2500, L300.3900, L501.5200 #### [facility] Laboratory [address] [place], [address] Nucleated RBC (Bld) [#/Vol] 0 10*3/uL Normal 0-5 [facility] Comment on above: Performed By: #### L 300.4310, L100.0100, L500.2500, L300.3900, L501.5200 #### [facility] Laboratory [address] [place], [address] Platelet mean volume (Bld) [Entitic vol] 9.8 fL Normal 6.2-12.0 [facility] Comment on above: Performed By: #### L 300.4310, L100.0100, L500.2500, L300.3900, L501.5200 #### [facility] Laboratory [address] [place], [address] Platelets (Bld) [#/Vol] 216 10*3/uL Normal 150-450 [facility] Comment on above: Performed By: #### L 300.4310, L100.0100, L500.2500, L300.3900, L501.5200 #### [facility] Laboratory [address] [place], [address] RBC (Bld) [#/Vol] 5.02 10*6/uL Normal 4.2-5.4 [facility] Comment on above: Performed By: #### L 300.4310, L100.0100, L500.2500, L300.3900, L501.5200 #### [facility] [address] [place], [address] RDW SD 45.0 fl High 35.1-43.9 [facility] Comment on above: Performed By: #### L 300.4310, L100.0100, L500.2500, L300.3900, L501.5200 #### [facility] Laboratory [address] [place], [address] WBC (Bld) [#/Vol] 13.9 10*3/uL High 4.4-11.0 [facility] Comment on above: Performed By: #### L 300.4310, L100.0100, L500.2500, L300.3900, L501.5200 #### [facility] Laboratory [address] [place], [address] CTA Head AND Neck W/ Contras ton 11-20-2024 CTA Head AND Neck W/ Contrast [facility] Imaging Services [address] [place] [address] CTA Head AND Neck W/ Contrast MR#: [id number] Acct: [id number] Name: MATTIE HERRON Rep #: [id number] : 1940 F 84 From: Ruiz Montana MD PCP: Dr. Matheus Fajardo MD Status: [facility] Study: CTA Head AND Neck W/ Contrast Date of Exam: Exam# [id number] Ordering Dr: Maury Melton DO PROCEDURE: CTA [...] Dr. Matheus Fajardo MD; Maury Melton DO Community Organization Aide: Signed Normal [facility] Chest 1 View (Portable)on Chest 1 View (Portable) [facility] Imaging Services [address] [place], [place] [address] Chest 1 View (Portable) MR#: [id number] Acct: [id number] Name: [place]SANAROLANFATOU[place]TIE Grisel Rep #: [id number] : 1940 F 84 From: Ruiz Montana MD PCP: Dr. Matheus Fajardo MD Status: [facility] Study: Chest 1 View (Portable) Date of Exam: 11/20/24 Exam# [id number] Ordering Dr: Maury Melton DO PROCEDURE: CHEST [...] airspace disease, and/or pleural effusion [facility] CC: Dr. Matheus Fajardo MD; Maury Melton DO Community Organization Aide: Signed Normal [facility] Emergency Department Summary on 11-20-2024 Emergency Department Summary [facility] Medical Records Department [address] [place] [address] Emergency Department Summary 11/20/24 MR#: [id number] Acct: [id number] Name: MATTIE HERRON Rep #: [id number] : 1940 84 From: Maury Melton DO PCP: Dr. Matheus Fajardo MD Status:[facility] ER Location: ED HPI History of [...] she was brought back in for evaluation [facility] Medical History (Updated 11/25/24 @ 07:12 by [...] hypertension Mixed hyperlipidemia Atherosclerotic heart disease of morongo coronary artery without angina pectoris Home Medications [...] AdvReac Other Verified 11/20/24 00:57 Family History Father Myocardial infarction Heart disease [...] pain, diarrh (more content not included)... Normal [facility] Magnesiumon 11-20-2024 Magnesium [Mass/Vol] 2.0 mg/dL Normal 1.6-2.6 [facility] Comment on above: Performed By: #### L 300.4310, L100.0100, L500.2500, L300.3900, L501.5200 #### [facility] Laboratory [address] [place], [address] Partial Thromboplast Timeon 11-20-2024 aPTT Coag (Bld) [Time] 34.9 s Normal 24.1-36.2 [facility] Comment on above: Performed By: #### L 300.4310, L100.0100, L500.2500, L300.3900, L501.5200 #### [facility] Laboratory [address] [place], [address] Prothrombin Time w/INRon INR Coag (PPP) [Relative time] 1.1 {INR} Normal [facility] Comment on above: Performed By: #### L 300.4310, L100.0100, L500.2500, L300.3900, L501.5200 #### [facility] Laboratory [address] [place], [address] PT Coag (PPP) [Time] 14.1 s Normal 11.7-14.9 [facility] Comment on above: Performed By: #### L 300.4310, L100.0100, L500.2500, L300.3900, L501.5200 #### [facility] [facility] [address] [place], [address] Urinalysis, Completeon 11-20 BACTERIA RARE Normal None Seen [facility] Comment on above: Order Comment: JOAN CTOR TO SPECIFY Performed By: #### L 400.0001 #### [facility] [address] [place], [address] EPI,SQUAMOUS 0-5 SEEN Normal 5-10 [facility] Comment on above: Order Comment: JOAN CTOR TO SPECIFY Performed By: #### L 400.0001 #### [facility] [address] [place], [address] RBC 0-5 SEEN Normal 0-5 [facility] Comment on above: Order Comment: JOAN CTOR TO SPECIFY Performed By: #### L 400.0001 #### [facility] [address] [place], [address] BILIRUBIN URINE Negative Normal Negative [facility] Comment on above: Order Comment: JOAN CTOR TO SPECIFY Performed By: #### L 400.0001 #### [facility] [address] [place], [address] Clarity (U) Clear Normal Clear [facility] Comment on above: Order Comment: JOAN CTOR TO SPECIFY Performed By: #### L 400.0001 #### [facility] [address] [place], [address] Color (U) Straw Normal Yellow [facility] Comment on above: Order Comment: JOAN CTOR TO SPECIFY Performed By: #### L 400.0001 #### [facility] [address] [place], [address] GLUCOSE, UR Normal Normal Normal [facility] Comment on above: Order Comment: JOAN CTOR TO SPECIFY Performed By: #### L 400.0001 #### [facility] [address] [place], [address] KETONE UR Negative Normal Negative [facility] Comment on above: Order Comment: JOAN CTOR TO SPECIFY Performed By: #### L 400.0001 #### [facility] [address] [place], [address] LEUK ESTERASE Negative Normal Negative [facility] Comment on above: Order Comment: JOAN CTOR TO SPECIFY Performed By: #### L 400.0001 #### [facility] [address] [place], [address] Nitrite Ql (U) Negative Normal Negative [facility] Comment on above: Order Comment: JOAN CTOR TO SPECIFY Performed By: #### L 400.0001 #### [facility] [address] [place], [address] OCCULT BLOOD-UR 25 /ul Abnormal Negative [facility] Comment on above: Order Comment: JOAN CTOR TO SPECIFY Performed By: #### L 400.0001 #### [facility] [address] [place], [address] pH UR 7.0 Normal 5.0 - 8.0 [facility] Comment on above: Order Comment: JOAN CTOR TO SPECIFY Performed By: #### L 400.0001 #### [facility] [address] [place], [address] PROT DIPSTX Negative Normal Negative [facility] Comment on above: Order Comment: JOAN CTOR TO SPECIFY Performed By: #### L 400.0001 #### [facility] [address] [place], [address] SP.GR. DIPSTX 1.005 Normal 1.002-1.03 0 [facility] Comment on above: Order Comment: JOAN CTOR TO SPECIFY Performed By: #### L 400.0001 #### [facility] [address] [place], [address] UROBILI Normal Normal Normal [facility] Comment on above: Order Comment: JOAN CTOR TO SPECIFY Performed By: #### L 400.0001 #### [facility] [address] [place], [address] Mucus Ql (Urine sed) 0 SEEN Normal [facility] Comment on above: Order Comment: JOAN CTOR TO SPECIFY Performed By: #### L 400.0001 #### [facility] [address] [place], [address] WBC 0 SEEN Normal 0-5 [facility] Comment on above: Order Comment: JOAN CTOR TO SPECIFY Performed By: #### L 400.0001 #### [facility] [address] [place], [address] CNOVon 11-14-2024 CNOV Office Visit (INTMWS ) MATTIE HERRON ([id number]) 1940 F Date Time Provider Department 11/14/24 2:20 PM MATHEUS FAJARDO INTMWS During your visit today, we recorded the following information about you: Temperature Pulse Respiration Blood pressure 97.9 degrees 64/minute 20/minute 86/46 Weight 69.2 kg Matheus Fajardo MD 11/14/2024 3:40 PM Signed This note was created using Sentrigoriter. Subjective Transitional Care Management Progress Note The [...] not ill (more content not included)... Normal [facility] Brain WITH Contraston 2024 Brain WITH Contrast [facility] Imaging Services [address] [place] [address] Brain WITH Contrast MR#: [id number] Acct: [id number] Name: MATTIE HERRON Rep #: [id number] : 1940 F 84 From: Ruiz Montana MD PCP: Dr. Matheus Fajardo MD Status: ADM STORMY Study: Brain WITH Contrast Date of Exam: 11/11/24 Exam# [id number] Ordering Dr: Trino Purcell MD PROCEDURE: BRAIN [...] Left anterior temporal lobe meningioma. Reading Location: [facility] CC: Dr. Trino Purcell MD; Dr. Matheus Fajardo MD Community Organization Aide: Signed Normal [facility] CBC W/Diff, Automatedon 10-29 Absolute Lymph 1.18 X10 3/uL Normal 0.83-4.51 [facility] Comment on above: Performed By: #### L 501.5200, L501.2300, L500.4100, L100.0100, L500.4050 ####[facility] [address] [place], [address] Absolute Neut 4.7 X10 3/uL Normal 2.0-7.7 [facility] Comment on above: Performed By: #### L 501.5200, L501.2300, L500.4100, L100.0100, L500.4050 ####[facility] [address] [place], [address] Basophils/100 WBC (Bld) 0.3 % Normal 0-1 [facility] Comment on above: Performed By: #### L 501.5200, L501.2300, L500.4100, L100.0100, L500.4050 ####[facility] [address] [place], [address] Eosinophils/100 WBC (Bld) 0.6 % Normal 0-5 [facility] Comment on above: Performed By: #### L 501.5200, L501.2300, L500.4100, L100.0100, L500.4050 ####[facility] [address] [place], [address] Erythrocyte distribution width (RBC) [Ratio] 14.6 % Normal 11.6-14.6 [facility] Comment on above: Performed By: #### L 501.5200, L501.2300, L500.4100, L100.0100, L500.4050 ####[facility] [address] [place], [address] Hematocrit (Bld) [Volume fraction] 44.7 % Normal 37-47 [facility] Comment on above: Performed By: #### L 501.5200, L501.2300, L500.4100, L100.0100, L500.4050 ####[facility] [address] [place], [address] Hemoglobin (Bld) [Mass/Vol] 14.9 g/dL Normal 12.0-15.0 [facility] Comment on above: Performed By: #### L 501.5200, L501.2300, L500.4100, L100.0100, L500.4050 ####[facility] [address] [place], [address] IG% 0.500 Normal 0.0-0.9 [facility] Comment on above: Result Comment: IG% - Immature Granulocytes (promyelocytes, myelocytes and metamyelocytes) > 1% indicates that a LEFT SHIFT is Present. Performed By: #### L 501.5200, L501.2300, L500.4100, L100.0100, L500.4050 ####[facility] [address] [place], [address] Lymphocytes/100 WBC (Bld) 18.0 % Low 19-41 [facility] Comment on above: Performed By: #### L 501.5200, L501.2300, L500.4100, L100.0100, L500.4050 ####[facility] [address] [place], [address] MCH (RBC) [Entitic mass] 28.7 pg Normal 27.0-32.0 [facility] Comment on above: Performed By: #### L 501.5200, L501.2300, L500.4100, L100.0100, L500.4050 ####[facility] [address] [place], [address] MCHC (RBC) [Mass/Vol] 33.3 g/dL Normal 32-36 [facility] Comment on above: Performed By: #### L 501.5200, L501.2300, L500.4100, L100.0100, L500.4050 ####[facility] [address] [place], [address] MCV (RBC) [Entitic vol] 86.0 fL Normal 81-99 [facility] Comment on above: Performed By: #### L 501.5200, L501.2300, L500.4100, L100.0100, L500.4050 ####[facility] [address] [place], [address] Monocytes/100 WBC (Bld) 9.3 % Normal 0-10 [facility] Comment on above: Performed By: #### L 501.5200, L501.2300, L500.4100, L100.0100, L500.4050 ####[facility] [address] [place], [address] Neutrophils/100 WBC (Bld) 71.3 % High 47-70 [facility] Comment on above: Performed By: #### L 501.5200, L501.2300, L500.4100, L100.0100, L500.4050 ####[facility] [address] [place], [address] Nucleated RBC (Bld) [#/Vol] 0 10*3/uL Normal 0-5 [facility] Comment on above: Performed By: #### L 501.5200, L501.2300, L500.4100, L100.0100, L500.4050 ####[facility] [address] [place], [address] Platelet mean volume (Bld) [Entitic vol] 11.2 fL Normal 6.2-12.0 [facility] Comment on above: Performed By: #### L 501.5200, L501.2300, L500.4100, L100.0100, L500.4050 ####[facility] [address] [place], [address] Platelets (Bld) [#/Vol] 122 10*3/uL Low 150-450 [facility] Comment on above: Performed By: #### L 501.5200, L501.2300, L500.4100, L100.0100, L500.4050 ####[facility] [address] [place], [address] RBC (Bld) [#/Vol] 5.20 10*6/uL Normal 4.2-5.4 [facility] Comment on above: Performed By: #### L 501.5200, L501.2300, L500.4100, L100.0100, L500.4050 ####[facility] [address] [place], [address] RDW SD 45.9 fl High 35.1-43.9 [facility] Comment on above: Performed By: #### L 501.5200, L501.2300, L500.4100, L100.0100, L500.4050 ####[facility] [address] [place], [address] WBC (Bld) [#/Vol] 6.6 10*3/uL Normal 4.4-11.0 [facility] Comment on above: Performed By: #### L 501.5200, L501.2300, L500.4100, L100.0100, L500.4050 ####[facility] [address] [place], [address] Carotid Duplex Ultrasoundon 11-11-2024 Carotid Duplex Ultrasound [facility] Cardiovascular Services [address] [place] [address] Carotid Duplex Ultrasound 11/11/24 1434 MR#: [id number] Acct: [id number] Name: MATTIE HERRON Rep #: [id number] : 1940 84 From: Jose Martin Frank MD Attending Dr: Dr. Trino Purcell MD Status : DIS STORMY Ordering Dr: Trino Purcell MD Date: 11/11/24 Location: [facility] Sex: F C Admitted: 11/10/24 Reason For [...] in the left bulb. Procedure Carotid Duplex 48342. This is a Carotid Duplex examination using [...] MD Date Dictated: 11/11/241433 Date Transcribed: 11/11/242351 Community Organization Aide: Signed Normal [facility] Comprehensive Metabolic Prof ilon 11-11-2024 Albumin [Mass/Vol] 3.1 g/dL Low 3.2-5.0 [facility] Comment on above: Order Comment: Comme nts: NPO at ND prior to lipid panel Performed By: #### L 501.5200, L501.2300, L500.4100, L100.0100, L500.4050 ####[facility] [address] [place], [address] Albumin/Globulin [Mass ratio] 0.9 {ratio} Normal 0.9-2.4 [facility] Comment on above: Order Comment: Comme nts: NPO at ND prior to lipid panel Performed By: #### L 501.5200, L501.2300, L500.4100, L100.0100, L500.4050 ####[facility] [address] [place], [address] ALK P 70 U/L Normal 45-117 [facility] Comment on above: Order Comment: Comme nts: NPO at [place] prior to lipid panel Performed By: #### L 501.5200, L501.2300, L500.4100, L100.0100, L500.4050 ####[facility] [address] [place], [address] ALT [Catalytic activity/Vol] 22 U/L Normal 13-56 [facility] Comment on above: Order Comment: Comme nts: NPO at MN prior to lipid panel Performed By: #### L 501.5200, L501.2300, L500.4100, L100.0100, L500.4050 ####[facility] [address] [place], [address] AST [Catalytic activity/Vol] 21 U/L Normal 15-37 [facility] Comment on above: Order Comment: Comme nts: NPO at MN prior to lipid panel Performed By: #### L 501.5200, L501.2300, L500.4100, L100.0100, L500.4050 ####[facility] [address] [place], [address] Bilirubin [Mass/Vol] 0.80 mg/dL Normal 0.20-1.00 [facility] Comment on above: Order Comment: Comme nts: NPO at MN prior to lipid panel Result Comment: For patients on eltrombopag therapy, use of [place] TBIL is not recommended. Performed By: #### L 501.5200, L501.2300, L500.4100, L100.0100, L500.4050 ####[facility] [address] [place], [address] BUN/CRE 18.2 RATIO Normal 10-20 [facility] Comment on above: Order Comment: Comme nts: NPO at MN prior to lipid panel Performed By: #### L 501.5200, L501.2300, L500.4100, L100.0100, L500.4050 ####[facility] [address] [place], [address] CA,Total 9.0 mg/dL Normal 8.5-10.1 [facility] Comment on above: Order Comment: Comme nts: NPO at MN prior to lipid panel Performed By: #### L 501.5200, L501.2300, L500.4100, L100.0100, L500.4050 ####[facility] [address] [place], [address] Chloride [Moles/Vol] 102 mmol/L Normal 98-107 [facility] Comment on above: Order Comment: Comme nts: NPO at MN prior to lipid panel Performed By: #### L 501.5200, L501.2300, L500.4100, L100.0100, L500.4050 ####[facility] [address] [place], [address] CO2 [Moles/Vol] 24.0 mmol/L Normal 21.0-32.0 [facility] Comment on above: Order Comment: Comme nts: NPO at MN prior to lipid panel Performed By: #### L 501.5200, L501.2300, L500.4100, L100.0100, L500.4050 ####[facility] [address] [place], [address] Creatinine [Mass/Vol] 0.88 mg/dL Normal 0.55-1.02 [facility] Comment on above: Order Comment: Comme nts: NPO at MN prior to lipid panel Result Comment: The validity of the calculated GFR GFRAA in patients over 70 years has not been determined. Clinical correlation is essential. Performed By: #### L 501.5200, L501.2300, L500.4100, L100.0100, L500.4050 ####[facility] [address] [place], [address] ECRCL 45.45 ml/min Normal [facility] Comment on above: Order Comment: Comme nts: NPO at MN prior to lipid panel Performed By: #### L 501.5200, L501.2300, L500.4100, L100.0100, L500.4050 ####[facility] [address] [place], [address] EST GFR - AA 78 mL/min Normal >60 [facility] Comment on above: Order Comment: Comme nts: NPO at MN prior to lipid panel Result Comment: Afri can Indonesian GFR Calc Performed By: #### L 501.5200, L501.2300, L500.4100, L100.0100, L500.4050 ####[facility] [address] [place], [address] GAP 9 Normal 5-15 [facility] Comment on above: Order Comment: Comme nts: NPO at MN prior to lipid panel Performed By: #### L 501.5200, L501.2300, L500.4100, L100.0100, L500.4050 ####[facility] [address] [place], [address] GFR/1.73 sq M.predicted among non-blacks MDRD (S/P/Bld) [Vol rate/Area] 65 mL/min/{1.73_m2} Normal >60 [facility] Comment on above: Order Comment: Comme nts: NPO at MN prior to lipid panel Result Comment: Non- GFR Calc Performed By: #### L 501.5200, L501.2300, L500.4100, L100.0100, L500.4050 ####[facility] [address] [place], [address] Globulin (S) [Mass/Vol] 3.4 g/dL Normal 2.2-4.2 [facility] Comment on above: Order Comment: Comme nts: NPO at MN prior to lipid panel Performed By: #### L 501.5200, L501.2300, L500.4100, L100.0100, L500.4050 ####[facility] [address] [place], [address] Glucose [Mass/Vol] 89 mg/dL Normal 74-106 [facility] Comment on above: Order Comment: Comme nts: NPO at MN prior to lipid panel Performed By: #### L 501.5200, L501.2300, L500.4100, L100.0100, L500.4050 ####[facility] [address] [place], [address] Potassium [Moles/Vol] 3.6 mmol/L Normal 3.5-5.1 [facility] Comment on above: Order Comment: Comme nts: NPO at MN prior to lipid panel Performed By: #### L 501.5200, L501.2300, L500.4100, L100.0100, L500.4050 ####[facility] [address] [place], [address] Sodium [Moles/Vol] 135 mmol/L Low 136-145 [facility] Comment on above: Order Comment: Comme nts: NPO at MN prior to lipid panel Performed By: #### L 501.5200, L501.2300, L500.4100, L100.0100, L500.4050 ####[facility] [address] [place], [address] T PROT 6.5 g/dL Normal 6.4-8.2 [facility] Comment on above: Order Comment: Comme nts: NPO at MN prior to lipid panel Performed By: #### L 501.5200, L501.2300, L500.4100, L100.0100, L500.4050 ####[facility] [address] [place], [address] Urea nitrogen [Mass/Vol] 16 mg/dL Normal 7-18 [facility] Comment on above: Order Comment: Comme nts: NPO at MN prior to lipid panel Performed By: #### L 501.5200, L501.2300, L500.4100, L100.0100, L500.4050 ####[facility] [address] [place], [address] Discharge Instructionon 10-29 Discharge Instruction [facility] Medical Records Department [address] [place] [address] Instructions for Home/Discharge Instructions 11/11/24 1512 MR#: [id number] Acct: [id number] Name: MATTIE HERRON Rep #: [id number] : 1940 84 From: Trino Purcell MD [...] can be placed): Home, Self Care 11/11/24 1518 Trino Purcell MD CC: Laura Hernandez; Ivonne Huddleston; Trae Anaya; Tiff Cueva MD; Brandie Walsh MD; Alvin Bell MD; Dr. Tanika Morgan MD; Dr. Konstantin Tong MD; Dr. Mandy Flores MD; Dr. Dave Russell MD; Dr. Clement Grissom MD; Dr. Roger Wladen MD; Dr. Lennie Jameson DO; Dr. Nikhil Mallory DO; Dr. Cayla Trujillo MD; Dr. Kristen Friedman MD; Dr. Carlos Parham MD; Dr. Víctor Dao MD; Dr. Matheus Fajardo MD; Dr. Saranya Jameson MD; Mattie Thomas DO; Lui Justice MD Signed Normal [facility] Lipid Profileon 11-11-2024 Cholesterol [Mass/Vol] 109 mg/dL Normal 200 [facility] Comment on above: Order Comment: Comme nts: NPO at ND prior to lipid panel Result Comment: <200 mg/dL Desirable 200-240 mg/dL Borderline >240 mg/dL High Risk Performed By: #### L 501.5200, L501.2300, L500.4100, L100.0100, L500.4050 ####[facility] [address] [place], [address] Cholesterol in HDL [Mass/Vol] 45 mg/dL Normal [facility] Comment on above: Order Comment: Comme nts: NPO at MN prior to lipid panel Result Comment: The drugs N-Acetylcysteine and Metamizole may falsely depress this assay. Reference Range HDL <40 mg/dL Low HDL Cholesterol HDL >or= 60 mg/dL High HDL Cholesterol Performed By: #### L 501.5200, L501.2300, L500.4100, L100.0100, L500.4050 ####[facility] [address] [place], [address] Cholesterol in LDL [Mass/Vol] 43 mg/dL Normal 0-130 [facility] Comment on above: Order Comment: Comme nts: NPO at MN prior to lipid panel Performed By: #### L 501.5200, L501.2300, L500.4100, L100.0100, L500.4050 ####[facility] [address] [place], [address] Cholesterol in VLDL [Mass/Vol] 21 mg/dL Normal 5-40 [facility] Comment on above: Order Comment: Comme nts: NPO at MN prior to lipid panel Performed By: #### L 501.5200, L501.2300, L500.4100, L100.0100, L500.4050 ####[facility] [address] [place], [address] Triglyceride [Mass/Vol] 105 mg/dL Normal [facility] Comment on above: Order Comment: Comme nts: NPO at MN prior to lipid panel Result Comment: The drugs N-Acetylcysteine and Metamizole may falsely depress this assay. Serum Triglycerides Reference Interval Normal <150 mg/dL Borderline high 150 - 199 mg/dL High 200 - 499 mg/dL Very High > or = 500 mg/dL Performed By: #### L 501.5200, L501.2300, L500.4100, L100.0100, L500.4050 ####[facility] [address] [place], [address] MR/CON.PCM.NEon 11-11-2024 MR/CON.PCM.NE [facility] Medical Records Department [address] [place] [address] Consultation - Neurology 11/11/24 1259 MR#: [id number] Acct: [id number] Name: MATTIE HERRON Rep #: [id number] : 1940 84 From: Ivonne Huddleston MD PCP: Dr. Matheus Fajardo MD Status:ADM STORMY Location: [place] [address] Assessment and Plan: Neuro Assessment/Plan MATTIE HERRON [...] who presented to the emergency department at [facility] on 11/10/2024 with a chief complaint of [...] Found to be positive for influenza A. 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 Normal [facility] Magnesiumon 11-11-2024 Magnesium [Mass/Vol] 2.2 mg/dL Normal 1.6-2.6 [facility] Comment on above: Order Comment: Comme nts: NPO at ND prior to lipid panel Performed By: #### L 501.5200, L501.2300, L500.4100, L100.0100, L500.4050 ####[facility] [address] [place], [address] Phosphoruson 11-11-2024 Phosphate [Mass/Vol] 3.4 mg/dL Normal 2.5-4.9 [facility] Comment on above: Order Comment: Comme nts: NPO at ND prior to lipid panel Performed By: #### L 501.5200, L501.2300, L500.4100, L100.0100, L500.4050 ####[facility] [address] [place], [address] 12 Lead EKGon 11-10-2024 12 Lead EKG [facility] Cardiovascular Services [address] [place] [address] 12 Lead EKG 11/10/24 1356 MR#: [id number] Acct: [id number] Name: MATTIE HERRON Rep #: [id number] : 1940 84 From: Arcelia Mcmahan MD Attending Dr: Dr. Trino Purcell MD Status : DIS STORMY Ordering Dr: Arleen Lord DO Date: 11/10/24 Location: [facility] Sex: F C Admitted: 11/10/24 Test Reason [...] Abnormal ECG Confirmed by LORENA MONTOYA, JASMINE ([id number]), associate editor MALU YUSUF ([id number]) on 11/14/2024 8:05:23 AM Referred By: BABITA Confirmed By: JASMINE MCMAHAN MD 11/14/24 08 Date ___ Arcelia Mcmahan MD CC: Dr. Trino Purcell MD; Dr. Arleen Lord DO; Dr. Matheus Fajardo MD Signed Normal [facility] Basic Metabolic Profile (BMP )on 11-10-2024 BUN/CRE 17.4 RATIO Normal 10-20 [facility] Comment on above: Order Comment: 'TROP ' Serial specimen #1, #2 or #3: 1 Performed By: #### L 501.4020, L500.2500, L300.3900, L100.0100 ####[facility] [address] [place], [address] CA,Total 9.2 mg/dL Normal 8.5-10.1 [facility] Comment on above: Order Comment: 'TROP ' Serial specimen #1, #2 or #3: 1 Performed By: #### L 501.4020, L500.2500, L300.3900, L100.0100 ####[facility] [address] [place], [address] Chloride [Moles/Vol] 106 mmol/L Normal 98-107 [facility] Comment on above: Order Comment: 'TROP ' Serial specimen #1, #2 or #3: 1 Performed By: #### L 501.4020, L500.2500, L300.3900, L100.0100 ####[facility] [address] [place], [address] CO2 [Moles/Vol] 26.0 mmol/L Normal 21.0-32.0 [facility] Comment on above: Order Comment: 'TROP ' Serial specimen #1, #2 or #3: 1 Performed By: #### L 501.4020, L500.2500, L300.3900, L100.0100 ####[facility] [address] [place], [address] Creatinine [Mass/Vol] 0.98 mg/dL Normal 0.55-1.02 [facility] Comment on above: Order Comment: 'TROP ' Serial specimen #1, #2 or #3: 1 Result Comment: The validity of the calculated GFR GFRAA in patients over 70 years has not been determined. Clinical correlation is essential. Performed By: #### L 501.4020, L500.2500, L300.3900, L100.0100 ####[facility] [address] [place], [address] ECRCL 39.29 ml/min Normal [facility] Comment on above: Order Comment: 'TROP ' Serial specimen #1, #2 or #3: 1 Performed By: #### L 501.4020, L500.2500, L300.3900, L100.0100 ####[facility] [address] [place], [address] EST GFR - AA 70 mL/min Normal >60 [facility] Comment on above: Order Comment: 'TROP ' Serial specimen #1, #2 or #3: 1 Result Comment: Afri can Indonesian GFR Calc Performed By: #### L 501.4020, L500.2500, L300.3900, L100.0100 ####[facility] [address] [place], [address] GAP 7 Normal 5-15 [facility] Comment on above: Order Comment: 'TROP ' Serial specimen #1, #2 or #3: 1 Performed By: #### L 501.4020, L500.2500, L300.3900, L100.0100 ####[facility] [address] [place], [address] GFR/1.73 sq M.predicted among non-blacks MDRD (S/P/Bld) [Vol rate/Area] 58 mL/min/{1.73_m2} Low >60 [facility] Comment on above: Order Comment: 'TROP ' Serial specimen #1, #2 or #3: 1 Result Comment: Non- GFR Calc Performed By: #### L 501.4020, L500.2500, L300.3900, L100.0100 ####[facility] [address] [place], [address] Glucose [Mass/Vol] 109 mg/dL High 74-106 [facility] Comment on above: Order Comment: 'TROP ' Serial specimen #1, #2 or #3: 1 Result Comment: Fast ing Glucose result from 100 to 125 mg/dL suggests IMPAIRED HOMEOSTASIS per A.D.A. criteria. Performed By: #### L 501.4020, L500.2500, L300.3900, L100.0100 ####[facility] [address] [place], [address] Potassium [Moles/Vol] 4.3 mmol/L Normal 3.5-5.1 [facility] Comment on above: Order Comment: 'TROP ' Serial specimen #1, #2 or #3: 1 Performed By: #### L 501.4020, L500.2500, L300.3900, L100.0100 ####[facility] [address] [place], [address] Sodium [Moles/Vol] 139 mmol/L Normal 136-145 [facility] Comment on above: Order Comment: 'TROP ' Serial specimen #1, #2 or #3: 1 Performed By: #### L 501.4020, L500.2500, L300.3900, L100.0100 ####[facility] [address] [place], [address] Urea nitrogen [Mass/Vol] 17 mg/dL Normal 7-18 [facility] Comment on above: Order Comment: 'TROP ' Serial specimen #1, #2 or #3: 1 Performed By: #### L 501.4020, L500.2500, L300.3900, L100.0100 ####[facility] [address] [place], [address] Brain without Contraston Brain without Contrast [facility] Imaging Services [address] [place] [address] Brain without Contrast MR#: [id number] Acct: [id number] Name: MATTIE HERRON Rep #: [id number] : 1940 F 84 From: Wilmer Yu DO PCP: Dr. Matheus Fajardo MD Status: ADM STORMY Study: Brain without Contrast Date of Exam: 11/10/24 Exam# [id number] Ordering Dr: Lennie Jameson DO PROCEDURE: MRI [...] Lennie Jameson DO; Dr. Matheus Fajardo MD Community Organization Aide: Signed Normal [facility] CBC W/Diff, Automatedon 10-29 Absolute Lymph 0.56 X10 3/uL Low 0.83-4.51 [facility] Comment on above: Performed By: #### L 501.4020, L500.2500, L300.3900, L100.0100 ####[facility] [address] [place], [address] Absolute Neut 5.4 X10 3/uL Normal 2.0-7.7 [facility] Comment on above: Performed By: #### L 501.4020, L500.2500, L300.3900, L100.0100 ####[facility] [address] [place], [address] Basophils/100 WBC (Bld) 0.3 % Normal 0-1 [facility] Comment on above: Performed By: #### L 501.4020, L500.2500, L300.3900, L100.0100 ####[facility] [address] [place], [address] Eosinophils/100 WBC (Bld) 0.6 % Normal 0-5 [facility] Comment on above: Performed By: #### L 501.4020, L500.2500, L300.3900, L100.0100 ####[facility] [address] [place], [address] Erythrocyte distribution width (RBC) [Ratio] 14.5 % Normal 11.6-14.6 [facility] Comment on above: Performed By: #### L 501.4020, L500.2500, L300.3900, L100.0100 ####[facility] [address] [place], [address] Hematocrit (Bld) [Volume fraction] 45.6 % Normal 37-47 [facility] Comment on above: Performed By: #### L 501.4020, L500.2500, L300.3900, L100.0100 ####[facility] [address] [place], [address] Hemoglobin (Bld) [Mass/Vol] 15.2 g/dL High 12.0-15.0 [facility] Comment on above: Performed By: #### L 501.4020, L500.2500, L300.3900, L100.0100 ####[facility] [address] [place], [address] IG% 0.300 Normal 0.0-0.9 [facility] Comment on above: Result Comment: IG% - Immature Granulocytes (promyelocytes, myelocytes and metamyelocytes) > 1% indicates that a LEFT SHIFT is Present. Performed By: #### L 501.4020, L500.2500, L300.3900, L100.0100 ####[facility] [address] [place], [address] Lymphocytes/100 WBC (Bld) 8.7 % Low 19-41 [facility] Comment on above: Performed By: #### L 501.4020, L500.2500, L300.3900, L100.0100 ####[facility] [address] [place], [address] MCH (RBC) [Entitic mass] 28.9 pg Normal 27.0-32.0 [facility] Comment on above: Performed By: #### L 501.4020, L500.2500, L300.3900, L100.0100 ####[facility] [address] [place], [address] MCHC (RBC) [Mass/Vol] 33.3 g/dL Normal 32-36 [facility] Comment on above: Performed By: #### L 501.4020, L500.2500, L300.3900, L100.0100 ####[facility] [address] [place], [address] MCV (RBC) [Entitic vol] 86.7 fL Normal 81-99 [facility] Comment on above: Performed By: #### L 501.4020, L500.2500, L300.3900, L100.0100 ####[facility] [address] [place], [address] Monocytes/100 WBC (Bld) 6.0 % Normal 0-10 [facility] Comment on above: Performed By: #### L 501.4020, L500.2500, L300.3900, L100.0100 ####[facility] [address] [place], [address] Neutrophils/100 WBC (Bld) 84.1 % High 47-70 [facility] Comment on above: Performed By: #### L 501.4020, L500.2500, L300.3900, L100.0100 ####[facility] [address] [place], [address] Nucleated RBC (Bld) [#/Vol] 0 10*3/uL Normal 0-5 [facility] Comment on above: Performed By: #### L 501.4020, L500.2500, L300.3900, L100.0100 ####[facility] [address] [place], [address] Platelet mean volume (Bld) [Entitic vol] 11.1 fL Normal 6.2-12.0 [facility] Comment on above: Performed By: #### L 501.4020, L500.2500, L300.3900, L100.0100 ####[facility] [address] [place], [address] Platelets (Bld) [#/Vol] 145 10*3/uL Low 150-450 [facility] Comment on above: Performed By: #### L 501.4020, L500.2500, L300.3900, L100.0100 ####[facility] [address] [place], [address] RBC (Bld) [#/Vol] 5.26 10*6/uL Normal 4.2-5.4 [facility] Comment on above: Performed By: #### L 501.4020, L500.2500, L300.3900, L100.0100 ####[facility] [address] [place], [address] RDW SD 46.1 fl High 35.1-43.9 [facility] Comment on above: Performed By: #### L 501.4020, L500.2500, L300.3900, L100.0100 ####[facility] [address] [place], [address] WBC (Bld) [#/Vol] 6.5 10*3/uL Normal 4.4-11.0 [facility] Comment on above: Performed By: #### L 501.4020, L500.2500, L300.3900, L100.0100 ####[facility] [address] [place], [address] Chest 1 Viewon 11-10-2024 Chest [address] [facility] Imaging Services [address] [place] [address] Chest 1 View MR#: [id number] Acct: [id number] Name: MATTIE HERRON Rep #: [id number] : 1940 F 84 From: Alejandro Solano PCP: Dr. Matheus Fajardo MD Status: REG ER Study: Chest 1 View Date of Exam: 11/10/24 Exam# [id number] Ordering Dr: Arleen Lord DO PROCEDURE: CHEST [...] evidence of acute cardiopulmonary disease. Reading Location: [address] CC: Dr. Arleen Lord DO; Dr. Matheus Fajardo MD Community Organization Aide: Signed Normal [facility] Echo Complete W/ Contraston 11-10-2024 Echo Complete W/ Contrast [facility] Cardiovascular Services [address] [place] [address] Echo Complete W/ Contrast 11/11/24 0843 MR#: [id number] Acct: [id number] Name: MATTIE HERRON Rep #: [id number] : 1940 84 From: Arcelia Mcmahan MD [...] max yovanny: 80.8 cm/sec Lat Peak E' Yovanny: 8.3 cm/sec Med Peak E' Yovanny: 7.4 [...] Dictated: 11/11/24 0843 Date Transcribed: 11/11/24 1125 Community Organization Aide: Signed Normal [facility] Emergency Department Summary on 11-10-2024 Emergency Department Summary [facility] Medical Records Department [address] [place] [address] Emergency Department Summary 11/10/24 MR#: [id number] Acct: [id number] Name: MATTIE HERRON Rep #: [id number] : 1940 84 From: Arleen Lord DO PCP: Dr. Matheus Fajardo MD Status:ADM STORMY Location: [place] [address] HPI History of Present Illness Chief Complaint: [...] denies chest pain or shortness of breath. [facility] Medical History (Updated 11/10/24 @ 14:27 by [...] hypertension Mixed hyperlipidemia Atherosclerotic heart disease of morongo coronary artery without angina pectoris Home Medications [...] AdvReac Other Verified 11/10/24 13:08 Family History Father Myocardial infarction Heart disease CVA (cerebral vascular accident) Diabetes Brother CAD (coronary artery disease) Surgical History History of left breast biopsy Cataract extraction status of left eye History of surgery on wrist History of cystoscopy Presence of coronary angioplasty implant and graft ( 12/18/03) Social History Smoking Status: Current every day [...] frequency Musculoskeletal (more content not included)... Normal [facility] H AND P Exam - Hospitaliston 11-10-2024 H&P Exam - Hospitalist [facility] Medical Records Department [address] [place] [address] H P Exam - Hospitalist 11/10/24 1427 MR#: [id number] Acct: [id number] Name: MATTIE HERRON Rep #: [id number] : 1940 84 From: Lennie Jameson DO PCP: Dr. Matheus Fajardo MD Status:ADM STORMY Location: [place] [address] HPI - General General Date of Admission: 11/10/24 Date of Service: 11/10/24 Chief Complaint: L sided weakness/L facial droop HPI Narrative MATTIE HERRON, is a 84 F who presented to the emergency department at [facility] on 11/10/2024 with a chief complaint of [...] agreed with admission for stroke rule out. COUNT INCLUDES THE [facility] Medical History (Updated 11/10/24 @ 20:01 [...] hypertension Mixed hyperlipidemia Atherosclerotic heart disease of morongo coronary artery without angina pectoris Home Medications [...] 11/10/24 13:08 (more content not included)... Normal [facility] Hemoglobin A1con 11-10-2024 HbA1c (Bld) [Mass fraction] 6.2 % High 3.8-5.6 [facility] Comment on above: Result Comment: Norm al < 5.7 % Prediabetic 5.7 - 6.4 % Diabetic >or= 6.5 % Please note range changes. Performed By: #### L 162.6225 ####[facility] [address] [place], [address] L501.4020on 11-10-2024 TROPONIN-I HS < 3 Low 3.0-54.0 [facility] Comment on above: Order Comment: 'TROP ' Serial specimen #1, #2 or #3: 1 Result Comment: Radha martinez Note: New Test Units and Gender Specific Reference Ranges. For more information see Policy Stat Procedure [place] High Sensitivity Troponin (TNIH) and attachments. Performed By: #### L 501.4020, L500.2500, L300.3900, L100.0100 ####[facility] [address] [place], [address] M100.678on 11-10-2024 SARS-CoV-2 (COVID-19) Ab IA Ql Normal Reference Range = Negative FLUABV+SARS-CoV-2+RSV Pnl Resp MARIN+probe GeneXpert Instrument, PCR method FLUABV+SARS-CoV-2+RSV Pnl Resp MARIN+probe RESULTS CALLED TO CHIARA FUNES 11/10/24 145Elsy Cruz. REPORT READ BACK BY . SARS-CoV-2 (COVID 19) Negative INFLUENZA A A Positive A INFLUENZA B Negative RSV PCR Negative INFLUENZAE A Normal [facility] Comment on above: Performed By: #### M 100.678 ####[facility] [address] [place], [address] Partial Thromboplast Timeon 11-10-2024 aPTT Coag (Bld) [Time] 32.7 s Normal 24.1-36.2 [facility] Comment on above: Order Comment: REDRA W. PREVIOUS SPECIMEN REJECTED DUE TOHEMOLYSIS. 11/10/24 1351 Jol[address] Matute. Performed By: #### L 300.3900, L300.4310 ####[facility] [address] [place], [address] Prothrombin Time w/INRon INR Coag (PPP) [Relative time] 1.0 {INR} Normal [facility] Comment on above: Order Comment: REDRA W. PREVIOUS SPECIMEN REJECTED DUE TOHEMOLYSIS. 11/10/24 1351 Jolynn Matute. Performed By: #### L 300.3900, L300.4310 ####[facility] [address] [place], [address] PT Coag (PPP) [Time] 13.7 s Normal 11.7-14.9 [facility] Comment on above: Order Comment: LILY [place]. PREVIOUS SPECIMEN REJECTED DUE TOHEMOLYSIS. 11/10/24 135 Jolynn Matute. Performed By: #### L 300.3900, L300.4310 ####[facility] [address] [place], [address] INR Normal [facility] Comment on above: Result Comment: This specimen has been REJECTED due to Laboratory criteria: Hemolyzed. RY has been notified of need of recollection. 11/10/24 135 Jolynn Matute Performed By: #### L 501.4020, L500.2500, L300.3900, L100.0100 ####[facility] [address] [place], [address] PROTIME Normal 11.7-14.9 [facility] Comment on above: Result Comment: This specimen has been REJECTED due to Laboratory criteria: Hemolyzed. RY has been notified of need of recollection. 11/10/24 1351 Jolynn Matute Performed By: #### L 501.4020, L500.2500, L300.3900, L100.0100 ####[facility] [address] [place], [address] RESPIRATORY PANEL MOLECULARo n 11-10-2024 RP PANEL ADENOVIRUS Not Detected INFLUENZA A Not Detected INFLUENZA A (SUBTYPE H1) Not Detected INFLUENZA A (SUBTYPE H3) Not Detected INFLUENZA B Not Detected HUMAN METAPHNEUMO Not Detected PARAINFLUENZA 1 Not Detected PARAINFLUENZA 2 Not Detected PARAINFLUENZA 3 Not Detected PARAINFLUENZA 4 Not Detected RHINOVIRUS Not Detected RSV A Not Detected RSV B Not Detected Normal [facility] Comment on above: Performed By: #### M 100.638 #### [facility] Laboratory [address] [place], [address] STROKE Brain/Head without Co nton 11-10-2024 STROKE Brain/Head without Cont [facility] Imaging Services [address] [place], [place] [address] STROKE Brain/Head without Cont MR#: [id number] Acct: [id number] Name: MATTIE HERRON Rep #: [id number] : 1940 F 84 From: Roberto ocampo MD PCP: Dr. Matheus Fajardo MD Status: REG ER Study: STROKE Brain/Head without Cont Date of Exam: 0 11/10/24 Exam# [id number] Ordering Dr: Arleen Lord DO EXAM: CT [...] Dr. Fitzpatrick the referring physician. Reading Location: [place] [address] CC: Dr. Arleen Lord DO; Dr. Matheus Fajardo MD Community Organization Aide: Signed Normal [facility] STROKE CTA Head AND Neck W/C onon 11-10-2024 STROKE CTA Head AND Neck W/Con [facility] Imaging Services [address] [place] [address] STROKE CTA Head AND Neck W/Con MR#: [id number] Acct: [id number] Name: MATTIE HERRON Rep #: [id number] : 1940 F 84 From: Roberto ocampo MD PCP: Dr. Matheus Fajardo MD Status: REG ER Study: STROKE CTA Head AND Neck W/Con Date of Exam: 0 11/10/24 Exam# [id number] Ordering Dr: Arleen Lord DO PROCEDURE: STROKE [...] use of iterative reconstruction technique). Reading Location: [facility] CC: Dr. Arleen Lord DO; Dr. Matheus Fajardo MD Community Organization Aide: Signed Normal [facility] Urinalysis, Completeon 11-10 EPI,SQUAMOUS 0-5 SEEN Normal 5-10 [facility] Comment on above: Order Comment: COLLE CTOR TO SPECIFY Performed By: #### L 400.0001 ####[facility] [address] [place], [address] RBC 0-5 SEEN Normal 0-5 [facility] Comment on above: Order Comment: COLLE CTOR TO SPECIFY Performed By: #### L 400.0001 ####[facility] [address] [place], [address] BACTERIA 0 SEEN Normal None Seen [facility] Comment on above: Order Comment: JOAN CTOR TO SPECIFY Performed By: #### L 400.0001 ####[facility] [address] [place], [address] Mucus Ql (Urine sed) 0 SEEN Normal [facility] Comment on above: Order Comment: JOAN CTOR TO SPECIFY Performed By: #### L 400.0001 ####[facility] [address] [place], [address] WBC 0 SEEN Normal 0-5 [facility] Comment on above: Order Comment: JOAN CTOR TO SPECIFY Performed By: #### L 400.0001 ####[facility] [address] [place], [address] [id number] 09-15-2024 [id number] HNO ID: [id number] Author: HYACINTH SON PT, DPT Service: ? Author Type: Physical Therapist Type: [id number] Filed: 09/15/2024 11:12 Note Text: [facility] Physical Therapy Plan of Care Certification Patient Name: Mattie Herron : 1940 CCF #: [id number] Date: 09/13/2024 To: Matheus Fajardo MD From Therapist: Hyacinth Son PT, DPT RE: Patient Certification/ Recertification Your review, approval and electronic signature are required in order to comply with Payor: [employer] MEDICARE / Plan: [employer] HMO / Product Type: HMO / [...] -score by a minimum of 5 points. [place] in home exercise program. Patient will demonstrate [...] Planned: 4 Planned Treatment Interventions: Therapeutic exercise (30256), Neuromuscular re-education (99196), Gait Training (35633), Self-group home management (55475), Patient/Family/Caregiver Education PLAN FOR NEXT VISIT: review [...] reviewed the treatment plan for Mattie Herron, PSYCHIATRIC# [id number] for the period of -- , established on 09/13/2024. Signature certifies the need for therapy services. [facility] CNTHERAPYon 09-13-2024 CNTHERAPY OT/PT/Speech Visit ( PTMDRG) GOPALMATTIE Grisel ([id number]) 1940 F Date Time Provider Department 09/13/24 3:00 PM HYACINTH SON PTMDRG Date Time Provider Department Center 09/13/2024 3:00 PM [id number] SON PTMDRG [facility] Reason for Visit: PT Eval [747] [...] - ASPIRIN 81 MG TAB once daily Outpatient Phlebotomist: Therapy (PT/OT/Speech/Resp) ID: [id number] 09/13/2024 3:49 PM Author: HYACINTH SON Signed by HYACINTH SON PT, DPT on 09/13/2024 at 3:49 PM Document text: Program_ID:[id number] Access Code: [email or web address] URL: [email or web address] Date: 09-13-2024 Prepared By: Hyacinth Son Program [...] 1 sets - 5 reps ---- Normal [facility] THERAPY NTon 09-13-2024 THERAPY NT HNO ID: [id number] Author: HYACINTH SON, PT, DPT Service: Physical Therapy Author Type: Physical Therapist Type: Therapy (PT/OT/Speech/Resp) Filed: 09/13/2024 15:49 Note Text: Program_ID:[id number] Access Code: [email or web address] URL: [email or web address] Date: 09-13-2024 Prepared By: Hyacinth Son Program [...] - 1 sets - 5 reps [facility] ([facility] ) MATTIE HERRON ([id number]) 1940 F Date Time Provider Department 08/24/24 [...] Neurologic Exam: She is alert. Reg 3/ [facility], , Tue x, age 84, WORLD -> [...] 7.8, B12 (more content not included)... Normal [facility] ALBUMIN/CREATININE RATIO, UR INEon 08-22-2024 Albumin DL <= 20 mg/L (U) [Mass/Vol] mg/dL Normal [facility] Comment on above: Order Comment: Speci men Type: URINE SPECIMENOrdering Facility: [facility] Address: [address] [place] [address] Performed By: #### U ACR ####[facility] LABCLIA [id number] [place] [address] [place] Albumin/Creatinine (U) [Mass ratio] <11 Normal <30 [facility] Comment on above: Order Comment: Speci men Type: URINE SPECIMENOrdering Facility: [facility] Address: [address] [place] [address] Result Comment: Adul t Male and Female Nephrotic Criteria: <30 mg/g is considered normal to mildly increased 30-300 mg/g is considered moderately increased >300 mg/g is considered severely increased KDIGO. (2013). KDIGO 2012 Clinical Practice Guideline for the Evaluation and Management of Chronic Kidney Disease. Official Journal of the International Society of Nephrology, 3(1), 1-150. Performed By: #### U ACR ####[facility] LABCLIA [id number] [place] [address] [place] Creatinine (U) [Mass/Vol] 112.7 mg/dL Normal 20.0-300.0 [facility] Comment on above: Order Comment: Speci men Type: URINE SPECIMENOrdering Facility: [facility] Address: [address] [place] [address] Performed By: #### U ACR ####[facility] LABCLIA [id number] [place] [id number] [place] Basic metabolic 2000 panelon 11-25-2024 Anion gap [Moles/Vol] 10 mmol/L Normal 8-15 [facility] Comment on above: Order Comment: Speci men Type: BLOOD SPECIMENOrdering Facility: [facility] Address: [address] [place] [address] Performed By: #### 2 4321-2, 9, 6-3, 302-7 ####[facility] LABCLIA [id number] [facility] [place] [address] [place] Calcium [Mass/Vol] 9.8 mg/dL Normal 8.5-10.2 [facility] Comment on above: Order Comment: Speci men Type: BLOOD SPECIMENOrdering Facility: [facility] Address: [address] [place] [address] Performed By: #### 2 4321-2, 2132-05, 3015-3, 3023-7 ####[facility] LABCLIA [id number] [place] [address] [place] Chloride [Moles/Vol] 104 mmol/L Normal 98-107 [facility] Comment on above: Order Comment: Speci men Type: BLOOD SPECIMENOrdering Facility: [facility] Address: [address] [place] [address] Performed By: #### 2 4321-2, 9, 3015-3, 3023-7 ####[facility] LABCLIA [id number] [place] [id number] [place] CO2 [Moles/Vol] 29 mmol/L Normal 22-30 [facility] Comment on above: Order Comment: Speci men Type: BLOOD SPECIMENOrdering Facility: [facility] Address: [address] [place] [address] Performed By: #### 2 4321-2, 9, 3015-3, 302-7 ####[facility] LABCLIA [id number] [facility] [place] [id number] [place] Creatinine [Mass/Vol] 1.01 mg/dL High 0.58-0.96 [facility] Comment on above: Order Comment: Stella johnson Type: BLOOD SPECIMENOrdering Facility: [facility] Address: [address] [place] [id number] Performed By: #### 2 4321-2, 2131-9, 6-3, 3024-7 ####[facility] LABCLIA [id number] [place] [address] [place] Creatinine and Glomerular filtration rate.predicted panel (S/P/Bld) 55 mL/min/1.73m??? Low >=60 [facility] Comment on above: Order Comment: Stella johnson Type: BLOOD SPECIMENOrdering Facility: [facility] Address: [address] [place] [address] Result Comment: Bryanna mated Glomerular Filtration Rate [...] By: #### 2 4321-2, 9, 6-3, 7 ####[facility] LABCLIA [id number] [address] [address] [place] Glucose [Mass/Vol] 112 mg/dL High 74-99 [facility] Comment on above: Order Comment: Stella johnson Type: BLOOD SPECIMENOrdering Facility: [facility] Address: [address] [place] [address] Result Comment: The [place] Diabetes Association (ADA) provides guidance for cutoff [...] Standards of Medical Care in Diabetes 2016, [place] Diabetes Association. Diabetes Care. 2016.39(Suppl 1). Performed By: #### 2 4321-2, 9, 6-3, 7 ####[facility] LABCLIA [id number] [address] [address] [place] Potassium [Moles/Vol] 4.3 mmol/L Normal 3.7-5.1 [facility] Comment on above: Order Comment: Speci men Type: BLOOD SPECIMENOrdering Facility: [facility] Address: [address] [place] [address] Performed By: #### 2 432-2, 2132-05, 3015-3, 7 ####[facility] LABCLIA [id number] [place] [id number] [place] Sodium [Moles/Vol] 143 mmol/L Normal 136-144 [facility] Comment on above: Order Comment: Speci men Type: BLOOD SPECIMENOrdering Facility: [facility] Address: [address] [place] [address] Performed By: #### 2 432-2, 2132-05, 3015-3, 7 ####[facility] LABCLIA [id number] [place] [id number] [place] Urea nitrogen [Mass/Vol] 14 mg/dL Normal 7-21 [facility] Comment on above: Order Comment: Speci men Type: BLOOD SPECIMENOrdering Facility: [facility] Address: [address] [place] [address] Performed By: #### 2 4320-2, 2132-05, 3015-3, 7 ####[facility] LABCLIA [id number] [address] [address] [place] CBC panel Auto (Bld)on 08-22 Erythrocyte distribution width (RBC) [Ratio] 14.6 % Normal 11.5-15.0 [facility] Comment on above: Order Comment: Speci men Type: BLOOD SPECIMENOrdering Facility: [facility] Address: [address] [place] [address] Performed By: #### 5 8410-2 ####[facility] LABCLIA [id number] [place] [address] [place] Hematocrit (Bld) [Volume fraction] 49.5 % High 36.0-46.0 [facility] Comment on above: Order Comment: Speci men Type: BLOOD SPECIMENOrdering Facility: [facility] Address: [address] [place] [address] Performed By: #### 5 8410-2 ####[facility] LABIA [id number] [place] [address] [place] Hemoglobin (Bld) [Mass/Vol] 15.8 g/dL High 11.5-15.5 [facility] Comment on above: Order Comment: Speci men Type: BLOOD SPECIMENOrdering Facility: [facility] Address: [address] [place] [address] Performed By: #### 5 8410-2 ####[facility] LABIA [id number] [place] [address] [place] MCH (RBC) [Entitic mass] 28.6 pg Normal 26.0-34.0 [facility] Comment on above: Order Comment: Speci men Type: BLOOD SPECIMENOrdering Facility: [facility] Address: [address] [place] [address] Performed By: #### 5 8410-2 ####[facility] LABIA [id number] [place] [address] [place] MCHC (RBC) [Mass/Vol] 31.9 g/dL Normal 30.5-36.0 [facility] Comment on above: Order Comment: Speci men Type: BLOOD SPECIMENOrdering Facility: [facility] Address: [address] [place] [address] Performed By: #### 5 8410-2 ####[facility] LABCLIA [id number] [place] [address] [place] MCV (RBC) [Entitic vol] 89.5 fL Normal 80.0-100.0 [facility] Comment on above: Order Comment: Speci men Type: BLOOD SPECIMENOrdering Facility: [facility] Address: [address] [place] [address] Performed By: #### 5 8410-2 ####[facility] LABIA [id number] [place] [address] [place] Nucleated RBC (Bld) [#/Vol] 10*3/uL Normal <0.01 [facility] Comment on above: Order Comment: Speci men Type: BLOOD SPECIMENOrdering Facility: [facility] Address: [address] [place] [address] Performed By: #### 5 8410-2 ####[facility] LABIA [id number] [place] [address] [place] Platelet mean volume (Bld) [Entitic vol] 12.6 fL Normal 9.0-12.7 [facility] Comment on above: Order Comment: Speci men Type: BLOOD SPECIMENOrdering Facility: [facility] Address: [address] [place] [address] Performed By: #### 5 8410-2 ####[facility] LABCLIA [id number] [place] [address] [place] Platelets (Bld) [#/Vol] 146 10*3/uL Low 150-400 [facility] Comment on above: Order Comment: Speci men Type: BLOOD SPECIMENOrdering Facility: [facility] Address: [address] [place] [address] Performed By: #### 5 8410-2 ####[facility] LABCLIA [id number] [place] [address] [place] RBC (Bld) [#/Vol] 5.53 10*6/uL High 3.90-5.20 [facility] Comment on above: Order Comment: Speci men Type: BLOOD SPECIMENOrdering Facility: [facility] Address: [address] [place] [address] Performed By: #### 5 8410-2 ####[facility] LABIA [id number] [place] [address] [place] WBC (Bld) [#/Vol] 7.47 10*3/uL Normal 3.70-11.00 [facility] Comment on above: Order Comment: Speci men Type: BLOOD SPECIMENOrdering Facility: [facility] Address: [address] [place] [address] Performed By: #### 5 8410-2 ####[facility] LABIA [id number] [place] [address] [facility] [place] CNOVon 08-22-2024 CNOV Office Visit (INTMWS ) MATTIE HERRON ([id number]) 1940 F Date Time Provider Department 08/22/24 [...] Psychotic Disturbance, Mood Disturbance, Or Anxiety ([facility]) Cad S/P Percutaneous Coronary Angioplasty Pad (Peripheral Artery Disease) (Formerly [facility]) Nonrheumatic Aortic Valve Stenosis S/P Right Coronary Artery (Rca) Stent Placement 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 Normal [facility] HbA1c (Bld)on 08-22-2024 Average glucose Estimated from glycated hemoglobin (Bld) [Mass/Vol] 126 mg/dL Normal [facility] Comment on above: Order Comment: Speci men Type: BLOOD SPECIMENOrdering Facility: [facility] Address: [address] [place] [address] Result Comment: eAG: (Estimated average glucose) is a calculated value from HgbA1c and is loan representative of the average blood glucose level in the last 2-3 month period. Performed By: #### 5 5454-3 ####[facility] LABCLIA [id number] [place] [address] [place] HbA1c (Bld) [Mass fraction] 6.0 % High 4.3-5.6 [facility] Comment on above: Order Comment: Speci men Type: BLOOD SPECIMENOrdering Facility: [facility] Address: [address] [place] [address] Result Comment: Amer [place] Diabetes Association guidelines indicate that patients with HgbA1c in the range 5.7-6.4% are at increased risk for development of diabetes, and intervention by lifestyle modification may be beneficial. HgbA1c greater or equal to 6.5% is considered diagnostic of diabetes. Performed By: #### 5 5454-3 ####[facility] LABCLIA [id number] [place] [address] [place] Methylmalonate SerPl-sCncon 08-22-2024 Methylmalonate [Moles/Vol] 0.21 umol/L Normal <=0.40 [facility] Comment on above: Order Comment: Sidrai alex Type: BLOOD SPECIMENOrdering Facility: [facility] Address: [address] [place] [address] Result Comment: This test was developed, and its performance characteristics determined by the [facility] Department of Pathology and Laboratory Medicine. It has not been cleared or approved by the FDA. The [facility] Department of Pathology and Laboratory Medicine is regulated under CLIA as qualified to perform high-complexity testing. This test is used for clinical purposes. It should not be regarded as investigational or for research. Performed By: #### 1 3964-2 ####[facility] LABCLIA [id number] [place] [address] [place] T4 Free SerPl-mCncon 024 Free T4 [Mass/Vol] 1.2 ng/dL Normal 0.9-1.7 [facility] Comment on above: Order Comment: Speci men Type: BLOOD SPECIMENOrdering Facility: [facility] Address: [address] [place] [address] Performed By: #### 2 4321-2, 2-9, 3016-3, 3024-7 ####[facility] LABCLIA [id number] [place] [address] [place] TSH SerPl-aCncon 08-22-2024 TSH Qn 3.500 m[IU]/L Normal 0.270-4.20 0 [facility] Comment on above: Order Comment: Speci men Type: BLOOD SPECIMENOrdering Facility: [facility] Address: [address] [place] [address] Performed By: #### 2 4321-2, 2131-9, 6-3, 3024-7 ####[facility] LABCLIA [id number] [place] [address] [place] Vit B12 SerPl-mCncon 024 Cobalamin (Vitamin B12) [Mass/Vol] 800 pg/mL Normal 232-1245 [facility] Comment on above: Order Comment: Speci men Type: BLOOD SPECIMENOrdering Facility: [facility] Address: [address] [place] [address] Performed By: #### 2 4321-2, 2131-9, 6-3, 302-7 ####[facility] LABIA [id number] [place] [id number] [place] ECHOon 06-02-2024 Echocardiography Echocardiography Rep ort: Transthoracic Echo [facility] Date of service: 06/02/2024 11:36:22 AM OF [employer] Ordering physician: ELVIRA GUNTER Indication: CAD Technologist: Yolie Sparks [facility] Interpreting physician: Elvira Gunter DO [...] * * * Final * * * [employer] : [id number] micsSISUID Normal [facility] metabolic 2000 panelon 02-18-2024 Albumin [Mass/Vol] 4.1 g/dL 3.9 - 4.9 g/dL [facility] ALP [Catalytic activity/Vol] 76 U/L 34 - 123 U/L [facility] ALT [Catalytic activity/Vol] 16 U/L 7 - 38 U/L [facility] Anion gap [Moles/Vol] 11 mmol/L 9 - 18 mmol/L [facility] AST [Catalytic activity/Vol] 20 U/L 13 - 35 U/L [facility] Bilirubin [Mass/Vol] 0.5 mg/dL 0.2 - 1.3 mg/dL [facility] Calcium [Mass/Vol] 9.6 mg/dL 8.5 - 10. 2 mg/dL [facility] Chloride [Moles/Vol] 106 mmol/L High 97 - 105 mmol/L [facility] CO2 [Moles/Vol] 26 mmol/L 22 - 30 mmol/L [facility] Creatinine [Mass/Vol] 1.03 mg/dL High 0.58 - 0.96 mg/dL [facility] GFR/1.73 sq M.predicted among non-blacks MDRD (S/P/Bld) [Vol rate/Area] 53 mL/min/{1.73_m2} Low - PINF [facility] Comment on above: Estimated Glomerular Filtration [...] 121 mg/dL High 74 - 99 mg/dL [facility] Comment on above: The [place] Diabete s Association (ADA) provides guidance for [...] Standards of Medical Care in Diabetes 2016, [place] Diabetes Association. Diabetes Care. 2016.39(Suppl 1). Potassium [Moles/Vol] 4.4 mmol/L 3.7 - 5.1 mmol/L [facility] Protein [Mass/Vol] 6.6 g/dL 6.3 - 8.0 g/dL [facility] Sodium [Moles/Vol] 143 mmol/L 136 - 144 mmol/L [facility] Urea nitrogen [Mass/Vol] 12 mg/dL 7 - 21 mg/dL [facility] HbA1c (Bld)Ordered By: Dalia Dumont on 02-18-2024 Average glucose Estimated from glycated hemoglobin (Bld) [Mass/Vol] 134 mg/dL [facility] Comment on above: eAG: (Estimated aver age glucose) is a calculated value from HgbA1c and is loan representative of the average blood glucose level in the last 2-3 month period. HbA1c (Bld) [Mass fraction] 6.3 % High 4.3 - 5.6 % [facility] Comment on above: [place] Diabetes As sociation guidelines indicate that patients with HgbA1c in the range 5.7-6.4% are at increased risk for development of diabetes, and intervention by lifestyle modification may be beneficial. HgbA1c greater or equal to 6.5% is considered diagnostic of diabetes. Interpretation and review of laboratory results Abnormal [facility] Lipid 1996 panelon 4 Cholesterol [Mass/Vol] 157 mg/dL NINF - 200 mg/dL [facility] Comment on above: <200 mg/dL, Desirabl e 200-239 mg/dL, Borderline high >239 mg/dL, High Cholesterol in HDL [Mass/Vol] 43 mg/dL 39 - PINF mg/dL [facility] Comment on above: 40-59 mg/dL, Accepta ble >59 mg/dL, High: Negative risk factor for coronary heart disease <40 mg/dL, Low: Positive risk factor for coronary heart disease Cholesterol in LDL [Mass/Vol] 79 mg/dL NINF - 100 mg/dL [facility] Comment on above: <100 mg/dL, Optimal 100-129 mg/dL, Near optimal/above optimal 130-159 mg/dL, Borderline high 160-189 mg/dL, High >189 mg/dL, Very high Secondary prevention optimal LDL Cholesterol levels are recommended to be < 70 mg/dL Cholesterol in LDL/Cholesterol in HDL [Mass ratio] 1.84 {ratio} NINF - 2.54 [facility] Comment on above: Reference: 1. National Cholesterol Education Program ATP III Guideline At-A-Glance Quick Desk Reference: National Heart, Lung, and Blood [employer]. National Institutes of Health. 2001: NIH Publication No. 01-3305. 2. An International Atherosclerosis Society position paper: global recommendations for the management of dyslipidemia: executive summary, Atherosclerosis. 2014: 232(2):410-413. Cholesterol in VLDL [Mass/Vol] 35 mg/dL High NINF - 30 mg/dL [facility] Cholesterol non HDL [Mass/Vol] 114 mg/dL NINF - 130 mg/dL [facility] Comment on above: <130 mg/dL, Optimal 130-159 mg/dL, Near optimal/above optimal 160-189 mg/dL, Borderline high 190-219 mg/dL, High >219 mg/dL, Very high Secondary prevention optimal non HDL Cholesterol levels are recommended to be <100 mg/dL Cholesterol.total/ Cholesterol in HDL [Mass ratio] 3.65 {ratio} NINF - 5.10 [facility] Fasting Time 14 hrs [facility] Triglyceride [Mass/Vol] 173 mg/dL High NINF - 150 mg/dL [facility] Comment on above: <150 mg/dL, Normal 150-199 mg/dL, Borderline high 200-499 mg/dL, High >499 mg/dL, Very high No Panel Informationon 02-17 Interpretation and review of laboratory results Abnormal [facility] EMG(NEURO/NI)on 12-27-2021 Outpatient Phlebotomist Results can be seen in attached scanned documents. If you are a patient reviewing this test result, call the doctor who ordered the test with any questions. [facility] CNOVon 09-15-2017 CNOV Office Visit (AGCARDWST) MATTIE SHAW ([id number]) 1940 [facility] Time Provider Cabhawgssg39/19/17 9:30 AM ANDRZEJ PRATER AGCARDWST During your [...] - metBeta christiano for ASHD with prior DE or prior LVEFANDlt;40 (NQF 0070) - metBeta [...] with treatment plan.This note was generated using Selatra voice recognition system, and there may besome [...] LDL was 85.Electronically Signed:CHERISE Huntleyecembmarcella 2016 9:52 [facility]: Cameron Jaramillo MD 09/15/2017 9:52 AM SignedLIFESTYLE [...] programs in your area.Referring Provider: MATHEUS FAJARDO [[id number]]Allergies As of Date: 09/15/2017 Noted Allergy ReactionBEE [...] W INTERP (MED OFFICE) [ECG06] Order #: [id number] as of 09/15/2017 Sig: CPAP CPAP mask [...] the following areas and commit to making prison changes. EAT A WHOLE FOOD, PLANT BASED [...] SmartForms filed during this visit:Extended VitalsEncounter Number: [id number] Status:Closed by ANDRZEJ PRATER MD on 09/15/17 [facility] PROGRESSon 09-15-2017 PROGRESS HNO ID: [id number] thor: Andrzej Chaudhary: (none)Author Type: PhysicianType: Progress NotesFiled: 09/15/2017 5:34 PMNote Text:PERTINENT CARDIAC HISTORYASHD - IMI, POBA 1988, PCI RCA 2003Carotid diseaseEdema - venous insufficiencyPVDAAA - stent 2004OSA - CPAPDMHTNHLTobaccoismADHERENCE TO GUIDELINESACE-I or ARB for HF with prior LVEF<40 (NQF 0081) - declinedASA or Plavix for ASHD (NQF 0067) - metBeta christiano for ASHD with prior DE or prior LVEF<40 (NQF 0070) - metBeta [...] with treatment plan.This note was generated using Selatra voice recognition system, and theremay be some [...] preference,tubing, filters, heated humidity, lifetime supplies. Dx: JL on CPAP.G47.33.atenolol (TENORMIN) 25 mg tablet Take [...] sugar diagnostic(FREESTYLE TEST STRIPS) Test daily as hkzieaiu475.00,ASPIRIN 81 MG TAB once dailyPHYSICAL EXAMINATION:VITAL SIGNS: [...] was 85.Electronically Signed:Andrzej Prater MDDecember 2016 9:52 [facility]: Matheus Fajardo MD [facility] Vital Signs Date Time Vital Sign Value Performing Clinician Facility 04-04-2025 14:22-0400 Body mass index (BMI) [Ratio] 26.38 kg/m2 Maribell Hill MD Work Phone: [facility] 04-04-2025 14:22-0400 Body weight 71.9 kg Maribell Hill MD Work Phone: [facility] 04-04-2025 14:22-0400 Diastolic blood pressure 70 mm[Hg] Maribell Hill MD Work Phone: [facility] 04-04-2025 14:22-0400 Heart rate 61 /min aMribell Hill MD Work Phone: [facility] 04-04-2025 14:22-0400 SaO2% (BldA) [Mass fraction] 96 % Maribell Hill MD Work Phone: [facility] 04-04-2025 14:22-0400 Systolic blood pressure 112 mm[Hg] Maribell Hill MD Work Phone: [facility] 03-21-2025 13:31-0400 Body height 170.[address] Matheus Fajardo MD Work Phone: [facility] 03-21-2025 13:31-0400 Body mass index (BMI) [Ratio] 23.8 kg/m2 Dr. Matheus Fajardo MD Work Phone: [facility] 03-21-2025 13:31-0400 Body temperature 98 [degF] Dr. Matheus Fajardo MD Work Phone: 4(653)[phone] [place] [address] 03-21-2025 13:31-0400 Body weight 68.[address] Matheus Fajardo MD Work Phone: 6(495)467-808537 [place] [address] 03-21-2025 13:31-0400 Diastolic blood pressure 68 mm[Hg] Dr. Matheus Fajardo MD Work Phone: 9(591)731-213937 [place] [address] 03-21-2025 13:31-0400 Heart rate 77 /min Dr. Matheus Fajardo MD Work Phone: 8(157)319-430437 [place] [address] 03-21-2025 13:31-0400 Respiratory rate 16 /min Dr. Matheus Fajardo MD Work Phone: 2(819)496-994537 [place] [address] 03-21-2025 13:31-0400 SaO2% (BldA) [Mass fraction] 94 % Dr. Matheus Fajardo MD Work Phone: 8([phone])[phone] [place] [address] 03-21-2025 13:31-0400 Systolic blood pressure 114 mm[Hg] Dr. Matheus Fajardo MD Work Phone: 4(482)[phone] [place] [address] 03-14-2025 14:23-0400 Body mass index (BMI) [Ratio] 25.61 kg/m2 Thea Swank [employer] Work Phone: [facility] 03-14-2025 14:23-0400 Body weight 69.8 kg Thea Swank [employer] Work Phone: [facility] 03-14-2025 14:23-0400 Diastolic blood pressure 70 mm[Hg] Thea Swank [employer] Work Phone: [facility] 03-14-2025 14:23-0400 Heart rate 76 /min Thea Swank [employer] Work Phone: [facility] 03-14-2025 14:23-0400 Respiratory rate 18 /min Thea Swank [employer] Work Phone: [facility] 03-14-2025 14:23-0400 SaO2% (BldA) [Mass fraction] 93 % Thea Swank [employer] Work Phone: [facility] 03-14-2025 14:23-0400 Systolic blood pressure 122 mm[Hg] Thea Swank [employer] Work Phone: [facility] 02-27-2025 10:19-0400 Body mass index (BMI) [Ratio] 25.94 kg/m2 Tram Santana MD Work Phone: [facility] 02-27-2025 10:19-0400 Body weight 70.7 kg Tram Santana MD Work Phone: [facility] 02-27-2025 10:19-0400 Diastolic blood pressure 56 mm[Hg] Tram Santana MD Work Phone: [facility] 02-27-2025 10:19-0400 Heart rate 51 /min Tram Santana MD Work Phone: [facility] 02-27-2025 10:19-0400 SaO2% (BldA) [Mass fraction] 97 % Tram Santana MD Work Phone: [facility] 02-27-2025 10:19-0400 Systolic blood pressure 123 mm[Hg] Tram Santana MD Work Phone: [facility] 02-23-2025 09:00-0400 Body height 165.1 cm Matheus Fajardo MD Work Phone: [facility] 02-23-2025 09:00-0400 Body mass index (BMI) [Ratio] 25.53 kg/m2 Matheus Fajardo MD Work Phone: [facility] 02-23-2025 09:00-0400 Body weight 69.6 kg Matheus Fajardo MD Work Phone: [facility] 02-23-2025 09:00-0400 Diastolic blood pressure 58 mm[Hg] Matheus Fajardo MD Work Phone: [facility] 02-23-2025 09:00-0400 Heart rate 60 /min Matheus Fajardo MD Work Phone: [facility] 02-23-2025 09:00-0400 Respiratory rate 18 /min Matheus Fajardo MD Work Phone: [facility] 02-23-2025 09:00-0400 Systolic blood pressure 100 mm[Hg] Matheus Fajardo MD Work Phone: [facility] 01-18-2025 10:28-0400 Body mass index (BMI) [Ratio] 23.96 kg/m2 Loraine Moomaw B[employer] Work Phone: [facility] 01-18-2025 10:28-0400 Body temperature 99.3 [degF] Loraine Moomaw [employer] Work Phone: [facility] 01-18-2025 10:28-0400 Body weight 69.4 kg Loraine Moomaw [employer] Work Phone: [facility] 01-18-2025 10:28-0400 Diastolic blood pressure 68 mm[Hg] Loraine Moomaw [employer] Work Phone: [facility] 01-18-2025 10:28-0400 Heart rate 70 /min Loraine Moomaw B[employer] Work Phone: [facility] 01-18-2025 10:28-0400 Respiratory rate 18 /min Loraine Moomaw B[employer] Work Phone: [facility] 01-18-2025 10:28-0400 SaO2% (BldA) [Mass fraction] 97 % Loraine Moomaw B[employer] Work Phone: [facility] 01-18-2025 10:28-0400 Systolic blood pressure 120 mm[Hg] Loraine Moomaw B[employer] Work Phone: [facility] 12-02-2024 15:47-0500 Body temperature 98 [degF] Dr. Matheus Fajardo MD Work Phone: [facility] 12-02-2024 15:47-0500 Body weight 69.[address] Matheus Fajardo MD Work Phone: [facility] 12-02-2024 15:47-0500 Diastolic blood pressure 66 mm[Hg] Dr. Matheus Fajardo MD Work Phone: [facility] 12-02-2024 15:47-0500 Heart rate 61 /min Dr. Matheus Fajardo MD Work Phone: [facility] 12-02-2024 15:47-0500 Respiratory rate 16 /min Dr. Matheus Fajardo MD Work Phone: [facility] 12-02-2024 15:47-0500 SaO2% (BldA) [Mass fraction] 95 % Dr. Matheus Fajardo MD Work Phone: [facility] 12-02-2024 15:47-0500 Systolic blood pressure 121 mm[Hg] Dr. Matheus Fajardo MD Work Phone: [facility] 11-14-2024 14:15-0500 Body mass index (BMI) [Ratio] 23.89 kg/m2 Matheus Fajardo MD Work Phone: [facility] 11-14-2024 14:15-0500 Body temperature 97.9 [degF] Matheus Fajardo MD Work Phone: [facility] 11-14-2024 14:15-0500 Body weight 69.2 kg Matheus Fajardo MD Work Phone: [facility] 11-14-2024 14:15-0500 Diastolic blood pressure 46 mm[Hg] Matheus Fajardo MD Work Phone: [facility] 11-14-2024 14:15-0500 Heart rate 64 /min Matheus Fajardo MD Work Phone: [facility] 11-14-2024 14:15-0500 Respiratory rate 20 /min Matheus Fajardo MD Work Phone: [facility] 11-14-2024 14:15-0500 Systolic blood pressure 86 mm[Hg] Matheus Fajardo MD Work Phone: [facility] 08-24-2024 10:25-0500 Body mass index (BMI) [Ratio] 24.58 kg/m2 Tram Santana MD Work Phone: [facility] 08-24-2024 10:25-0500 Body weight 71.2 kg Tram Santana MD Work Phone: [facility] 08-24-2024 10:25-0500 Diastolic blood pressure 72 mm[Hg] Tram Santana MD Work Phone: [facility] 08-24-2024 10:25-0500 Heart rate 64 /min Tram Santana MD Work Phone: [facility] 08-24-2024 10:25-0500 SaO2% (BldA) [Mass fraction] 96 % Tram Santana MD Work Phone: [facility] 08-24-2024 10:25-0500 Systolic blood pressure 146 mm[Hg] Tram Santana MD Work Phone: [facility] 08-22-2024 15:08-0500 Diastolic blood pressure 71 mm[Hg] Matheus Fajardo MD Work Phone: [facility] 08-22-2024 15:08-0500 Heart rate 67 /min Matheus Fajardo MD Work Phone: [facility] 08-22-2024 15:08-0500 Systolic blood pressure 123 mm[Hg] Matheus Fajardo MD Work Phone: [facility] 08-22-2024 14:58-0500 Body mass index (BMI) [Ratio] 24.58 kg/m2 Matheus Fajardo MD Work Phone: [facility] 08-22-2024 14:58-0500 Body temperature 97.81 [degF] Matheus Fajardo MD Work Phone: [facility] 08-22-2024 14:58-0500 Body weight 71.2 kg Matheus Fajardo MD Work Phone: [facility] 05-18-2024 14:52-0400 Body height 170.2 cm Elvira Gunter DO Work Phone: [facility] 05-18-2024 14:52-0400 Body mass index (BMI) [Ratio] 25.38 kg/m2 Elvira Gunter DO Work Phone: [facility] 05-18-2024 14:52-0400 Body weight 73.5 kg Elvira Gunter DO Work Phone: [facility] 05-18-2024 14:52-0400 Diastolic blood pressure 58 mm[Hg] Elvira Gunter DO Work Phone: [facility] 05-18-2024 14:52-0400 Heart rate 62 /min Elvira Gunter DO Work Phone: [facility] 05-18-2024 14:52-0400 SaO2% (BldA) [Mass fraction] 95 % Elvira Gunter DO Work Phone: [facility] 05-18-2024 14:52-0400 Systolic blood pressure 112 mm[Hg] Elvira Gunter DO Work Phone: [facility] 04-27-2024 13:55-0400 Body height 167.6 cm Tram Santana MD Work Phone: [facility] 04-27-2024 13:55-0400 Body mass index (BMI) [Ratio] 27.15 kg/m2 Tram Santana MD Work Phone: [facility] 04-27-2024 13:55-0400 Body weight 76.3 kg Tram Santana MD Work Phone: [facility] 04-27-2024 13:55-0400 Diastolic blood pressure 69 mm[Hg] Tram Santana MD Work Phone: [facility] 04-27-2024 13:55-0400 Heart rate 63 /min Tram Santana MD Work Phone: [facility] 04-27-2024 13:55-0400 SaO2% (BldA) [Mass fraction] 96 % Tram Santana MD Work Phone: [facility] 04-27-2024 13:55-0400 Systolic blood pressure 117 mm[Hg] Tram Santana MD Work Phone: [facility] 03-09-2024 13:05-0400 Body height 167.6 cm Marisa Pito B[employer] CHECKER.[employer] Work Phone: [facility] 03-09-2024 13:05-0400 Body mass index (BMI) [Ratio] 26.76 kg/m2 Marisa Pito B[employer] CHECKER[employer] Work Phone: [facility] 03-09-2024 13:05-0400 Body temperature 97.59 [degF] Marisa Pito B[employer]ER[employer] Work Phone: [facility] 03-09-2024 13:05-0400 Body weight 75.21 kg Marisa Pito B[employer] CHECKER.[employer] Work Phone: [facility] 03-09-2024 13:05-0400 Diastolic blood pressure 76 mm[Hg] Marisa Pito B[employer] CHECKER[employer] Work Phone: [facility] 03-09-2024 13:05-0400 Heart rate 72 /min Marisa Pito B[employer] CHECKER.[employer] Work Phone: [facility] 03-09-2024 13:05-0400 SaO2% (BldA) [Mass fraction] 95 % Marisa Pito B[employer] CHECKER[employer] Work Phone: [facility] 03-09-2024 13:05-0400 Systolic blood pressure 122 mm[Hg] Marisa Pito B[employer] CHECKER[employer] Work Phone: [facility] 02-18-2024 09:41-0400 Body height 167.6 cm Matheus Fajardo MD Work Phone: [facility] 02-18-2024 09:41-0400 Body mass index (BMI) [Ratio] 26.31 kg/m2 Matheus Fajardo MD Work Phone: [facility] 02-18-2024 09:41-0400 Body temperature 98.1 [degF] Matheus Fajardo MD Work Phone: [facility] 02-18-2024 09:41-0400 Body weight 73.94 kg Matheus Fajardo MD Work Phone: [facility] 02-18-2024 09:41-0400 Diastolic blood pressure 72 mm[Hg] Matheus Fajardo MD Work Phone: [facility] 02-18-2024 09:41-0400 Heart rate 60 /min Matheus Fajardo MD Work Phone: [facility] 02-18-2024 09:41-0400 Respiratory rate 20 /min Matheus Fajardo MD Work Phone: [facility] 02-18-2024 09:41-0400 Systolic blood pressure 120 mm[Hg] Matheus Fajardo MD Work Phone: [facility] 02-03-2023 10:02-0400 Body temperature 97.81 [degF] Oswaldo Woods APRN.[employer] Work Phone: [facility] 02-03-2023 10:02-0400 Body weight 79.29 kg Oswaldo Woods B[employer] CHECKER.[employer] Work Phone: [facility] 02-03-2023 10:02-0400 Diastolic blood pressure 60 mm[Hg] Oswaldo Woods B[employer] CHECKER.[employer] Work Phone: [facility] 02-03-2023 10:02-0400 Heart rate 80 /min Oswaldo Woods B[employer] CHECKER.[employer] Work Phone: [facility] 02-03-2023 10:02-0400 Respiratory rate 18 /min Oswaldo Woods B[employer] CHECKER.[employer] Work Phone: [facility] 02-03-2023 10:02-0400 SaO2% (BldA) [Mass fraction] 95 % Oswaldo Woods B[employer] CHECKER.[employer] Work Phone: [facility] 02-03-2023 10:02-0400 Systolic blood pressure 122 mm[Hg] Oswaldo Woods APRN.[employer] Work Phone: [facility] 09-05-2022 15:25-0500 Body height 165.1 cm Matheus Fajardo MD Work Phone: [facility] 09-05-2022 15:25-0500 Body temperature 96.91 [degF] Matheus Fajardo MD Work Phone: [facility] 09-05-2022 15:25-0500 Body weight 75.75 kg Matheus Fajardo MD Work Phone: [facility] 09-05-2022 15:25-0500 Diastolic blood pressure 56 mm[Hg] Matheus Fajardo MD Work Phone: [facility] 09-05-2022 15:25-0500 Heart rate 75 /min Matheus Fajardo MD Work Phone: [facility] 09-05-2022 15:25-0500 Respiratory rate 14 /min Matheus Fajardo MD Work Phone: [facility] 09-05-2022 15:25-0500 SaO2% (BldA) [Mass fraction] 93 % Matheus Fajardo MD Work Phone: [facility] 09-05-2022 15:25-0500 Systolic blood pressure 116 mm[Hg] Matheus Fajardo MD Work Phone: [facility] 06-26-2022 15:31-0400 Body temperature 97.7 [degF] Matheus Fajardo MD Work Phone: [facility] 06-26-2022 15:31-0400 Body weight 75.66 kg Matheus Fajardo MD Work Phone: [facility] 06-26-2022 15:31-0400 Diastolic blood pressure 66 mm[Hg] Matheus Fajardo MD Work Phone: [facility] 06-26-2022 15:31-0400 Heart rate 60 /min Matheus Fajardo MD Work Phone: [facility] 06-26-2022 15:31-0400 Respiratory rate 16 /min Matheus Fajardo MD Work Phone: [facility] 06-26-2022 15:31-0400 Systolic blood pressure 112 mm[Hg] Matheus Fajardo MD Work Phone: [facility] 03-27-2022 10:29-0400 Body height 167.[address] Matheus Fajardo Work Phone: [facility] Work Phone: 03-27-2022 10:29-0400 Body mass index (BMI) [Ratio] 25.7 kg/m2 Dr. Matheus Fajardo Work Phone: [facility] Work Phone: 03-27-2022 10:29-0400 Body weight 72.[address] Matheus Fajardo Work Phone: [facility] Work Phone: 03-27-2022 10:29-0400 Diastolic blood pressure 74 mm[Hg] Dr. Matheus Fajardo Work Phone: [facility] Work Phone: 03-27-2022 10:29-0400 Heart rate 60 /min Dr. Matheus Fajardo Work Phone: [facility] Work Phone: 03-27-2022 10:29-0400 Respiratory rate 18 /min Dr. Matheus Fajardo Work Phone: [facility] Work Phone: 03-27-2022 10:29-0400 Systolic blood pressure 132 mm[Hg] Dr. Matheus Fajardo Work Phone: [facility] Work Phone: 03-24-2022 13:33-0400 Body temperature 97.5 [degF] Matheus Fajardo MD Work Phone: [facility] 03-24-2022 13:33-0400 Body weight 71.67 kg Matheus Fajardo MD Work Phone: [facility] 03-24-2022 13:33-0400 Diastolic blood pressure 62 mm[Hg] Matheus Fajardo MD Work Phone: [facility] 03-24-2022 13:33-0400 Heart rate 56 /min Matheus Fajardo MD Work Phone: [facility] 03-24-2022 13:33-0400 Respiratory rate 16 /min Matheus Fajardo MD Work Phone: [facility] 03-24-2022 13:33-0400 Systolic blood pressure 110 mm[Hg] Matheus Fajardo MD Work Phone: [facility] Encounters Encounter Date Encounter Type Care Provider Facility Start: 05-23-2025 End: 05-23-2025 Telephone encounter Matheus Fajardo MD Work Phone: [facility] [place] Comment on above: requesting medicatio n that is Start: 04-18-2025 End: 04-18-2025 Refill Matheus Fajardo MD Work Phone: [facility] [place] Comment on above: Refill Request Start: 04-04-2025 End: 04-04-2025 Patient encounter procedure Maribell Hill MD Work Phone: Cardiology Comment on above: Coronary artery dise ase due to lipid rich plaque (Primary Dx); PVD (peripheral vascular disease); Mitral regurgitation and aortic stenosis; Bilateral carotid artery stenosis; Abdominal aortic aneurysm (AAA) without rupture, unspecified part; Smoker Start: 04-04-2025 End: 04-04-2025 ambulatory MARIBELL SERGIO Facility:[facility] Start: 04-04-2025 End: 04-05-2025 Telephone encounter Maribell Hill MD Work Phone: Cardiology Start: 03-26-2025 ambulatory [facility] Facility: [facility] Start: 03-21-2025 End: 03-21-2025 Patient encounter procedure Susan Glass RADIO COMMENTATOR-C -[facility] Work Phone: Start: 03-21-2025 End: 03-21-[address] Matheus Fajardo MD Work Phone: [facility] Work Phone: Start: 03-14-2025 End: 03-14-2025 Subsequent hospital visit by physician Xr [facility] Work Phone: Radiology Comment on above: Contusion of knee, u nspecified laterality, initial encounter [S80.00XA] Start: 03-14-2025 End: 03-14-2025 Patient encounter procedure Theaimelda Cordoba APRN.[employer] Work Phone: [facility] Comment on above: Fall, initial encoun ter (Primary Dx); Contusion of knee, unspecified laterality, initial encounter; Contusion of right hand, initial encounter; Contusion of dorsum of right hand; Skin tear of right hand without complication, initial encounter Start: 03-14-2025 End: 03-14-2025 ambulatory MATHEUS FAJARDO Facility:[facility] Start: 03-04-2025 End: 03-07-2025 ambulatory Tram Santana MD Work Phone: Neurology Comment on above: Seizure meds Start: 03-02-2025 End: 03-02-2025 Follow-up encounter Matheus Fajardo MD Work Phone: [facility] [place] Start: 03-02-2025 End: 03-02-2025 ambulatory TRAM SANTANA Facility:[id number] Start: 02-27-2025 End: 02-27-2025 Patient encounter procedure Tram Santana MD Work Phone: Neurology Comment on above: Moderate dementia wi thout behavioral disturbance, psychotic disturbance, mood disturbance, or anxiety, unspecified dementia type (HCC) (Primary Dx); Sensory ataxia; Other polyneuropathy; Seizure-like activity (HCC); Parkinsonism, unspecified Parkinsonism type (HCC) Start: 02-27-2025 End: 02-27-2025 ambulatory TRAM SANTANA Facility:[facility] Start: 02-23-2025 End: 02-23-2025 ambulatory MATHEUS FAJARDO Facility:[facility] Start: 02-23-2025 End: 02-23-2025 Patient encounter [...] Start: 01-21-2025 End: 01-21-2025 ambulatory ANDRIA BOSTON Facility:[facility] Start: 01-18-2025 End: 01-18-2025 Telephone encounter Loraine Swift APRN.CNP Work Phone: [facility] Comment on above: Results Start: 01-18-2025 End: 01-18-2025 Office outpatient visit 25 minutes Loraine Swift APRN.CNP Work Phone: [facility] Comment on above: Acute cough (Primary Dx) Start: 01-18-2025 End: 01-18-2025 ambulatory MATHUES FAJARDO Facility:[facility] Start: 12-02-2024 End: 12-02-2024 Patient encounter procedure Laura ROJAS -[facility] Work Phone: Start: 12-02-2024 End: 12-02-2024 ambulatory Matheus Fajardo Facility:[facility] Start: 11-20-2024 End: 11-20-2024 Emergency department patient visit Matheus Fajardo Facility:[facility] Start: 11-14-2024 End: 11-14-2024 ambulatory MATHEUS FAJARDO Facility:[facility] Start: 11-14-2024 End: 11-14-2024 Patient encounter procedure Matheus Fajardo MD Work Phone: [facility] [place] Comment on above: TIA (transient ische galo attack) (Primary Dx); 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; Meningioma (HCC); 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 behavioral disturbance, psychotic disturbance, mood disturbance, or anxiety, unspecified dementia type (HCC); Bilateral carotid artery stenosis; Influenza Start: 11-11-2024 ambulatory Arcelia Ambrocio cility:[facility] Start: 11-10-2024 End: 11-11-2024 ambulatory Lennie Jameson Facility:[facility] Start: 10-31-2024 End: 10-31-2024 Refill Matheus Fajardo MD Work Phone: [facility] [place] Comment on above: Refill Request Start: 10-04-2024 End: 10-04-2024 E-mail encounter from caregiver Evlira Burnham Radha DO Work Phone: Cardiology Start: 10-04-2024 End: 10-04-2024 Patient encounter procedure Elvira Tej Gunter DO Work Phone: Cardiology Comment on above: Appointment Start: 09-19-2024 End: 09-20-2024 Refill Matheus Fajardo MD Work Phone: [facility] [place] Comment on above: Refill Request Start: 09-13-2024 End: 09-13-2024 Patient encounter procedure Hyacinth Son PT, [facility] Comment on above: Moderate dementia wi thout behavioral disturbance, psychotic disturbance, mood disturbance, or anxiety, unspecified dementia type (HCC); 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 (HCC); Gait abnormality Start: 09-13-2024 End: 09-13-2024 ambulatory Hyacinth Son PT [facility] Start: 08-24-2024 End: 08-24-2024 ambulatory TRAM SANTANA Facility:[facility] Start: 08-24-2024 End: 08-24-2024 Patient encounter procedure Tram Santana MD Work Phone: Neurology Comment on above: Moderate dementia wi thout behavioral disturbance, psychotic disturbance, mood disturbance, or anxiety, unspecified dementia type (HCC) (Primary Dx); Parkinsonism, unspecified Parkinsonism type (HCC); Sensory ataxia; Other polyneuropathy; B12 deficiency Start: 08-22-2024 End: 08-22-2024 ambulatory MATHEUS FAJARDO Facility:[facility] Start: 08-22-2024 End: 08-22-2024 Office outpatient visit 25 minutes Matheus Fajardo MD Work Phone: [facility] [place] Comment on above: 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) (Primary Dx); Nonrheumatic aortic valve stenosis; 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; 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 [...] 06-02-2024 End: 06-02-2024 ambulatory ELVIRA TEJ GUNTER Facility:[facility] Start: 05-18-2024 End: 05-18-2024 Patient encounter [...] Subsequent hospital visit by physician [facility] Work Phone: Radiology Comment on above: Osteoporosis, 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] Start: 05-02-2024 Telephone encounter Tram duncan MD Work Phone: Neurology Start: 04-30-2024 ambulatory Cookie morgan B[employer] Work Phone: [facility] [place] Comment on [...] Matheus parry MD Work Phone: [facility] [place] Comment on above: Refill Request Start: 03-09-2024 End: 03-09-2024 Patient encounter procedure Marisahitesh Sheldon B[employer] Work Phone: General Surgery Comment on above: Benign neoplasm of c olon, unspecified part of colon Start: 02-18-2024 Telephone encounter Matheus block MD Work Phone: [facility] [place] Start: 02-18-2024 End: 02-18-2024 Patient encounter procedure Matheus Fajardo MD Work Phone: [facility] [place] Comment on above: Medicare annual well ness visit, subsequent (Primary Dx); Mixed hyperlipidemia; Vitamin D deficiency; Polycythemia; 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); Osteoporosis, post-menopausal; Tremor, essential; Cognitive decline; 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; Benign neoplasm of colon, unspecified part of colon Start: 12-30-2023 Refill Matheus parry MD Work Phone: [facility] [place] Comment on above: Refill Request Start: 08-05-2023 Get Medical Advice Cookie guerra APRN.[employer] Work Phone: [facility] [place] Comment on above: Prilosec refill Start: 06-22-2023 Refill Matheus parry MD Work Phone: [facility] [place] Comment on above: Refill Request Start: 03-30-2023 Refill Matheus parry MD Work Phone: [facility] [place] Comment on above: Refill Request Start: 03-24-2023 Refill Matheus parry MD Work Phone: [facility] [place] Comment on above: Refill Request Start: 03-02-2023 Refill Matheus parry MD Work Phone: [facility] [place] Comment on above: Refill Request Start: 02-03-2023 Refill Matheus parry MD Work Phone: [facility] Start: 02-03-2023 End: 02-03-2023 Office outpatient visit 15 minutes Oswaldo Woods APRN.CNP Work Phone: [facility] Comment on above: Cellulitis of left e ar (Primary Dx) Start: 01-05-2023 Refill Matheus parry MD Work Phone: [facility] [place] Comment on above: Refill Request Start: 12-01-2022 Refill Matheus parry MD Work Phone: [facility] [place] Comment on above: Refill Request Start: 09-30-2022 Refill Matheus parry MD Work Phone: [facility] Comment on above: Refill Request; Refi ll Request Start: 09-08-2022 Telephone encounter Matheus block MD Work Phone: [facility] [place] Comment on above: Orders Start: 09-06-2022 Refill Matheus parry MD Work Phone: [facility] [place] Comment on above: Refill Request Start: 09-05-2022 End: 09-05-2022 Patient encounter procedure Matheus Fajardo MD Work Phone: [facility] [place] Comment on above: Urgency incontinence (Primary Dx); Anterior cervical lymphadenopathy; Mixed incontinence; Polycythemia; 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) Start: 08-25-2022 Telephone encounter Matheus block MD Work Phone: [facility] [place] Comment on above: Patient Update Start: 06-26-2022 End: 06-26-2022 Patient encounter procedure Matheus Fajardo MD Work Phone: [facility] [place] Comment on above: Anterior cervical ly mphadenopathy (Primary Dx); Mixed hyperlipidemia; Need for influenza vaccination; Gait abnormality; 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); Need for COVID-19 vaccine Start: 05-26-2022 Refill Matheus parry MD Work Phone: [facility] [place] Comment on above: Refill Request Start: 04-22-2022 Non-patient / Non-visit Dr. Emily Fajardo Work Phone: [facility] Start: 04-22-2022 End: 04-22-[address] Matheus Fajardo Work Phone: [facility] Start: 03-27-2022 End: 03-27-[address] Matheus Fajardo Work Phone: [facility] Start: 03-24-2022 End: 03-24-2022 Patient encounter procedure Matheus Fajardo MD Work Phone: [facility] Comment on above: Left leg pain (Prima ry Dx); Left leg weakness; Gait abnormality Start: 02-10-2022 Refill Matheus parry MD Work Phone: [facility] [place] Comment on above: Refill Request Start: 01-25-2022 ambulatory Kimberly aaron B[employer]ER.[employer] Work Phone: Neurology Comment on above: Gabapentin Dosing - Kami Herron Start: 01-09-2022 Refill Matheus parry MD Work Phone: [facility] Comment on above: Refill Request Start: 01-07-2022 End: 01-07-2022 ambulatory Kimberly Rothman B[employer] Work Phone: Neurology Comment on above: Left leg pain (Prima ry Dx); Recurrent falls; Left leg weakness; 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) Start: 01-07-2022 End: 01-07-2022 Telemedicine consultation with patient Kimberly Rothman B[employer] Work Phone: [facility] Start: 01-02-2022 Telephone encounter Manohar Millard MD [...] date Start: 03-16-2018 Ambulatory ANDRZEJ PRATER Facility :[facility] Start: 09-15-2017 End: 09-15-2017 Ambulatory ANDRZEJ Paramjit JOSI [facility] Procedures Date Procedure Procedure Detail Performing Clinician Start: 03-14-2025 Radex hand minimum 3 views Thea Cordoba [employer] Work Phone: Start: 01-18-2025 COVID & INFLUENZA A/ B & RSV PCR, ROUTINE Loraine Moomaw B[employer]ER.[employer] Work Phone: Start: 05-18-2024 Ecg routine ecg w/le ast 12 lds i&r only [facility] Provider Start: 05-18-2024 History of placement of stent for coronary artery disease S/P right coronary artery (RCA) stent placement Elvira Gunter DO Work Phone: Start: 02-18-2024 Adult depression screening assessment Tram Santana MD Work Phone: Start: 06-26-2022 Radionomy COVI D-19 BIVALENT BOOSTER VACCINE, AGE 12+ YR Matheus Fajardo MD Work Phone: Start: 06-26-2022 INFLUENZA SEASONAL QUADRIVALENT HIGH DOSE AGE 65+ Matheus Fajardo MD Work Phone: Start: 12-27-2021 Nerve conduction jamal dies 5-6 studies Manohar Millard MD Work Phone: Plan of Treatment Date Care Activity Detail Author Start: 05-05-2026 Screening for osteoporosis Bone Density Screening [facility] Start: 02-23-2026 Covid-19 Vaccine ( season) Covid-19 Vaccine () [facility] Comment on above: Postponed from 01/25 (Declined at this time) Start: 02-23-2026 Hepatitis B surface antibody level LDL Cholesterol [facility] Start: 08-29-2025 End: 08-29-2025 Patient encounter procedure 08/29/2025 8:30 AM EST Office Visit Neurology [address] [place] [address] Dali Regalado PA-C [address] [place], [place] [id number] 6 month follow up Neurology Comment on above: 6 month follow up Start: 08-26-2025 Hemoglobin A1c measurement HbA1C [facility] Start: 08-22-2025 Diabetic foot examination Diabetic F oot Exam [facility] Start: 08-22-2025 Hepatitis B screening Urine Al bumin:Creatinine Ratio [facility] Start: 08-22-2025 End: 08-22-2025 Patient encounter procedure 08/22/2025 11:40 AM EST Office Visit Internal Medicine [place] [address] [place], [place] [id number] Matheus Fajardo MD [address] [place], [place] [phone] 6 month follow up Internal Medicine [place] Comment on above: 6 month follow up Start: 06-20-2025 End: 04-04-2026 Echocardiography ECHO Cardiology Routine Aortic valve stenosis, etiology of cardiac valve disease unspecified Expected: 06/20/2025, Expires: 04/04/2026 [facility] Work Phone: Comment on above: Expected: 06/20/2025 , Expires: 04/04/2026 Start: 05-29-2025 Influenza vaccination Influenza Vacc ine (#1) [facility] Start: 04-04-2025 End: 04-04-2025 Patient encounter procedure 04/04/2025 2:40 PM EDT Office Visit Cardiology [address] [address] Maribell Hill MD [address] [place] [address] follow up Cardiology Comment on above: follow up Start: 03-02-2025 End: 03-02-2025 Patient encounter procedure 03/02/2025 11:00 AM EDT Office Visit Neurology [address] [facility] [place] [address] 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 behavioral disturbance, psychotic disturbance, [...] 2000 panel - Serum or Plasma [facility] Work Phone: Comment on above: Expected: 02/23/2025 , Expires: 05/25/2025 Start: 02-23-2025 End: 05-25-2025 Hemoglobin A1c in Blood [facility] Comment on above: Expected: 02/23/2025 , Expires: 05/25/2025 Start: 02-23-2025 End: 05-25-2025 LIPID PANEL, NONFASTING [facility] Comment on above: Expected: 02/23/2025 , Expires: 05/25/2025 Start: 02-23-2025 End: 02-23-2025 Patient encounter procedure 02/23/2025 9:20 AM EDT Office Visit Internal Medicine [place] [address] [place] [address] Matheus Fajardo MD [address] [place] [address] annual/ 6 month follow up Internal Medicine [place] Comment on above: annual/ 6 month foll ow up Start: 02-19-2025 Hemoglobin A1c measurement HbA1C [facility] Start: 02-17-2025 Depression Screening Depression Scre ening [facility] Start: 02-17-2025 Hepatitis B surface antibody level LDL Cholesterol [facility] Start: 01-25-2025 Covid-19 Vaccine () Covid-19 Vaccine () [facility] Start: 12-28-2024 Glaucoma screening Dilated Retinal E xam [facility] Start: 12-16-2024 End: 12-16-2024 Patient encounter procedure 12/16/2024 2:00 PM EDT Office Visit Cardiology [address] [address] Elvira Gunter DO [address] [place] [address] 7 month follow up Cardiology Comment on above: 7 month follow up Start: 09-28-2024 Advance Directive Discussion Advance Directive Discussion [facility] Start: 09-13-2024 End: 09-13-2024 Patient encounter procedure 09/13/2024 3:00 PM EST OT/PT/Speech Visit [facility] [address] [place] [address] Hyacinth Son, PT, DPT [address] [place] [address] 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 behavioral disturbance, psychotic disturbance, mood disturbance, or anxiety, unspecified dementia type (HCC) [F03.B0]; 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 (HCC) [G20.A1]; Gait abnormality [R26.9] [facility] Comment on above: Moderate dementia wi thout behavioral disturbance, psychotic disturbance, mood disturbance, or anxiety, unspecified dementia type (HCC) [F03.B0]; 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 (HCC) [G20.A1]; Gait abnormality [R26.9] Start: 08-24-2024 End: 08-24-2024 Patient encounter procedure 08/24/2024 10:30 AM EST Office Visit Neurology [address] [place] [phone] Tram Santana MD [address] [place] [address] Four month follow up Neurology Comment on above: Four month follow up Start: 08-22-2024 End: 08-22-2024 Patient encounter procedure Internal Medicine [place] Comment on above: 6 month follow up 6 month follow up/de clined colonoscopy recall Start: 08-22-2024 End: 11-21-2024 Basic metabolic 2000 panel - Serum or Plasma [facility] Comment on above: Expected: 08/22/2024 , Expires: 11/21/2024 Start: 08-22-2024 End: 11-21-2024 CBC panel - Blood by Automated count [facility] Work Phone: Comment on above: Expected: 08/22/2024 , Expires: 11/21/2024 Start: 08-22-2024 End: 11-21-2024 Cobalamin (Vitamin B12) [Mass/volume] in Serum or Plasma [facility] Comment on above: Expected: 08/22/2024 , Expires: 11/21/2024 Start: 08-22-2024 End: 11-21-2024 Hemoglobin A1c in Blood [facility] Comment on above: Expected: 08/22/2024 , Expires: 11/21/2024 Start: 08-22-2024 End: 11-21-2024 Methylmalonate [Moles/volume] in Serum or Plasma [facility] Comment on above: Expected: 08/22/2024 , Expires: 11/21/2024 Start: 08-22-2024 End: 11-21-2024 Microalbumin/Creatinine [Mass Ratio] in Urine [facility] Comment on above: Expected: 08/22/2024 , Expires: 11/21/2024 Start: 08-22-2024 End: 11-21-2024 Thyrotropin [Units/volume] in Serum or Plasma [facility] Comment on above: Expected: 08/22/2024 , Expires: 11/21/2024 Start: 08-22-2024 End: 11-21-2024 Thyroxine (T4) free [Mass/volume] in Serum or Plasma [facility] Comment on above: Expected: 08/22/2024 , Expires: 11/21/2024 Start: 08-20-2024 Hemoglobin A1c measurement HbA1C [facility] Start: 07-07-2024 Covid-19 Vaccine () Covid-19 Vaccine () [facility] Comment on above: Postponed from 05/29 (Declined at this time) Start: 07-07-2024 Hepatitis B Vaccine (1 of 3 - Risk 3-dose series) Hepatitis B Vaccine (1 of 3 - Risk 3-dose series) [facility] Comment on above: Postponed from 01/12 (Declined at this time) Start: 07-03-2024 Hepatitis B screening Urine Al bumin:Creatinine Ratio [facility] Start: 07-03-2024 Hepatitis B surface antibody level LDL Cholesterol [facility] Start: 06-23-2024 3 comp foot exam completed Diabetic Foot Exam [facility] Start: 06-23-2024 Diabetic foot examination Diabetic F oot Exam [facility] Start: 05-29-2024 Covid-19 Vaccine ( season) Covid-19 Vaccine () [facility] Start: 05-29-2024 Influenza vaccination Influenza Vacc ine (#1) [facility] Start: 05-18-2024 End: 05-18-2024 Patient encounter procedure Cardiology Comment on above: Atherosclerosis of n ative coronary artery of morongo heart without angina pectoris [I25.10] Start: 05-05-2024 End: 05-05-2024 Patient encounter procedure 05/05/2024 1:40 PM EDT Appointment Radiology [address] [place] [address] Dx: Osteoporosis, 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] Radiology Comment on above: Dx: Osteoporosis, po st-menopausal [M81.0] Start: 04-27-2024 End: 07-27-2024 Cobalamin (Vitamin B12) [Mass/volume] in Serum or Plasma VITAMIN B12 Lab Routine 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 behavioral disturbance, psychotic disturbance, mood disturbance, or anxiety, unspecified dementia type (HCC) Other polyneuropathy Expected: 04/27/2024, Expires: 07/27/2024 [facility] Comment on above: Expected: 04/27/2024 , Expires: 07/27/2024 Start: 04-27-2024 End: 07-27-2024 COPPER BLOOD COPPER BLOOD Lab Routine Other polyneuropathy Expected: 04/27/2024, Expires: 07/27/2024 [facility] Comment on above: Expected: 04/27/2024 , Expires: 07/27/2024 Start: 04-27-2024 End: 07-27-2024 Erythrocyte sedimentation rate SEDIMENTATION RATE, WESTERGREN Lab Routine Other polyneuropathy Expected: 04/27/2024, Expires: 07/27/2024 [facility] Comment on above: Expected: 04/27/2024 , Expires: 07/27/2024 Start: 04-27-2024 End: 07-27-2024 Folate [Mass/volume] in Serum or Plasma FOLATE, SERUM Lab Routine 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 behavioral disturbance, psychotic disturbance, mood disturbance, or anxiety, unspecified dementia type (HCC) Other polyneuropathy Expected: 04/27/2024, Expires: 07/27/2024 [facility] Work Phone: Comment on above: Expected: 04/27/2024 , Expires: 07/27/2024 Start: 04-27-2024 End: 04-27-2024 Patient encounter procedure 04/27/2024 2:00 PM EDT Office Visit Neurology [address] [place] [address] Tram Santana MD [address] [place], [place] [address] Tremor, essential [G25.0] Neurology Comment on above: Tremor, essential [G 25.0] Start: 04-27-2024 End: 07-27-2024 PROT ELECT SERUM WITH ROBERTO AND INTERP PROT ELECT SERUM WITH ROBERTO AND INTERP Lab Routine Other polyneuropathy Expected: 04/27/2024, Expires: 07/27/2024 [facility] Comment on above: Expected: 04/27/2024 , Expires: 07/27/2024 Start: 04-27-2024 End: 07-27-2024 Thyrotropin [Units/volume] in Serum or Plasma THYROID STIMULATING HORMONE Lab Routine 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 behavioral disturbance, psychotic disturbance, mood disturbance, or anxiety, unspecified dementia type (HCC) Other polyneuropathy Expected: 04/27/2024, Expires: 07/27/2024 [facility] Comment on above: Expected: 04/27/2024 , Expires: 07/27/2024 Start: 04-08-2024 Hemoglobin A1c measurement HbA1C [facility] Start: 03-17-2024 End: 03-17-2024 Patient encounter procedure 03/17/2024 3:25 PM EDT Appointment Radiology [address] [place] [phone] Dx: Osteoporosis, 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] Radiology Comment on above: Dx: Osteoporosis, po st-menopausal [M81.0] Start: 03-09-2024 End: 03-09-2024 Patient encounter procedure 03/09/2024 1:00 PM EDT Office Visit [facility] Surgery [address] [facility] [place] [address] Marisa Sheldon APRN.[employer] [address] [facility] [place] [address] colonoscopy consult General Surgery Comment on above: colonoscopy consult Start: 03-03-2024 End: 03-03-2024 Patient encounter procedure 03/03/2024 1:00 PM EDT Office Visit Cardiology [address] [address] Michael Rodriguez DO [address] [place] [address] 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 [I25.10] Cardiology Comment on above: Atherosclerosis of n ative coronary artery of morongo heart without angina pectoris [I25.10] Start: 02-18-2024 End: 05-19-2024 25-hydroxyvitamin D3 [Mass/volume] in Serum or Plasma [facility] Comment on above: Expected: 02/18/2024 , Expires: 05/19/2024 Start: 02-18-2024 End: 05-19-2024 CBC W Auto Differential panel - Blood [facility] Work Phone: Comment on above: Expected: 02/18/2024 , Expires: 05/19/2024 Start: 02-12-2024 Urine microalbumin profile [facility] Comment on above: Postponed from 06/09 (Declined at this time) Start: 01-02-2024 Hemoglobin A1c/Hemoglobin.total in Blood HbA1C [facility] Start: 12-25-2023 Glaucoma screening Dilated Retinal E xam [facility] Start: 12-25-2023 Hepatitis C antibody , confirmatory test DILATED RETINAL EXAM [facility] Start: 09-28-2023 Advance Directive Discussion Advance Directive Discussion [facility] Start: 09-28-2023 Behavioral Health Screening Behavioral Health Screening [facility] Start: 08-14-2023 Hemoglobin A1c/Hemoglobin.total in Blood HBA1C [facility] Start: 07-23-2023 End: 09-22-2023 25-hydroxyvitamin D3 [Mass/volume] in Serum or Plasma VITAMIN D 25 HYDROXY Lab Routine Vitamin D deficiency Expected: 07/23/2023, Expires: 09/22/2023 [facility] Work Phone: Comment on above: Expected: 07/23/2023 , Expires: 09/22/2023 Start: 07-23-2023 End: 09-22-2023 ALBUMIN/CREAT RATIO RND UR ALBUMIN/CREAT RATIO RND UR Lab Routine 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) Expected: 07/23/2023, Expires: 09/22/2023 [facility] Work Phone: Comment on above: Expected: 07/23/2023 , Expires: 09/22/2023 Start: 07-23-2023 End: 09-22-2023 CBC panel - Blood by Automated count CBC Lab Routine 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) Expected: 07/23/2023, Expires: 09/22/2023 [facility] Work Phone: Comment on above: Expected: 07/23/2023 , Expires: 09/22/2023 Start: 07-23-2023 End: 09-22-2023 Comprehensive metabolic 2000 panel - Serum or Plasma COMP METABOLIC PANEL Lab Routine 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) Expected: 07/23/2023, Expires: 09/22/2023 [facility] Work Phone: Comment on above: Expected: 07/23/2023 , Expires: 09/22/2023 Start: 07-23-2023 End: 09-22-2023 Hemoglobin A1c in Blood HGB A1C Lab Routine 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) Expected: 07/23/2023, Expires: 09/22/2023 [facility] Work Phone: Comment on above: Expected: 07/23/2023 , Expires: 09/22/2023 Start: 07-23-2023 End: 09-22-2023 Lipid 1996 panel - Serum or Plasma LIPID PANEL BASIC Lab Routine Mixed hyperlipidemia Expected: 07/23/2023, Expires: 09/22/2023 [facility] Work Phone: Comment on above: Expected: 07/23/2023 , Expires: 09/22/2023 Start: 06-26-2023 3 comp foot exam completed DIABETIC FOOT EXAM [facility] Start: 06-26-2023 Hepatitis B screening URINE AL BUMIN:CREATININE RATIO [facility] Start: 06-23-2023 Hepatitis B surface antibody level LDL CHOLESTEROL [facility] Start: 05-29-2023 [facility] Start: 12-21-2022 Hemoglobin A1c/Hemoglobin.total in Blood HBA1C [facility] Start: 12-04-2022 End: 02-03-2023 Basic metabolic 2000 panel - Serum or Plasma BASIC METABOLIC PNL Lab Routine 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) Expected: 12/04/2022, Expires: 02/03/2023 [facility] Work Phone: Comment on above: Expected: 12/04/2022 , Expires: 02/03/2023 Start: 12-04-2022 End: 02-03-2023 CBC panel - Blood by Automated count CBC Lab Routine Polycythemia Expected: 12/04/2022, Expires: 02/03/2023 [facility] Work Phone: Comment on above: Expected: 12/04/2022 , Expires: 02/03/2023 Start: 12-04-2022 End: 02-03-2023 Hemoglobin A1c in Blood HGB A1C Lab Routine 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) Expected: 12/04/2022, Expires: 02/03/2023 [facility] Work Phone: Comment on above: Expected: 12/04/2022 , Expires: 02/03/2023 Start: 10-26-2022 Covid-19 Vaccine (5 - Pfizer series) Covid-19 Vaccine (5 - Pfizer series) [facility] Start: 09-28-2022 ADVANCE DIRECTIVE DISCUSSION ADVANCE DIRECTIVE DISCUSSION [facility] Start: 09-28-2022 DEPRESSION ASSESSMENT DEPRESSION ASS ESSMENT [facility] Start: 07-02-2022 Hepatitis B screening URINE AL BUMIN:CREATININE RATIO [facility] Start: 06-26-2022 End: 08-26-2022 ALBUMIN/CREAT RATIO RND UR [facility] Work Phone: Comment on above: Expected: 06/26/2022 , Expires: 08/26/2022 Start: 05-29-2022 Influenza vaccination INFLUENZA (#1) [facility] Start: 01-07-2022 3 comp foot exam completed DIABETIC FOOT EXAM [facility] Start: 12-31-2021 Hemoglobin A1c/Hemoglobin.total in Blood HBA1C [facility] Start: 12-31-2021 Hepatitis B surface antibody level LDL CHOLESTEROL [facility] Start: 11-28-2021 COVID-19 VACCINE (4 - Booster for Pfizer series) COVID-19 VACCINE (4 - Booster for Pfizer series) [facility] Start: 09-28-2021 ADVANCE DIRECTIVE DISCUSSION ADVANCE DIRECTIVE DISCUSSION [facility] Start: 09-28-2021 DEPRESSION ASSESSMENT DEPRESSION ASS ESSMENT [facility] Start: 08-02-2020 Hepatitis C antibody , confirmatory test DILATED RETINAL EXAM [facility] Start: 09-19-2016 Screening for osteoporosis Bone Density Screening [facility] Start: 06-09-2006 Urine microalbumin profile [facility] Start: 1999 Hepatitis B Vaccine (1 of 3 - Risk 3-dose series) Hepatitis B Vaccine (1 of 3 - Risk 3-dose series) [facility] Start: 1999 RSV Vaccine (1 - 1-d ose 60+ series) RSV Vaccine (1 - 1-dose 60+ series) [facility] CTA Head vessels and Neck vessels W contrast IV [facility]: 03-19-2025 DXA Skeletal system.axial Views for bone density DXA-AXIAL SKELETON Radiology Routine Osteoporosis, post-menopausal 1 Occurrences starting 02/18/2024 until 03/19/2025 [facility] Comment on above: 1 Occurrences starti ng 02/18/2024 until 03/19/2025 DXA Skeletal system. axial Views for bone density DXA-AXIAL SKELETON Radiology Routine Osteoporosis, post-menopausal 05/05/2024 2:01 PM EDT [facility] Work Phone: ECG COMPLETE ECG COMPLETE ECG 05/18/2024 3:05 PM EDT [facility] End: 05-18-2025 Echocardiography ECHO Cardiology Routine CAD S/P percutaneous coronary angioplasty Primary hypertension Mixed hyperlipidemia JL on CPAP PAD (peripheral artery disease) (HCC) Nonrheumatic aortic valve stenosis S/P right coronary artery (RCA) stent placement 1 Occurrences starting 05/18/2024 until 05/18/2025 [facility] Work Phone: Comment on above: 1 Occurrences starti ng 05/18/2024 until 05/18/2025 End: 02-27-2026 EPIL EEG ROUTINE EPIL EEG ROUTINE NEUROLOGY Routine 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 behavioral disturbance, psychotic disturbance, mood disturbance, or anxiety, unspecified dementia type (HCC) Seizure-like activity (HCC) 1 Occurrences starting 02/27/2025 until 02/27/2026 [facility] Work Phone: Comment on above: 1 Occurrences starti ng 02/27/2025 until 02/27/2026 End: 03-24-2023 PVR LEG [facility]G [facility] Vascular Lab Routine Left leg pain Left leg weakness Gait abnormality 1 Occurrences starting 03/24/2022 until 03/24/2023 [facility] Work Phone: Comment on above: 1 Occurrences starti ng 03/24/2022 until 03/24/2023 End: 07-26-2023 Us soft tissue head & neck real time imge docm US THYROID/PARATHYROID Radiology Routine Anterior cervical lymphadenopathy 1 Occurrences starting 06/26/2022 until 07/26/2023 [facility] Work Phone: Comment on above: 1 Occurrences starti ng 06/26/2022 until 07/26/2023 [facility] Immunizations Immunization Date Immunization Notes Care Provider [facility] 07-28-2024 COVID-19 vaccine, ag e 12+ yr (MODERNA) Matheus Fajardo MD Work Phone: [facility] 07-28-2024 influenza, high dose seasonal, preservative-free Matheus Fajardo MD Work Phone: [facility] 07-28-2024 influenza virus vacc ine, unspecified formulation Maribell Hill MD Work Phone: [facility] 02-16-2024 respiratory syncytia l virus (RSV), unspecified formulation Matheus Fajardo MD Work Phone: [facility] 07-07-2023 influenza (HD-IIV4) vaccine, age 65+ yr, high dose, quadrivalent, PF (FLUZONE HIGH-DOSE) 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: [facility] Work Phone: 07-07-2023 influenza virus vacc ine, unspecified formulation Matheus Fajardo MD Work Phone: [facility] 06-26-2022 COVID-19 booster vaccine, age 12+ yr, bivalent ([employer]) Matheus Fajardo MD Work Phone: [facility] Work Phone: 06-26-2022 influenza, high-dose , quadrivalent vaccine (FLUZONE HIGH DOSE QUADRIVALENT) Matheus Fajardo MD Work Phone: [facility] Work Phone: 06-26-2022 influenza virus vacc ine, unspecified formulation Matheus Fajardo MD Work Phone: [facility] 06-27-2021 influenza, high dose seasonal, preservative-free Emg 850) [facility] 11-22-2020 COVID-19 vaccine, ag e 12+ yr (PFIZER-BIONTECH - PURPLE TOP) Emg 850) [facility] Work Phone: 11-01-2020 COVID-19 vaccine, ag e 12+ yr (PFIZER-BIONTECH - PURPLE TOP) Emg 850) [facility] Work Phone: 06-11-2020 influenza, high-dose , quadrivalent vaccine (FLUZONE HIGH DOSE QUADRIVALENT) Emg 850) [facility] Work Phone: 07-01-2019 influenza, high dose seasonal, preservative-free Emg 850) [facility] Work Phone: 06-27-2019 zoster vaccine recombinant Emg 850) [facility] Work Phone: 04-14-2019 zoster vaccine recombinant Emg 850) [facility] Work Phone: 07-02-2018 influenza, high dose seasonal, preservative-free Emg 850) [facility] Work Phone: 06-13-2016 influenza, high dose seasonal, preservative-free Emg 850) [facility] Work Phone: 07-02-2015 influenza, high dose seasonal, preservative-free Emg 850) [facility] 10-31-2014 pneumococcal conjuga te vaccine, 13 valent Emg 850) [facility] 09-06-2013 zoster vaccine, live Emg 850) [facility] 07-08-2013 influenza virus vacc ine, unspecified formulation Emg 850) [facility] 07-17-2012 influenza virus vacc ine, unspecified formulation Emg 850) [facility] 07-23-2011 influenza virus vacc ine, unspecified formulation Emg 850) [facility] Work Phone: 07-23-2010 influenza virus vacc ine, unspecified formulation Emg 850) [facility] 07-11-2009 influenza virus vacc ine, unspecified formulation Emg 850) [facility] Work Phone: 07-14-2008 influenza virus vacc ine, unspecified formulation Emg 850) [facility] Work Phone: 07-28-2007 influenza virus vacc ine, unspecified formulation Emg 850) [facility] Work Phone: 08-10-2006 influenza virus vacc ine, unspecified formulation Emg 850) [facility] Work Phone: 06-08-2006 tetanus and diphther ia toxoids, adsorbed, preservative free, for adult use (2 Lf of tetanus toxoid and 2 Lf of diphtheria toxoid) Emg 850) [facility] Work Phone: 08-06-2005 influenza virus vacc ine, unspecified formulation Emg 850) [facility] Work Phone: 04-25-2005 pneumococcal polysaccharide vaccine, 23 valent Emg 850) [facility] Work Phone: 07-20-2004 influenza virus vacc ine, unspecified formulation Emg 850) [facility] Payers Date Payer Category Payer Self-pay [id number] 2024 Medicare (Managed Care) O EDE DVANTAGE O [id number] 2024 Unknown [id number] 2022 Unknown DUECLEOZ 2021 Medicare HUMANA MEDICARE HU[employer]NA MEDICARE PPO [id number] 2021-Present [phone] [address] [address] [place] [address] PPO [id number] 2019 Medicare [id number] 2003 Medicare SELF PAY INSURANCE [id number] Medicare [id number] Medicare SELF PAY INSURANCE [id number] Unknown [id number] Unknown [id number] Unknown [id number] Unknown [id number] Unknown [id number] Unknown [id number] Unknown [id number] Unknown [id number] Unknown [id number] Social History Date Type Detail Facility Start: 06-30-1967 End: 05-18-2024 Tobacco smoking status TNIS Smokes tobacco daily [facility] Work Phone: Start: [birth year]-30-1967 History of tobacco use Cigarette Smoker [facility] Start: 12-13-2021 End: 02-27-2025 Alcohol intake Current non-drinker of alcohol (finding) [facility] Start: 06-11-2020 End: 09-04-2022 History SDOH Alcohol Frequency 1 [facility] Start: 06-11-2020 History SDOH Alcohol Std Drinks 99 [facility] Start: 10-17-2019 End: 09-04-2022 History SDOH Social Connections Phone 5 [facility] Start: 06-05-2020 History SDOH Social Connections Get Together 4 [facility] Start: 10-17-2019 End: 09-04-2022 History SDOH Social Connections Bahai 3 [facility] Start: 10-17-2019 End: 09-04-2022 History SDOH Social Connections Membership 2 [facility] Start: 10-16-2019 Education 21 [facility] Start: 1940 Sex Assigned At Female [facility] Start: 12-10-2021 End: 06-26-2022 Exposure to SARS-CoV-2 (event) Not sure [facility] Start: 03-24-2022 End: 09-04-2022 History SDOH Physical Activity DPW 0 [facility] Start: 03-24-2022 History SDOH Transport Non-Med 98 [facility] Start: 03-27-2022 Tobacco smoking status NHIS Unknown if ever smoked [facility] Work Phone: Start: 01-26-2021 Cigarettes [facility] Start: 05-19-2019 End: 02-11-2023 Cigarettes smoked current (pack per day) - Reported 0.5 [facility] Start: 05-19-2019 End: 05-18-2024 Tobacco use and exposure Smokeless tobacco non-user [facility] Work Phone: Start: 09-03-2022 End: 02-11-2023 Social connection and isolation panel [facility] Do you belong to any clubs or organizations such as mu-ism groups, unions, fraternal or athletic groups, or school groups? No [facility] Are you now , , , , never or living with a partner? [facility] How often to you hav e a drink containing alcohol? Never [facility] Start: 08-29-2012 How many standard drinks containing alcohol do you have on a typical day? Patient does not drink [facility] Do you feel stress - tense, restless, nervous, or anxious, or unable to sleep at night because your mind is troubled all the time - these days [OSQ] Not at all [facility] (I/We) worried wheth er (my/our) food would run out before (I/we) got money to buy more. Never true [facility] Start: 05-13-2019 Gender identity Identifies as female gender (finding) [facility] Start: 05-13-2019 Sexual orientation Heterosexual (finding) [facility] Medical Equipment Procedure Code Equipment Code Equipment Origin al Text Equipment Identifier Dates Start: 01-17-2008 End: 03-24-2022 Comment on above: Test daily as direct ed 250.00, check blood sugars d aily. DX:250.00 Functional Status Date Assessment Result Facility 05-19-2019 Are you deaf, or do you have serious difficulty hearing Yes 05/19/2019 9:34 AM Matheus Bruno MD Yes [facility] 05-19-2019 Are you blind, or do you have serious difficulty seeing, even when wearing glasses No 05/19/2019 9:34 AM Matheus Bruno MD No [facility] 05-19-2019 Do you have serious difficulty walking or climbing stairs No 05/19/2019 9:34 AM Matheus Bruno MD No [facility] 05-19-2019 Do you have difficul ty dressing or bathing No 05/19/2019 9:34 AM Matheus Bruno MD No [facility] 05-19-2019 Because of a physica l, mental, or emotional condition, do you have difficulty doing errands alone such as visiting a physician's office or shopping No 05/19/2019 9:34 AM Matheus Bruno MD No [facility] Mental Status Date Assessment Result Facility 05-19-2019 Because of a physica l, mental, or emotional condition, do you have serious difficulty concentrating, remembering, or making decisions No 05/19/2019 9:34 AM Matheus Bruno MD No [facility] Clinical Notes 11-04-2017 to 05-23-2025 Telephone [...] 180 days. Authorizing Provider: MATHEUS FAJARDO MD [facility] 05-23-2025 Miscellaneous Notes The following approved [...] yes PHARMACY: [facility]. documented in this encounter [facility] 05-23-2025 Telephone encounter Note Patient has [...] Please advise. Thank you. Vivian Samuels LPN. [facility] 05-23-2025 Telephone encounter Note Patient's calling to request medication. gabapentin (NEURONTIN) 300 mg capsule () Patient last seen: 02-23-25 Future visit scheduled: yes PHARMACY: [facility]. [facility] 04-18-2025 Telephone encounter Note The patient [...] Saeed RN April 18, 2025 2:44 PM [facility] 04-18-2025 Miscellaneous Notes The patient has [...] 2025 2:44 PM documented in this encounter [facility] 04-05-2025 Telephone encounter Note Called pt, spoke to spouse informed him ECHO order has been placed and can be scheduled for May [facility] 04/05/25 Dr. Hill 2. Mitral regurgitation and aortic stenosis - ICD9: 396.2, ICD10: I08.0 TTE 03/2022: EF 65%, 1+MR, mild TR, mild to mod - Discussed repeating echo if no outside echo is seen. [facility] 04-05-2025 Miscellaneous Notes Called pt, spoke to spouse informed him ECHO order has been placed and can be scheduled for May [facility] 04/05/25 Dr. Hill 2. Mitral regurgitation and [...] to arrange this documented in this encounter [facility] 04-04-2025 Telephone encounter Note Please inform Ms. Herron that there was no outside echocardiogram seen from this year.Order has been placed for her to have it scheduled in May 2025. Please inform her to contact scheduling to arrange this [facility] 04-04-2025 History of Presen t illness Narrative Images from the original note were not included. [facility] SECTION OF REGIONAL CARDIOLOGY OUTPATIENT VISIT DATE 04/04/2025 OUTPATIENT VISIT TYPE ESTABLISHED PRIMARY CARE PHYSICIAN: Matheus Fajardo [address] [place] [address] Patient is being seen at the request [...] 07/07/2005 Infrarenal stent 2003 Coronary atherosclerosis 07/07/2005 [place], PTCA 1988. ST elev [place], RCA stent November 2003. Coronary atherosclerosis of unspecified type of vessel, morongo or graft 07/07/2005 [place], PTCA 1988. ST elev [place], RCA stent November 2003. DDD (degenerative disc [...] 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 ([facility]) 08/22/2024 Polycythemia 10/30/2017 Postmenopausal atrophic vaginitis Tremor, [...] TUMOR POLYP LESION SNARE TQ 05/22/2017 multiple dgkndd-tbqbw-fnqw follow-up CORONARY ENDARTERCOMY OPEN ANY METHOD 1988 [...] TUMOR) Mother UPPER INTESTINAL TUMOR Heart Father DE Diabetes Father Stroke Father MULTIPLE STROKES Cancer [...] I65.23 Patient seen by vascular surgery at [facility] on 12/05/2024. Per their clinic note, CTA [...] follow with vascular surgery Maribell Hill MD, [facility] records seen after her visit: Head/neck CTA 11/10/2024: Tight stenosis origin of LICA with tiny left vertebral artery. Mild atherosclerotic disease with no hemodynamically significant stenosis in arteries of head and neck. 46% stenosis proximal R ICA, 29% proximal LICA stenosis age-appropriate volume loss and remote small vessel ischemic changes documented in this encounter [facility] 04-04-2025 Note HNO ID: [id number] Author: MARIBELL HILL MD Service: ? Author Type: Physician Type: Progress Notes Filed: 04/04/2025 17:42 Note Text: [facility] SECTION OF REGIONAL CARDIOLOGY OUTPATIENT VISIT DATE 04/04/2025 OUTPATIENT VISIT TYPE ESTABLISHED PRIMARY CARE PHYSICIAN: Matheus Fajardo [address] [place] [address] Patient is being seen at the request [...] 07/07/2005 Infrarenal stent 2003 Coronary atherosclerosis 07/07/2005 DE, PTCA 1988. ST elev [place], RCA stent November 2003. Coronary atherosclerosis of unspecified type of vessel, morongo or graft 07/07/2005 [place], PTCA 1988. ST elev [place], RCA stent November 2003. DDD (degenerative disc [...] TUMOR POLYP LESION SNARE TQ 05/22/2017 multiple fmrdfp-tawow-uapp follow-up CORONARY ENDARTERCOMY OPEN ANY METHOD 1989 [...] TUMOR) Mother UPPER INTESTINAL TUMOR Heart Father DE Diabetes Father Stroke Father MULTIPLE STROKES Cancer Father skin Heart Brother ANGIOPLASTY Colon Cancer Brother Alzheimer's Disease Brot (more content not included)... [facility] 03-14-2025 Note HNO ID: [id number] Author: THEA CORDOBA APRN.[employer] Service: ? Author Type: Nurse Practitioner Type: [...] 07/07/2005 Infrarenal stent 2003 Coronary atherosclerosis 07/07/2005 DE, PTCA 1988. ST elev [place], RCA stent November 2003. Coronary atherosclerosis of unspecified type of vessel, morongo or graft 07/07/2005 [place], PTCA 1988. ST elev [place], RCA stent November 2003. DDD (degenerative disc [...] TUMOR POLYP LESION SNARE TQ 05/22/2017 multiple svcpzs-tqaae-ncgi follow-up CORONARY ENDARTERCOMY OPEN ANY METHOD 1989 [...] three times a (more content not included)... [facility] 03-14-2025 History of Presen t illness Narrative [...] 07/07/2005 Infrarenal stent 2003 Coronary atherosclerosis 07/07/2005 DE, PTCA 1988. ST elev [place], RCA stent November 2003. Coronary atherosclerosis of unspecified type of vessel, morongo or graft 07/07/2005 [place], PTCA 1988. ST elev [place], RCA stent November 2003. DDD (degenerative disc disease), lumbar 04/19/2014 Dr. Galen Sanchez, pain management Diaphragmatic hernia without mention of obstruction or gangrene Diverticulosis of colon (without mention of hemorrhage) Esophageal reflux Esophagitis, unspecified Essential hypertension 06/10/2016 Excessive sweating, local 05/19/2019 Hemangioma of liver 03/12/2007 Mixed hyperlipidemia 07/07/2005 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 behavioral disturbance, psychotic disturbance, mood disturbance, or anxiety ([facility]) 10/15/2023 Nocturnal leg cramps 05/19/2019 JL (obstructive sleep apnea) 10/16/2011 DME Niall for CPAP Osteoporosis, post-menopausal 09/14/2012 Other microscopic hematuria 11/04/2017 Dr. Galen Waters. 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 ([facility]) 08/22/2024 Polycythemia 10/30/2017 Postmenopausal atrophic vaginitis Tremor, [...] TUMOR POLYP LESION SNARE TQ 05/22/2017 multiple ltslcz-ezplc-glsl follow-up CORONARY ENDARTERCOMY OPEN ANY METHOD 1988 [...] TUMOR) Mother UPPER INTESTINAL TUMOR Heart Father DE Diabetes Father Stroke Father MULTIPLE STROKES Cancer [...] and agreement with this plan. Thea Cordoba APRN.[employer] History and Record Review Clinical information obtained [...] wrapped in an Shaheen [facility] care documented in this encounter [facility] 03-14-2025 History of Presen t illness [...] PATIENT PRESENTS WITH AN IMPLANTABLE OR ATTACHED TOBACCO HANGER: No RADIOLOGY DEPARTMENT: General X-ray: Exam(s) Completed: Lower Extremity X-Ray(s): Knee, AP / Lat / Tunne / Merchant Bilateral Upper Extremity X-Ray(s): Hand, right PERIPHERAL IV DATA: Not applicable SIGNED BY: RT Mandeep(R) March 14, 2025 2:42 PM documented in this encounter [facility] 03-14-2025 Note HNO ID: [id number] Author: DOUGLAS HOWE RT(Kenny) Service: ? Author Type: Privacy Specialist Type: Progress Notes Filed: 03/14/2025 15:17 Note [...] PATIENT PRESENTS WITH AN IMPLANTABLE OR ATTACHED TOBACCO HANGER: No RADIOLOGY DEPARTMENT: General X-ray: Exam(s) Completed: Lower Extremity X-Ray(s): Knee, AP / Lat / Tunne / Merchant Bilateral Upper Extremity X-Ray(s): Hand, right PERIPHERAL IV DATA: Not applicable SIGNED BY: RT Mandeep(R) March 14, 2025 2:42 PM [facility] 02-27-2025 Instructions Tram Santana MD - 02/27/2025 10:55 AM EDT 1. Start Keppra (AKA levetiracetam) for suspected seizures - take 1/2 pill twice a day for a week then increase to a full pill twice a day thereafter. Watch out for irritability as the main possible side effect. 2. Get a seizure test called an EEG documented in this encounter [facility] 02-27-2025 Note HNO ID: [id number] Author: TRAM SANTANA MD Service: ? Author [...] October diagnosed as TIA at [facility] Donepezil increase led to diarrhea so back [...] Neurologic Exam: She is alert. Reg 11/28 [facility], February ? 2024, Mon, age 85, attention [...] as follows: Re (more content not included)... [facility] 02-27-2025 History of Presen t illness Narrative [...] October diagnosed as TIA at [facility] Donepezil increase led to diarrhea so back [...] Neurologic Exam: She is alert. Reg 11/28 [facility], February ? 2024, Mon, age 85, attention [...] partial records from two 10/2024 admissions to [place] [facility] 11/10/24 1. No acute intracranial [...] for appointments and looking to transfer to [place], explained providers there Risks & Side Effects of Newly Prescribed Medication, Discussed with Patient: YES Tram Santana MD [facility] Neurology documented in this encounter [facility] 02-23-2025 Note HNO ID: [id number] Author: MATHEUS FAJARDO MD Service: ? Author Type: Physician Type: Progress Notes Filed: 02/23/2025 09:55 Note Text: This note was created using [employer]. Subjective Mattie Herron is a 85 year old female here with Gomez. She had no new concerns. She was seeing [facility] for carotid disease with history [...] COMPREHENSIVE METABOLIC HADLEY (more content not included)... [facility] 02-23-2025 History of Presen t illness Narrative This note was created using [employer]. Subjective Mattie Herron is a 85 year old female here with Gomez. She had no new concerns. She was seeing [facility] for carotid disease with history [...] MD as PCP - General Cookie Sewell, BAG CHECKER.[employer] as Enterprise Systems Administrator (Internal Medicine) Tram Santana MD (Neurology) Maribell Hill MD (Cardiology) Outside specialists seen: Laura Mancuso PAC ([facility]) Ammy Linares OD ([facility]) Medical/Family history review Reviewed and updated problem [...] ready to quit documented in this encounter [facility] 02-23-2025 Instructions Matheus Fajardo MD - [...] review all the medicines you take, even pgcj-kbh-qkypsnb medicines. As you get older, the way [...] certain medical conditions. documented in this encounter [facility] 02-23-2025 Note HNO ID: [id number] Author: MATHEUS FAJARDO MD Service: ? Author [...] MD as PCP - General Cookie Sewell, BAG CHECKER.[employer] as Enterprise Systems Administrator (Internal Medicine) Tram Santana MD (Neurology) Maribell Hill MD (Cardiology) Outside specialists seen: Laura Mancuso PAC ([facility]) Ammy Linares OD ([facility]) Medical/Family history review Reviewed and updated problem [...] strategies. Patient is not ready to quit [facility] 01-21-2025 Note HNO ID: [id number] Author: ANDRIA BOSTON MD Service: ? Author Type: Physician Type: Progress Notes Filed: 01/21/2025 11:39 Note Text: This note was created using [employer]. Subjective Mattie Herron is a 85 year [...] pollen levels during a recent trip to [place]. Additionally, Kami reports intermittent diarrhea occurring approximately [...] 07/07/2005 Infrarenal stent 2003 Coronary atherosclerosis 07/07/2005 [place], PTCA 1988. ST elev [place], RCA stent November 2003. Coronary atherosclerosis of unspecified type of vessel, morongo or graft 07/07/2005 [place], PTCA 1988. ST elev [place], RCA stent November 2003. DDD (degenerative disc disease), lumbar 04/19/2014 Dr. Galen Sanchez, pain management Diaphragmatic hernia without mention of obstruction or gangrene Diverticulosis of colon (without mention of hemorrhage) Esophageal reflux Esophagitis, unspecified Essential hypertension 06/10/2016 Excessive sweating, local 05/19/2019 Hemangioma of liver 03/12/2007 Mixed hyperlipidemia 07/07/2005 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 behavioral disturbance, psychotic disturbance, mood disturbance, or anxiety ([facility]) 10/15/2023 Nocturnal leg cramps 05/19/2019 JL (obstructive sleep apnea) 10/16/2011 NAZANIN Tierney for CPAP Osteoporosis, post-menopausal 09/14/2012 Other microscopic hematuria 11/04/2017 Dr. Galen Waters. 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 ([facility]) 08/22/2024 Polycythemia 10/30/2017 Postmenopausal atrophic vaginitis Tremor, [...] wheezing/shortness of b (more content not included)... [facility] 01-18-2025 Miscellaneous Notes I did attempt to [...] comfortable with plan. documented in this encounter [facility] 01-18-2025 Telephone encounter Note I did [...] and explained results. Family comfortable with plan. [facility] 01-18-2025 Note SARS-COV-2 (AGENT OF COVID-19) RNA: Not detected INFLUENZA A RNA: Not detected INFLUENZA B RNA: Not detected RESPIRATORY SYNCYTIAL VIRUS (RSV) RNA: Not detected [facility] Comment on above: Performed By: #### 9 [id number] #### [facility] CLIA [id number] [address] [place] [address] 01-18-2025 Note HNO ID: [id number] Author: DOUGLAS HOWE RT(R) Service: ? Author Type: Privacy Specialist Type: Progress Notes Filed: 01/18/2025 11:07 Note [...] PATIENT PRESENTS WITH AN IMPLANTABLE OR ATTACHED TOBACCO HANGER: No RADIOLOGY DEPARTMENT: General X-ray: Exam(s) Completed: Chest X-Ray PERIPHERAL IV DATA: Not applicable SIGNED BY: RT Mandeep(R) January 18, 2025 10:51 AM [facility] 01-18-2025 Note HNO ID: [id number] Author: LORAINE SWIFT APRN.[employer] Service: ? Author Type: Nurse Practitioner Type: Progress Notes Filed: 01/18/2025 11:39 Note Text: This note was created using [employer]. Subjective Mattie Herron is a 85 year old female. HPI About a month ago patient was seen in urgent care in [place] where she was diagnosed with bronchitis and [...] AND RSV PCR, ROUTINE Loraine Swift APRN.CNP [facility] 01-18-2025 History of Presen t illness Narrative This note was created using [employer]. Subjective Mattie Herron is a 85 year old female. HPI About a month ago patient was seen in urgent care in [place] where she was diagnosed with bronchitis and [...] Loraine Swift APRN.CNP documented in this encounter [facility] 12-02-2024 Evaluation note Diagnosis Onset Date Resolution Carotid artery stenosis acute December 02, 2024 3:27pm [facility] Work Phone: 1(981) 827-808203-03-2025 NoteHNO ID: [id number] Author: MARCO FRANK PT Service: ? Author Type: Physical Therapist Type: Progress Notes Filed: 11/28/2024 15:33 Note Text: 11/28/2024 [facility] PHYSICAL THERAPY DISCONTINUANCE [...] therapy or scheduled additional follow-up appointments. [facility] NoteHNO ID: [id number] Author: MATHEUS FAJARDO MD Service: ? Author Type: Physician Type: Progress Notes Filed: 11/14/2024 15:40 Note Text: This note was created using [employer]. Subjective Transitional Care Management Progress Note The [...] Associated With Type 2 Diabetes Mellitus ([facility]) Polycythemia Urgency Incontinence Gait Abnormality Moderate Dementia Without Behavioral Disturbance, Psychotic Disturbance, Mood Disturbance, Or Anxiety ([facility]) Cad S/P Percutaneous Coronary Angioplasty Pad (Peripheral Artery Disease) ([facility]) Nonrheumatic Aortic Valve Stenosis S/P Right Coronary Artery (Rca) Stent Placement Parkinson's Disease Without Dyskinesia Or Fluctuating Manifestations ([facility]) Meningioma ([facility]) Tia (Transient Ischemic Attack) Social History Tobacco [...] heard. No gallop. Pulmona (more content not included)...[facility]02-17-2025 History of Present illness Narrative* Matheus Fajardo [...] 435.9, ICD10: G45.9 (primary diagnosis) Refer to [facility], Dr. Yosvany Holloway. - CONSULT TO NEUROLOGY 2. 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 - ICD9: 414.01, [...] - ICD9: 294.20, ICD10: F03.B0 Establish with [facility]. - CONSULT TO NEUROLOGY 5. Bilateral carotid artery stenosis - ICD9: 433.10, 433.30, ICD10: I65.23 Refer to [facility]. - CONSULT TO VASCULAR SURGERY 6. Influenza - ICD9: 487.1, ICD10: J11.1 - Finish oseltamivir. Matheus Fajardo MD [facility] Medical Records Department [address] [place] [id number] Discharge Summary 11/11/24 1612 MR#: [id number] Acct: [id number] Name: MATTIE HERRON Rep #: [id number] : 1940 84 From: Trino Purcell MD PCP: Dr. Matheus Fajardo MD Status:ADM STORMY Location: [place] [address] Providers Date of Admission: 11/10/24 Primary Care [...] who presented to the emergency department at [facility] on 11/10/2024 with a chief complaint of [...] negative for stroke a (more content not included)...[facility]02-03-2025 Telephone encounter Note* Telephone Encounter - Azul [...] Rooney RN October 31, 2024 10:05 AM [facility]02-03-2025 Miscellaneous Notes* Telephone Encounter - Azul [...] 31, 2024 10:05 AM [facility] Telephone encounter Note * Telephone Encounter [...] Mora RN September 19, 2024 6:35 PM [facility]12-23-2024 Miscellaneous Notes* Telephone Encounter - Malu [...] Thank you. Neida Dougherty. [facility] Telephone encounter Note * Telephone Encounter [...] 02/23/2025 Please advise. Thank you. Neida Dougherty. [facility]12-19-2024 NoteHNO ID: [id number] Author: HYACINTH SON, PT, DPT Service: ? [...] -score by a minimum of 5 points. [place] in home exercise program. Patient will demonstrate [...] Planned: 4 Planned Treatment Interventions: Therapeutic exercise (80250), Neuromuscular re-education (25625), Gait Training (25941), Self-group home management (93655), Patient/Family/Caregiver Education PLAN FOR NEXT VISIT: review [...] lenses Sensory Sensory Deficits: Hearing Hearing deficits: KAIB[place] with hearing aids LE Strength R Hip [...] Gait Distance (feet): 50 (more content not included)...[id number] History of Present illness Narrative* Hyacinth Son, [...] -score by a minimum of 5 points. [place] in home exercise program. Patient will demonstrate [...] Planned: 4 Planned Treatment Interventions: Therapeutic exercise (72344), Neuromuscular re- education (34208), Gait Training (57274), Self-group home management (95808), Patient/Family/Caregiver Education PLAN FOR NEXT VISIT: review [...] lenses Sensory Sensory Deficits: Hearing Hearing deficits: KAIBAB with hearing aids LE Strength R Hip [...] PT, DPT - 09/13/2024 3:49 PM EST Program_ID:[id number] Access Code: [email or web address] URL: [email or web address] Date: 09-13-2024 Prepared By: Hyacinth Son Program [...] sets - 5 reps [facility] Instructions* Patient Instructions* Tram Santana MD [...] is a great idea. [facility]2024 NoteHNO ID: [id number] Author: TRAM SANTANA MD Service: ? Author [...] responses and reduced amplitude (more content not included)...[facility] 08-24-2024 History of Present illness Narrative* Tram [...] Neurologic Exam: She is alert. Reg 3/ [facility], , Tuparamjit x, age 84, WORLD -> [...] Discussed with Patient: YES Tram Santana MD [facility] Neurology [facility] Instructions* Patient Instructions* Matheus Fajardo MD - 08/22/2024 3:39 PM EST LABS TODAY. [facility]2024 NoteHNO ID: [id number] Author: MATHEUS FAJARDO MD Service: ? Author Type: Physician Type: Progress Notes Filed: 08/22/2024 16:11 Note Text: This note was created using Get[employer]. Subjective Patient presents with: F/U 6 months [...] Psychotic Disturbance, Mood Disturbance, Or Anxiety ([facility]) Cad S/P Percutaneous Coronary Angioplasty Pad (Peripheral Artery Disease) ([facility]) Nonrheumatic Aortic Valve Stenosis S/P Right Coronary Artery (Rca) Stent Placement Parkinson's Disease Without Dyskinesia Or Fluctuating Manifestations ([facility]) Social History Tobacco Use Smoking status: Every [...] (HCC) - ICD9: 2 (more content not included)...[facility]11-25-2024 History of Present illness Narrative* Matheus Fajardo MD - 08/22/2024 3:19 PM EST This note was created using Sentrigoriter. Subjective Patient presents with: F/U 6 months [...] Coronary Angioplasty Pad (Peripheral Artery Disease) (Formerly [facility]) Nonrheumatic Aortic Valve Stenosis S/P Right Coronary Artery (Rca) Stent Placement Parkinson's Disease Without Dyskinesia Or Fluctuating Manifestations (Formerly [facility]) Social History Tobacco Use Smoking status: Every [...] 424.1, ICD10: I35.0 Stable. 3. 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 - ICD9: 414.01, [...] COUNT Matheus Fajardo MD documented [facility] encounterG[facility]11-[facility]24 Telephone encounter Note * Telephone Encounter [...] Hyacinth Montemayor August 02, 2024 3:21 PM [facility]11-05-2024 Miscellaneous Notes* Telephone Encounter - Hyacinth [...] Take 1 tablet by mouth once daily. yHacinth Montemayor August 02, 2024 3:21 PM documented in this encounterGlen[facility] Hospital10-23-2024 Telephone encounter Note * Telephone Encounter [...] Hyacinth Montemayor July 20, 2024 2:33 PM [facility]10-23-2024 Miscellaneous Notes* Telephone Encounter - Hyacinth [...] 20, 2024 2:33 PM documented in this encounterGlenbeigh Hospital08-21-2024 History of Present illness Narrative* Elvira Gunter DO - 05/18/2024 3:13 PM EDT Images from the original note were not included. [facility] SECTION OF [facility] OUTPATIENT VISIT DATE May 18, 2024 PRIMARY CARE PHYSICIAN: Matheus Fajardo [address] [place] [address] HISTORY OF PRESENT ILLNESS: Ms. Herron is [...] over 60 years. 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 She is a non-smoker, [...] Comment: Infrarenal stent 200307/07/2005: Coronary atherosclerosis Comment: [place], PTCA 1988. ST elev [place], RCA stent November 2003. 07/07/2005: Coronary atherosclerosis of unspecified type of vessel, morongo or graft Comment: [place], PTCA 1988. ST elev [place], RCA stent November 2003. 04/19/2014: DDD (degenerative [...] TUMOR POLYP LESION SNARE TQ Comment: multiple nofwuu-hcmke-nlkd follow-up 1988: CORONARY ENDARTERCOMY OPEN ANY METHOD [...] TUMOR) Mother UPPER INTESTINAL TUMOR Heart Father DE Diabetes Father Stroke Father MULTIPLE STROKES Cancer [...] once daily Elvira Gunter DO, FACC, FAC Correctional Facility Nurse, [facility] Ambulatory Cardiology Correctional Facility Nurse, [facility] Cardiac Rehabilitation Correctional Facility Nurse, [facility] Cardiac Rehabilitation Correctional Facility Nurse, [facility] Congestive Heart Failure Clinic Correctional Facility Nurse, [facility] Ambulatory Cardiology Clinical Radiographer Mammographer Profressor of Medicine, [facility] Staff Dial Buffer, Jomar Prescott Department of Cardiovascular Medicine/Heart [facility] [place], [facility] Please note: This note has been produced using speech recognition software and may contain errors related to that system including michelle, punctuation, spelling, words, gender and phrases that may be inappropriate. documented in this encounterGlenbeigh Hospital08-13-2024 Telephone encounter Note * Telephone Encounter - Yolie Johnson RN - 05/10/2024 8:54 AM EDT Patient notified of results and provider's instructions. Patient verbalizes understanding. Yolie Johnson RN [facility]08-13-2024 Miscellaneous Notes* Telephone Encounter - Yolie [...] infusion every 12 months. documented in this encounterGlenbeigh Hospital08-13-2024 Telephone encounter Note * Telephone Encounter - Vivian Samuels LPN - 05/10/2024 8:30 AM EDT Left message to call & speak to nurse re: results. Vivian Samuels LPN [facility]08-13-2024 Telephone encounter Note* Telephone Encounter - Vivian Samuels LPN - 05/10/2024 8:29 AM EDT ----- Message from Matheus Fajardo MD sent at 05/10/2024 12:28 AM EDT ----- Osteoporosis worse in all levels compared with 10 years ago. As discussed, consider Prolia SC injection every 6 months, or Reclast IV infusion every 12 months. [facility]08-08[facility] History of Present illness Narrative* Paul [...] PATIENT PRESENTS WITH AN IMPLANTABLE OR ATTACHED TOBACCO HANGER: No RADIOLOGY DEPARTMENT: Bone Density PERIPHERAL IV DATA: Not applicable SIGNED BY: RT Williams(R) May 05, 2024 1:38 PM documented in this encounterGlenbeigh Hospital08-05-2024 Telephone encounter Note * Telephone Encounter - Lizzy Byrd MA - 05/02/2024 3:43 PM EDT Patient notified of results. Verbalized understanding with no further questions or concerns. Will contact PCP. Lizzy Byrd MA [facility]08-05-2024 Miscellaneous Notes* Telephone Encounter - Lizzy [...] B12 injections for her. documented in this encounterGlenbeigh Hospital08-05-2024 Telephone encounter Note * Telephone Encounter - Lizzy Byrd MA - 05/02/2024 3:24 PM EDT Left message with to have patient return call. Lizzy Byrd MA [facility]08-05-[facility]24 Telephone encounter Note* Telephone Encounter - Tram Santana MD - 05/02/2024 2:57 PM EDT Can you let her know her B12 is very low - she should start over the counter B12 supplement 1,000 mcg a day and should touch base with her PCP if they can do B12 injections for her. [facility]07-31-[facility] Instructions* Patient Instructions* Tram Santana MD [...] is helpful for memory documented in this encounterGlenbeigh Hospital07-31-2024 History of Present illness Narrative* Tram [...] hallucinations. Couple years college. 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 Denies etoh. 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 Dx: LJ on CPAP. G47.33. 1 Device 0 Cholecalciferol, [...] Comment: Infrarenal stent 200307/07/2005: Coronary atherosclerosis Comment: [place], PTCA 1988. ST elev [place], RCA stent November 2003. 07/07/2005: Coronary atherosclerosis of unspecified type of vessel, morongo or graft Comment: [place], PTCA 1988. ST elev [place], RCA stent November 2003. 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 Start donepezil 5 mg daily, discussed potential [...] me in 4 months. Tram Santana MD [facility] Neurology documented in this encounterGlenbeigh Hospital07-15-2024 Telephone encounter Note * Telephone Encounter [...] Agnieszka Montemayor April 11, 2024 10:56 AM [facility]07-15-2024 Miscellaneous Notes* Telephone Encounter - Agnieszka [...] 11, 2024 10:56 AM documented in this encounterGlenbeigh Hospital06-12-2024 Nurse Note* Karlee Ingram LPN - [...] 2019 Last Colonoscopy: 2017 Karlee Ingram LPN [facility]06-12-20[facility] Nurse Note* Karlee IngramIZZY - 03/09/2024 [...] 2016 Karlee Ingram LPN documented in this encounterGlenbeigh Hospital06-12-2024 History of Present illness Narrative* Marisa Sheldon APRN.[employer] - 03/09/2024 1:07 PM EDT HISTORY AND [...] 07/07/2005 Infrarenal stent 2003 Coronary atherosclerosis 07/07/2005 DE, PTCA 1988. ST elev [place], RCA stent November 2003. Coronary atherosclerosis of unspecified type of vessel, morongo or graft 07/07/2005 DE, PTCA 1988. ST elev [place], RCA stent November 2003. DDD (degenerative disc [...] TUMOR POLYP LESION SNARE TQ 05/22/2017 multiple trrdfu-ahgub-hajs follow-up CORONARY ENDARTERCOMY OPEN ANY METHOD 1989 [...] TUMOR) Mother UPPER INTESTINAL TUMOR Heart Father DE Diabetes Father Stroke Father MULTIPLE STROKES Cancer Father skin Heart Brother ANGIOPLASTY Colon Cancer Brother Alzheimer's Disease Brother Aneurysm Brother REVIEW OF SYMPTOMS: The review of systems data was entered by the nurse and reviewed by ut Nursing Notes: Karlee Ingram LPN 03/09/2024 1:10 [...] plan Marisa Sheldon APRN.CHELA documented in this encounterGlenbeigh Hospital05-28-2024 Telephone encounter Note * Telephone Encounter - Mattie Gerber - 02/23/2024 1:48 PM EDT 2nd call attempt, left vm [facility]05-28-2024 Miscellaneous Notes* Telephone Encounter - Mattie Gerber - 02/23/2024 1:48 PM EDT 2nd call attempt, left vm * Telephone Encounter - Niki Paul MA - 02/18/2024 7:16 PM EDT Please assist patient with scheduling GEN SURG consult for colonoscopy. Niki Paul MA documented in this encounterGlenbeigh Hospital05-23-2024 Telephone encounter Note * Telephone Encounter - Niki Paul MA - 02/18/2024 7:16 PM EDT Please assist patient with scheduling GEN SURG consult for colonoscopy. Niki Paul MA [facility]05-23-2024 History of Present illness Narrative* Matheus Fajardo MD - 02/18/2024 12:14 PM EDT This note was created using All-Star Sports Centerter. Subjective Mattie Herron is a 84 year old female here with Anand. She was doing reasonably well. Cognitive issues continue to be of concern. Neurology consult was cancelled due to Anand's injury, but can now be rescheduled. 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 9. 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 - ICD9: 414.01, [...] as PCP - General Outside specialists seen: [facility]. No longer in network. [facility]. Needs rescheduled. LEONOR Linares, [facility]. Medical/Family history review Reviewed and updated [...] recommended: Tdap at pharmacy. documented in this encounterGlenbeigh Hospital04-03-2024 Miscellaneous Notes* Telephone Encounter - Bo [...] notify patient. Katherin Montemayor documented in this encounterGlenbeigh Hospital09-28-2023 Miscellaneous Notes* Telephone Encounter - Asher [...] Please advise. Hyacinth Montemayor documented in this encounterGlenbeigh Hospital07-03-2023 Miscellaneous Notes* Telephone Encounter - Bo [...] notify patient. Neida Dougherty documented in this encounterGlenbeigh Hospital06-27-2023 Miscellaneous Notes* Telephone Encounter - Vivian [...] advise. Minnie Warren documented in this encounterCleveland Bbrloj99-25-2424 Miscellaneous Notes* Telephone Encounter - Bo Borden [...] notify patient. Elizabeth Francis documented in this encounterGlenbeigh Hospital05-10-2023 Miscellaneous Notes* Telephone Encounter - Rosita Mack LPN - 02/04/2023 3:06 PM EDT Patient returned call and went over notes below and scheduled medicare wellness for 02/11/2023 with RADIO COMMENTATOR. * Telephone Encounter - Cristina Montemayor - [...] CALL 911 RX INSTRUCTIONS: Patient presented to [facility], reported Nitroglycerin, [facility] [place]. Reina Walters LPN documented in this encounterGlenbeigh Hospital05-09-2023 History of Present illness Narrative* Oswaldo Woods APRN.[employer] - 02/03/2023 10:07 AM EDT Images from the original note were not included. Subjective HPI Vance female presents urgent care chief complaint sore [...] 07/07/2005 Infrarenal stent 2003 Coronary atherosclerosis 07/07/2005 DE, PTCA 1988. ST elev [place], RCA stent November 2003. Coronary atherosclerosis of unspecified type of vessel, morongo or graft 07/07/2005 [place], PTCA 1988. ST elev [place], RCA stent November 2003. DDD (degenerative disc [...] TUMOR POLYP LESION SNARE TQ 05/22/2017 multiple vmcskt-xrfqy-tjmb follow-up CORONARY ENDARTERCOMY OPEN ANY METHOD 1989 [...] TUMOR) Mother UPPER INTESTINAL TUMOR Heart Father DE Diabetes Father Stroke Father MULTIPLE STROKES Cancer [...] of care. This note was generated using Selatra software. It may contain errors in wording, punctuation, or spelling. Oswaldo Woods APRN.CHELA documented in this encounterGlenbeigh Hospital04-10-2023 Miscellaneous Notes* Telephone Encounter - Hyacinth Elizabeth Jaramillo Pss - 01/05/2023 3:07 PM EDT Pharmacy verified in [facility] Patient has been identified by name and [...] advise. Hyacinth Jaramillo Pss documented in this encounterGlenbeigh Hospital03-06-2023 Miscellaneous Notes* Telephone Encounter - Bo [...] patient. Katherin Kendall Pss documented in this encounterGlenbeigh Hospital01-06-2023 Miscellaneous Notes* Telephone Encounter - Malu [...] Vivian Samuels LPN * Telephone Encounter - Emgan [facility] - 09/30/2022 2:32 PM EST Patient has been identified by name and date of : Yes Requested Prescriptions Pending Prescriptions Disp Refills PARoxetine (PAXIL) 10 mg tablet 90 tablet 1 Sig: Take 1 tablet by mouth once daily. RX INSTRUCTIONS: Patient aware RX will be sent to pharmacy. No need to notify patient. [facility] documented in this encounterGlenbeigh Hospital12-12-2022 Miscellaneous Notes* Telephone Encounter - Bo Borden Ma - 09/08/2022 3:44 PM EST Faxed to [facility] as requested. Bo Borden Ma * Telephone Encounter - Hyacinth Jaramillo Pss - 09/08/2022 12:14 PM EST Gomez is calling on behalf of Kami. They are requesting a new walker that is taller than her current one. He spoke to [facility] and they said to request a front wheeled walker. Please send script to the [facility] in [place]. documented in this encounterGlenbeigh Hospital12-12-2022 Miscellaneous Notes* Telephone Encounter - Yolie [...] and advise. Eliz Santos documented in this encounterGlenbeigh Hospital12-09-2022 Instructions* Patient Instructions* Matheus Fajardo MD - 09/05/2022 4:12 PM EST I am referring you to Dr. Susan Funez, a urology apparatus cleaner for incontinence. Fasting blood work in 3 months. Diabetic eye exam is due. documented in this encounterGlenbeigh Hospital12-09-2022 History of Present illness Narrative* Matheus Fajardo MD - 09/05/2022 3:53 PM EST This note was created using GetGifted. Subjective Mattie Herron is a 82 year [...] A1C Matheus Fajardo MD documented in this encounterGlenbeigh Hospital11-28-2022 Miscellaneous Notes* Telephone Encounter - Bo [...] see him. He reports they are in [place] right now. Pleasesend message through [employer] per husbands request. documented in this encounterGlenbeigh Hospital09-29-2022 History of Present illness Narrative* Matheus Fajardo MD - 06/26/2022 4:21 PM EDT This note was created using Sentrigoriter. Subjective Mattie Herron is a 82 year [...] YR Matheus Fajardo MD documented in this encounterGlenbeigh Hospital08-29-2022 Miscellaneous Notes* Telephone Encounter - Bo Borden Ma - 05/26/2022 12:51 PM EDT JENAE: 03/24/2022 Last refill: 02/10/2022 QTY: 180 Refills: 2 * Telephone Encounter - Hyacinth Montemayor - 05/26/2022 9:18 AM EDT Pharmacy verified in [place] Patient has been identified by name and [...] advise. Hyacinth Jaramillo Pss documented in this encounterGlenbeigh Hospital06-27-2022 Instructions* Patient Instructions* Matheus Fajardo MD - 03/24/2022 2:17 PM EDT STOP ATORVASTATIN (LIPITOR) FOR 7 DAYS AND SEE IF PAIN AND WEAKNESS IMPROVES. AFTER 7 DAYS, RESUME ATORVASTATIN AND OBSERVE SYMPTOMS documented in this encounterGlenbeigh Hospital06-27-2022 History of Present illness Narrative* Matheus Fajardo MD - 03/24/2022 1:57 PM EDT This note was created using GetGifted. Subjective Mattie Herron was here with Anand [...] instructions. Matheus Fajardo MD documented in this encounterGlenbeigh Hospital05-16-2022 Miscellaneous Notes* Telephone Encounter - Vivian [...] Not applicable Please advise. Thank you. Vivian Smauels LPN * Telephone Encounter - Hyacinth Jaramillo Pss - 02/10/2022 12:17 PM EDT Pharmacy verified in [facility] Patient has been identified by name and [...] advise. Hyacinth Jaramillo Pss documented in this encounterGlenbeigh Hospital04-14-2022 Miscellaneous Notes* Telephone Encounter - Slime Peterson LPN - 01/09/2022 4:16 PM EDT Called pt and pharmacy verified. * Telephone Encounter - Slime Peterson LPN - 01/09/2022 3:35 PM EDT there are multiple [facility] in [facility]. Need address or phone number. * Telephone Encounter - Jenna Ewing Pss - 01/09/2022 1:29 PM EDT Patient's called back and said [facility] in [place] told him they can't fill this script becauseit is not due for a refill yet. In addition to that, they [place] decided [place]. Wants to know if the 8 day supply can now be sent to [facility] in [place], [place] instead. That is their vacation destination and will be arriving there in about 4 hours. Please advise at [phone] * Telephone Encounter - Matheus Fajardo MD [...] AM EDT Pt is on vacation in [place] & forgot medication at home, asking for a refill for 8 days to [facility] [place] JENAE: 02/27/21 NOV: None scheduled Last Refill: 12/16/21 #90 0 refills Beatrice Rm LPN documented in this encounterGlenbeigh Hospital04-12-2022 History of Present illness Narrative* Kimberly Rothman APRN.[employer] - 01/07/2022 5:15 PM EDT Images from the original note were not included. [facility] [place] Follow-up Virtual Visit Follow-up note This visit was conducted via [employer] with patient permission as patient is unable to log into Lumora/Panorama9 platform. January 07, 2022 HPI: Ms. Herron [...] but not yet completed. Had gone to [place] [facility] in the past and has been [...] 07/07/2005 Infrarenal stent 2003 Coronary atherosclerosis 07/07/2005 DE, PTCA 1988. ST elev [place], RCA stent November 2003. Coronary atherosclerosis of unspecified type of vessel, morongo or graft 07/07/2005 [place], PTCA 1988. ST elev [place], RCA stent November 2003. DDD (degenerative disc [...] TUMOR POLYP LESION SNARE TQ 05/22/2017 multiple yqmhkj-atdhd-boym follow-up CORONARY ENDARTERCOMY OPEN ANY METHOD 1988 [...] therapy. Encouraged continued exercise at home within [facility] on 01/07/22 CONSULT TO PHYSICAL THERAPY Kimberly Rothman APRN.CHELA I spent a total of 20 minutes on the date of the service which included preparing to see the patient, bnxd-hk-autf patient care, completing clinical documentation, obtaining and/or reviewing separately obtained history, performing a medically appropriate examination, counseling and educating the pat ient/family/caregiver and communicating results to the patient/family/caregiver. documented in this encounterGlenbeigh Hospital04-08-2022 Miscellaneous Notes* Telephone Encounter - Ricardo [...] Jessica Rothman CNP when pt back in [facility] if needed. Manohar Millard MD * Telephone Encounter - Yaima Lopez LPN - 01/02/2022 11:38 AM EDT Patient's calling to inquire about EMG results and follow up instructions. Patient will be out of town 01/07/22 - 01/15/22 if needing OV scheduled. Yaima Lopez LPN documented in this encounterGlenbeigh Hospital04-01-2022 Miscellaneous Notes* Telephone Encounter - Yaima Lopez LPN - 12/27/2021 4:28 PM EDT Patient had EMG completed today, needing to schedule follow up with Kevin CARRILLO CNP or CHRIS to review results. Yaima Lopez LPN documented in this encounterGlenbeigh Hospital04-01-2022 History of Present illness Narrative* Ambrose [...] EMG Ambrose Ruano MD documented in this encounterGlenbeigh Hospital03-27-2022 Miscellaneous Notes* Telephone Encounter - Marisela Montemayor - 12/22/2021 3:11 PM EDT patient scheduled * Telephone Encounter - Yolie Enrique - 12/19/2021 2:46 PM EDT 1st attempt to schedule - LM. Yolie Enrique * Telephone Encounter - Yaima Lopez LPN - 12/18/2021 1:44 PM EDT Spoke to patient's and willing to have the EMG scheduled at [facility]. Will have PSS call patient's to assist in scheduling. Yaima Lopez LPN * Telephone Encounter - Yaima Lopez LPN - 12/18/2021 12:52 PM EDT FYI. Is a new EMG order needed for patient to be scheduled within the CC? Copy of EMG received from [facility], ready for Provider to review. Yaima Lopez LPN * Telephone Encounter - Azul Rooney RN - 12/18/2021 11:06 AM EDT returns call and reports that fall at home occurred on September 25, 2021. Azlu Rooney RN * Telephone Encounter - Yaima Lopez LPN - 12/18/2021 10:40 AM EDT Message left for patients to call office. Needing to Clarify the date of patient's big fall at home. Needing the month and day. Dr Millard would like patient to be scheduled in [place] for the EMG, wanting to keep within the CC. Yaima Lopez LPN documented in this encounterGlenbeigh Hospital02-07-2018 History of Past illness Narrative* Problem [...] of this encounter (statuses as of 12/27/2021) [facility] Narrative* Problem [...] of this encounter (statuses as of 12/27/2021) [facility] Narrative* Problem [...] of this encounter (statuses as of 01/07/2022) [facility] Narrative* Problem [...] of this encounter (statuses as of 01/08/2022) [facility] Narrative* Problem [...] of this encounter (statuses as of 01/10/2022) [facility] N[facility]ative* Problem [...] of this encounter (statuses as of 01/28/2022) [facility] Narrative* Problem [...] of this encounter (statuses as of 02/11/2022) [facility] Narrative* Problem [...] of this encounter (statuses as of 03/25/2022) [facility] Narrative* Problem [...] of this encounter (statuses as of 05/26/2022) [facility] Narrative* Problem [...] of this encounter (statuses as of 06/26/2022) [facility] N[facility]ative* Problem [...] of this encounter (statuses as of 08/25/2022) [facility] Narrative* Problem [...] of this encounter (statuses as of 09/07/2022) [facility] N[facility]ative* Problem [...] of this encounter (statuses as of 09/08/2022) [facility] N[facility]ative* Problem [...] of this encounter (statuses as of 10/04/2022) [facility] N[facility]ative* Problem [...] of this encounter (statuses as of 12/02/2022) [facility]* Problem [...] of this encounter (statuses as of 01/06/2023) [facility]* Problem [...] of this encounter (statuses as of 02/03/2023) [facility] N[facility]ative* Problem [...] of this encounter (statuses as of 02/05/2023) [facility]* Problem [...] of this encounter (statuses as of 03/03/2023) [facility] N[facility]ative* Problem [...] of this encounter (statuses as of 03/25/2023) [facility]* Problem [...] of this encounter (statuses as of 03/31/2023) [facility]* Problem [...] of this encounter (statuses as of 06/26/2023) [facility] N[facility]ative* Problem [...] of this encounter (statuses as of 08/06/2023) [facility] N[facility]ative* Problem [...] of this encounter (statuses as of 12/30/2023) [facility]* Diagnosis 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 Left leg pain Pain in limb Recurrent falls Personal history of fall Left leg weakness Other musculoskeletal symptoms referable to limbs [facility] Left leg pain- Primary Pain in limb Recurrent falls Personal history of fall Left leg weakness Other musculoskeletal symptoms referable to limbs 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) [facility] Diagnosis Anxiety state Anxiety state, unspecified [facility] Diagnosis Urgency incontinence Urge incontinence [facility] Diagnosis Left leg pain- Primary Pain in limb Left leg weakness Other musculoskeletal symptoms referable to limbs Gait abnormality Abnormality of gait [facility] Diagnosis Onset Date Resolution Status Aortic valve stenosis, acquired acute Atherosclerotic heart diseas e of morongo coronary artery without angina pectoris chronic Bilateral carotid artery disease chronic Essential hypertension chron ic Mixed hyperlipidemia chronic Presence of stent in coronary artery November, chronic 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 February, [facility] Work Phone: Evaluation note* Diagnosis Left leg pain Pain in limb Recurrent falls Personal history of fall Left leg weakness Other musculoskeletal symptoms referable to limbs [facility] Diagnosis Anterior cervical lymphadenopathy- Primary Enlargement of lymph nodes Mixed hyperlipidemia Need for influenza vaccination Need for prophylactic vaccination and inoculation against influenza Gait abnormality Abnormality of gait 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) Type II or unspecified type diabetes mellitus with neurological manifestations, not stated as uncontrolled Need for COVID-19 vaccine [facility] Diagnosis Urgency incontinence- Primary Urge [...] stated as uncontrolled [facility] Diagnosis 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)- Primary Type II or unspecified type diabetes mellitus with neurological manifestations, not stated as uncontrolled Gait abnormality Abnormality of gait At risk for falling Personal history of fall [facility] Diagnosis Anxiety state Anxiety state, unspecified [facility] Diagnosis 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) Type II or unspecified type diabetes mellitus with neurological manifestations, not stated as uncontrolled [facility] Mixed hyperlipidemia [facility] Diagnosis Cellulitis of left ear- Primary [facility] Diagnosis 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 [facility] Diagnosis 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) Type II or unspecified type diabetes mellitus with neurological manifestations, not stated as uncontrolled [facility] Diagnosis Anxiety state Anxiety state, unspecified [facility] Diagnosis Mixed hyperlipidemia [facility] Diagnosis Mixed hyperlipidemia- Primary 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) Type II or unspecified type diabetes mellitus with neurological manifestations, not stated as uncontrolled Vitamin D deficiency Unspecified vitamin D deficiency [facility] Diagnosis 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) Type II or unspecified type diabetes mellitus with neurological manifestations, not stated as uncontrolled [facility] Diagnosis Medicare annual wellness visit, [...] due to conditions classified elsewhere 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 Benign neoplasm of colon, unspecified part of colon [facility] Diagnosis Benign neoplasm of colon, unspecified part of colon [facility] Diagnosis 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) Type II or unspecified type diabetes mellitus with neurological manifestations, not stated as uncontrolled [facility] Diagnosis 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 behavioral disturbance, psychotic disturbance, mood disturbance, or anxiety, unspecified dementia type (HCC)- Primary 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 ([facility]) Sensory ataxia Lack of coordination Other polyneuropathy [facility] Diagnosis Urgency incontinence- Primary Urge incontinence [facility] Diagnosis Osteoporosis, post-menopausal Senile osteoporosis [facility] Diagnosis CAD S/P percutaneous coronary angioplasty- Primary Coronary atherosclerosis of morongo coronary artery Primary hypertension Unspecified essential hypertension Mixed hyperlipidemia JL on CPAP Obstructive sleep apnea (adult) (pediatric) PAD (peripheral artery disease) ([facility]) Peripheral vascular disease, unspecified Nonrheumatic aortic valve stenosis Aortic valve disorders S/P right coronary artery (RCA) stent placement DNR (do not resuscitate) Do not resuscitate status [facility] Diagnosis Mixed hyperlipidemia [facility] Diagnosis 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) Type II or unspecified type diabetes mellitus with neurological manifestations, not stated as uncontrolled Urgency incontinence Urge incontinence [facility] Diagnosis 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)- Primary Type II or unspecified type diabetes mellitus with neurological manifestations, not stated as uncontrolled Nonrheumatic aortic valve stenosis Aortic valve disorders 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 behavioral disturbance, psychotic disturbance, mood disturbance, or anxiety, unspecified dementia type (HCC) 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 (HCC) Gait abnormality Abnormality of gait Polycythemia Polycythemia vera [facility] Diagnosis 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 behavioral disturbance, psychotic disturbance, mood disturbance, or anxiety, unspecified dementia type (HCC)- Primary Parkinsonism, unspecified Parkinsonism type (HCC) Sensory ataxia Lack of coordination Other polyneuropathy B12 deficiency Other B-complex deficiencies [facility] Diagnosis 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 behavioral disturbance, psychotic disturbance, mood disturbance, or anxiety, unspecified dementia type (HCC) 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 (HCC) Gait abnormality Abnormality of gait [facility]* Diagnosis Anxiety state Anxiety state, unspecified [facility] Diagnosis 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) Type II or unspecified type diabetes mellitus with neurological manifestations, not stated as uncontrolled Urgency incontinence Urge incontinence [facility]* Diagnosis TIA (transient ischemic attack)- Primary Unspecified transient cerebral ischemia 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 Meningioma (HCC) Benign neoplasm of cerebral meninges 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 behavioral disturbance, psychotic disturbance, mood disturbance, or anxiety, unspecified dementia type (HCC) Bilateral carotid artery stenosis Occlusion and stenosis of carotid artery without mention of cerebral infarction Influenza Influenza with other respiratory manifestations [facility] Diagnosis Acute cough- Primary Acute cough [facility]* Diagnosis Medicare annual wellness visit, [...] Parkinsonism type (HCC) [facility]* Diagnosis Fall, initial encounter- Primary Contusion of knee, unspecified laterality, initial encounter Contusion of right hand, initial encounter Contusion of dorsum of right hand Skin tear of right hand without complication, initial encounter Contusion of knee, unspecified laterality, initial encounter Fall, initial encounter Contusion of right hand, initial encounter [facility] Diagnosis Contusion of knee, unspecified laterality, initial encounter Fall, initial encounter Contusion of right hand, initial encounter [facility] Diagnosis Coronary artery disease due to lipid rich plaque- Primary PVD (peripheral vascular disease) Peripheral vascular disease, unspecified Mitral regurgitation and aortic stenosis Mitral valve insufficiency and aortic valve stenosis Bilateral carotid artery stenosis Occlusion and stenosis of carotid artery without mention of cerebral infarction Abdominal aortic aneurysm (AAA) without rupture, unspecified part Smoker Tobacco use disorder [facility]* Diagnosis Aortic valve stenosis, etiology of cardiac valve disease unspecified- Primary [facility]* Diagnosis 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 [facility]* Diagnosis 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) Type II or unspecified type diabetes mellitus with neurological manifestations, not stated as uncontrolled documented in this encounter [facility] for referral (narrative)* Outpatient Procedure (Routine) - Authorized Specialty Diagnoses / Procedures Referred By Candice ness Referred To [facility] Diagnoses Left leg pain Left leg weakness Gait abnormality Procedures PVR [facility] NON-INVASIVE PHYSIOLOGIC STUDY EXTREMITY 3 Matheus Toledo MD [address] [place] [address] [facility] [address] [place] [address] Referral ID Status Reason Start Date Expiration Date Visits Requested Visits Authorized [id number] Authorized Auto-Generat ed Referral 03/24/2022 03/24/2023 1 1 [facility] for referral (narrative)* Diagnostic Procedure Only (Routine) - Authorized Specialty Diagnoses / Procedures Referred By Candice ness Referred To Contact US IMAGING Diagnoses Anterior cervical lymphadenopathy Procedures US THYROID/PARATHYROID US SOFT TISSUE HEAD & NECK REAL TIME IMGE Matheus Gee MD [address] [place] [address] [facility] Referral ID Status Reason Start Date Expiration Date Visits Requested Visits Authorized [id number] Authorized Auto-Generat ed Referral 06/26/2022 07/26/2023 1 1 [facility] for referral (narrative)* Outpatient Procedure (Routine) - [...] SPEC&COLR D Elvira Gunter DO [address] [place] [address] [facility] [address] [address] Referral ID Status Reason Start Date Expiration Date Visits Requested Visits Authorized [id number] New Request Auto-Generat ed Referral 05/18/2024 05/18/2025 1 1 [facility] for referral (narrative)No reason for referral information [facility] Narrative* Diagnostic Procedure Only (Routine) - Closed Specialty Diagnoses / Procedures Referred By Contac t Referred To Contact XR IMAGING Diagnoses Osteoporosis, post-menopausal Procedures DXA-AXIAL SKELETON DXA BONE DENSITY STUDY 1/> SITES AXIAL SKMatheus Blackman MD [address] [place] [address] [place] [address] Referral ID Status Reason Start Date Expiration Date V isits Requested Visits Authorized [id number] Closed Auto-Generate d Referral 02/18/2024 09/27/2024 1 1 [facility] for visit Narrative* Diagnostic Procedure Only (Urgent) - Closed Specialty Diagnoses / Procedures Referred By Contac t Referred To Contact XR IMAGING Diagnoses Fall, initial encounter Contusion of right hand, initial encounter Procedures XR HAND GENERAL 3V PA/LAT/OBL RIGHT RADEX HAND MINIMUM 3 VIEWS Thea Cordoba, BAG CHECKER.[employer] [address] [place] [address] Phone: tel: fax: [facility] [phone] Referral ID Status Reason Start Date Expiration Date V isits Requested Visits Authorized [id number] Closed Auto-Generate d Referral 03/14/2025 04/13/2026 1 1 [facility] Summary Purpose Family History No Family History Records Found Relationship Condition Age at Onset Recorded Date/T kapil father Myocardial infarction Unknown Cardiac disease Unknown Cerebrovascular accident (CVA) Unknown Diabetes mellitus Unknown brother Coronary artery disease Unknown Advance Directives No Advanced Directives Records FoundDocuments on File Type Date Recorded 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 Advance Directive(s) 05/22/2017 9:25 AM Documents on File Type Date Recorded 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 Advance Directive(s) 05/22/2017 9:25 AM Advance Directive Response Recorded Date/ Time Living Will Yes July 26 4:37pm Power of Electrician Technician Yes July 26, 2021 4:37pm Reason for Referral Specialty Diagnoses / Procedures Referred By Candice t Referred To Contact [facility] Diagnoses Left leg pain Recurrent falls Left leg weakness 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) Procedures CONSULT TO PHYSICAL THERAPY PHYSICAL THERAPY EVALUATION HIGH COMPLEX 45 MINS Kimberly Rothman, BAG CHECKER[employer] [address] [place] [address] [facility] [address] [place] [address] Referral ID Status Reason Start Date Expiration Date Visits Requested Visits Authorized [id number] Pending Review Auto-Generat ed Referral 01/07/2022 01/07/2023 1 1 Specialty Diagnoses / Procedures Referred By Candice t Referred To Contact Urology Diagnoses Urgency incontinence Mixed incontinence Procedures CONSULT TO UROLOGY Matheus Fajardo MD [address] [place] [address] Referral ID Status Reason Start Date Expiration Date Visits Requested Visits Authorized [id number] Ref Not Required PCP Requested Referral 09/05/2022 09/05/2023 1 1 Specialty Diagnoses / Procedures Referred By Candice t Referred To Contact General Surgery Diagnoses Benign neoplasm of colon, unspecified part of colon Procedures CONSULT TO GENERAL SURGERY OFFICE/OUTPATIENT [facility] 60 MINUTES Matheus Fajardo MD [address] [place] [address] Referral ID Status Reason Start Date Expiration Date Visits Requested Visits Authorized [id number] Authorized PCP Requested Referral 02/18/2024 02/17/2025 1 1 Specialty Diagnoses / Procedures Referred By Contac t Referred To Contact Cardiology Diagnoses 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 Procedures CONSULT TO CARDIOLOGY OFFICE/OUTPATIENT [facility] 60 MINUTES Matheus Fajardo MD [address] [place] [address] Referral ID Status Reason Start Date Expiration Date Visits Requested Visits Authorized [id number] Authorized PCP Requested Referral 02/18/2024 02/17/2025 1 1 Specialty Diagnoses / Procedures Referred By Contac t Referred To Contact XR IMAGING Diagnoses Osteoporosis, post-menopausal Procedures DXA-AXIAL SKELETON DXA BONE DENSITY STUDY / SITES AXIAL SKEL Matheus Fajardo MD [address] [place] [address] Xr Imaging [facility] Referral ID Status Reason Start Date Expiration Date Visits Requested Visits Authorized [id number] Authorized Auto-Generat ed Referral 02/18/2024 09/27/2024 1 [...] COMPLEX 45 MINS Matheus Fajardo MD [address] [place] [address] [facility] [address] [place] [address] Referral ID Status Reason Start Date Expiration Date Visits Requested Visits Authorized [id number] Authorized Auto-Generat ed Referral 09/28/2023 09/27/2024 99 99 Chief Complaint and Reason for Visit Chief Complaint 9 M FU ASHD, AV STENOSIS Reason for Visit Aortic valve stenosi s, acquired Atherosclerotic heart disease of morongo coronary artery without angina pectoris Bilateral carotid [...] section and content) DATE CREATED AUTHOR 03/23/2018 [facility] DATE CREATED AUTHOR AUTHOR'S ORGANIZ ATION 03/23/2018 [facility] DATE CREATED AUTHOR AUTHOR'S ORGANIZ ATION 11/29/2024 [facility] DATE CREATED AUTHOR AUTHOR'S ORGANIZ ATION 03/06/2025 [facility] DATE CREATED AUTHOR AUTHOR'S ORGANIZ ATION 05/25/2025 [facility] DATE CREATED AUTHOR AUTHOR'S ORGANIZ ATION 06/03/2025 [facility] Source Comments (unrecognize d section and content) In the event this informatio n is protected by the Federal Confidentiality of Alcohol and Drug Abuse Patient Records regulations: The Federal rules restrict any use of the information to criminally investigate or prosecute any alcohol or drug abuse patient.[facility] the event this information is protected by the Federal Confidentiality of Alcohol and Drug Abuse Patient Records regulations: The Federal rules restrict any use of the information to criminally investigate or prosecute any alcohol or drug abuse patient.[facility] HospitalIn the event this information is protected by the Federal Confidentiality of Alcohol and Drug Abuse Patient Records regulations: The Federal rules restrict any use of the information to criminally investigate or prosecute any alcohol or drug abuse patient.[facility] HospitalIn the event this information is protected by the Federal Confidentiality of Alcohol and Drug Abuse Patient Records regulations: The Federal rules restrict any use of the information to criminally investigate or prosecute any alcohol or drug abuse patient.[facility] Hospital[facility] the event this information is protected by the Federal Confidentiality of Alcohol and Drug Abuse Patient Records regulations: The Federal rules restrict any use of the information to criminally investigate or prosecute any alcohol or drug abuse patient.[facility] HospitalIn the event this information is protected by the Federal Confidentiality of Alcohol and Drug Abuse Patient Records regulations: The Federal rules restrict any use of the information to criminally investigate or prosecute any alcohol or drug abuse patient.[facility] HospitalIn the event this information is protected by the Federal Confidentiality of Alcohol and Drug Abuse Patient Records regulations: The Federal rules restrict any use of the information to criminally investigate or prosecute any alcohol or drug abuse patient.[facility] HospitalIn the event this information is protected by the Federal Confidentiality of Alcohol and Drug Abuse Patient Records regulations: The Federal rules restrict any use of the information to criminally investigate or prosecute any alcohol or drug abuse patient.[facility] HospitalIn the event this information is protected by the Federal Confidentiality of Alcohol and Drug Abuse Patient Records regulations: The Federal rules restrict any use of the information to criminally investigate or prosecute any alcohol or drug abuse patient.[facility] HospitalIn the event this information is protected by the Federal Confidentiality of Alcohol and Drug Abuse Patient Records regulations: The Federal rules restrict any use of the information to criminally investigate or prosecute any alcohol or drug abuse patient.[facility] HospitalIn the event this information is protected by the Federal Confidentiality of Alcohol and Drug Abuse Patient Records regulations: The Federal rules restrict any use of the information to criminally investigate or prosecute any alcohol or drug abuse patient.[facility] HospitalIn the event this information is protected by the Federal Confidentiality of Alcohol and Drug Abuse Patient Records regulations: The Federal rules restrict any use of the information to criminally investigate or prosecute any alcohol or drug abuse patient.[facility] HospitalIn the event this information is protected by the Federal Confidentiality of Alcohol and Drug Abuse Patient Records regulations: The Federal rules restrict any use of the information to criminally investigate or prosecute any alcohol or drug abuse patient.[facility] HospitalIn the event this information is protected by the Federal Confidentiality of Alcohol and Drug Abuse Patient Records regulations: The Federal rules restrict any use of the information to criminally investigate or prosecute any alcohol or drug abuse patient.[facility] HospitalIn the event this information is protected by the Federal Confidentiality of Alcohol and Drug Abuse Patient Records regulations: The Federal rules restrict any use of the information to criminally investigate or prosecute any alcohol or drug abuse patient.[facility] HospitalIn the event this information is protected by the Federal Confidentiality of Alcohol and Drug Abuse Patient Records regulations: The Federal rules restrict any use of the information to criminally investigate or prosecute any alcohol or drug abuse patient.[facility] HospitalIn the event this information is protected by the Federal Confidentiality of Alcohol and Drug Abuse Patient Records regulations: The Federal rules restrict any use of the information to criminally investigate or prosecute any alcohol or drug abuse patient.[facility] HospitalIn the event this information is protected by the Federal Confidentiality of Alcohol and Drug Abuse Patient Records regulations: The Federal rules restrict any use of the information to criminally investigate or prosecute any alcohol or drug abuse patient.[facility] HospitalIn the event this information is protected by the Federal Confidentiality of Alcohol and Drug Abuse Patient Records regulations: The Federal rules restrict any use of the information to criminally investigate or prosecute any alcohol or drug abuse patient.[facility] HospitalIn the event this information is protected by the Federal Confidentiality of Alcohol and Drug Abuse Patient Records regulations: The Federal rules restrict any use of the information to criminally investigate or prosecute any alcohol or drug abuse patient.[facility] HospitalIn the event this information is protected by the Federal Confidentiality of Alcohol and Drug Abuse Patient Records regulations: The Federal rules restrict any use of the information to criminally investigate or prosecute any alcohol or drug abuse patient.[facility] HospitalIn the event this information is protected by the Federal Confidentiality of Alcohol and Drug Abuse Patient Records regulations: The Federal rules restrict any use of the information to criminally investigate or prosecute any alcohol or drug abuse patient.[facility] HospitalIn the event this information is protected by the Federal Confidentiality of Alcohol and Drug Abuse Patient Records regulations: The Federal rules restrict any use of the information to criminally investigate or prosecute any alcohol or drug abuse patient.[facility] HospitalIn the event this information is protected by the Federal Confidentiality of Alcohol and Drug Abuse Patient Records regulations: The Federal rules restrict any use of the information to criminally investigate or prosecute any alcohol or drug abuse patient.[facility] HospitalIn the event this information is protected by the Federal Confidentiality of Alcohol and Drug Abuse Patient Records regulations: The Federal rules restrict any use of the information to criminally investigate or prosecute any alcohol or drug abuse patient.[facility] HospitalIn the event this information is protected by the Federal Confidentiality of Alcohol and Drug Abuse Patient Records regulations: The Federal rules restrict any use of the information to criminally investigate or prosecute any alcohol or drug abuse patient.[facility] HospitalIn the event this information is protected by the Federal Confidentiality of Alcohol and Drug Abuse Patient Records regulations: The Federal rules restrict any use of the information to criminally investigate or prosecute any alcohol or drug abuse patient.[facility] HospitalIn the event this information is protected by the Federal Confidentiality of Alcohol and Drug Abuse Patient Records regulations: The Federal rules restrict any use of the information to criminally investigate or prosecute any alcohol or drug abuse patient.[facility] HospitalIn the event this information is protected by the Federal Confidentiality of Alcohol and Drug Abuse Patient Records regulations: The Federal rules restrict any use of the information to criminally investigate or prosecute any alcohol or drug abuse patient.[facility] HospitalIn the event this information is protected by the Federal Confidentiality of Alcohol and Drug Abuse Patient Records regulations: The Federal rules restrict any use of the information to criminally investigate or prosecute any alcohol or drug abuse patient.[facility] HospitalIn the event this information is protected by the Federal Confidentiality of Alcohol and Drug Abuse Patient Records regulations: The Federal rules restrict any use of the information to criminally investigate or prosecute any alcohol or drug abuse patient.[facility] HospitalIn the event this information is protected by the Federal Confidentiality of Alcohol and Drug Abuse Patient Records regulations: The Federal rules restrict any use of the information to criminally investigate or prosecute any alcohol or drug abuse patient.[facility] HospitalIn the event this information is protected by the Federal Confidentiality of Alcohol and Drug Abuse Patient Records regulations: The Federal rules restrict any use of the information to criminally investigate or prosecute any alcohol or drug abuse patient.[facility] HospitalIn the event this information is protected by the Federal Confidentiality of Alcohol and Drug Abuse Patient Records regulations: The Federal rules restrict any use of the information to criminally investigate or prosecute any alcohol or drug abuse patient.[facility] HospitalIn the event this information is protected by the Federal Confidentiality of Alcohol and Drug Abuse Patient Records regulations: The Federal rules restrict any use of the information to criminally investigate or prosecute any alcohol or drug abuse patient.[facility] HospitalIn the event this information is protected by the Federal Confidentiality of Alcohol and Drug Abuse Patient Records regulations: The Federal rules restrict any use of the information to criminally investigate or prosecute any alcohol or drug abuse patient.[facility] HospitalIn the event this information is protected by the Federal Confidentiality of Alcohol and Drug Abuse Patient Records regulations: The Federal rules restrict any use of the information to criminally investigate or prosecute any alcohol or drug abuse patient.[facility] HospitalIn the event this information is protected by the Federal Confidentiality of Alcohol and Drug Abuse Patient Records regulations: The Federal rules restrict any use of the information to criminally investigate or prosecute any alcohol or drug abuse patient.[facility] HospitalIn the event this information is protected by the Federal Confidentiality of Alcohol and Drug Abuse Patient Records regulations: The Federal rules restrict any use of the information to criminally investigate or prosecute any alcohol or drug abuse patient.[facility] HospitalIn the event this information is protected by the Federal Confidentiality of Alcohol and Drug Abuse Patient Records regulations: The Federal rules restrict any use of the information to criminally investigate or prosecute any alcohol or drug abuse patient.[facility] HospitalIn the event this information is protected by the Federal Confidentiality of Alcohol and Drug Abuse Patient Records regulations: The Federal rules restrict any use of the information to criminally investigate or prosecute any alcohol or drug abuse patient.[facility] HospitalIn the event this information is protected by the Federal Confidentiality of Alcohol and Drug Abuse Patient Records regulations: The Federal rules restrict any use of the information to criminally investigate or prosecute any alcohol or drug abuse patient.[facility] HospitalIn the event this information is protected by the Federal Confidentiality of Alcohol and Drug Abuse Patient Records regulations: The Federal rules restrict any use of the information to criminally investigate or prosecute any alcohol or drug abuse patient.[facility] HospitalIn the event this information is protected by the Federal Confidentiality of Alcohol and Drug Abuse Patient Records regulations: The Federal rules restrict any use of the information to criminally investigate or prosecute any alcohol or drug abuse patient.[facility] HospitalIn the event this information is protected by the Federal Confidentiality of Alcohol and Drug Abuse Patient Records regulations: The Federal rules restrict any use of the information to criminally investigate or prosecute any alcohol or drug abuse patient.[facility] HospitalIn the event this information is protected by the Federal Confidentiality of Alcohol and Drug Abuse Patient Records regulations: The Federal rules restrict any use of the information to criminally investigate or prosecute any alcohol or drug abuse patient.[facility] HospitalIn the event this information is protected by the Federal Confidentiality of Alcohol and Drug Abuse Patient Records regulations: The Federal rules restrict any use of the information to criminally investigate or prosecute any alcohol or drug abuse patient.[facility] HospitalIn the event this information is protected by the Federal Confidentiality of Alcohol and Drug Abuse Patient Records regulations: The Federal rules restrict any use of the information to criminally investigate or prosecute any alcohol or drug abuse patient.[facility] HospitalIn the event this information is protected by the Federal Confidentiality of Alcohol and Drug Abuse Patient Records regulations: The Federal rules restrict any use of the information to criminally investigate or prosecute any alcohol or drug abuse patient.[facility] HospitalIn the event this information is protected by the Federal Confidentiality of Alcohol and Drug Abuse Patient Records regulations: The Federal rules restrict any use of the information to criminally investigate or prosecute any alcohol or drug abuse patient.[facility] HospitalIn the event this information is protected by the Federal Confidentiality of Alcohol and Drug Abuse Patient Records regulations: The Federal rules restrict any use of the information to criminally investigate or prosecute any alcohol or drug abuse patient.[facility] HospitalIn the event this information is protected by the Federal Confidentiality of Alcohol and Drug Abuse Patient Records regulations: The Federal rules restrict any use of the information to criminally investigate or prosecute any alcohol or drug abuse patient.[facility] HospitalIn the event this information is protected by the Federal Confidentiality of Alcohol and Drug Abuse Patient Records regulations: The Federal rules restrict any use of the information to criminally investigate or prosecute any alcohol or drug abuse patient.[facility] HospitalIn the event this information is protected by the Federal Confidentiality of Alcohol and Drug Abuse Patient Records regulations: The Federal rules restrict any use of the information to criminally investigate or prosecute any alcohol or drug abuse patient.[facility] HospitalIn the event this information is protected by the Federal Confidentiality of Alcohol and Drug Abuse Patient Records regulations: The Federal rules restrict any use of the information to criminally investigate or prosecute any alcohol or drug abuse patient.[facility] HospitalIn the event this information is protected by the Federal Confidentiality of Alcohol and Drug Abuse Patient Records regulations: The Federal rules restrict any use of the information to criminally investigate or prosecute any alcohol or drug abuse patient.[facility] HospitalIn the event this information is protected by the Federal Confidentiality of Alcohol and Drug Abuse Patient Records regulations: The Federal rules restrict any use of the information to criminally investigate or prosecute any alcohol or drug abuse patient.[facility] Reason for Visit (unrecogniz ed section and content) Reason Onset Date Comments EMG 12/27/2021 Specialty Diagnoses / Procedures Referred By Candice ness Referred To Contact [facility] Diagnoses Left leg pain Recurrent falls Left leg weakness Procedures EMG(NEURO/NI) NERVE CONDUCTION STUDIES 9-10 STUDIES Manohar Millard Jr., MD [address] [id number] [facility] [address] [place] [address] Referral ID Status Reason Start Date Expiration Date V isits Requested Visits Authorized [id number] Closed Auto-Generate d Referral 12/13/2021 12/13/2022 1 [...] colon Procedures CONSULT TO GENERAL SURGERY OFFICE/OUTPATIENT [facility] 60 MINUTES Matheus Fajardo MD [address] [place] [address] Referral ID Status Reason Start Date Expiration Date V isits Requested Visits Authorized [id number] Closed PCP Requested Referral 02/18/2024 02/17/2025 1 1 Reason Onset Date Comments Refill Request 04/11/2024 Reason Comments Eval for Possible Dementia Neuropathy Specialty Diagnoses / Procedures Referred By Contac t Referred To Contact Neurology Diagnoses Tremor, essential Gait abnormality Cognitive decline Procedures CONSULT TO NEUROLOGY OFFICE/OUTPATIENT [facility] 60 MINUTES Matheus Fajardo MD [address] [place] [address] Referral ID Status Reason Start Date Expiration Date V isits Requested Visits Authorized [id number] Closed PCP Requested Referral 10/15/2023 10/14/2024 1 1 Reason Comments Results Reason Comments [facility] Referral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 Specialty Diagnoses / Procedures Referred By Contac t Referred To Contact Cardiology Diagnoses 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 Procedures CONSULT TO CARDIOLOGY OFFICE/OUTPATIENT [facility] 60 MINUTES Matheus Fajardo MD [address] [place] [address] Referral ID Status Reason Start Date Expiration Date V isits Requested Visits Authorized [id number] Closed PCP Requested Referral 02/18/2024 02/17/2025 1 [...] COMPLEX 45 MINS Matheus Fajardo MD [address] [place] [address] [facility] [address] [place] [address] Referral ID Status Reason Start Date Expiration Date Visits Requested Visits Authorized [id number] Authorized Auto-Generat ed Referral 09/28/2023 09/27/2024 99 [...] Care Teams (unrecognized sec tion and content) Travel Registered Nurse Nicu Relationship Specialty Start Date End Date Matheus Fajardo MD [address] [place], [place] [id number] PCP - General 04/24/05 Travel Registered Nurse Nicu Relationship Specialty Start Date End Date Matheus Fajardo MD [address] [place], [place] [address] PCP - General 04/24/05 Travel Registered Nurse Nicu Relationship Specialty Start Date End Date Matheus Fajardo MD [address] [place], [place] [id number] PCP - General 04/24/05 Travel Registered Nurse Nicu Relationship Specialty Start Date End Date Matheus Fajardo MD [address] [place], [place] [id number] PCP - General 04/24/05 Travel Registered Nurse Nicu Relationship Specialty Start Date End Date Matheus Fajardo MD [address] [place] [address] PCP - General 04/24/05 Travel Registered Nurse Nicu Relationship Specialty Start Date End Date Matheus Fajardo MD [address] [place] [address] PCP - General 04/24/05 Travel Registered Nurse Nicu Relationship Specialty Start Date End Date Matheus Fajardo MD [address] [place] [address] PCP - General 04/24/05 Travel Registered Nurse Nicu Relationship Specialty Start Date End Date Matheus Fajardo MD [address] [place] [address] PCP - General 04/24/05 Travel Registered Nurse Nicu Relationship Specialty Start Date End Date Matheus Fajardo MD [address] [place] [address] PCP - General 04/24/05 Travel Registered Nurse Nicu Relationship Specialty Start Date End Date Matheus Fajardo MD [address] [place] [address] PCP - General 04/24/05 Travel Registered Nurse Nicu Relationship Specialty Start Date End Date Matheus Fajardo MD [address] [place] [address] PCP - General 04/24/05 Travel Registered Nurse Nicu Relationship Specialty Start Date End Date Matheus Fajardo MD [address] [place] [address] PCP - General 04/24/05 Travel Registered Nurse Nicu Relationship Specialty Start Date End Date Matheus Fajardo MD [address] [place] [address] PCP - General 04/24/05 Travel Registered Nurse Nicu Relationship Specialty Start Date End Date Matheus Fajardo MD [address] [place] [address] PCP - General 04/24/05 Travel Registered Nurse Nicu Relationship Specialty Start Date End Date Matheus Fajardo MD [address] [place] [address] PCP - General 04/24/05 Travel Registered Nurse Nicu Relationship Specialty Start Date End Date Matheus Fajardo MD [address] [place] [address] PCP - General 04/24/05 Travel Registered Nurse Nicu Relationship Specialty Start Date End Date Matheus Fajardo MD [address] [place] [address] PCP - General 04/24/05 Travel Registered Nurse Nicu Relationship Specialty Start Date End Date Matheus Fajardo MD [address] [place] [address] PCP - General 04/24/05 Travel Registered Nurse Nicu Relationship Specialty Start Date End Date Matheus Fajardo MD [address] [place] [address] PCP - General 04/24/05 Travel Registered Nurse Nicu Relationship Specialty Start Date End Date Matheus Fajardo MD [address] [place] [address] PCP - General 04/24/05 Travel Registered Nurse Nicu Relationship Specialty Start Date End Date Matheus Fajardo MD [address] [place] [address] PCP - General 04/24/05 Travel Registered Nurse Nicu Relationship Specialty Start Date End Date Matheus Fajardo MD [address] [place] [address] PCP - General 04/24/05 Travel Registered Nurse Nicu Relationship Specialty Start Date End Date Matheus Fajardo MD [address] [place] [address] PCP - General 04/24/05 Travel Registered Nurse Nicu Relationship Specialty Start Date End Date Matheus Fajardo MD [address] [place] [address] PCP - General 04/24/05 Travel Registered Nurse Nicu Relationship Specialty Start Date End Date Matheus Fajardo MD [address] [place] [address] PCP - General 04/24/05 Travel Registered Nurse Nicu Relationship Specialty Start Date End Date Matheus Fajardo MD [address] [place] [address] PCP - General 04/24/05 Travel Registered Nurse Nicu Relationship Specialty Start Date End Date Matheus Fajardo MD [address] [place] [address] PCP - General 04/24/05 Travel Registered Nurse Nicu Relationship Specialty Start Date End Date Matheus Fajardo MD [address] [place] [address] PCP - General 04/24/05 Travel Registered Nurse Nicu Relationship Specialty Start Date End Date Matheus Fajardo MD [address] [place] [address] PCP - General 04/24/05 Travel Registered Nurse Nicu Relationship Specialty Start Date End Date Matheus Fajardo MD [address] [place] [address] PCP - General 04/24/05 Cookie Sewell, BAG CHECKER.[employer] [address] [place] [address] [employer] Administrator Internal Medicine 09/05/24 Travel Registered Nurse Nicu Relationship Specialty Start Date End Date Matheus Fajardo MD [address] [place] [address] PCP - General 04/24/05 Cookie Sewell, BAG CHECKER.[employer] [address] [place] [address] [facility] Internal Medicine 09/05/24 Travel Registered Nurse Nicu Relationship Specialty Start Date End Date Matheus Fajardo MD [address] [facility] [place] [address] PCP - General 04/24/05 Cookie Sewell, BAG CHECKER.[employer] [address] [place] [address] [facility] Internal [facility] 09/05/24 Travel Registered Nurse Nicu Relationship Specialty Start Date End Date Matehus Fajardo MD [address] [place] [address] PCP - General 04/24/05 Cookie Sewell, BAG CHECKER.[employer] [address] [place] [address] [facility] Internal Medicine 09/05/24 Travel Registered Nurse Nicu Relationship Specialty Start Date End Date Matheus Fajardo MD [address] [place] [address] PCP - General 04/24/05 Cookie Sewell, BAG CHECKER.[employer] [address] [place] [address] [facility] Internal Medicine 09/05/24 Travel Registered Nurse Nicu Relationship Specialty Start Date End Date Matheus Fajardo MD [address] [place] [address] PCP - General 04/24/05 Cookie Sewell, BAG CHECKER.[employer] [address] [place] [address] [facility] Internal Medicine 09/05/24 Travel Registered Nurse Nicu Relationship Specialty Start Date End Date Matheus Fajardo MD [address] [place] [address] PCP - General 04/24/05 Cookie Sewell, BAG CHECKER.[employer] [address] [place] [address] [facility] Internal Medicine 09/05/24 Travel Registered Nurse Nicu Relationship Specialty Start Date End Date Matheus Fajardo MD [address] [place] [address] PCP - General 04/24/05 Cookie Sewell, BAG CHECKER.[employer] [address] [place] [address] [facility] Internal Medicine 09/05/24 Travel Registered Nurse Nicu Relationship Specialty Start Date End Date Matheus Fajardo MD [address] [place], [place] [address] PCP - General 04/24/05 Cookie Sewell, BAG CHECKER.[employer] [address] [place], [place] [address] [facility] Internal Medicine 09/05/24 Travel Registered Nurse Nicu Relationship Specialty Start Date End Date Matheus Fajardo MD [address] [place], [place] [id number] PCP - General 04/24/05 Cookie Sewell, BAG CHECKER.[employer] [address] [place], [place] [id number] [facility] Internal [facility] 09/05/24 Team Status: Active Member Role Status Dates Dr. Matheus Fajardo MD Primary Care Provider Active Team Status: [...] March 21, 2025 End: March 21, 2025 Travel Registered Nurse Nicu Relationship Specialty Start Date End Date Matheus Fajardo MD [address] [place], [place] [id number] PCP - General 04/24/05 Cookie Sewell, BAG CHECKER.[employer] [address] [place], [place] [address] [employer] Administrator Internal Medicine 09/05/24 Travel Registered Nurse Nicu Relationship Specialty Start Date End Date Matheus Fajardo MD [address] [place] [address] PCP - General 04/24/05 Cookie Sewell, BAG CHECKER.[employer] [address] [place] [address] [employer] Administrator Internal Medicine 09/05/24 Travel Registered Nurse Nicu Relationship Specialty Start Date End Date Matheus Fajardo MD [address] [place] [address] PCP - General 04/24/05 Cookie Sewell, BAG CHECKER.[employer] [address] [place] [address] [employer] Administrator Internal Medicine 09/05/24 Travel Registered Nurse Nicu Relationship Specialty Start Date End Date Matheus Fajardo MD [address] [place] [address] PCP - General 04/24/05 Cookie Sewell, BAG CHECKER.[employer] [address] [place], [place] [address] [phone] [facility] Internal Medicine 09/05/24 Goals (unrecognized section [...] BE BASED ON THE PRIMARY CLINICAL RECORDS. [facility]. provides no warranty or guarantee of the accuracy or completeness of information in this document.
[2025-09-03 17:06] LABS: Troponin T High Sens 2 HR 13 ng/L (<=14)
[2025-09-03 18:50] LABS: Troponin T High Sens 4 HR 14 ng/L (<=14)
[2025-09-03] MEDS: Azithromycin 500 MG in 0.9% Normal Saline (250mL Bag) 250 ML 250 MG IV (18:58)
[2025-09-03] MEDS: Heparin Injection (Vial) 5,000 UNIT/ML VIAL 5000 UNIT SC (22:01)
[2025-09-04] VITALS (9 sets, daily range): BP systolic 102–150; BP diastolic 57–84; PULSE 58–72; RESP 16–20; TEMP 36.3–36.9; O2SAT 88–97; BMI 23.8
--- NOTE | 2025-09-04 05:55 | MRI_ITS ---
PROCEDURE: MRI BRAIN WITHOUT CONTRAST 09/04/2025 REASON FOR EXAM: RIGHT LEG WEAKNESS TECHNIQUE: Procedure Code: MRIBR Modality: MR Procedure: BRAIN WITHOUT CONTRAST Multiplanar and multisequential MRI of the brain was performed without contrast. COMPARISON: CT head/angiography 09/03/2025. MRI 11/11/2024. FINDINGS: No regions of abnormal restricted diffusion to indicate recent infarct. No evidence for acute intracranial hemorrhage, extra-axial collection, significant mass-effect or other acute abnormality. Moderate generalized brain parenchymal volume loss, and chronic small-vessel ischemic-gliotic changes throughout the supratentorial white matter. Scattered tiny foci of chronic lacunar infarcts in the bilateral cerebellar hemispheres. Grossly preserved major vascular flow voids. Stable size/appearance of a 17 mm meningioma at the lateral left frontal convexity. No significant mass-effect or associated parenchymal edema of the subjacent left frontal lobe. Prior left orbital cataract surgery. Mild mucosal thickening in the posterior right ethmoid air cells. Remainder of the paranasal sinuses are well-aerated. No mastoid effusions. MRI/Brain without Contrast IMPRESSION: 1. No acute intracranial abnormality; no acute infarct. 2. Moderate parenchymal volume loss and chronic microangiopathic changes. 3. Stable 17 mm meningioma at the lateral left frontal convexity. Reading Location: [id number]
--- NOTE | 2025-09-04 05:55 | ECHOD_ITS ---
Reason For Study Reason For Study: TIA/CVA Procedure This was a 2D Doppler, Color Flow transthoracic echocardiogram. The patient is in sinus rhythm. The study was technically difficult. The patient was scanned supine. Exam performed portable in patient room. Left Ventricle Small left ventricular cavity. Normal left ventricular wall thickness. Left ventricular EF by Bailey's biplane: 65%. Grade of diastolic dysfunction indeterminate. No regional wall motion abnormalities noted. Right Ventricle Normal right ventricle. Normal systolic function. Unable to estimate RV systolic pressure due to insufficient tricuspid regurgitant envelope. Atria The left and right atria are normal. Estimated RA pressure: 3 mmHg. Normal atrial septum. Mitral Valve Normal mitral valve. Mitral annular calcification present. Trace mitral regurgitation. No mitral stenosis. Tricuspid Valve Normal tricuspid valve. No tricuspid stenosis. Trace tricuspid regurgitation. Aortic Valve Aortic valve is heavily calcified. Mild aortic regurgitation. There is moderate aortic stenosis. MAURISIO: 1.1 cm2, DVI: 0.3, V-max: 3 m/s, mean pressure gradient: 20 mmHg. Pulmonic Valve Normal pulmonic valve. No pulmonic stenosis. Trace pulmonic regurgitation. Great Vessels Normal sized aortic root. Normal ascending aorta. Pericardium/Pleural Epicardial fat. MMode/2D Measurements & Calculations LVIDd: 3.5 cm IVSd: 1.00 cm LVOT diam: 2.0 cm LVIDs: 2.2 cm LVPWd: 0.97 cm LVOT area: 3.2 cm2 RVDd: 3.3 cm FS: 39.0 % LAV(MOD-bp): 22.0 ml LVAd ap4: 16.8 cm2 LVAd ap2: 14.1 cm2 LAV(MOD-bp) Indexed: 12.0 ml/m2 LVLd ap4: 7.1 cm LVLd ap2: 6.9 cm LAV(MOD-sp2): 26.0 ml EDV(MOD-sp4): 33.1 ml EDV(MOD-sp2): 23.4 ml LAV(MOD-sp4): 17.3 ml EDV(sp4-el): 33.8 ml EDV(sp2-el): 24.6 ml LVAs ap4: 8.1 cm2 LVAs ap2: 7.3 cm2 LVLs ap4: 5.7 cm LVLs ap2: 5.8 cm ESV(MOD-sp4): 9.8 ml ESV(MOD-sp2): 8.1 ml ESV(sp4-el): 9.9 ml ESV(sp2-el): 7.8 ml EF(MOD-sp4): 70.3 % EF(MOD-sp2): 65.5 % EF(sp4-el): 70.7 % SV(MOD-sp4): 23.2 ml SV(MOD-sp2): 15.3 ml SV(sp4-el): 23.9 ml SI(MOD-sp4): 12.6 ml/m2 SI(MOD-sp2): 8.3 ml/m2 Ao sinus diam: 2.[address] Junction: 2.4 cm LA A4 area: 10.1 cm2 LA dimension(2D): 3.3 cm TAPSE: 1.5 cm RA A4 area: 7.4 cm2 Time Measurements MV dec time: 0.33 sec Doppler Measurements & Calculations MV E max efra: 84.4 cm/sec Lat Peak E' Efra: 8.0 cm/sec Med Peak E' Efra: 5.2 cm/sec MV A max efra: 122.3 cm/sec E/E' lat: 10.5 E/E' med: 16.3 MV E/A: 0.69 MV dec slope: 253.7 cm/sec2 Ao V2 max: 279.6 cm/sec LV V1 max: 100.4 cm/sec Ao max P.4 mmHg LV V1 max P.0 mmHg Ao V2 mean: 196.2 cm/sec LV V1 mean P.4 mmHg Ao mean P.6 mmHg LV V1 mean: 73.2 cm/sec Ao V2 VTI: 61.0 cm LV V1 VTI: 22.4 cm AV (velocity ratio): 0.37 MAURISIO(I,D): 1.2 cm2 MAURISIO(V,D): 1.2 cm2 SV(LVOT): 72.1 ml PA V2 max: 111.7 cm/sec ECHO/Echo Complete Interpretation Summary Normal left ventricular systolic function with EF: 65% by Bailey's biplane. Normal left ventricular wall motion Normal right ventricular systolic function. Moderate aortic stenosis Compared to echocardiograms in 04/22/2022 and 11/11/2024, there is no significant change. Please order routine surveillance echocardiogram in 1 year for monitoring of aortic stenosis. Ordering Physician: John Buck Referring Physician: Matheus Fajardo M.D. Performed By: Zachariah Connelly RDCS
[2025-09-04 07:03] LABS: Hematocrit 44.0 % (37-47); Hemoglobin 14.3 g/dL (12.0-15.0); Immature Granulocytes Count 0.050 X10^3/uL (0.0-0.0); Mean Corp Hgb Conc 32.5 g/dL (32-36); Mean Corpuscular Volume 87.1 fL (81-99); Mean Platelet Vol. 11.0 fl (6.2-12.0); NRBC Flagged by Analyzer 0 % (0-5); Platelet Count 192 K/mm3 (150-450); RBC Distribution Width CV 13.6 % (11.6-14.6); RBC Distribution Width SD 42.8 fl (35.1-43.9); Red Blood Count 5.05 M/mm3 (4.2-5.4); White Blood Count 9.7 K/mm3 (4.4-11.0)
[2025-09-04 07:29] LABS: Cholesterol 122 mg/dL (<=200); Low Density Lipoprotein Calc. 59 mg/dL; Triglycerides 114 mg/dL; Very Low Density Lipoprotein 23 mg/dL (5-40); cholesterol:hdl ratio screen 2.89
[2025-09-04] MEDS: Heparin Injection (Vial) 5,000 UNIT/ML VIAL 5000 UNIT SC ×2 (10:13→21:59)
--- NOTE | 2025-09-04 10:40 | RAD_ITS ---
PROCEDURE: CHEST 1 VIEW (PORTABLE) 09/04/2025 REASON FOR EXAM: HYPOXIA TECHNIQUE: Frontal view of the chest. COMPARISON: Chest x-ray dated 09/03/2025 FINDINGS: Lines: Cardiac lines overlie the chest. Heart: Heart size and configurations are within normal limits. Lungs: There are mild alveolar airspace disease processes seen in the lower lobes bilaterally. These most likely represent pneumonic infiltrates. Upper lung petersen are clear. There are no consolidative processes. There are no pleural effusions or pneumothoraces. Bones: Bony demineralization of the thorax is noted. RAD/Chest 1 View (Portable) IMPRESSION: Bilateral lower lobe airspace disease processes most likely representing pneumo raisa infiltrates. Reading Location: [id number]
[2025-09-04] MEDS: Azithromycin 500 MG in 0.9% Normal Saline (250mL Bag) 250 ML 250 MG IV (10:56)
--- NOTE | 2025-09-04 14:06 | STROKE.CONS ---
Assessment and Plan: Stroke Assessment/Plan MATTIE FOX is a 85 F with a history of Alzheimer's Dementia (recently discontinued Donepezil last week due to lack of improvement), seizures (staring off spells; last in 10/2024) on Keppra 500 mg BID, TIA (2 episodes in 10/2024 with L sided weakness and dysarthria) on ASA/statin, and neuropathy on Gabapentin 300 mg TID who presents for evaluation of episode of acute confusional state. The patient had an episode of decreased responsiveness, eyes closed, able to nod, delay in command following, disorientation, and incontinence that has improved since arrival. Exam at this time is improved but not at baseline. She is still delayed in response than her baseline. She is sitting comfortably eating her lunch and is engaging with her . She is hard of hearing and lost her hearing aid, exam was assisted by . She is alert, oriented to self and age only. Requires prompting to follow commands. Able to follow 1 step commands. Not able to follow complex or 2+ step commands. Speech with mild dysarthria. No focal weakness appreciated. Of note, she has elevated white count, recent cough and congestion, and is now on antibiotics for concern of PNA. She has been having cough and congestion for approx 1 month. She recently went on a 2 day trip to [place] where family drove. Acute Confusional State, improving DDx: acute toxic metabolic encephalopathy, seizure with post ictal state, acute ischemia - Plan for MRI brain - Please order routine EEG - Continue Keppra 500 mg BID - Continue ASA 81 mg daily and Statin 80 mg qhs - follow up LDL, A1C, MRI, and TTE (please order if not already done) - PT/OT/JANITORIAL ASSISTANT - Continue medical management of comorbidities and infection as you are - We will continue to follow Mandy Flores MD HPI Consult Data Date of Consult: 09/04/25 HPI Narrative HPI Narrative: MATTIE FOX is a 85 F with a history of Alzheimer's Dementia (recently discontinued Donepezil last week due to lack of improvement), seizures (staring off spells; last in 10/2024) on Keppra 500 mg BID, TIA (2 episodes in 10/2024 with L sided weakness and dysarthria) on ASA/statin, and neuropathy on Gabapentin 300 mg TID who presents for evaluation of episode of acute confusional state. The patient had an episode of decreased responsiveness, eyes closed, able to nod, delay in command following, disorientation, and incontinence that has improved since arrival. Exam at this time is improved but not at baseline. She is still delayed in response than her baseline. She is sitting comfortably eating her lunch and is engaging with her . She is hard of hearing and lost her hearing aid, exam was assisted by . She is alert, oriented to self and age only. Requires prompting to follow commands. Able to follow 1 step commands. Not able to follow complex or 2+ step commands. Speech with mild dysarthria. No focal weakness appreciated. Of note, she has elevated white count, recent cough and congestion, and is now on antibiotics for concern of PNA. She has been having cough and congestion for approx 1 month. She recently went on a 2 day trip to [place] where family drove. She was seen last by her neurologist on 08/31 and was noted to be intermittently dozing off, had 0/3 for memory testing, was not able to answer orientation questions. Continued to be able to follow simple commands. Nonfocal. Mild tremor noted. At that visit it appears Donepezil was discontinued as reported not much benefit. Continued on Keppra, ASA, and statin. [facility] Medical History Alzheimer's dementia Abdominal aortic aneurysm without rupture Tobacco abuse Aortic valve sclerosis Old myocardial infarction JL on CPAP PVD (peripheral vascular disease) Presence of stent in coronary artery (~12/18/03) Stenosis of infrarenal abdominal aorta due to atherosclerosis (~03/11/04) Diabetic peripheral neuropathy associated with type 2 diabetes mellitus Type 2 diabetes mellitus DDD (degenerative disc disease) Bilateral carotid artery disease GERD (gastroesophageal reflux disease) Essential hypertension Mixed hyperlipidemia Atherosclerotic heart disease of [place] coronary artery without angina pectoris Home Medications ?Medication ?Instructions ?Recorded ?Last Taken ?Type aspirin 81 mg chewable tablet 81 mg PO DAILY@0800 preventative 07/06/14 09/02/25 History atorvastatin 80 mg tablet 80 mg PO QHS cholesterol 09/02/19 09/02/25 History gabapentin 300 mg capsule 300 mg PO TID neuropathy 09/18/22 09/02/25 History mirabegron 50 mg tablet,extended 50 mg PO DAILY bladder 11/10/24 09/02/25 History release 24 hr paroxetine HCl 10 mg tablet 10 mg PO DAILY mood 11/10/24 09/02/25 History triamcinolone acetonide 55 mcg 2 spray intranasal DAILY PRN 11/10/24 09/02/25 History nasal spray aerosol (24 Hour Nasal congestion Allergy) atenolol 25 mg tablet 25 mg PO QODAY heart 03/21/25 09/02/25 History cholecalciferol (vitamin D3) 25 50 mcg PO QDAY vitamin 03/21/25 09/02/25 History mcg (1,000 unit) capsule donepezil 5 mg tablet 5 mg PO QDAY 03/21/25 08/31/25 History levetiracetam 500 mg tablet 500 mg PO BID tremors 03/21/25 09/02/25 History mecobalamin (vitamin B12) 1,000 1,000 mcg PO DAILY 08/31/25 09/02/25 History mcg chewable tablet nitroglycerin 0.4 mg sublingual 0.4 mg sublingual Q5-15M PRN chest 08/31/25 Unknown History tablet pain trospium 20 mg tablet 20 mg PO Q24H 09/03/25 09/02/25 History Allergy/AdvReac Type Severity Reaction Status Date / Time hydrocodone Allergy Rash Verified 09/03/25 14:21 Penicillins (PCN) Allergy Other Verified 09/03/25 14:21 Sulfa (Sulfonamide Allergy Unknown Verified 09/03/25 14:21 Antibiotics) amoxicillin (From Augmentin) AdvReac Mild itching Verified 09/03/25 14:21 clavulanic acid (From AdvReac Mild itching Verified 09/03/25 14:21 Augmentin) acetaminophen (From Vicodin) AdvReac Other Verified 09/03/25 14:21 hydrocodone bitartrate (From AdvReac Other Verified 09/03/25 14:21 Vicodin) lovastatin (From Mevacor) AdvReac Other Verified 09/03/25 14:21 rosuvastatin calcium (From AdvReac Other Verified 09/03/25 14:21 Crestor) simvastatin (From Zocor) AdvReac Other Verified 09/03/25 14:21 Family History Father Myocardial infarction Heart disease CVA (cerebral vascular accident) Diabetes Brother CAD (coronary artery disease) Mother , 70's - colostomy burst with infection No problems noted. Surgical History History of left breast biopsy Cataract extraction status of left eye History of surgery on wrist History of cystoscopy Presence of coronary angioplasty implant and graft (~12/18/03) Social History current occupational status: retired pets and animals: No Smoking Status: Light Smoker (<10/day) alcohol intake: never substance use type: does not use caffeine: Yes Type: carbonated beverages Number of servings: 3 and tea Number of servings: 3 do you feel safe at home: Yes Vital Signs Vital Signs Vital Signs: 09/03/25 14:08 09/03/25 14:08 09/03/25 14:08 Temperature 97.5 F L 97.5 F L Temperature Source Temporal Temporal Pulse Rate 70 70 Pulse Strength Respiratory Rate 14 14 Respiratory Effort Respiratory Depth Respiratory Pattern Blood Pressure 144/82 H 144/82 H Blood Pressure Mean 102 102 Blood Pressure Source Blood Pressure Position Blood Pressure Location Pulse Ox 95 95 Oxygen Delivery Method Room Air Room Air Room Air Oxygen Flow Rate (L/min) 09/03/25 14:08 09/03/25 14:38 09/03/25 15:08 Temperature 98.0 F Temperature Source Oral Pulse Rate 88 88 83 Pulse Strength Respiratory Rate 22 H 27 H 19 H Respiratory Effort Respiratory Depth Respiratory Pattern Blood Pressure 147/73 H 139/70 H 110/83 H Blood Pressure Mean 97 93 92 Blood Pressure Source Blood Pressure Position Blood Pressure Location Pulse Ox 95 95 95 Oxygen Delivery Method Room Air Room Air Room Air Oxygen Flow Rate (L/min) 09/03/25 15:30 09/03/25 17:18 09/03/25 17:19 Temperature 97.8 F 97.8 F Temperature Source Oral Pulse Rate 83 87 83 Pulse Strength Respiratory Rate 19 H 16 16 Respiratory Effort Respiratory Depth Respiratory Pattern Blood Pressure 153/82 H 156/81 H 156/81 H Blood Pressure Mean 105 106 106 Blood Pressure Source Blood Pressure Position Blood Pressure Location Pulse Ox 97 98 98 Oxygen Delivery Method Room Air Room Air Oxygen Flow Rate (L/min) 09/03/25 17:55 09/03/25 19:55 09/03/25 20:09 Temperature 98.3 F Temperature Source Oral Pulse Rate 76 Pulse Strength Respiratory Rate 16 Respiratory Effort Normal Non-Labored Respiratory Depth Normal Respiratory Pattern Normal Blood Pressure 147/80 H Blood Pressure Mean 102 Blood Pressure Source Monitor Blood Pressure Position Semi-Fowlers Blood Pressure Location Left Arm Pulse Ox 96 93 Oxygen Delivery Method Room Air Room Air Room Air Oxygen Flow Rate (L/min) 09/03/25 20:12 09/03/25 21:55 09/04/25 01:55 Temperature 98.2 F 98.4 F Temperature Source Oral Oral Pulse Rate 74 72 Pulse Strength Normal (2+) Respiratory Rate 18 16 Respiratory Effort Respiratory Depth Respiratory Pattern Blood Pressure 178/88 H 135/69 H Blood Pressure Mean 118 91 Blood Pressure Source Monitor Monitor Blood Pressure Position Semi-Fowlers Semi-Fowlers Blood Pressure Location Left Arm Left Arm Pulse Ox 96 94 Oxygen Delivery Method Nasal Cannula Nasal Cannula Oxygen Flow Rate (L/min) 1.5 2 09/04/25 02:00 09/04/25 05:55 09/04/25 08:02 Temperature 97.3 F L Temperature Source Temporal Pulse Rate 66 Pulse Strength Respiratory Rate 16 Respiratory Effort Normal Non-Labored Normal Non-Labored Respiratory Depth Normal Normal Respiratory Pattern Normal Normal Blood Pressure 150/84 H Blood Pressure Mean 106 Blood Pressure Source Monitor Blood Pressure Position Semi-Fowlers Blood Pressure Location Left Arm Pulse Ox 94 Oxygen Delivery Method Nasal Cannula Nasal Cannula Nasal Cannula Oxygen Flow Rate (L/min) 2 2 09/04/25 09:55 09/04/25 11:45 09/04/25 13:50 Temperature 97.8 F 98.4 F Temperature Source Temporal Oral Pulse Rate 65 58 L Pulse Strength Respiratory Rate 16 18 Respiratory Effort Respiratory Depth Respiratory Pattern Blood Pressure 147/69 H 117/66 Blood Pressure Mean 95 83 Blood Pressure Source Blood Pressure Position Blood Pressure Location Pulse Ox 91 97 91 Oxygen Delivery Method Nasal Cannula Room Air Oxygen Flow Rate (L/min) 2 Weight Weight: 71.2 kg Body Mass Index (BMI) 23.8 EEG Results Procedure Details EEG Procedure Details: MATTIE FOX is a 85 year old F with a past medical history of , who presents for evaluation of Electroencephalogram on DATE at TIME Lab / Micro Data 09/04/25 06:28 09/03/25 14:21 Labs: Laboratory Results - last 24 hr 09/03/25 14:21: WBC 12.9 H, RBC 5.35, Hgb 15.2 H, Hct 47.2 H, MCV 88.2, MCH 28.4, MCHC 32.2, RDW Std Deviation 43.9, RDW Coeff of Joslyn 13.6, Plt Count 200, MPV 10.7, Immature Gran % (Auto) 0.600, Neut % (Auto) 84.5 H, Lymph % (Auto) 9.1 L, [place] % (Auto) 5.1, Eos % (Auto) 0.5, Baso % (Auto) 0.2, Absolute Neuts (auto) 10.9 H, Absolute Lymphs (auto) 1.17, Nucleated RBC % 0, PT 13.4, INR 1.0, APTT 33.8, Sodium 139, Potassium 4.1, Chloride 103, Carbon Dioxide 24.5, Anion Gap 11, BUN 15, Creatinine 1.03, Estim Creat Clear Calc 38.13 L, Est GFR (MDRD) Non-Af 53 L, BUN/Creatinine Ratio 14.2, Glucose 154 H, Calcium 9.0, Troponin T High Sens 13 09/03/25 15:20: Urine Color Yellow, Urine Clarity Clear, Urine pH 6.0, Ur Specific [place] 1.015, Urine Protein 15 H, Urine Glucose (UA) Normal, Urine Ketones Negative, Urine Occult Blood 10 H, Urine Nitrite Negative, Urine Bilirubin Negative, Urine Urobilinogen Normal, Ur Leukocyte Esterase Negative, Urine RBC 0 SEEN, Urine WBC 0 SEEN, Ur Squamous Epith Cells 5-10 SEEN, Urine Bacteria 0 SEEN, Urine Mucus 0 SEEN 09/03/25 16:28: Troponin T Hi Sens 2 Hr 13 09/03/25 18:23: Troponin T Hi Sens 4Hr 14 09/04/25 06:28: WBC 9.7, RBC 5.05, Hgb 14.3, Hct 44.0, MCV 87.1, MCH 28.3, MCHC 32.5, RDW Std Deviation 42.8, RDW Coeff of Joslyn 13.6, Plt Count 192, MPV 11.0, Immature Gran % (Auto) 0.500, Neut % (Auto) 68.4, Lymph % (Auto) 22.8, [place] % (Auto) 7.2, Eos % (Auto) 0.8, Baso % (Auto) 0.3, Absolute Neuts (auto) 6.6, Absolute Lymphs (auto) 2.21, Nucleated RBC % 0, Triglycerides 114, Cholesterol 122, LDL Cholesterol, Calc 59, VLDL Cholesterol 23, HDL Cholesterol 42, Cholesterol/HDL Ratio 2.89 Micro: Microbiology 09/03/25 Unknown Mucosa - Nasopharyngeal Respiratory Panel (PCR) - Final 09/03/25 15:20 Urine, Random Legionella Antigen - Final 09/03/25 15:20 Urine, Random Streptococcus pneumoniae Antigen (M - Final Rhythm Strip Rhythm Strip: Sinus Rhythm Rate: 85 Ectopy: None Imaging Radiology Impression Brain CT 09/03/25 14:08 IMPRESSION: 1. No acute intracranial abnormality. 2. Age-related senescent changes. Reading Location: [facility] Head/Neck CTA 09/03/25 14:09 IMPRESSION: 1. No arterial occlusion, dissection or aneurysm in the head or neck. 2. Moderate stable bilateral proximal ICA stenosis due to calcified plaque (Right 50%, Left 60%). 3. New significant distal left vertebral artery stenosis (55-60%) in a hypoplastic vessel with preserved flow distally. 4. Stable 1.4 cm left lateral frontal region dural-based mass, likely a meningioma. Reading Location: [facility] Chest X-Ray 09/03/25 16:16 IMPRESSION: Focal airspace opacity noted in the right lung base. Recommend correlation with pneumonia. Reading Location: [facility] Chest X-Ray 09/04/25 10:40 IMPRESSION: Bilateral lower lobe airspace disease processes most likely representing pneumonic infiltrates. Reading Location: [facility] Active Medications Active Medications Active Medications: Current Medications Generic Name Dose Route Start Last Admin Trade Name Freq PRN Reason Stop Dose Admin Acetaminophen 650 mg 09/03/25 17:49 Acetaminophen 325 Mg Tablet PO Q4H PRN PRN Pain 1-10 Or Fever>99.6 Aspirin 81 mg 09/04/25 08:00 09/04/25 10:12 Aspirin 81 Mg Tab.Chew PO 81 mg BREAKFAST VERN Administration Atenolol 25 mg 09/04/25 10:00 09/04/25 10:12 Atenolol 25 Mg Tablet PO 25 mg QODAY VERN Administration Protocol Atorvastatin Calcium 80 mg 09/03/25 22:00 09/03/25 22:00 Atorvastatin Calcium 80 Mg Tablet PO 80 mg QHS VERN Administration Cyanocobalamin (Vitamin B12) 1,000 mcg 09/04/25 08:00 09/04/25 10:12 Cyanocobalamin 500 Mcg Tablet PO 1,000 mcg DAILYCM VERN Administration Gabapentin 300 mg 09/03/25 22:00 09/04/25 13:57 Gabapentin 300 Mg Capsule PO 300 mg TID VERN Administration Heparin Sodium (Porcine) 5,000 unit 09/03/25 22:00 09/04/25 10:13 Heparin Injection (Vial) 5,000 Unit/Ml Vial SC 5,000 unit Q12 VERN Administration Hydralazine HCl 5 mg 09/03/25 17:49 Hydralazine 20 Mg/Ml Vial IV 09/04/25 17:49 Q30M PRN maintain BP parameters with HR <60 Ceftriaxone Sodium 1 gm in 50 mls @ 100 mls/hr 09/03/25 17:15 09/04/25 11:03 Rocephin IV Infused Q24 VERN Infusion Azithromycin 500 mg/ Sodium 250 mls @ 250 mls/hr 09/03/25 17:30 09/04/25 13:35 Chloride IV Infused Q24 VERN Infusion Sodium Chloride 250 mls @ 15 mls/hr 09/03/25 18:08 IV .[id number] PRN Saline Flush Sodium Chloride 250 mls @ 15 mls/hr 09/03/25 18:08 IV .[id number] PRN Additional IVPB Infusion Labetalol HCl 10 - 20 mg 09/03/25 17:49 Labetalol 20 Mg/4 Ml Vial IV 09/04/25 17:49 Q10M PRN PRN maintain BP parameters with HR >/=60 Levetiracetam 500 mg 09/03/25 22:00 09/04/25 10:12 Levetiracetam 500 Mg Tablet PO 500 mg BID VERN Administration Nitroglycerin 0.4 mg 09/03/25 17:49 Nitroglycerin (Inpatient Use) 0.4 Mg Tab.Subl SL Q5M PRN chest pain Ondansetron HCl 4 mg 09/03/25 17:49 Ondansetron 4 Mg/2 Ml Vial IV Q8H PRN PRN NAUSEA/VOMITING Paroxetine HCl 10 mg 09/04/25 10:00 09/04/25 10:13 Paroxetine 10 Mg Tablet PO 10 mg DAILY VERN Administration Sodium Chloride 10 - 40 ml 09/03/25 18:08 0.9% Saline Lock 10 Ml Syringe IV UD PRN SALINE FLUSH Temazepam 15 mg 09/03/25 17:49 Temazepam 15 Mg Capsule PO QHS PRN PRN INSOMNIA Tolterodine Tartrate 2 mg 09/04/25 10:00 09/04/25 10:40 Tolterodine Tartrate 2 Mg Cap.Sa PO Not Given DAILY VERN NIHSS NIHSS Nursing Documentation NIHSS Nursing Documentation: NIHSS: Ischemic Stroke/TIA Start: 09/03/25 17:49 Text: For PCU Patients: NIH and Neuro Check every 4 Status: Active hours, PRN and with change in RN caregiver. Freq: [id number] Protocol: Activity Type Activity Date Activity User E-sign Co-sign Detail Recorded Client Recorded Date Recorded By Document 09/04/25 13:50 [id number] 09/04/25 13:54 09/04/25 13:50 NIH Stroke Scale [NIHSS] A score of 0 is normal or asymptomatic . Total possible score is 42. Inpatient: RN or Physician to activate a stroke alert for onset of new stroke symptoms or with NIHSS increase >/= 3 points. Following change in neurological status, NIHSS will be performed per physician order or more frequently PRN. -1a. Level of Consciousness 0 - Alert; keenly responsive -1b. LOC Questions 2 - Answers NEITHER question correctly -1c. LOC Commands 0 - Performs BOTH tasks correctly -2. Best Gaze 0 - Normal -3. Visual 0 - No visual loss -4. Facial Palsy 0 - Normal symmetrical movements -5a. Left Arm 0 - No drift; arm holds 90 ( or 45) degrees for full 10 seconds -5b. Right Arm 0 - No drift; arm holds 90 ( or 45) degrees for full 10 seconds -6a. Left Leg 0 - No drift; leg holds 30- degree position for full 5 seconds -6b. Right Leg 0 - No drift; leg holds 30- degree position for full 5 seconds -7. Limb Ataxia 0 - Absent -8. Sensory 0 - Normal; no sensory loss -9. Best Language 0 - No aphasia; normal -10. Dysarthria 0 - Normal -11. Extinction and Inattention 0 - No abnormality -Total 2 Query Text:A score of 0 is normal or asymptomatic. Total possible score is 42 . ED: Notify Physician for NIHSS increase by > / = 3 points. Inpatient: RN or Physician to activate a stroke alert for NIHSS increase of > / = 3 points. Coma Scale [Assess] -Eye Opening Spontaneous -Motor Obeys Commands -Verbal Confused [Total] -Coma Scale Total 14 NIHSS 1a. Level of Consciousness: 0 - Alert; keenly responsive 1b. LOC Questions: 1 - Answers ONE question correctly 1c. LOC Commands: 0 - Performs BOTH tasks correctly 2. Best Gaze: 0 - Normal 3. Visual: 0 - No visual loss 4. Facial Palsy: 0 - Normal symmetrical movements 5a. Left Arm: 0 - No drift; arm holds 90 (or 45) degrees for full 10 seconds 5b. Right Arm: 0 - No drift; arm holds 90 (or 45) degrees for full 10 seconds 6a. Left Le - No drift; leg holds 30-degree position for full 5 seconds 6b. Right Le - No drift; leg holds 30-degree position for full 5 seconds 7. Limb Ataxia: 0 - Absent 8. Sensory: 0 - Normal; no sensory loss 9. Best Language: 1 - [id number] aphasia; 10. Dysarthria: 1 = [id number] dysarthria; 11. Extinction and Inattention: 0 - No abnormality Total: 3
--- NOTE | 2025-09-04 14:47 | CHAPLAIN ---
Type of Pastoral Visit _x__ Initial Visit ___ Follow-up Visit ___ On-call Visit ___ General Patient Visit ___ Spiritual Assessment ___ Family Conference ___ Bereavement ___ Rapid Response ___ Code Blue ___ Other (describe below) Pastoral Care Referral From ___ Patient _x__ Family ___ Nurse ___ Physician ___ Texture Artist ___ Division Sales Manager ___ Other (describe below) Sacrament/Intervention _x__ Active listening ___ Anointing ___ Latter-Day ___ Bereavement ___ Communion ___ Danni exploration ___ ___ Life review _x__ Prayer ___ Reconciliation ___ Sacrament of Sick _x__ Supportive presence ___ Wedding ___ Other (describe below) Pastoral Comments patient was napping in her chair and spouse said this is how it has been; pt did wake up to her name and it was noted that she is hard of hearing; pt is pleasant and states that she is fine; pt refers to her at times for answers but is agreeable and confident that she is fine; spouse gives facial gestures to indicate that pt is not as well as she states; both acknowledge a long marriage of 64 years; pt tries to use humor to answer questions or make comments; pt is not able to give full answers to questions about her health; both say that a prayer would be helpful and that is done
--- NOTE | 2025-09-04 15:46 | CASEMGMT ---
BENITEZ Met with patient to complete BENITEZ form. BENITEZ form and its content were verbally explained and patient's questions were answered to the best of my ability.? Patient voiced understanding and signed BENITEZ form.? Patient provided a copy of signed BENITEZ form and original placed in patient's chart.? Patient had no further questions. Beatrice Quinn, Discharge Planning Asst
--- NOTE | 2025-09-04 19:03 | PCM.PN.HOSP ---
Reason for Visit Chief Complaint: Right leg weakness, increased confusion Subjective Subjective Patient was seen and examined today, I talked at length with her who was in the room at the time of my examination. Patient's chest x-ray this morning showed infiltrates in the lower lungs bilaterally, I have made the decision to make her full admission and continue antibiotic treatment for pneumonia. Teleneurology saw the patient and had a concern that the patient may have had a seizure at home and ordered an EEG. Patient's MRI did not show evidence of an acute stroke today. Patient is on room air at rest but requires oxygen when ambulating. Objective Data Objective Data Vital Signs: Vital Signs Temp Pulse Resp BP Pulse Ox O2 Del Method O2 Flow Rate 97.6 F L 64 20 H 102/57 L 92 Room Air 2 09/04/25 17:57 09/04/25 17:57 09/04/25 17:57 09/04/25 17:57 09/04/25 17:57 09/04/25 17:57 09/04/25 09:55 Oxygen Flow Rate (L/min) 2 Oxygen Delivery Method Room Air Weight: 71.2 kg Body Mass Index (BMI) 23.8 Intake & Output: Intake and Output for Last 24 Hours 09/02/25 09/03/25 09/04/25 23:59 23:59 23:59 Intake Total 300 / 300 700 / 700 Output Total 550 / 550 Balance 300 / -100 150 / 150 Lab / Micro Data 09/04/25 06:28 09/03/25 14:21 Labs: Laboratory Results - last 24 hr 09/04/25 06:28: WBC 9.7, RBC 5.05, Hgb 14.3, Hct 44.0, MCV 87.1, MCH 28.3, MCHC 32.5, RDW Std Deviation 42.8, RDW Coeff of Joslyn 13.6, Plt Count 192, MPV 11.0, Immature Gran % (Auto) 0.500, Neut % (Auto) 68.4, Lymph % (Auto) 22.8, [place] % (Auto) 7.2, Eos % (Auto) 0.8, Baso % (Auto) 0.3, Absolute Neuts (auto) 6.6, Absolute Lymphs (auto) 2.21, Nucleated RBC % 0, Triglycerides 114, Cholesterol 122, LDL Cholesterol, Calc 59, VLDL Cholesterol 23, HDL Cholesterol 42, Cholesterol/HDL Ratio 2.89 Micro: Microbiology 09/03/25 Unknown Mucosa - Nasopharyngeal Respiratory Panel (PCR) - Final 09/03/25 15:20 Urine, Random Legionella Antigen - Final 09/03/25 15:20 Urine, Random Streptococcus pneumoniae Antigen (M - Final Radiography Diagnostic Testing: Radiology Impression Brain MRI 09/04/25 05:55 IMPRESSION: 1. No acute intracranial abnormality; no acute infarct. 2. Moderate parenchymal volume loss and chronic microangiopathic changes. 3. Stable 17 mm meningioma at the lateral left frontal convexity. Reading Location: [facility] Echocardiogram 09/04/25 05:55 Interpretation Summary Normal left ventricular systolic function with EF: 65% by Bailey's biplane. Normal left ventricular wall motion Normal right ventricular systolic function. Moderate aortic stenosis Compared to echocardiograms in 04/22/2022 and 11/11/2024, there is no significant change. Please order routine surveillance echocardiogram in 1 year for monitoring of aortic stenosis. Ordering Physician: John Buck Referring Physician: Matheus Fajardo M.D. Performed By: Zachariah Connelly RDCS Chest X-Ray 09/04/25 10:40 IMPRESSION: Bilateral lower lobe airspace disease processes most likely representing pneumonic infiltrates. Reading Location: [facility] Rhythm Strip Rhythm Strip: Sinus Rhythm Rate: 85 Ectopy: None Physical Exam Narrative alert and no apparent distress Constitutional Narrative: Patient appears her stated age General Appearance: cooperative, well kempt and well developed Orientation / Consciousness: awake, oriented to person, oriented to place and confused HEENT normocephalic, head/scalp atraumatic and moist oral mucous membranes Eyes PERRL, EOMs intact bilaterally and conjunctivae normal Neck supple, no JVD, thyroid normal and no carotid bruits General: trachea midline Resp normal respiratory effort, no retractions, no use of accessory muscles and clear to auscultation bilaterally Auscultation: Negative for rales, rhonchi or wheezes Cardio regular rate, regular rhythm, S1 normal heart sound, S2 normal heart sound, no rub and no gallops Cardio Narrative: 2/6 systolic murmur is noted to the right sternal border left sternal border and apex. GI normal to inspection, nondistended, normoactive bowel sounds, soft to palpation, non-tender and non-distended Extremity no clubbing, cyanosis or edema Skin no rashes or lesions noted General Skin Exam: no breakdown Neuro CN's II-XII intact bilaterally, moves all extremities, no focal motor deficits and no sensory deficits noted Sensorium / Orientation: awake, alert, oriented to person and oriented to place Speech: speech normal Psych Psych Narrative: Patient is confused, she is not agitated or depressed Assessment & Plan Assessment/Plan (1) Pneumonia: (2) Brain TIA: PLAN: Plan 1. TIA-patient will remain on her present medication, teleneurology is participating in her care #2 Bilateral pneumonia-patient will continue on Zithromax and Rocephin, respiratory panel and Legionella and strep antigens were all negative. #3 Alzheimer's dementia-complicates care, management, recovery, and prognosis #4 atherosclerotic heart disease-patient is on a statin and aspirin #5 history of type 2 diabetes-patient is not on any medication for diabetes at this time, blood sugar in the emergency room was slightly elevated, I do not feel the patient needs her blood sugars monitored during her hospitalization. According to the hospital, patient is a full code Total clinical time spent by myself addressing patient's medical issues, reviewing all of her data, and collaborating with patient's care team: 35 minutes Charges/Coding Visit Charges Inpatient E&M: 48134 Subs Hosp L2 NIHSS NIHSS Nursing Documentation NIHSS Nursing Documentation: NIHSS: Ischemic Stroke/TIA Start: 09/03/25 17:49 Text: For PCU Patients: NIH and Neuro Check every 4 Status: Complete hours, PRN and with change in RN caregiver. Freq: [id number] Protocol: Activity Type Activity Date Activity User E-sign Co-sign Detail Recorded Client Recorded Date Recorded By Document 09/04/25 13:50 [id number] 09/04/25 13:54 09/04/25 13:50 NIH Stroke Scale [NIHSS] A score of 0 is normal or asymptomatic . Total possible score is 42. Inpatient: RN or Physician to activate a stroke alert for onset of new stroke symptoms or with NIHSS increase >/= 3 points. Following change in neurological status, NIHSS will be performed per physician order or more frequently PRN. -1a. Level of Consciousness 0 - Alert; keenly responsive -1b. LOC Questions 2 - Answers NEITHER question correctly -1c. LOC Commands 0 - Performs BOTH tasks correctly -2. Best Gaze 0 - Normal -3. Visual 0 - No visual loss -4. Facial Palsy 0 - Normal symmetrical movements -5a. Left Arm 0 - No drift; arm holds 90 ( or 45) degrees for full 10 seconds -5b. Right Arm 0 - No drift; arm holds 90 ( or 45) degrees for full 10 seconds -6a. Left Leg 0 - No drift; leg holds 30- degree position for full 5 seconds -6b. Right Leg 0 - No drift; leg holds 30- degree position for full 5 seconds -7. Limb Ataxia 0 - Absent -8. Sensory 0 - Normal; no sensory loss -9. Best Language 0 - No aphasia; normal -10. Dysarthria 0 - Normal -11. Extinction and Inattention 0 - No abnormality -Total 2 Query Text:A score of 0 is normal or asymptomatic. Total possible score is 42 . ED: Notify Physician for NIHSS increase by > / = 3 points. Inpatient: RN or Physician to activate a stroke alert for NIHSS increase of > / = 3 points. Coma Scale [Assess] -Eye Opening Spontaneous -Motor Obeys Commands -Verbal Confused [Total] -Coma Scale Total 14
[2025-09-05] VITALS (9 sets, daily range): BP systolic 104–138; BP diastolic 50–67; PULSE 62–69; RESP 16–18; TEMP 35.7–36.8; O2SAT 88–97; BMI 23.8
[2025-09-05] MEDS: Heparin Injection (Vial) 5,000 UNIT/ML VIAL 5000 UNIT SC ×2 (08:57→20:45)
[2025-09-05] MEDS: Azithromycin 500 MG in 0.9% Normal Saline (250mL Bag) 250 ML 250 MG IV (11:08)
--- NOTE | 2025-09-05 11:34 | CASEMGMT ---
Social Work PHQ9 was not completed due to the patient having dementia. SAVANNAH Du
--- NOTE | 2025-09-05 12:47 | CASEMGMT ---
Social Work Face to Face with patient and her for initial transition planning/care coordination assessment. SW introduced self. The answered the questions. Patient has dementia. Admitting Dx: TIA Primary Care Doctor: Dr. Fajardo Speciality doctors: neuro- Dr. Dutton Insurance: [facility] Medicare Pharmacy: Patient utilizes Advanced directives: yes LNOK:. Living Situation: Patient lives at home with her . There are 2 steps into the home. The assist with IADL's. ADL's/Prior level of functioning: Patient is independent with ADL's. The assist with IADL's. Transportation: The drives. DME: [place] USP/home health history: OP therapy history, no HH history Mental Health: none Substance abuse history: none Assessment: Patient lives at home with her . There are 2 steps into the home. The assist with IADL's. The does not want HH at [place]. PLAN: [place] home no needs. The does not want HH at [place]. SAVANNAH Du
--- NOTE | 2025-09-05 19:46 | PCM.PN.HOSP ---
Reason for Visit Chief Complaint: Right leg weakness, increased confusion Subjective Subjective Patient was seen and examined today, she remains pleasantly confused. She does not appear to be in any distress, she is requiring low-flow nasal cannula oxygen. Objective Data Objective Data Vital Signs: Vital Signs Temp Pulse Resp BP Pulse Ox O2 Del Method O2 Flow Rate 98.2 F 64 18 104/50 L 94 Nasal Cannula 2 09/05/25 14:29 09/05/25 15:59 09/05/25 14:29 09/05/25 14:29 09/05/25 14:29 09/05/25 14:29 09/05/25 14:20 Oxygen Flow Rate (L/min) 2 Oxygen Delivery Method Nasal Cannula Weight: 71.2 kg Body Mass Index (BMI) 23.8 Intake & Output: Intake and Output for Last 24 Hours 09/03/25 09/04/25 09/05/25 23:59 23:59 23:59 Intake Total 300 / 300 820 / 820 360 / 360 Output Total 550 / 550 Balance 300 / -100 270 / 270 360 / 360 Lab / Micro Data 09/04/25 06:28 09/03/25 14:21 Micro: Microbiology 09/03/25 Unknown Mucosa - Nasopharyngeal Respiratory Panel (PCR) - Final 09/03/25 15:20 Urine, Random Legionella Antigen - Final 09/03/25 15:20 Urine, Random Streptococcus pneumoniae Antigen (M - Final Rhythm Strip Rhythm Strip: Sinus Rhythm Rate: 85 Ectopy: None Physical Exam Narrative alert and no apparent distress Constitutional Narrative: Patient appears her stated age General Appearance: cooperative, well kempt and well developed Orientation / Consciousness: awake, oriented to person, oriented to place and confused HEENT normocephalic, head/scalp atraumatic and moist oral mucous membranes Eyes PERRL, EOMs intact bilaterally and conjunctivae normal Neck supple, no JVD, thyroid normal and no carotid bruits General: trachea midline Resp normal respiratory effort, no retractions, no use of accessory muscles and clear to auscultation bilaterally Auscultation: Negative for rales, rhonchi or wheezes Cardio regular rate, regular rhythm, S1 normal heart sound, S2 normal heart sound, no rub and no gallops Cardio Narrative: 2/6 systolic murmur is noted to the right sternal border left sternal border and apex. GI normal to inspection, nondistended, normoactive bowel sounds, soft to palpation, non-tender and non-distended Extremity no clubbing, cyanosis or edema Skin no rashes or lesions noted General Skin Exam: no breakdown Neuro CN's II-XII intact bilaterally, moves all extremities, no focal motor deficits and no sensory deficits noted Sensorium / Orientation: awake, alert, oriented to person and oriented to place Speech: speech normal Psych Psych Narrative: Patient is confused, she is not agitated or depressed Assessment & Plan Assessment/Plan (1) Pneumonia: (2) Brain TIA: PLAN: Plan 1. TIA-patient will remain on her present medication, teleneurology is participating in her care, EEG was ordered due to her history of seizures #2 Bilateral pneumonia-patient will continue on Zithromax and Rocephin, respiratory panel and Legionella and strep antigens were all negative. #3 Alzheimer's dementia-complicates care, management, recovery, and prognosis #4 atherosclerotic heart disease-patient is on a statin and aspirin #5 history of type 2 diabetes-patient is not on any medication for diabetes at this time, blood sugar in the emergency room was slightly elevated, I do not feel the patient needs her blood sugars monitored during her hospitalization. #6 hypoxia-most likely secondary to bilateral pneumonia, continue to monitor pulse ox According to the patient's , patient is a full code Total clinical time spent by myself addressing patient's medical issues, reviewing all of her data, and collaborating with patient's care team: 35 minutes Charges/Coding Visit Charges Inpatient E&M: 53070 Subs Hosp L2 NIHSS NIHSS Nursing Documentation NIHSS Nursing Documentation: NIHSS: Ischemic Stroke/TIA Start: 09/03/25 17:49 Text: For PCU Patients: NIH and Neuro Check every 4 Status: Complete hours, PRN and with change in RN caregiver. Freq: [id number] Protocol: Activity Type Activity Date Activity User E-sign Co-sign Detail Recorded Client Recorded Date Recorded By Document 09/04/25 13:50 [id number] 09/04/25 13:54 09/04/25 13:50 NIH Stroke Scale [NIHSS] A score of 0 is normal or asymptomatic . Total possible score is 42. Inpatient: RN or Physician to activate a stroke alert for onset of new stroke symptoms or with NIHSS increase >/= 3 points. Following change in neurological status, NIHSS will be performed per physician order or more frequently PRN. -1a. Level of Consciousness 0 - Alert; keenly responsive -1b. LOC Questions 2 - Answers NEITHER question correctly -1c. LOC Commands 0 - Performs BOTH tasks correctly -2. Best Gaze 0 - Normal -3. Visual 0 - No visual loss -4. Facial Palsy 0 - Normal symmetrical movements -5a. Left Arm 0 - No drift; arm holds 90 ( or 45) degrees for full 10 seconds -5b. Right Arm 0 - No drift; arm holds 90 ( or 45) degrees for full 10 seconds -6a. Left Leg 0 - No drift; leg holds 30- degree position for full 5 seconds -6b. Right Leg 0 - No drift; leg holds 30- degree position for full 5 seconds -7. Limb Ataxia 0 - Absent -8. Sensory 0 - Normal; no sensory loss -9. Best Language 0 - No aphasia; normal -10. Dysarthria 0 - Normal -11. Extinction and Inattention 0 - No abnormality -Total 2 Query Text:A score of 0 is normal or asymptomatic. Total possible score is 42 . ED: Notify Physician for NIHSS increase by > / = 3 points. Inpatient: RN or Physician to activate a stroke alert for NIHSS increase of > / = 3 points. Coma Scale [Assess] -Eye Opening Spontaneous -Motor Obeys Commands -Verbal Confused [Total] -Coma Scale Total 14
[2025-09-05] MEDS: Memantine Hydrochloride 5 MG Tablet PO (20:47)
[2025-09-06 03:05] VITALS: BMI 23.8
[2025-09-06 05:31] VITALS: BP 135/62; PULSE 62; RESP 18; TEMP 36.1; O2SAT 100
[2025-09-06 05:35] VITALS: O2SAT 95
[2025-09-06 08:32] VITALS: BP 127/65; PULSE 65; RESP 18; TEMP 36.2; O2SAT 93
[2025-09-06] MEDS: Memantine Hydrochloride 5 MG Tablet PO (08:34)
[2025-09-06] MEDS: Heparin Injection (Vial) 5,000 UNIT/ML VIAL 5000 UNIT SC (08:35)
[2025-09-06] MEDS: Azithromycin 500 MG in 0.9% Normal Saline (250mL Bag) 250 ML 250 MG IV (08:35)
--- NOTE | 2025-09-06 09:03 | CASEMGMT ---
Social Work Patient is currently on oxygen. If the patient needs oxygen at [place], the stated he is okay with using [employer] if they take his insurance. SAVANNAH Du
[2025-09-06 10:16] VITALS: O2SAT 86; O2SAT 94; O2SAT 96
--- NOTE | 2025-09-06 12:10 | CASEMGMT ---
Social Work SW confirmed with the that no HH ordered at [place]. The reported he does not think she needs it. Therapy is not recommending additional therapy. SAVANNAH Du
--- NOTE | 2025-09-06 13:36 | PCM.DC ---
Discharge Instructions DC O2, CPAP, BIPAP needs Home O2 Discharge instructions: Yes Type of respiratory needs?: Oxygen Oxygen frequency: With Ambulation Oxygen liters per minute during Ambulation: 2 L Dressing / Incision Discharge Activity: Return to Normal Activity Weight Bearing Status: Full weight bearing Follow Up Care Test Results: Test results from this visit will be discussed in further detail at your follow-up appointment, if applicable. Discharge Plan Admission Admit Date/Time: 09/04/25 16:04 Primary Reason for Your Visit: pneumonia, hypoxia Attending Provider: John Buck Primary Care Provider: Matheus Fajardo Consulting Providers: Tanika Morgan; Tiff Cueva; Roger Walden; Yulissa Thomas; Ivonne Huddleston; Taryn Zavala; Seamus Plascencia; Rohini Escamilla; GLADYS DELGADILLO; Greg Santos; Kerrie Waters Instructions Additional Instructions / Restrictions: Do not smoke while using oxygen, use oxygen at 2 L when ambulating Discharge Orders/Prescriptions Prescriptions: New memantine 5 mg Tablet 5 mg PO BID Qty: 84 0RF Rx Instructions: 1 twice a day for 2 weeks, then increase to 2 tablets twice a day thereafter cefdinir 300 mg capsule 300 mg PO BID Qty: 10 0RF Rx Instructions: Start on 09/07/2025 Continued atorvastatin 80 mg tablet 80 mg PO QHS gabapentin 300 mg capsule 300 mg PO TID levetiracetam 500 mg tablet 500 mg PO BID nitroglycerin 0.4 mg tablet, sublingual 0.4 mg sublingual Q5-15M PRN (Reason: chest pain) Rx Instructions: do not exceed 3 doses per episode mecobalamin (vitamin B12) 1,000 mcg tablet,chewable 1,000 mcg PO DAILY aspirin 81 MG tablet,chewable 81 mg PO DAILY@0800 atenolol 25 mg tablet 25 mg PO QODAY trospium 20 mg tablet 20 mg PO Q24H Patient Comments: STARTED AFTER STOPPING DONEPEZIL UNDER PCP INSTRUCTION. had x2 doses per pts mirabegron 50 mg tablet extended release 24 hr 50 mg PO DAILY triamcinolone acetonide [24 Hour Nasal Allergy] 55 mcg aerosol,spray 2 spray intranasal DAILY PRN (Reason: congestion) Rx Instructions: administer into each nostril paroxetine HCl 10 mg tablet 10 mg PO DAILY cholecalciferol (vitamin D3) 25 mcg (1,000 unit) capsule 50 mcg PO QDAY Discontinued donepezil 5 mg tablet 5 mg PO QDAY Referrals / Follow Up: Matheus Fajardo MD [Primary Care Provider, Internal Medicine] - In 1 Week Disposition Disposition (needs filled in before D/C Order can be placed): Home, Self Care
[2025-09-06 14:00] VITALS: RESP 15
--- NOTE | 2025-09-06 14:04 | PCM.DC.SUM ---
Providers Date of Admission: 09/04/25 Date of Discharge: 09/06/25 Primary Care Physician: Dr. Matheus Fajardo MD Consultations 09/03/25 17:49 Consult: Tele-Neurology Routine Consulting Provider: [facility] Reason for Consult: Acute Ischemic Stroke/TIA EMERGENT Consult: No MD Notified: Yes Date Notified: 09/03/25 Time Notified: 23:43 Method of Notification: Answering Service Nursing Unit Staff Notify [facility] of Tele-Neurology Consult: Yes Reason For Visit: TIA Diagnosis Discharge Diagnosis (1) Pneumonia: Status: Inactive Code(s): J18.9 - Pneumonia, unspecified organism (2) Brain TIA: Status: Inactive Code(s): G45.9 - Transient cerebral ischemic attack, unspecified Plan 1. Encephalopathy-toxic metabolic in nature secondary to pneumonia #2 Bilateral pneumonia-patient will continue on Zithromax and Rocephin, respiratory panel and Legionella and strep antigens were all negative. #3 Alzheimer's dementia-complicates care, management, recovery, and prognosis #4 atherosclerotic heart disease-patient is on a statin and aspirin #5 history of type 2 diabetes-patient is not on any medication for diabetes at this time, blood sugar in the emergency room was slightly elevated, I do not feel the patient needs her blood sugars monitored during her hospitalization. #6 hypoxia-most likely secondary to bilateral pneumonia, continue to monitor pulse ox According to the patient's , patient is a full code Total clinical time spent by myself addressing patient's medical issues, reviewing all of her data, and collaborating with patient's care team: 35 minutes Medications at Discharge Home Medications aspirin 81 mg chewable tablet 81 mg PO DAILY@0800 preventative 07/06/14 atorvastatin 80 mg tablet 80 mg PO QHS cholesterol 09/02/19 gabapentin 300 mg capsule 300 mg PO TID neuropathy 09/18/22 mirabegron 50 mg tablet,extended release 24 hr 50 mg PO DAILY bladder 11/10/24 paroxetine HCl 10 mg tablet 10 mg PO DAILY mood 11/10/24 triamcinolone acetonide 55 mcg nasal spray aerosol (24 Hour Nasal Allergy) 2 spray intranasal DAILY PRN congestion 11/10/24 atenolol 25 mg tablet 25 mg PO QODAY heart 03/21/25 cholecalciferol (vitamin D3) 25 mcg (1,000 unit) capsule 50 mcg PO QDAY vitamin 03/21/25 levetiracetam 500 mg tablet 500 mg PO BID tremors 03/21/25 mecobalamin (vitamin B12) 1,000 mcg chewable tablet 1,000 mcg PO DAILY vitamin 08/31/25 nitroglycerin 0.4 mg sublingual tablet 0.4 mg sublingual Q5-15M PRN chest pain 08/31/25 trospium 20 mg tablet 20 mg PO Q24H bladder 09/03/25 cefdinir 300 mg capsule 300 mg PO BID #10 caps 09/06/25 memantine 5 mg tablet 5 mg PO BID #84 tabs 09/06/25 Hospital Course Operations None Procedures Electroencephalogram Summary of Care Provided Minutes Spent on Discharge: 31 Hospital Course: This 85-year-old white female was seen in the emergency room at [facility] after being brought in by her with complaints of increased right leg weakness and increased confusion over of her baseline. Stroke team was activated in the emergency room, patient underwent a CT of the head and neck as well as a CT of the brain did not show any acute process or acute occlusive disease. Patient's NIH score is 1, workup showed a white blood cell count of 12.9 and a hemoglobin of 15.2 but was otherwise unremarkable. Glucose was 154, patient's UA was unremarkable, according to the emergency room physician chest x-ray showed right lower lobe infiltrate worrisome for pneumonia. Patient was placed on IV Zithromax and Rocephin and admitted to PCU. Patient underwent an echocardiogram which was unremarkable, teleneurology saw the patient and was concerned that she may have had a seizure at home due to the fact she had a seizure disorder, patient's MRI did not show any evidence of acute stroke. Patient had an EEG done which showed no abnormality. Teleneurology felt that the patient may have had toxic encephalopathy from her pneumonia along with hypoxia. In talking with the , I had concerns that the patient had undiagnosed dementia. On 09/06/2025, patient was seen and examined: On examination she appeared in good health and spirits. Vital signs as documented. Skin warm and dry and without overt rashes. Neck without JVD, neck was supple, trachea midline, thyroid was normal. Lungs clear bilaterally, normal air movement was noted. Heart exam notable for regular rhythm, normal sounds and absence of murmurs, rubs or gallops. Abdomen unremarkable and without evidence of organomegaly, masses, or abdominal aortic enlargement. Bowel sounds are present, abdomen is not distended. Extremities nonedematous, no cyanosis was noted, no clubbing was noted. Neuro: Cranial nerves II through XII are grossly intact, no focal motor deficits were noted, sensation to light touch and pinprick intact, motor exam 5/5 throughout. Psych: Patient is alert, she exhibits some confusion but is not agitated or depressed. Patient was discharged home in stable condition on 09/06/2025 Weight / BMI Weight Weight: 71.2 kg Body Mass Index (BMI) 23.8 ABG / Lab / Microbiology Data 09/04/25 06:28 09/03/25 14:21 Microbiology: Microbiology 09/03/25 Unknown Mucosa - Nasopharyngeal Respiratory Panel (PCR) - Final 09/03/25 15:20 Urine, Random Legionella Antigen - Final 09/03/25 15:20 Urine, Random Streptococcus pneumoniae Antigen (M - Final D/C Instructions Weight Bearing Status: Full weight bearing DC O2, CPAP, BIPAP Needs Home O2 Discharge instructions: Yes Type of respiratory needs?: Oxygen Oxygen frequency: With Ambulation Oxygen liters per minute during Ambulation: 2 L DC home with Oxygen: Yes Home O2 MD Review: I have reviewed the oxygen testing, and the patient qualifies for home oxygen equipment and portability. The patient is mobile in the home and the community. Meaningful Use Info Meaningful Use Meaningful Use Diagnoses (Choose all that apply): None applicable Discharge Plan Admission Admit Date/Time: 09/04/25 16:04 Primary Reason for Your Visit: pneumonia, hypoxia Attending Provider: John Buck Primary Care Provider: Matheus Fajardo Consulting Providers: Tanika Morgan; Tiff Cueva; Roger Walden; Yulissa Thomas; Ivonne Huddleston; Taryn Zavala; Seamus Plascencia; Rohini Escamilla; GLADYS DELGADILLO; Greg Santos; Kerrie Waters Instructions Additional Instructions / Restrictions: Do not smoke while using oxygen, use oxygen at 2 L when ambulating Discharge Orders/Prescriptions Prescriptions: New memantine 5 mg Tablet 5 mg PO BID Qty: 84 0RF Rx Instructions: 1 twice a day for 2 weeks, then increase to 2 tablets twice a day thereafter cefdinir 300 mg capsule 300 mg PO BID Qty: 10 0RF Rx Instructions: Start on 09/07/2025 Continued atorvastatin 80 mg tablet 80 mg PO QHS gabapentin 300 mg capsule 300 mg PO TID levetiracetam 500 mg tablet 500 mg PO BID nitroglycerin 0.4 mg tablet, sublingual 0.4 mg sublingual Q5-15M PRN (Reason: chest pain) Rx Instructions: do not exceed 3 doses per episode mecobalamin (vitamin B12) 1,000 mcg tablet,chewable 1,000 mcg PO DAILY aspirin 81 MG tablet,chewable 81 mg PO DAILY@0800 atenolol 25 mg tablet 25 mg PO QODAY trospium 20 mg tablet 20 mg PO Q24H Patient Comments: STARTED AFTER STOPPING DONEPEZIL UNDER PCP INSTRUCTION. had x2 doses per pts mirabegron 50 mg tablet extended release 24 hr 50 mg PO DAILY triamcinolone acetonide [24 Hour Nasal Allergy] 55 mcg aerosol,spray 2 spray intranasal DAILY PRN (Reason: congestion) Rx Instructions: administer into each nostril paroxetine HCl 10 mg tablet 10 mg PO DAILY cholecalciferol (vitamin D3) 25 mcg (1,000 unit) capsule 50 mcg PO QDAY Discontinued donepezil 5 mg tablet 5 mg PO QDAY Referrals / Follow Up: Matheus Fajardo MD [Primary Care Provider, Internal Medicine] - 09/12/25 11:00 am Disposition Disposition (needs filled in before D/C Order can be placed): Home, Self Care Charges/Coding Visit Charges Inpatient E&M: 92727 Disch Hosp >30min
--- NOTE | 2025-09-06 14:53 | PCM.HOSP.N ---
Hospitalist Note Oxygen testing reviewed, patient is ambulatory in the home and community and requires home oxygen with portability
--- NOTE | 2025-09-06 14:54 | PHA.DC.MC.R ---
Pharmacy [facility] Counseling Pharmacy Service has performed discharge medication reconciliation and counseling for this patient. 1. CEFDINIR 300MG PO BID X 5 DAYS 2. MEMANTINE 5MG PO BID X 2 WEEKS, THEN INCREASE TO 10MG 3. STOP DONEPEZIL The patient's discharge medication list was reviewed for discrepancies and discrepancies were resolved. The patient's was counseled on the following discharge medications and changes in medications for homegoing were reviewed. The Reason for Use, instructions for use, and potential side effects were reviewed for all new medications. The patient's questions regarding all of their medications were answered. The patient's was able to verbally demonstrate an understanding of their discharge medications. Medications at Discharge Home Medications aspirin 81 mg chewable tablet 81 mg PO DAILY@0800 preventative 07/06/14 atorvastatin 80 mg tablet 80 mg PO QHS cholesterol 09/02/19 gabapentin 300 mg capsule 300 mg PO TID neuropathy 09/18/22 mirabegron 50 mg tablet,extended release 24 hr 50 mg PO DAILY bladder 11/10/24 paroxetine HCl 10 mg tablet 10 mg PO DAILY mood 11/10/24 triamcinolone acetonide 55 mcg nasal spray aerosol (24 Hour Nasal Allergy) 2 spray intranasal DAILY PRN congestion 11/10/24 atenolol 25 mg tablet 25 mg PO QODAY heart 03/21/25 cholecalciferol (vitamin D3) 25 mcg (1,000 unit) capsule 50 mcg PO QDAY vitamin 03/21/25 levetiracetam 500 mg tablet 500 mg PO BID tremors 03/21/25 mecobalamin (vitamin B12) 1,000 mcg chewable tablet 1,000 mcg PO DAILY vitamin 08/31/25 nitroglycerin 0.4 mg sublingual tablet 0.4 mg sublingual Q5-15M PRN chest pain 08/31/25 trospium 20 mg tablet 20 mg PO Q24H bladder 09/03/25 cefdinir 300 mg capsule 300 mg PO BID #10 caps 09/06/25 memantine 5 mg tablet 5 mg PO BID #84 tabs 09/06/25
--- NOTE | 2025-09-06 15:17 | CASEMGMT ---
Patient has order for discharge. Patient requires oxygen at discharge, prefers [employer], script received and referral sent to [facility] via [facility] with arrangement for portable tank to be delivered to patient's room. MARIN MIR in to update of oxygen setup. RN CM updated that patient's Cpap is broke and was inquiring on how to go about getting it replaced. RN ADEOLA informed to follow up with DME provider to inquire about replacement. states he will follow-up with [facility] who supplied Cpap. RN CM also encourage to follow-up with PCP if new script is required. voiced understanding and appreciation. Patient had no more questions or concerns.
[2025-09-06 17:48] VITALS: BP 129/80; PULSE 56; RESP 17; TEMP 36.4; O2SAT 97
== END 2025-09-06 17:33 | disposition home or self-care (01) | DRG 193 ==
LOC: ED 15:58 → PCU 16:36
PROVIDERS: Admitting Provider Internal Medicine; Emergency Provider Emergency Medicine; PCP Internal Medicine; Visit Provider Internal Medicine
DX: J18.9 Pneumonia, unspecified organism (principal); G92.8 Other toxic encephalopathy; I65.02 Occlusion and stenosis of left vertebral artery; E11.40 Type 2 diabetes mellitus with diabetic neuropathy, unspecified; F02.80 Dementia in other diseases classified elsewhere, unspecified severity, without behavioral disturbance, psychotic disturbance, mood disturbance, and anxiety; G40.909 Epilepsy, unspecified, not intractable, without status epilepticus; I71.40 Abdominal aortic aneurysm, without rupture, unspecified; I10 Essential (primary) hypertension; I35.0 Nonrheumatic aortic (valve) stenosis; D32.0 Benign neoplasm of cerebral meninges; E11.51 Type 2 diabetes mellitus with diabetic peripheral angiopathy without gangrene; G30.9 Alzheimer's disease, unspecified; G47.33 Obstructive sleep apnea (adult) (pediatric); I25.2 Old myocardial infarction; K21.9 Gastro-esophageal reflux disease without esophagitis; I25.10 Atherosclerotic heart disease of native coronary artery without angina pectoris; E78.2 Mixed hyperlipidemia; F17.200 Nicotine dependence, unspecified, uncomplicated; I65.23 Occlusion and stenosis of bilateral carotid arteries; H91.90 Unspecified hearing loss, unspecified ear; R09.02 Hypoxemia; Z95.1 Presence of aortocoronary bypass graft; Z88.1 Allergy status to other antibiotic agents; Z88.0 Allergy status to penicillin; Z79.82 Long term (current) use of aspirin; Z79.899 Other long term (current) drug therapy
CPT/HCPCS: 36415; 51702; 70450; 70496; 70498; 70551; 71045; 80048; 80061; 81001; 84484; 85025; 85610; 85730; 87449; 87633; 92507; 93005; 93306; 94762; 95819; 97162; 97166; 99285; 99406; Q9957; Q9967; A4216